=== PATIENT | male | born 1945 | race Caucasian/White ===

== ENCOUNTER 2017-01-10 06:39 | Day surgery (SDC) | payer OTHER, MEDICARE ==
[2017-01-10] VITALS (7 sets, daily range): BP systolic 108–134; BP diastolic 63–75; PULSE 48–56; RESP 16–20; TEMP 97.5–97.7; O2SAT 94–98
[~2017-01-10] VITALS: Ht 190.5 cm; Wt 97.3 kg
[~2017-01-10 06:39] MED LIST: ACIP20TA19 PO; ALPR0.5T3 PO; ATEN-102 PO; LEXA20TA PO
[2017-01-10] MEDS ORDERED: ATEN50TA PO (07:29)
[2017-01-10] MEDS ORDERED: LEXA20TA PO (07:29)
[2017-01-10] MEDS ORDERED: ACIP20TA6 PO (07:29)
[2017-01-10] MEDS ORDERED: ALPR0.5T3 PO (07:29)
[2017-01-10] MEDS ORDERED: SODIUM CHLORIDE 0.9% FLUSH 10 ML FLUSH IV FLUSH PRN ×2 (07:30)
[2017-01-10] MEDS ORDERED: IMPLANTED VASCULAR ACCESS DEVICE/PORT - SODIUM CHLORIDE FLUSH PRN IV FLUSH (07:30)
[2017-01-10] MEDS ORDERED: SODIUM CHLOR 0.9% 1000 ML IV SCH (07:30)
[2017-01-10] MEDS ORDERED: IMPLANTED VASCULAR ACCESS DEVICE/PORT - SODIUM CHLORIDE FLUSH IV FLUSH SCH (07:30)
[2017-01-10] MEDS ORDERED: LIDOCAINE 1%/EPINEPHrine 1:100,000 SOLN 20 ML VIAL ONE (07:53)
[2017-01-10 07:58] LABS: AUTOMATED NEUTROPHIL # 0.2 TH/MM3 (1.8-7.7); BASOPHIL % 0.4 % (0.0-2.0); EOSINOPHIL % 1.5 % (0.0-4.0); LYMPH % 79.9 % (9.0-44.0); LYMPHOCYTE # 0.9 TH/MM3 (1.0-4.8); MEAN CELL VOLUME 96.2 FL (80.0-100.0); MEAN CORPUSCULAR HEMOGLOBIN 33.8 PG (27.0-34.0); MEAN CORPUSCULAR HGB CONC 35.1 % (32.0-36.0); MONO % 1.3 % (0.0-8.0); NEUT % 16.9 % (16.0-70.0); PLATELET COUNT 70 TH/MM3 (150-450); RED BLOOD COUNT 3.12 MIL/MM3 (4.50-5.90); RED CELL DISTRIBUTION WIDTH 17.9 % (11.6-17.2); WHITE BLOOD COUNT 1.2 TH/MM3 (4.0-11.0)
[2017-01-10 08:01] LABS: HEMO FLAGS AUTO DIFF
[2017-01-10] MEDS ORDERED: fentaNYL CITRATE 250 MCG/5 ML AMP ONE (08:32)
[2017-01-10] MEDS ORDERED: MIDAZOLAM HCL 5 MG/5 ML VIAL ONE (08:32)
[2017-01-10 08:42] LABS: BASOPHILS 1 % (0-2); EOSINOPHILS 1 % (0-4); POLYS (SEG NEUTROPHILS) 20 % (16-70); WBC DIFF SAMPLE 100
[2017-01-10 08:45] LABS: OVALOCYTES 1+ (NORMAL); PLATELET ESTIMATE SMEAR LOW (NORMAL); PLATELET MORPHOLOGY NORMAL (NORMAL); SCAN/DIFF FINAL DIFF MANUAL
[2017-01-10 08:47] LABS: NEUTROPHIL # MANUAL DIFF 0.2 TH/MM3 (1.8-7.7)
[2017-01-10 09:27] LABS: BONE MARROW PROCESSING COMPLETE; IRON STAIN DONE; JENNER GIEMSA STAIN DONE
[2017-01-10] MEDS ORDERED: oxyCODONE/ACETAMINOPHEN 5 MG/325 MG TAB PO PRN (10:15)
--- NOTE | 2017-01-10 14:02 | RADRPT ---
EXAM DATE/TIME: 01/10/2017 08:42 [facility] COMPARISON: CT NEEDLE BIOPSY BONE MARROW, February 28, 2016, 8:44. INDICATIONS : Myelodysplastic syndrome SEDATION TIME: 15 minutes BIOPSY SITE: Right iliac bone MEDICATION(S): 1.) 2.5 mg midazolam (Versed) IV 2.) 150 mcg fentanyl (Sublimaze) IV DEVICE(S): 1.) 12 gauge On-Control needle MEDICAL HISTORY : SURGICAL HISTORY : Cholecystectomy ENCOUNTER: Initial ACUITY: 1 day PAIN SCORE: 0/10 LOCATION: Right ilium A total of one core specimen(s) were obtained and sent to the laboratory for pathologic evaluation. PROCEDURE: 1. CT guided bone marrow biopsy. 2. Conscious sedation with continuous EKG and oximetry monitoring. 3. EKG and oximetry remained stable throughout the procedure. Prior to the procedure informed consent was obtained. Any appropriate prior imaging studies were rev iewed. Using automated exposure control and adjustment of the mA and/or kV according to patient size , radiation dose was kept as low as reasonably achievable to obtain optimal diagnostic quality images . The site was prepped in a sterile fashion. Full sterile technique was used, including cap, mask, radha rile gloves and gown and a large sterile sheet. Hand hygiene and 2% chlorhexidine and/or betadine/al cohol prep was utilized per protocol for cutaneous antisepsis. The skin and subcutaneous tissues wer e infiltrated with local anesthetic solution. With CT guidance the previously identified target was localized. Biopsy was performed using the presc ribed needle as above. Following biopsy marrow aspiration was performed with repeat puncture. Adequa te hemostasis was obtained with compression at the puncture site. Follow-up CT scan reveals no hemorrhage. Conscious sedation was performed with the prescribed dosages and duration as above in the presence of an independent trained radiology nurse to assist in the monitoring of the patient. EKG and oximetry remained stable throughout the procedure. The patient tolerated the procedure well and there were no complications. The patient was sent to Radiology Outpatient Unit in stable condition. CONCLUSION: 1. Uncomplicated CT guided bone marrow aspirate. 2. Uncomplicated CT guided bone marrow biopsy. Cecilio Strange MD on January 10, 2017 at 13:59 Board Certified Radiologist. This report was verified electronically.
== END 2017-01-10 11:55 | disposition home or self-care (01) ==
LOC: HRAD 06:39 → HRIP 06:40 → HRAD 11:55
PROVIDERS: ATTEND Internal Medicine
DX: D46.9 Myelodysplastic syndrome, unspecified (principal)
CPT/HCPCS: 38221; 77012; 85007; 85027; 85097; 88305; 88311; 88313; 88341; 88342; 99152; C1830; G0364; J2250; J3010; 20225

== ENCOUNTER 2017-05-10 07:56 | Day surgery (SDC) | payer OTHER, MEDICARE ==
[~2017-05-10] VITALS: Ht 190.5 cm; Wt 94.1 kg
[~2017-05-10 07:56] MED LIST changes: -ACIP20TA19 PO; +ACIP20TA6 PO; -ATEN-102 PO; +ATEN50TA PO
[2017-05-10 08:16] VITALS: BP 139/74; PULSE 83; RESP 18; TEMP 98.2; O2SAT 97
[2017-05-10] MEDS ORDERED: FLUC100T2 PO (08:37)
[2017-05-10] MEDS ORDERED: ACYC400T PO (08:37)
[2017-05-10] MEDS ORDERED: NYST1000 SWISH-SWAL (08:37)
[2017-05-10] MEDS ORDERED: MEGE40S PO (08:37)
[2017-05-10] MEDS ORDERED: CIPR250T52 PO (08:37)
[2017-05-10] MEDS ORDERED: SULF1TAB23 PO (08:37)
[2017-05-10 08:42] LABS: HEMATOCRIT 26.9 % (39.0-51.0); MEAN CELL VOLUME 89.8 FL (80.0-100.0); MEAN CORPUSCULAR HGB CONC 32.3 % (32.0-36.0); PLATELET COUNT 33 TH/MM3 (150-450); RED CELL DISTRIBUTION WIDTH 17.4 % (11.6-17.2)
[2017-05-10 08:50] LABS: APTT (PATIENT) 29.8 SEC (24.3-30.1); HEMO FLAGS AUTO DIFF; INTERNATIONAL NORMALIZED RATIO 1.2 RATIO; PROTHROMBIN TIME - PATIENT 13.4 SEC (9.8-11.6)
[2017-05-10] MEDS ORDERED: SODIUM CHLORIDE 0.9% FLUSH 10 ML FLUSH IV FLUSH PRN (09:00)
[2017-05-10] MEDS ORDERED: SODIUM CHLOR 0.9% 1000 ML IV SCH (09:00)
[2017-05-10] MEDS ORDERED: LIDOCAINE HCL 1% 20 ML VIAL ONE (09:35)
[2017-05-10] MEDS ORDERED: MIDAZOLAM HCL 2 MG/2 ML VIAL ONE ×2 (09:35→10:09)
[2017-05-10 09:41] LABS: BLASTS 88 % (0-0); WBC DIFF SAMPLE 100
[2017-05-10 09:43] LABS: OVALOCYTES 1+ (NORMAL); PLATELET ESTIMATE SMEAR LOW (NORMAL); PLATELET MORPHOLOGY NORMAL (NORMAL)
[2017-05-10 09:44] LABS: SCAN/DIFF FINAL DIFF MANUAL
--- NOTE | 2017-05-10 10:29 | PD.RAD ---
Post CT Procedure Prog Note Pre Procedure Diagnosis: (1) Anemia Post Procedure Diagnosis: (1) Pancytopenia Procedure Date: May 10, 2017 Supervising Radiologist: Ethan Lynne JR Anesthesia: Conscious Sedation Plan of Activity Patient to Unit: ROPU Patient Condition: Good See PACS Report for procedural detail/treatment Biopsy Imaging Guidance: CT Side: Left Biopsy Procedure: Bone Marrow Specimen: Core Biopsy, Fine Needle Aspirate Findings: Good core sample and aspirate of bone marrow from left iliac wing. Jr. Maged,Ethan Recio MD May 10, 2017 10:29
[2017-05-10 10:40] VITALS: BP 111/73; PULSE 72; RESP 18; TEMP 97.5; O2SAT 94
[2017-05-10 10:55] VITALS: BP 100/69; PULSE 65; RESP 18; O2SAT 94
[2017-05-10 11:02] LABS: BONE MARROW PROCESSING COMPLETE
[2017-05-10 11:03] LABS: IRON STAIN DONE; JENNER GIEMSA STAIN DONE
[2017-05-10 11:25] VITALS: BP 98/64; PULSE 60; RESP 16; O2SAT 94
[2017-05-10 11:55] VITALS: BP 109/68; PULSE 60; RESP 18; O2SAT 95
--- NOTE | 2017-05-10 12:00 | RADRPT ---
EXAM DATE/TIME: 05/10/2017 09:57 [facility] COMPARISON: CT NEEDLE BIOPSY BONE MARROW, January 10, 2017, 8:42. INDICATIONS : Myelodysplastic syndrome SEDATION TIME: 20 minutes BIOPSY SITE: Left ilium MEDICATION(S): 1.) 6 mg midazolam (Versed) IV 2.) 300 mcg fentanyl (Sublimaze) IV DEVICE(S): 1.) 12 gauge On-Control needle MEDICAL HISTORY : Lymphoma. SURGICAL HISTORY : Cholecystectomy ENCOUNTER: Initial ACUITY: 1 day PAIN SCORE: 0/10 LOCATION: Left pelvis A total of one core specimen(s) were obtained and sent to the laboratory for pathologic evaluation. PROCEDURE: 1. CT guided bone marrow biopsy. Prior to the procedure informed consent was obtained. Any appropriate prior imaging studies were rev iewed. Using automated exposure control and adjustment of the mA and/or kV according to patient size , radiation dose was kept as low as reasonably achievable to obtain optimal diagnostic quality images . DICOM format image data is available electronically for review and comparison. The site was prepped in a sterile fashion. Full sterile technique was used, including cap, mask, radha rile gloves and gown and a large sterile sheet. Hand hygiene and 2% chlorhexidine and/or betadine/al cohol prep was utilized per protocol for cutaneous antisepsis. The skin and subcutaneous tissues wer e infiltrated with local anesthetic solution. With CT guidance the previously identified target was localized. Biopsy was performed using the presc ribed needle as above. Following biopsy marrow aspiration was performed with repeat puncture. Adequa te hemostasis was obtained with compression at the puncture site. Follow-up CT scan reveals no hemorrhage. Conscious sedation was performed with the prescribed dosages and duration as above in the presence of an independent trained radiology nurse to assist in the monitoring of the patient. EKG and oximetry remained stable throughout the procedure. The patient tolerated the procedure well and there were no complications. The patient was sent to Radiology Outpatient Unit in stable condition. CONCLUSION: 1. Uncomplicated CT guided bone marrow aspirate. 2. Uncomplicated CT guided bone marrow biopsy. Ethan Lynne Jr., MD on May 10, 2017 at 11:57 Board Certified Radiologist. This report was verified electronically.
== END 2017-05-10 12:30 | disposition home or self-care (01) ==
LOC: HRAD 07:56 → HRIP 08:01 → HRAD 12:30
PROVIDERS: ATTEND Internal Medicine
DX: C92.00 Acute myeloblastic leukemia, not having achieved remission (principal); D61.818 Other pancytopenia; Z01.812 Encounter for preprocedural laboratory examination
CPT/HCPCS: 38221; 77012; 85007; 85027; 85097; 85610; 85730; 88305; 88311; 88313; 99152; 99153; C1830; G0364; J1642; J2250; J3010

== ENCOUNTER 2017-05-15 12:10 | Inpatient (IN) | payer OTHER, MEDICARE ==
[~2017-05-15] VITALS: Ht 190.5 cm; Wt 89.7 kg
[~2017-05-15 12:10] MED LIST changes: +ACYC400T PO; +CIPR250T52 PO; +FLUC100T2 PO; +MEGE40S PO; +NYST1000 SWISH-SWAL; +SULF1TAB23 PO
[2017-05-15 12:45] VITALS: BP 116/64; PULSE 81; RESP 18; TEMP 99.1; O2SAT 98
[2017-05-15] MEDS ORDERED: SODIUM CHLOR 0.9% 1000 ML INJ 1,000 ML IV SCH (13:00)
[2017-05-15] MEDS ORDERED: ALTEPLASE RECOMBINANT 2 MG VIAL IVF PRN (15:00)
[2017-05-15 15:40] LABS: HEMATOCRIT 22.2 % (39.0-51.0); MEAN CELL VOLUME 91.1 FL (80.0-100.0); MEAN CORPUSCULAR HEMOGLOBIN 29.8 PG (27.0-34.0); MEAN CORPUSCULAR HGB CONC 32.7 % (32.0-36.0); PLATELET COUNT 13 TH/MM3 (150-450); RED BLOOD COUNT 2.43 MIL/MM3 (4.50-5.90); RED CELL DISTRIBUTION WIDTH 17.5 % (11.6-17.2); WHITE BLOOD COUNT 136.4 TH/MM3 (4.0-11.0)
[2017-05-15 15:49] LABS: HEMO FLAGS AUTO DIFF
--- NOTE | 2017-05-15 15:52 | RADRPT ---
EXAM DATE/TIME: 05/15/2017 14:57 [facility] COMPARISON: No previous studies available for comparison. INDICATIONS : T-cell lymphoma. Pre-chemotherapy. DOSE: 20.1 mCi Tc99m Ultratag labeled red blood cells IV PROJECTIONS: SAMARIA and LPO 45 EF: 72% MEDICAL HISTORY : Lymphoma. SURGICAL HISTORY : Inguinal hernia repair. Cholecystectomy. ENCOUNTER: Initial ACUITY: 1 day PAIN SCALE: 2/10 LOCATION: Bilateral chest TECHNIQUE: Following the modified in [place] Spill Control labeling of autologous red blood cells and reinjection, planar image s gated to the ECG cycle were obtained in specified projections. Fourier analysis and calculation of ejection fraction were performed. FINDINGS: CHAMBER-SIZE: There is normal size and configuration to the left ventricle, right ventricle, and atria. WALL MOTION: No wall motion abnormalities seen. No segmental hypokinesia is observed. MISCELLANEOUS: No abnormal accumulation of red cells is seen. CONCLUSION: Normal study. Ejection fraction 72% Man Burden MD on May 15, 2017 at 15:50 Board Certified Radiologist. This report was verified electronically.
[2017-05-15 16:00] VITALS: BP 135/65; PULSE 73; RESP 18; TEMP 98.9; O2SAT 94
[2017-05-15 16:06] LABS: ALT (GPT) 28 U/L (12-78); ANION GAP 8 MEQ/L (5-15); AST (GOT) 28 U/L (15-37); BICARBONATE 26.4 MEQ/L (21.0-32.0); BLOOD UREA NITROGEN 12 MG/DL (7-18); CHLORIDE 107 MEQ/L (98-107); GLOMERULAR FILTRATION RATE 57 ML/MIN (>89); POTASSIUM 3.5 MEQ/L (3.5-5.1); SODIUM (NA) 141 MEQ/L (136-145); URIC ACID 6.5 MG/DL (2.6-7.2)
[2017-05-15 16:15] LABS: ALKALINE PHOSPHATASE 54 U/L (45-117); LDH SERUM 1064 U/L (87-241); TOTAL BILIRUBIN ADULT 0.3 MG/DL (0.2-1.0)
[2017-05-15 16:22] LABS: APTT (PATIENT) 32.9 SEC (24.3-30.1); INTERNATIONAL NORMALIZED RATIO 1.2 RATIO; PROTHROMBIN TIME - PATIENT 13.4 SEC (9.8-11.6)
[2017-05-15 16:36] LABS: BLASTS 83 % (0-0); WBC DIFF SAMPLE 100
[2017-05-15 16:37] LABS: OVALOCYTES 1+ (NORMAL); PLATELET ESTIMATE SMEAR LOW (NORMAL); PLATELET MORPHOLOGY NORMAL (NORMAL); SCAN/DIFF FINAL DIFF MANUAL
[2017-05-15] MEDS ORDERED: SODIUM CHLOR 0.9% 250 ML INJ 250 ML IV ONE (17:15)
--- NOTE | 2017-05-15 18:37 | PD.RAD ---
Post Procedure Progress Note Pre Procedure Diagnosis: (1) MDS (myelodysplastic syndrome), high grade Post Procedure Diagnosis: (1) MDS (myelodysplastic syndrome), high grade Procedure Date: May 15, 2017 Supervising Radiologist: Man Burden Proceduralist/Assist: RT Mike(R)(CV) Anesthesia: Local Plan of Activity Patient to Unit: Nursing Unit Patient Condition: Fair See PACS Report for procedural detail/treatment Central Venous Access Device Procedure 1 Left Internal Jugular Hemodialysis Catheter Non-Tunneled Placement dual lumen English: 14 Additional Detail: 20 cm Man Gonzalez MD May 15, 2017 18:37
[2017-05-15] MEDS ORDERED: HEPARIN SODIUM - IV 2,000 UNITS/2 ML VIAL IV FLUSH PRN (18:45)
--- NOTE | 2017-05-15 18:48 | RADRPT ---
EXAM DATE/TIME: 05/15/2017 17:46 [facility] COMPARISON: No previous studies available for comparison. INDICATIONS : Patient is in need of a temporary phoresis catheter due recurrent myelodysplastic syndrome. MEDICAL HISTORY : History of anemia with excessive blasts, T-cell cutaneous lymphoma, thrombocytopenia, pancytopenia, B arrett's esophagus. SURGICAL HISTORY : History of port placement, bone marrow biopsy, cholecystectomy, bilateral knee surgery. ENCOUNTER: Subsequent ACUITY: > 1 year PAIN SCORE: 0/10 FLUORO TIME: 0.9 minutes IMAGE SERIES: 0 ACCESS: Left internal jugular vein MEDICATION(S): 1.) 2500 units Heparin catheter lock DEVICE(S): 1.) 14 [place] dual lumen 20 cm Schon catheter PROCEDURE : 1. Ultrasound guided venipuncture. 2. Fluoroscopic guidance. 3. Central line placement. The risks, benefits and alternatives to the procedure were explained and verbal and written consent w as obtained. The site was prepped in sterile fashion. Full sterile technique was used, including ca p, mask, sterile gloves and gown and a large sterile sheet. Hand hygiene and 2% chlorhexidine prep w as utilized per protocol for cutaneous antisepsis with appropriate dry time for site. Sterile gel an d sterile probe cover were utilized for ultrasound guidance. The skin and subcutaneous tissues were infiltrated with local anesthetic solution. A suitable site a kevin the vein was selected with ultrasound and fluoroscopic guidance. A small incision was made. Th e vein was accessed under direct ultrasound visualization using the micropuncture technique. The mikey ropuncture set was exchanged for a 0.035 wire. The tract was dilated. The catheter was advanced int o position under direct fluoroscopic visualization. The catheter was fixed in place with suture and a sterile dressing was applied. The patient tolerated the procedure well and there were no complications. CONCLUSION: Uncomplicated line placement as above. Man Burden MD on May 15, 2017 at 18:46 Board Certified Radiologist. This report was verified electronically.
[2017-05-15] MEDS ORDERED: HYDROXYUREA 500 MG CAP PO ONE (19:30)
[2017-05-15 20:00] VITALS: BP 118/59; PULSE 71; RESP 18; TEMP 99.3; O2SAT 97
[2017-05-15] MEDS: ALLOPURINOL 100 MG TAB PO SCH (20:36)
[2017-05-15 21:00] VITALS: PULSE 69
[2017-05-15] MEDS ORDERED: CALCIUM GLUCONATE INJ 4 GM in SODIUM CHLOR 0.9% 250 ML INJ 200 ML IV SCH (23:15)
[2017-05-15] MEDS ORDERED: ANTICOAGULANT CITRATE DEXTROSE SOLN-A 1L OTHER ONE (23:15)
[2017-05-15] MEDS ORDERED: SODIUM CHLOR 0.9% 1000 ML IV SCH (23:15)
[2017-05-15] MEDS ORDERED: HEPARIN SODIUM - 10,000 UNITS/ML 1ML VIAL IV FLUSH PRN (23:15)
[2017-05-15] MEDS: ALPRAZolam 0.25 MG TAB PO PRN (23:27)
[2017-05-16] VITALS (11 sets, daily range): BP systolic 112–144; BP diastolic 64–83; PULSE 62–109; RESP 18–20; TEMP 96–98.9; O2SAT 71–99
[2017-05-16] MEDS: ACETAMINOPHEN 325 MG TAB PO PRN ×2 (00:07→13:59)
[2017-05-16] MEDS: LEVOFLOXACIN 500 MG TAB PO SCH ×2 (03:54→08:36)
[2017-05-16 05:57] LABS: INTERNATIONAL NORMALIZED RATIO 1.2 RATIO; PROTHROMBIN TIME - PATIENT 13.9 SEC (9.8-11.6)
--- NOTE | 2017-05-16 06:17 | MH ---
cc: AYE REDDY DATE OF ADMISSION: 05/15/2017 DATE OF 1945 REASON FOR ADMISSION Patient with acute myeloid leukemia with blast crisis. CHIEF COMPLAINT Dyspnea, headaches. HISTORY OF PRESENT ILLNESS Mr. 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 He recently had a bone marrow biopsy which confirmed the transformation of his disease. He had approximately 80-90% blast cells in the bone marrow. He was originally diagnosed with MDS in early 2015. At that time he was found to have anywhere from 10-15% blast cells. Flt3 mutation was negative, NPM1 positive. He was treated with Vidaza with good treatment response. He had recovery of his blood counts. She remained in remission until a few months ago when he became profoundly pancytopenic. Vidaza was stopped. He was receiving supportive care with platelets and packed red blood cell transfusions. The patient was switched to Dacogen and received one cycle of this treatment. However, his disease continued to progress and he remained severely pancytopenic. Over the last 10 days he has developed leukocytosis and his white blood cell count has been precipitously rising. The patient is now being admitted to the hospital for induction chemotherapy for transformed acute myeloid leukemia. This case was discussed with [facility]. The patient has seen the transplant team and was being considered for stem-cell transplant. He was awaiting an appropriate donor. In light of recent transformation to acute myeloid leukemia with high blast count, the patient will need induction chemotherapy to bring his disease into remission prior to any consideration for stem-cell transplant. On admission today his WBC is 136.4, his hemoglobin is 7.2 and his platelet count is 13. He complains of shortness of breath. He has also been having occasional headaches. He denies any nose bleeds or gum bleeds, no fevers or chills. No diarrhea or constipation. He denies any pain. ECOG performance status is 0. REVIEW OF SYSTEMS A comprehensive 14-point review of systems was completed which is negative except as described in the HPI. PAST MEDICAL HISTORY History of myelodysplastic syndrome with conversion to acute myeloid leukemia. PAST SURGICAL HISTORY None. MEDICATIONS 1. Citalopram 20 mg daily. 2. Protonix 20 mg daily. 3. Megace 300 p.o. daily. 4. Bactrim DS Sunday, Sunday and Sunday. 5. Diflucan 100 mg p.o. daily. 6. Acyclovir 400 mg p.o. b.i.d. 7. Cipro 500 mg Sunday, and Saturdays. ALLERGIES No known drug allergies. FAMILY HISTORY Reviewed and is noncontributory to this admission. SOCIAL HISTORY He does not smoke cigarettes. Rare alcohol intake. Admits to marijuana use. PHYSICAL EXAMINATION VITAL SIGNS: Blood pressure is 116/64, pulse is in the 80s, temperature is 99.1. GENERAL: Well-developed, well-nourished male in no apparent distress. HEENT: Pupils are equal, round, reactive to light. EOMI. No oral thrush. No oral lesions. NECK: Supple. No JVD, no bruits. No lymphadenopathy. CHEST: Clear to auscultation bilaterally. CARDIAC: S1, S2. Regular rate and rhythm. ABDOMEN: Soft, nontender, nondistended. Bowel sounds are present. EXTREMITIES: Without any edema, erythema or cyanosis. SKIN: Without any petechiae, lesion or bruises. NEURO: No focal deficits. Complains of headaches. LABORATORY DATA WBCs 136.4, hemoglobin 7.2, platelet count 13. Serum chemistries show sodium of 141, potassium 3.5, chloride 107, CO2 26.4, BUN 12, creatinine 1.25, GFR is 57, uric acid is 6.5, phosphorus 3.5, AST is 28, ALT 28, alk phos is 54, LDH is elevated to 1064, albumin is 3.2. ASSESSMENT AND PLAN This is a 72-year-old male who has a history of MDS which has now transformed to acute myeloid leukemia. He presents with hyperleukocytosis and acute blast crises. 1. Leukocytosis/acute blast crisis/high-risk leukemia, conversion from MDS. In light of a high white blood cell count and symptoms of dyspnea and occasional headaches, we will proceed with emergent leukapheresis. He has a high risk of developing a thrombotic events. We have contacted [facility] and I have signed orders for white blood cell depletion. I will give him one dose of Hydrea today. In order to control his blood counts, he needs to be started on induction chemotherapy as soon as possible. We will begin his treatment tomorrow. If he has any worsening of symptoms such as worsening headaches, we will need to obtain MRI of the brain with and without contrast. If he becomes more dyspneic, then we will consider CT of the chest with and without contrast. In the absence of any worsening of these symptoms, we will continue to monitor. 2. 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 He recently had a bone marrow biopsy which confirmed this transformation. He has up to 80% blast cell involvement in the bone marrow. FISH and cytogenetic studies are pending. I will follow up. We will order testing for PML/RAR alpha. I have signed off on his chemotherapy orders. He will be treated with idarubicin and cytarabine 7+3 regimen. 3. High risk for tumor lysis syndrome. We will monitor uric acid, phosphorus and metabolic profile on a daily basis. I am starting him on allopurinol 100 mg p.o. b.i.d. He does have elevated LDH. At this time the uric acid is within normal range. If it does go up, we will consider giving him rasburicase. 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 Hemoglobin is 7.2. We will transfuse him for hemoglobin of 7 or less. He will be given irradiated/CMV-negative blood products. We will avoid over-transfusion to reduce the risk of alloantibodies formation. 5. Thrombocytopenia. The threshold for platelet transfusions is a platelet count of 10 or less. 6. ID prophylaxis. We will continue with Bactrim double strength Sunday, Sunday and Sunday, levofloxacin 500 mg daily which will be switched to Cipro 500 Tuesdays, and Saturdays if he remains afebrile over the next few days. We will continue oral Diflucan 100 mg daily and prophylaxis with acyclovir 400 mg p.o. b.i.d. 7. Fluid, electrolyte and nutrition. Continue Megace. Encourage oral intake, neutropenic diet. Check daily magnesium, phosphorus and calcium. 8. High risk for DIC/coagulopathy. Check daily fibrinogen levels. We will check his coags and LDH and haptoglobin [id number]. MD LETITIA Kaminski/JOO /12:59 AM /5:44 AM KELLY
[2017-05-16 06:19] LABS: ALT (GPT) 20 U/L (12-78); ANION GAP 6 MEQ/L (5-15); AST (GOT) 24 U/L (15-37); BICARBONATE 29.7 MEQ/L (21.0-32.0); BLOOD UREA NITROGEN 10 MG/DL (7-18); CHLORIDE 105 MEQ/L (98-107); GLOMERULAR FILTRATION RATE 64 ML/MIN (>89); POTASSIUM 3.2 MEQ/L (3.5-5.1); SODIUM (NA) 141 MEQ/L (136-145); URIC ACID 5.8 MG/DL (2.6-7.2)
[2017-05-16 06:21] LABS: ALKALINE PHOSPHATASE 49 U/L (45-117); TOTAL BILIRUBIN ADULT 0.4 MG/DL (0.2-1.0)
[2017-05-16] MEDS ORDERED: HYDROXYUREA 500 MG CAP PO ONE (07:00)
[2017-05-16] MEDS: ALLOPURINOL 100 MG TAB PO SCH ×2 (08:36→20:59)
[2017-05-16] MEDS: SULFAMETHOXAZOLE-TRIMETHOPRIM DS 800-160 MG TAB PO SCH (08:36)
[2017-05-16] MEDS: PANTOPRAZOLE SOD 20 MG DELAYED RELEASE TAB PO SCH (08:36)
[2017-05-16] MEDS: CITALOPRAM HYDROBROMIDE 20 MG TAB PO SCH (08:36)
[2017-05-16] MEDS: FLUCONAZOLE 100 MG TAB PO SCH (08:37)
[2017-05-16] MEDS: ACYCLOVIR 200 MG CAP PO SCH ×2 (08:37→20:59)
[2017-05-16] MEDS ORDERED: MEGESTROL ACETATE 40 MG TAB PO SCH (09:00)
--- NOTE | 2017-05-16 09:17 | RADRPT ---
EXAM DATE/TIME: 05/16/2017 07:41 [facility] COMPARISON: CHEST SINGLE AP, October 26, 2015, 19:25. INDICATIONS : Short of breath. MEDICAL HISTORY : Lymphoma. SURGICAL HISTORY : Inguinal hernia repair. Cholecystectomy ENCOUNTER: Subsequent ACUITY: 1 day PAIN SCORE: 0/10 LOCATION: Bilateral chest FINDINGS: Right [id number] catheter tip and left internal jugular catheter tip projects over the caval atria l junction. No evidence of pneumothorax. The lungs are symmetrically aerated. No focal infiltrate seen. The heart is normal in size. The central bronchopulmonary markings and hemidiaphragms well de lineated. CONCLUSION: The lungs are clear. No evidence of pneumothorax. Ethan Sabillon MD on May 16, 2017 at 9:14 Board Certified Radiologist. This report was verified electronically.
[2017-05-16 10:04] LABS: MEAN CORPUSCULAR HEMOGLOBIN 30.2 PG (27.0-34.0); MEAN CORPUSCULAR HGB CONC 34.3 % (32.0-36.0); PLATELET COUNT 22 TH/MM3 (150-450); RED BLOOD COUNT 2.33 MIL/MM3 (4.50-5.90); RED CELL DISTRIBUTION WIDTH 16.7 % (11.6-17.2); WHITE BLOOD COUNT 44.4 TH/MM3 (4.0-11.0)
[2017-05-16 10:07] LABS: HEMO FLAGS AUTO DIFF
[2017-05-16 10:12] LABS: HEMATOCRIT 20.5 % (39.0-51.0)
[2017-05-16] MEDS: ONDANSETRON HCL 4 MG/2 ML VIAL IV PUSH PRN (10:30)
[2017-05-16] MEDS ORDERED: MAGICADU2 SWISH-SWAL (10:46)
[2017-05-16 10:53] LABS: BLASTS 88 % (0-0); NEUTROPHIL # MANUAL DIFF 0.4 TH/MM3 (1.8-7.7); PLATELET ESTIMATE SMEAR LOW (NORMAL); PLATELET MORPHOLOGY NORMAL (NORMAL); POLYS (SEG NEUTROPHILS) 1 % (16-70); SCAN/DIFF FINAL DIFF MANUAL; SMUDGE CELLS PRESENT PRESENT; WBC DIFF SAMPLE 100
[2017-05-16] MEDS ORDERED: SODIUM CHLOR 0.9% 250 ML INJ 250 ML IV ONE (11:30)
--- NOTE | 2017-05-16 11:59 | PD.ONC.PN ---
Subjective Subjective Remarks Afebrile overnight. Patient resting in bed. Feeling better after leukapheresis and blood transfusion overnight. multiple questions about upcoming hospitalization and chemotherapy Objective Data Date Time Temp Pulse Resp B/P (MAP) Pulse Ox O2 Delivery O2 Flow Rate FiO2 05/16/17 08:00 96.4 70 18 112/71 (85) 98 05/16/17 05:59 96.1 75 20 137/76 99 05/16/17 05:17 97.5 73 18 121/74 97 05/16/17 04:22 96.8 84 20 122/72 99 05/16/17 04:07 97.6 76 19 121/71 71 05/16/17 02:00 19 05/15/17 21:00 69 05/15/17 20:00 99.3 71 18 118/59 (78) 97 05/15/17 16:00 98.9 73 18 135/65 (88) 94 05/15/17 12:45 99.1 81 18 116/64 (81) 98 05/16/17 05/16/17 05/16/17 07:00 15:00 23:00 Intake Total 347 ml 410 ml Balance 347 ml 410 ml Result Diagram: 05/16/17 0945 05/16/17 0514 Laboratory Results Laboratory Tests Test 05/15/17 14:12 05/15/17 20:30 05/16/17 05:14 05/16/17 09:45 White Blood Count 136.4 TH/MM3 44.4 TH/MM3 Red Blood Count 2.43 MIL/MM3 2.33 MIL/MM3 Hemoglobin 7.2 GM/DL 7.0 GM/DL Hematocrit 22.2 % 20.5 % Mean Corpuscular Volume 91.1 FL 88.0 FL Mean Corpuscular Hemoglobin 29.8 PG 30.2 PG Mean Corpuscular Hemoglobin Concent 32.7 % 34.3 % Red Cell Distribution Width 17.5 % 16.7 % Platelet Count 13 TH/MM3 22 TH/MM3 Mean Platelet Volume 8.4 FL 8.5 FL Lymphocytes (%) (Auto) % CBC Comment AUTO DIFF AUTO DIFF Differential Total Cells Counted 100 100 Lymphocytes % 17 % 10 % Neutrophils # (Manual) 0.0 TH/MM3 0.4 TH/MM3 Differential Comment FINAL DIFF MANUAL FINAL DIFF MANUAL Blastocytes 83 % 88 % Platelet Estimate LOW LOW Platelet Morphology Comment NORMAL NORMAL Ovalocytes 1+ Prothrombin Time 13.4 SEC 13.9 SEC Prothromb Time International Ratio 1.2 RATIO 1.2 RATIO Activated Partial Thromboplast Time 32.9 SEC Blood Urea Nitrogen 12 MG/DL 10 MG/DL Creatinine 1.25 MG/DL 1.13 MG/DL Random Glucose 98 MG/DL 103 MG/DL Total Protein 6.9 GM/DL 5.9 GM/DL Albumin 3.2 GM/DL 2.8 GM/DL Calcium Level 9.0 MG/DL 9.1 MG/DL Uric Acid 6.5 MG/DL 5.8 MG/DL Alkaline Phosphatase 54 U/L 49 U/L Aspartate Amino Transf (AST/SGOT) 28 U/L 24 U/L Alanine Aminotransferase (ALT/SGPT) 28 U/L 20 U/L Lactate Dehydrogenase 1064 U/L Total Bilirubin 0.3 MG/DL 0.4 MG/DL Sodium Level 141 MEQ/L 141 MEQ/L Potassium Level 3.5 MEQ/L 3.2 MEQ/L Chloride Level 107 MEQ/L 105 MEQ/L Carbon Dioxide Level 26.4 MEQ/L 29.7 MEQ/L Anion Gap 8 MEQ/L 6 MEQ/L Estimat Glomerular Filtration Rate 57 ML/MIN 64 ML/MIN Phosphorus Level 3.5 MG/DL Haptoglobin 189 MG/DL Fibrinogen 449 mg/dL Neutrophils % (Manual) 1 % Monocytes % 1 % Smudge Cells PRESENT Red Cell Morphology Comment NORMAL Imaging Studies Last 24 hours Impressions Chest X-Ray 05/16/17 0700 Signed Impressions: Service Date/Time: Tuesday, May 16, 2017 07:41 - CONCLUSION: The lungs are clear. No evidence of pneumothorax. Ethan Sabillon MD Administered Medications Medications (Trade) Dose Ordered Sig/Ivelisse Route PRN Reason Start Time Stop Time Status Last Admin Dose Admin Acetaminophen (Tylenol) 650 mg Q4H PRN PO fever>100.4 05/15/17 13:00 05/16/17 00:07 Citalopram Hydrobromide (CeleXA) 20 mg DAILY PO 05/16/17 09:00 05/16/17 08:36 Alprazolam (Xanax) 0.25 mg Q4H PRN PO anxiety 05/15/17 14:00 05/15/17 23:27 Pantoprazole Sodium (Protonix) 20 mg DAILY PO 05/16/17 09:00 05/16/17 08:36 Ondansetron HCl (Zofran Inj) 4 mg Q6HR PRN IV PUSH nausea 05/15/17 14:00 05/16/17 10:30 Allopurinol (Zyloprim) 100 mg BID PO 05/15/17 21:00 05/16/17 08:36 Levofloxacin (Levaquin) 500 mg DAILY PO 05/16/17 00:30 05/16/17 08:36 Trimethoprim/ Sulfamethoxazole (Bactrim Ds 800-160 Mg) 1 tab MoWeFr@09 PO 05/16/17 09:00 05/16/17 08:36 Fluconazole (Diflucan) 100 mg DAILY PO 05/16/17 09:00 05/16/17 08:37 Acyclovir (Zovirax) 400 mg BID PO 05/16/17 09:00 05/16/17 08:37 Objective Remarks GENERAL: Elderly male upright in bed in nad SKIN: Warm and dry. HEAD: Normocephalic. EYES: No injection or drainage. MOUTH: oral ulcers, left tongue NECK: Supple, trachea midline. vas-cath, left neck. no bleeding CARDIOVASCULAR: Regular rate and rhythm RESPIRATORY: Breath sounds equal bilaterally. No accessory muscle use. GASTROINTESTINAL: Abdomen soft, non-tender, nondistended. EXTREMITIES: No cyanosis NEUROLOGICAL: awake and alert, normal speech. Assessment/Plan Problem List: (1) AML (acute myeloblastic leukemia) ICD Codes: C92.00 - Acute myeloblastic leukemia, not having achieved remission Plan: --FISH and cytogenetic studies are pending. 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 --He presented with hyperleukocytosis and acute blast crises. --on Allopurinol 100mg PO BID for prophylaxis 05/15/17: Admission. given Hydrea. [facility] performed Leukapheresis bringing WBC from >100K to 44K. 05/16/17: D1. SONIA-C + Maria Del Rosario. 1 unit pRBC (2) Pancytopenia ICD Codes: D61.818 - Other pancytopenia Status: Acute Plan: --transfuse him for hemoglobin of 7 or less. -- irradiated/CMV-negative blood products. --transfuse for platelet count of 10 or less. --Bactrim DS MWF, Levaquin, Diflucan 100mg daily, Acyclovir 400mg PO BID (3) Coagulopathy ICD Codes: D68.9 - Coagulation defect, unspecified Plan: --Check daily fibrinogen levels. --check his coags and LDH and haptoglobin [id number]. Assessment 72y/o male with acute myeloid leukemia with blast crisis. 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 Plan 1. start SONIA-C + Maria Del Rosario. 2. give 1 unit pRBC 3. resume magic mouthwash for mouth ulcers Attending Statement The exam, history, and the medical decision-making described in the above note were completed with the assistance of the mid-level provider. I reviewed and agree with the findings presented. I attest that I had a [id number] encounter with the patient on the same day, and personally performed and documented my assessment and findings in the medical record. HIgh risk AML with transformation from MDS Hyperleukocytosis better after leukophoresis and Hydrea Will not need any further Leukophoresis Start induction chemotherapy D#1 Transfuse 1 unit of platelets no evidence of DIC Check Uric acid in am check fibrinogen am d/w rn o/n events reviewed Problem Qualifiers (1) AML (acute myeloblastic leukemia): Qualified Codes: C92.00 - Acute myeloblastic leukemia, not having achieved remission Oma Chavez May 16, 2017 11:59 Shar Ibanez MD May 16, 2017 23:19
[2017-05-16] MEDS: NYSTAT/DIPHENHY/LIDO MOUTHWASH (Adult) 120ML SWISH-SWAL SCH ×3 (13:00→21:00)
[2017-05-16] MEDS: SODIUM CHLOR 0.9% 1000 ML INJ 1,000 ML IV SCH (13:00)
[2017-05-16] MEDS ORDERED: POTASSIUM CHLORIDE 20 MEQ CONTROLLED RELEASE TAB PO ONE (13:00)
[2017-05-16] MEDS: diphenhydrAMINE HCL 25 MG CAP PO PRN (13:59)
[2017-05-16] MEDS: SODIUM CHLORIDE 0.9% IV SCH (14:47)
[2017-05-16] MEDS: IDARUBICIN IV SCH (14:47)
[2017-05-16] MEDS: ALPRAZolam 0.25 MG TAB PO PRN ×2 (14:49→21:03)
[2017-05-16] MEDS: GRANISETRON INJ 1 MG, DEXAMETHASONE INJ 20 MG in SODIUM CHLORIDE 0.9% INJ 50 ML IV SCH (15:35)
[2017-05-16] MEDS: MEGESTROL ACETATE SUSP 400 MG/10 ML CUP PO SCH (15:43)
[2017-05-16] MEDS: SODIUM CHLORID 0.9% IV SCH (17:47)
[2017-05-16] MEDS: CYTARABINE IV SCH (17:47)
[2017-05-17] VITALS (8 sets, daily range): BP systolic 114–137; BP diastolic 66–79; PULSE 66–95; RESP 16–18; TEMP 96.7–97.7; O2SAT 97–99
[2017-05-17] MEDS: SODIUM CHLOR 0.9% 1000 ML INJ 1,000 ML IV SCH ×2 (02:20→15:40)
[2017-05-17 06:33] LABS: HEMATOCRIT 23.6 % (39.0-51.0); MEAN CELL VOLUME 85.5 FL (80.0-100.0); MEAN CORPUSCULAR HEMOGLOBIN 29.3 PG (27.0-34.0); MEAN CORPUSCULAR HGB CONC 34.2 % (32.0-36.0); RED BLOOD COUNT 2.76 MIL/MM3 (4.50-5.90); RED CELL DISTRIBUTION WIDTH 18.4 % (11.6-17.2); WHITE BLOOD COUNT 23.5 TH/MM3 (4.0-11.0)
[2017-05-17 06:35] LABS: HEMO FLAGS AUTO DIFF; PLATELET COUNT 17 TH/MM3 (150-450)
[2017-05-17 07:00] LABS: APTT (PATIENT) 29.6 SEC (24.3-30.1); INTERNATIONAL NORMALIZED RATIO 1.2 RATIO; PROTHROMBIN TIME - PATIENT 13.1 SEC (9.8-11.6)
[2017-05-17 07:19] LABS: ALKALINE PHOSPHATASE 53 U/L (45-117); ALT (GPT) 26 U/L (12-78); ANION GAP 7 MEQ/L (5-15); AST (GOT) 26 U/L (15-37); BICARBONATE 26.3 MEQ/L (21.0-32.0); BLOOD UREA NITROGEN 15 MG/DL (7-18); CHLORIDE 105 MEQ/L (98-107); GLOMERULAR FILTRATION RATE 66 ML/MIN (>89); LDH SERUM 1018 U/L (87-241); MAGNESIUM 1.8 MG/DL (1.5-2.5); POTASSIUM 4.2 MEQ/L (3.5-5.1); SODIUM (NA) 138 MEQ/L (136-145); TOTAL BILIRUBIN ADULT 0.3 MG/DL (0.2-1.0); URIC ACID 4.6 MG/DL (2.6-7.2)
[2017-05-17 08:26] LABS: BASOPHILS 0 % (0-2); BLASTS 84 % (0-0); CORRECTED NUCLEATED RBC 1 /100 WBC (0-0); WBC DIFF SAMPLE 100
[2017-05-17 08:27] LABS: ACANTHOCYTES OCC (NORMAL); PLATELET ESTIMATE SMEAR RARE (NORMAL); PLATELET MORPHOLOGY NORMAL (NORMAL); SCAN/DIFF FINAL DIFF MANUAL; SMUDGE CELLS PRESENT PRESENT
[2017-05-17] MEDS: ACYCLOVIR 200 MG CAP PO SCH ×2 (08:51→21:03)
[2017-05-17] MEDS: LEVOFLOXACIN 500 MG TAB PO SCH (08:51)
[2017-05-17] MEDS: FLUCONAZOLE 100 MG TAB PO SCH (08:51)
[2017-05-17] MEDS: NYSTAT/DIPHENHY/LIDO MOUTHWASH (Adult) 120ML SWISH-SWAL SCH ×4 (08:52→21:04)
[2017-05-17] MEDS: ALLOPURINOL 100 MG TAB PO SCH ×2 (08:52→21:03)
[2017-05-17] MEDS: PANTOPRAZOLE SOD 20 MG DELAYED RELEASE TAB PO SCH (08:52)
[2017-05-17] MEDS: CITALOPRAM HYDROBROMIDE 20 MG TAB PO SCH (08:52)
[2017-05-17] MEDS: MEGESTROL ACETATE SUSP 400 MG/10 ML CUP PO SCH (08:52)
[2017-05-17] MEDS: ALPRAZolam 0.25 MG TAB PO PRN ×2 (08:56→21:03)
--- NOTE | 2017-05-17 09:15 | PD.ONC.PN ---
Subjective Subjective Remarks Afebrile overnight. Patient resting in room in nad. "I feel great today." Tolerated chemo yesterday. Objective Data Date Time Temp Pulse Resp B/P (MAP) Pulse Ox O2 Delivery O2 Flow Rate FiO2 05/17/17 05:40 96.9 95 18 133/78 (96) 98 05/17/17 04:00 70 05/17/17 00:00 97.7 74 17 115/69 (84) 97 05/17/17 00:00 76 05/16/17 20:00 96.7 77 18 134/71 (92) 96 05/16/17 20:00 66 05/16/17 16:00 68 05/16/17 15:49 98.9 80 18 144/83 97 05/16/17 15:30 62 18 129/72 95 05/16/17 14:22 97.3 76 18 126/67 (86) 97 05/16/17 12:00 96.0 109 20 120/64 (82) 96 05/16/17 12:00 87 Result Diagram: 05/17/17 0516 05/17/17 0516 Laboratory Results Laboratory Tests Test 05/16/17 09:45 05/17/17 05:16 05/17/17 05:35 White Blood Count 44.4 TH/MM3 23.5 TH/MM3 Red Blood Count 2.33 MIL/MM3 2.76 MIL/MM3 Hemoglobin 7.0 GM/DL 8.1 GM/DL Hematocrit 20.5 % 23.6 % Mean Corpuscular Volume 88.0 FL 85.5 FL Mean Corpuscular Hemoglobin 30.2 PG 29.3 PG Mean Corpuscular Hemoglobin Concent 34.3 % 34.2 % Red Cell Distribution Width 16.7 % 18.4 % Platelet Count 22 TH/MM3 17 TH/MM3 Mean Platelet Volume 8.5 FL 8.5 FL CBC Comment AUTO DIFF AUTO DIFF Differential Total Cells Counted 100 100 Neutrophils % (Manual) 1 % Lymphocytes % 10 % 16 % Monocytes % 1 % Neutrophils # (Manual) 0.4 TH/MM3 Differential Comment FINAL DIFF MANUAL FINAL DIFF MANUAL Blastocytes 88 % 84 % Smudge Cells PRESENT PRESENT Platelet Estimate LOW RARE Platelet Morphology Comment NORMAL NORMAL Red Cell Morphology Comment NORMAL Basophils % 0 % Nucleated Red Blood Cells 1 /100 WBC Acanthocytes OCC Prothrombin Time 13.1 SEC Prothromb Time International Ratio 1.2 RATIO Activated Partial Thromboplast Time 29.6 SEC Fibrinogen 449 mg/dL Blood Urea Nitrogen 15 MG/DL Creatinine 1.10 MG/DL Random Glucose 127 MG/DL Total Protein 6.5 GM/DL Albumin 3.0 GM/DL Calcium Level 8.6 MG/DL Phosphorus Level 4.1 MG/DL Magnesium Level 1.8 MG/DL Uric Acid 4.6 MG/DL Alkaline Phosphatase 53 U/L Aspartate Amino Transf (AST/SGOT) 26 U/L Alanine Aminotransferase (ALT/SGPT) 26 U/L Lactate Dehydrogenase 1018 U/L Total Bilirubin 0.3 MG/DL Sodium Level 138 MEQ/L Potassium Level 4.2 MEQ/L Chloride Level 105 MEQ/L Carbon Dioxide Level 26.3 MEQ/L Anion Gap 7 MEQ/L Estimat Glomerular Filtration Rate 66 ML/MIN Haptoglobin 223 MG/DL Administered Medications Medications (Trade) Dose Ordered Sig/Ivelisse Route PRN Reason Start Time Stop Time Status Last Admin Dose Admin Acetaminophen (Tylenol) 650 mg Q4H PRN PO fever>100.4 05/15/17 13:00 05/16/17 00:07 Citalopram Hydrobromide (CeleXA) 20 mg DAILY PO 05/16/17 09:00 05/17/17 08:52 Alprazolam (Xanax) 0.25 mg Q4H PRN PO anxiety 05/15/17 14:00 05/17/17 08:56 Pantoprazole Sodium (Protonix) 20 mg DAILY PO 05/16/17 09:00 05/17/17 08:52 Ondansetron HCl (Zofran Inj) 4 mg Q6HR PRN IV PUSH nausea 05/15/17 14:00 05/16/17 10:30 Allopurinol (Zyloprim) 100 mg BID PO 05/15/17 21:00 05/17/17 08:52 Levofloxacin (Levaquin) 500 mg DAILY PO 05/16/17 00:30 05/17/17 08:51 Trimethoprim/ Sulfamethoxazole (Bactrim Ds 800-160 Mg) 1 tab MoWeFr@09 PO 05/16/17 09:00 05/16/17 08:36 Fluconazole (Diflucan) 100 mg DAILY PO 05/16/17 09:00 05/17/17 08:51 Acyclovir (Zovirax) 400 mg BID PO 05/16/17 09:00 05/17/17 08:51 Multi-Ingredient Mouthwash/Gargle (Magic Mouthwash Adult Liq) 5 ml QID SWISH-SWAL 05/16/17 13:00 05/17/17 08:52 Acetaminophen (Tylenol) 650 mg Q4H PRN PO SEE LABEL COMMENTS 05/16/17 11:30 05/16/17 13:59 Diphenhydramine HCl (Benadryl) 25 mg Q4H PRN PO SEE LABEL COMMENTS 05/16/17 11:30 05/16/17 13:59 Sodium Chloride 1,000 ml @ 75 mls/hr [id number] IV 05/16/17 13:00 05/16/17 13:00 Idarubicin HCl 24 mg/Sodium Chloride 124 ml @ 372 mls/hr Q24H IV 05/16/17 15:00 05/18/17 15:19 05/16/17 14:47 Cytarabine 200 mg/ Sodium Chloride 500 ml @ 20.833 mls/ hr Q24H IV 05/16/17 15:00 05/23/17 14:59 05/16/17 17:47 Granisetron HCl 1 mg/Dexamethasone Sodium Phosphate 20 mg/Sodium Chloride 56 ml @ 336 mls/hr Q24H IV 05/16/17 14:30 05/22/17 14:39 05/16/17 15:35 Megestrol Acetate (Megace Liq) 300 mg DAILY PO 05/16/17 14:00 05/17/17 08:52 Objective Remarks GENERAL: Pleasant middle aged male, sitting up in bed in nad SKIN: Warm and dry. bandage, left neck is c/d/i. port in place, right chest wall. +petechiae noted on legs HEAD: Normocephalic. EYES: No scleral icterus. No injection or drainage. NECK: Supple, trachea midline. CARDIOVASCULAR: Regular rate and rhythm RESPIRATORY: Breath sounds equal bilaterally. No accessory muscle use. GASTROINTESTINAL: Abdomen soft, non-tender, nondistended. EXTREMITIES: No cyanosis NEUROLOGICAL: No obvious focal deficit. Awake, alert, and oriented x3. Assessment/Plan Problem List: (1) AML (acute myeloblastic leukemia) ICD Codes: C92.00 - Acute myeloblastic leukemia, not having achieved remission Plan: --FISH and cytogenetic studies are pending. 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 --He presented with hyperleukocytosis and acute blast crises. --on Allopurinol 100mg PO BID for prophylaxis 05/15/17: Admission. given Hydrea. [facility] performed Leukapheresis bringing WBC from >100K to 44K. 05/16/17: D1. SONIA-C + Maria Del Rosario. 1 unit pRBC 05/17/17: D2. no transfusion. tolerating chemo (2) Pancytopenia ICD Codes: D61.818 - Other pancytopenia Status: Acute Plan: --transfuse him for hemoglobin of 7 or less. -- irradiated/CMV-negative blood products. --transfuse for platelet count of 10 or less. --Bactrim DS MWF, Levaquin, Diflucan 100mg daily, Acyclovir 400mg PO BID (3) Coagulopathy ICD Codes: D68.9 - Coagulation defect, unspecified Plan: --Check daily fibrinogen levels. --check his coags and LDH and haptoglobin [id number]. Assessment 72y/o male with acute myeloid leukemia with blast crisis. 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 Plan 1. continue SONIA-C + Maria Del Rosario. 2. no blood transfusion today 3. monitor blood counts, electrolytes, uric acid, coags Attending Statement The exam, history, and the medical decision-making described in the above note were completed with the assistance of the mid-level provider. I reviewed and agree with the findings presented. I attest that I had a [id number] encounter with the patient on the same day, and personally performed and documented my assessment and findings in the medical record. D#2 AML induction --high risk disease No fevers/nausea minimum discussed case with Dr. Amaya relating to FISH studies and addition of IDH1/ IDH2 and NPM-1 testing Will request to add these tests to recent BM bx continue antibiotic prophylaxis munir bianchi overnight events reviewed Problem Qualifiers (1) AML (acute myeloblastic leukemia): Qualified Codes: C92.00 - Acute myeloblastic leukemia, not having achieved remission Oma Chavez May 17, 2017 09:15 Shar Ibanez MD May 17, 2017 23:06
[2017-05-17] MEDS: GRANISETRON INJ 1 MG, DEXAMETHASONE INJ 20 MG in SODIUM CHLORIDE 0.9% INJ 50 ML IV SCH (13:19)
[2017-05-17] MEDS: IDARUBICIN IV SCH (14:05)
[2017-05-17] MEDS: SODIUM CHLORIDE 0.9% IV SCH (14:05)
[2017-05-18] VITALS (8 sets, daily range): BP systolic 107–132; BP diastolic 58–77; PULSE 64–70; RESP 17–20; TEMP 96.3–97.8; O2SAT 97–100
[2017-05-18] MEDS: ALPRAZolam 0.25 MG TAB PO PRN ×2 (03:27→08:57)
[2017-05-18] MEDS: SODIUM CHLORID 0.9% IV SCH (04:25)
[2017-05-18] MEDS: CYTARABINE IV SCH (04:25)
[2017-05-18] MEDS: SODIUM CHLOR 0.9% 1000 ML INJ 1,000 ML IV SCH ×2 (05:00→17:46)
[2017-05-18 06:04] LABS: HEMATOCRIT 22.3 % (39.0-51.0); MEAN CELL VOLUME 86.9 FL (80.0-100.0); MEAN CORPUSCULAR HGB CONC 34.5 % (32.0-36.0); RED BLOOD COUNT 2.56 MIL/MM3 (4.50-5.90); RED CELL DISTRIBUTION WIDTH 18.1 % (11.6-17.2); WHITE BLOOD COUNT 7.7 TH/MM3 (4.0-11.0)
[2017-05-18 06:15] LABS: APTT (PATIENT) 28.9 SEC (24.3-30.1); INTERNATIONAL NORMALIZED RATIO 1.2 RATIO; PROTHROMBIN TIME - PATIENT 13.4 SEC (9.8-11.6)
[2017-05-18 06:25] LABS: HEMO FLAGS AUTO DIFF
[2017-05-18 06:27] LABS: PLATELET COUNT 12 TH/MM3 (150-450)
[2017-05-18 06:45] LABS: ALT (GPT) 23 U/L (12-78); ANION GAP 7 MEQ/L (5-15); AST (GOT) 17 U/L (15-37); BLOOD UREA NITROGEN 26 MG/DL (7-18); CHLORIDE 107 MEQ/L (98-107); GLOMERULAR FILTRATION RATE 55 ML/MIN (>89); LDH SERUM 831 U/L (87-241); MAGNESIUM 2.1 MG/DL (1.5-2.5); POTASSIUM 4.2 MEQ/L (3.5-5.1); SODIUM (NA) 140 MEQ/L (136-145)
[2017-05-18 06:56] LABS: ALKALINE PHOSPHATASE 47 U/L (45-117); TOTAL BILIRUBIN ADULT 0.2 MG/DL (0.2-1.0); URIC ACID 5.5 MG/DL (2.6-7.2)
[2017-05-18] MEDS: MEGESTROL ACETATE SUSP 400 MG/10 ML CUP PO SCH (08:57)
[2017-05-18] MEDS: SULFAMETHOXAZOLE-TRIMETHOPRIM DS 800-160 MG TAB PO SCH (08:57)
[2017-05-18] MEDS: LEVOFLOXACIN 500 MG TAB PO SCH (08:57)
[2017-05-18] MEDS: NYSTAT/DIPHENHY/LIDO MOUTHWASH (Adult) 120ML SWISH-SWAL SCH ×4 (08:57→21:32)
[2017-05-18] MEDS: PANTOPRAZOLE SOD 20 MG DELAYED RELEASE TAB PO SCH (08:57)
[2017-05-18] MEDS: FLUCONAZOLE 100 MG TAB PO SCH (08:57)
[2017-05-18] MEDS: ALLOPURINOL 100 MG TAB PO SCH ×2 (08:58→21:32)
[2017-05-18] MEDS: CITALOPRAM HYDROBROMIDE 20 MG TAB PO SCH (08:58)
[2017-05-18] MEDS: ACYCLOVIR 200 MG CAP PO SCH ×2 (08:58→21:32)
[2017-05-18 09:01] LABS: BLASTS 81 % (0-0); METAMYELOCYTES 1 % (0-1); MYELOCYTES 2 % (0-0); POLYS (SEG NEUTROPHILS) 1 % (16-70); WBC DIFF SAMPLE 100
[2017-05-18 09:02] LABS: NEUTROPHIL # MANUAL DIFF 0.3 TH/MM3 (1.8-7.7); PLATELET ESTIMATE SMEAR RARE (NORMAL); PLATELET MORPHOLOGY NORMAL (NORMAL); SCAN/DIFF FINAL DIFF MANUAL
[2017-05-18] MEDS ORDERED: ALPRAZolam 0.5 MG TAB PO PRN (10:00)
--- NOTE | 2017-05-18 11:48 | PD.ONC.PN ---
Subjective Subjective Remarks Afebrile overnight. Patient resting in bed in nad. Would like me to increase his xanax to help him sleep at night as he usually gets a higher dose. No vomiting or diarrhea. Tolerating chemotherapy. Objective Data Date Time Temp Pulse Resp B/P (MAP) Pulse Ox O2 Delivery O2 Flow Rate FiO2 05/18/17 08:00 96.3 65 18 132/74 (93) 97 05/18/17 04:00 96.5 69 20 129/71 (90) 98 05/18/17 00:00 96.6 70 20 107/58 (74) 98 05/17/17 20:00 96.9 69 16 137/79 (98) 98 05/17/17 19:33 66 05/17/17 16:25 97.3 70 18 120/70 (87) 97 05/17/17 12:00 96.7 76 18 114/66 (82) 99 Result Diagram: 05/18/17 0430 05/18/17 0430 Laboratory Results Laboratory Tests Test 05/18/17 04:30 White Blood Count 7.7 TH/MM3 Red Blood Count 2.56 MIL/MM3 Hemoglobin 7.7 GM/DL Hematocrit 22.3 % Mean Corpuscular Volume 86.9 FL Mean Corpuscular Hemoglobin 30.0 PG Mean Corpuscular Hemoglobin Concent 34.5 % Red Cell Distribution Width 18.1 % Platelet Count 12 TH/MM3 Mean Platelet Volume 8.6 FL CBC Comment AUTO DIFF Differential Total Cells Counted 100 Neutrophils % (Manual) 1 % Lymphocytes % 15 % Neutrophils # (Manual) 0.3 TH/MM3 Metamyelocytes 1 % Myelocytes 2 % Differential Comment FINAL DIFF MANUAL Blastocytes 81 % Platelet Estimate RARE Platelet Morphology Comment NORMAL Prothrombin Time 13.4 SEC Prothromb Time International Ratio 1.2 RATIO Activated Partial Thromboplast Time 28.9 SEC Fibrinogen 357 mg/dL Blood Urea Nitrogen 26 MG/DL Creatinine 1.29 MG/DL Random Glucose 127 MG/DL Total Protein 6.3 GM/DL Albumin 2.9 GM/DL Calcium Level 8.4 MG/DL Phosphorus Level 4.6 MG/DL Magnesium Level 2.1 MG/DL Uric Acid 5.5 MG/DL Alkaline Phosphatase 47 U/L Aspartate Amino Transf (AST/SGOT) 17 U/L Alanine Aminotransferase (ALT/SGPT) 23 U/L Lactate Dehydrogenase 831 U/L Total Bilirubin 0.2 MG/DL Sodium Level 140 MEQ/L Potassium Level 4.2 MEQ/L Chloride Level 107 MEQ/L Carbon Dioxide Level 26.0 MEQ/L Anion Gap 7 MEQ/L Estimat Glomerular Filtration Rate 55 ML/MIN Administered Medications Medications (Trade) Dose Ordered Sig/Ivelisse Route PRN Reason Start Time Stop Time Status Last Admin Dose Admin Acetaminophen (Tylenol) 650 mg Q4H PRN PO fever>100.4 05/15/17 13:00 05/16/17 00:07 Citalopram Hydrobromide (CeleXA) 20 mg DAILY PO 05/16/17 09:00 05/18/17 08:58 Pantoprazole Sodium (Protonix) 20 mg DAILY PO 05/16/17 09:00 05/18/17 08:57 Ondansetron HCl (Zofran Inj) 4 mg Q6HR PRN IV PUSH nausea 05/15/17 14:00 05/16/17 10:30 Allopurinol (Zyloprim) 100 mg BID PO 05/15/17 21:00 05/18/17 08:58 Levofloxacin (Levaquin) 500 mg DAILY PO 05/16/17 00:30 05/18/17 08:57 Trimethoprim/ Sulfamethoxazole (Bactrim Ds 800-160 Mg) 1 tab MoWeFr@09 PO 05/16/17 09:00 05/18/17 08:57 Fluconazole (Diflucan) 100 mg DAILY PO 05/16/17 09:00 05/18/17 08:57 Acyclovir (Zovirax) 400 mg BID PO 05/16/17 09:00 05/18/17 08:58 Multi-Ingredient Mouthwash/Gargle (Magic Mouthwash Adult Liq) 5 ml QID SWISH-SWAL 05/16/17 13:00 05/18/17 11:38 Acetaminophen (Tylenol) 650 mg Q4H PRN PO SEE LABEL COMMENTS 05/16/17 11:30 05/16/17 13:59 Diphenhydramine HCl (Benadryl) 25 mg Q4H PRN PO SEE LABEL COMMENTS 05/16/17 11:30 05/16/17 13:59 Sodium Chloride 1,000 ml @ 75 mls/hr [id number] IV 05/16/17 13:00 05/16/17 13:00 Idarubicin HCl 24 mg/Sodium Chloride 124 ml @ 372 mls/hr Q24H IV 05/16/17 15:00 05/18/17 15:19 05/17/17 14:05 Cytarabine 200 mg/ Sodium Chloride 500 ml @ 20.833 mls/ hr Q24H IV 05/16/17 15:00 05/23/17 14:59 05/18/17 04:25 Granisetron HCl 1 mg/Dexamethasone Sodium Phosphate 20 mg/Sodium Chloride 56 ml @ 336 mls/hr Q24H IV 05/16/17 14:30 05/22/17 14:39 05/17/17 13:19 Megestrol Acetate (Megace Liq) 300 mg DAILY PO 05/16/17 14:00 05/18/17 08:57 Objective Remarks GENERAL: Pleasant middle aged male, upright in bed in nad. SKIN: Warm and dry. clean bandage, left neck. scattered petechiae on legs. HEAD: Normocephalic. EYES: No scleral icterus. No injection or drainage. NECK: Supple, trachea midline. CARDIOVASCULAR: Regular rate and rhythm RESPIRATORY: Breath sounds equal bilaterally. No accessory muscle use. GASTROINTESTINAL: Abdomen soft, non-tender, nondistended. EXTREMITIES: No cyanosis NEUROLOGICAL: awake and alert, normal speech. moving all extremities. Assessment/Plan Problem List: (1) AML (acute myeloblastic leukemia) ICD Codes: C92.00 - Acute myeloblastic leukemia, not having achieved remission Plan: --FISH and cytogenetic studies are pending. 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 --He presented with hyperleukocytosis and acute blast crises. --on Allopurinol 100mg PO BID for prophylaxis 05/15/17: Admission. given Hydrea. [facility] performed Leukapheresis bringing WBC from >100K to 44K. 05/16/17: D1. SONIA-C + Maria Del Rosario. 1 unit pRBC 05/17/17: D2. no transfusion. tolerating chemo 05/18/17: D3. no transfusion. (2) Pancytopenia ICD Codes: D61.818 - Other pancytopenia Status: Acute Plan: --transfuse him for hemoglobin of 7 or less. -- irradiated/CMV-negative blood products. --transfuse for platelet count of 10 or less. --Bactrim DS MWF, Levaquin, Diflucan 100mg daily, Acyclovir 400mg PO BID (3) Coagulopathy ICD Codes: D68.9 - Coagulation defect, unspecified Status: Acute Plan: --Check daily fibrinogen levels. --check his coags and LDH and haptoglobin [id number]. Assessment 72y/o male with acute myeloid leukemia with blast crisis. 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 Plan 1. continue SONIA-C + Maria Del Rosario. 2. no transfusion today 3. start Ambien PRN insomnia Attending Statement The exam, history, and the medical decision-making described in the above note were completed with the assistance of the mid-level provider. I reviewed and agree with the findings presented. I attest that I had a [id number] encounter with the patient on the same day, and personally performed and documented my assessment and findings in the medical record. B Problem Qualifiers (1) AML (acute myeloblastic leukemia): Qualified Codes: C92.00 - Acute myeloblastic leukemia, not having achieved remission Oma Chavez May 18, 2017 11:48 Shar Ibanez MD Jun 07, 2017 23:19
--- NOTE | 2017-05-18 14:37 | PD.CONS ---
HPI Service [facility] Hospitalists Consult Requested By Dr. 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 Patient had been treated with Vidaza until a few months ago when he became pancytopenic. He was then switched to Dacogen and received 1 cycle but he continued to remain pancytopenic. Patient was admitted to the hospital for induction chemotherapy for transformed acute myeloid leukemia. Per review of Dr. Ibanez's notes, patient was being considered for stem cell transplant at [facility] [[email or web address]] and was waiting for donor. Patient is currently receiving induction chemotherapy and receiving supportive care with platelets and packed red blood cell transfusion. He is on empiric antibiotics. CBC is significant for pancytopenia, hemoglobin 7.7, hematocrit 22.3, platelets 12, neutrophils 0.3, WBC 7.7. LDH 831. During this hospitalization, he had a MUGA scan which was a normal study, ejection fraction 72%Patient denies any chest pain, shortness of breath. No fever. Appetite has been very good. Has a few oral sores that are being treated with Magic mouthwash. He has scattered petechia to both legs. No active bleeding. Hospitalist services are requested for medical management. Review of Systems Constitutional: DENIES: Diaphoretic episodes, Fatigue, Fever, Weight gain, Weight loss, Chills, Dizziness, Change in appetite, Night Sweats Endocrine: DENIES: Heat/cold intolerance, Polydipsia, Polyuria, Polyphagia Eyes: DENIES: Blurred vision, Diplopia, Eye inflammation, Eye pain, Vision loss , Photosensitivity, Double Vision Ears, nose, mouth, throat: DENIES: Tinnitus, Hearing loss, Vertigo, Nasal discharge, Oral lesions, Throat pain, Hoarseness, Ear Pain, Running Nose, Epistaxis, Sinus Pain, Toothache, Odynophagia Respiratory: DENIES: Apneas, Cough, Snoring, Wheezing, Hemoptysis, Sputum production, Shortness of breath Cardiovascular: DENIES: Chest pain, Palpitations, Syncope, Dyspnea on Exertion , PND, Lower Extremity Edema, Orthopnea, Claudication Gastrointestinal: DENIES: Abdominal pain, Black stools, Bloody stools, Constipation, Diarrhea, Nausea, Vomiting, Difficulty Swallowing, Anorexia Genitourinary: DENIES: Sexual dysfunction, Urinary frequency, Urinary incontinence, Urgency, Hematuria, Dysuria, Nocturia, Penile Discharge, Testicular Pain, Testicular Swelling Musculoskeletal: DENIES: Joint pain, Muscle aches, Stiffness, Joint Swelling, Back pain, Neck pain Integumentary: DENIES: Abnormal pigmentation, Nail changes, Pruritus, Rash Hematologic/lymphatic: COMPLAINS OF: Bruising (petechia to both legs), DENIES: Lymphadenopathy Immunologic/allergic: DENIES: Eczema, Urticaria Neurologic: DENIES: Abnormal gait, Headache, Localized weakness, Paresthesias, Seizures, Speech Problems, Tremor, Poor Balance Psychiatric: DENIES: Anxiety, Confusion, Mood changes, Depression, Hallucinations, Agitation, Suicidal Ideation, Homicidal Ideation, Delusions Past Family Social History Past Medical History 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 Osteoarthritis Kidney stones Sanford's esophagus GERD Familial tremor Tinnitus Anxiety and depression History of cutaneous T-cell lymphoma treated 3 years ago Past Surgical History Lithotripsy Port-A-Cath insertion Cholecystectomy Tonsillectomy Reported Medications Reported Meds & Active Scripts Active Reported Magic Mouthwash Adult Liq (Multi-Ingredient Mouthwash/Gargle) 120 Ml Susp 5 Ml SWISH-SWAL ACHS Each 5mL contains: Nystatin 200,000units, Diphenhydramine 4.25mg, Viscous Lidocaine 10mg, Hernández syrup 0.8 mL Sulfamethoxazole-Trimethoprim 800-160 Mg Tab 1 Tab PO BID Cipro (Ciprofloxacin HCl) 250 Mg Tab 250 Mg PO BID Fluconazole 100 Mg Tab 100 Mg PO DAILY Acyclovir 400 Mg Tab 400 Mg PO BID Nystatin Liq 100,000 unit/ml Susp 5 Ml SWISH-SWAL QID Megace Liq (Megestrol Acetate) 40 Mg/Ml Susp 300 Mg PO DAILY Aciphex (Rabeprazole Sodium) 20 Mg Tab 20 Mg PO DAILY Lexapro (Escitalopram Oxalate) 20 Mg Tab 20 Mg PO DAILY Alprazolam 0.5 Mg Tab 0.5 Mg PO TID NEB PRN Allergies: Coded Allergies: No Known Allergies (Unverified , 05/10/17) Active Ordered Medications Inpatient Medications Acetaminophen (Tylenol) 650 mg Q4H PRN PO SEE LABEL COMMENTS Last administered on 05/16/17t 13:59; Start 05/16/17 at 11:30 Acyclovir (Zovirax) 400 mg BID PO Last administered on 05/18/17 08:58; Start at 09:00 Allopurinol (Zyloprim) 100 mg BID PO Last administered on 05/18/17 08:58; Start 05/15/17 at 21:00 Alprazolam (Xanax) 0.5 mg Q4H PRN PO anxiety; Start 05/18/17 at 10:00; Status Future Hold Alteplase, Recombinant (Cathflo Activase Inj) 2 mg UNSCH PRN IVF SEE LABEL COMMENTS; Start 05/15/17 at 15:00 Anticoagulant Citrate Dextose Nubia A (Acd Formula Inj) 1,000 ml ONCE ONCE OTHER ; Start 05/15/17 at 23:15; Stop 05/15/17 at 23:16; Status DC Calcium Gluconate 4 gm/Sodium Chloride 240 ml @ 90 mls/hr LOGGING SHOVEL OPERATOR IV ; Start 05/15/17 at 23:15; Stop 05/17/17 at 00:00; Status DC Citalopram Hydrobromide (CeleXA) 20 mg DAILY PO Last administered on 05/18/17 08:58; Start 05/16/17 at 09:00 Cytarabine 200 mg/ Sodium Chloride 500 ml @ 20.833 mls/ hr Q24H IV Last administered on 05/18/17 04:25; Start 05/16/17 at 15:00; Stop 05/23/17 at 14:59 Diphenhydramine HCl (Benadryl) 25 mg Q4H PRN PO SEE LABEL COMMENTS Last administered on 05/16/17 13:59; Start 05/16/17 at 11:30 Fluconazole (Diflucan) 100 mg DAILY PO Last administered on 05/18/17 08:57; Start 05/16/17 at 09:00 Granisetron HCl 1 mg/Dexamethasone Sodium Phosphate 20 mg/Sodium Chloride 56 ml @ 336 mls/hr Q24H IV Last administered on 05/18/17 15:25; Start 05/16/17 at 14: 30; Stop 05/22/17 at 14:39 Heparin Sodium (Porcine) (Heparin Central Flush) 250 units UNSCH PRN IV FLUSH SEE PROTOCOL; Start 05/15/17 at 15:00 Heparin Sodium (Porcine) (Heparin Inj) 5,000 units UNSCH PRN IV FLUSH FLUSH AFTER USING IV ACCESS; Start 05/15/17 at 23:15; Stop 05/17/17 at 00:00; Status DC Hydroxyurea (Hydrea) 500 mg ONCE ONCE PO Last administered on 05/16/17 06:04; Start 05/16/17 at 07:00; Stop 05/16/17 at 07:01; Status DC Idarubicin HCl 24 mg/Sodium Chloride 124 ml @ 372 mls/hr Q24H IV Last administered on 05/18/17 16:10; Start 05/16/17 at 15:00; Stop 05/18/17 at 15:19; Status DC Levofloxacin (Levaquin) 500 mg DAILY PO Last administered on 05/18/17 08:57; Start 05/16/17 at 00:30 Megestrol Acetate (Megace Liq) 300 mg DAILY PO Last administered on 05/18/17 08 :57; Start 05/16/17 at 14:00 Megestrol Acetate (Megace) 300 mg DAILY PO ; Start 05/16/17 at 09:00; Stop at 13:29; Status DC Multi-Ingredient Mouthwash/Gargle (Magic Mouthwash Adult Liq) 5 ml QID SWISH- SWAL Last administered on 05/18/17 11:38; Start 05/16/17 at 13:00 Ondansetron HCl (Zofran Inj) 4 mg Q6HR PRN IV PUSH nausea Last administered on 05/16/17 10:30; Start 05/15/17 at 14:00 Pantoprazole Sodium (Protonix) 20 mg DAILY PO Last administered on 05/18/17 08: 57; Start 05/16/17 at 09:00 Potassium Chloride (KCl) 40 meq ONCE ONCE PO Last administered on 05/16/17 15: 42; Start 05/16/17 at 13:00; Stop 05/16/17 at 13:01; Status DC Sodium Chloride 1,000 ml @ 75 mls/hr [id number] IV Last administered on 05/16/17 13:00; Start 05/16/17 at 13:00 Sodium Chloride (NS Flush) UNSCH PRN IVF SEE PROTOCOL; Start 05/15/17 at 18:45 Trimethoprim/ Sulfamethoxazole (Bactrim Ds 800-160 Mg) 1 tab MoWeFr@09 PO Last administered on 05/18/17t 08:57; Start 05/16/17 at 09:00 Zolpidem Tartrate (Ambien) 5 mg HS PRN PO insomnia; Start 05/18/17 at 13:15 Family History Both parents from complications of cancer. Doesn't know the type of cancer mother had. Father from complications of throat cancer. Social History Patient is . Denies tobacco use, no alcohol. Daily marijuana use for appetite stimulation. Physical Exam Vital Signs Vital Signs Date Time Temp Pulse Resp B/P (MAP) Pulse Ox O2 Delivery O2 Flow Rate FiO2 05/18/17 12:00 96.5 68 18 130/77 (94) 98 05/18/17 08:00 96.3 65 18 132/74 (93) 97 05/18/17 04:00 96.5 69 20 129/71 (90) 98 05/18/17 00:00 96.6 70 20 107/58 (74) 98 05/17/17 20:00 96.9 69 16 137/79 (98) 98 05/17/17 19:33 66 05/17/17 16:25 97.3 70 18 120/70 (87) 97 Physical Exam GENERAL: This is a well-nourished, well-developed patient, in no apparent distress. SKIN: Petechial rash noted to bilateral pretibial areas. HEAD: Atraumatic. Normocephalic. No temporal or scalp tenderness. EYES: Pupils equal round and reactive. Extraocular motions intact. No scleral icterus. No injection or drainage. ENT: Nose without bleeding, purulent drainage or septal hematoma. Throat without erythema, tonsillar hypertrophy or exudate. Uvula midline. Airway patent. NECK: Trachea midline. No JVD or lymphadenopathy. Supple, nontender, no meningeal signs. CARDIOVASCULAR: Regular rate and rhythm without murmurs, gallops, or rubs. RESPIRATORY: Clear to auscultation. Breath sounds equal bilaterally. No wheezes , rales, or rhonchi. Port-A-Cath noted to left chest wall area. GASTROINTESTINAL: Abdomen soft, non-tender, nondistended. No hepato-splenomegaly , or palpable masses. No guarding. MUSCULOSKELETAL: Extremities without clubbing, cyanosis, or edema. No joint tenderness, effusion, or edema noted. No calf tenderness. Negative Homans sign bilaterally. NEUROLOGICAL: Awake, alert oriented 3. No Focal deficits. Laboratory Laboratory Tests Test 05/18/17 04:30 White Blood Count 7.7 Red Blood Count 2.56 Hemoglobin 7.7 Hematocrit 22.3 Mean Corpuscular Volume 86.9 Mean Corpuscular Hemoglobin 30.0 Mean Corpuscular Hemoglobin Concent 34.5 Red Cell Distribution Width 18.1 Platelet Count 12 Mean Platelet Volume 8.6 CBC Comment AUTO DIFF Differential Total Cells Counted 100 Neutrophils % (Manual) 1 Lymphocytes % 15 Neutrophils # (Manual) 0.3 Metamyelocytes 1 Myelocytes 2 Differential Comment FINAL DIFF MANUAL Blastocytes 81 Platelet Estimate RARE Platelet Morphology Comment NORMAL Prothrombin Time 13.4 Prothromb Time International Ratio 1.2 Activated Partial Thromboplast Time 28.9 Fibrinogen 357 Blood Urea Nitrogen 26 Creatinine 1.29 Random Glucose 127 Total Protein 6.3 Albumin 2.9 Calcium Level 8.4 Phosphorus Level 4.6 Magnesium Level 2.1 Uric Acid 5.5 Alkaline Phosphatase 47 Aspartate Amino Transf (AST/SGOT) 17 Alanine Aminotransferase (ALT/SGPT) 23 Lactate Dehydrogenase 831 Total Bilirubin 0.2 Sodium Level 140 Potassium Level 4.2 Chloride Level 107 Carbon Dioxide Level 26.0 Anion Gap 7 Estimat Glomerular Filtration Rate 55 Result Diagram: 05/18/170 05/18/17 0430 Imaging Last Impressions Chest X-Ray 05/16/17 0700 Signed Impressions: Service Date/Time: Tuesday, May 16, 2017 07:41 - CONCLUSION: The lungs are clear. No evidence of pneumothorax. Ethan Sabillon MD [facility] 05/15/17 0000 Signed Impressions: Service Date/Time: Monday, May 15, 2017 14:57 - CONCLUSION: Normal study. Ejection fraction 72%% Man Burden MD Catheter Placement X-Ray 05/15/17 0000 Signed Impressions: Service Date/Time: Monday, May 15, 2017 17:46 - CONCLUSION: Uncomplicated line placement as above. Man Burden MD A/P Diagnosis: (1) AML (acute myeloblastic leukemia) ICD Codes: C92.00 - Acute myeloblastic leukemia, not having achieved remission (2) Pancytopenia ICD Codes: D61.818 - Other pancytopenia Status: Acute (3) Coagulopathy ICD Codes: D68.9 - Coagulation defect, unspecified Status: Acute (4) Anxiety and depression ICD Codes: F41.8 - Other specified anxiety disorders Status: Chronic Assessment and Plan Thank you for this consultation, we will assist with medical management. 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 Admitted for chemotherapy induction. Acute myeloblastic leukemia Pancytopenia -Dr. Ibanez managing -Continue to monitor CBC and transfusion of blood products as needed -Continue with Bactrim Levaquin Diflucan and acyclovir Coagulopathy -Monitor for bleeding -Daily fibrinogen levels per oncology GERD Sanford esophagus -Continue Protonix 20 mg by mouth daily Anxiety and depression -Continue with Celexa 20 mg by mouth daily No SCDs or anticoagulation recommended at this time due to thrombocytopenia Continue Protonix for GI prophylaxis Plan of care discussed with the patient and his , RN, attending. Further management of the patient will be dependent on the hospital course Patient was seen by myself and Dr. Santos, this consultation is written on his behalf Problem Qualifiers (1) AML (acute myeloblastic leukemia): Qualified Codes: C92.00 - Acute myeloblastic leukemia, not having achieved remission Viola Sanon May 18, 2017 14:37
[2017-05-18] MEDS: GRANISETRON INJ 1 MG, DEXAMETHASONE INJ 20 MG in SODIUM CHLORIDE 0.9% INJ 50 ML IV SCH (15:25)
[2017-05-18] MEDS: SODIUM CHLORIDE 0.9% IV SCH (16:10)
[2017-05-18] MEDS: IDARUBICIN IV SCH (16:10)
[2017-05-18] MEDS: ZOLPIDEM TARTRATE 5 MG TAB PO PRN (21:31)
[2017-05-19] VITALS (8 sets, daily range): BP systolic 117–141; BP diastolic 66–84; PULSE 64–87; RESP 18–20; TEMP 96.5–97.9; O2SAT 94–99
[2017-05-19 05:46] LABS: ALT (GPT) 25 U/L (12-78); ANION GAP 7 MEQ/L (5-15); APTT (PATIENT) 29.9 SEC (24.3-30.1); AST (GOT) 15 U/L (15-37); BICARBONATE 25.1 MEQ/L (21.0-32.0); BLOOD UREA NITROGEN 26 MG/DL (7-18); CHLORIDE 105 MEQ/L (98-107); GLOMERULAR FILTRATION RATE 70 ML/MIN (>89); INTERNATIONAL NORMALIZED RATIO 1.2 RATIO; MAGNESIUM 2.4 MG/DL (1.5-2.5); POTASSIUM 4.7 MEQ/L (3.5-5.1); SODIUM (NA) 137 MEQ/L (136-145); URIC ACID 5.3 MG/DL (2.6-7.2)
[2017-05-19 05:50] LABS: ALKALINE PHOSPHATASE 42 U/L (45-117); LDH SERUM 803 U/L (87-241); TOTAL BILIRUBIN ADULT 0.5 MG/DL (0.2-1.0)
[2017-05-19] MEDS: CYTARABINE IV SCH (07:32)
[2017-05-19] MEDS: SODIUM CHLORID 0.9% IV SCH (07:32)
[2017-05-19] MEDS: LEVOFLOXACIN 500 MG TAB PO SCH (08:14)
[2017-05-19] MEDS: PANTOPRAZOLE SOD 20 MG DELAYED RELEASE TAB PO SCH (08:14)
[2017-05-19] MEDS: ACYCLOVIR 200 MG CAP PO SCH ×2 (08:14→22:31)
[2017-05-19] MEDS: CITALOPRAM HYDROBROMIDE 20 MG TAB PO SCH (08:14)
[2017-05-19] MEDS: FLUCONAZOLE 100 MG TAB PO SCH (08:15)
[2017-05-19] MEDS: MEGESTROL ACETATE SUSP 400 MG/10 ML CUP PO SCH (08:15)
[2017-05-19] MEDS: ALLOPURINOL 100 MG TAB PO SCH ×2 (08:15→22:31)
[2017-05-19] MEDS: NYSTAT/DIPHENHY/LIDO MOUTHWASH (Adult) 120ML SWISH-SWAL SCH ×4 (08:16→22:32)
--- NOTE | 2017-05-19 10:01 | PD.ONC.PN ---
Subjective Subjective Remarks Afebrile "I feel really good I have no complaints " Tolerating chemotherapy Objective Data Date Time Temp Pulse Resp B/P (MAP) Pulse Ox O2 Delivery O2 Flow Rate FiO2 05/19/17 07:50 96.5 66 20 128/73 (91) 97 05/19/17 05:29 97.2 64 19 130/84 (99) 94 05/19/17 04:00 67 05/19/17 01:03 97.9 68 18 126/67 (86) 98 05/18/17 21:25 97.5 64 17 110/73 (85) 98 05/18/17 20:15 64 05/18/17 19:31 67 05/18/17 16:00 97.8 65 18 116/73 (87) 100 05/18/17 12:00 96.5 68 18 130/77 (94) 98 Result Diagram: 05/18/17 0430 05/19/17 0320 Laboratory Results Laboratory Tests Test 05/19/17 03:20 Haptoglobin 285 MG/DL Prothrombin Time 13.0 SEC Prothromb Time International Ratio 1.2 RATIO Activated Partial Thromboplast Time 29.9 SEC Fibrinogen 392 mg/dL Blood Urea Nitrogen 26 MG/DL Creatinine 1.05 MG/DL Random Glucose 127 MG/DL Total Protein 6.4 GM/DL Albumin 2.8 GM/DL Calcium Level 8.6 MG/DL Phosphorus Level 4.6 MG/DL Magnesium Level 2.4 MG/DL Uric Acid 5.3 MG/DL Alkaline Phosphatase 42 U/L Aspartate Amino Transf (AST/SGOT) 15 U/L Alanine Aminotransferase (ALT/SGPT) 25 U/L Lactate Dehydrogenase 803 U/L Total Bilirubin 0.5 MG/DL Sodium Level 137 MEQ/L Potassium Level 4.7 MEQ/L Chloride Level 105 MEQ/L Carbon Dioxide Level 25.1 MEQ/L Anion Gap 7 MEQ/L Estimat Glomerular Filtration Rate 70 ML/MIN Administered Medications Medications (Trade) Dose Ordered Sig/Ivelisse Route PRN Reason Start Time Stop Time Status Last Admin Dose Admin Acetaminophen (Tylenol) 650 mg Q4H PRN PO fever>100.4 05/15/17 13:00 05/16/17 00:07 Citalopram Hydrobromide (CeleXA) 20 mg DAILY PO 05/16/17 09:00 05/19/17 08:14 Pantoprazole Sodium (Protonix) 20 mg DAILY PO 05/16/17 09:00 05/19/17 08:14 Ondansetron HCl (Zofran Inj) 4 mg Q6HR PRN IV PUSH nausea 05/15/17 14:00 05/16/17 10:30 Allopurinol (Zyloprim) 100 mg BID PO 05/15/17 21:00 05/19/17 08:15 Levofloxacin (Levaquin) 500 mg DAILY PO 05/16/17 00:30 05/19/17 08:14 Trimethoprim/ Sulfamethoxazole (Bactrim Ds 800-160 Mg) 1 tab MoWeFr@09 PO 05/16/17 09:00 05/18/17 08:57 Fluconazole (Diflucan) 100 mg DAILY PO 05/16/17 09:00 05/19/17 08:15 Acyclovir (Zovirax) 400 mg BID PO 05/16/17 09:00 05/19/17 08:14 Multi-Ingredient Mouthwash/Gargle (Magic Mouthwash Adult Liq) 5 ml QID SWISH-SWAL 05/16/17 13:00 05/19/17 08:16 Acetaminophen (Tylenol) 650 mg Q4H PRN PO SEE LABEL COMMENTS 05/16/17 11:30 05/16/17 13:59 Diphenhydramine HCl (Benadryl) 25 mg Q4H PRN PO SEE LABEL COMMENTS 05/16/17 11:30 05/16/17 13:59 Sodium Chloride 1,000 ml @ 75 mls/hr [id number] IV 05/16/17 13:00 05/16/17 13:00 Cytarabine 200 mg/ Sodium Chloride 500 ml @ 20.833 mls/ hr Q24H IV 05/16/17 15:00 05/23/17 14:59 05/19/17 07:32 Granisetron HCl 1 mg/Dexamethasone Sodium Phosphate 20 mg/Sodium Chloride 56 ml @ 336 mls/hr Q24H IV 05/16/17 14:30 05/22/17 14:39 05/18/17 15:25 Megestrol Acetate (Megace Liq) 300 mg DAILY PO 05/16/17 14:00 05/19/17 08:15 Zolpidem Tartrate (Ambien) 5 mg HS PRN PO insomnia 05/18/17 13:15 05/18/17 21:31 Objective Remarks GENERAL: Pleasant middle aged male, upright in bed in nad. SKIN: Warm and dry. clean bandage, left neck. Scattered petechiae on legs. HEAD: Normocephalic. EYES: No scleral icterus. No injection or drainage. NECK: Supple, trachea midline. CARDIOVASCULAR: Regular rate and rhythm RESPIRATORY: Breath sounds equal bilaterally. No accessory muscle use. GASTROINTESTINAL: Abdomen soft, non-tender, nondistended. EXTREMITIES: No cyanosis NEUROLOGICAL: Awake and alert, normal speech. moving all extremities. Assessment/Plan Problem List: (1) AML (acute myeloblastic leukemia) ICD Codes: C92.00 - Acute myeloblastic leukemia, not having achieved remission Plan: 05/15/17: Admission. given Hydrea. [facility] performed Leukapheresis bringing WBC from >100K to 44K. 05/16/17: D1. SONIA-C + Maria Del Rosario. 1 unit pRBC 05/17/17: D2. no transfusion. tolerating chemo 05/18/17: D3. no transfusion. 05/19/17: D4. 1 unit platelets today. No evidence of tumor lysis. Pt finished idarubicin yesterday. Continue SONIA-C. --FISH and cytogenetic studies are pending. 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 --He presented with hyperleukocytosis and acute blast crises. --on Allopurinol 100mg PO BID for prophylaxis (2) Pancytopenia ICD Codes: D61.818 - Other pancytopenia Status: Acute Plan: --transfuse him for hemoglobin of 7 or less. -- irradiated/CMV-negative blood products. --transfuse for platelet count of 10 or less. --Bactrim DS MWF, Levaquin, Diflucan 100mg daily, Acyclovir 400mg PO BID (3) Coagulopathy ICD Codes: D68.9 - Coagulation defect, unspecified Status: Acute Plan: --Check daily fibrinogen levels. --check his coags and LDH and haptoglobin [id number]. Assessment 72y/o male with acute myeloid leukemia with blast crisis. 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 Attending Statement no N/V Tolerating chemo well No Fever Plat Tx today. The exam, history, and the medical decision-making described in the above note were completed with the assistance of the mid-level provider. I reviewed and agree with the findings presented. I attest that I had a [id number] encounter with the patient on the same day, and personally performed and documented my assessment and findings in the medical record. Problem Qualifiers (1) AML (acute myeloblastic leukemia): Qualified Codes: C92.00 - Acute myeloblastic leukemia, not having achieved remission Arin Castillo May 19, 2017 10:01 Lainey Anaya MD May 19, 2017 18:42
[2017-05-19 10:55] LABS: HEMATOCRIT 22.3 % (39.0-51.0); MEAN CELL VOLUME 85.9 FL (80.0-100.0); MEAN CORPUSCULAR HEMOGLOBIN 29.2 PG (27.0-34.0); RED CELL DISTRIBUTION WIDTH 18.5 % (11.6-17.2); WHITE BLOOD COUNT 0.3 TH/MM3 (4.0-11.0)
[2017-05-19 10:59] LABS: HEMO FLAGS AUTO DIFF
[2017-05-19 11:01] LABS: PLATELET COUNT 5 TH/MM3 (150-450)
[2017-05-19 11:52] LABS: BLASTS 48 % (0-0); PLATELET ESTIMATE SMEAR RARE (NORMAL); PLATELET MORPHOLOGY NORMAL (NORMAL); SCAN/DIFF FINAL DIFF MANUAL; WBC DIFF SAMPLE 50
[2017-05-19 11:53] LABS: ROULEAUX PRESENT (NORMAL)
[2017-05-19] MEDS ORDERED: ACETAMINOPHEN 325 MG TAB PO PRN (12:45)
[2017-05-19] MEDS ORDERED: diphenhydrAMINE HCL 25 MG CAP PO PRN (12:45)
[2017-05-19] MEDS ORDERED: SODIUM CHLOR 0.9% 250 ML INJ 250 ML IV ONE (12:45)
--- NOTE | 2017-05-19 14:38 | HHI.PR ---
Subjective Subjective Remarks Resting in the bed watching TV Awake, alert, talkative Afebrile Denies any acute pain or shortness of breath Left jugular hemodialysis type catheter, non-tunneled (Marcie Summers) Review of Systems Constitutional Constitutional: Weakness (generalized mild) Constitutional Remarks 10 point ROS reviewed any positives noted (Marcie Summers) Musculoskeletal MS: Weakness (minimal generalized) (Marcie Summers) Psychiatric Psychiatric: Normal Mood (Marcie Summers) Vitals/Results Vital Signs Vital Signs Date Time Temp Pulse Resp B/P (MAP) Pulse Ox O2 Delivery O2 Flow Rate FiO2 05/19/17 07:50 96.5 66 20 128/73 (91) 97 05/19/17 05:29 97.2 64 19 130/84 (99) 94 05/19/17 04:00 67 05/19/17 01:03 97.9 68 18 126/67 (86) 98 05/18/17 21:25 97.5 64 17 110/73 (85) 98 05/18/17 20:15 64 05/18/17 19:31 67 05/18/17 16:00 97.8 65 18 116/73 (87) 100 (Marcie Summers) CBC/BMP: 05/19/17 1040 05/19/17 0320 Lab Results Laboratory Tests Test 05/19/17 03:20 05/19/17 10:40 Haptoglobin 285 MG/DL Prothrombin Time 13.0 SEC Prothromb Time International Ratio 1.2 RATIO Activated Partial Thromboplast Time 29.9 SEC Fibrinogen 392 mg/dL Blood Urea Nitrogen 26 MG/DL Creatinine 1.05 MG/DL Random Glucose 127 MG/DL Total Protein 6.4 GM/DL Albumin 2.8 GM/DL Calcium Level 8.6 MG/DL Phosphorus Level 4.6 MG/DL Magnesium Level 2.4 MG/DL Uric Acid 5.3 MG/DL Alkaline Phosphatase 42 U/L Aspartate Amino Transf (AST/SGOT) 15 U/L Alanine Aminotransferase (ALT/SGPT) 25 U/L Lactate Dehydrogenase 803 U/L Total Bilirubin 0.5 MG/DL Sodium Level 137 MEQ/L Potassium Level 4.7 MEQ/L Chloride Level 105 MEQ/L Carbon Dioxide Level 25.1 MEQ/L Anion Gap 7 MEQ/L Estimat Glomerular Filtration Rate 70 ML/MIN White Blood Count 0.3 TH/MM3 Red Blood Count 2.60 MIL/MM3 Hemoglobin 7.6 GM/DL Hematocrit 22.3 % Mean Corpuscular Volume 85.9 FL Mean Corpuscular Hemoglobin 29.2 PG Mean Corpuscular Hemoglobin Concent 34.0 % Red Cell Distribution Width 18.5 % Platelet Count 5 TH/MM3 Mean Platelet Volume 9.6 FL CBC Comment AUTO DIFF Differential Total Cells Counted 50 Lymphocytes % 46 % Monocytes % 6 % Neutrophils # (Manual) 0.0 TH/MM3 Differential Comment FINAL DIFF MANUAL Blastocytes 48 % Platelet Estimate RARE Platelet Morphology Comment NORMAL Rouleau PRESENT Imaging Remarks Last Impressions Chest X-Ray 05/16/17 0700 Signed Impressions: Service Date/Time: Tuesday, May 16, 2017 07:41 - CONCLUSION: The lungs are clear. No evidence of pneumothorax. Ethan Sabillon MD [facility] 05/15/17 0000 Signed Impressions: Service Date/Time: Monday, May 15, 2017 14:57 - CONCLUSION: Normal study. Ejection fraction 72%% Man Burden MD Catheter Placement X-Ray 05/15/17 0000 Signed Impressions: Service Date/Time: Monday, May 15, 2017 17:46 - CONCLUSION: Uncomplicated line placement as above. Man Burden MD Current Medications Administered Medications Medications (Trade) Dose Ordered Sig/Ivelisse Route PRN Reason Start Time Stop Time Status Last Admin Dose Admin Acetaminophen (Tylenol) 650 mg Q4H PRN PO fever>100.4 05/15/17 13:00 05/16/17 00:07 Citalopram Hydrobromide (CeleXA) 20 mg DAILY PO 05/16/17 09:00 05/19/17 08:14 Pantoprazole Sodium (Protonix) 20 mg DAILY PO 05/16/17 09:00 05/19/17 08:14 Ondansetron HCl (Zofran Inj) 4 mg Q6HR PRN IV PUSH nausea 05/15/17 14:00 05/16/17 10:30 Allopurinol (Zyloprim) 100 mg BID PO 05/15/17 21:00 05/19/17 08:15 Levofloxacin (Levaquin) 500 mg DAILY PO 05/16/17 00:30 05/19/17 08:14 Trimethoprim/ Sulfamethoxazole (Bactrim Ds 800-160 Mg) 1 tab MoWeFr@09 PO 05/16/17 09:00 05/18/17 08:57 Fluconazole (Diflucan) 100 mg DAILY PO 05/16/17 09:00 05/19/17 08:15 Acyclovir (Zovirax) 400 mg BID PO 05/16/17 09:00 05/19/17 08:14 Multi-Ingredient Mouthwash/Gargle (Magic Mouthwash Adult Liq) 5 ml QID SWISH-SWAL 05/16/17 13:00 05/19/17 12:39 Acetaminophen (Tylenol) 650 mg Q4H PRN PO SEE LABEL COMMENTS 05/16/17 11:30 05/16/17 13:59 Diphenhydramine HCl (Benadryl) 25 mg Q4H PRN PO SEE LABEL COMMENTS 05/16/17 11:30 05/16/17 13:59 Sodium Chloride 1,000 ml @ 75 mls/hr [id number] IV 05/16/17 13:00 05/16/17 13:00 Cytarabine 200 mg/ Sodium Chloride 500 ml @ 20.833 mls/ hr Q24H IV 05/16/17 15:00 05/23/17 14:59 05/19/17 07:32 Granisetron HCl 1 mg/Dexamethasone Sodium Phosphate 20 mg/Sodium Chloride 56 ml @ 336 mls/hr Q24H IV 05/16/17 14:30 05/22/17 14:39 05/18/17 15:25 Megestrol Acetate (Megace Liq) 300 mg DAILY PO 05/16/17 14:00 05/19/17 08:15 Zolpidem Tartrate (Ambien) 5 mg HS PRN PO insomnia 05/18/17 13:15 05/18/17 21:31 (Marcie Summers) Physical Exam General General Appearance: Well Developed, Well Nourished, Comfortable, Pale (mild) (Marcie Summers) Eyes Eye Exam: Pupils Reactive (Marcie Summers) Ears & Nose Ears & Nose Exam: Nasal Mucosa [place] (Marcie Summers) Throat Throat Exam: Oral Mucosa [place] & Moist (pale) (Marcie Summers) Neck Neck Exam: Neck Supple (Marcie Summers) Pulmonary Resp Exam: Clear Bilaterally, No Distress (Marcie Summers) Cardiology CV Exam: Regular (Marcie Summers) Gastrointestinal/Abdomen GI Exam: Soft, Non-Tender, Bowel Sounds Present (Marcie Summers) Hematologic/Lymphatic Heme Remarks No rash noted (Marcie Summers) Musculoskeletal MS Exam: Joints Intact (Marcie Summers) Integumentary Skin Exam: Warm, Dry (Marcie Summers) Extremeties Extremities Exam: No Edema (Marcie Summers) Neurologic Neuro Exam: Alert, Awake, Oriented, Speech Clear, Moving All Extremities (Marcie Summers) PUD Prophylasis PUD Remarks PUD prophylaxis (Marcie Summers) Assessment/Plan Assessment/Plan Vital signs reviewed, afebrile, BP normal trends Labs reviewed, anemic 7.6, platelets 0.5 low, WBC count 0.3, chemotherapy in process IV Check labs in the morning Acute myeloblastic leukemia with pancytopenia, 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 Appreciate oncology input and plan of care, non-tunneled, hemodialysis type catheter placed left jugular per IR, tolerated well Currently receiving chemotherapy IV, monitor labs and symptom management No active bleeding noted, monitor Thrombocytopenia receiving platelet pheresis today Currently complaining of no acute pain, mild tired sensation, appears to be in good spirits and very hopeful for remission GERD with [place]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 Santos, seen on his behalf Discussed with nurse (Marcie Summers) Assessment/Plan pt seen and examined as above labs reviewed meds reviewed dw pt plan of care dw micro[employer] bi consultant for plt replacement today (Panja,Jawed A. Marcie Flores May 19, 2017 14:38 Gold Santos MD May 19, 2017 16:16
[2017-05-19] MEDS: ACETAMINOPHEN 325 MG TAB PO PRN (15:00)
[2017-05-19] MEDS: diphenhydrAMINE HCL 25 MG CAP PO PRN (15:00)
[2017-05-19] MEDS: GRANISETRON INJ 1 MG, DEXAMETHASONE INJ 20 MG in SODIUM CHLORIDE 0.9% INJ 50 ML IV SCH (16:00)
[2017-05-19] MEDS: SODIUM CHLOR 0.9% 1000 ML INJ 1,000 ML IV SCH (21:00)
[2017-05-19] MEDS: ZOLPIDEM TARTRATE 5 MG TAB PO PRN (22:41)
[2017-05-20] VITALS (11 sets, daily range): BP systolic 100–147; BP diastolic 64–81; PULSE 64–99; RESP 16–24; TEMP 96.7–98.1; O2SAT 97–99
[2017-05-20 06:47] LABS: APTT (PATIENT) 28.7 SEC (24.3-30.1); INTERNATIONAL NORMALIZED RATIO 1.2 RATIO; PROTHROMBIN TIME - PATIENT 13.1 SEC (9.8-11.6)
[2017-05-20 06:55] LABS: MEAN CELL VOLUME 85.7 FL (80.0-100.0); MEAN CORPUSCULAR HEMOGLOBIN 29.1 PG (27.0-34.0); RED BLOOD COUNT 2.17 MIL/MM3 (4.50-5.90); RED CELL DISTRIBUTION WIDTH 17.7 % (11.6-17.2); WHITE BLOOD COUNT 0.1 TH/MM3 (4.0-11.0)
[2017-05-20 07:19] LABS: HEMO FLAGS AUTO DIFF
[2017-05-20 07:27] LABS: HEMATOCRIT 18.6 % (39.0-51.0); PLATELET COUNT 7 TH/MM3 (150-450)
[2017-05-20 07:32] LABS: ALKALINE PHOSPHATASE 42 U/L (45-117); ALT (GPT) 98 U/L (12-78); ANION GAP 8 MEQ/L (5-15); AST (GOT) 58 U/L (15-37); BICARBONATE 24.3 MEQ/L (21.0-32.0); BLOOD UREA NITROGEN 32 MG/DL (7-18); CHLORIDE 106 MEQ/L (98-107); GLOMERULAR FILTRATION RATE 71 ML/MIN (>89); LDH SERUM 593 U/L (87-241); MAGNESIUM 2.6 MG/DL (1.5-2.5); POTASSIUM 4.7 MEQ/L (3.5-5.1); SODIUM (NA) 138 MEQ/L (136-145); TOTAL BILIRUBIN ADULT 0.8 MG/DL (0.2-1.0); URIC ACID 5.5 MG/DL (2.6-7.2)
[2017-05-20] MEDS ORDERED: SODIUM CHLOR 0.9% 250 ML INJ 250 ML IV ONE (08:45)
[2017-05-20] MEDS ORDERED: FUROSEMIDE 20 MG/2 ML VIAL IV ONE (08:45)
[2017-05-20] MEDS: NYSTAT/DIPHENHY/LIDO MOUTHWASH (Adult) 120ML SWISH-SWAL SCH ×4 (09:00→19:47)
[2017-05-20] MEDS: ACYCLOVIR 200 MG CAP PO SCH ×2 (09:23→19:46)
[2017-05-20] MEDS: PANTOPRAZOLE SOD 20 MG DELAYED RELEASE TAB PO SCH (09:25)
[2017-05-20] MEDS: ALLOPURINOL 100 MG TAB PO SCH ×2 (09:25→19:46)
[2017-05-20] MEDS: LEVOFLOXACIN 500 MG TAB PO SCH (09:25)
[2017-05-20] MEDS: FLUCONAZOLE 100 MG TAB PO SCH (09:25)
[2017-05-20] MEDS: MEGESTROL ACETATE SUSP 400 MG/10 ML CUP PO SCH (09:26)
[2017-05-20] MEDS: CITALOPRAM HYDROBROMIDE 20 MG TAB PO SCH (09:31)
[2017-05-20] MEDS: SODIUM CHLORID 0.9% IV SCH (09:52)
[2017-05-20] MEDS: CYTARABINE IV SCH (09:52)
[2017-05-20] MEDS ORDERED: ALPRAZolam 0.5 MG TAB PO PRN (10:00)
--- NOTE | 2017-05-20 10:07 | PD.ONC.PN ---
Subjective Subjective Remarks Afebrile Pt anxious, reports that he hasn't slept in the last 2 nights and the Ambien isn 't working. Reports he normally takes 1mg Xanax to sleep at night. No bleeding Objective Data Date Time Temp Pulse Resp B/P (MAP) Pulse Ox O2 Delivery O2 Flow Rate FiO2 05/20/17 07:50 97.4 77 20 117/73 (88) 98 05/20/17 06:00 67 05/20/17 04:00 97.8 70 20 129/81 (97) 98 05/20/17 00:00 98.0 88 24 147/81 (103) 98 05/20/17 00:00 69 05/19/17 20:00 67 05/19/17 20:00 96.7 73 20 125/77 (93) 99 05/19/17 15:50 97.4 87 20 117/69 (85) 98 05/19/17 15:25 97.0 72 18 121/76 99 05/19/17 11:50 97.1 78 20 141/66 (91) 98 05/20/17 05/20/17 05/20/17 07:00 15:00 23:00 Intake Total 720 ml Balance 720 ml Result Diagram: 05/20/17 0530 05/20/17 0530 Laboratory Results Laboratory Tests Test 05/19/17 10:40 05/20/17 05:30 White Blood Count 0.3 TH/MM3 0.1 TH/MM3 Red Blood Count 2.60 MIL/MM3 2.17 MIL/MM3 Hemoglobin 7.6 GM/DL 6.3 GM/DL Hematocrit 22.3 % 18.6 % Mean Corpuscular Volume 85.9 FL 85.7 FL Mean Corpuscular Hemoglobin 29.2 PG 29.1 PG Mean Corpuscular Hemoglobin Concent 34.0 % 34.0 % Red Cell Distribution Width 18.5 % 17.7 % Platelet Count 5 TH/MM3 7 TH/MM3 Mean Platelet Volume 9.6 FL 7.7 FL CBC Comment AUTO DIFF AUTO DIFF Differential Total Cells Counted 50 Lymphocytes % 46 % Monocytes % 6 % Neutrophils # (Manual) 0.0 TH/MM3 Differential Comment FINAL DIFF MANUAL Blastocytes 48 % Platelet Estimate RARE Platelet Morphology Comment NORMAL Rouleau PRESENT Prothrombin Time 13.1 SEC Prothromb Time International Ratio 1.2 RATIO Activated Partial Thromboplast Time 28.7 SEC Fibrinogen 297 mg/dL Blood Urea Nitrogen 32 MG/DL Creatinine 1.04 MG/DL Random Glucose 127 MG/DL Total Protein 6.0 GM/DL Albumin 2.8 GM/DL Calcium Level 7.9 MG/DL Phosphorus Level 4.3 MG/DL Magnesium Level 2.6 MG/DL Uric Acid 5.5 MG/DL Alkaline Phosphatase 42 U/L Aspartate Amino Transf (AST/SGOT) 58 U/L Alanine Aminotransferase (ALT/SGPT) 98 U/L Lactate Dehydrogenase 593 U/L Total Bilirubin 0.8 MG/DL Sodium Level 138 MEQ/L Potassium Level 4.7 MEQ/L Chloride Level 106 MEQ/L Carbon Dioxide Level 24.3 MEQ/L Anion Gap 8 MEQ/L Estimat Glomerular Filtration Rate 71 ML/MIN Administered Medications Medications (Trade) Dose Ordered Sig/Ivelisse Route PRN Reason Start Time Stop Time Status Last Admin Dose Admin Acetaminophen (Tylenol) 650 mg Q4H PRN PO fever>100.4 05/15/17 13:00 05/19/17 15:00 Citalopram Hydrobromide (CeleXA) 20 mg DAILY PO 05/16/17 09:00 05/20/17 09:31 Pantoprazole Sodium (Protonix) 20 mg DAILY PO 05/16/17 09:00 05/20/17 09:25 Ondansetron HCl (Zofran Inj) 4 mg Q6HR PRN IV PUSH nausea 05/15/17 14:00 05/16/17 10:30 Allopurinol (Zyloprim) 100 mg BID PO 05/15/17 21:00 05/20/17 09:25 Levofloxacin (Levaquin) 500 mg DAILY PO 05/16/17 00:30 05/20/17 09:25 Trimethoprim/ Sulfamethoxazole (Bactrim Ds 800-160 Mg) 1 tab MoWeFr@09 PO 05/16/17 09:00 05/18/17 08:57 Fluconazole (Diflucan) 100 mg DAILY PO 05/16/17 09:00 05/20/17 09:25 Acyclovir (Zovirax) 400 mg BID PO 05/16/17 09:00 05/20/17 09:23 Multi-Ingredient Mouthwash/Gargle (Magic Mouthwash Adult Liq) 5 ml QID SWISH-SWAL 05/16/17 13:00 05/20/17 09:00 Acetaminophen (Tylenol) 650 mg Q4H PRN PO SEE LABEL COMMENTS 05/16/17 11:30 05/16/17 13:59 Sodium Chloride 1,000 ml @ 75 mls/hr [id number] IV 05/16/17 13:00 05/16/17 13:00 Cytarabine 200 mg/ Sodium Chloride 500 ml @ 20.833 mls/ hr Q24H IV 05/16/17 15:00 05/23/17 14:59 05/20/17 09:52 Granisetron HCl 1 mg/Dexamethasone Sodium Phosphate 20 mg/Sodium Chloride 56 ml @ 336 mls/hr Q24H IV 05/16/17 14:30 05/22/17 14:39 05/19/17 16:00 Megestrol Acetate (Megace Liq) 300 mg DAILY PO 05/16/17 14:00 05/20/17 09:26 Zolpidem Tartrate (Ambien) 5 mg HS PRN PO insomnia 05/18/17 13:15 05/19/17 22:41 Objective Remarks GENERAL: Pleasant middle aged male, upright in bed in nad. SKIN: Warm and dry. Scattered petechiae on legs. HEAD: Normocephalic. EYES: No scleral icterus. No injection or drainage. NECK: Supple, trachea midline. CARDIOVASCULAR: Regular rate and rhythm RESPIRATORY: Breath sounds equal bilaterally. No accessory muscle use. GASTROINTESTINAL: Abdomen soft, non-tender, nondistended. EXTREMITIES: No cyanosis NEUROLOGICAL: Awake and alert, normal speech. moving all extremities. Assessment/Plan Problem List: (1) AML (acute myeloblastic leukemia) ICD Codes: C92.00 - Acute myeloblastic leukemia, not having achieved remission Plan: 05/15/17: Admission. given Hydrea. [facility] performed Leukapheresis bringing WBC from >100K to 44K. 05/16/17: D1. SONIA-C + [place]. 1 unit pRBC 05/17/17: D2. no transfusion. tolerating chemo 05/18/17: D3. no transfusion. 05/19/17: D4. 1 unit platelets today. No evidence of tumor lysis. Pt finished idarubicin yesterday. Continue SONIA-C. 05/20/17 D5: 1 unit platelets, 2 units PRBC's today. Will add on xanax prn and 1mg xanax at HS scheduled. Continue chemo, continue to monitor blood counts. --FISH and cytogenetic studies are pending. 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 --He presented with hyperleukocytosis and acute blast crises. --on Allopurinol 100mg PO BID for prophylaxis (2) Pancytopenia ICD Codes: D61.818 - Other pancytopenia Status: Acute Plan: --transfuse him for hemoglobin of 7 or less. -- irradiated/CMV-negative blood products. --transfuse for platelet count of 10 or less. --Bactrim DS MWF, Levaquin, Diflucan 100mg daily, Acyclovir 400mg PO BID (3) Coagulopathy ICD Codes: D68.9 - Coagulation defect, unspecified Status: Acute Plan: --Check daily fibrinogen levels. --check his coags and LDH and haptoglobin [id number]. Assessment 72y/o male with acute myeloid leukemia with blast crisis. 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 Attending Statement c/o insomnia and severe anxiety. at bedside. Pt takes Xanax 1 mg at night for sleep which works for him. D/C ambien. Start Xanax 1 mg QHS. and xanax 0.5 mg Po TID prn anxiety during day time. continue induction chemo. Tolerating well. d/w and RN The exam, history, and the medical decision-making described in the above note were completed with the assistance of the mid-level provider. I reviewed and agree with the findings presented. I attest that I had a [id number] encounter with the patient on the same day, and personally performed and documented my assessment and findings in the medical record. Problem Qualifiers (1) AML (acute myeloblastic leukemia): Qualified Codes: C92.00 - Acute myeloblastic leukemia, not having achieved remission Arin Castillo May 20, 2017 10:07 Lainey Anaya MD May 20, 2017 10:59
[2017-05-20] MEDS ORDERED: ALPRAZolam 0.5 MG TAB PO ONE (10:45)
[2017-05-20 13:28] LABS: PLATELET ESTIMATE SMEAR RARE (NORMAL); PLATELET MORPHOLOGY NORMAL (NORMAL); POLYS (SEG NEUTROPHILS) 13 % (16-70); SCAN/DIFF FINAL DIFF MANUAL; WBC DIFF SAMPLE 15
[2017-05-20 13:29] LABS: ROULEAUX PRESENT (NORMAL)
[2017-05-20] MEDS: GRANISETRON INJ 1 MG, DEXAMETHASONE INJ 20 MG in SODIUM CHLORIDE 0.9% INJ 50 ML IV SCH (13:32)
[2017-05-20] MEDS: ACETAMINOPHEN 325 MG TAB PO PRN ×2 (13:41→20:12)
[2017-05-20] MEDS: diphenhydrAMINE HCL 25 MG CAP PO PRN ×2 (13:41→20:12)
--- NOTE | 2017-05-20 14:09 | HHI.PR ---
Subjective Subjective Remarks Not sleeping well, place back on his home Xanax dose per oncology team Continue with supportive care Appetite good Discussed bowel regimen, so far no BM in a day and a half Talkative good spirits (Marcie Summers) Review of Systems Constitutional Constitutional: Weakness (generalized mild) Constitutional Remarks 10 point ROS reviewed any positives noted (Marcie Summers) Hematologic/Lymphatic Heme/Lymph Remarks No rash noted (Marcie Summers) Musculoskeletal MS: Weakness (minimal generalized) (Marcie Summers) Psychiatric Psychiatric: Normal Mood, Anxiety (insomnia) (Marcie Summers) Vitals/Results Vital Signs Vital Signs Date Time Temp Pulse Resp B/P (MAP) Pulse Ox O2 Delivery O2 Flow Rate FiO2 05/20/17 11:30 97.6 82 20 123/74 (90) 97 05/20/17 07:50 97.4 77 20 117/73 (88) 98 05/20/17 06:00 67 05/20/17 04:00 97.8 70 20 129/81 (97) 98 05/20/17 00:00 98.0 88 24 147/81 (103) 98 05/20/17 00:00 69 05/19/17 20:00 67 05/19/17 20:00 96.7 73 20 125/77 (93) 99 05/19/17 15:50 97.4 87 20 117/69 (85) 98 05/19/17 15:25 97.0 72 18 121/76 99 (Marcie Summers) CBC/BMP: 05/20/17 0530 05/20/17 0530 Lab Results Laboratory Tests Test 05/20/17 05:30 White Blood Count 0.1 TH/MM3 Red Blood Count 2.17 MIL/MM3 Hemoglobin 6.3 GM/DL Hematocrit 18.6 % Mean Corpuscular Volume 85.7 FL Mean Corpuscular Hemoglobin 29.1 PG Mean Corpuscular Hemoglobin Concent 34.0 % Red Cell Distribution Width 17.7 % Platelet Count 7 TH/MM3 Mean Platelet Volume 7.7 FL CBC Comment AUTO DIFF Differential Total Cells Counted 15 Neutrophils % (Manual) 13 % Lymphocytes % 53 % Monocytes % 33 % Neutrophils # (Manual) 0.0 TH/MM3 Differential Comment FINAL DIFF MANUAL Platelet Estimate RARE Platelet Morphology Comment NORMAL Rouleau PRESENT Prothrombin Time 13.1 SEC Prothromb Time International Ratio 1.2 RATIO Activated Partial Thromboplast Time 28.7 SEC Fibrinogen 297 mg/dL Blood Urea Nitrogen 32 MG/DL Creatinine 1.04 MG/DL Random Glucose 127 MG/DL Total Protein 6.0 GM/DL Albumin 2.8 GM/DL Calcium Level 7.9 MG/DL Phosphorus Level 4.3 MG/DL Magnesium Level 2.6 MG/DL Uric Acid 5.5 MG/DL Alkaline Phosphatase 42 U/L Aspartate Amino Transf (AST/SGOT) 58 U/L Alanine Aminotransferase (ALT/SGPT) 98 U/L Lactate Dehydrogenase 593 U/L Total Bilirubin 0.8 MG/DL Sodium Level 138 MEQ/L Potassium Level 4.7 MEQ/L Chloride Level 106 MEQ/L Carbon Dioxide Level 24.3 MEQ/L Anion Gap 8 MEQ/L Estimat Glomerular Filtration Rate 71 ML/MIN Imaging Remarks Last Impressions Chest X-Ray 05/16/17 0700 Signed Impressions: Service Date/Time: Tuesday, May 16, 2017 07:41 - CONCLUSION: The lungs are clear. No evidence of pneumothorax. Ethan Sabillon MD [facility] 05/15/17 0000 Signed Impressions: Service Date/Time: Monday, May 15, 2017 14:57 - CONCLUSION: Normal study. Ejection fraction 72%% Man Burden MD Catheter Placement X-Ray 05/15/17 0000 Signed Impressions: Service Date/Time: Monday, May 15, 2017 17:46 - CONCLUSION: Uncomplicated line placement as above. Man Burden MD Current Medications Administered Medications Medications (Trade) Dose Ordered Sig/Ivelisse Route PRN Reason Start Time Stop Time Status Last Admin Dose Admin Acetaminophen (Tylenol) 650 mg Q4H PRN PO fever>100.4 05/15/17 13:00 05/19/17 15:00 Citalopram Hydrobromide (CeleXA) 20 mg DAILY PO 05/16/17 09:00 05/20/17 09:31 Pantoprazole Sodium (Protonix) 20 mg DAILY PO 05/16/17 09:00 05/20/17 09:25 Ondansetron HCl (Zofran Inj) 4 mg Q6HR PRN IV PUSH nausea 05/15/17 14:00 05/16/17 10:30 Allopurinol (Zyloprim) 100 mg BID PO 05/15/17 21:00 05/20/17 09:25 Levofloxacin (Levaquin) 500 mg DAILY PO 05/16/17 00:30 05/20/17 09:25 Trimethoprim/ Sulfamethoxazole (Bactrim Ds 800-160 Mg) 1 tab MoWeFr@09 PO 05/16/17 09:00 05/18/17 08:57 Fluconazole (Diflucan) 100 mg DAILY PO 05/16/17 09:00 05/20/17 09:25 Acyclovir (Zovirax) 400 mg BID PO 05/16/17 09:00 05/20/17 09:23 Multi-Ingredient Mouthwash/Gargle (Magic Mouthwash Adult Liq) 5 ml QID SWISH-SWAL 05/16/17 13:00 05/20/17 13:00 Sodium Chloride 1,000 ml @ 75 mls/hr [id number] IV 05/16/17 13:00 05/16/17 13:00 Cytarabine 200 mg/ Sodium Chloride 500 ml @ 20.833 mls/ hr Q24H IV 05/16/17 15:00 05/23/17 14:59 05/20/17 09:52 Granisetron HCl 1 mg/Dexamethasone Sodium Phosphate 20 mg/Sodium Chloride 56 ml @ 336 mls/hr Q24H IV 05/16/17 14:30 05/22/17 14:39 05/20/17 13:32 Megestrol Acetate (Megace Liq) 300 mg DAILY PO 05/16/17 14:00 05/20/17 09:26 Diphenhydramine HCl (Benadryl) 25 mg Q4H PRN PO SEE LABEL COMMENTS 05/20/17 08:45 05/20/17 13:41 (Marcie Summers) Physical Exam General General Appearance: Well Developed, Well Nourished, Comfortable, Pale (mild) (Marcie Summers) Eyes Eye Exam: Pupils Reactive (Marcie Summers) Ears & Nose Ears & Nose Exam: Nasal Mucosa [place] (Melina,Marcie M. DIE CUTTING MACHINE OPERATOR) Throat Throat Exam: Oral Mucosa [place] & Moist (pale) (Marcie Summers. DIE CUTTING MACHINE OPERATOR) Neck Neck Exam: Neck Supple (Marcie Summers. DIE CUTTING MACHINE OPERATOR) Pulmonary Resp Exam: Clear Bilaterally, No Distress (Marcie Summers. DIE CUTTING MACHINE OPERATOR) Cardiology CV Exam: Regular (Marcie Summers. DIE CUTTING MACHINE OPERATOR) Gastrointestinal/Abdomen GI Exam: Soft, Non-Tender, Bowel Sounds Present (Marcie Summers. DIE CUTTING MACHINE OPERATOR) Hematologic/Lymphatic Heme Remarks No rash noted (Moriah CenterMarcie quigley. DIE CUTTING MACHINE OPERATOR) Musculoskeletal MS Exam: Joints Intact (Marcie Summers. DIE CUTTING MACHINE OPERATOR) Integumentary Skin Exam: Warm, Dry (Marcie Summers. DIE CUTTING MACHINE OPERATOR) Extremeties Extremities Exam: No Edema (Marcie Summers. DIE CUTTING MACHINE OPERATOR) Neurologic Neuro Exam: Alert, Awake, Oriented, Speech Clear, Moving All Extremities (Marcie Summers. DIE CUTTING MACHINE OPERATOR) PUD Prophylasis PUD Remarks PUD prophylaxis (Marcie Summers) Assessment/Plan Assessment/Plan Vital signs reviewed, afebrile, BP 129/81 Labs reviewed, anemia, 6.3, pancytopenia. 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, blast crisis, received 2 units packed RBCs today ,one unit of platelets with Lasix 20 g IV between units, premedicated with Tylenol and Benadryl, per critical hemoglobin Appreciate oncology input and plan of care, continuing chemotherapy treatment regimen as planned per oncology team No active bleeding noted, monitor labs GERD with [place] esophagus PUD prophylaxis and treatment with Protonix Anxiety and depression, controlled, but not sleeping well, transitioned to home Xanax dose and Xanax as needed during the daytime medical management ,Celexa 20 mg by mouth daily No SCDs or anticoagulation recommended at this time due to thrombocytopenia Supportive care to patient Discussed with patient symptomatic treatment and medical management Discussed with Dr. Santos, seen on his behalf Discussed with nurse (Marcie Summers) Assessment/Plan Patient seen and examined as above Labs reviewed Medications reviewed Discussed with RN Plan of care discussed with DIE CUTTING MACHINE OPERATOR Discussed with patient (Gold Santos MD) Marcie Summers May 20, 2017 14:09 Gold Santos MD May 20, 2017 14:47
[2017-05-20] MEDS ORDERED: FUROSEMIDE 20 MG/2 ML VIAL IV SCH (17:00)
[2017-05-20] MEDS: ALPRAZolam 1 MG TAB PO SCH (19:47)
[2017-05-20] MEDS: SODIUM CHLOR 0.9% 1000 ML INJ 1,000 ML IV SCH (23:40)
[2017-05-21] VITALS (12 sets, daily range): BP systolic 112–142; BP diastolic 69–85; PULSE 61–74; RESP 16–20; TEMP 96.5–97.5; O2SAT 95–100
[2017-05-21 06:34] LABS: APTT (PATIENT) 27.3 SEC (24.3-30.1); INTERNATIONAL NORMALIZED RATIO 1.2 RATIO
[2017-05-21 06:35] LABS: HEMATOCRIT 22.7 % (39.0-51.0); MEAN CELL VOLUME 84.4 FL (80.0-100.0); MEAN CORPUSCULAR HEMOGLOBIN 28.8 PG (27.0-34.0); MEAN CORPUSCULAR HGB CONC 34.1 % (32.0-36.0); RED BLOOD COUNT 2.69 MIL/MM3 (4.50-5.90); RED CELL DISTRIBUTION WIDTH 16.8 % (11.6-17.2); WHITE BLOOD COUNT 0.1 TH/MM3 (4.0-11.0)
[2017-05-21 06:50] LABS: HEMO FLAGS AUTO DIFF
[2017-05-21 06:53] LABS: PLATELET COUNT 3 TH/MM3 (150-450)
[2017-05-21 07:11] LABS: ALKALINE PHOSPHATASE 42 U/L (45-117); ALT (GPT) 296 U/L (12-78); ANION GAP 8 MEQ/L (5-15); AST (GOT) 113 U/L (15-37); BICARBONATE 26.4 MEQ/L (21.0-32.0); BLOOD UREA NITROGEN 33 MG/DL (7-18); CHLORIDE 101 MEQ/L (98-107); GLOMERULAR FILTRATION RATE 71 ML/MIN (>89); LDH SERUM 456 U/L (87-241); MAGNESIUM 2.5 MG/DL (1.5-2.5); POTASSIUM 4.3 MEQ/L (3.5-5.1); SODIUM (NA) 135 MEQ/L (136-145); TOTAL BILIRUBIN ADULT 2.1 MG/DL (0.2-1.0)
[2017-05-21] MEDS ORDERED: diphenhydrAMINE HCL 25 MG CAP PO ONE (08:30)
[2017-05-21] MEDS: NYSTAT/DIPHENHY/LIDO MOUTHWASH (Adult) 120ML SWISH-SWAL SCH ×4 (08:38→21:16)
[2017-05-21] MEDS: PANTOPRAZOLE SOD 20 MG DELAYED RELEASE TAB PO SCH (08:39)
[2017-05-21] MEDS: ACETAMINOPHEN 325 MG TAB PO PRN (08:39)
[2017-05-21] MEDS: MEGESTROL ACETATE SUSP 400 MG/10 ML CUP PO SCH (08:39)
[2017-05-21] MEDS: LEVOFLOXACIN 500 MG TAB PO SCH (08:39)
[2017-05-21] MEDS: FLUCONAZOLE 100 MG TAB PO SCH (08:39)
[2017-05-21] MEDS: SULFAMETHOXAZOLE-TRIMETHOPRIM DS 800-160 MG TAB PO SCH (08:39)
[2017-05-21] MEDS: ACYCLOVIR 200 MG CAP PO SCH ×2 (08:39→21:16)
[2017-05-21] MEDS: ALLOPURINOL 100 MG TAB PO SCH ×2 (08:40→21:16)
[2017-05-21] MEDS: CITALOPRAM HYDROBROMIDE 20 MG TAB PO SCH (08:40)
[2017-05-21] MEDS ORDERED: SODIUM CHLOR 0.9% 250 ML INJ 250 ML IV ONE (09:15)
--- NOTE | 2017-05-21 09:33 | PD.ONC.PN ---
Subjective Subjective Remarks doing well and no complaints Objective Data Date Time Temp Pulse Resp B/P (MAP) Pulse Ox O2 Delivery O2 Flow Rate FiO2 05/21/17 08:14 63 05/21/17 07:30 97.5 70 20 121/85 (97) 100 05/21/17 04:00 96.5 61 20 142/85 (104) 96 05/21/17 04:00 68 05/21/17 00:00 68 05/21/17 00:00 97.5 68 20 139/72 (94) 97 05/20/17 21:07 98.1 71 19 100/72 99 05/20/17 20:01 97.4 65 18 127/69 99 05/20/17 20:00 96.7 68 18 114/64 (81) 97 05/20/17 20:00 64 05/20/17 15:24 97.0 99 16 116/76 (89) 99 05/20/17 15:20 97.0 99 16 116/76 99 05/20/17 14:23 97.6 95 18 121/73 99 05/20/17 11:30 97.6 82 20 123/74 (90) 97 05/21/17 05/21/17 05/21/17 07:00 15:00 23:00 Intake Total 600 ml Balance 600 ml Result Diagram: 05/21/17 0500 05/21/17 0500 Laboratory Results Laboratory Tests Test 05/21/17 05:00 White Blood Count 0.1 TH/MM3 Red Blood Count 2.69 MIL/MM3 Hemoglobin 7.7 GM/DL Hematocrit 22.7 % Mean Corpuscular Volume 84.4 FL Mean Corpuscular Hemoglobin 28.8 PG Mean Corpuscular Hemoglobin Concent 34.1 % Red Cell Distribution Width 16.8 % Platelet Count 3 TH/MM3 Mean Platelet Volume 11.6 FL CBC Comment AUTO DIFF Haptoglobin 273 MG/DL Prothrombin Time 13.0 SEC Prothromb Time International Ratio 1.2 RATIO Activated Partial Thromboplast Time 27.3 SEC Fibrinogen 275 mg/dL Blood Urea Nitrogen 33 MG/DL Creatinine 1.04 MG/DL Random Glucose 124 MG/DL Total Protein 5.8 GM/DL Albumin 2.8 GM/DL Calcium Level 8.8 MG/DL Phosphorus Level 4.3 MG/DL Magnesium Level 2.5 MG/DL Alkaline Phosphatase 42 U/L Aspartate Amino Transf (AST/SGOT) 113 U/L Alanine Aminotransferase (ALT/SGPT) 296 U/L Lactate Dehydrogenase 456 U/L Total Bilirubin 2.1 MG/DL Sodium Level 135 MEQ/L Potassium Level 4.3 MEQ/L Chloride Level 101 MEQ/L Carbon Dioxide Level 26.4 MEQ/L Anion Gap 8 MEQ/L Estimat Glomerular Filtration Rate 71 ML/MIN Administered Medications Medications (Trade) Dose Ordered Sig/Ivelisse Route PRN Reason Start Time Stop Time Status Last Admin Dose Admin Acetaminophen (Tylenol) 650 mg Q4H PRN PO fever>100.4 05/15/17 13:00 05/19/17 15:00 Citalopram Hydrobromide (CeleXA) 20 mg DAILY PO 05/16/17 09:00 05/21/17 08:40 Pantoprazole Sodium (Protonix) 20 mg DAILY PO 05/16/17 09:00 05/21/17 08:39 Ondansetron HCl (Zofran Inj) 4 mg Q6HR PRN IV PUSH nausea 05/15/17 14:00 05/16/17 10:30 Allopurinol (Zyloprim) 100 mg BID PO 05/15/17 21:00 05/21/17 08:40 Levofloxacin (Levaquin) 500 mg DAILY PO 05/16/17 00:30 05/21/17 08:39 Trimethoprim/ Sulfamethoxazole (Bactrim Ds 800-160 Mg) 1 tab MoWeFr@09 PO 05/16/17 09:00 05/21/17 08:39 Fluconazole (Diflucan) 100 mg DAILY PO 05/16/17 09:00 05/21/17 08:39 Acyclovir (Zovirax) 400 mg BID PO 05/16/17 09:00 05/21/17 08:39 Multi-Ingredient Mouthwash/Gargle (Magic Mouthwash Adult Liq) 5 ml QID SWISH-SWAL 05/16/17 13:00 05/21/17 08:38 Sodium Chloride 1,000 ml @ 75 mls/hr [id number] IV 05/16/17 13:00 05/16/17 13:00 Cytarabine 200 mg/ Sodium Chloride 500 ml @ 20.833 mls/ hr Q24H IV 05/16/17 15:00 05/23/17 14:59 05/20/17 09:52 Granisetron HCl 1 mg/Dexamethasone Sodium Phosphate 20 mg/Sodium Chloride 56 ml @ 336 mls/hr Q24H IV 05/16/17 14:30 05/22/17 14:39 05/20/17 13:32 Megestrol Acetate (Megace Liq) 300 mg DAILY PO 05/16/17 14:00 05/21/17 08:39 Alprazolam (Xanax) 1 mg HS PO 05/20/17 21:00 06/09/17 09:59 05/20/17 19:47 Objective Remarks GENERAL: Well-nourished, well-developed patient. SKIN: Warm and dry. HEAD: Normocephalic. EYES: No scleral icterus. No injection or drainage. NECK: Supple, trachea midline. No JVD or lymphadenopathy. LYMPHATIC: No adenopathy. CARDIOVASCULAR: Regular rate and rhythm without murmurs. RESPIRATORY: Breath sounds equal bilaterally. No accessory muscle use. GASTROINTESTINAL: Abdomen soft, non-tender, nondistended. EXTREMITIES: multiple small ecchymoses in area where he has scratched the skin MUSCULOSKELETAL: Adequate muscle tone. NEUROLOGICAL: No obvious focal deficit. Awake, alert, and oriented x3. PSYCHIATRIC: Appropriate mood and affect; insight and judgment normal. 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 Plan 1: has severe thrombocytopenia and appears refractory to platelet transfusions which is not surprising given that he has received multiple blood products in past. -I have contacted blood bank and they will do HLA typing and obtain HLA matched plat madhu -begin oral amicar 2: AML- continue SONIA-C and will complete treatment on the 13. 3: infection risk: no fever and will continue prophylactic antibiotics. Matthias Overton MD May 21, 2017 09:33
[2017-05-21 10:16] LABS: POLYS (SEG NEUTROPHILS) 14 % (16-70); WBC DIFF SAMPLE 14
[2017-05-21 10:17] LABS: PLATELET ESTIMATE SMEAR RARE (NORMAL); PLATELET MORPHOLOGY NORMAL (NORMAL); SCAN/DIFF FINAL DIFF MANUAL
[2017-05-21] MEDS: SODIUM CHLOR 0.9% 1000 ML INJ 1,000 ML IV SCH (12:27)
[2017-05-21] MEDS: CYTARABINE IV SCH (12:40)
[2017-05-21] MEDS: SODIUM CHLORID 0.9% IV SCH (12:40)
[2017-05-21] MEDS: AMINOCAPROIC ACID 500 MG TAB PO SCH ×3 (12:43→23:44)
--- NOTE | 2017-05-21 14:43 | HHI.PR ---
Subjective Subjective Remarks Not sleeping well, place back on his home Xanax dose per oncology team Continue with supportive care Appetite good Discussed bowel regimen, so far no BM in a day and a half Talkative good spirits (Marcie Summers) Review of Systems Constitutional Constitutional: Weakness (generalized mild) Constitutional Remarks 10 point ROS reviewed any positives noted (Marcie Summers) Hematologic/Lymphatic Heme/Lymph Remarks No rash noted (Marcie Summers) Musculoskeletal MS: Weakness (minimal generalized) (Marcie Summers) Psychiatric Psychiatric: Normal Mood, Anxiety (insomnia) (Marcie Summers) Vitals/Results Intake & Output 05/21/17 05/21/17 05/22/17 15:00 23:00 07:00 Intake Total 1129 ml Balance 1129 ml IV Total 920 ml Platelets 209 ml Vital Signs Vital Signs Date Time Temp Pulse Resp B/P (MAP) Pulse Ox O2 Delivery O2 Flow Rate FiO2 05/21/17 12:33 65 05/21/17 11:50 96.5 74 20 112/71 (85) 98 05/21/17 09:58 96.8 67 19 127/69 97 05/21/17 09:40 96.6 69 16 124/79 98 05/21/17 08:14 63 05/21/17 07:30 97.5 70 20 121/85 (97) 100 05/21/17 04:00 96.5 61 20 142/85 (104) 96 05/21/17 04:00 68 05/21/17 00:00 68 05/21/17 00:00 97.5 68 20 139/72 (94) 97 05/20/17 21:07 98.1 71 19 100/72 99 05/20/17 20:01 97.4 65 18 127/69 99 05/20/17 20:00 96.7 68 18 114/64 (81) 97 05/20/17 20:00 64 05/20/17 15:24 97.0 99 16 116/76 (89) 99 05/20/17 15:20 97.0 99 16 116/76 99 (Marcie Summers) CBC/BMP: 05/21/17 0500 05/21/17 0500 Lab Results Laboratory Tests Test 05/21/17 05:00 05/21/17 11:18 White Blood Count 0.1 TH/MM3 Red Blood Count 2.69 MIL/MM3 Hemoglobin 7.7 GM/DL Hematocrit 22.7 % Mean Corpuscular Volume 84.4 FL Mean Corpuscular Hemoglobin 28.8 PG Mean Corpuscular Hemoglobin Concent 34.1 % Red Cell Distribution Width 16.8 % Platelet Count 3 TH/MM3 Mean Platelet Volume 11.6 FL CBC Comment AUTO DIFF Differential Total Cells Counted 14 Neutrophils % (Manual) 14 % Lymphocytes % 64 % Monocytes % 22 % Neutrophils # (Manual) 0.0 TH/MM3 Differential Comment FINAL DIFF MANUAL Plasma Cells % Platelet Estimate RARE Platelet Morphology Comment NORMAL Haptoglobin 273 MG/DL Prothrombin Time 13.0 SEC Prothromb Time International Ratio 1.2 RATIO Activated Partial Thromboplast Time 27.3 SEC Fibrinogen 275 mg/dL Blood Urea Nitrogen 33 MG/DL Creatinine 1.04 MG/DL Random Glucose 124 MG/DL Total Protein 5.8 GM/DL Albumin 2.8 GM/DL Calcium Level 8.8 MG/DL Phosphorus Level 4.3 MG/DL Magnesium Level 2.5 MG/DL Alkaline Phosphatase 42 U/L Aspartate Amino Transf (AST/SGOT) 113 U/L Alanine Aminotransferase (ALT/SGPT) 296 U/L Lactate Dehydrogenase 456 U/L Total Bilirubin 2.1 MG/DL Sodium Level 135 MEQ/L Potassium Level 4.3 MEQ/L Chloride Level 101 MEQ/L Carbon Dioxide Level 26.4 MEQ/L Anion Gap 8 MEQ/L Estimat Glomerular Filtration Rate 71 ML/MIN (Marcie Summers) Physical Exam General General Appearance: Well Developed, Well Nourished, Comfortable, Pale (mild) (Marcie SummersP) Eyes Eye Exam: Pupils Reactive (Marcie SummersP) Ears & Nose Ears & Nose Exam: Nasal Mucosa [place] (Marcie SummersP) Throat Throat Exam: Oral Mucosa [place] & Moist (pale) (Marcie SummersP) Neck Neck Exam: Neck Supple (Marcie SummersP) Pulmonary Resp Exam: Clear Bilaterally, No Distress (Marcie Summers) Cardiology CV Exam: Regular (Marcie Summers) Gastrointestinal/Abdomen GI Exam: Soft, Non-Tender, Bowel Sounds Present (Marcie Summers) Hematologic/Lymphatic Heme Remarks No rash noted (Marcie Summers) Musculoskeletal MS Exam: Joints Intact (Marcie Summers) Integumentary Skin Exam: Warm, Dry (Marcie Summers) Extremeties Extremities Exam: No Edema (Marcie SummersP) Neurologic Neuro Exam: Alert, Awake, Oriented, Speech Clear, Moving All Extremities (Marcie SummersP) PUD Prophylasis PUD Remarks PUD prophylaxis (Marcie SummersP) Assessment/Plan Assessment/Plan Vital signs reviewed, afebrile, BP 142/85 Labs reviewed, anemia, 7.7, platelets 3, WBC 0.1 INR 1.2, APTT27.3 Nutrition regimen evaluated, appetite good, albumin low, protein low, encouraged protein supplements continue Bowel regimen Encourage activity, denies any pain, but appears to feel a little weaker today even though he denies it Acute myeloblastic leukemia with pancytopenia, 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, blast crisis, Appreciate oncology input and plan of care, continuing chemotherapy treatment regimen as planned per oncology team No active bleeding noted, monitor labs GERD with [place] esophagus PUD prophylaxis and treatment with Protonix Anxiety and depression, controlled, appears more comfortable today with Xanax as needed medical management ,Celexa 20 mg by mouth daily No SCDs or anticoagulation recommended at this time due to thrombocytopenia Supportive care to patient Discussed with patient symptomatic treatment and medical management Discussed with Dr. Santos, seen on his behalf Discussed with nurse (Marcie Summers) Assessment/Plan Patient was seen and examined in detail as above yesterday. Labs and medications were reviewed Case discussed with oncologist yesterday.dr [email or web address] Discussed with patient in detail On of care was discussed with QUILL SKINNER (Gold Santos MD) Marcie Summers May 21, 2017 14:43 Gold Santos MD May 22, 2017 12:28
[2017-05-21] MEDS ORDERED: GRANISETRON INJ 1 MG, DEXAMETHASONE INJ 20 MG in SODIUM CHLORIDE 0.9% INJ 50 ML IV SCH (15:00)
[2017-05-21] MEDS: MAGNESIUM HYDROXIDE SUSP 30 ML CUP PO PRN (16:54)
[2017-05-21] MEDS: ALPRAZolam 0.5 MG TAB PO PRN (19:52)
[2017-05-21] MEDS: ALPRAZolam 1 MG TAB PO SCH (23:33)
[2017-05-22] VITALS (10 sets, daily range): BP systolic 101–169; BP diastolic 56–80; PULSE 65–129; RESP 17–18; TEMP 96.4–98.4; O2SAT 97–100
[2017-05-22] MEDS: AMINOCAPROIC ACID 500 MG TAB PO SCH ×3 (06:25→18:14)
[2017-05-22 07:09] LABS: MEAN CELL VOLUME 85.7 FL (80.0-100.0); MEAN CORPUSCULAR HGB CONC 33.8 % (32.0-36.0); RED BLOOD COUNT 2.57 MIL/MM3 (4.50-5.90); RED CELL DISTRIBUTION WIDTH 17.2 % (11.6-17.2); WHITE BLOOD COUNT 0.1 TH/MM3 (4.0-11.0)
[2017-05-22 07:13] LABS: INTERNATIONAL NORMALIZED RATIO 1.2 RATIO; PROTHROMBIN TIME - PATIENT 13.4 SEC (9.8-11.6)
[2017-05-22 07:14] LABS: HEMO FLAGS AUTO DIFF
[2017-05-22 07:15] LABS: PLATELET COUNT 15 TH/MM3 (150-450)
[2017-05-22 07:16] LABS: ANION GAP 7 MEQ/L (5-15); AST (GOT) 55 U/L (15-37); BICARBONATE 26.8 MEQ/L (21.0-32.0); BLOOD UREA NITROGEN 28 MG/DL (7-18); CHLORIDE 102 MEQ/L (98-107); GLOMERULAR FILTRATION RATE 70 ML/MIN (>89); MAGNESIUM 2.3 MG/DL (1.5-2.5); POTASSIUM 4.2 MEQ/L (3.5-5.1); SODIUM (NA) 136 MEQ/L (136-145)
[2017-05-22 07:17] LABS: ALT (GPT) 257 U/L (12-78); LDH SERUM 346 U/L (87-241)
[2017-05-22 07:18] LABS: ALKALINE PHOSPHATASE 44 U/L (45-117)
[2017-05-22 08:09] LABS: WBC DIFF SAMPLE 10
[2017-05-22 08:10] LABS: OVALOCYTES 1+ (NORMAL); PLATELET ESTIMATE SMEAR LOW (NORMAL); PLATELET MORPHOLOGY NORMAL (NORMAL); SCAN/DIFF FINAL DIFF MANUAL
[2017-05-22] MEDS: LEVOFLOXACIN 500 MG TAB PO SCH (08:56)
[2017-05-22] MEDS: NYSTAT/DIPHENHY/LIDO MOUTHWASH (Adult) 120ML SWISH-SWAL SCH ×4 (08:56→21:15)
[2017-05-22] MEDS: MEGESTROL ACETATE SUSP 400 MG/10 ML CUP PO SCH (08:56)
[2017-05-22] MEDS: PANTOPRAZOLE SOD 20 MG DELAYED RELEASE TAB PO SCH (08:56)
[2017-05-22] MEDS: ACYCLOVIR 200 MG CAP PO SCH ×2 (08:56→21:15)
[2017-05-22] MEDS: FLUCONAZOLE 100 MG TAB PO SCH (08:56)
[2017-05-22] MEDS: ALLOPURINOL 100 MG TAB PO SCH ×2 (08:56→21:15)
[2017-05-22] MEDS: CITALOPRAM HYDROBROMIDE 20 MG TAB PO SCH (08:56)
--- NOTE | 2017-05-22 09:40 | PD.ONC.PN ---
Subjective Subjective Remarks Feels well. Passing gas, no BM x 4 days, atypical for pt's regular habit. Tolerating chemo day 7 today. Objective Data Date Time Temp Pulse Resp B/P (MAP) Pulse Ox O2 Delivery O2 Flow Rate FiO2 05/22/17 08:00 97.1 72 17 132/76 (94) 100 05/22/17 04:25 96.8 129 18 111/70 (84) 99 05/22/17 04:01 72 05/22/17 00:35 98.4 65 17 128/77 (94) 98 05/22/17 00:18 72 05/21/17 20:30 97.4 74 17 116/69 (85) 98 05/21/17 20:06 72 05/21/17 16:08 67 05/21/17 15:50 97.1 71 20 120/71 (87) 95 05/21/17 12:33 65 05/21/17 11:50 96.5 74 20 112/71 (85) 98 05/21/17 09:58 96.8 67 19 127/69 97 05/21/17 09:40 96.6 69 16 124/79 98 Result Diagram: 05/22/17 0635 05/22/17 0635 Laboratory Results Laboratory Tests Test 05/21/17 11:18 05/22/17 06:35 White Blood Count 0.1 TH/MM3 Red Blood Count 2.57 MIL/MM3 Hemoglobin 7.4 GM/DL Hematocrit 22.0 % Mean Corpuscular Volume 85.7 FL Mean Corpuscular Hemoglobin 29.0 PG Mean Corpuscular Hemoglobin Concent 33.8 % Red Cell Distribution Width 17.2 % Platelet Count 15 TH/MM3 Mean Platelet Volume 7.5 FL CBC Comment AUTO DIFF Differential Total Cells Counted 10 Lymphocytes % 100 % Differential Comment FINAL DIFF MANUAL Platelet Estimate LOW Platelet Morphology Comment NORMAL Ovalocytes 1+ Prothrombin Time 13.4 SEC Prothromb Time International Ratio 1.2 RATIO Activated Partial Thromboplast Time 28.0 SEC Fibrinogen 335 mg/dL Blood Urea Nitrogen 28 MG/DL Creatinine 1.05 MG/DL Random Glucose 119 MG/DL Total Protein 5.8 GM/DL Albumin 2.7 GM/DL Calcium Level 8.3 MG/DL Phosphorus Level 3.5 MG/DL Magnesium Level 2.3 MG/DL Alkaline Phosphatase 44 U/L Aspartate Amino Transf (AST/SGOT) 55 U/L Alanine Aminotransferase (ALT/SGPT) 257 U/L Lactate Dehydrogenase 346 U/L Total Bilirubin 2.0 MG/DL Sodium Level 136 MEQ/L Potassium Level 4.2 MEQ/L Chloride Level 102 MEQ/L Carbon Dioxide Level 26.8 MEQ/L Anion Gap 7 MEQ/L Estimat Glomerular Filtration Rate 70 ML/MIN Administered Medications Medications (Trade) Dose Ordered Sig/Ivelisse Route PRN Reason Start Time Stop Time Status Last Admin Dose Admin Acetaminophen (Tylenol) 650 mg Q4H PRN PO fever>100.4 05/15/17 13:00 05/19/17 15:00 Citalopram Hydrobromide (CeleXA) 20 mg DAILY PO 05/16/17 09:00 05/22/17 08:56 Pantoprazole Sodium (Protonix) 20 mg DAILY PO 05/16/17 09:00 05/22/17 08:56 Ondansetron HCl (Zofran Inj) 4 mg Q6HR PRN IV PUSH nausea 05/15/17 14:00 05/16/17 10:30 Allopurinol (Zyloprim) 100 mg BID PO 05/15/17 21:00 05/22/17 08:56 Levofloxacin (Levaquin) 500 mg DAILY PO 05/16/17 00:30 05/22/17 08:56 Trimethoprim/ Sulfamethoxazole (Bactrim Ds 800-160 Mg) 1 tab MoWeFr@09 PO 05/16/17 09:00 05/21/17 08:39 Fluconazole (Diflucan) 100 mg DAILY PO 05/16/17 09:00 05/22/17 08:56 Acyclovir (Zovirax) 400 mg BID PO 05/16/17 09:00 05/22/17 08:56 Multi-Ingredient Mouthwash/Gargle (Magic Mouthwash Adult Liq) 5 ml QID SWISH-SWAL 05/16/17 13:00 05/22/17 08:56 Megestrol Acetate (Megace Liq) 300 mg DAILY PO 05/16/17 14:00 05/22/17 08:56 Alprazolam (Xanax) 1 mg HS PO 05/20/17 21:00 06/09/17 09:59 05/21/17 23:33 Alprazolam (Xanax) 0.5 mg Q8H PRN PO anxiety 05/20/17 10:15 05/21/17 19:52 Aminocaproic Acid (Amicar) 1,000 mg Q6HR PO 05/21/17 12:00 05/22/17 06:25 Magnesium Hydroxide (Milk Of [place] Liq) 30 ml DAILY PRN PO CONSTIPATION 05/21/17 11:30 05/21/17 16:54 Objective Remarks GENERAL: Well-nourished, well-developed patient. SKIN: Warm and dry. Petechiae anterior post BL with pt crossing legs in bed. HEAD: Normocephalic. EYES: No scleral icterus. No injection or drainage. NECK: Supple, trachea midline. No JVD or lymphadenopathy. LYMPHATIC: No adenopathy. CARDIOVASCULAR: Regular rate and rhythm without murmurs. RESPIRATORY: Breath sounds equal bilaterally. No accessory muscle use. GASTROINTESTINAL: Abdomen soft, non-tender, nondistended. EXTREMITIES: multiple small ecchymoses in area where he has scratched the skin MUSCULOSKELETAL: Adequate muscle tone. NEUROLOGICAL: No obvious focal deficit. Awake, alert, and oriented x3. PSYCHIATRIC: Appropriate mood and affect; insight and judgment normal. Assessment/Plan Problem List: (1) AML (acute myeloblastic leukemia) ICD Codes: C92.00 - Acute myeloblastic leukemia, not having achieved remission Plan: 05/15/17: Admission. given Hydrea. [facility] performed Leukapheresis bringing WBC from >100K to 44K. 05/16/17: D1. SONIA-C + [facility] [place]. 1 unit pRBC 05/17/17: D2. no transfusion. tolerating chemo 05/18/17: D3. no transfusion. 05/19/17: D4. 1 unit platelets today. No evidence of tumor lysis. Pt finished idarubicin yesterday. Continue SONIA-C. 05/20/17 D5: 1 unit platelets, 2 units PRBC's today. Will add on xanax prn and 1mg xanax at HS scheduled. Continue chemo, continue to monitor blood counts. 05/21/17.D6: No transfusion, start lactulose for Bm, continue chemo --FISH and cytogenetic studies are pending. 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 --He presented with hyperleukocytosis and acute blast crises. --on Allopurinol 100mg PO BID for prophylaxis (2) Pancytopenia ICD Codes: D61.818 - Other pancytopenia Status: Acute Plan: 05/22/17. Plan for transfusion, no transfusion needed today. --transfuse him for hemoglobin of 7 or less. -- irradiated/CMV-negative blood products. --transfuse for platelet count of 10 or less. --Bactrim DS MWF, Levaquin, Diflucan 100mg daily, Acyclovir 400mg PO BID (3) Coagulopathy ICD Codes: D68.9 - Coagulation defect, unspecified Status: Acute Plan: 05/22/17. No bleeding. Monitor coag. --Check daily fibrinogen levels. --check his coags and LDH and haptoglobin [id number]. Assessment 72y/o male with acute myeloid leukemia with blast crisis. 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 Plan 1: has severe thrombocytopenia and appears refractory to platelet transfusions which is not surprising given that he has received multiple blood products in past. HLA typing and obtain HLA matched plat have been requested -begin oral amicar 2: Continue chemo per protocol, SONIA-C and will complete treatment on 05/23. 3: Neutropenia, afebrile, continue prophylactic antibiotics. Problem Qualifiers (1) AML (acute myeloblastic leukemia): Qualified Codes: C92.00 - Acute myeloblastic leukemia, not having achieved remission Lena Garcias MD May 22, 2017 09:40
[2017-05-22] MEDS: LACTULOSE SYRUP 20 GM/30 ML CUP PO SCH ×3 (10:38→18:02)
[2017-05-22] MEDS ORDERED: GRANISETRON INJ 1 MG, DEXAMETHASONE INJ 20 MG in SODIUM CHLORIDE 0.9% INJ 50 ML IV SCH (13:30)
[2017-05-22] MEDS: CYTARABINE IV SCH (15:17)
[2017-05-22] MEDS: SODIUM CHLORID 0.9% IV SCH (15:17)
--- NOTE | 2017-05-22 16:35 | HHI.PR ---
Subjective Subjective Remarks Up in chair watching TV and resting almost all day Constipation working with staff and medical management Denies any pain (Marcie Summers) Review of Systems Constitutional Constitutional: Weakness (generalized mild) Constitutional Remarks 10 point ROS reviewed any positives noted (Marcie Summers) GI/Abdomen GI/Abdominal Exam: Constipation (Marcie Summers) Hematologic/Lymphatic Heme/Lymph Remarks No rash noted (Marcie Summers) Musculoskeletal MS: Weakness (minimal generalized) (Marcie Summers) Psychiatric Psychiatric: Normal Mood, Anxiety (insomnia) (Marcie Summers) Vitals/Results Vital Signs Vital Signs Date Time Temp Pulse Resp B/P (MAP) Pulse Ox O2 Delivery O2 Flow Rate FiO2 05/22/17 12:00 96.5 78 17 101/56 (71) 98 05/22/17 08:00 97.1 72 17 132/76 (94) 100 05/22/17 08:00 71 05/22/17 04:25 96.8 129 18 111/70 (84) 99 05/22/17 04:01 72 05/22/17 00:35 98.4 65 17 128/77 (94) 98 05/22/17 00:18 72 05/21/17 20:30 97.4 74 17 116/69 (85) 98 05/21/17 20:06 72 (Marcie Summers) CBC/BMP: 05/22/17 0635 05/22/17 0635 Lab Results Laboratory Tests Test 05/22/17 06:35 White Blood Count 0.1 TH/MM3 Red Blood Count 2.57 MIL/MM3 Hemoglobin 7.4 GM/DL Hematocrit 22.0 % Mean Corpuscular Volume 85.7 FL Mean Corpuscular Hemoglobin 29.0 PG Mean Corpuscular Hemoglobin Concent 33.8 % Red Cell Distribution Width 17.2 % Platelet Count 15 TH/MM3 Mean Platelet Volume 7.5 FL CBC Comment AUTO DIFF Differential Total Cells Counted 10 Lymphocytes % 100 % Differential Comment FINAL DIFF MANUAL Platelet Estimate LOW Platelet Morphology Comment NORMAL Ovalocytes 1+ Prothrombin Time 13.4 SEC Prothromb Time International Ratio 1.2 RATIO Activated Partial Thromboplast Time 28.0 SEC Fibrinogen 335 mg/dL Blood Urea Nitrogen 28 MG/DL Creatinine 1.05 MG/DL Random Glucose 119 MG/DL Total Protein 5.8 GM/DL Albumin 2.7 GM/DL Calcium Level 8.3 MG/DL Phosphorus Level 3.5 MG/DL Magnesium Level 2.3 MG/DL Alkaline Phosphatase 44 U/L Aspartate Amino Transf (AST/SGOT) 55 U/L Alanine Aminotransferase (ALT/SGPT) 257 U/L Lactate Dehydrogenase 346 U/L Total Bilirubin 2.0 MG/DL Sodium Level 136 MEQ/L Potassium Level 4.2 MEQ/L Chloride Level 102 MEQ/L Carbon Dioxide Level 26.8 MEQ/L Anion Gap 7 MEQ/L Estimat Glomerular Filtration Rate 70 ML/MIN Current Medications Administered Medications Medications (Trade) Dose Ordered Sig/Ivelisse Route PRN Reason Start Time Stop Time Status Last Admin Dose Admin Acetaminophen (Tylenol) 650 mg Q4H PRN PO fever>100.4 05/15/17 13:00 05/19/17 15:00 Citalopram Hydrobromide (CeleXA) 20 mg DAILY PO 05/16/17 09:00 05/22/17 08:56 Pantoprazole Sodium (Protonix) 20 mg DAILY PO 05/16/17 09:00 05/22/17 08:56 Ondansetron HCl (Zofran Inj) 4 mg Q6HR PRN IV PUSH nausea 05/15/17 14:00 05/16/17 10:30 Allopurinol (Zyloprim) 100 mg BID PO 05/15/17 21:00 05/22/17 08:56 Levofloxacin (Levaquin) 500 mg DAILY PO 05/16/17 00:30 05/22/17 08:56 Trimethoprim/ Sulfamethoxazole (Bactrim Ds 800-160 Mg) 1 tab MoWeFr@09 PO 05/16/17 09:00 05/21/17 08:39 Fluconazole (Diflucan) 100 mg DAILY PO 05/16/17 09:00 05/22/17 08:56 Acyclovir (Zovirax) 400 mg BID PO 05/16/17 09:00 05/22/17 08:56 Multi-Ingredient Mouthwash/Gargle (Magic Mouthwash Adult Liq) 5 ml QID SWISH-SWAL 05/16/17 13:00 05/22/17 13:13 Megestrol Acetate (Megace Liq) 300 mg DAILY PO 05/16/17 14:00 05/22/17 08:56 Alprazolam (Xanax) 1 mg HS PO 05/20/17 21:00 06/09/17 09:59 05/21/17 23:33 Alprazolam (Xanax) 0.5 mg Q8H PRN PO anxiety 05/20/17 10:15 05/21/17 19:52 Aminocaproic Acid (Amicar) 1,000 mg Q6HR PO 05/21/17 12:00 05/22/17 13:13 Magnesium Hydroxide (Milk Of Magnesia Liq) 30 ml DAILY PRN PO CONSTIPATION 05/21/17 11:30 05/21/17 16:54 Cytarabine 200 mg/ Sodium Chloride 500 ml @ 20.833 mls/ hr Q24H IV 05/22/17 14:00 05/24/17 13:59 05/22/17 15:17 Granisetron HCl 1 mg/Dexamethasone Sodium Phosphate 20 mg/Sodium Chloride 56 ml @ 336 mls/hr Q24H IV 05/22/17 13:30 05/23/17 13:39 05/22/17 14:30 Lactulose (Lactulose Liq) 30 ml Q4HR PO 05/22/17 12:00 05/22/17 20:01 05/22/17 10:38 (Marcie Summers) Physical Exam General General Appearance: Well Developed, Well Nourished, Comfortable, Pale (mild), Anxious (at times requires Xanax which helps him relax) (Marcie Summers) Eyes Eye Exam: Pupils Reactive (Marcie Summers) Ears & Nose Ears & Nose Exam: Nasal Mucosa [place] (Marcie Summers) Throat Throat Exam: Oral Mucosa [place] & Moist (pale) (Marcie Summers) Neck Neck Exam: Neck Supple (Marcie Summers) Pulmonary Resp Exam: Clear Bilaterally, No Distress (Marcie Summers) Cardiology CV Exam: Regular (Marcie Summers) Gastrointestinal/Abdomen GI Exam: Soft, Non-Tender, Bowel Sounds Present (Marcie Summers) Hematologic/Lymphatic Heme Remarks No rash noted (Marcie Summers) Musculoskeletal MS Exam: Joints Intact (Marcie Summers) Integumentary Skin Exam: Warm, Dry (Marcie Summers) Extremeties Extremities Exam: No Edema (Marcie Summers) Neurologic Neuro Exam: Alert, Awake, Oriented, Speech Clear, Moving All Extremities (Marcie Summers) PUD Prophylasis PUD Remarks PUD prophylaxis (Marcie Summers) Assessment/Plan Assessment/Plan Vital signs reviewed, afebrile has fairly normal trends without any symptoms noted Labs reviewed, platelets 15 today, pancytopenia, anemia, no acute blood loss noted Encouraged Nutrition Bowel regimen, 4 days but patient is receiving multiple meds and staff is working with him for bowel movement Encourage activity, patient been up in the chair most of the day Acute myeloblastic leukemia with pancytopenia, 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, blast crisis, will receive her last dose of chemotherapy tomorrow then we'll have brief rest. 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 Santos, seen on his behalf Discussed with nurse (Marcie Summers) Assessment/Plan pt seen and examined as above labs reviewed meds reviewed dw pt [place] oncology input dw pharmaceutical development technician about plan of care (Gold Santos MD) Marcie Summers May 22, 2017 16:35 Gold Santos MD May 22, 2017 21:16
[2017-05-22] MEDS: ALPRAZolam 1 MG TAB PO SCH (21:15)
[2017-05-23] VITALS (16 sets, daily range): BP systolic 103–129; BP diastolic 60–77; PULSE 63–86; RESP 16–18; TEMP 95.9–98.9; O2SAT 95–100
[2017-05-23] MEDS: AMINOCAPROIC ACID 500 MG TAB PO SCH ×5 (00:18→23:20)
[2017-05-23 04:54] LABS: LYMPH % 54.4 % (9.0-44.0); MEAN CELL VOLUME 84.8 FL (80.0-100.0); MEAN CORPUSCULAR HGB CONC 34.2 % (32.0-36.0); MONO % 38.4 % (0.0-8.0); NEUT % 7.2 % (16.0-70.0); RED BLOOD COUNT 2.23 MIL/MM3 (4.50-5.90); RED CELL DISTRIBUTION WIDTH 16.4 % (11.6-17.2); WHITE BLOOD COUNT 0.1 TH/MM3 (4.0-11.0)
[2017-05-23 05:01] LABS: APTT (PATIENT) 30.4 SEC (24.3-30.1); HEMO FLAGS AUTO DIFF; INTERNATIONAL NORMALIZED RATIO 1.2 RATIO; PROTHROMBIN TIME - PATIENT 13.1 SEC (9.8-11.6)
[2017-05-23 05:07] LABS: HEMATOCRIT 18.9 % (39.0-51.0); PLATELET COUNT 9 TH/MM3 (150-450)
[2017-05-23 05:25] LABS: ANION GAP 5 MEQ/L (5-15); AST (GOT) 33 U/L (15-37); BICARBONATE 27.7 MEQ/L (21.0-32.0); BLOOD UREA NITROGEN 24 MG/DL (7-18); CHLORIDE 102 MEQ/L (98-107); GLOMERULAR FILTRATION RATE 101 ML/MIN (>89); MAGNESIUM 2.3 MG/DL (1.5-2.5); POTASSIUM 4.6 MEQ/L (3.5-5.1); SODIUM (NA) 135 MEQ/L (136-145)
[2017-05-23 05:26] LABS: ALT (GPT) 186 U/L (12-78); LDH SERUM 260 U/L (87-241)
[2017-05-23 05:28] LABS: ALKALINE PHOSPHATASE 41 U/L (45-117); TOTAL BILIRUBIN ADULT 1.2 MG/DL (0.2-1.0)
[2017-05-23 07:14] LABS: POLYS (SEG NEUTROPHILS) 20 % (16-70); WBC DIFF SAMPLE 20
[2017-05-23 07:15] LABS: PLATELET ESTIMATE SMEAR RARE (NORMAL); PLATELET MORPHOLOGY NORMAL (NORMAL); SCAN/DIFF FINAL DIFF MANUAL
[2017-05-23 08:59] LABS: CALCIUM-PROTEIN CORRECTED 8.9 MG/DL (8.5-10.1)
[2017-05-23] MEDS: MEGESTROL ACETATE SUSP 400 MG/10 ML CUP PO SCH (09:09)
[2017-05-23] MEDS: ACYCLOVIR 200 MG CAP PO SCH ×2 (09:09→19:55)
[2017-05-23] MEDS: diphenhydrAMINE HCL 25 MG CAP PO PRN ×2 (09:09→12:53)
[2017-05-23] MEDS: CITALOPRAM HYDROBROMIDE 20 MG TAB PO SCH (09:09)
[2017-05-23] MEDS: LEVOFLOXACIN 500 MG TAB PO SCH (09:09)
[2017-05-23] MEDS: SULFAMETHOXAZOLE-TRIMETHOPRIM DS 800-160 MG TAB PO SCH (09:09)
[2017-05-23] MEDS: FLUCONAZOLE 100 MG TAB PO SCH (09:10)
[2017-05-23] MEDS: NYSTAT/DIPHENHY/LIDO MOUTHWASH (Adult) 120ML SWISH-SWAL SCH ×4 (09:10→19:55)
[2017-05-23] MEDS: ACETAMINOPHEN 325 MG TAB PO PRN ×2 (09:10→12:54)
[2017-05-23] MEDS: PANTOPRAZOLE SOD 20 MG DELAYED RELEASE TAB PO SCH (09:10)
[2017-05-23] MEDS: ALLOPURINOL 100 MG TAB PO SCH ×2 (09:16→19:55)
--- NOTE | 2017-05-23 09:49 | PD.ONC.PN ---
Subjective Subjective Remarks Afebrile Pt reports he was previously having some constipation but this has resolved No other acute complaints. Objective Data Date Time Temp Pulse Resp B/P (MAP) Pulse Ox O2 Delivery O2 Flow Rate FiO2 05/23/17 08:00 97.5 81 16 115/64 (81) 98 05/23/17 04:25 97.8 68 17 113/71 (85) 98 05/23/17 04:03 65 05/23/17 00:25 97.2 75 17 103/63 (76) 98 05/23/17 00:13 69 05/22/17 20:05 67 05/22/17 20:00 97.3 68 18 118/72 (87) 99 05/22/17 16:00 90 05/22/17 16:00 96.4 81 17 108/63 (78) 98 05/22/17 12:13 73 05/22/17 12:00 96.5 78 17 101/56 (71) 98 05/23/17 05/23/17 05/23/17 07:00 15:00 23:00 Intake Total 480 ml Balance 480 ml Result Diagram: 05/23/17 0440 05/23/17 0440 Laboratory Results Laboratory Tests Test 05/23/17 04:40 White Blood Count 0.1 TH/MM3 Red Blood Count 2.23 MIL/MM3 Hemoglobin 6.5 GM/DL Hematocrit 18.9 % Mean Corpuscular Volume 84.8 FL Mean Corpuscular Hemoglobin 29.0 PG Mean Corpuscular Hemoglobin Concent 34.2 % Red Cell Distribution Width 16.4 % Platelet Count 9 TH/MM3 Mean Platelet Volume 7.0 FL Neutrophils (%) (Auto) 7.2 % Lymphocytes (%) (Auto) 54.4 % Monocytes (%) (Auto) 38.4 % Eosinophils (%) (Auto) 0.0 % Basophils (%) (Auto) 0.0 % Neutrophils # (Auto) 0.0 TH/MM3 Lymphocytes # (Auto) 0.0 TH/MM3 Monocytes # (Auto) 0.0 TH/MM3 Eosinophils # (Auto) 0.0 TH/MM3 Basophils # (Auto) 0.0 TH/MM3 CBC Comment AUTO DIFF Differential Total Cells Counted 20 Neutrophils % (Manual) 20 % Lymphocytes % 60 % Monocytes % 20 % Neutrophils # (Manual) 0.0 TH/MM3 Differential Comment FINAL DIFF MANUAL Platelet Estimate RARE Platelet Morphology Comment NORMAL Haptoglobin 284 MG/DL Prothrombin Time 13.1 SEC Prothromb Time International Ratio 1.2 RATIO Activated Partial Thromboplast Time 30.4 SEC Fibrinogen 357 mg/dL Blood Urea Nitrogen 24 MG/DL Creatinine 0.76 MG/DL Random Glucose 120 MG/DL Total Protein 5.3 GM/DL Albumin 2.4 GM/DL Calcium Level 8.1 MG/DL Phosphorus Level 3.2 MG/DL Magnesium Level 2.3 MG/DL Alkaline Phosphatase 41 U/L Aspartate Amino Transf (AST/SGOT) 33 U/L Alanine Aminotransferase (ALT/SGPT) 186 U/L Lactate Dehydrogenase 260 U/L Total Bilirubin 1.2 MG/DL Sodium Level 135 MEQ/L Potassium Level 4.6 MEQ/L Chloride Level 102 MEQ/L Carbon Dioxide Level 27.7 MEQ/L Anion Gap 5 MEQ/L Estimat Glomerular Filtration Rate 101 ML/MIN Protein Corrected Calcium 8.9 MG/DL Administered Medications Medications (Trade) Dose Ordered Sig/Ivelisse Route PRN Reason Start Time Stop Time Status Last Admin Dose Admin Acetaminophen (Tylenol) 650 mg Q4H PRN PO fever>100.4 05/15/17 13:00 05/19/17 15:00 Citalopram Hydrobromide (CeleXA) 20 mg DAILY PO 05/16/17 09:00 05/23/17 09:09 Pantoprazole Sodium (Protonix) 20 mg DAILY PO 05/16/17 09:00 05/23/17 09:10 Ondansetron HCl (Zofran Inj) 4 mg Q6HR PRN IV PUSH nausea 05/15/17 14:00 05/16/17 10:30 Allopurinol (Zyloprim) 100 mg BID PO 05/15/17 21:00 05/23/17 09:16 Levofloxacin (Levaquin) 500 mg DAILY PO 05/16/17 00:30 05/23/17 09:09 Trimethoprim/ Sulfamethoxazole (Bactrim Ds 800-160 Mg) 1 tab MoWeFr@09 PO 05/16/17 09:00 05/23/17 09:09 Fluconazole (Diflucan) 100 mg DAILY PO 05/16/17 09:00 05/23/17 09:10 Acyclovir (Zovirax) 400 mg BID PO 05/16/17 09:00 05/23/17 09:09 Multi-Ingredient Mouthwash/Gargle (Magic Mouthwash Adult Liq) 5 ml QID SWISH-SWAL 05/16/17 13:00 05/23/17 09:10 Megestrol Acetate (Megace Liq) 300 mg DAILY PO 05/16/17 14:00 05/23/17 09:09 Alprazolam (Xanax) 1 mg HS PO 05/20/17 21:00 06/09/17 09:59 05/22/17 21:15 Alprazolam (Xanax) 0.5 mg Q8H PRN PO anxiety 05/20/17 10:15 05/21/17 19:52 Aminocaproic Acid (Amicar) 1,000 mg Q6HR PO 05/21/17 12:00 05/23/17 05:36 Magnesium Hydroxide (Milk Of Magnesia Liq) 30 ml DAILY PRN PO CONSTIPATION 05/21/17 11:30 05/21/17 16:54 Cytarabine 200 mg/ Sodium Chloride 500 ml @ 20.833 mls/ hr Q24H IV 05/22/17 14:00 05/24/17 13:59 05/22/17 15:17 Granisetron HCl 1 mg/Dexamethasone Sodium Phosphate 20 mg/Sodium Chloride 56 ml @ 336 mls/hr Q24H IV 05/22/17 13:30 05/23/17 13:39 05/22/17 14:30 Acetaminophen (Tylenol) 650 mg Q4H PRN PO SEE LABEL COMMENTS 05/23/17 06:00 05/23/17 09:10 Diphenhydramine HCl (Benadryl) 25 mg Q4H PRN PO SEE LABEL COMMENTS 05/23/17 06:00 05/23/17 09:09 Objective Remarks GENERAL: Pleasant middle aged male, upright in bed in [facility]. SKIN: Warm and dry. Scattered petechiae on legs. HEAD: Normocephalic. EYES: No scleral icterus. No injection or drainage. NECK: Supple, trachea midline. CARDIOVASCULAR: Regular rate and rhythm RESPIRATORY: Breath sounds equal bilaterally. No accessory muscle use. GASTROINTESTINAL: Abdomen soft, non-tender, nondistended. EXTREMITIES: No cyanosis NEUROLOGICAL: Awake and alert, normal speech. moving all extremities. Assessment/Plan Problem List: (1) AML (acute myeloblastic leukemia) ICD Codes: C92.00 - Acute myeloblastic leukemia, not having achieved remission Plan: 05/15/17: Admission. given Hydrea. [facility] performed Leukapheresis bringing WBC from >100K to 44K. 05/16/17: D1. SONIA-C + Maria Del Rosario. 1 unit pRBC 05/17/17: D2. no transfusion. tolerating chemo 05/18/17: D3. no transfusion. 05/19/17: D4. 1 unit platelets today. No evidence of tumor lysis. Pt finished idarubicin yesterday. Continue SONIA-C. 05/20/17 D5: 1 unit platelets, 2 units PRBC's today. Will add on xanax prn and 1mg xanax at HS scheduled. Continue chemo, continue to monitor blood counts. 05/21/17.D6: No transfusion, start lactulose for Bm, continue chemo 05/22/17:D7 05/23/17: D8: Pt to have final bag chemo hung tonight. Transfuse 1 unit irradiated platelets, 1 unit irradiated PRBC's today. --FISH and cytogenetic studies are pending. 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 --He presented with hyperleukocytosis and acute blast crises. --on Allopurinol 100mg PO BID for prophylaxis (2) Pancytopenia ICD Codes: D61.818 - Other pancytopenia Status: Acute Plan: --transfuse him for hemoglobin of 7 or less. -- irradiated/CMV-negative blood products. --transfuse for platelet count of 10 or less. --Bactrim DS MWF, Levaquin, Diflucan 100mg daily, Acyclovir 400mg PO BID (3) Coagulopathy ICD Codes: D68.9 - Coagulation defect, unspecified Status: Acute Plan: --Check daily fibrinogen levels. --check his coags and LDH and haptoglobin [id number]. Assessment 72y/o male with acute myeloid leukemia with blast crisis. 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 Plan 1: Continue chemotherapy; last bag of SONIA-C to be hung tonight per RN. 2. No evidence of tumor lysis. Will continue to monitor. 3. Continue Amicar for now. Monitor for bleeding. 4. Pt remains neutropenic but afebrile, continue prophylactic antibiotics. Attending Statement The exam, history, and the medical decision-making described in the above note were completed with the assistance of the mid-level provider. I reviewed and agree with the findings presented. I attest that I had a [id number] encounter with the patient on the same day, and personally performed and documented my assessment and findings in the medical record. D#7 AML induction --high risk disease No fevers transfusional support munir rn overnight events reviewed Problem Qualifiers (1) AML (acute myeloblastic leukemia): Qualified Codes: C92.00 - Acute myeloblastic leukemia, not having achieved remission Arin Castillo May 23, 2017 09:49 Shar Ibanez MD May 24, 2017 00:22
--- NOTE | 2017-05-23 13:48 | HHI.PR ---
Subjective Subjective Remarks Resting in the bed Denies any acute pain or shortness of breath Packed RBCs infusing, Constipation resolved (Marcie Summers) Review of Systems Constitutional Constitutional: Fatigue (easily), Weakness (generalized mild) Constitutional Remarks 10 point ROS reviewed any positives noted (Marcie Summers) GI/Abdomen GI/Abdominal Exam: Constipation (resolved, but discussed monitoring and BM at least every 3 days) (Marcie Summers) Hematologic/Lymphatic Heme/Lymph Remarks No rash noted (Marcie Summers) Musculoskeletal MS: Weakness (minimal generalized) (Marcie Summers) Psychiatric Psychiatric: Normal Mood, Anxiety (insomnia) (Marcie Summers) Vitals/Results Vital Signs Vital Signs Date Time Temp Pulse Resp B/P (MAP) Pulse Ox O2 Delivery O2 Flow Rate FiO2 05/23/17 12:00 95.9 75 16 129/77 (94) 96 05/23/17 10:45 96.2 68 18 112/68 98 05/23/17 10:20 97.2 68 18 108/68 96 05/23/17 10:05 97.6 68 18 106/68 95 05/23/17 09:46 96.8 63 18 103/60 98 05/23/17 08:00 97.5 81 16 115/64 (81) 98 05/23/17 04:25 97.8 68 17 113/71 (85) 98 05/23/17 04:03 65 05/23/17 00:25 97.2 75 17 103/63 (76) 98 05/23/17 00:13 69 05/22/17 20:05 67 05/22/17 20:00 97.3 68 18 118/72 (87) 99 05/22/17 16:00 90 05/22/17 16:00 96.4 81 17 108/63 (78) 98 (Marcie Summers) CBC/BMP: 05/23/17 0440 05/23/17 0440 Lab Results Laboratory Tests Test 05/23/17 04:40 White Blood Count 0.1 TH/MM3 Red Blood Count 2.23 MIL/MM3 Hemoglobin 6.5 GM/DL Hematocrit 18.9 % Mean Corpuscular Volume 84.8 FL Mean Corpuscular Hemoglobin 29.0 PG Mean Corpuscular Hemoglobin Concent 34.2 % Red Cell Distribution Width 16.4 % Platelet Count 9 TH/MM3 Mean Platelet Volume 7.0 FL Neutrophils (%) (Auto) 7.2 % Lymphocytes (%) (Auto) 54.4 % Monocytes (%) (Auto) 38.4 % Eosinophils (%) (Auto) 0.0 % Basophils (%) (Auto) 0.0 % Neutrophils # (Auto) 0.0 TH/MM3 Lymphocytes # (Auto) 0.0 TH/MM3 Monocytes # (Auto) 0.0 TH/MM3 Eosinophils # (Auto) 0.0 TH/MM3 Basophils # (Auto) 0.0 TH/MM3 CBC Comment AUTO DIFF Differential Total Cells Counted 20 Neutrophils % (Manual) 20 % Lymphocytes % 60 % Monocytes % 20 % Neutrophils # (Manual) 0.0 TH/MM3 Differential Comment FINAL DIFF MANUAL Platelet Estimate RARE Platelet Morphology Comment NORMAL Haptoglobin 284 MG/DL Prothrombin Time 13.1 SEC Prothromb Time International Ratio 1.2 RATIO Activated Partial Thromboplast Time 30.4 SEC Fibrinogen 357 mg/dL Blood Urea Nitrogen 24 MG/DL Creatinine 0.76 MG/DL Random Glucose 120 MG/DL Total Protein 5.3 GM/DL Albumin 2.4 GM/DL Calcium Level 8.1 MG/DL Phosphorus Level 3.2 MG/DL Magnesium Level 2.3 MG/DL Alkaline Phosphatase 41 U/L Aspartate Amino Transf (AST/SGOT) 33 U/L Alanine Aminotransferase (ALT/SGPT) 186 U/L Lactate Dehydrogenase 260 U/L Total Bilirubin 1.2 MG/DL Sodium Level 135 MEQ/L Potassium Level 4.6 MEQ/L Chloride Level 102 MEQ/L Carbon Dioxide Level 27.7 MEQ/L Anion Gap 5 MEQ/L Estimat Glomerular Filtration Rate 101 ML/MIN Protein Corrected Calcium 8.9 MG/DL Imaging Remarks Last Impressions Chest X-Ray 05/16/17 0700 Signed Impressions: Service Date/Time: Tuesday, May 16, 2017 07:41 - CONCLUSION: The lungs are clear. No evidence of pneumothorax. Ethan Sabillon MD [facility] 05/15/17 0000 Signed Impressions: Service Date/Time: Monday, May 15, 2017 14:57 - CONCLUSION: Normal study. Ejection fraction 72%% Man Burden MD Catheter Placement X-Ray 05/15/17 0000 Signed Impressions: Service Date/Time: Monday, May 15, 2017 17:46 - CONCLUSION: Uncomplicated line placement as above. Man Burden MD Current Medications Administered Medications Medications (Trade) Dose Ordered Sig/Ivelisse Route PRN Reason Start Time Stop Time Status Last Admin Dose Admin Acetaminophen (Tylenol) 650 mg Q4H PRN PO fever>100.4 05/15/17 13:00 05/19/17 15:00 Citalopram Hydrobromide (CeleXA) 20 mg DAILY PO 05/16/17 09:00 05/23/17 09:09 Pantoprazole Sodium (Protonix) 20 mg DAILY PO 05/16/17 09:00 05/23/17 09:10 Ondansetron HCl (Zofran Inj) 4 mg Q6HR PRN IV PUSH nausea 05/15/17 14:00 05/16/17 10:30 Allopurinol (Zyloprim) 100 mg BID PO 05/15/17 21:00 05/23/17 09:16 Levofloxacin (Levaquin) 500 mg DAILY PO 05/16/17 00:30 05/23/17 09:09 Trimethoprim/ Sulfamethoxazole (Bactrim Ds 800-160 Mg) 1 tab MoWeFr@09 PO 05/16/17 09:00 05/23/17 09:09 Fluconazole (Diflucan) 100 mg DAILY PO 05/16/17 09:00 05/23/17 09:10 Acyclovir (Zovirax) 400 mg BID PO 05/16/17 09:00 05/23/17 09:09 Multi-Ingredient Mouthwash/Gargle (Magic Mouthwash Adult Liq) 5 ml QID SWISH-SWAL 05/16/17 13:00 05/23/17 12:53 Megestrol Acetate (Megace Liq) 300 mg DAILY PO 05/16/17 14:00 05/23/17 09:09 Alprazolam (Xanax) 1 mg HS PO 05/20/17 21:00 06/09/17 09:59 05/22/17 21:15 Alprazolam (Xanax) 0.5 mg Q8H PRN PO anxiety 05/20/17 10:15 05/21/17 19:52 Aminocaproic Acid (Amicar) 1,000 mg Q6HR PO 05/21/17 12:00 05/23/17 12:53 Magnesium Hydroxide (Milk Of Leigh Ligodwin) 30 ml DAILY PRN PO CONSTIPATION 05/21/17 11:30 05/21/17 16:54 Cytarabine 200 mg/ Sodium Chloride 500 ml @ 20.833 mls/ hr Q24H IV 05/22/17 14:00 05/24/17 13:59 05/22/17 15:17 (Marcie Summers) Physical Exam General General Appearance: Well Developed, Well Nourished, Comfortable, Pale (mild), Anxious (much more controlled) (Marcie Summers) Eyes Eye Exam: Pupils Reactive (Marcie Summers) Ears & Nose Ears & Nose Exam: Nasal Mucosa [place] (pale) (Marcie Summers) Throat Throat Exam: Oral Mucosa [place] & Moist (pale) (Marcie Summers) Neck Neck Exam: Neck Supple (Marcie Summers) Pulmonary Resp Exam: Clear Bilaterally, No Distress (Marcie SummersP) Cardiology CV Exam: Regular (Marcie SummersP) Gastrointestinal/Abdomen GI Exam: Soft, Non-Tender, Bowel Sounds Present (Marcie SummersP) Hematologic/Lymphatic Heme Remarks No rash noted (Marcie Summers) Musculoskeletal MS Exam: Joints Intact (Marcie Summers) Integumentary Skin Exam: Warm, Dry (Marcie Summers) Extremeties Extremities Exam: No Edema (Marcie SummersP) Neurologic Neuro Exam: Alert, Awake, Oriented, Speech Clear, Moving All Extremities (Marcie SummersP) PUD Prophylasis PUD Remarks PUD prophylaxis (Marcie Summers) Assessment/Plan Assessment/Plan Vital signs reviewed, afebrile, BP trends improving, labs in the morning Labs reviewed, platelets 9, hemoglobin 6.5, APTT 30.4 LDL uric acid ordered per oncology Encouraged Nutrition , eating outside food and taking by mouth fluids well Bowel regimen, constipation, now resolved continue to monitor Encourage activity, especially around in room and up in chair to maintain his strength is much as possible Acute myeloblastic leukemia with pancytopenia, 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, blast crisis, will receive her last dose of chemotherapy tomorrow then we'll have brief rest. And reevaluation Appreciate oncology input and plan of care monitor labs, patient denies any acute pain has some generalized weakness and tired sensation, but otherwise feeling good GERD with [place] esophagus Protonix Anxiety and depression, controlled much better with Xanax at night and when necessary medical management ,Celexa 20 mg by mouth daily No SCDs or anticoagulation recommended at this time due to thrombocytopenia Supportive care to patient Discussed with patient and his Discussed with Dr. Santos, seen on his behalf Discussed with nurse (Marcie Summers) Assessment/Plan Patient seen and examined as above [id number] time spent with patient Labs reviewed Medications reviewed Plan of care discussed with STUDY MANAGER as above Discussed with patient Labs for tomorrow (Gold Santos MD) Marcie Summers May 23, 2017 13:48 Gold Santos MD May 23, 2017 14:54
[2017-05-23] MEDS ORDERED: GRANISETRON INJ 1 MG, DEXAMETHASONE INJ 20 MG in SODIUM CHLORIDE 0.9% INJ 50 ML IV SCH (15:30)
[2017-05-23] MEDS: CYTARABINE IV SCH (17:28)
[2017-05-23] MEDS: SODIUM CHLORID 0.9% IV SCH (17:28)
[2017-05-23] MEDS: ALPRAZolam 1 MG TAB PO SCH (19:55)
[2017-05-23] MEDS: ALPRAZolam 0.5 MG TAB PO PRN (23:22)
[2017-05-24] VITALS (13 sets, daily range): BP systolic 107–118; BP diastolic 63–70; PULSE 65–91; RESP 16–18; TEMP 96–99.4; O2SAT 98–100
[2017-05-24] MEDS: AMINOCAPROIC ACID 500 MG TAB PO SCH ×4 (04:49→23:52)
[2017-05-24 06:19] LABS: MEAN CORPUSCULAR HEMOGLOBIN 28.9 PG (27.0-34.0); MEAN CORPUSCULAR HGB CONC 33.9 % (32.0-36.0); RED CELL DISTRIBUTION WIDTH 15.9 % (11.6-17.2); WHITE BLOOD COUNT 0.1 TH/MM3 (4.0-11.0)
[2017-05-24 06:21] LABS: HEMO FLAGS AUTO DIFF
[2017-05-24 06:22] LABS: HEMATOCRIT 20.4 % (39.0-51.0); PLATELET COUNT 13 TH/MM3 (150-450)
[2017-05-24 06:46] LABS: ANION GAP 6 MEQ/L (5-15); AST (GOT) 17 U/L (15-37); BICARBONATE 26.9 MEQ/L (21.0-32.0); BLOOD UREA NITROGEN 23 MG/DL (7-18); CHLORIDE 100 MEQ/L (98-107); GLOMERULAR FILTRATION RATE 92 ML/MIN (>89); MAGNESIUM 2.2 MG/DL (1.5-2.5); POTASSIUM 4.6 MEQ/L (3.5-5.1); SODIUM (NA) 133 MEQ/L (136-145)
[2017-05-24 06:48] LABS: ALT (GPT) 127 U/L (12-78); URIC ACID 3.3 MG/DL (2.6-7.2)
[2017-05-24 06:50] LABS: ALKALINE PHOSPHATASE 43 U/L (45-117); TOTAL BILIRUBIN ADULT 1.4 MG/DL (0.2-1.0)
[2017-05-24 09:16] LABS: POLYS (SEG NEUTROPHILS) 10 % (16-70); WBC DIFF SAMPLE 10
[2017-05-24 09:19] LABS: PLATELET ESTIMATE SMEAR RARE (NORMAL); PLATELET MORPHOLOGY NORMAL (NORMAL)
[2017-05-24 09:21] LABS: SCAN/DIFF FINAL DIFF MANUAL
[2017-05-24] MEDS: CITALOPRAM HYDROBROMIDE 20 MG TAB PO SCH (09:37)
[2017-05-24] MEDS: ALLOPURINOL 100 MG TAB PO SCH ×2 (09:37→19:59)
[2017-05-24] MEDS: FLUCONAZOLE 100 MG TAB PO SCH (09:37)
[2017-05-24] MEDS: MEGESTROL ACETATE SUSP 400 MG/10 ML CUP PO SCH (09:37)
[2017-05-24] MEDS: PANTOPRAZOLE SOD 20 MG DELAYED RELEASE TAB PO SCH (09:37)
[2017-05-24] MEDS: NYSTAT/DIPHENHY/LIDO MOUTHWASH (Adult) 120ML SWISH-SWAL SCH ×4 (09:38→20:01)
[2017-05-24] MEDS: LEVOFLOXACIN 500 MG TAB PO SCH (09:38)
[2017-05-24] MEDS: ACYCLOVIR 200 MG CAP PO SCH ×2 (09:38→19:57)
--- NOTE | 2017-05-24 10:21 | PD.ONC.PN ---
Subjective Subjective Remarks Afebrile Patient denies any acute complaints "I have no pain, I feel pretty good" Objective Data Date Time Temp Pulse Resp B/P (MAP) Pulse Ox O2 Delivery O2 Flow Rate FiO2 05/24/17 08:00 96.4 67 18 111/70 (84) 98 05/24/17 07:58 71 05/24/17 04:03 69 05/24/17 04:00 96.0 69 16 108/67 (81) 99 05/24/17 00:28 65 05/24/17 00:00 97.3 71 16 109/66 (80) 98 05/23/17 20:50 96.2 86 18 108/65 (79) 98 05/23/17 20:04 85 05/23/17 16:00 98.1 74 16 117/65 (82) 100 05/23/17 15:45 97.8 72 18 118/68 96 05/23/17 15:45 98.6 78 18 112/72 98 05/23/17 15:32 98.9 65 18 108/65 98 05/23/17 12:00 95.9 75 16 129/77 (94) 96 05/23/17 10:45 96.2 68 18 112/68 98 05/23/17 10:20 97.2 68 18 108/68 96 05/24/17 05/24/17 05/24/17 07:00 15:00 23:00 Intake Total 500 ml Balance 500 ml Result Diagram: 05/24/17 0420 05/24/17 042 Laboratory Results Laboratory Tests Test 05/24/17 04:20 White Blood Count 0.1 TH/MM3 Red Blood Count 2.40 MIL/MM3 Hemoglobin 6.9 GM/DL Hematocrit 20.4 % Mean Corpuscular Volume 85.0 FL Mean Corpuscular Hemoglobin 28.9 PG Mean Corpuscular Hemoglobin Concent 33.9 % Red Cell Distribution Width 15.9 % Platelet Count 13 TH/MM3 Mean Platelet Volume 7.6 FL Neutrophils # (Auto) TH/MM3 CBC Comment AUTO DIFF Differential Total Cells Counted 10 Neutrophils % (Manual) 10 % Lymphocytes % 80 % Monocytes % 10 % Neutrophils # (Manual) 0.0 TH/MM3 Differential Comment FINAL DIFF MANUAL Platelet Estimate RARE Platelet Morphology Comment NORMAL Blood Urea Nitrogen 23 MG/DL Creatinine 0.83 MG/DL Random Glucose 120 MG/DL Total Protein 5.3 GM/DL Albumin 2.4 GM/DL Calcium Level 8.1 MG/DL Phosphorus Level 2.8 MG/DL Magnesium Level 2.2 MG/DL Uric Acid 3.3 MG/DL Alkaline Phosphatase 43 U/L Aspartate Amino Transf (AST/SGOT) 17 U/L Alanine Aminotransferase (ALT/SGPT) 127 U/L Total Bilirubin 1.4 MG/DL Sodium Level 133 MEQ/L Potassium Level 4.6 MEQ/L Chloride Level 100 MEQ/L Carbon Dioxide Level 26.9 MEQ/L Anion Gap 6 MEQ/L Estimat Glomerular Filtration Rate 92 ML/MIN Administered Medications Medications (Trade) Dose Ordered Sig/Ivelisse Route PRN Reason Start Time Stop Time Status Last Admin Dose Admin Acetaminophen (Tylenol) 650 mg Q4H PRN PO fever>100.4 05/15/17 13:00 05/19/17 15:00 Citalopram Hydrobromide (CeleXA) 20 mg DAILY PO 05/16/17 09:00 05/24/17 09:37 Pantoprazole Sodium (Protonix) 20 mg DAILY PO 05/16/17 09:00 05/24/17 09:37 Ondansetron HCl (Zofran Inj) 4 mg Q6HR PRN IV PUSH nausea 05/15/17 14:00 05/16/17 10:30 Allopurinol (Zyloprim) 100 mg BID PO 05/15/17 21:00 05/24/17 09:37 Levofloxacin (Levaquin) 500 mg DAILY PO 05/16/17 00:30 05/24/17 09:38 Trimethoprim/ Sulfamethoxazole (Bactrim Ds 800-160 Mg) 1 tab MoWeFr@09 PO 05/16/17 09:00 05/23/17 09:09 Fluconazole (Diflucan) 100 mg DAILY PO 05/16/17 09:00 05/24/17 09:37 Acyclovir (Zovirax) 400 mg BID PO 05/16/17 09:00 05/24/17 09:38 Multi-Ingredient Mouthwash/Gargle (Magic Mouthwash Adult Liq) 5 ml QID SWISH-SWAL 05/16/17 13:00 05/24/17 09:38 Megestrol Acetate (Megace Liq) 300 mg DAILY PO 05/16/17 14:00 05/24/17 09:37 Alprazolam (Xanax) 1 mg HS PO 05/20/17 21:00 06/09/17 09:59 05/23/17 19:55 Alprazolam (Xanax) 0.5 mg Q8H PRN PO anxiety 05/20/17 10:15 05/23/17 23:22 Aminocaproic Acid (Amicar) 1,000 mg Q6HR PO 05/21/17 12:00 05/24/17 04:49 Magnesium Hydroxide (Milk Of Leigh Spencer) 30 ml DAILY PRN PO CONSTIPATION 05/21/17 11:30 05/21/17 16:54 Cytarabine 200 mg/ Sodium Chloride 500 ml @ 20.833 mls/ hr Q24H IV 05/22/17 14:00 05/24/17 13:59 05/23/17 17:28 Objective Remarks GENERAL: Pleasant middle aged male, upright in bed in [place]. SKIN: Warm and dry. Scattered petechiae on legs. HEAD: Normocephalic. EYES: No scleral icterus. No injection or drainage. NECK: Supple, trachea midline. CARDIOVASCULAR: Regular rate and rhythm RESPIRATORY: Breath sounds equal bilaterally. No accessory muscle use. GASTROINTESTINAL: Abdomen soft, non-tender, nondistended. EXTREMITIES: No cyanosis NEUROLOGICAL: Awake and alert, normal speech. moving all extremities. Assessment/Plan Problem List: (1) AML (acute myeloblastic leukemia) ICD Codes: C92.00 - Acute myeloblastic leukemia, not having achieved remission Plan: 05/15/17: Admission. given Hydrea. [facility] performed Leukapheresis bringing WBC from >100K to 44K. 05/16/17: D1. HARRISON-C + Maria Del Rosario. 1 unit pRBC 05/17/17: D2. no transfusion. tolerating chemo 05/18/17: D3. no transfusion. 05/19/17: D4. 1 unit platelets today. No evidence of tumor lysis. Pt finished idarubicin yesterday. Continue HARRISON-C. 05/20/17 D5: 1 unit platelets, 2 units PRBC's today. Will add on xanax prn and 1mg xanax at HS scheduled. Continue chemo, continue to monitor blood counts. 05/21/17.D6: No transfusion, start lactulose for Bm, continue chemo 05/22/17:D7 05/23/17: D8: Pt to have final bag chemo hung tonight. Transfuse 1 unit irradiated platelets, 1 unit irradiated PRBC's today. 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 --He presented with hyperleukocytosis and acute blast crises. --on Allopurinol 100mg PO BID for prophylaxis (2) Pancytopenia ICD Codes: D61.818 - Other pancytopenia Status: Acute Plan: --transfuse him for hemoglobin of 7 or less. -- irradiated/CMV-negative blood products. --transfuse for platelet count of 10 or less. --Bactrim DS MWF, Levaquin, Diflucan 100mg daily, Acyclovir 400mg PO BID (3) Coagulopathy ICD Codes: D68.9 - Coagulation defect, unspecified Status: Acute Plan: --Check daily fibrinogen levels. --check his coags and LDH and haptoglobin [id number]. Assessment 72y/o male with acute myeloid leukemia with blast crisis. 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 Plan 1: Patient currently receiving last bag of harrison-C. 2. Electrolytes stable. No evidence of TLS 3. Monitor for bleeding 4. Monitor for fevers; continue supportive care Problem Qualifiers (1) AML (acute myeloblastic leukemia): Qualified Codes: C92.00 - Acute myeloblastic leukemia, not having achieved remission Arin Castillo May 24, 2017 10:21
--- NOTE | 2017-05-24 10:53 | HHI.PR ---
Subjective Remarks no cp no sob no fever appetite fair fatigue with inc. activity no acute changes overnight tremors hands Objective Objective Results - Vital Signs Date Time Temp Pulse Resp B/P (MAP) Pulse Ox O2 Delivery O2 Flow Rate FiO2 05/24/17 08:00 96.4 67 18 111/70 (84) 98 05/24/17 07:58 71 05/24/17 04:03 69 05/24/17 04:00 96.0 69 16 108/67 (81) 99 05/24/17 00:28 65 05/24/17 00:00 97.3 71 16 109/66 (80) 98 05/23/17 20:50 96.2 86 18 108/65 (79) 98 05/23/17 20:04 85 05/23/17 16:00 98.1 74 16 117/65 (82) 100 05/23/17 15:45 97.8 72 18 118/68 96 05/23/17 15:45 98.6 78 18 112/72 98 05/23/17 15:32 98.9 65 18 108/65 98 05/23/17 12:00 95.9 75 16 129/77 (94) 96 I/O 05/23/17 05/23/17 05/23/17 05/24/17 05/24/17 05/24/17 07:00 15:00 23:00 07:00 15:00 23:00 Intake Total 480 ml 700 ml 2260 ml 500 ml Balance 480 ml 700 ml 2260 ml 500 ml Intake Oral 480 ml 1680 ml 500 ml Packed Cells 400 ml Platelets 580 ml Blood Product IV Normal Saline Flush 300 ml # Voids 3 5 # Bowel Movements 1 Result Diagram: 05/24/17 0420 05/24/17 0420 Imaging Last Impressions Chest X-Ray 05/16/17 0700 Signed Impressions: Service Date/Time: Tuesday, May 16, 2017 07:41 - CONCLUSION: The lungs are clear. No evidence of pneumothorax. Ethan Sabillon MD [facility] 05/15/17 0000 Signed Impressions: Service Date/Time: Monday, May 15, 2017 14:57 - CONCLUSION: Normal study. Ejection fraction 72%% Man Burden MD Catheter Placement X-Ray 05/15/17 0000 Signed Impressions: Service Date/Time: Monday, May 15, 2017 17:46 - CONCLUSION: Uncomplicated line placement as above. Man Burden MD Other Results Laboratory Tests Test 05/24/17 04:20 White Blood Count 0.1 Red Blood Count 2.40 Hemoglobin 6.9 Hematocrit 20.4 Mean Corpuscular Volume 85.0 Mean Corpuscular Hemoglobin 28.9 Mean Corpuscular Hemoglobin Concent 33.9 Red Cell Distribution Width 15.9 Platelet Count 13 Mean Platelet Volume 7.6 Neutrophils # (Auto) CBC Comment AUTO DIFF Differential Total Cells Counted 10 Neutrophils % (Manual) 10 Lymphocytes % 80 Monocytes % 10 Neutrophils # (Manual) 0.0 Differential Comment FINAL DIFF MANUAL Platelet Estimate RARE Platelet Morphology Comment NORMAL Blood Urea Nitrogen 23 Creatinine 0.83 Random Glucose 120 Total Protein 5.3 Albumin 2.4 Calcium Level 8.1 Phosphorus Level 2.8 Magnesium Level 2.2 Uric Acid 3.3 Alkaline Phosphatase 43 Aspartate Amino Transf (AST/SGOT) 17 Alanine Aminotransferase (ALT/SGPT) 127 Total Bilirubin 1.4 Sodium Level 133 Potassium Level 4.6 Chloride Level 100 Carbon Dioxide Level 26.9 Anion Gap 6 Estimat Glomerular Filtration Rate 92 ROS General: Fatigue HEENT: No: Sore Throat, Dysphagia Cardiac: No: Chest Pain, Edema, Palpitations Pulmonary: No: Cough, SOB, Wheezing GI: No: Abdominal Pain, BM, Diarrhea, N/V /TAX AUDITOR: No: Dysuria, Urgency Neuro/MS: Other (tremors ), No: Lightheaded, Confusion Psych: No: Anxiety, Depression Skin: No: Itching, Rash Physical Exam Physical Exam GENERAL: This is a well-nourished, well-developed patient, in no apparent distress. SKIN: Petechial rash noted to bilateral pretibial areas. HEAD: Atraumatic. Normocephalic. No temporal or scalp tenderness. EYES: Pupils equal round and reactive. Extraocular motions intact. No scleral icterus. No injection or drainage. ENT: Nose without bleeding, purulent drainage or septal hematoma. Throat without erythema, tonsillar hypertrophy or exudate. Uvula midline. Airway patent. NECK: Trachea midline. No JVD or lymphadenopathy. Supple, nontender, no meningeal signs. CARDIOVASCULAR: Regular rate and rhythm without murmurs, gallops, or rubs. RESPIRATORY: Clear to auscultation. Breath sounds equal bilaterally. No wheezes , rales, or rhonchi. Port-A-Cath noted to left chest wall area. GASTROINTESTINAL: Abdomen soft, non-tender, nondistended. No hepato-splenomegaly , or palpable masses. No guarding. MUSCULOSKELETAL: Extremities without clubbing, cyanosis, or edema. No joint tenderness, effusion, or edema noted. No calf tenderness. Negative Homans sign bilaterally. NEUROLOGICAL: Awake, alert oriented 3. No Focal deficits. 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 Admitted for chemotherapy induction. Acute myeloblastic leukemia Pancytopenia -Dr. Ibanez managing -Continue with Bactrim Levaquin Diflucan and acyclovir -completed chemo 05/23 -continue with supportive blood product infusion as needed, Hgb 6.9/20.4, to receive PRBC today Coagulopathy -Monitor for bleeding -Daily fibrinogen levels per oncology. 357 05/23 GERD [place] esophagus -Continue Protonix 20 mg by mouth daily Anxiety and depression -Continue with Celexa 20 mg by mouth daily -continue Xanax PRN Familial tremor, stable -continue with medical management No SCDs or anticoagulation recommended at this time due to thrombocytopenia Continue Protonix for GI prophylaxis Inc activity as tolerated bowel regimen monitor CBC closely. D/W RN D/W pt D/W Dr. Santos Patient was seen by myself and Dr. Santos, this note is written on his behalf Problem Qualifiers (1) AML (acute myeloblastic leukemia): Qualified Codes: C92.00 - Acute myeloblastic leukemia, not having achieved remission Viola Sanon May 24, 2017 10:53
[2017-05-24] MEDS: ALPRAZolam 1 MG TAB PO SCH (19:58)
[2017-05-25] VITALS (10 sets, daily range): BP systolic 97–116; BP diastolic 58–72; PULSE 59–120; RESP 18–22; TEMP 97.1–99.1; O2SAT 92–99
[2017-05-25] MEDS: AMINOCAPROIC ACID 500 MG TAB PO SCH ×4 (05:50→23:45)
[2017-05-25 06:23] LABS: HEMATOCRIT 25.9 % (39.0-51.0); MEAN CELL VOLUME 85.7 FL (80.0-100.0); MEAN CORPUSCULAR HGB CONC 33.9 % (32.0-36.0); RED BLOOD COUNT 3.02 MIL/MM3 (4.50-5.90); RED CELL DISTRIBUTION WIDTH 15.4 % (11.6-17.2); WHITE BLOOD COUNT 0.1 TH/MM3 (4.0-11.0)
[2017-05-25 06:33] LABS: HEMO FLAGS AUTO DIFF; PLATELET COUNT 7 TH/MM3 (150-450)
[2017-05-25 07:12] LABS: APTT (PATIENT) 28.3 SEC (24.3-30.1); INTERNATIONAL NORMALIZED RATIO 1.2 RATIO; PROTHROMBIN TIME - PATIENT 13.8 SEC (9.8-11.6)
[2017-05-25 08:15] LABS: PLATELET ESTIMATE SMEAR RARE (NORMAL); PLATELET MORPHOLOGY NORMAL (NORMAL); SCAN/DIFF FINAL DIFF MANUAL; WBC DIFF SAMPLE 15
[2017-05-25 08:18] LABS: ROULEAUX PRESENT (NORMAL)
[2017-05-25] MEDS: NYSTAT/DIPHENHY/LIDO MOUTHWASH (Adult) 120ML SWISH-SWAL SCH ×4 (08:36→20:02)
[2017-05-25] MEDS: ALPRAZolam 0.5 MG TAB PO PRN (08:36)
[2017-05-25] MEDS: ALLOPURINOL 100 MG TAB PO SCH (08:37)
[2017-05-25] MEDS: MEGESTROL ACETATE SUSP 400 MG/10 ML CUP PO SCH (08:37)
[2017-05-25] MEDS: SULFAMETHOXAZOLE-TRIMETHOPRIM DS 800-160 MG TAB PO SCH (08:37)
[2017-05-25] MEDS: ACYCLOVIR 200 MG CAP PO SCH ×2 (08:37→20:02)
[2017-05-25] MEDS: PANTOPRAZOLE SOD 20 MG DELAYED RELEASE TAB PO SCH (08:37)
[2017-05-25] MEDS: CITALOPRAM HYDROBROMIDE 20 MG TAB PO SCH (08:37)
[2017-05-25] MEDS: LEVOFLOXACIN 500 MG TAB PO SCH (08:37)
[2017-05-25] MEDS: FLUCONAZOLE 100 MG TAB PO SCH (08:37)
[2017-05-25 08:58] LABS: ALT (GPT) 78 U/L (12-78); ANION GAP 10 MEQ/L (5-15); AST (GOT) 9 U/L (15-37); BICARBONATE 22.5 MEQ/L (21.0-32.0); BLOOD UREA NITROGEN 23 MG/DL (7-18); CHLORIDE 101 MEQ/L (98-107); GLOMERULAR FILTRATION RATE 70 ML/MIN (>89); POTASSIUM 3.9 MEQ/L (3.5-5.1); SODIUM (NA) 133 MEQ/L (136-145)
[2017-05-25 09:05] LABS: ALKALINE PHOSPHATASE 43 U/L (45-117); LDH SERUM 167 U/L (87-241); TOTAL BILIRUBIN ADULT 3.5 MG/DL (0.2-1.0)
--- NOTE | 2017-05-25 10:32 | HHI.PR ---
Subjective Remarks Patient states he doesn't feel well today, brain feels foggy, feels confused Complains of significant left knee pain, cannot flex or extend, painful even to minimal palpation Left knee is slightly more swollen, warm to touch Denies any recent injury, indicates that yesterday he was getting up to the bathroom without any problems Per nursing, he was found sitting on the toilet overnight and could not stand but there was no reported falls Also complaining of right shoulder pain, increased with passive range of motion. I can denies any injury He's not very clear when the symptoms started, he thinks he may be 2-3 days. Objective Objective Results - Vital Signs Date Time Temp Pulse Resp B/P (MAP) Pulse Ox O2 Delivery O2 Flow Rate FiO2 05/25/17 08:00 98.6 96 20 101/58 (72) 98 05/25/17 04:00 97.1 120 22 116/68 (84) 98 05/25/17 00:50 99.1 94 18 112/65 (81) 98 05/24/17 21:00 81 05/24/17 20:50 98.2 83 18 116/67 (83) 100 05/24/17 16:02 97.7 90 18 108/68 (81) 99 05/24/17 14:36 98.5 72 16 118/70 100 05/24/17 13:54 99.4 18 114/63 98 05/24/17 12:44 87 05/24/17 11:58 97.8 91 18 107/67 (80) 99 I/O 05/24/17 05/24/17 05/24/17 05/25/17 05/25/17 05/25/17 07:00 15:00 23:00 07:00 15:00 23:00 Intake Total 500 ml 490 ml 670 ml 500 ml Balance 500 ml 490 ml 670 ml 500 ml Intake Oral 500 ml 480 ml 250 ml 500 ml Packed Cells 400 ml Blood Product IV Normal Saline Flush 10 ml 20 ml # Voids 2 4 # Bowel Movements 1 4 Result Diagram: 05/25/17 0548 05/25/17 0548 Imaging Last Impressions Chest X-Ray 05/16/17 0700 Signed Impressions: Service Date/Time: Tuesday, May 16, 2017 07:41 - CONCLUSION: The lungs are clear. No evidence of pneumothorax. Ethan Sabillon MD [facility] 05/15/17 0000 Signed Impressions: Service Date/Time: Monday, May 15, 2017 14:57 - CONCLUSION: Normal study. Ejection fraction 72%% Man Burden MD Catheter Placement X-Ray 05/15/17 0000 Signed Impressions: Service Date/Time: Monday, May 15, 2017 17:46 - CONCLUSION: Uncomplicated line placement as above. Man Burden MD Other Results Laboratory Tests Test 05/25/17 05:48 05/25/17 06:38 White Blood Count 0.1 Red Blood Count 3.02 Hemoglobin 8.8 Hematocrit 25.9 Mean Corpuscular Volume 85.7 Mean Corpuscular Hemoglobin 29.0 Mean Corpuscular Hemoglobin Concent 33.9 Red Cell Distribution Width 15.4 Platelet Count 7 Mean Platelet Volume 7.3 CBC Comment AUTO DIFF Differential Total Cells Counted 15 Lymphocytes % 100 Neutrophils # (Manual) 0.0 Differential Comment FINAL DIFF MANUAL Platelet Estimate RARE Platelet Morphology Comment NORMAL Rouleau PRESENT Red Cell Morphology Comment NORMAL Haptoglobin 318 Blood Urea Nitrogen 23 Creatinine 1.05 Random Glucose 117 Total Protein 5.2 Albumin 2.2 Calcium Level 8.4 Phosphorus Level 2.7 Magnesium Level 2.0 Alkaline Phosphatase 43 Aspartate Amino Transf (AST/SGOT) 9 Alanine Aminotransferase (ALT/SGPT) 78 Lactate Dehydrogenase 167 Total Bilirubin 3.5 Sodium Level 133 Potassium Level 3.9 Chloride Level 101 Carbon Dioxide Level 22.5 Anion Gap 10 Estimat Glomerular Filtration Rate 70 Prothrombin Time 13.8 Prothromb Time International Ratio 1.2 Activated Partial Thromboplast Time 28.3 ROS General: Fatigue Neuro/MS: Confusion, Other (left knee and right shoulder pain.) Physical Exam Physical Exam GENERAL: This is a well-nourished, well-developed patient, in no apparent distress. SKIN: Petechial rash noted to bilateral pretibial areas. Skin pale and cool to touch HEAD: Atraumatic. Normocephalic. No temporal or scalp tenderness. EYES: Pupils equal round and reactive. Extraocular motions intact. No scleral icterus. No injection or drainage. ENT: Nose without bleeding, purulent drainage or septal hematoma. Throat without erythema, tonsillar hypertrophy or exudate. Uvula midline. Airway patent. NECK: Trachea midline. No JVD or lymphadenopathy. Supple, nontender, no meningeal signs. CARDIOVASCULAR: Regular rate and rhythm without murmurs, gallops, or rubs. RESPIRATORY: Clear to auscultation. Breath sounds equal bilaterally. No wheezes , rales, or rhonchi. Port-A-Cath noted to left chest wall area. GASTROINTESTINAL: Abdomen soft, non-tender, nondistended. No hepato-splenomegaly , or palpable masses. No guarding. MUSCULOSKELETAL: Left knee is slightly more swollen, warm to touch. Resisted any movement, unable to flex or extend. Right shoulder tender, no erythema noted. No deformity. Able to bring up right arm up to eye level,very painful with abduction. NEUROLOGICAL: Awake, alert oriented 2, forgetful. No focal deficit. 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 Admitted for chemotherapy induction. Acute myeloblastic leukemia Pancytopenia -Dr. Ibanez managing -Continue with Bactrim Levaquin Diflucan and acyclovir -completed chemo 05/23 -plat 7 today, will receive plat. today Coagulopathy -Monitor for bleeding - fibrinogen levels per oncology. 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 septic joint, effusion -Xray left knee and right shoulder today -uric acid yesterday ok. -on Allopurinol 100 mg po bid -d/w H. TEENA Chavez , will check MRI left knee -add [place] [facility] PRN No SCDs or anticoagulation recommended at this time due to thrombocytopenia Continue Protonix for GI prophylaxis Inc activity as tolerated bowel regimen monitor CBC closely. D/W RN D/W pt D/W Dr. Santos/Goldie Chavez PA Patient was seen by myself and Dr. Santos, this note is written on his behalf Problem Qualifiers (1) AML (acute myeloblastic leukemia): Qualified Codes: C92.00 - Acute myeloblastic leukemia, not having achieved remission Viola Sanon May 25, 2017 10:32
[2017-05-25] MEDS: ACETAMINOPHEN/HYDROcodone 325 MG/7.5 MG TAB PO PRN ×2 (10:54→20:02)
--- NOTE | 2017-05-25 11:01 | PD.ONC.PN ---
Subjective Subjective Remarks Afebrile overnight. Patient complaining of severe pain in the left knee. Denies any injury or trauma. States yesterday at some point, although he cannot pinpoint the specific time, he started noticed pain and swelling in the left knee. He is now unable to put any weigh on the knee and cannot bend the knee actively or passively. he has also noticed some pain in the right shoulder over the last three days. He is able to passively move the right shoulder. No loss of feeling or weakness. Objective Data Date Time Temp Pulse Resp B/P (MAP) Pulse Ox O2 Delivery O2 Flow Rate FiO2 05/25/17 08:00 98.6 96 20 101/58 (72) 98 05/25/17 04:00 97.1 120 22 116/68 (84) 98 05/25/17 00:50 99.1 94 18 112/65 (81) 98 05/24/17 21:00 81 05/24/17 20:50 98.2 83 18 116/67 (83) 100 05/24/17 16:02 97.7 90 18 108/68 (81) 99 05/24/17 14:36 98.5 72 16 118/70 100 05/24/17 13:54 99.4 18 114/63 98 05/24/17 12:44 87 05/24/17 11:58 97.8 91 18 107/67 (80) 99 05/25/17 05/25/17 05/25/17 07:00 15:00 23:00 Intake Total 500 ml Balance 500 ml Result Diagram: 05/25/17 0548 05/25/17 0548 Laboratory Results Laboratory Tests Test 05/25/17 05:48 05/25/17 06:38 White Blood Count 0.1 TH/MM3 Red Blood Count 3.02 MIL/MM3 Hemoglobin 8.8 GM/DL Hematocrit 25.9 % Mean Corpuscular Volume 85.7 FL Mean Corpuscular Hemoglobin 29.0 PG Mean Corpuscular Hemoglobin Concent 33.9 % Red Cell Distribution Width 15.4 % Platelet Count 7 TH/MM3 Mean Platelet Volume 7.3 FL CBC Comment AUTO DIFF Differential Total Cells Counted 15 Lymphocytes % 100 % Neutrophils # (Manual) 0.0 TH/MM3 Differential Comment FINAL DIFF MANUAL Platelet Estimate RARE Platelet Morphology Comment NORMAL Rouleau PRESENT Red Cell Morphology Comment NORMAL Haptoglobin 318 MG/DL Blood Urea Nitrogen 23 MG/DL Creatinine 1.05 MG/DL Random Glucose 117 MG/DL Total Protein 5.2 GM/DL Albumin 2.2 GM/DL Calcium Level 8.4 MG/DL Phosphorus Level 2.7 MG/DL Magnesium Level 2.0 MG/DL Alkaline Phosphatase 43 U/L Aspartate Amino Transf (AST/SGOT) 9 U/L Alanine Aminotransferase (ALT/SGPT) 78 U/L Lactate Dehydrogenase 167 U/L Total Bilirubin 3.5 MG/DL Sodium Level 133 MEQ/L Potassium Level 3.9 MEQ/L Chloride Level 101 MEQ/L Carbon Dioxide Level 22.5 MEQ/L Anion Gap 10 MEQ/L Estimat Glomerular Filtration Rate 70 ML/MIN Prothrombin Time 13.8 SEC Prothromb Time International Ratio 1.2 RATIO Activated Partial Thromboplast Time 28.3 SEC Administered Medications Medications (Trade) Dose Ordered Sig/Ivelisse Route PRN Reason Start Time Stop Time Status Last Admin Dose Admin Acetaminophen (Tylenol) 650 mg Q4H PRN PO fever>100.4 05/15/17 13:00 05/19/17 15:00 Citalopram Hydrobromide (CeleXA) 20 mg DAILY PO 05/16/17 09:00 05/25/17 08:37 Pantoprazole Sodium (Protonix) 20 mg DAILY PO 05/16/17 09:00 05/25/17 08:37 Ondansetron HCl (Zofran Inj) 4 mg Q6HR PRN IV PUSH nausea 05/15/17 14:00 05/16/17 10:30 Allopurinol (Zyloprim) 100 mg BID PO 05/15/17 21:00 05/25/17 08:37 Levofloxacin (Levaquin) 500 mg DAILY PO 05/16/17 00:30 05/25/17 08:37 Trimethoprim/ Sulfamethoxazole (Bactrim Ds 800-160 Mg) 1 tab MoWeFr@09 PO 05/16/17 09:00 05/25/17 08:37 Fluconazole (Diflucan) 100 mg DAILY PO 05/16/17 09:00 05/25/17 08:37 Acyclovir (Zovirax) 400 mg BID PO 05/16/17 09:00 05/25/17 08:37 Multi-Ingredient Mouthwash/Gargle (Magic Mouthwash Adult Liq) 5 ml QID SWISH-SWAL 05/16/17 13:00 05/25/17 08:36 Megestrol Acetate (Megace Liq) 300 mg DAILY PO 05/16/17 14:00 05/25/17 08:37 Alprazolam (Xanax) 1 mg HS PO 05/20/17 21:00 06/09/17 09:59 05/24/17 19:58 Alprazolam (Xanax) 0.5 mg Q8H PRN PO anxiety 05/20/17 10:15 05/25/17 08:36 Aminocaproic Acid (Amicar) 1,000 mg Q6HR PO 05/21/17 12:00 05/25/17 05:50 Magnesium Hydroxide (Milk Of Magnesia Liq) 30 ml DAILY PRN PO CONSTIPATION 05/21/17 11:30 05/21/17 16:54 Objective Remarks GENERAL: Elderly male sitting up in bed in nad. SKIN: Warm and dry. a few bruises noted on left arm HEAD: Normocephalic. EYES: No injection or drainage. NECK: Supple, trachea midline. CARDIOVASCULAR: Regular rate and rhythm RESPIRATORY: Breath sounds equal bilaterally. No accessory muscle use. GASTROINTESTINAL: Abdomen soft, non-tender, nondistended. EXTREMITIES: No cyanosis. left knee swollen. tenderness to palpation along joint lines. there is no erythema or skin changes. unable to actively or passively extend or flex the knee. Right shoulder with no swelling or skin changes. able to passively flex shoulder. will not allow any other movements. NEUROLOGICAL: No obvious focal deficit. Awake, alert, and oriented x3. Assessment/Plan Problem List: (1) AML (acute myeloblastic leukemia) ICD Codes: C92.00 - Acute myeloblastic leukemia, not having achieved remission Plan: 05/15/17: Admission. given Hydrea. [facility] performed Leukapheresis bringing WBC from >100K to 44K. 05/16/17: D1. SONIA-C + [facility] [place] [facility]. 1 unit pRBC 05/17/17: D2. no transfusion. tolerating chemo 05/18/17: D3. no transfusion. 05/19/17: D4. 1 unit platelets today. No evidence of tumor lysis. Pt finished idarubicin yesterday. Continue SONIA-C. 05/20/17 D5: 1 unit platelets, 2 units PRBC's today. Will add on xanax prn and 1mg xanax at HS scheduled. Continue chemo, continue to monitor blood counts. 05/21/17.D6: No transfusion, start lactulose for Bm, continue chemo 05/22/17:D7 05/23/17: D8: Pt to have final bag chemo hung tonight. Transfuse 1 unit irradiated platelets, 1 unit irradiated PRBC's today. 05/24/17: D9: We'll transfuse 1 unit irradiated packed red blood cells today for hemoglobin of 6.9 05/25/17: D10. transfuse 1 unit platelets. pain in left knee and right shoulder. swelling in left knee. 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 --He presented with hyperleukocytosis and acute blast crises. --on Allopurinol 100mg PO BID for prophylaxis (2) Pancytopenia ICD Codes: D61.818 - Other pancytopenia Status: Acute Plan: --transfuse him for hemoglobin of 7 or less. -- irradiated/CMV-negative blood products. --transfuse for platelet count of 10 or less. --Bactrim DS MWF, Levaquin, Diflucan 100mg daily, Acyclovir 400mg PO BID (3) Coagulopathy ICD Codes: D68.9 - Coagulation defect, unspecified Status: Acute Plan: --Check daily fibrinogen levels. --check his coags and LDH and haptoglobin [id number]. (4) Swelling of left knee joint ICD Codes: M25.462 - Effusion, left knee Plan: --diff dx includes but is not limited to gout vs pseudogout, vs. hemarthrosis vs. septic joint vs. arthritis. --transfuse platelets --check MRI of knee Assessment 72y/o male with acute myeloid leukemia with blast crisis. 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 Plan 1. check MRI, left knee. 2. give 1 unit platelets 3. check repeat H/H 4. X-ray, right shoulder Attending Statement The exam, history, and the medical decision-making described in the above note were completed with the assistance of the mid-level provider. I reviewed and agree with the findings presented. I attest that I had a [id number] encounter with the patient on the same day, and personally performed and documented my assessment and findings in the medical record. 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
[2017-05-25] MEDS ORDERED: GADODIAMIDE PF 287 MG/ML 20 ML VIAL (for RAD MRI) IV PUSH ONE (14:19)
--- NOTE | 2017-05-25 14:42 | RADRPT ---
EXAM DATE/TIME: 05/25/2017 13:35 [facility] COMPARISON: KNEE LEFT COMPLETE (4VWS), May 25, 2017, 14:21. INDICATIONS : Left knee swelling CONTRAST: 18 cc Omniscan (gadodiamide) IV MEDICAL HISTORY : Leukemia. SURGICAL HISTORY : Bilat knee surgery. ENCOUNTER: Initial ACUITY: 2 day PAIN SCORE: 5/10 LOCATION: Left knee TECHNIQUE: Multiplanar multisequence MRI examination of the knee was performed with and without contrast. FINDINGS: The marrow signal is inhomogeneous in the distal femur the proximal tibia and fibula involving both t he medullary space and the epiphysis. This can be seen with leukemic infiltration. There is enlarged joint effusion evident with intense contrast enhancement. The abnormal marrow show s intense contrast enhancement as well. Anterior cruciate is replaced by large high signal intensity. Posterior cruciate is intact. The lat eral meniscus is not visualized. CONCLUSION: Joint effusion as described above intense enhancement. Considerations would include both inflammatory process as well as involvement with leukemia Marrow placement show intense enhancement consistent with leukemic infiltration. Jason Crawford MD FACR on May 25, 2017 at 14:35 Board Certified Radiologist. This report was verified electronically.
--- NOTE | 2017-05-25 14:49 | RADRPT ---
EXAM DATE/TIME: 05/25/2017 14:18 [facility] COMPARISON: No previous studies available for comparison. INDICATIONS : Patient states right shoulder pain. MEDICAL HISTORY : None. SURGICAL HISTORY : None. ENCOUNTER: Initial ACUITY: 1 day PAIN SCORE: 8/10 LOCATION: Right Shoulder FINDINGS: Two view examination of the right shoulder demonstrates no evidence of fracture or dislocation. The glenohumeral and acromioclavicular joints are maintained. Bony mineralization is normal. CONCLUSION: Negative for fracture. MRI of the knee had shown substantial leukemic infiltration. Jason Crawford MD FACR on May 25, 2017 at 14:48 Board Certified Radiologist. This report was verified electronically.
--- NOTE | 2017-05-25 14:53 | RADRPT ---
EXAM DATE/TIME: 05/25/2017 14:21 [facility] COMPARISON: No previous studies available for comparison. INDICATIONS : Patient states left knee pain. MEDICAL HISTORY : None. SURGICAL HISTORY : None. ENCOUNTER: Initial ACUITY: 1 day PAIN SCORE: 7/10 LOCATION: Left Knee FINDINGS: Large joint effusion present. Degenerative changes are present in knee. Fracture is not appreciated . MRI had shown substantial leukemic infiltration. CONCLUSION: Negative for fracture. Moderate joint effusion. Jason Crawford MD FACR on May 25, 2017 at 14:48 Board Certified Radiologist. This report was verified electronically.
[2017-05-25] MEDS ORDERED: HYDROmorphone HCL PF 1 MG/ML VIAL IV PUSH PRN (16:30)
[2017-05-25] MEDS ORDERED: Vancomycin Consult Pharmacy 1 EA OTHER SCH (17:00)
[2017-05-25] MEDS ORDERED: VANCOMYCIN INJ 1,000 MG in SODIUM CHLOR 0.9% 250 ML INJ 250 ML IV SCH (17:00)
[2017-05-25 17:04] LABS: HEMATOCRIT 21.5 % (39.0-51.0)
[2017-05-25 17:16] LABS: REVIEW FLAG FINAL
[2017-05-25] MEDS ORDERED: cefTRIAXone INJ 2,000 MG in SODIUM CHLORIDE 0.9% INJ 100 ML IV SCH (18:00)
[2017-05-25] MEDS ORDERED: VANCOMYCIN 1,500 MG/NS 500 ML IV ONE ×2 (20:00)
[2017-05-25] MEDS: ALPRAZolam 1 MG TAB PO SCH (20:02)
[2017-05-26] VITALS (10 sets, daily range): BP systolic 99–125; BP diastolic 61–73; PULSE 75–97; RESP 16–23; TEMP 95.9–99.7; O2SAT 96–99
[2017-05-26] MEDS: AMINOCAPROIC ACID 500 MG TAB PO SCH ×4 (05:12→22:37)
[2017-05-26 05:55] LABS: HEMATOCRIT 21.4 % (39.0-51.0); MEAN CELL VOLUME 85.4 FL (80.0-100.0); MEAN CORPUSCULAR HEMOGLOBIN 29.4 PG (27.0-34.0); MEAN CORPUSCULAR HGB CONC 34.4 % (32.0-36.0); RED BLOOD COUNT 2.51 MIL/MM3 (4.50-5.90); RED CELL DISTRIBUTION WIDTH 15.4 % (11.6-17.2); WHITE BLOOD COUNT 0.1 TH/MM3 (4.0-11.0)
[2017-05-26 05:59] LABS: HEMO FLAGS AUTO DIFF
[2017-05-26 06:01] LABS: PLATELET COUNT 12 TH/MM3 (150-450)
[2017-05-26 06:09] LABS: ALT (GPT) 55 U/L (12-78); ANION GAP 6 MEQ/L (5-15); AST (GOT) 7 U/L (15-37); BICARBONATE 26.2 MEQ/L (21.0-32.0); BLOOD UREA NITROGEN 19 MG/DL (7-18); CHLORIDE 103 MEQ/L (98-107); GLOMERULAR FILTRATION RATE 85 ML/MIN (>89); MAGNESIUM 2.3 MG/DL (1.5-2.5); POTASSIUM 3.9 MEQ/L (3.5-5.1); SODIUM (NA) 135 MEQ/L (136-145)
[2017-05-26 06:11] LABS: ALKALINE PHOSPHATASE 44 U/L (45-117); TOTAL BILIRUBIN ADULT 1.9 MG/DL (0.2-1.0)
[2017-05-26 07:45] LABS: PLATELET ESTIMATE SMEAR RARE (NORMAL); PLATELET MORPHOLOGY NORMAL (NORMAL); WBC DIFF SAMPLE 10
[2017-05-26 07:46] LABS: SCAN/DIFF FINAL DIFF MANUAL
[2017-05-26] MEDS: VANCOMYCIN INJ 1,500 MG in SODIUM CHLORID 0.9% 500 ML INJ 500 ML IV SCH ×2 (08:28→19:58)
[2017-05-26] MEDS: ACETAMINOPHEN/HYDROcodone 325 MG/7.5 MG TAB PO PRN ×2 (08:29→21:48)
[2017-05-26] MEDS: ACYCLOVIR 200 MG CAP PO SCH ×2 (08:30→21:47)
[2017-05-26] MEDS: CITALOPRAM HYDROBROMIDE 20 MG TAB PO SCH (08:30)
[2017-05-26] MEDS: FLUCONAZOLE 100 MG TAB PO SCH (08:30)
[2017-05-26] MEDS: PANTOPRAZOLE SOD 20 MG DELAYED RELEASE TAB PO SCH (08:30)
[2017-05-26] MEDS: MEGESTROL ACETATE SUSP 400 MG/10 ML CUP PO SCH (08:32)
[2017-05-26] MEDS: NYSTAT/DIPHENHY/LIDO MOUTHWASH (Adult) 120ML SWISH-SWAL SCH ×4 (08:35→21:47)
--- NOTE | 2017-05-26 10:21 | PD.ONC.PN ---
Subjective Subjective Remarks Afebrile overnight. patient resting in bed. States he continues to have pain if he tries to move his left knee or right shoulder. No new complaints. Slept well overnight. Objective Data Date Time Temp Pulse Resp B/P (MAP) Pulse Ox O2 Delivery O2 Flow Rate FiO2 05/26/17 05:23 96.5 94 20 106/65 (79) 98 05/25/17 23:48 97.4 90 20 114/71 (85) 99 05/25/17 21:52 20 05/25/17 21:00 88 05/25/17 20:00 98.6 90 18 115/69 (84) 99 05/25/17 16:00 98.4 99 20 109/72 (84) 98 05/25/17 12:05 97.5 84 18 97/62 99 05/25/17 11:30 84 05/26/17 05/26/17 05/26/17 07:00 15:00 23:00 Intake Total 480 ml Balance 480 ml Result Diagram: 05/26/1751905/26/17 05 Laboratory Results Laboratory Tests Test 05/25/17 15:55 05/26/17 05:20 Hemoglobin 7.2 GM/DL 7.4 GM/DL Hematocrit 21.5 % 21.4 % White Blood Count 0.1 TH/MM3 Red Blood Count 2.51 MIL/MM3 Mean Corpuscular Volume 85.4 FL Mean Corpuscular Hemoglobin 29.4 PG Mean Corpuscular Hemoglobin Concent 34.4 % Red Cell Distribution Width 15.4 % Platelet Count 12 TH/MM3 Mean Platelet Volume 7.3 FL CBC Comment AUTO DIFF Differential Total Cells Counted 10 Lymphocytes % 90 % Monocytes % 10 % Neutrophils # (Manual) 0.0 TH/MM3 Differential Comment FINAL DIFF MANUAL Platelet Estimate RARE Platelet Morphology Comment NORMAL Blood Urea Nitrogen 19 MG/DL Creatinine 0.89 MG/DL Random Glucose 118 MG/DL Total Protein 5.5 GM/DL Albumin 2.0 GM/DL Calcium Level 8.2 MG/DL Phosphorus Level 2.9 MG/DL Magnesium Level 2.3 MG/DL Alkaline Phosphatase 44 U/L Aspartate Amino Transf (AST/SGOT) 7 U/L Alanine Aminotransferase (ALT/SGPT) 55 U/L Total Bilirubin 1.9 MG/DL Sodium Level 135 MEQ/L Potassium Level 3.9 MEQ/L Chloride Level 103 MEQ/L Carbon Dioxide Level 26.2 MEQ/L Anion Gap 6 MEQ/L Estimat Glomerular Filtration Rate 85 ML/MIN Culture Results Microbiology Date/Time Source Procedure Growth Status 05/25/17 19:57 Blood Peripheral Aerobic Blood Culture Pending Received 05/25/17 19:57 Blood Peripheral Anaerobic Blood Culture Pending Received 05/25/17 19:55 Blood Other Aerobic Blood Culture Pending Received 05/25/17 19:55 Blood Other Anaerobic Blood Culture Pending Received Administered Medications Medications (Trade) Dose Ordered Sig/Ivelisse Route PRN Reason Start Time Stop Time Status Last Admin Dose Admin Acetaminophen (Tylenol) 650 mg Q4H PRN PO fever>100.4 05/15/17 13:00 05/19/17 15:00 Citalopram Hydrobromide (CeleXA) 20 mg DAILY PO 05/16/17 09:00 05/26/17 08:30 Pantoprazole Sodium (Protonix) 20 mg DAILY PO 05/16/17 09:00 05/26/17 08:30 Ondansetron HCl (Zofran Inj) 4 mg Q6HR PRN IV PUSH nausea 05/15/17 14:00 05/16/17 10:30 Trimethoprim/ Sulfamethoxazole (Bactrim Ds 800-160 Mg) 1 tab MoWeFr@09 PO 05/16/17 09:00 Future Hold 05/25/17 08:37 Fluconazole (Diflucan) 100 mg DAILY PO 05/16/17 09:00 05/26/17 08:30 Acyclovir (Zovirax) 400 mg BID PO 05/16/17 09:00 05/26/17 08:30 Multi-Ingredient Mouthwash/Gargle (Magic Mouthwash Adult Liq) 5 ml QID SWISH-SWAL 05/16/17 13:00 05/26/17 08:35 Megestrol Acetate (Megace Liq) 300 mg DAILY PO 05/16/17 14:00 05/26/17 08:32 Alprazolam (Xanax) 1 mg HS PO 05/20/17 21:00 06/09/17 09:59 05/25/17 20:02 Alprazolam (Xanax) 0.5 mg Q8H PRN PO anxiety 05/20/17 10:15 05/25/17 08:36 Aminocaproic Acid (Amicar) 1,000 mg Q6HR PO 05/21/17 12:00 05/26/17 05:12 Magnesium Hydroxide (Milk Of Leigh Spencer) 30 ml DAILY PRN PO CONSTIPATION 05/21/17 11:30 05/21/17 16:54 Acetaminophen/ Hydrocodone Bitart (Nunda 7.5-325 Mg) 1 tab Q4H PRN PO PAIN SCALE 4 TO 10 05/25/17 10:30 05/26/17 08:29 Ceftriaxone Sodium 2000 mg/ Sodium Chloride 100 ml @ 200 mls/hr Q24H IV 05/25/17 18:00 05/25/17 20:49 Vancomycin HCl 1500 mg/Sodium Chloride 515 ml @ 250 mls/hr Q12H IV 05/26/17 08:00 05/26/17 08:28 Objective Remarks GENERAL: Elderly male lying supine in bed in [facility]. SKIN: Warm and dry. HEAD: Normocephalic. EYES: No injection or drainage. NECK: Supple, trachea midline. CARDIOVASCULAR: Regular rate and rhythm RESPIRATORY: Breath sounds equal bilaterally. No accessory muscle use. GASTROINTESTINAL: Abdomen soft, non-tender, nondistended. EXTREMITIES: No cyanosis. left knee swelling is unchanged. no erythema or lesion. no active or passive ROM allowed by patient. Right shoulder: no swelling or skin changes. NEUROLOGICAL: awake and alert, normal speech. Assessment/Plan Problem List: (1) AML (acute myeloblastic leukemia) ICD Codes: C92.00 - Acute myeloblastic leukemia, not having achieved remission Plan: 05/15/17: Admission. given Hydrea. [facility] performed Leukapheresis bringing WBC from >100K to 44K. 05/16/17: D1. SONIA-C + Maria Del Rosario. 1 unit pRBC 05/17/17: D2. no transfusion. tolerating chemo 05/18/17: D3. no transfusion. 05/19/17: D4. 1 unit platelets today. No evidence of tumor lysis. Pt finished idarubicin yesterday. Continue SONIA-C. 05/20/17 D5: 1 unit platelets, 2 units PRBC's today. Will add on xanax prn and 1mg xanax at HS scheduled. Continue chemo, continue to monitor blood counts. 05/21/17.D6: No transfusion, start lactulose for Bm, continue chemo 05/22/17:D7 05/23/17: D8: Pt to have final bag chemo hung tonight. Transfuse 1 unit irradiated platelets, 1 unit irradiated PRBC's today. 05/24/17: D9: We'll transfuse 1 unit irradiated packed red blood cells today for hemoglobin of 6.9 05/25/17: D10. transfuse 1 unit platelets. pain in left knee and right shoulder. swelling in left knee. 05/26/17: D11. 1 unit platelets, 1 unit pRBC. 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 --He presented with hyperleukocytosis and acute blast crises. --on Allopurinol 100mg PO BID for prophylaxis (2) Pancytopenia ICD Codes: D61.818 - Other pancytopenia Status: Acute Plan: --transfuse him for hemoglobin of 7 or less. -- irradiated/CMV-negative blood products. --transfuse for platelet count of 10 or less. --Bactrim DS MWF, Levaquin, Diflucan 100mg daily, Acyclovir 400mg PO BID (3) Coagulopathy ICD Codes: D68.9 - Coagulation defect, unspecified Status: Acute Plan: --Check daily fibrinogen levels. --check his coags and LDH and haptoglobin [id number]. (4) Swelling of left knee joint ICD Codes: M25.462 - Effusion, left knee Plan: --diff dx includes but is not limited to gout vs pseudogout, vs. hemarthrosis vs. septic joint vs. arthritis. --transfuse platelets --MRI of knee shows joint effusion, unable to tap until counts recover --on Vanco/Rocephin empirically Assessment 72y/o male with acute myeloid leukemia with blast crisis. 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 Plan 1. continue antibiotics 2. 1 unit pRBC 3. 1 unit platelets Attending Statement The exam, history, and the medical decision-making described in the above note were completed with the assistance of the mid-level provider. I reviewed and agree with the findings presented. I attest that I had a [id number] encounter with the patient on the same day, and personally performed and documented my assessment and findings in the medical record. Left knee and right shoulder pain. Knee MRI +effusion but no bleeding noted. Blood counts are nadiring. Continue transfusion prn.Check ESR. Problem Qualifiers (1) AML (acute myeloblastic leukemia): Qualified Codes: C92.00 - Acute myeloblastic leukemia, not having achieved remission Oma Chavez May 26, 2017 10:21 Caleb Edwards MD May 26, 2017 12:26
[2017-05-26] MEDS ORDERED: SODIUM CHLOR 0.9% 250 ML INJ 250 ML IV ONE (10:30)
[2017-05-26] MEDS: diphenhydrAMINE HCL 25 MG CAP PO PRN ×2 (13:14→22:40)
--- NOTE | 2017-05-26 13:48 | HHI.PR ---
Objective Objective Results - Vital Signs Date Time Temp Pulse Resp B/P (MAP) Pulse Ox O2 Delivery O2 Flow Rate FiO2 05/26/17 12:25 95.9 81 20 111/70 (84) 99 05/26/17 08:50 99.7 89 23 111/73 (86) 98 05/26/17 05:23 96.5 94 20 106/65 (79) 98 05/25/17 23:48 97.4 90 20 114/71 (85) 99 05/25/17 21:52 20 05/25/17 21:00 88 05/25/17 20:00 98.6 90 18 115/69 (84) 99 05/25/17 16:00 98.4 99 20 109/72 (84) 98 I/O 05/25/17 05/25/17 05/25/17 05/26/17 05/26/17 05/26/17 07:00 15:00 23:00 07:00 15:00 23:00 Intake Total 500 ml 206 ml 840 ml 480 ml Output Total 900 ml Balance 500 ml 206 ml -60 ml 480 ml Intake Oral 500 ml 840 ml IV Total 480 ml Platelets 206 ml Output Urine Total 900 ml # Voids 4 # Bowel Movements 4 Result Diagram: 05/26/17 0520 05/26/17 0520 Imaging Last Impressions Chest X-Ray 05/16/17 0700 Signed Impressions: Service Date/Time: Tuesday, May 16, 2017 07:41 - CONCLUSION: The lungs are clear. No evidence of pneumothorax. Ethan Sabillon MD [facility] 05/15/17 0000 Signed Impressions: Service Date/Time: Monday, May 15, 2017 14:57 - CONCLUSION: Normal study. Ejection fraction 72%% Man Burden MD Catheter Placement X-Ray 05/15/17 0000 Signed Impressions: Service Date/Time: Monday, May 15, 2017 17:46 - CONCLUSION: Uncomplicated line placement as above. Man Burden MD Other Results Laboratory Tests Test 05/25/17 15:55 05/26/17 05:20 Hemoglobin 7.2 7.4 Hematocrit 21.5 21.4 White Blood Count 0.1 Red Blood Count 2.51 Mean Corpuscular Volume 85.4 Mean Corpuscular Hemoglobin 29.4 Mean Corpuscular Hemoglobin Concent 34.4 Red Cell Distribution Width 15.4 Platelet Count 12 Mean Platelet Volume 7.3 CBC Comment AUTO DIFF Differential Total Cells Counted 10 Lymphocytes % 90 Monocytes % 10 Neutrophils # (Manual) 0.0 Differential Comment FINAL DIFF MANUAL Platelet Estimate RARE Platelet Morphology Comment NORMAL Blood Urea Nitrogen 19 Creatinine 0.89 Random Glucose 118 Total Protein 5.5 Albumin 2.0 Calcium Level 8.2 Phosphorus Level 2.9 Magnesium Level 2.3 Alkaline Phosphatase 44 Aspartate Amino Transf (AST/SGOT) 7 Alanine Aminotransferase (ALT/SGPT) 55 Total Bilirubin 1.9 Sodium Level 135 Potassium Level 3.9 Chloride Level 103 Carbon Dioxide Level 26.2 Anion Gap 6 Estimat Glomerular Filtration Rate 85 Date/Time Source Procedure Growth Status 05/25/17 19:57 Blood Peripheral Aerobic Blood Culture - Preliminary NO GROWTH IN 1 DAY Resulted 05/25/17 19:57 Anaerobic Blood Culture - Preliminary Gram Positive Cocci Resulted Physical Exam Physical Exam GENERAL: This is a well-nourished, well-developed patient, in no apparent distress. SKIN: Petechial rash noted to bilateral pretibial areas. Skin pale and cool to touch HEAD: Atraumatic. Normocephalic. No temporal or scalp tenderness. EYES: Pupils equal round and reactive. Extraocular motions intact. No scleral icterus. No injection or drainage. ENT: Nose without bleeding, purulent drainage or septal hematoma. Airway patent. NECK: Trachea midline. No JVD or lymphadenopathy. Supple, nontender, no meningeal signs. CARDIOVASCULAR: Regular rate and rhythm without murmurs, gallops, or rubs. RESPIRATORY: Clear to auscultation. Breath sounds equal bilaterally. No wheezes , rales, or rhonchi. Port-A-Cath noted to left chest wall area. GASTROINTESTINAL: Abdomen soft, non-tender, nondistended. No hepato-splenomegaly , or palpable masses. No guarding. MUSCULOSKELETAL: Left knee is slightly more swollen, warm to touch. Resisted any movement, unable to flex or extend. Right shoulder tender, no erythema noted. No deformity. Able to bring up right arm up to eye level,very painful with abduction. NEUROLOGICAL: Awake, alert oriented 2, forgetful. No focal deficit. Urinary Catheter: No Vascular Central Line Catheter: No A/P Assessment and Plan (1) AML (acute myeloblastic leukemia) ICD Codes: C92.00 - Acute myeloblastic leukemia, not having achieved remission (2) Pancytopenia ICD Codes: D61.818 - Other pancytopenia Status: Acute (3) Coagulopathy ICD Codes: D68.9 - Coagulation defect, unspecified Status: Acute (4) Anxiety and depression ICD Codes: F41.8 - Other specified anxiety disorders Status: Chronic (5) Familial tremor ICD Codes: G25.0 - Essential tremor Status: Chronic Plan 72-year-old white male with 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 Admitted for chemotherapy induction. Acute myeloblastic leukemia Pancytopenia -Dr. Ibanez managing -Continue with Bactrim Levaquin Diflucan and acyclovir -completed chemo 05/23 -plat 12 today, - jaycob zaragoza Coagulopathy -Monitor for bleeding - fibrinogen levels per oncology. 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 septic joint, effusion -Xray left knee and right shoulder today -uric acid yesterday ok. -on Allopurinol 100 mg po bid -d/w TEENA Poe , will check MRI left knee -add Armstrong PRN -on rocephin and vanco + BLood culture - jaycob zaragoza will change rocephin to zosyn No SCDs or anticoagulation recommended at this time due to thrombocytopenia Continue Protonix for GI prophylaxis Inc activity as tolerated bowel regimen monitor CBC closely. D/W RN D/W pt Gold Santos MD May 26, 2017 13:48
[2017-05-26] MEDS: PIPERACIL-TAZO 3.375 GM PREMIX 50 ML IV SCH ×2 (14:00→21:47)
--- NOTE | 2017-05-26 19:11 | PD.ID.CON ---
History of Present Illness Service ID Consult Requested By GORDON Stover Reason for Consult neutropenic fever Primary Care Physician Shar Ibanez MD Diagnoses: History of Present Illness This a pleasant 72-year-old male with history of high-grade MDS which transformed to acute myeloblastic leukemia. Pt was started on chemo Pt is neutropenic since admission Blood clx growing coag negative staph in 2 / 2 blood clx sets Pt co L knee swelling and pain with inabilituy to bend the knee abd weight bearing He also co R shoulder pain MRI of both joints suggests leukemic infiltration. Review of Systems Except as stated in HPI: all other systems reviewed are Neg Past Family Social History Allergies: Coded Allergies: No Known Allergies (Unverified , 05/10/17) Past Medical History 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 Osteoarthritis Kidney stones Sanford's esophagus GERD Familial tremor Tinnitus Anxiety and depression History of cutaneous T-cell lymphoma treated 3 years ago Past Surgical History Lithotripsy Port-A-Cath insertion Cholecystectomy Tonsillectomy Active Ordered Medications Medications where reviewed in EMR Antibiotics Include: vancomycin zosyn Family History cancer in both parents Social History No Tobacco. No ETOH. + MJ daily Physical Exam Vital Signs Vital Signs Date Time Temp Pulse Resp B/P (MAP) Pulse Ox O2 Delivery O2 Flow Rate FiO2 05/26/17 16:38 99.4 97 20 113/69 (84) 99 05/26/17 14:35 98.1 76 17 106/65 99 05/26/17 14:20 98.0 78 16 104/66 99 05/26/17 12:25 95.9 81 20 111/70 (84) 99 05/26/17 08:50 99.7 89 23 111/73 (86) 98 05/26/17 05:23 96.5 94 20 106/65 (79) 98 05/25/17 23:48 97.4 90 20 114/71 (85) 99 05/25/17 21:52 20 05/25/17 21:00 88 05/25/17 20:00 98.6 90 18 115/69 (84) 99 Physical Exam CONSTITUTIONAL/GENERAL: This is an adequately nourished patient, in no apparent distress. TUBES/LINES/DRAINS: infusaport in place R chest, looks OK SKIN: No jaundice, petechial rashe BLE . . Skin temperature appropriate. Not diaphoretic. HEAD: Atraumatic. Normocephalic. EYES: Pupils equal and round and reactive. Extraocular motions intact. No scleral icterus. No injection or drainage. Fundi not examined. ENT: Hearing grossly normal. Nose without bleeding or purulent drainage. Throat without visible erythema, exudates, masses, or lesions. NECK: Trachea midline. Supple, nontender. . CARDIOVASCULAR: Regular rate and rhythm without murmurs, gallops, or rubs. No JVD. Peripheral pulses symmetric. RESPIRATORY/CHEST: Symmetric, unlabored respirations. Clear to auscultation. Breath sounds equal bilaterally. No wheezes, rales, or rhonchi. GASTROINTESTINAL: Abdomen soft, non-tender, nondistended. No hepato-splenomegaly , or palpable masses. No guarding. Bowel sounds present. GENITOURINARY: Without palpable bladder distension. MUSCULOSKELETAL: Extremities without clubbing, cyanosis, or edema. + L knee effusion noted. NO redness ROM limited severely 2/2 pain No erythema No calf tenderness. No mottling or clubbing. R shoulder also with severely reduced ROM 2/2 pain LYMPHATICS: No palpable cervical or supraclavicular adenopathy. NEUROLOGICAL: Awake and alert. Motor and sensory grossly within normal limits. Follows commands. Clear speech. Moves all extremities. PSYCHIATRIC: No obvious anxiety/depression. no apparent hallucinations or other psychotic thought process. Laboratory Laboratory Tests Test 05/26/17 05:20 White Blood Count 0.1 Red Blood Count 2.51 Hemoglobin 7.4 Hematocrit 21.4 Mean Corpuscular Volume 85.4 Mean Corpuscular Hemoglobin 29.4 Mean Corpuscular Hemoglobin Concent 34.4 Red Cell Distribution Width 15.4 Platelet Count 12 Mean Platelet Volume 7.3 CBC Comment AUTO DIFF Differential Total Cells Counted 10 Lymphocytes % 90 Monocytes % 10 Neutrophils # (Manual) 0.0 Differential Comment FINAL DIFF MANUAL Platelet Estimate RARE Platelet Morphology Comment NORMAL Blood Urea Nitrogen 19 Creatinine 0.89 Random Glucose 118 Total Protein 5.5 Albumin 2.0 Calcium Level 8.2 Phosphorus Level 2.9 Magnesium Level 2.3 Alkaline Phosphatase 44 Aspartate Amino Transf (AST/SGOT) 7 Alanine Aminotransferase (ALT/SGPT) 55 Total Bilirubin 1.9 Sodium Level 135 Potassium Level 3.9 Chloride Level 103 Carbon Dioxide Level 26.2 Anion Gap 6 Estimat Glomerular Filtration Rate 85 Date/Time Source Procedure Growth Status 05/25/17 19:57 Blood Peripheral Aerobic Blood Culture - Preliminary NO GROWTH IN 1 DAY Resulted 05/25/17 19:57 Anaerobic Blood Culture - Preliminary Gram Positive Cocci Resulted Result Diagram: 05/26/17 0520 05/26/17 0520 Imaging Last Impressions Shoulder X-Ray 05/25/17 0000 Signed Impressions: Service Date/Time: Thursday, May 25, 2017 14:18 - CONCLUSION: Negative for fracture. MRI of the knee had shown substantial leukemic infiltration. Jason Crawford MD FACR Knee X-Ray 05/25/17 0000 Signed Impressions: Service Date/Time: Thursday, May 25, 2017 14:21 - CONCLUSION: Negative for fracture. Moderate joint effusion. Jason Crawford MD FACR Knee MRI 05/25/17 0000 Signed Impressions: Service Date/Time: Thursday, May 25, 2017 13:35 - CONCLUSION: Joint effusion as described above intense enhancement. Considerations would include both inflammatory process as well as involvement with leukemia Marrow placement show intense enhancement consistent with leukemic infiltration. Jason Crawford MD FACR Chest X-Ray 05/16/17 0700 Signed Impressions: Service Date/Time: Tuesday, May 16, 2017 07:41 - CONCLUSION: The lungs are clear. No evidence of pneumothorax. Ethan Sabillon MD [facility] 05/15/17 0000 Signed Impressions: Service Date/Time: Monday, May 15, 2017 14:57 - CONCLUSION: Normal study. Ejection fraction 72%% Man Burden MD Catheter Placement X-Ray 05/15/17 0000 Signed Impressions: Service Date/Time: Monday, May 15, 2017 17:46 - CONCLUSION: Uncomplicated line placement as above. Man Burden MD Assessment and Plan Assessment and Plan MDS with leukemic tranformation sp chemo, neutropenic L knee effusion Staph epi bacteremia ? from port - cont vancomycin for at least 14 days - repeat blood clx to ensure resolution of bactermeia - L knee arthrocenthesis when feasible Marta Montilla MD May 26, 2017 19:11
[2017-05-26] MEDS: ALPRAZolam 1 MG TAB PO SCH (21:47)
[2017-05-26] MEDS: SODIUM CHLORIDE 0.9% FLUSH 10 ML FLUSH IVF PRN (21:47)
[2017-05-27] VITALS (9 sets, daily range): BP systolic 105–124; BP diastolic 64–75; PULSE 70–90; RESP 18–22; TEMP 96.7–97.7; O2SAT 94–99
[2017-05-27] MEDS: PIPERACIL-TAZO 3.375 GM PREMIX 50 ML IV SCH ×4 (02:50→19:51)
[2017-05-27] MEDS: AMINOCAPROIC ACID 500 MG TAB PO SCH ×4 (05:29→23:46)
[2017-05-27 06:10] LABS: MEAN CELL VOLUME 85.2 FL (80.0-100.0); MEAN CORPUSCULAR HEMOGLOBIN 29.3 PG (27.0-34.0); MEAN CORPUSCULAR HGB CONC 34.4 % (32.0-36.0); PLATELET COUNT 26 TH/MM3 (150-450); RED BLOOD COUNT 2.39 MIL/MM3 (4.50-5.90); RED CELL DISTRIBUTION WIDTH 15.2 % (11.6-17.2); WHITE BLOOD COUNT 0.1 TH/MM3 (4.0-11.0)
[2017-05-27 06:19] LABS: HEMO FLAGS AUTO DIFF
[2017-05-27 06:20] LABS: APTT (PATIENT) 36.9 SEC (24.3-30.1); INTERNATIONAL NORMALIZED RATIO 1.2 RATIO; PROTHROMBIN TIME - PATIENT 13.1 SEC (9.8-11.6)
[2017-05-27 06:21] LABS: HEMATOCRIT 20.4 % (39.0-51.0)
[2017-05-27 06:28] LABS: ALT (GPT) 37 U/L (12-78); ANION GAP 5 MEQ/L (5-15); AST (GOT) 7 U/L (15-37); BICARBONATE 26.6 MEQ/L (21.0-32.0); BLOOD UREA NITROGEN 17 MG/DL (7-18); CHLORIDE 103 MEQ/L (98-107); GLOMERULAR FILTRATION RATE 83 ML/MIN (>89); MAGNESIUM 2.2 MG/DL (1.5-2.5); POTASSIUM 3.7 MEQ/L (3.5-5.1); SODIUM (NA) 135 MEQ/L (136-145)
[2017-05-27 06:30] LABS: ALKALINE PHOSPHATASE 45 U/L (45-117); LDH SERUM 122 U/L (87-241); TOTAL BILIRUBIN ADULT 2.2 MG/DL (0.2-1.0)
[2017-05-27] MEDS ORDERED: SODIUM CHLOR 0.9% 250 ML INJ 250 ML IV ONE (07:45)
[2017-05-27] MEDS ORDERED: PHARMACY ORDERED LAB ONE (07:45)
[2017-05-27] MEDS: NYSTAT/DIPHENHY/LIDO MOUTHWASH (Adult) 120ML SWISH-SWAL SCH ×4 (08:36→20:53)
[2017-05-27] MEDS: VANCOMYCIN INJ 1,500 MG in SODIUM CHLORID 0.9% 500 ML INJ 500 ML IV SCH ×2 (08:37→19:51)
[2017-05-27] MEDS: ACYCLOVIR 200 MG CAP PO SCH ×2 (08:37→20:53)
[2017-05-27] MEDS: PANTOPRAZOLE SOD 20 MG DELAYED RELEASE TAB PO SCH (08:37)
[2017-05-27] MEDS: CITALOPRAM HYDROBROMIDE 20 MG TAB PO SCH (08:37)
[2017-05-27] MEDS: FLUCONAZOLE 100 MG TAB PO SCH (08:37)
[2017-05-27] MEDS: MEGESTROL ACETATE SUSP 400 MG/10 ML CUP PO SCH (08:51)
[2017-05-27 09:25] LABS: PLATELET ESTIMATE SMEAR LOW (NORMAL); PLATELET MORPHOLOGY NORMAL (NORMAL); SCAN/DIFF FINAL DIFF MANUAL; WBC DIFF SAMPLE 10
--- NOTE | 2017-05-27 09:41 | HHI.PR ---
Subjective Remarks left knee pain a little better, however he's not moving the leg and not walking very much Right arm noted with swelling, right forearm and AC with some erythema, had an IV site was discontinued. His that moving right arm as much although he is able to lift it off the bed No fever No chest pain No shortness of breath Feeling very fatigued (Viola Sanon) Objective Objective Results - Vital Signs Date Time Temp Pulse Resp B/P (MAP) Pulse Ox O2 Delivery O2 Flow Rate FiO2 05/27/17 04:18 70 05/27/17 04:11 96.7 73 20 111/67 (82) 94 05/27/17 00:25 97.2 80 18 111/71 98 05/27/17 00:03 72 05/26/17 23:10 96.6 75 16 101/61 96 05/26/17 22:48 16 05/26/17 22:43 97.6 80 16 99/62 96 05/26/17 20:28 97.2 86 20 125/71 (89) 98 05/26/17 20:04 90 05/26/17 16:38 99.4 97 20 113/69 (84) 99 05/26/17 14:35 98.1 76 17 106/65 99 05/26/17 14:20 98.0 78 16 104/66 99 05/26/17 12:25 95.9 81 20 111/70 (84) 99 I/O 05/26/17 05/26/17 05/26/17 05/27/17 05/27/17 05/27/17 07:00 15:00 23:00 07:00 15:00 23:00 Intake Total 480 ml 1117 ml 562 ml Output Total 500 ml 620 ml Balance 480 ml 617 ml -58 ml Intake Oral 717 ml IV Total 480 ml Packed Cells 400 ml Platelets 512 ml Blood Product IV Normal Saline Flush 50 ml Output Urine Total 500 ml 620 ml # Voids 4 # Bowel Movements 0 (Viola Sanon) Result Diagram: 05/27/17 0535 05/27/17 0535 Imaging Last Impressions Chest X-Ray 05/16/17 0700 Signed Impressions: Service Date/Time: Tuesday, May 16, 2017 07:41 - CONCLUSION: The lungs are clear. No evidence of pneumothorax. Ethan Sabillon MD [facility] 05/15/17 0000 Signed Impressions: Service Date/Time: Monday, May 15, 2017 14:57 - CONCLUSION: Normal study. Ejection fraction 72%% Man Burden MD Catheter Placement X-Ray 05/15/17 0000 Signed Impressions: Service Date/Time: Monday, May 15, 2017 17:46 - CONCLUSION: Uncomplicated line placement as above. Man Burden MD Other Results Laboratory Tests Test 05/27/17 05:30 05/27/17 05:35 Vancomycin Level Trough 16.5 White Blood Count 0.1 Red Blood Count 2.39 Hemoglobin 7.0 Hematocrit 20.4 Mean Corpuscular Volume 85.2 Mean Corpuscular Hemoglobin 29.3 Mean Corpuscular Hemoglobin Concent 34.4 Red Cell Distribution Width 15.2 Platelet Count 26 Mean Platelet Volume 6.7 CBC Comment AUTO DIFF Differential Total Cells Counted 10 Lymphocytes % 100 Neutrophils # (Manual) 0.0 Differential Comment FINAL DIFF MANUAL Platelet Estimate LOW Platelet Morphology Comment NORMAL Erythrocyte Sedimentation Rate GREATER THAN 140 Haptoglobin 306 Prothrombin Time 13.1 Prothromb Time International Ratio 1.2 Activated Partial Thromboplast Time 36.9 Blood Urea Nitrogen 17 Creatinine 0.90 Random Glucose 107 Total Protein 5.3 Albumin 2.0 Calcium Level 8.0 Phosphorus Level 2.5 Magnesium Level 2.2 Alkaline Phosphatase 45 Aspartate Amino Transf (AST/SGOT) 7 Alanine Aminotransferase (ALT/SGPT) 37 Lactate Dehydrogenase 122 Total Bilirubin 2.2 Sodium Level 135 Potassium Level 3.7 Chloride Level 103 Carbon Dioxide Level 26.6 Anion Gap 5 Estimat Glomerular Filtration Rate 83 Date/Time Source Procedure Growth Status 05/26/17 21:55 Blood Line Aerobic Blood Culture Pending Received 05/26/17 21:55 Blood Line Anaerobic Blood Culture Pending Received (Viola Sanon) ROS General: Fatigue HEENT: No: Sore Throat, Dysphagia Cardiac: No: Chest Pain, Edema, Palpitations Pulmonary: No: Cough, SOB, Wheezing GI: No: Abdominal Pain, BM, Diarrhea, N/V /DATA ENTRY MANAGER: No: Dysuria, Urgency Neuro/MS: Other (left knee pain, right shoulder pain) Psych: No: Anxiety, Depression Skin: No: Itching, Rash (Viola Sanon) Physical Exam Physical Exam GENERAL: This is a well-nourished, well-developed patient, in no apparent distress. SKIN: Petechial rash noted to bilateral pretibial areas. Skin pale and cool to touch HEAD: Atraumatic. Normocephalic. No temporal or scalp tenderness. EYES: Pupils equal round and reactive. Extraocular motions intact. No scleral icterus. No injection or drainage. ENT: Nose without bleeding, purulent drainage or septal hematoma. Throat without erythema, tonsillar hypertrophy or exudate. Uvula midline. Airway patent. NECK: Trachea midline. No JVD or lymphadenopathy. Supple, nontender, no meningeal signs. CARDIOVASCULAR: Regular rate and rhythm without murmurs, gallops, or rubs. RESPIRATORY: Clear to auscultation. Breath sounds equal bilaterally. No wheezes , rales, or rhonchi. Port-A-Cath noted to left chest wall area. GASTROINTESTINAL: Abdomen soft, non-tender, nondistended. No hepato-splenomegaly , or palpable masses. No guarding. MUSCULOSKELETAL: Left knee is slightly more swollen, warm to touch. Resisted any movement, unable to flex or extend. Right shoulder tender, no erythema noted. No deformity. Able to bring up right arm up to eye level,very painful with abduction. NEUROLOGICAL: Awake, alert oriented 2, forgetful. No focal deficit. (Viola Sanon) Urinary Catheter: No (Viola Sanon) Vascular Central Line Catheter: No (Viola Sanon) A/P Diagnosis: (1) AML (acute myeloblastic leukemia) ICD Codes: C92.00 - Acute myeloblastic leukemia, not having achieved remission (2) Pancytopenia ICD Codes: D61.818 - Other pancytopenia Status: Acute (3) Coagulopathy ICD Codes: D68.9 - Coagulation defect, unspecified Status: Acute (4) Anxiety and depression ICD Codes: F41.8 - Other specified anxiety disorders Status: Chronic (5) Familial tremor ICD Codes: G25.0 - Essential tremor Status: Chronic Assessment and Plan 72-year-old white male with 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 Admitted for chemotherapy induction. Acute myeloblastic leukemia Pancytopenia -Dr. Ibanez managing -Continue with Bactrim Levaquin Diflucan and acyclovir -completed chemo 05/23 -Continue with blood product replacement is needed -Monitor for bone marrow recovery Coagulopathy -Monitor for bleeding - fibrinogen levels per oncology. 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 septic joint, effusion -MRI left knee noted, joint effusion, unable to have arthrocentesis due to low platelets. -ID has been consulted, input appreciated -Continue with empiric antibiotic -Continue with Allopurinol 100 mg po bid -Continue Savage PRN Positive blood cultures, ? Bacteremia, left knee effusion. -Appreciate ID input -Continue with empiric antibiotics -Follow cultures closely No SCDs or anticoagulation recommended at this time due to thrombocytopenia Continue Protonix for GI prophylaxis PT and OT to increase mobility Monitor CBC D/W RN D/W pt D/W Dr. Santos/Goldie DICKINSON Patient was seen by myself and Dr. Santos, this note is written on his behalf (Viola Sanon) Assessment and Plan Patient seen and examined as above Labs reviewed Discussed with patient Medications reviewed Plan of care discussed with CAD DETAILER (Gold Santos MD) Problem Qualifiers (1) AML (acute myeloblastic leukemia): Qualified Codes: C92.00 - Acute myeloblastic leukemia, not having achieved remission Viola Sanon May 27, 2017 09:41 Gold Santos MD May 27, 2017 12:16
--- NOTE | 2017-05-27 09:58 | PD.ONC.PN ---
Subjective Subjective Remarks Afebrile overnight. Patient resting in bed in nad. Reports he doesn't have pain in his left knee unless he tries to move it. Same with the right shoulder. Objective Data Date Time Temp Pulse Resp B/P (MAP) Pulse Ox O2 Delivery O2 Flow Rate FiO2 05/27/17 04:18 70 05/27/17 04:11 96.7 73 20 111/67 (82) 94 05/27/17 00:25 97.2 80 18 111/71 98 05/27/17 00:03 72 05/26/17 23:10 96.6 75 16 101/61 96 05/26/17 22:48 16 05/26/17 22:43 97.6 80 16 99/62 96 05/26/17 20:28 97.2 86 20 125/71 (89) 98 05/26/17 20:04 90 05/26/17 16:38 99.4 97 20 113/69 (84) 99 05/26/17 14:35 98.1 76 17 106/65 99 05/26/17 14:20 98.0 78 16 104/66 99 05/26/17 12:25 95.9 81 20 111/70 (84) 99 05/27/17 05/27/17 05/27/17 07:00 15:00 23:00 Intake Total 562 ml Output Total 620 ml Balance -58 ml Result Diagram: 05/27/17 0535 05/27/17 0535 Laboratory Results Laboratory Tests Test 05/27/17 05:30 05/27/17 05:35 Vancomycin Level Trough 16.5 MCG/ML White Blood Count 0.1 TH/MM3 Red Blood Count 2.39 MIL/MM3 Hemoglobin 7.0 GM/DL Hematocrit 20.4 % Mean Corpuscular Volume 85.2 FL Mean Corpuscular Hemoglobin 29.3 PG Mean Corpuscular Hemoglobin Concent 34.4 % Red Cell Distribution Width 15.2 % Platelet Count 26 TH/MM3 Mean Platelet Volume 6.7 FL CBC Comment AUTO DIFF Differential Total Cells Counted 10 Lymphocytes % 100 % Neutrophils # (Manual) 0.0 TH/MM3 Differential Comment FINAL DIFF MANUAL Platelet Estimate LOW Platelet Morphology Comment NORMAL Erythrocyte Sedimentation Rate GREATER THAN 140 mm/hr Haptoglobin 306 MG/DL Prothrombin Time 13.1 SEC Prothromb Time International Ratio 1.2 RATIO Activated Partial Thromboplast Time 36.9 SEC Blood Urea Nitrogen 17 MG/DL Creatinine 0.90 MG/DL Random Glucose 107 MG/DL Total Protein 5.3 GM/DL Albumin 2.0 GM/DL Calcium Level 8.0 MG/DL Phosphorus Level 2.5 MG/DL Magnesium Level 2.2 MG/DL Alkaline Phosphatase 45 U/L Aspartate Amino Transf (AST/SGOT) 7 U/L Alanine Aminotransferase (ALT/SGPT) 37 U/L Lactate Dehydrogenase 122 U/L Total Bilirubin 2.2 MG/DL Sodium Level 135 MEQ/L Potassium Level 3.7 MEQ/L Chloride Level 103 MEQ/L Carbon Dioxide Level 26.6 MEQ/L Anion Gap 5 MEQ/L Estimat Glomerular Filtration Rate 83 ML/MIN Culture Results Microbiology Date/Time Source Procedure Growth Status 05/26/17 21:55 Blood Line Aerobic Blood Culture Pending Received 05/26/17 21:55 Blood Line Anaerobic Blood Culture Pending Received 05/26/17 20:51 Blood Line Aerobic Blood Culture Pending Received 05/26/17 20:51 Blood Line Anaerobic Blood Culture Pending Received 05/25/17 19:57 Blood Peripheral Aerobic Blood Culture - Preliminary NO GROWTH IN 1 DAY Resulted 05/25/17 19:57 Anaerobic Blood Culture - Preliminary Gram Positive Cocci Resulted 05/25/17 19:55 Blood Other Aerobic Blood Culture - Preliminary Staphylococcus Epidermidis Resulted 05/25/17 19:55 Blood Other Anaerobic Blood Culture - Preliminary NO GROWTH IN 1 DAY Resulted Administered Medications Medications (Trade) Dose Ordered Sig/Ivelisse Route PRN Reason Start Time Stop Time Status Last Admin Dose Admin Acetaminophen (Tylenol) 650 mg Q4H PRN PO fever>100.4 05/15/17 13:00 05/19/17 15:00 Citalopram Hydrobromide (CeleXA) 20 mg DAILY PO 05/16/17 09:00 05/27/17 08:37 Pantoprazole Sodium (Protonix) 20 mg DAILY PO 05/16/17 09:00 05/27/17 08:37 Ondansetron HCl (Zofran Inj) 4 mg Q6HR PRN IV PUSH nausea 05/15/17 14:00 05/16/17 10:30 Sodium Chloride (NS Flush) 5 ml UNSCH PRN IVF SEE PROTOCOL 05/15/17 15:00 05/26/17 21:47 Trimethoprim/ Sulfamethoxazole (Bactrim Ds 800-160 Mg) 1 tab MoWeFr@09 PO 05/16/17 09:00 Future Hold 05/25/17 08:37 Fluconazole (Diflucan) 100 mg DAILY PO 05/16/17 09:00 05/27/17 08:37 Acyclovir (Zovirax) 400 mg BID PO 05/16/17 09:00 05/27/17 08:37 Multi-Ingredient Mouthwash/Gargle (Magic Mouthwash Adult Liq) 5 ml QID SWISH-SWAL 05/16/17 13:00 05/27/17 08:36 Megestrol Acetate (Megace Liq) 300 mg DAILY PO 05/16/17 14:00 05/27/17 08:51 Alprazolam (Xanax) 1 mg HS PO 05/20/17 21:00 06/09/17 09:59 05/26/17 21:47 Alprazolam (Xanax) 0.5 mg Q8H PRN PO anxiety 05/20/17 10:15 05/25/17 08:36 Aminocaproic Acid (Amicar) 1,000 mg Q6HR PO 05/21/17 12:00 05/27/17 05:29 Magnesium Hydroxide (Milk Of Magnesia Liq) 30 ml DAILY PRN PO CONSTIPATION 05/21/17 11:30 05/21/17 16:54 Acetaminophen/ Hydrocodone Bitart ([place] 7.5-325 Mg) 1 tab Q4H PRN PO PAIN SCALE 4 TO 10 05/25/17 10:30 05/26/17 21:48 Vancomycin HCl 1500 mg/Sodium Chloride 515 ml @ 250 mls/hr Q12H IV 05/26/17 08:00 05/27/17 08:37 Piperacillin Sod/ Tazobactam Sod 50 ml @ 100 mls/hr Q6H IV 05/26/17 14:00 05/27/17 08:37 Objective Remarks GENERAL: Elderly male lying supine in bed in [facility]. appears well and bright. not acutely ill appearing. SKIN: Warm and dry. HEAD: Normocephalic. EYES: No injection or drainage. NECK: Supple, trachea midline. CARDIOVASCULAR: Regular rate and rhythm RESPIRATORY: Breath sounds equal bilaterally. No accessory muscle use. GASTROINTESTINAL: Abdomen soft, non-tender, nondistended. EXTREMITIES: No cyanosis. left knee with swelling. right forearm swelling and redness around medial antecubital fossa. Right shoulder: no swelling or skin changes. NEUROLOGICAL: awake and alert, normal speech. moving all extremities. Assessment/Plan Problem List: (1) AML (acute myeloblastic leukemia) ICD Codes: C92.00 - Acute myeloblastic leukemia, not having achieved remission Plan: 05/15/17: Admission. given Hydrea. [facility] performed Leukapheresis bringing WBC from >100K to 44K. 05/16/17: D1. SONIA-C + [facility] [place]. 1 unit pRBC 05/17/17: D2. no transfusion. tolerating chemo 05/18/17: D3. no transfusion. 05/19/17: D4. 1 unit platelets today. No evidence of tumor lysis. Pt finished idarubicin yesterday. Continue SONIA-C. 05/20/17 D5: 1 unit platelets, 2 units PRBC's today. Will add on xanax prn and 1mg xanax at HS scheduled. Continue chemo, continue to monitor blood counts. 05/21/17.D6: No transfusion, start lactulose for Bm, continue chemo 05/22/17:D7 05/23/17: D8: Pt to have final bag chemo hung tonight. Transfuse 1 unit irradiated platelets, 1 unit irradiated PRBC's today. 05/24/17: D9: We'll transfuse 1 unit irradiated packed red blood cells today for hemoglobin of 6.9 05/25/17: D10. transfuse 1 unit platelets. pain in left knee and right shoulder. swelling in left knee. 05/26/17: D11. 1 unit platelets, 1 unit pRBC. 05/27/17: D12. 1 unit pRBC. 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 --He presented with hyperleukocytosis and acute blast crises. --on Allopurinol 100mg PO BID for prophylaxis (2) Pancytopenia ICD Codes: D61.818 - Other pancytopenia Status: Acute Plan: --transfuse him for hemoglobin of 7 or less. -- irradiated/CMV-negative blood products. --transfuse for platelet count of 10 or less. --Diflucan 100mg daily, Acyclovir 400mg PO BID (3) Coagulopathy ICD Codes: D68.9 - Coagulation defect, unspecified Status: Acute Plan: --Check daily fibrinogen levels. --check his coags and LDH and haptoglobin [id number]. (4) Swelling of left knee joint ICD Codes: M25.462 - Effusion, left knee Plan: --diff dx includes but is not limited to gout vs pseudogout, vs. hemarthrosis vs. septic joint vs. arthritis. --transfuse platelets --MRI of knee shows joint effusion, unable to tap until counts recover --on Vanco/Rocephin empirically (5) right forearm swelling Plan: --no pain at site of swelling or redness. --?infiltration --check U/S arm --already on Vanco + Zosyn Assessment 72y/o male with acute myeloid leukemia with blast crisis. 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 Plan 1. continue antibiotics 2. 1 unit pRBC 3. monitor CBC 4. d/c IV right arm 4. check u/s right arm Attending Statement The exam, history, and the medical decision-making described in the above note were completed with the assistance of the mid-level provider. I reviewed and agree with the findings presented. I attest that I had a [id number] encounter with the patient on the same day, and personally performed and documented my assessment and findings in the medical record. Feeling better this am, he is eating breakfast. Left knee and right shoulder pain better this am. BCX + staph epi, ?contaminant, repeat BCX pending. Pt does not appear septic. Continue abx and follow BCX. Continue transfusion support. May need to aspirate the left knee if he has any sign of sepsis. Problem Qualifiers (1) AML (acute myeloblastic leukemia): Qualified Codes: C92.00 - Acute myeloblastic leukemia, not having achieved remission Oma Chavez May 27, 2017 09:58 Caleb Edwards MD May 27, 2017 11:38
[2017-05-27] MEDS: diphenhydrAMINE HCL 25 MG CAP PO PRN (15:15)
[2017-05-27] MEDS: ACETAMINOPHEN/HYDROcodone 325 MG/7.5 MG TAB PO PRN ×2 (15:23→19:57)
--- NOTE | 2017-05-27 18:17 | RADRPT ---
EXAM DATE/TIME: 05/27/2017 17:01 [facility] COMPARISON: No previous studies available for comparison. INDICATIONS : Edema. MEDICAL HISTORY : Hernia, hiatal. Arthritis. T-cell lymphoma. Herniated discs. Blood dyscrasias. SURGICAL HISTORY : Cholecystectomy. Lithotripsy. Chemotherapy. ENCOUNTER: Initial ACUITY: 4 - 6 days PAIN SCORE: 8/10 LOCATION: Right arm. FINDINGS: There is occlusive thrombus in the right cephalic vein extending from the mid forearm centrally to th e antecubital fossa. There is spontaneous flow documented in the brachial, basilic, central cephalic, axillary, and subcla vian veins. The vessels are compressible and augmentation response is documented. No filling defect s are seen. The flow is phasic with respiration. Direction of flow in the jugular vein is caudal. CONCLUSION: 1. Acute thrombosis of the cephalic vein in the right forearm. 2. Otherwise, no sonographic evidence for right upper extremity DVT. Yunier Lange MD on May 27, 2017 at 18:14 Board Certified Radiologist. This report was verified electronically.
[2017-05-27] MEDS: ALPRAZolam 1 MG TAB PO SCH (20:53)
[2017-05-28] VITALS (13 sets, daily range): BP systolic 99–116; BP diastolic 63–67; PULSE 60–78; RESP 16–18; TEMP 96.1–97.6; O2SAT 98–99
[2017-05-28] MEDS: PIPERACIL-TAZO 3.375 GM PREMIX 50 ML IV SCH ×2 (01:54→09:53)
[2017-05-28] MEDS: AMINOCAPROIC ACID 500 MG TAB PO SCH ×4 (05:21→23:48)
[2017-05-28 06:10] LABS: HEMATOCRIT 21.9 % (39.0-51.0); MEAN CELL VOLUME 84.7 FL (80.0-100.0); MEAN CORPUSCULAR HEMOGLOBIN 29.2 PG (27.0-34.0); MEAN CORPUSCULAR HGB CONC 34.5 % (32.0-36.0); RED BLOOD COUNT 2.59 MIL/MM3 (4.50-5.90); RED CELL DISTRIBUTION WIDTH 15.6 % (11.6-17.2); WHITE BLOOD COUNT 0.1 TH/MM3 (4.0-11.0)
[2017-05-28 06:20] LABS: ALT (GPT) 37 U/L (12-78); ANION GAP 6 MEQ/L (5-15); AST (GOT) 11 U/L (15-37); BICARBONATE 26.1 MEQ/L (21.0-32.0); BLOOD UREA NITROGEN 15 MG/DL (7-18); CHLORIDE 104 MEQ/L (98-107); GLOMERULAR FILTRATION RATE 92 ML/MIN (>89); POTASSIUM 3.7 MEQ/L (3.5-5.1); SODIUM (NA) 136 MEQ/L (136-145)
[2017-05-28 06:22] LABS: ALKALINE PHOSPHATASE 52 U/L (45-117); HEMO FLAGS AUTO DIFF; PLATELET COUNT 18 TH/MM3 (150-450); TOTAL BILIRUBIN ADULT 2.4 MG/DL (0.2-1.0)
[2017-05-28 07:44] LABS: PLATELET ESTIMATE SMEAR LOW (NORMAL); PLATELET MORPHOLOGY NORMAL (NORMAL); POLYS (SEG NEUTROPHILS) 10 % (16-70); SCAN/DIFF FINAL DIFF MANUAL; WBC DIFF SAMPLE 10
[2017-05-28] MEDS: NYSTAT/DIPHENHY/LIDO MOUTHWASH (Adult) 120ML SWISH-SWAL SCH ×4 (09:54→21:29)
[2017-05-28] MEDS: MEGESTROL ACETATE SUSP 400 MG/10 ML CUP PO SCH (09:54)
[2017-05-28] MEDS: FLUCONAZOLE 100 MG TAB PO SCH (09:55)
[2017-05-28] MEDS: PANTOPRAZOLE SOD 20 MG DELAYED RELEASE TAB PO SCH (09:55)
[2017-05-28] MEDS: ACYCLOVIR 200 MG CAP PO SCH ×2 (09:55→21:29)
[2017-05-28] MEDS: CITALOPRAM HYDROBROMIDE 20 MG TAB PO SCH (09:55)
[2017-05-28] MEDS: ACETAMINOPHEN/HYDROcodone 325 MG/7.5 MG TAB PO PRN ×3 (10:03→23:50)
--- NOTE | 2017-05-28 10:56 | HHI.PR ---
Subjective Subjective Remarks Resting in the bed Drowsy but responds to verbal stimuli Eating 80% of food, appetite good Pain management for right shoulder and left knee Review of Systems Constitutional Constitutional: Fatigue (easily), Weakness (generalized mild) Constitutional Remarks 10 point ROS reviewed any positives noted Hematologic/Lymphatic Heme/Lymph Remarks No rash noted Musculoskeletal MS: Weakness (minimal generalized) MS Remarks Left knee edema, sore to movement Right shoulder sore to movement, Right forearm mild edema, new thrombus right arm Neurologic Neurologic Remarks Fatigue tired sensation Psychiatric Psychiatric: Normal Mood, Anxiety (insomnia) Vitals/Results Vital Signs Vital Signs Date Time Temp Pulse Resp B/P (MAP) Pulse Ox O2 Delivery O2 Flow Rate FiO2 05/28/17 08:00 97.6 76 16 109/65 (80) 99 05/28/17 04:35 97.0 65 17 101/63 (76) 98 05/28/17 04:02 60 05/28/17 02:57 65 05/28/17 00:35 96.7 68 17 99/67 (78) 98 05/28/17 00:03 65 05/27/17 20:57 16 05/27/17 20:30 96.9 79 18 105/64 (78) 98 05/27/17 20:16 78 05/27/17 16:13 97.5 90 18 114/65 97 05/27/17 16:00 97.5 82 22 115/74 (88) 94 CBC/BMP: 05/28/17 0520 05/28/17 0520 Lab Results Laboratory Tests Test 05/28/17 05:20 White Blood Count 0.1 TH/MM3 Red Blood Count 2.59 MIL/MM3 Hemoglobin 7.6 GM/DL Hematocrit 21.9 % Mean Corpuscular Volume 84.7 FL Mean Corpuscular Hemoglobin 29.2 PG Mean Corpuscular Hemoglobin Concent 34.5 % Red Cell Distribution Width 15.6 % Platelet Count 18 TH/MM3 Mean Platelet Volume 6.4 FL CBC Comment AUTO DIFF Differential Total Cells Counted 10 Neutrophils % (Manual) 10 % Lymphocytes % 90 % Neutrophils # (Manual) 0.0 TH/MM3 Differential Comment FINAL DIFF MANUAL Platelet Estimate LOW Platelet Morphology Comment NORMAL Erythrocyte Sedimentation Rate GREATER THAN 140 mm/hr Blood Urea Nitrogen 15 MG/DL Creatinine 0.83 MG/DL Random Glucose 96 MG/DL Total Protein 5.3 GM/DL Albumin 1.8 GM/DL Calcium Level 7.9 MG/DL Alkaline Phosphatase 52 U/L Aspartate Amino Transf (AST/SGOT) 11 U/L Alanine Aminotransferase (ALT/SGPT) 37 U/L Total Bilirubin 2.4 MG/DL Sodium Level 136 MEQ/L Potassium Level 3.7 MEQ/L Chloride Level 104 MEQ/L Carbon Dioxide Level 26.1 MEQ/L Anion Gap 6 MEQ/L Estimat Glomerular Filtration Rate 92 ML/MIN Current Medications Administered Medications Medications (Trade) Dose Ordered Sig/Ivelisse Route PRN Reason Start Time Stop Time Status Last Admin Dose Admin Acetaminophen (Tylenol) 650 mg Q4H PRN PO fever>100.4 05/15/17 13:00 05/19/17 15:00 Citalopram Hydrobromide (CeleXA) 20 mg DAILY PO 05/16/17 09:00 05/28/17 09:55 Pantoprazole Sodium (Protonix) 20 mg DAILY PO 05/16/17 09:00 05/28/17 09:55 Ondansetron HCl (Zofran Inj) 4 mg Q6HR PRN IV PUSH nausea 05/15/17 14:00 05/16/17 10:30 Sodium Chloride (NS Flush) 5 ml UNSCH PRN IVF SEE PROTOCOL 05/15/17 15:00 05/26/17 21:47 Trimethoprim/ Sulfamethoxazole (Bactrim Ds 800-160 Mg) 1 tab MoWeFr@09 PO 05/16/17 09:00 Future Hold 05/25/17 08:37 Fluconazole (Diflucan) 100 mg DAILY PO 05/16/17 09:00 05/28/17 09:55 Acyclovir (Zovirax) 400 mg BID PO 05/16/17 09:00 05/28/17 09:55 Multi-Ingredient Mouthwash/Gargle (Magic Mouthwash Adult Liq) 5 ml QID SWISH-SWAL 05/16/17 13:00 05/28/17 09:54 Megestrol Acetate (Megace Liq) 300 mg DAILY PO 05/16/17 14:00 05/28/17 09:54 Alprazolam (Xanax) 1 mg HS PO 05/20/17 21:00 06/09/17 09:59 05/27/17 20:53 Alprazolam (Xanax) 0.5 mg Q8H PRN PO anxiety 05/20/17 10:15 05/25/17 08:36 Aminocaproic Acid (Amicar) 1,000 mg Q6HR PO 05/21/17 12:00 05/28/17 05:21 Magnesium Hydroxide (Milk Of Magncara Liq) 30 ml DAILY PRN PO CONSTIPATION 05/21/17 11:30 05/21/17 16:54 Acetaminophen/ Hydrocodone Bitart ([place] 7.5-325 Mg) 1 tab Q4H PRN PO PAIN SCALE 4 TO 10 05/25/17 10:30 05/28/17 10:03 Vancomycin HCl 1500 mg/Sodium Chloride 515 ml @ 250 mls/hr Q12H IV 05/26/17 08:00 05/28/17 11:31 Piperacillin Sod/ Tazobactam Sod 50 ml @ 100 mls/hr Q6H IV 05/26/17 14:00 05/28/17 09:53 Diphenhydramine HCl (Benadryl) 25 mg Q4H PRN PO SEE LABEL COMMENTS 05/27/17 07:45 05/27/17 15:15 Physical Exam General General Appearance: Well Developed, Well Nourished, Comfortable (with pain management), Pale (mild), Anxious (much more controlled) Eyes Eye Exam: Pupils Reactive Ears & Nose Ears & Nose Exam: Nasal Mucosa [place] (pale) Throat Throat Exam: Oral Mucosa [place] & Moist (pale) Neck Neck Exam: Neck Supple Pulmonary Resp Exam: Clear Bilaterally, No Distress Cardiology CV Exam: Regular Gastrointestinal/Abdomen GI Exam: Soft, Non-Tender, Bowel Sounds Present Hematologic/Lymphatic Heme Remarks No rash noted Musculoskeletal MS Remarks Left knee swollen, painful to movement and touch, warm Right shoulder sore to touch and movement Integumentary Skin Exam: Warm, Dry Extremeties Extremities Exam: No Edema Neurologic Neuro Exam: Awake, Oriented, Speech Clear Neuro Remarks Pain management effective PUD Prophylasis PUD Remarks PUD prophylaxis Assessment/Plan Assessment/Plan Vital signs reviewed BP 101/63 Labs reviewed, platelets 18, bilirubin 2.4, albumin 1.8, continue to monitor labs Acute myeloblastic leukemia with pancytopenia Appreciate input Dr. Ibanez, monitor for bone marrow recovery Medical management , Bactrim Levaquin Diflucan and acyclovir -completed chemo 05/23 Platelets low today, monitor coagulopathy New thrombus right arm, cephalic vein, monitor labs, elevate right arm at all times GERD [place] esophagus, stable with Protonix by mouth daily Anxiety and depression Celexa 20 mg by mouth daily Xanax PRN , which appears to be effective Left knee and right shoulder pain, probable effusion left knee, patient denies any acute problems in the past couple years unable to have arthrocentesis due to low platelets., Continue antibiotics and appreciate ID assisting with follow-up May need further evaluation once patient is stable from his chemotherapy, pain management appears to be effective Septicemia, unspecified, possible lt. knee, port?, MRI of both joints suggests leukemic infiltration. Appreciate ID input, antibiotic therapy maintenance No SCDs or anticoagulation recommended at this time due to thrombocytopenia PT and OT to increase mobility D/W RN D/W pt D/W Dr. Kaur, seen on his behalf Marcie Summers May 28, 2017 10:56
[2017-05-28] MEDS: VANCOMYCIN INJ 1,500 MG in SODIUM CHLORID 0.9% 500 ML INJ 500 ML IV SCH ×2 (11:31→21:37)
--- NOTE | 2017-05-28 12:08 | PD.ONC.PN ---
Subjective Subjective Remarks Afebrile overnight. patient resting in bed. "I feel fine." No change in left knee. states pain only present when he tries to move the knee. right shoulder without change as well. Objective Data Date Time Temp Pulse Resp B/P (MAP) Pulse Ox O2 Delivery O2 Flow Rate FiO2 05/28/17 08:00 97.6 76 16 109/65 (80) 99 05/28/17 04:35 97.0 65 17 101/63 (76) 98 05/28/17 04:02 60 05/28/17 02:57 65 05/28/17 00:35 96.7 68 17 99/67 (78) 98 05/28/17 00:03 65 05/27/17 20:57 16 05/27/17 20:30 96.9 79 18 105/64 (78) 98 05/27/17 20:16 78 05/27/17 16:13 97.5 90 18 114/65 97 05/27/17 16:00 97.5 82 22 115/74 (88) 94 05/28/17 05/28/17 05/28/17 07:00 15:00 23:00 Intake Total 240 ml Output Total 425 ml Balance -185 ml Result Diagram: 05/28/17 0520 05/28/17 0520 Laboratory Results Laboratory Tests Test 05/28/17 05:20 White Blood Count 0.1 TH/MM3 Red Blood Count 2.59 MIL/MM3 Hemoglobin 7.6 GM/DL Hematocrit 21.9 % Mean Corpuscular Volume 84.7 FL Mean Corpuscular Hemoglobin 29.2 PG Mean Corpuscular Hemoglobin Concent 34.5 % Red Cell Distribution Width 15.6 % Platelet Count 18 TH/MM3 Mean Platelet Volume 6.4 FL CBC Comment AUTO DIFF Differential Total Cells Counted 10 Neutrophils % (Manual) 10 % Lymphocytes % 90 % Neutrophils # (Manual) 0.0 TH/MM3 Differential Comment FINAL DIFF MANUAL Platelet Estimate LOW Platelet Morphology Comment NORMAL Erythrocyte Sedimentation Rate GREATER THAN 140 mm/hr Blood Urea Nitrogen 15 MG/DL Creatinine 0.83 MG/DL Random Glucose 96 MG/DL Total Protein 5.3 GM/DL Albumin 1.8 GM/DL Calcium Level 7.9 MG/DL Alkaline Phosphatase 52 U/L Aspartate Amino Transf (AST/SGOT) 11 U/L Alanine Aminotransferase (ALT/SGPT) 37 U/L Total Bilirubin 2.4 MG/DL Sodium Level 136 MEQ/L Potassium Level 3.7 MEQ/L Chloride Level 104 MEQ/L Carbon Dioxide Level 26.1 MEQ/L Anion Gap 6 MEQ/L Estimat Glomerular Filtration Rate 92 ML/MIN Culture Results Microbiology Date/Time Source Procedure Growth Status 05/26/17 21:55 Blood Line Aerobic Blood Culture - Preliminary Gram Positive Cocci Resulted 05/26/17 21:55 Blood Line Anaerobic Blood Culture - Preliminary NO GROWTH IN 2 DAYS Resulted 05/26/17 20:51 Blood Line Aerobic Blood Culture - Preliminary Gram Positive Cocci Resulted 05/26/17 20:51 Blood Line Anaerobic Blood Culture - Preliminary NO GROWTH IN 2 DAYS Resulted 05/25/17 19:57 Blood Peripheral Aerobic Blood Culture - Preliminary Gram Positive Cocci Resulted 05/25/17 19:57 Anaerobic Blood Culture - Preliminary Staph Sp Coagulase Negative Resulted 05/25/17 19:55 Blood Other Aerobic Blood Culture - Preliminary Staphylococcus Epidermidis Resulted 05/25/17 19:55 Anaerobic Blood Culture - Preliminary Gram Positive Cocci Resulted Administered Medications Medications (Trade) Dose Ordered Sig/Ivelisse Route PRN Reason Start Time Stop Time Status Last Admin Dose Admin Acetaminophen (Tylenol) 650 mg Q4H PRN PO fever>100.4 05/15/17 13:00 05/19/17 15:00 Citalopram Hydrobromide (CeleXA) 20 mg DAILY PO 05/16/17 09:00 05/28/17 09:55 Pantoprazole Sodium (Protonix) 20 mg DAILY PO 05/16/17 09:00 05/28/17 09:55 Ondansetron HCl (Zofran Inj) 4 mg Q6HR PRN IV PUSH nausea 05/15/17 14:00 05/16/17 10:30 Sodium Chloride (NS Flush) 5 ml UNSCH PRN IVF SEE PROTOCOL 05/15/17 15:00 05/26/17 21:47 Trimethoprim/ Sulfamethoxazole (Bactrim Ds 800-160 Mg) 1 tab MoWeFr@09 PO 05/16/17 09:00 Future Hold 05/25/17 08:37 Fluconazole (Diflucan) 100 mg DAILY PO 05/16/17 09:00 05/28/17 09:55 Acyclovir (Zovirax) 400 mg BID PO 05/16/17 09:00 05/28/17 09:55 Multi-Ingredient Mouthwash/Gargle (Magic Mouthwash Adult Liq) 5 ml QID SWISH-SWAL 05/16/17 13:00 05/28/17 09:54 Megestrol Acetate (Megace Liq) 300 mg DAILY PO 05/16/17 14:00 05/28/17 09:54 Alprazolam (Xanax) 1 mg HS PO 05/20/17 21:00 06/09/17 09:59 05/27/17 20:53 Alprazolam (Xanax) 0.5 mg Q8H PRN PO anxiety 05/20/17 10:15 05/25/17 08:36 Aminocaproic Acid (Amicar) 1,000 mg Q6HR PO 05/21/17 12:00 05/28/17 05:21 Magnesium Hydroxide (Milk Of Magnesia Liq) 30 ml DAILY PRN PO CONSTIPATION 05/21/17 11:30 05/21/17 16:54 Acetaminophen/ Hydrocodone Bitart ([place] 7.5-325 Mg) 1 tab Q4H PRN PO PAIN SCALE 4 TO 10 05/25/17 10:30 05/28/17 10:03 Vancomycin HCl 1500 mg/Sodium Chloride 515 ml @ 250 mls/hr Q12H IV 05/26/17 08:00 05/27/17 19:51 Piperacillin Sod/ Tazobactam Sod 50 ml @ 100 mls/hr Q6H IV 05/26/17 14:00 05/28/17 09:53 Diphenhydramine HCl (Benadryl) 25 mg Q4H PRN PO SEE LABEL COMMENTS 05/27/17 07:45 05/27/17 15:15 Objective Remarks GENERAL: Elderly male lying supine in bed in [facility]. appears well and bright. not acutely ill appearing. SKIN: Warm and dry. HEAD: Normocephalic. EYES: No injection or drainage. NECK: Supple, trachea midline. CARDIOVASCULAR: Regular rate and rhythm RESPIRATORY: Breath sounds equal bilaterally. No accessory muscle use. GASTROINTESTINAL: Abdomen soft, non-tender, nondistended. EXTREMITIES: No cyanosis. no change in the swelling in the left knee. right forearm swelling around medical elbow persistent. Right shoulder: no swelling or skin changes. NEUROLOGICAL: aox3. no obvious focal deficit. moving all extremities. Assessment/Plan Problem List: (1) AML (acute myeloblastic leukemia) ICD Codes: C92.00 - Acute myeloblastic leukemia, not having achieved remission Plan: 05/15/17: Admission. given Hydrea. [facility] performed Leukapheresis bringing WBC from >100K to 44K. 05/16/17: D1. SONIA-C + Maria Del Rosario. 1 unit pRBC 05/17/17: D2. no transfusion. tolerating chemo 05/18/17: D3. no transfusion. 05/19/17: D4. 1 unit platelets today. No evidence of tumor lysis. Pt finished idarubicin yesterday. Continue SONIA-C. 05/20/17 D5: 1 unit platelets, 2 units PRBC's today. Will add on xanax prn and 1mg xanax at HS scheduled. Continue chemo, continue to monitor blood counts. 05/21/17.D6: No transfusion, start lactulose for Bm, continue chemo 05/22/17:D7 05/23/17: D8: Pt to have final bag chemo hung tonight. Transfuse 1 unit irradiated platelets, 1 unit irradiated PRBC's today. 05/24/17: D9: We'll transfuse 1 unit irradiated packed red blood cells today for hemoglobin of 6.9 05/25/17: D10. transfuse 1 unit platelets. pain in left knee and right shoulder. swelling in left knee. 05/26/17: D11. 1 unit platelets, 1 unit pRBC. 05/27/17: D12. 1 unit pRBC. 05/28/17: D13. 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 --He presented with hyperleukocytosis and acute blast crises. --on Allopurinol 100mg PO BID for prophylaxis (2) Pancytopenia ICD Codes: D61.818 - Other pancytopenia Status: Acute Plan: --transfuse him for hemoglobin of 7 or less. -- irradiated/CMV-negative blood products. --transfuse for platelet count of 10 or less. --Diflucan 100mg daily, Acyclovir 400mg PO BID (3) Coagulopathy ICD Codes: D68.9 - Coagulation defect, unspecified Status: Acute Plan: --Check daily fibrinogen levels. --check his coags and LDH and haptoglobin [id number]. (4) Swelling of left knee joint ICD Codes: M25.462 - Effusion, left knee Plan: --diff dx includes but is not limited to gout vs pseudogout, vs. hemarthrosis vs. septic joint vs. arthritis. --MRI of knee shows joint effusion, unable to tap until counts recover --on abx. ID following. (5) right forearm swelling Plan: --no pain at site of swelling or redness. --?infiltration --check U/S arm --already on Vanco + Zosyn Assessment 72y/o male with acute myeloid leukemia with blast crisis. 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 Plan 1. continue antibiotics 2. warm compresses right arm superficial thrombus 3. monitor CBC Attending Statement The exam, history, and the medical decision-making described in the above note were completed with the assistance of the mid-level provider. I reviewed and agree with the findings presented. I attest that I had a [id number] encounter with the patient on the same day, and personally performed and documented my assessment and findings in the medical record. Remains pancytopenic with severe neutropenia Septic arthritis with gram positive cocci bacteremia Susceptible to Vancomycin Would hold off on removing port Repeat blood cultures pending obtain 2 D echocardiogram RUE cephalic vein thrombosis apply warm compresses d/w rn o/n events reviewed Problem Qualifiers (1) AML (acute myeloblastic leukemia): Qualified Codes: C92.00 - Acute myeloblastic leukemia, not having achieved remission Oma Chavez May 28, 2017 11:31 Shar Ibanez MD May 28, 2017 23:56
--- NOTE | 2017-05-28 15:46 | HHI.PR ---
Addendum to Inpatient Note Additional Information pt seen around 1545 full note to follow Marta Montilla MD May 28, 2017 15:46
--- NOTE | 2017-05-28 18:04 | HHI.IDPN ---
Subjective Subjective Remarks no fever R shoulder better L knee can weightbare, + painful ROM More + blood clx with Staph epi Antibiotics zosyn vanco Allergies: Coded Allergies: No Known Allergies (Unverified , 05/10/17) Objective . Vital Signs Date Time Temp Pulse Resp B/P (MAP) Pulse Ox O2 Delivery O2 Flow Rate FiO2 05/28/17 16:14 74 05/28/17 16:00 96.4 76 18 110/67 (81) 98 05/28/17 13:53 16 05/28/17 12:09 67 05/28/17 12:00 96.1 64 18 105/64 (78) 98 05/28/17 08:17 70 05/28/17 08:00 97.6 76 16 109/65 (80) 99 05/28/17 04:35 97.0 65 17 101/63 (76) 98 05/28/17 04:02 60 05/28/17 02:57 65 05/28/17 00:35 96.7 68 17 99/67 (78) 98 05/28/17 00:03 65 05/27/17 20:30 96.9 79 18 105/64 (78) 98 05/27/17 20:16 78 05/28/17 05/28/17 05/29/17 15:00 23:00 07:00 Intake Total 550 ml Output Total 500 ml Balance -500 ml 550 ml IV Total 550 ml Output Urine Total 500 ml . Laboratory Tests Test 05/27/17 05:35 05/28/17 05:20 White Blood Count 0.1 TH/MM3 0.1 TH/MM3 Red Blood Count 2.39 MIL/MM3 2.59 MIL/MM3 Hemoglobin 7.0 GM/DL 7.6 GM/DL Hematocrit 20.4 % 21.9 % Mean Corpuscular Volume 85.2 FL 84.7 FL Mean Corpuscular Hemoglobin 29.3 PG 29.2 PG Mean Corpuscular Hemoglobin Concent 34.4 % 34.5 % Red Cell Distribution Width 15.2 % 15.6 % Platelet Count 26 TH/MM3 18 TH/MM3 Mean Platelet Volume 6.7 FL 6.4 FL CBC Comment AUTO DIFF AUTO DIFF Differential Total Cells Counted 10 10 Lymphocytes % 100 % 90 % Neutrophils # (Manual) 0.0 TH/MM3 0.0 TH/MM3 Differential Comment FINAL DIFF MANUAL FINAL DIFF MANUAL Platelet Estimate LOW LOW Platelet Morphology Comment NORMAL NORMAL Erythrocyte Sedimentation Rate GREATER THAN 140 mm/hr GREATER THAN 140 mm/hr Haptoglobin 306 MG/DL Neutrophils % (Manual) 10 % Laboratory Tests Test 05/27/17 05:35 05/28/17 05:20 Blood Urea Nitrogen 17 MG/DL 15 MG/DL Creatinine 0.90 MG/DL 0.83 MG/DL Random Glucose 107 MG/DL 96 MG/DL Total Protein 5.3 GM/DL 5.3 GM/DL Albumin 2.0 GM/DL 1.8 GM/DL Calcium Level 8.0 MG/DL 7.9 MG/DL Phosphorus Level 2.5 MG/DL Magnesium Level 2.2 MG/DL Alkaline Phosphatase 45 U/L 52 U/L Aspartate Amino Transf (AST/SGOT) 7 U/L 11 U/L Alanine Aminotransferase (ALT/SGPT) 37 U/L 37 U/L Lactate Dehydrogenase 122 U/L Total Bilirubin 2.2 MG/DL 2.4 MG/DL Sodium Level 135 MEQ/L 136 MEQ/L Potassium Level 3.7 MEQ/L 3.7 MEQ/L Chloride Level 103 MEQ/L 104 MEQ/L Carbon Dioxide Level 26.6 MEQ/L 26.1 MEQ/L Anion Gap 5 MEQ/L 6 MEQ/L Estimat Glomerular Filtration Rate 83 ML/MIN 92 ML/MIN Microbiology Date/Time Source Procedure Growth Status 05/26/17 21:55 Blood Line Aerobic Blood Culture - Preliminary Gram Positive Cocci Resulted 05/26/17 21:55 Blood Line Anaerobic Blood Culture - Preliminary NO GROWTH IN 2 DAYS Resulted 05/26/17 20:51 Blood Line Aerobic Blood Culture - Preliminary Staphylococcus Epidermidis Resulted 05/26/17 20:51 Blood Line Anaerobic Blood Culture - Preliminary NO GROWTH IN 2 DAYS Resulted 05/25/17 19:57 Blood Peripheral Aerobic Blood Culture - Final Staphylococcus Epidermidis Complete 05/25/17 19:57 Anaerobic Blood Culture - Final Staphylococcus Epidermidis Complete 05/25/17 19:55 Blood Other Aerobic Blood Culture - Final Staphylococcus Epidermidis Complete 05/25/17 19:55 Anaerobic Blood Culture - Final Staphylococcus Epidermidis Complete Imaging Last Impressions Upper Extremity Ultrasound 05/27/17 0000 Signed Impressions: Service Date/Time: Saturday, May 27, 2017 17:01 - CONCLUSION: 1. Acute thrombosis of the cephalic vein in the right forearm. 2. Otherwise, no sonographic evidence for right upper extremity DVT. Yunier Bozorgmanesh, MD Shoulder X-Ray 05/25/17 0000 Signed Impressions: Service Date/Time: Thursday, May 25, 2017 14:18 - CONCLUSION: Negative for fracture. MRI of the knee had shown substantial leukemic infiltration. Jason Crawford MD FACR Knee X-Ray 05/25/17 0000 Signed Impressions: Service Date/Time: Thursday, May 25, 2017 14:21 - CONCLUSION: Negative for fracture. Moderate joint effusion. Jason Crawford MD FACR Knee MRI 05/25/17 0000 Signed Impressions: Service Date/Time: Thursday, May 25, 2017 13:35 - CONCLUSION: Joint effusion as described above intense enhancement. Considerations would include both inflammatory process as well as involvement with leukemia Marrow placement show intense enhancement consistent with leukemic infiltration. Jason Crawford MD FACR Chest X-Ray 05/16/17 0700 Signed Impressions: Service Date/Time: Tuesday, May 16, 2017 07:41 - CONCLUSION: The lungs are clear. No evidence of pneumothorax. Ethan Sabillon MD [facility] 05/15/17 0000 Signed Impressions: Service Date/Time: Monday, May 15, 2017 14:57 - CONCLUSION: Normal study. Ejection fraction 72%% Man Burden MD Catheter Placement X-Ray 05/15/17 0000 Signed Impressions: Service Date/Time: Monday, May 15, 2017 17:46 - CONCLUSION: Uncomplicated line placement as above. Man Burden MD Physical Exam CONSTITUTIONAL/GENERAL: This is an adequately nourished patient, in no apparent distress. TUBES/LINES/DRAINS: infusaport in place R chest, looks OK, not tender to palpation SKIN: No jaundice, petechial rash BLE . . Skin temperature appropriate. Not diaphoretic. HEAD: Atraumatic. Normocephalic. EYES: Pupils equal and round and reactive. Extraocular motions intact. No scleral icterus. No injection or drainage. Fundi not examined. ENT: Hearing grossly normal. Nose without bleeding or purulent drainage. Throat without visible erythema, exudates, masses, or lesions. NECK: Trachea midline. Supple, nontender. . CARDIOVASCULAR: Regular rate and rhythm without murmurs, gallops, or rubs. No JVD. Peripheral pulses symmetric. RESPIRATORY/CHEST: Symmetric, unlabored respirations. Clear to auscultation. Breath sounds equal bilaterally. No wheezes, rales, or rhonchi. GASTROINTESTINAL: Abdomen soft, non-tender, nondistended. No hepato-splenomegaly , or palpable masses. No guarding. Bowel sounds present. GENITOURINARY: Without palpable bladder distension. MUSCULOSKELETAL: Extremities without clubbing, cyanosis, or edema. + L knee effusion smaller . NO redness ROM limited severely 2/2 pain No erythema No calf tenderness. No mottling or clubbing. R shoulder also w/o e/o effusion LYMPHATICS: No palpable cervical or supraclavicular adenopathy. NEUROLOGICAL: Awake and alert. Motor and sensory grossly within normal limits. Follows commands. Clear speech. Moves all extremities. PSYCHIATRIC: No obvious anxiety/depression. no apparent hallucinations or other psychotic thought process. Assessment & Plan Remarks MDS with leukemic tranformation sp chemo, neutropenic L knee effusion, doubt septic arthritis - also image dw radiology: not likely septic arthritis Staph epi bacteremia source is likely PORT sustained - cont vancomycin dc Zoyn - repeat blood clx to ensure resolution of bactermeia - might require removal of PORT if persisteant bactermia despite of vancomycin - L knee arthrocenthesis if still concerns of septic arthritis arise Marta Montilla MD May 28, 2017 18:04
[2017-05-28] MEDS: ALPRAZolam 1 MG TAB PO SCH (21:29)
[2017-05-29] VITALS (9 sets, daily range): BP systolic 98–120; BP diastolic 61–69; PULSE 68–96; RESP 16–19; TEMP 96.3–97.3; O2SAT 96–99
[2017-05-29] MEDS: AMINOCAPROIC ACID 500 MG TAB PO SCH ×4 (05:19→23:37)
[2017-05-29] MEDS: ACETAMINOPHEN/HYDROcodone 325 MG/7.5 MG TAB PO PRN ×3 (05:20→20:41)
[2017-05-29 06:43] LABS: MEAN CELL VOLUME 84.3 FL (80.0-100.0); MEAN CORPUSCULAR HEMOGLOBIN 29.4 PG (27.0-34.0); MEAN CORPUSCULAR HGB CONC 34.9 % (32.0-36.0); RED BLOOD COUNT 2.32 MIL/MM3 (4.50-5.90); RED CELL DISTRIBUTION WIDTH 15.3 % (11.6-17.2); WHITE BLOOD COUNT 0.2 TH/MM3 (4.0-11.0)
[2017-05-29 06:48] LABS: HEMO FLAGS AUTO DIFF
[2017-05-29 06:49] LABS: HEMATOCRIT 19.6 % (39.0-51.0)
[2017-05-29 06:50] LABS: PLATELET COUNT 11 TH/MM3 (150-450)
[2017-05-29 06:54] LABS: APTT (PATIENT) 35.1 SEC (24.3-30.1); INTERNATIONAL NORMALIZED RATIO 1.2 RATIO; PROTHROMBIN TIME - PATIENT 12.8 SEC (9.8-11.6)
[2017-05-29] MEDS: VANCOMYCIN INJ 1,500 MG in SODIUM CHLORID 0.9% 500 ML INJ 500 ML IV SCH ×2 (08:09→20:47)
[2017-05-29 08:23] LABS: PLATELET ESTIMATE SMEAR RARE (NORMAL); PLATELET MORPHOLOGY NORMAL (NORMAL); SCAN/DIFF FINAL DIFF MANUAL; WBC DIFF SAMPLE 10
[2017-05-29] MEDS: diphenhydrAMINE HCL 25 MG CAP PO PRN (10:18)
[2017-05-29] MEDS: FLUCONAZOLE 100 MG TAB PO SCH (10:18)
[2017-05-29] MEDS: ACYCLOVIR 200 MG CAP PO SCH ×2 (10:18→20:40)
[2017-05-29] MEDS: PANTOPRAZOLE SOD 20 MG DELAYED RELEASE TAB PO SCH (10:18)
[2017-05-29] MEDS: CITALOPRAM HYDROBROMIDE 20 MG TAB PO SCH (10:18)
[2017-05-29] MEDS: MEGESTROL ACETATE SUSP 400 MG/10 ML CUP PO SCH (10:19)
[2017-05-29] MEDS: NYSTAT/DIPHENHY/LIDO MOUTHWASH (Adult) 120ML SWISH-SWAL SCH ×4 (10:28→20:49)
--- NOTE | 2017-05-29 11:02 | PD.ONC.PN ---
Subjective Subjective Remarks Afebrile overnight. Patient says knee feels the same. He says he feels fine. Slept well last night. No complaints. Objective Data Date Time Temp Pulse Resp B/P (MAP) Pulse Ox O2 Delivery O2 Flow Rate FiO2 05/29/17 10:28 97.1 96 16 98/62 (74) 97 05/29/17 08:00 96.3 69 18 100/61 (74) 96 05/29/17 07:35 71 05/29/17 04:00 76 05/29/17 04:00 96.8 95 17 109/68 (82) 97 05/29/17 00:00 96.4 79 18 120/69 (86) 99 05/29/17 00:00 81 05/28/17 20:50 78 05/28/17 20:00 97.4 77 18 116/66 (83) 98 05/28/17 16:14 74 05/28/17 16:00 96.4 76 18 110/67 (81) 98 05/28/17 13:53 16 05/28/17 12:09 67 05/28/17 12:00 96.1 64 18 105/64 (78) 98 05/29/17 05/29/17 05/29/17 07:00 15:00 23:00 Intake Total 5153 ml Output Total 900 ml 450 ml Balance 4253 ml -450 ml Result Diagram: 05/29/17 0520 05/28/17 0520 Laboratory Results Laboratory Tests Test 05/28/17 13:50 05/29/17 05:20 Fibrinogen 749 mg/dL 714 mg/dL White Blood Count 0.2 TH/MM3 Red Blood Count 2.32 MIL/MM3 Hemoglobin 6.8 GM/DL Hematocrit 19.6 % Mean Corpuscular Volume 84.3 FL Mean Corpuscular Hemoglobin 29.4 PG Mean Corpuscular Hemoglobin Concent 34.9 % Red Cell Distribution Width 15.3 % Platelet Count 11 TH/MM3 Mean Platelet Volume 6.8 FL CBC Comment AUTO DIFF Differential Total Cells Counted 10 Lymphocytes % 100 % Neutrophils # (Manual) 0.0 TH/MM3 Differential Comment FINAL DIFF MANUAL Platelet Estimate RARE Platelet Morphology Comment NORMAL Haptoglobin 330 MG/DL Prothrombin Time 12.8 SEC Prothromb Time International Ratio 1.2 RATIO Activated Partial Thromboplast Time 35.1 SEC Lactate Dehydrogenase 104 U/L Culture Results Microbiology Date/Time Source Procedure Growth Status 05/28/17 19:35 Blood Peripheral Aerobic Blood Culture Pending Received 05/28/17 19:35 Blood Peripheral Anaerobic Blood Culture Pending Received 05/28/17 19:01 Blood Peripheral Aerobic Blood Culture Pending Received 05/28/17 19:01 Blood Peripheral Anaerobic Blood Culture Pending Received 05/26/17 21:55 Blood Line Aerobic Blood Culture - Preliminary Gram Positive Cocci Resulted 05/26/17 21:55 Blood Line Anaerobic Blood Culture - Preliminary NO GROWTH IN 2 DAYS Resulted 05/26/17 20:51 Blood Line Aerobic Blood Culture - Preliminary Staphylococcus Epidermidis Resulted 05/26/17 20:51 Blood Line Anaerobic Blood Culture - Preliminary NO GROWTH IN 2 DAYS Resulted Administered Medications Medications (Trade) Dose Ordered Sig/Ivelisse Route PRN Reason Start Time Stop Time Status Last Admin Dose Admin Acetaminophen (Tylenol) 650 mg Q4H PRN PO fever>100.4 05/15/17 13:00 05/19/17 15:00 Citalopram Hydrobromide (CeleXA) 20 mg DAILY PO 05/16/17 09:00 05/29/17 10:18 Pantoprazole Sodium (Protonix) 20 mg DAILY PO 05/16/17 09:00 05/29/17 10:18 Ondansetron HCl (Zofran Inj) 4 mg Q6HR PRN IV PUSH nausea 05/15/17 14:00 05/16/17 10:30 Sodium Chloride (NS Flush) 5 ml UNSCH PRN IVF SEE PROTOCOL 05/15/17 15:00 05/26/17 21:47 Trimethoprim/ Sulfamethoxazole (Bactrim Ds 800-160 Mg) 1 tab MoWeFr@09 PO 05/16/17 09:00 Future Hold 05/25/17 08:37 Fluconazole (Diflucan) 100 mg DAILY PO 05/16/17 09:00 05/29/17 10:18 Acyclovir (Zovirax) 400 mg BID PO 05/16/17 09:00 05/29/17 10:18 Multi-Ingredient Mouthwash/Gargle (Magic Mouthwash Adult Liq) 5 ml QID SWISH-SWAL 05/16/17 13:00 05/29/17 10:28 Megestrol Acetate (Megace Liq) 300 mg DAILY PO 05/16/17 14:00 05/29/17 10:19 Alprazolam (Xanax) 1 mg HS PO 05/20/17 21:00 06/09/17 09:59 05/28/17 21:29 Alprazolam (Xanax) 0.5 mg Q8H PRN PO anxiety 05/20/17 10:15 05/25/17 08:36 Aminocaproic Acid (Amicar) 1,000 mg Q6HR PO 05/21/17 12:00 05/29/17 05:19 Magnesium Hydroxide (Milk Of [place] Liq) 30 ml DAILY PRN PO CONSTIPATION 05/21/17 11:30 05/21/17 16:54 Acetaminophen/ Hydrocodone Bitart ([place] 7.5-325 Mg) 1 tab Q4H PRN PO PAIN SCALE 4 TO 10 05/25/17 10:30 05/29/17 05:20 Vancomycin HCl 1500 mg/Sodium Chloride 515 ml @ 250 mls/hr Q12H IV 05/26/17 08:00 05/29/17 08:09 Objective Remarks GENERAL: Elderly male lying in bed in [place]. SKIN: Warm and dry. HEAD: Normocephalic. EYES: No injection or drainage. NECK: Supple, trachea midline. CARDIOVASCULAR: Regular rate and rhythm RESPIRATORY: Breath sounds equal bilaterally. No accessory muscle use. GASTROINTESTINAL: Abdomen soft, non-tender, nondistended. EXTREMITIES: No cyanosis. left knee persistent swelling. right forearm swelling improved. NEUROLOGICAL: awake and alert, normal speech. moving all extremities. Assessment/Plan Problem List: (1) AML (acute myeloblastic leukemia) ICD Codes: C92.00 - Acute myeloblastic leukemia, not having achieved remission Plan: 05/15/17: Admission. given Hydrea. [facility] performed Leukapheresis bringing WBC from >100K to 44K. 05/16/17: D1. SONIA-C + Maria Del Rosario. 1 unit pRBC 05/17/17: D2. no transfusion. tolerating chemo 05/18/17: D3. no transfusion. 05/19/17: D4. 1 unit platelets today. No evidence of tumor lysis. Pt finished idarubicin yesterday. Continue SONIA-C. 05/20/17 D5: 1 unit platelets, 2 units PRBC's today. Will add on xanax prn and 1mg xanax at HS scheduled. Continue chemo, continue to monitor blood counts. 05/21/17.D6: No transfusion, start lactulose for Bm, continue chemo 05/22/17:D7 05/23/17: D8: Pt to have final bag chemo hung tonight. Transfuse 1 unit irradiated platelets, 1 unit irradiated PRBC's today. 05/24/17: D9: We'll transfuse 1 unit irradiated packed red blood cells today for hemoglobin of 6.9 05/25/17: D10. transfuse 1 unit platelets. pain in left knee and right shoulder. swelling in left knee. 05/26/17: D11. 1 unit platelets, 1 unit pRBC. 05/27/17: D12. 1 unit pRBC. 05/28/17: D13. no transfusion 05/29/17: D14. 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 --He presented with hyperleukocytosis and acute blast crises. --on Allopurinol 100mg PO BID for prophylaxis (2) Pancytopenia ICD Codes: D61.818 - Other pancytopenia Status: Acute Plan: --transfuse him for hemoglobin of 7 or less. -- irradiated/CMV-negative blood products. --transfuse for platelet count of 10 or less. --Diflucan 100mg daily, Acyclovir 400mg PO BID (3) Coagulopathy ICD Codes: D68.9 - Coagulation defect, unspecified Status: Acute Plan: --Check daily fibrinogen levels. --check his coags and LDH and haptoglobin [id number]. (4) Swelling of left knee joint ICD Codes: M25.462 - Effusion, left knee Plan: --diff dx includes but is not limited to gout vs pseudogout, vs. hemarthrosis vs. septic joint vs. arthritis. --MRI of knee shows joint effusion, unable to tap until counts recover --on abx. ID following. (5) Sepsis ICD Codes: A41.9 - Sepsis, unspecified organism Plan: --ID following --+BC--GPC --on antibiotics Assessment 72y/o male with acute myeloid leukemia with blast crisis. 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 Plan 1. continue antibiotics 2. monitor CBC Attending Statement The exam, history, and the medical decision-making described in the above note were completed with the assistance of the mid-level provider. I reviewed and agree with the findings presented. I attest that I had a [id number] encounter with the patient on the same day, and personally performed and documented my assessment and findings in the medical record. remains pancytopenic s/p induction chemotherapy for AML I unit of prbc today left knee swollen and very tender--with effusion gram positive bacteremia on Vancomycin Unable to tap the knee at this time Obtain repat MRI of left knee in AM apply every 4 hours to the knee can not use NSAIDS since platelets are too low and would increase risk of bleeding If pain does not improve by tomorrow--will consider One time dose of IV Decadron 20 mg X 1 --difficult situation in this severely pancytopenic patient with septic arthritis encourage oral intake albumin low trimmer and reinforcer consult Back discomfort due to bed confinement ICY-HOT patches --apply to back d/w rn o/n events reviewed' Problem Qualifiers (1) AML (acute myeloblastic leukemia): Qualified Codes: C92.00 - Acute myeloblastic leukemia, not having achieved remission Oma Chavez May 29, 2017 11:02 Shar Ibanez MD May 30, 2017 00:13
--- NOTE | 2017-05-29 12:27 | HHI.PR ---
Subjective Subjective Remarks Resting in the bed Drowsy but responds to verbal stimuli Eating 80% of food, appetite good Pain management for right shoulder and left knee Review of Systems Constitutional Constitutional: Fatigue (easily), Weakness (generalized mild) Constitutional Remarks 10 point ROS reviewed any positives noted Hematologic/Lymphatic Heme/Lymph Remarks No rash noted Musculoskeletal MS: Weakness (minimal generalized) MS Remarks Left knee edema, sore to movement Right shoulder sore to movement, Right forearm mild edema, new thrombus right arm Neurologic Neurologic Remarks Fatigue tired sensation Psychiatric Psychiatric: Normal Mood, Anxiety (insomnia) Vitals/Results Intake & Output 05/29/17 05/29/17 05/30/17 15:00 23:00 07:00 Intake Total 10 ml Output Total 450 ml Balance -440 ml Blood Product IV Normal Saline Flush 10 ml Output Urine Total 450 ml Vital Signs Vital Signs Date Time Temp Pulse Resp B/P (MAP) Pulse Ox O2 Delivery O2 Flow Rate FiO2 05/29/17 10:28 97.1 96 16 98/62 (74) 97 05/29/17 08:00 96.3 69 18 100/61 (74) 96 05/29/17 07:35 71 05/29/17 04:00 76 05/29/17 04:00 96.8 95 17 109/68 (82) 97 05/29/17 00:00 96.4 79 18 120/69 (86) 99 05/29/17 00:00 81 05/28/17 20:50 78 05/28/17 20:00 97.4 77 18 116/66 (83) 98 05/28/17 16:14 74 05/28/17 16:00 96.4 76 18 110/67 (81) 98 05/28/17 13:53 16 CBC/BMP: 05/29/17 0520 05/28/17 0520 Lab Results Laboratory Tests Test 05/28/17 13:50 05/29/17 05:20 Fibrinogen 749 mg/dL 714 mg/dL White Blood Count 0.2 TH/MM3 Red Blood Count 2.32 MIL/MM3 Hemoglobin 6.8 GM/DL Hematocrit 19.6 % Mean Corpuscular Volume 84.3 FL Mean Corpuscular Hemoglobin 29.4 PG Mean Corpuscular Hemoglobin Concent 34.9 % Red Cell Distribution Width 15.3 % Platelet Count 11 TH/MM3 Mean Platelet Volume 6.8 FL CBC Comment AUTO DIFF Differential Total Cells Counted 10 Lymphocytes % 100 % Neutrophils # (Manual) 0.0 TH/MM3 Differential Comment FINAL DIFF MANUAL Platelet Estimate RARE Platelet Morphology Comment NORMAL Haptoglobin 330 MG/DL Prothrombin Time 12.8 SEC Prothromb Time International Ratio 1.2 RATIO Activated Partial Thromboplast Time 35.1 SEC Lactate Dehydrogenase 104 U/L Microbiology Microbiology 05/28/17 Aerobic Blood Culture - Preliminary, Resulted NO GROWTH IN 1 DAY 05/28/17 Anaerobic Blood Culture - Preliminary, Resulted NO GROWTH IN 1 DAY 05/28/17 Aerobic Blood Culture - Preliminary, Resulted NO GROWTH IN 1 DAY 05/28/17 Anaerobic Blood Culture - Preliminary, Resulted NO GROWTH IN 1 DAY Physical Exam General General Appearance: Well Developed, Well Nourished, Comfortable (with pain management), Pale (mild), Anxious (much more controlled) Eyes Eye Exam: Pupils Reactive Ears & Nose Ears & Nose Exam: Nasal Mucosa [place] (pale) Throat Throat Exam: Oral Mucosa [place] & Moist (pale) Neck Neck Exam: Neck Supple Pulmonary Resp Exam: Clear Bilaterally, No Distress Cardiology CV Exam: Regular Gastrointestinal/Abdomen GI Exam: Soft, Non-Tender, Bowel Sounds Present Hematologic/Lymphatic Heme Remarks No rash noted Musculoskeletal MS Remarks Left knee swollen, painful to movement and touch, warm Right shoulder sore to touch and movement Integumentary Skin Exam: Warm, Dry Extremeties Extremities Exam: No Edema Neurologic Neuro Exam: Awake, Oriented, Speech Clear Neuro Remarks Pain management effective PUD Prophylasis PUD Remarks PUD prophylaxis Assessment/Plan Assessment/Plan Vital signs reviewed BP 101/63 Labs reviewed, hemoglobin 6., Platelets 11, receiving transfusion today Acute myeloblastic leukemia with pancytopenia Appreciate input Dr. Ibanez, monitor for bone marrow recovery, chemotherapy completed 05-23, probable bone marrow biopsy in a week Medical management , Bactrim Levaquin Diflucan and acyclovir monitor coagulopathy any acute bleeding New thrombus right arm, cephalic vein, monitor labs, elevate right arm at all times, gradual decrease in right arm edema, chief soreness and pain noted in right shoulder Anxiety and depression Celexa and Xanax PRN , which appears to be effective, patient drowsy but awakens and is able to carry on simple conversation Left knee and right shoulder pain, probable effusion left knee, previous surgery but no acute issues in the past year or 2, edema seems to be improved today mild unable to have arthrocentesis due to low platelets., Continue antibiotics and appreciate ID assisting with follow-up Septicemia, unspecified, possible lt. knee, port?, MRI of both joints suggests leukemic infiltration. Appreciate ID input, antibiotic therapy maintenance No SCDs or anticoagulation recommended at this time due to thrombocytopenia GERD, Protonix PT and OT to increase mobility D/W oncologist PA, D/W pt D/W Dr. Kaur, seen on his behalf Marcie Summers May 29, 2017 12:27
[2017-05-29] MEDS: ALPRAZolam 1 MG TAB PO SCH (20:40)
[2017-05-30] VITALS (14 sets, daily range): BP systolic 96–118; BP diastolic 61–82; PULSE 74–92; RESP 18–20; TEMP 95.9–98; O2SAT 95–100
[2017-05-30] MEDS: AMINOCAPROIC ACID 500 MG TAB PO SCH ×3 (04:51→17:32)
[2017-05-30] MEDS: ACETAMINOPHEN/HYDROcodone 325 MG/7.5 MG TAB PO PRN ×4 (04:51→23:03)
[2017-05-30 06:14] LABS: HEMATOCRIT 23.2 % (39.0-51.0); MEAN CELL VOLUME 86.4 FL (80.0-100.0); MEAN CORPUSCULAR HEMOGLOBIN 29.5 PG (27.0-34.0); MEAN CORPUSCULAR HGB CONC 34.1 % (32.0-36.0); RED BLOOD COUNT 2.68 MIL/MM3 (4.50-5.90); RED CELL DISTRIBUTION WIDTH 15.3 % (11.6-17.2); WHITE BLOOD COUNT 0.2 TH/MM3 (4.0-11.0)
[2017-05-30 06:29] LABS: HEMO FLAGS AUTO DIFF
[2017-05-30 06:30] LABS: PLATELET COUNT 8 TH/MM3 (150-450)
[2017-05-30] MEDS ORDERED: PHARMACY ORDERED LAB ONE (07:45)
[2017-05-30 08:29] LABS: WBC DIFF SAMPLE 15
[2017-05-30 08:30] LABS: PLATELET ESTIMATE SMEAR RARE (NORMAL); PLATELET MORPHOLOGY NORMAL (NORMAL); ROULEAUX PRESENT (NORMAL); SCAN/DIFF FINAL DIFF MANUAL
[2017-05-30] MEDS: PANTOPRAZOLE SOD 20 MG DELAYED RELEASE TAB PO SCH (08:41)
[2017-05-30] MEDS: FLUCONAZOLE 100 MG TAB PO SCH (08:41)
[2017-05-30] MEDS: VANCOMYCIN INJ 1,500 MG in SODIUM CHLORID 0.9% 500 ML INJ 500 ML IV SCH ×2 (08:41→23:04)
[2017-05-30] MEDS: CITALOPRAM HYDROBROMIDE 20 MG TAB PO SCH (08:41)
[2017-05-30] MEDS: ACYCLOVIR 200 MG CAP PO SCH ×2 (08:41→23:02)
[2017-05-30] MEDS: MEGESTROL ACETATE SUSP 400 MG/10 ML CUP PO SCH (08:41)
[2017-05-30] MEDS: NYSTAT/DIPHENHY/LIDO MOUTHWASH (Adult) 120ML SWISH-SWAL SCH ×4 (08:44→22:55)
--- NOTE | 2017-05-30 10:55 | MB ---
cc: JOSE DAVID BARONE DATE OF CONSULTATION: 05/30/2017 REASON FOR CONSULTATION Left knee pain and effusion. CONSULTING PHYSICIAN Dr. Ibanez. HISTORY OF PRESENT ILLNESS Alvarado is a 72-year-old male. He has a history of acute myeloid leukemia. He is undergoing chemotherapy and treatment for his leukemia at this time. He has been developing left knee pain and swelling. He has also developed some right shoulder pain. He does have a history of some mild arthritis of the knee previously. The patient's pain and swelling have gotten worse. He is having some difficulty ambulating because of the knee pain. The pain is worse with ambulating or weightbearing. He has minimal pain at rest. He denies any recent injuries or traumatic events regarding his knee. PAST MEDICAL HISTORY ILLNESSES Acute myeloid leukemia. MEDICATIONS Medications include: 1. Citalopram. 2. Protonix. 3. Megace. 4. Bactrim. 5. Diflucan. 6. Acyclovir. 7. Cipro. ALLERGIES None. SOCIAL HISTORY The patient denies tobacco use. He drinks alcohol occasionally. He occasionally uses marijuana. FAMILY HISTORY Noncontributory. REVIEW OF SYSTEMS The patient denies headache, visual changes, neck pain, chest pain, shortness of breath, abdominal pain, nausea, vomiting or recent weight loss. He complains of left knee pain and swelling. He also has mild right shoulder pain. PHYSICAL EXAMINATION GENERAL: The patient is a pleasant 72-year-old male, in no acute distress. He is awake and alert. He is alert and oriented x3. VITAL SIGNS: Temperature 96.4, pulse 79, respirations 20, blood pressure 96/61, O2 sat 97% on room air. HEAD: The patient is normocephalic. Pupils are equal. NECK: Soft, nontender. Trachea is midline. ABDOMEN: Soft, nontender, nondistended. EXTREMITIES: Examination of right arm reveals minimal tenderness around his shoulder. He does have some mild discomfort with active forward flexion and abduction of his shoulder. He has no pain with elbow, wrist or finger motion. He has intact sensation in all fingers. He has good cap refill in all fingers. Radial pulses palpable. Examination of left arm reveals no pain with shoulder, elbow or wrist motion. He has intact sensation in radial, ulnar, median nerve distribution. Skein Washer strength is +5. Radial pulses palpable. Examination of right leg reveals no pain with hip, knee or ankle motion. Skin is intact. Dorsalis pedis pulses palpable. Sensation is intact. Examination of left leg reveals no pain with gentle hip or ankle motion. Skin is intact. Dorsalis pedis pulses palpable. Examination of his knee reveals a moderate knee effusion. He has mild discomfort with any knee range of motion. There is no significant warmth of the knee. Skin is intact. His knee is stable to varus and valgus stresses. There is no erythema noted. X-RAYS X-rays of the left knee were reviewed. X-rays reveal no evidence of acute fracture. He does have moderate osteoarthritis of the knee. IMPRESSION 1. Acute myeloid leukemia. 2. 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 3. Mild right shoulder pain. 4. Left knee pain and swelling. PLAN Treatment options were discussed with the patient. At this point he does have some pain and swelling of his knee. This may be a flare-up of his osteoarthritis. Given his immunosuppressed state there would be some concern for possible septic arthritis of his knee. I discussed his case and care with Dr. Ibanez. At this point Dr. Ibanez does not feel that it would be safe to perform a knee aspirate because the patient is so extremely immunosuppressed. Creating a puncture site around the knee may be introduction of infection into the knee joint. At this point I feel that it is relatively unlikely that the patient has a septic knee. Clinically his knee does not appear to be grossly infected. If the patient does have an infected knee, I would expect that the infection would worsen relatively rapidly given his immunocompromised state. We will need to monitor his knee closely and if conditions worsen he may need aspiration and possible irrigation and debridement of his knee. All questions were answered. We will continue to follow his progress. A mid-level provider in my office, nurse practitioner or PA, may see this patient on a follow-up basis and continue to implement the objective of this plan including: Starting or adjusting medications, injections of muscle, tendon, bursa or joints, cast application, orthotic or brace application, physical therapy, further radiographic studies including x-ray, MRI, CT, ultrasounds or bone scan, vascular studies, neurologic studies, or other specialist consultations, and proceeding with surgical management as appropriate. MD EFREN Eaton/RENAE /10:25 AM /10:35 AM
--- NOTE | 2017-05-30 11:28 | ECHRPT ---
Indication: STREP EPI BACTEREMIA CONCLUSIONS Normal left ventricular size. Wall thickness is normal. The left ventricular systolic function is low normal with an estimated ejection fraction in the rang e of 50- 55%. Doppler parameters are consistent with impaired left ventricular relaxtion (grade 1 diastolic dysfun ction). No atrial level shunt is demonstrated by color flow Doppler interrogation. No mitral valve regurgitation. No tricuspid regurgitation. Normal estimated pulmonary pressures. The inferior vena cava was not well visualized. BP: 109 / 68 HR: Rhythm: Sinus MEASUREMENTS (Male / Female) Normal Values Technical Quality:Fair 2D ECHO LV Diastolic Diameter PLAX 5.5 cm 4.2 - 5.9 / 3.9 - 5.3 cm LV Systolic Diameter PLAX 4.2 cm IVS Diastolic Thickness 1.1 cm 0.6 - 1.0 / 0.6 - 0.9 cm LVPW Diastolic Thickness 1.1 cm 0.6 - 1.0 / 0.6 - 0.9 cm LV Relative Wall Thickness 0.4 LVOT Diameter 2.2 cm Aortic Root Diameter 3.8 cm LA Systolic Diameter LX 3.2 cm 3.0 - 4.0 / 2.7 - 3.8 cm M-MODE AV Cusp Separation MM 2.5 cm DOPPLER AV Peak Velocity 160.0 cm/s AV Peak Gradient 10.2 mmHg AV Mean Gradient 6.0 mmHg AV Velocity Time Integral 26.7 cm LVOT Peak Velocity 111.0 cm/s LVOT Peak Gradient 4.9 mmHg LVOT Velocity Time Integral 16.2 cm AV Area Cont Eq vti 2.3 cm AV Area Cont Eq pk 2.6 cm Mitral E Point Velocity 60.2 cm/s Mitral A Point Velocity 74.5 cm/s Mitral E to A Ratio 0.8 LV E' Lateral Velocity 8.0 cm/s Mitral E to LV E' Lateral Ratio 7.5 LV E' Septal Velocity 6.2 cm/s Mitral E to LV E' Septal Ratio 9.6 PV Peak Velocity 99.3 cm/s PV Peak Gradient 3.9 mmHg FINDINGS LEFT VENTRICLE Normal left ventricular size. Wall thickness is normal. The left ventricular systolic function is low normal with an estimated ejection fraction in the rang e of 50- 55%. Doppler parameters are consistent with impaired left ventricular relaxtion (grade 1 diastolic dysfun ction). RIGHT VENTRICLE Normal right ventricular size and systolic function. LEFT ATRIUM The left atrial size is normal. RIGHT ATRIUM The right atrial size is normal. ATRIAL SEPTUM No atrial level shunt is demonstrated by color flow Doppler interrogation. AORTA The aortic root and proximal ascending aorta are normal in size on limited imaging. MITRAL VALVE Structurally normal mitral valve. No mitral valve regurgitation. AORTIC VALVE Trileaflet aortic valve. No aortic valve stenosis or regurgitation. TRICUSPID VALVE Structurally normal tricuspid valve. No tricuspid regurgitation. Normal estimated pulmonary pressures. PULMONARY VALVE No pulmonary valve regurgitation or stenosis. VESSELS The inferior vena cava was not well visualized. PERICARDIUM No pericardial effusion. Curt Coronel MD (Electronically Signed) Final Date:30 May 2017 11:27
--- NOTE | 2017-05-30 11:34 | PD.ONC.PN ---
Subjective Subjective Remarks Afebrile overnight. Patient resting in bed in nad. He says his knee does not hurt unless he moves it and reports when he moves it, "it hurts less than it did before." Still has been able to bear weight on it. Objective Data Date Time Temp Pulse Resp B/P (MAP) Pulse Ox O2 Delivery O2 Flow Rate FiO2 05/30/17 07:50 96.4 79 20 96/61 (73) 97 05/30/17 04:05 96.9 83 18 112/63 (79) 95 05/30/17 04:00 82 05/30/17 00:05 97.7 79 18 117/63 (81) 99 05/30/17 00:00 80 05/29/17 20:00 96.7 81 19 111/69 (83) 97 05/29/17 20:00 80 05/29/17 19:11 16 05/29/17 16:00 96.6 68 18 115/67 (83) 99 05/29/17 12:50 69 05/29/17 12:23 97.3 87 16 101/67 97 05/30/17 05/30/17 05/30/17 07:00 15:00 23:00 Intake Total 828 ml Output Total 875 ml Balance -47 ml Result Diagram: 05/30/17 0500 05/30/17 0500 Laboratory Results Laboratory Tests Test 05/30/17 05:00 05/30/17 07:20 White Blood Count 0.2 TH/MM3 Red Blood Count 2.68 MIL/MM3 Hemoglobin 7.9 GM/DL Hematocrit 23.2 % Mean Corpuscular Volume 86.4 FL Mean Corpuscular Hemoglobin 29.5 PG Mean Corpuscular Hemoglobin Concent 34.1 % Red Cell Distribution Width 15.3 % Platelet Count 8 TH/MM3 Mean Platelet Volume 6.8 FL CBC Comment AUTO DIFF Differential Total Cells Counted 15 Lymphocytes % 100 % Neutrophils # (Manual) 0.0 TH/MM3 Differential Comment FINAL DIFF MANUAL Platelet Estimate RARE Platelet Morphology Comment NORMAL [place] PRESENT Fibrinogen 783 mg/dL Creatinine 0.72 MG/DL Estimat Glomerular Filtration Rate 108 ML/MIN Vancomycin Level Trough 15.3 MCG/ML Culture Results Microbiology Date/Time Source Procedure Growth Status 05/28/17 19:35 Blood Peripheral Aerobic Blood Culture - Preliminary NO GROWTH IN 2 DAYS Resulted 05/28/17 19:35 Blood Peripheral Anaerobic Blood Culture - Preliminary NO GROWTH IN 2 DAYS Resulted 05/28/17 19:01 Blood Peripheral Aerobic Blood Culture - Preliminary NO GROWTH IN 2 DAYS Resulted 05/28/17 19:01 Blood Peripheral Anaerobic Blood Culture - Preliminary NO GROWTH IN 2 DAYS Resulted Administered Medications Medications (Trade) Dose Ordered Sig/Ivelisse Route PRN Reason Start Time Stop Time Status Last Admin Dose Admin Acetaminophen (Tylenol) 650 mg Q4H PRN PO fever>100.4 05/15/17 13:00 05/19/17 15:00 Citalopram Hydrobromide (CeleXA) 20 mg DAILY PO 05/16/17 09:00 05/30/17 08:41 Pantoprazole Sodium (Protonix) 20 mg DAILY PO 05/16/17 09:00 05/30/17 08:41 Ondansetron HCl (Zofran Inj) 4 mg Q6HR PRN IV PUSH nausea 05/15/17 14:00 05/16/17 10:30 Sodium Chloride (NS Flush) 5 ml UNSCH PRN IVF SEE PROTOCOL 05/15/17 15:00 05/26/17 21:47 Trimethoprim/ Sulfamethoxazole (Bactrim Ds 800-160 Mg) 1 tab MoWeFr@09 PO 05/16/17 09:00 Future Hold 05/25/17 08:37 Fluconazole (Diflucan) 100 mg DAILY PO 05/16/17 09:00 05/30/17 08:41 Acyclovir (Zovirax) 400 mg BID PO 05/16/17 09:00 05/30/17 08:41 Multi-Ingredient Mouthwash/Gargle (Magic Mouthwash Adult Liq) 5 ml QID SWISH-SWAL 05/16/17 13:00 05/30/17 08:44 Megestrol Acetate (Megace Liq) 300 mg DAILY PO 05/16/17 14:00 05/30/17 08:41 Alprazolam (Xanax) 1 mg HS PO 05/20/17 21:00 06/09/17 09:59 05/29/17 20:40 Alprazolam (Xanax) 0.5 mg Q8H PRN PO anxiety 05/20/17 10:15 05/25/17 08:36 Aminocaproic Acid (Amicar) 1,000 mg Q6HR PO 05/21/17 12:00 05/30/17 04:51 Magnesium Hydroxide (Milk Of Magncara Liq) 30 ml DAILY PRN PO CONSTIPATION 05/21/17 11:30 05/21/17 16:54 Acetaminophen/ Hydrocodone Bitart (Martin 7.5-325 Mg) 1 tab Q4H PRN PO PAIN SCALE 4 TO 10 05/25/17 10:30 05/30/17 04:51 Vancomycin HCl 1500 mg/Sodium Chloride 515 ml @ 250 mls/hr Q12H IV 05/26/17 08:00 05/30/17 08:41 Objective Remarks GENERAL: Elderly male supine in bed in nad. SKIN: Warm and dry. HEAD: Normocephalic. EYES: No injection or drainage. NECK: Supple, trachea midline. CARDIOVASCULAR: Regular rate and rhythm RESPIRATORY: Breath sounds equal bilaterally. No accessory muscle use. GASTROINTESTINAL: Abdomen soft, non-tender, nondistended. EXTREMITIES: No cyanosis. left knee swelling unchanged. no erythema. Right forearm swelling improving. NEUROLOGICAL: aox3. normal speech. no obvious focal deficit Assessment/Plan Problem List: (1) AML (acute myeloblastic leukemia) ICD Codes: C92.00 - Acute myeloblastic leukemia, not having achieved remission Plan: 05/15/17: Admission. given Hydrea. [facility] performed Leukapheresis bringing WBC from >100K to 44K. 05/16/17: D1. SONIA-C + [facility] [place] [facility]. 1 unit pRBC 05/17/17: D2. no transfusion. tolerating chemo 05/18/17: D3. no transfusion. 05/19/17: D4. 1 unit platelets today. No evidence of tumor lysis. Pt finished idarubicin yesterday. Continue SONIA-C. 05/20/17 D5: 1 unit platelets, 2 units PRBC's today. Will add on xanax prn and 1mg xanax at HS scheduled. Continue chemo, continue to monitor blood counts. 05/21/17.D6: No transfusion, start lactulose for Bm, continue chemo 05/22/17:D7 05/23/17: D8: Pt to have final bag chemo hung tonight. Transfuse 1 unit irradiated platelets, 1 unit irradiated PRBC's today. 05/24/17: D9: We'll transfuse 1 unit irradiated packed red blood cells today for hemoglobin of 6.9 05/25/17: D10. transfuse 1 unit platelets. pain in left knee and right shoulder. swelling in left knee. 05/26/17: D11. 1 unit platelets, 1 unit pRBC. 05/27/17: D12. 1 unit pRBC. 05/28/17: D13. no transfusion 05/29/17: D14. 1 unit pRBC 05/30/17: D15. 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 --He presented with hyperleukocytosis and acute blast crises. --on Allopurinol 100mg PO BID for prophylaxis (2) Pancytopenia ICD Codes: D61.818 - Other pancytopenia Status: Acute Plan: --transfuse him for hemoglobin of 7 or less. -- irradiated/CMV-negative blood products. --transfuse for platelet count of 10 or less. --Diflucan 100mg daily, Acyclovir 400mg PO BID (3) Coagulopathy ICD Codes: D68.9 - Coagulation defect, unspecified Status: Acute Plan: --Check daily fibrinogen levels. --check his coags and LDH and haptoglobin [id number]. (4) Swelling of left knee joint ICD Codes: M25.462 - Effusion, left knee Plan: --diff dx includes but is not limited to gout vs pseudogout, vs. hemarthrosis vs. septic joint vs. arthritis. --MRI of knee shows joint effusion, unable to tap until counts recover --on abx. ID following. --ortho saw patient on 05/30 and recommends medical management, close observation and intervention if symptoms worsen (5) Sepsis ICD Codes: A41.9 - Sepsis, unspecified organism Plan: --ID following --BC on 05/28 showed no growth --+BC--GPC --on antibiotics Assessment 72y/o male with acute myeloid leukemia with blast crisis. 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 Plan 1. continue antibiotics 2. give 1 unit platelets 3. obtain HLA typing for HLA matched platelets Attending Statement The exam, history, and the medical decision-making described in the above note were completed with the assistance of the mid-level provider. I reviewed and agree with the findings presented. I attest that I had a [id number] encounter with the patient on the same day, and personally performed and documented my assessment and findings in the medical record. remains pancytopenic severely neutropenic platelet transfusion today subjectively less painful knee case discussed with Orthopedics clinically monitor knee for now if symptoms worsen--will ask orthopedics to aspirate knee effusion under sterile conditions in OR appreciate ortho recs Staph epidermis bacteremia--on Vancomycin- repeat blood cultures---->no growth d/w patient d/w rn o/n events reviewed Problem Qualifiers (1) AML (acute myeloblastic leukemia): Qualified Codes: C92.00 - Acute myeloblastic leukemia, not having achieved remission Oma Chavez May 30, 2017 11:34 Shar Ibanez MD May 30, 2017 22:49
[2017-05-30 12:32] LABS: ANION GAP 7 MEQ/L (5-15); AST (GOT) 11 U/L (15-37); BICARBONATE 26.1 MEQ/L (21.0-32.0); BLOOD UREA NITROGEN 13 MG/DL (7-18); CHLORIDE 104 MEQ/L (98-107); GLOMERULAR FILTRATION RATE 103 ML/MIN (>89); SODIUM (NA) 137 MEQ/L (136-145)
[2017-05-30 12:38] LABS: ALKALINE PHOSPHATASE 67 U/L (45-117); ALT (GPT) 30 U/L (12-78); TOTAL BILIRUBIN ADULT 1.7 MG/DL (0.2-1.0)
--- NOTE | 2017-05-30 13:42 | HHI.PR ---
Subjective Remarks Left knee still painful, however controlled with by mouth narcotics Has been working with physical and occupational therapy Able to lift right arm a little bit better Right arm swelling improved No chest pain No shortness of breath Appetite is fair No diarrhea Objective Objective Results - Vital Signs Date Time Temp Pulse Resp B/P (MAP) Pulse Ox O2 Delivery O2 Flow Rate FiO2 05/30/17 07:50 96.4 79 20 96/61 (73) 97 05/30/17 04:05 96.9 83 18 112/63 (79) 95 05/30/17 04:00 82 05/30/17 00:05 97.7 79 18 117/63 (81) 99 05/30/17 00:00 80 05/29/17 20:00 96.7 81 19 111/69 (83) 97 05/29/17 20:00 80 05/29/17 19:11 16 05/29/17 16:00 96.6 68 18 115/67 (83) 99 I/O 05/29/17 05/29/17 05/29/17 05/30/17 05/30/17 05/30/17 07:00 15:00 23:00 07:00 15:00 23:00 Intake Total 5153 ml 420 ml 828 ml Output Total 900 ml 450 ml 1175 ml 875 ml Balance 4253 ml -30 ml -1175 ml -47 ml Intake Oral 828 ml IV Total 5153 ml Packed Cells 400 ml Blood Product IV Normal Saline Flush 20 ml Output Urine Total 900 ml 450 ml 1175 ml 875 ml Result Diagram: 05/30/17 0500 05/30/17 0500 Imaging Last Impressions Chest X-Ray 05/16/17 0700 Signed Impressions: Service Date/Time: Tuesday, May 16, 2017 07:41 - CONCLUSION: The lungs are clear. No evidence of pneumothorax. Ethan Sabillon MD [facility] 05/15/17 0000 Signed Impressions: Service Date/Time: Monday, May 15, 2017 14:57 - CONCLUSION: Normal study. Ejection fraction 72%% Man Burden MD Catheter Placement X-Ray 05/15/17 0000 Signed Impressions: Service Date/Time: Monday, May 15, 2017 17:46 - CONCLUSION: Uncomplicated line placement as above. Man Burden MD Other Results Laboratory Tests Test 05/30/17 05:00 05/30/17 07:20 White Blood Count 0.2 Red Blood Count 2.68 Hemoglobin 7.9 Hematocrit 23.2 Mean Corpuscular Volume 86.4 Mean Corpuscular Hemoglobin 29.5 Mean Corpuscular Hemoglobin Concent 34.1 Red Cell Distribution Width 15.3 Platelet Count 8 Mean Platelet Volume 6.8 CBC Comment AUTO DIFF Differential Total Cells Counted 15 Lymphocytes % 100 Neutrophils # (Manual) 0.0 Differential Comment FINAL DIFF MANUAL Platelet Estimate RARE Platelet Morphology Comment NORMAL [place] PRESENT Fibrinogen 783 Blood Urea Nitrogen 13 Creatinine 0.75 Random Glucose 100 Total Protein 5.4 Albumin 1.8 Calcium Level 8.3 Alkaline Phosphatase 67 Aspartate Amino Transf (AST/SGOT) 11 Alanine Aminotransferase (ALT/SGPT) 30 Total Bilirubin 1.7 Sodium Level 137 Potassium Level 4.0 Chloride Level 104 Carbon Dioxide Level 26.1 Anion Gap 7 Estimat Glomerular Filtration Rate 103 Vancomycin Level Trough 15.3 Date/Time Source Procedure Growth Status 05/28/17 19:35 Blood Peripheral Aerobic Blood Culture - Preliminary NO GROWTH IN 2 DAYS Resulted 05/28/17 19:35 Blood Peripheral Anaerobic Blood Culture - Preliminary NO GROWTH IN 2 DAYS Resulted ROS General: Fatigue HEENT: No: Sore Throat, Dysphagia, Other Cardiac: No: Chest Pain, Edema, Palpitations, Other Pulmonary: No: Cough, SOB, Wheezing, Other GI: No: Abdominal Pain, BM, Diarrhea, N/V, 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 SKIN: Petechial rash noted to bilateral pretibial areas. Skin pale and cool to touch HEAD: Atraumatic. Normocephalic. No temporal or scalp tenderness. EYES: Pupils equal round and reactive. Extraocular motions intact. No scleral icterus. No injection or drainage. ENT: Nose without bleeding, purulent drainage or septal hematoma. Throat without erythema, tonsillar hypertrophy or exudate. Uvula midline. Airway patent. NECK: Trachea midline. No JVD or lymphadenopathy. Supple, nontender, no meningeal signs. CARDIOVASCULAR: Regular rate and rhythm without murmurs, gallops, or rubs. RESPIRATORY: Clear to auscultation. Breath sounds equal bilaterally. No wheezes , rales, or rhonchi. Port-A-Cath noted to left chest wall area. GASTROINTESTINAL: Abdomen soft, non-tender, nondistended. No hepato-splenomegaly , or palpable masses. No guarding. MUSCULOSKELETAL: Left knee is less swollen. Painful with flexion. Right shoulder tender, no erythema noted. No deformity. Able to bring up right arm up to eye level,very painful with abduction. NEUROLOGICAL: Awake, alert oriented 2, forgetful. No focal deficit. 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 Admitted for chemotherapy induction. Acute myeloblastic leukemia Pancytopenia -Dr. Ibanez managing -Continue with Bactrim Levaquin Diflucan and acyclovir -completed chemo 05/23 -Continue with blood product replacement is needed, will receive platelets today -Monitor for bone marrow recovery Coagulopathy -Monitor for bleeding - fibrinogen levels per oncology, elevated. GERD [place] esophagus -Continue Protonix 20 mg by mouth daily Anxiety and depression -Continue with Celexa 20 mg by mouth daily -continue Xanax PRN Familial tremor, stable -continue with medical management Left knee and right shoulder pain, ? septic joint, effusion -MRI left knee noted, joint effusion, unable to have arthrocentesis due to low platelets. -ID has been consulted, input appreciated -Continue with empiric antibiotic -Continue with Allopurinol 100 mg po bid -Continue [place] PRN -Appreciate orthopedic input, doesn't believe septic joint. At this time patient is high risk for aspiration. Recommends to continue with medical management. Positive blood cultures, ? Bacteremia, left knee effusion. -Appreciate ID input -Continue with empiric antibiotics -Blood and line cultures positive for Staph epi -blood cultures repeated, so far negative. Continue to follow -May require removal of port if bacteremia persists per ID recommendations. Right arm swelling, positive for DVT cephalic vein -Elevate arm as needed -Warm compresses -no anticoagulation recommended at this time due to low platelets. No SCDs or anticoagulation recommended at this time due to thrombocytopenia Continue Protonix for GI prophylaxis PT and OT to increase mobility Monitor CBC Condition guarded D/W RN D/W pt D/W Dr. Kaur Patient was seen by myself and Dr. Kaur, this note is written on his behalf Problem Qualifiers (1) AML (acute myeloblastic leukemia): Qualified Codes: C92.00 - Acute myeloblastic leukemia, not having achieved remission Viola Sanon May 30, 2017 13:42
[2017-05-30] MEDS ORDERED: diphenhydrAMINE HCL 25 MG CAP PO ONE (17:30)
[2017-05-30] MEDS: ALPRAZolam 1 MG TAB PO SCH (23:02)
[2017-05-31] VITALS (9 sets, daily range): BP systolic 112–140; BP diastolic 70–79; PULSE 66–90; RESP 16–20; TEMP 96.2–97.2; O2SAT 95–100
[2017-05-31 06:48] LABS: APTT (PATIENT) 33.9 SEC (24.3-30.1); INTERNATIONAL NORMALIZED RATIO 1.2 RATIO; PROTHROMBIN TIME - PATIENT 13.5 SEC (9.8-11.6)
[2017-05-31 06:55] LABS: HEMATOCRIT 21.6 % (39.0-51.0); MEAN CELL VOLUME 87.1 FL (80.0-100.0); MEAN CORPUSCULAR HEMOGLOBIN 29.2 PG (27.0-34.0); MEAN CORPUSCULAR HGB CONC 33.6 % (32.0-36.0); RED BLOOD COUNT 2.49 MIL/MM3 (4.50-5.90); RED CELL DISTRIBUTION WIDTH 14.9 % (11.6-17.2); WHITE BLOOD COUNT 0.2 TH/MM3 (4.0-11.0)
[2017-05-31 07:03] LABS: HEMO FLAGS AUTO DIFF
[2017-05-31 07:05] LABS: ANION GAP 8 MEQ/L (5-15); AST (GOT) 10 U/L (15-37); BICARBONATE 26.8 MEQ/L (21.0-32.0); BLOOD UREA NITROGEN 12 MG/DL (7-18); CHLORIDE 104 MEQ/L (98-107); GLOMERULAR FILTRATION RATE 110 ML/MIN (>89); POTASSIUM 3.9 MEQ/L (3.5-5.1); SODIUM (NA) 139 MEQ/L (136-145)
[2017-05-31 07:06] LABS: PLATELET COUNT 19 TH/MM3 (150-450)
[2017-05-31 07:09] LABS: ALKALINE PHOSPHATASE 70 U/L (45-117); ALT (GPT) 32 U/L (12-78); LDH SERUM 98 U/L (87-241); TOTAL BILIRUBIN ADULT 1.6 MG/DL (0.2-1.0)
[2017-05-31 08:42] LABS: PLASMA CELLS 5 % (0-0); WBC DIFF SAMPLE 20
[2017-05-31 08:57] LABS: PLATELET ESTIMATE SMEAR RARE (NORMAL); PLATELET MORPHOLOGY NORMAL (NORMAL); SCAN/DIFF FINAL DIFF MANUAL
[2017-05-31] MEDS: NYSTAT/DIPHENHY/LIDO MOUTHWASH (Adult) 120ML SWISH-SWAL SCH ×4 (09:00→21:00)
[2017-05-31] MEDS: FLUCONAZOLE 100 MG TAB PO SCH (09:26)
[2017-05-31] MEDS: CITALOPRAM HYDROBROMIDE 20 MG TAB PO SCH (09:26)
[2017-05-31] MEDS: ACYCLOVIR 200 MG CAP PO SCH ×2 (09:26→22:32)
[2017-05-31] MEDS: MEGESTROL ACETATE SUSP 400 MG/10 ML CUP PO SCH (09:26)
[2017-05-31] MEDS: PANTOPRAZOLE SOD 20 MG DELAYED RELEASE TAB PO SCH (09:26)
[2017-05-31] MEDS: VANCOMYCIN INJ 1,500 MG in SODIUM CHLORID 0.9% 500 ML INJ 500 ML IV SCH (09:44)
[2017-05-31] MEDS: ALPRAZolam 0.5 MG TAB PO PRN (09:46)
[2017-05-31] MEDS: ACETAMINOPHEN/HYDROcodone 325 MG/7.5 MG TAB PO PRN (09:46)
[2017-05-31] MEDS ORDERED: SODIUM CHLOR 0.9% 250 ML INJ 250 ML IV ONE (11:00)
--- NOTE | 2017-05-31 11:38 | PD.ONC.PN ---
Subjective Subjective Remarks Afebrile overnight. Patient continuing to have pain in knee. He states the pain is better, but will not bear any weight on the knee. Remains bedridden. Objective Data Date Time Temp Pulse Resp B/P (MAP) Pulse Ox O2 Delivery O2 Flow Rate FiO2 05/31/17 07:50 97.0 88 20 137/74 (95) 95 05/31/17 05:44 96.3 66 16 140/71 (94) 100 05/31/17 04:00 78 05/31/17 00:50 96.2 89 18 112/79 (90) 99 05/31/17 00:00 80 05/30/17 20:50 95.9 90 18 118/82 (94) 100 05/30/17 20:00 84 05/30/17 18:50 98.0 75 18 117/72 100 05/30/17 18:15 96.0 74 18 114/66 100 05/30/17 18:02 96.1 76 18 113/64 98 05/30/17 15:50 96.3 79 20 109/70 (83) 95 05/30/17 12:00 79 05/30/17 11:50 96.5 75 20 105/66 (79) 96 05/31/17 05/31/17 05/31/17 07:00 15:00 23:00 Output Total 400 ml Balance -400 ml Result Diagram: 05/31/17 0530 05/31/17 0530 Laboratory Results Laboratory Tests Test 05/31/17 05:30 White Blood Count 0.2 TH/MM3 Red Blood Count 2.49 MIL/MM3 Hemoglobin 7.3 GM/DL Hematocrit 21.6 % Mean Corpuscular Volume 87.1 FL Mean Corpuscular Hemoglobin 29.2 PG Mean Corpuscular Hemoglobin Concent 33.6 % Red Cell Distribution Width 14.9 % Platelet Count 19 TH/MM3 Mean Platelet Volume 8.0 FL CBC Comment AUTO DIFF Differential Total Cells Counted 20 Lymphocytes % 85 % Monocytes % 10 % Neutrophils # (Manual) 0.0 TH/MM3 Differential Comment FINAL DIFF MANUAL Plasma Cells 5 % Platelet Estimate RARE Platelet Morphology Comment NORMAL Red Cell Morphology Comment NORMAL Haptoglobin 359 MG/DL Prothrombin Time 13.5 SEC Prothromb Time International Ratio 1.2 RATIO Activated Partial Thromboplast Time 33.9 SEC Fibrinogen 765 mg/dL Blood Urea Nitrogen 12 MG/DL Creatinine 0.71 MG/DL Random Glucose 93 MG/DL Total Protein 5.6 GM/DL Albumin 1.7 GM/DL Calcium Level 8.4 MG/DL Alkaline Phosphatase 70 U/L Aspartate Amino Transf (AST/SGOT) 10 U/L Alanine Aminotransferase (ALT/SGPT) 32 U/L Lactate Dehydrogenase 98 U/L Total Bilirubin 1.6 MG/DL Sodium Level 139 MEQ/L Potassium Level 3.9 MEQ/L Chloride Level 104 MEQ/L Carbon Dioxide Level 26.8 MEQ/L Anion Gap 8 MEQ/L Estimat Glomerular Filtration Rate 110 ML/MIN Culture Results Microbiology Date/Time Source Procedure Growth Status 05/28/17 19:35 Blood Peripheral Aerobic Blood Culture - Preliminary NO GROWTH IN 3 DAYS Resulted 05/28/17 19:35 Blood Peripheral Anaerobic Blood Culture - Preliminary NO GROWTH IN 3 DAYS Resulted 05/28/17 19:01 Blood Peripheral Aerobic Blood Culture - Preliminary NO GROWTH IN 3 DAYS Resulted 05/28/17 19:01 Blood Peripheral Anaerobic Blood Culture - Preliminary NO GROWTH IN 3 DAYS Resulted Administered Medications Medications (Trade) Dose Ordered Sig/Ivelisse Route PRN Reason Start Time Stop Time Status Last Admin Dose Admin Acetaminophen (Tylenol) 650 mg Q4H PRN PO fever>100.4 05/15/17 13:00 05/19/17 15:00 Citalopram Hydrobromide (CeleXA) 20 mg DAILY PO 05/16/17 09:00 05/31/17 09:26 Pantoprazole Sodium (Protonix) 20 mg DAILY PO 05/16/17 09:00 05/31/17 09:26 Ondansetron HCl (Zofran Inj) 4 mg Q6HR PRN IV PUSH nausea 05/15/17 14:00 05/16/17 10:30 Sodium Chloride (NS Flush) 5 ml UNSCH PRN IVF SEE PROTOCOL 05/15/17 15:00 05/26/17 21:47 Trimethoprim/ Sulfamethoxazole (Bactrim Ds 800-160 Mg) 1 tab MoWeFr@09 PO 05/16/17 09:00 Future Hold 05/25/17 08:37 Fluconazole (Diflucan) 100 mg DAILY PO 05/16/17 09:00 05/31/17 09:26 Acyclovir (Zovirax) 400 mg BID PO 05/16/17 09:00 05/31/17 09:26 Multi-Ingredient Mouthwash/Gargle (Magic Mouthwash Adult Liq) 5 ml QID SWISH-SWAL 05/16/17 13:00 05/31/17 09:00 Megestrol Acetate (Megace Liq) 300 mg DAILY PO 05/16/17 14:00 05/31/17 09:26 Alprazolam (Xanax) 1 mg HS PO 05/20/17 21:00 06/09/17 09:59 05/30/17 23:02 Alprazolam (Xanax) 0.5 mg Q8H PRN PO anxiety 05/20/17 10:15 05/31/17 09:46 Magnesium Hydroxide (Milk Of Magnesia Liq) 30 ml DAILY PRN PO CONSTIPATION 05/21/17 11:30 05/21/17 16:54 Acetaminophen/ Hydrocodone Bitart ([place] 7.5-325 Mg) 1 tab Q4H PRN PO PAIN SCALE 4 TO 10 05/25/17 10:30 05/31/17 09:46 Vancomycin HCl 1500 mg/Sodium Chloride 515 ml @ 250 mls/hr Q12H IV 05/26/17 08:00 05/31/17 09:44 Objective Remarks GENERAL: Elderly male sleeping on approach but easily awakened SKIN: Warm and dry. HEAD: Normocephalic. EYES: No injection or drainage. NECK: Supple, trachea midline. CARDIOVASCULAR: Regular rate and rhythm RESPIRATORY: Breath sounds equal bilaterally. No accessory muscle use. GASTROINTESTINAL: Abdomen soft, non-tender, nondistended. EXTREMITIES: No cyanosis. left knee persistently swollen. right forearm with swelling. NEUROLOGICAL: awake and alert, normal speech. moving all extremities. Assessment/Plan Problem List: (1) AML (acute myeloblastic leukemia) ICD Codes: C92.00 - Acute myeloblastic leukemia, not having achieved remission Plan: 05/15/17: Admission. given Hydrea. [facility] performed Leukapheresis bringing WBC from >100K to 44K. 05/16/17: D1. SONIA-C + [place]. 1 unit pRBC 05/17/17: D2. no transfusion. tolerating chemo 05/18/17: D3. no transfusion. 05/19/17: D4. 1 unit platelets today. No evidence of tumor lysis. Pt finished idarubicin yesterday. Continue SONIA-C. 05/20/17 D5: 1 unit platelets, 2 units PRBC's today. Will add on xanax prn and 1mg xanax at HS scheduled. Continue chemo, continue to monitor blood counts. 05/21/17.D6: No transfusion, start lactulose for Bm, continue chemo 05/22/17:D7 05/23/17: D8: Pt to have final bag chemo hung tonight. Transfuse 1 unit irradiated platelets, 1 unit irradiated PRBC's today. 05/24/17: D9: We'll transfuse 1 unit irradiated packed red blood cells today for hemoglobin of 6.9 05/25/17: D10. transfuse 1 unit platelets. pain in left knee and right shoulder. swelling in left knee. 05/26/17: D11. 1 unit platelets, 1 unit pRBC. 05/27/17: D12. 1 unit pRBC. 05/28/17: D13. no transfusion 05/29/17: D14. 1 unit pRBC 05/30/17: D15. 1 unit platelets 05/31/17: D16. 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 --He presented with hyperleukocytosis and acute blast crises. --on Allopurinol 100mg PO BID for prophylaxis (2) Pancytopenia ICD Codes: D61.818 - Other pancytopenia Status: Acute Plan: --transfuse him for hemoglobin of 7 or less. -- irradiated/CMV-negative blood products. --transfuse for platelet count of 10 or less. --Diflucan 100mg daily, Acyclovir 400mg PO BID (3) Coagulopathy ICD Codes: D68.9 - Coagulation defect, unspecified Status: Acute Plan: --Check daily fibrinogen levels. --check his coags and LDH and haptoglobin [id number]. (4) Swelling of left knee joint ICD Codes: M25.462 - Effusion, left knee Plan: --diff dx includes but is not limited to gout vs pseudogout, vs. hemarthrosis vs. septic joint vs. arthritis. --MRI of knee shows joint effusion, unable to tap until counts recover --on abx. ID following. --ortho saw patient on 9/20 and recommends medical management, close observation and intervention if symptoms worsen (5) Sepsis ICD Codes: A41.9 - Sepsis, unspecified organism Plan: --ID following --BC on 05/28 showed no growth --+BC--GPC --on antibiotics Assessment 72y/o male with acute myeloid leukemia with blast crisis. 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 Plan 1. give 1 unit pRBC 2. continue antibiotics 3. monitor knee Attending Statement The exam, history, and the medical decision-making described in the above note were completed with the assistance of the mid-level provider. I reviewed and agree with the findings presented. I attest that I had a [id number] encounter with the patient on the same day, and personally performed and documented my assessment and findings in the medical record High risk AML s/p induction chemotherapy remains severely neutropenic Bone marrow biopsy in am. FISH/FLOW Cytometry and Cytogenetics Blood product support today Antibiotic coverage expanded on Vanco and Cefepime increasingly drowsy and lethargic. Repeat blood cultures skin breakdown in sacral area--wound care eval. specialty bed left knee swelling and pain slightly decreased card lacer jacquard consult d/w rn o/n events reviewed Problem Qualifiers (1) AML (acute myeloblastic leukemia): Qualified Codes: C92.00 - Acute myeloblastic leukemia, not having achieved remission Oma Chavez May 31, 2017 11:37 Shar Ibanez MD May 31, 2017 21:59
--- NOTE | 2017-05-31 15:40 | HHI.PR ---
Subjective Remarks disoriented, was anxious this morning doesn't want to get out of bed, right knee painful no cp no sob no fever Objective Objective Results - Vital Signs Date Time Temp Pulse Resp B/P (MAP) Pulse Ox O2 Delivery O2 Flow Rate FiO2 05/31/17 11:50 96.4 85 20 131/70 (90) 96 05/31/17 07:50 97.0 88 20 137/74 (95) 95 05/31/17 05:44 96.3 66 16 140/71 (94) 100 05/31/17 04:00 78 05/31/17 00:50 96.2 89 18 112/79 (90) 99 05/31/17 00:00 80 05/30/17 20:50 95.9 90 18 118/82 (94) 100 05/30/17 20:00 84 05/30/17 18:50 98.0 75 18 117/72 100 05/30/17 18:15 96.0 74 18 114/66 100 05/30/17 18:02 96.1 76 18 113/64 98 05/30/17 15:50 96.3 79 20 109/70 (83) 95 I/O 05/30/17 05/30/17 05/30/17 05/31/17 05/31/17 05/31/17 07:00 15:00 23:00 07:00 15:00 23:00 Intake Total 828 ml 500 ml 1204 ml Output Total 875 ml 350 ml 400 ml Balance -47 ml 500 ml 854 ml -400 ml Intake Oral 828 ml 500 ml IV Total 500 ml 500 ml Platelets 194 ml Blood Product IV Normal Saline Flush 10 ml Output Urine Total 875 ml 350 ml 400 ml # Voids 1 1 # Bowel Movements 0 Result Diagram: 05/31/17 0530 05/31/17 0530 Imaging Last Impressions Chest X-Ray 05/16/17 0700 Signed Impressions: Service Date/Time: Tuesday, May 16, 2017 07:41 - CONCLUSION: The lungs are clear. No evidence of pneumothorax. Ethan Sabillon MD [facility] 05/15/17 0000 Signed Impressions: Service Date/Time: Monday, May 15, 2017 14:57 - CONCLUSION: Normal study. Ejection fraction 72%% Man Burden MD Catheter Placement X-Ray 05/15/17 0000 Signed Impressions: Service Date/Time: Monday, May 15, 2017 17:46 - CONCLUSION: Uncomplicated line placement as above. Man Burden MD Other Results Laboratory Tests Test 05/31/17 05:30 White Blood Count 0.2 Red Blood Count 2.49 Hemoglobin 7.3 Hematocrit 21.6 Mean Corpuscular Volume 87.1 Mean Corpuscular Hemoglobin 29.2 Mean Corpuscular Hemoglobin Concent 33.6 Red Cell Distribution Width 14.9 Platelet Count 19 Mean Platelet Volume 8.0 CBC Comment AUTO DIFF Differential Total Cells Counted 20 Lymphocytes % 85 Monocytes % 10 Neutrophils # (Manual) 0.0 Differential Comment FINAL DIFF MANUAL Plasma Cells 5 Platelet Estimate RARE Platelet Morphology Comment NORMAL Red Cell Morphology Comment NORMAL Haptoglobin 359 Prothrombin Time 13.5 Prothromb Time International Ratio 1.2 Activated Partial Thromboplast Time 33.9 Fibrinogen 765 Blood Urea Nitrogen 12 Creatinine 0.71 Random Glucose 93 Total Protein 5.6 Albumin 1.7 Calcium Level 8.4 Alkaline Phosphatase 70 Aspartate Amino Transf (AST/SGOT) 10 Alanine Aminotransferase (ALT/SGPT) 32 Lactate Dehydrogenase 98 Total Bilirubin 1.6 Sodium Level 139 Potassium Level 3.9 Chloride Level 104 Carbon Dioxide Level 26.8 Anion Gap 8 Estimat Glomerular Filtration Rate 110 Date/Time Source Procedure Growth Status 05/28/17 19:35 Blood Peripheral Aerobic Blood Culture - Preliminary NO GROWTH IN 3 DAYS Resulted 05/28/17 19:35 Blood Peripheral Anaerobic Blood Culture - Preliminary NO GROWTH IN 3 DAYS Resulted ROS General: Other (disoriented ) Neuro/MS: Other (left knee pain, lifting right arm better ) Physical Exam Physical Exam GENERAL: This is a well-nourished, well-developed patient, in no apparent distress. SKIN: Petechial rash noted to bilateral pretibial areas. Skin pale and cool to touch HEAD: Atraumatic. Normocephalic. No temporal or scalp tenderness. EYES: Pupils equal round and reactive. Extraocular motions intact. No scleral icterus. No injection or drainage. ENT: Nose without bleeding, purulent drainage or septal hematoma. Throat without erythema, tonsillar hypertrophy or exudate. Uvula midline. Airway patent. NECK: Trachea midline. No JVD or lymphadenopathy. Supple, nontender, no meningeal signs. CARDIOVASCULAR: Regular rate and rhythm without murmurs, gallops, or rubs. RESPIRATORY: Clear to auscultation. Breath sounds equal bilaterally. No wheezes , rales, or rhonchi. Port-A-Cath noted to left chest wall area. GASTROINTESTINAL: Abdomen soft, non-tender, nondistended. No hepato-splenomegaly , or palpable masses. No guarding. MUSCULOSKELETAL: Left knee is less swollen. Painful with flexion. Right shoulder tender, no erythema noted. No deformity. Able to bring up right arm up to eye level,very painful with abduction. NEUROLOGICAL: Awake, disoriented. No focal deficit. 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 Admitted for chemotherapy induction. Acute myeloblastic leukemia Pancytopenia -Dr. Ibanez managing -Continue with Bactrim Levaquin Diflucan and acyclovir -completed chemo 05/23 -Continue with blood product replacement is needed, will receive PRBC today -Monitor for bone marrow recovery Coagulopathy -Monitor for bleeding - fibrinogen levels per oncology, elevated. GERD [place] esophagus -Continue Protonix 20 mg by mouth daily Anxiety and depression -Continue with Celexa 20 mg by mouth daily -continue Xanax PRN -disoriented today, d/w Ana. Kathy, will check CT of head Familial tremor, stable -continue with medical management Left knee and right shoulder pain, ? septic joint, effusion -MRI left knee noted, joint effusion, unable to have arthrocentesis due to low platelets. -ID has been consulted, input appreciated -Continue with empiric antibiotic -Continue with Allopurinol 100 mg po bid -Continue [place] PRN -Appreciate orthopedic input, doesn't believe septic joint. At this time patient is high risk for aspiration. Recommends to continue with medical management. Positive blood cultures, ? Bacteremia, left knee effusion. -Appreciate ID input -Continue with empiric antibiotics -Blood and line cultures positive for Staph epi -blood cultures repeated, so far negative. Continue to follow -May require removal of port if bacteremia persists per ID recommendations. Right arm swelling, positive for DVT cephalic vein -Elevate arm as needed -Warm compresses -no anticoagulation recommended at this time due to low platelets. -Right arm with infiltration site that is reddened, hardened, crusting. ? cellulitis No SCDs or anticoagulation recommended at this time due to thrombocytopenia Continue Protonix for GI prophylaxis PT and OT to increase mobility, pt. refuses to get up. Monitor CBC Condition guarded D/W RN D/W pt D/W Goldie Guzman Patient was seen by myself and Dr. Kaur, this note is written on his behalf Problem Qualifiers (1) AML (acute myeloblastic leukemia): Qualified Codes: C92.00 - Acute myeloblastic leukemia, not having achieved remission Viola Sanon May 31, 2017 15:40
--- NOTE | 2017-05-31 15:44 | HHI.PR ---
Addendum to Inpatient Note Additional Information pt see today around 3:30 full note to follow UIcreased confusion and new onset RUE swelling /redness US noted PIV 05/28-: removed BC x 2 add cefepime dw Marta Lucia MD May 31, 2017 15:44
--- NOTE | 2017-05-31 16:19 | PD.WCN.NOT ---
Wound Consult Description: Received consult for wound management of buttock from Doctor Shar Ibanez Communicated with: LENA dowd and Doctor Shar Ibanez Recommendation: 1.Please cleanse buttock area with soap and water and pat dry. Apply Calaz[place] barrier cream BID and PRN and leave open to air. 2. Turn and reposition patient every 2 hours or PRN for comfort 3. Please obtain [place] [facility] bed or if not available order K-4 bed from the [facility] Additional Information: Patient seen around 15:30. Patient is noted laying in regular bed positioned to L side with pillow. Repositioned patient for assessment with the assistance of Reba dowd, LOOM DOFFER, and sports book writer to reveal non blanchable purple discoloration to L upper buttock that measures ~4cm x ~3cm. Periwound presents with scar tissue and blanchable pink and erythematous skin. R buttock presents with small area of macerated skin measuring ~1cm x~1cm with surrounding pink and light purple blanchable discoloration. Left buttock area open to air. Patient is complaining of pain in L knee when turned is not allowing nurses and CNAs on floor to reposition him. Spoke with patient and encouraged patient to let CNAs and Nurses on the floor turn and reposition him. Kari Wyatt [facility] May 31, 2017 16:19
--- NOTE | 2017-05-31 19:48 | RADRPT ---
EXAM DATE/TIME: 05/31/2017 19:34 [facility] COMPARISON: No previous studies available for comparison. INDICATIONS : Altered mental status. RADIATION DOSE: 43.66 CTDIvol (mGy) MEDICAL HISTORY : Lymphoma. SURGICAL HISTORY : Cholecystectomy. ENCOUNTER: Initial ACUITY: 1 day PAIN SCALE: 0/10 LOCATION: cranial TECHNIQUE: Multiple contiguous axial images were obtained of the head. Using automated exposure control and adj ustment of the mA and/or kV according to patient size, radiation dose was kept as low as reasonably a chievable to obtain optimal diagnostic quality images. DICOM format image data is available electro nically for review and comparison. FINDINGS: CEREBRUM: The ventricles are normal for age. No evidence of midline shift, mass lesion, hemorrhage or acute in farction. No extra-axial fluid collections are seen. POSTERIOR FOSSA: The cerebellum and brainstem are intact. The 4th ventricle is midline. The cerebellopontine angle i s unremarkable. EXTRACRANIAL: The visualized portion of the orbits is intact. SKULL: The calvaria is intact. No evidence of skull fracture. CONCLUSION: Negative noncontrast head CT. Man Ashton MD on May 31, 2017 at 19:46 Board Certified Radiologist. This report was verified electronically.
[2017-05-31] MEDS: ACETAMINOPHEN 325 MG TAB PO PRN (21:08)
[2017-05-31] MEDS: diphenhydrAMINE HCL 25 MG CAP PO PRN (21:08)
[2017-05-31] MEDS ORDERED: DEXAMETHASONE SOD PHOS 20 MG/5 ML VIAL IV PUSH ONE (22:00)
--- NOTE | 2017-05-31 22:49 | HHI.IDPN ---
Subjective Subjective Remarks Delayed entry- pt seen today around 1530 Pt is confused and lethargic co new onset R forearm swelling, redness and pain and worsening pain of L knee PIV removed form RUE 2 days ago US with thrombosis No fever Antibiotics vanco Allergies: Coded Allergies: No Known Allergies (Unverified , 05/10/17) Objective . Vital Signs Date Time Temp Pulse Resp B/P (MAP) Pulse Ox O2 Delivery O2 Flow Rate FiO2 05/31/17 21:16 96.3 86 19 121/71 98 05/31/17 21:12 97.2 90 19 114/73 (87) 96 05/31/17 15:50 96.2 86 20 121/76 (91) 99 05/31/17 11:50 96.4 85 20 131/70 (90) 96 05/31/17 07:50 97.0 88 20 137/74 (95) 95 05/31/17 05:44 96.3 66 16 140/71 (94) 100 05/31/17 04:00 78 05/31/17 00:50 96.2 89 18 112/79 (90) 99 05/31/17 00:00 80 05/31/17 05/31/17 06/01/17 15:00 23:00 07:00 Intake Total 740 ml Output Total 450 ml Balance 290 ml Intake Oral 720 ml Blood Product IV Normal Saline Flush 20 ml Output Urine Total 450 ml # Voids 0 . Laboratory Tests Test 05/30/17 05:00 05/31/17 05:30 White Blood Count 0.2 TH/MM3 0.2 TH/MM3 Red Blood Count 2.68 MIL/MM3 2.49 MIL/MM3 Hemoglobin 7.9 GM/DL 7.3 GM/DL Hematocrit 23.2 % 21.6 % Mean Corpuscular Volume 86.4 FL 87.1 FL Mean Corpuscular Hemoglobin 29.5 PG 29.2 PG Mean Corpuscular Hemoglobin Concent 34.1 % 33.6 % Red Cell Distribution Width 15.3 % 14.9 % Platelet Count 8 TH/MM3 19 TH/MM3 Mean Platelet Volume 6.8 FL 8.0 FL CBC Comment AUTO DIFF AUTO DIFF Differential Total Cells Counted 15 20 Lymphocytes % 100 % 85 % Neutrophils # (Manual) 0.0 TH/MM3 0.0 TH/MM3 Differential Comment FINAL DIFF MANUAL FINAL DIFF MANUAL Platelet Estimate RARE RARE Platelet Morphology Comment NORMAL NORMAL Rouleau PRESENT Monocytes % 10 % Plasma Cells 5 % Red Cell Morphology Comment NORMAL Haptoglobin 359 MG/DL Laboratory Tests Test 05/30/17 05:00 05/31/17 05:30 Blood Urea Nitrogen 13 MG/DL 12 MG/DL Creatinine 0.75 MG/DL 0.71 MG/DL Random Glucose 100 MG/DL 93 MG/DL Total Protein 5.4 GM/DL 5.6 GM/DL Albumin 1.8 GM/DL 1.7 GM/DL Calcium Level 8.3 MG/DL 8.4 MG/DL Alkaline Phosphatase 67 U/L 70 U/L Aspartate Amino Transf (AST/SGOT) 11 U/L 10 U/L Alanine Aminotransferase (ALT/SGPT) 30 U/L 32 U/L Total Bilirubin 1.7 MG/DL 1.6 MG/DL Sodium Level 137 MEQ/L 139 MEQ/L Potassium Level 4.0 MEQ/L 3.9 MEQ/L Chloride Level 104 MEQ/L 104 MEQ/L Carbon Dioxide Level 26.1 MEQ/L 26.8 MEQ/L Anion Gap 7 MEQ/L 8 MEQ/L Estimat Glomerular Filtration Rate 103 ML/MIN 110 ML/MIN Lactate Dehydrogenase 98 U/L Microbiology Date/Time Source Procedure Growth Status 05/31/17 16:21 Blood Peripheral Aerobic Blood Culture Pending Received 05/31/17 16:21 Blood Peripheral Anaerobic Blood Culture Pending Received 05/31/17 16:20 Blood Peripheral Aerobic Blood Culture Pending Received 05/31/17 16:20 Blood Peripheral Anaerobic Blood Culture Pending Received Imaging Last Impressions Head CT 05/31/17 1755 Signed Impressions: Service Date/Time: May 19:34 - CONCLUSION: Negative noncontrast head CT. Man Ashton MD Upper Extremity Ultrasound 05/27/17 0000 Signed Impressions: Service Date/Time: Saturday, May 27, 2017 17:01 - CONCLUSION: 1. Acute thrombosis of the cephalic vein in the right forearm. 2. Otherwise, no sonographic evidence for right upper extremity DVT. Yunier Lange MD Shoulder X-Ray 05/25/17 0000 Signed Impressions: Service Date/Time: Thursday, May 25, 2017 14:18 - CONCLUSION: Negative for fracture. MRI of the knee had shown substantial leukemic infiltration. Jason Crawford MD FACR Knee X-Ray 05/25/17 0000 Signed Impressions: Service Date/Time: Thursday, May 25, 2017 14:21 - CONCLUSION: Negative for fracture. Moderate joint effusion. Jason Crawford MD FACR Knee MRI 05/25/17 0000 Signed Impressions: Service Date/Time: Thursday, May 25, 2017 13:35 - CONCLUSION: Joint effusion as described above intense enhancement. Considerations would include both inflammatory process as well as involvement with leukemia Marrow placement show intense enhancement consistent with leukemic infiltration. Jason Crawford MD FACR Chest X-Ray 05/16/17 0700 Signed Impressions: Service Date/Time: Tuesday, May 16, 2017 07:41 - CONCLUSION: The lungs are clear. No evidence of pneumothorax. Ethan Sabillon MD [facility] 05/15/17 0000 Signed Impressions: Service Date/Time: Monday, May 15, 2017 14:57 - CONCLUSION: Normal study. Ejection fraction 72%% Man Burden MD Catheter Placement X-Ray 05/15/17 0000 Signed Impressions: Service Date/Time: Monday, May 15, 2017 17:46 - CONCLUSION: Uncomplicated line placement as above. Man Burden MD Physical Exam CONSTITUTIONAL/GENERAL: This is an adequately nourished patient, in no apparent distress. TUBES/LINES/DRAINS: infusaport in place R chest, looks OK, not tender to palpation SKIN: No jaundice, petechial rash BLE . . Skin temperature appropriate. Not diaphoretic. HEAD: Atraumatic. Normocephalic. EYES: Pupils equal and round and reactive. Extraocular motions intact. No scleral icterus. No injection or drainage. Fundi not examined. ENT: Hearing grossly normal. Nose without bleeding or purulent drainage. Throat without visible erythema, exudates, masses, or lesions. NECK: Trachea midline. Supple, nontender. . CARDIOVASCULAR: Regular rate and rhythm without murmurs, gallops, or rubs. No JVD. Peripheral pulses symmetric. RESPIRATORY/CHEST: Symmetric, unlabored respirations. Clear to auscultation. Breath sounds equal bilaterally. No wheezes, rales, or rhonchi. GASTROINTESTINAL: Abdomen soft, non-tender, nondistended. No hepato-splenomegaly , or palpable masses. No guarding. Bowel sounds present. GENITOURINARY: Without palpable bladder distension. MUSCULOSKELETAL: Extremities without clubbing, cyanosis, or edema. + L knee effusion no change . NO redness ROM limited severely 2/2 pain No erythema No calf tenderness. No mottling or clubbing. R shoulder also w/o e/o effusion RUE with edema, erythema, tender to palpation + palpable tender cords LYMPHATICS: No palpable cervical or supraclavicular adenopathy. NEUROLOGICAL: Lethargic, arousable . Confused Motor and sensory grossly within normal limits. Follows commands. Clear speech. Moves all extremities. PSYCHIATRIC: No obvious anxiety/depression. no apparent hallucinations or other psychotic thought process. Assessment & Plan Remarks MDS with leukemic tranformation sp chemo, neutropenic L knee effusion, doubt septic arthritis - also image dw radiology: not likely septic arthritis pain is persistent and not improving Staph epi bacteremia source is likely PORT sustained last clx are negative Acute thrombosis of the cephalic vein in the right forearm aw PIV - cont vancomycin - add cefepime - repeat blood clx - L knee arthrocenthesis if still concerns of septic arthritis arise Marta Purdy MD May 31, 2017 22:49
[2017-06-01] VITALS (13 sets, daily range): BP systolic 107–140; BP diastolic 55–79; PULSE 60–88; RESP 16–20; TEMP 97–98.4; O2SAT 93–100
[2017-06-01] MEDS: VANCOMYCIN INJ 1,500 MG in SODIUM CHLORID 0.9% 500 ML INJ 500 ML IV SCH ×3 (00:41→19:39)
[2017-06-01] MEDS: CEFEPIME INJ 2,000 MG in SODIUM CHLORIDE 0.9% INJ 100 ML IV SCH ×4 (00:42→23:34)
[2017-06-01] MEDS: ALPRAZolam 1 MG TAB PO SCH ×2 (00:44→21:07)
[2017-06-01 06:46] LABS: APTT (PATIENT) 31.5 SEC (24.3-30.1); INTERNATIONAL NORMALIZED RATIO 1.2 RATIO; PROTHROMBIN TIME - PATIENT 13.4 SEC (9.8-11.6)
[2017-06-01 06:59] LABS: HEMATOCRIT 23.5 % (39.0-51.0); MEAN CELL VOLUME 87.3 FL (80.0-100.0); MEAN CORPUSCULAR HEMOGLOBIN 29.6 PG (27.0-34.0); MEAN CORPUSCULAR HGB CONC 33.9 % (32.0-36.0); RED BLOOD COUNT 2.69 MIL/MM3 (4.50-5.90); RED CELL DISTRIBUTION WIDTH 14.7 % (11.6-17.2); WHITE BLOOD COUNT 0.1 TH/MM3 (4.0-11.0)
[2017-06-01 07:00] LABS: ALT (GPT) 30 U/L (12-78); ANION GAP 7 MEQ/L (5-15); AST (GOT) 9 U/L (15-37); BICARBONATE 25.7 MEQ/L (21.0-32.0); BLOOD UREA NITROGEN 15 MG/DL (7-18); CHLORIDE 106 MEQ/L (98-107); GLOMERULAR FILTRATION RATE 97 ML/MIN (>89); POTASSIUM 4.2 MEQ/L (3.5-5.1); SODIUM (NA) 139 MEQ/L (136-145)
[2017-06-01 07:02] LABS: ALKALINE PHOSPHATASE 84 U/L (45-117); TOTAL BILIRUBIN ADULT 1.1 MG/DL (0.2-1.0)
[2017-06-01 07:09] LABS: HEMO FLAGS AUTO DIFF
[2017-06-01 07:12] LABS: PLATELET COUNT 11 TH/MM3 (150-450)
[2017-06-01] MEDS ORDERED: SODIUM CHLOR 0.9% 250 ML INJ 250 ML IV ONE (08:00)
--- NOTE | 2017-06-01 08:02 | RADRPT ---
EXAM DATE/TIME: 06/01/2017 07:21 [facility] COMPARISON: CHEST SINGLE AP, May 16, 2017, 7:41. INDICATIONS : Fever, acute leukemia, short of breath MEDICAL HISTORY : Leukemia. SURGICAL HISTORY : None. Cholecystectomy. Lithotripsy. Chemotherapy. ENCOUNTER: Initial ACUITY: 2 days PAIN SCORE: 0/10 LOCATION: Bilateral chest FINDINGS: A single view of the chest demonstrates minimal left retrocardiac density. Cardiomegaly. Right-sided Yklyot-o-Vusv catheter unchanged. The cardiomediastinal contours are unremarkable. Osseous structure s are intact. CONCLUSION: Left basilar density.. Siddharth Diamond MD on June 01, 2017 at 7:59 Board Certified Radiologist. This report was verified electronically.
[2017-06-01 08:36] LABS: OVALOCYTES 1+ (NORMAL); PLASMA CELLS 10 % (0-0); PLATELET ESTIMATE SMEAR RARE (NORMAL); PLATELET MORPHOLOGY NORMAL (NORMAL); SCAN/DIFF FINAL DIFF MANUAL; WBC DIFF SAMPLE 10
[2017-06-01] MEDS: ACYCLOVIR 200 MG CAP PO SCH ×2 (08:41→19:40)
[2017-06-01] MEDS: MEGESTROL ACETATE SUSP 400 MG/10 ML CUP PO SCH (08:41)
[2017-06-01] MEDS: FLUCONAZOLE 100 MG TAB PO SCH (08:41)
[2017-06-01] MEDS: PANTOPRAZOLE SOD 20 MG DELAYED RELEASE TAB PO SCH (08:41)
[2017-06-01] MEDS: CITALOPRAM HYDROBROMIDE 20 MG TAB PO SCH (08:41)
[2017-06-01] MEDS: NYSTAT/DIPHENHY/LIDO MOUTHWASH (Adult) 120ML SWISH-SWAL SCH ×4 (09:00→19:41)
[2017-06-01] MEDS ORDERED: PILL SPLITTER OTHER PRN (10:00)
[2017-06-01] MEDS: METOPROLOL TARTRATE 25 MG TAB PO SCH ×2 (11:07→19:43)
[2017-06-01] MEDS ORDERED: MIDAZOLAM HCL 2 MG/2 ML VIAL ONE ×2 (11:32→12:21)
--- NOTE | 2017-06-01 11:33 | PD.ONC.PN ---
Subjective Subjective Remarks Afebrile overnight. Patient resting in room in nad. Denies pain at present. Had a short run of V-tach overnight. Now back in sinus rhythm. Objective Data Date Time Temp Pulse Resp B/P (MAP) Pulse Ox O2 Delivery O2 Flow Rate FiO2 06/01/17 08:00 97.2 87 20 128/66 (86) 96 06/01/17 04:00 97.3 77 18 119/67 (84) 96 06/01/17 00:25 98.1 75 19 120/63 (82) 97 06/01/17 00:00 98.4 88 16 113/55 (74) 95 05/31/17 22:50 19 05/31/17 21:16 96.3 86 19 121/71 98 05/31/17 21:12 97.2 90 19 114/73 (87) 96 05/31/17 21:00 20 05/31/17 15:50 96.2 86 20 121/76 (91) 99 05/31/17 11:50 96.4 85 20 131/70 (90) 96 06/01/17 06/01/17 06/01/17 07:00 15:00 23:00 Intake Total 420 ml Output Total 525 ml Balance -105 ml Result Diagram: 06/01/17 0559 06/01/17 0559 Laboratory Results Laboratory Tests Test 06/01/17 05:59 White Blood Count 0.1 TH/MM3 Red Blood Count 2.69 MIL/MM3 Hemoglobin 8.0 GM/DL Hematocrit 23.5 % Mean Corpuscular Volume 87.3 FL Mean Corpuscular Hemoglobin 29.6 PG Mean Corpuscular Hemoglobin Concent 33.9 % Red Cell Distribution Width 14.7 % Platelet Count 11 TH/MM3 Mean Platelet Volume 8.0 FL CBC Comment AUTO DIFF Differential Total Cells Counted 10 Lymphocytes % 60 % Monocytes % 30 % Neutrophils # (Manual) 0.0 TH/MM3 Differential Comment FINAL DIFF MANUAL Plasma Cells 10 % Platelet Estimate RARE Platelet Morphology Comment NORMAL Ovalocytes 1+ Prothrombin Time 13.4 SEC Prothromb Time International Ratio 1.2 RATIO Activated Partial Thromboplast Time 31.5 SEC Blood Urea Nitrogen 15 MG/DL Creatinine 0.79 MG/DL Random Glucose 145 MG/DL Total Protein 5.7 GM/DL Albumin 1.7 GM/DL Calcium Level 8.0 MG/DL Alkaline Phosphatase 84 U/L Aspartate Amino Transf (AST/SGOT) 9 U/L Alanine Aminotransferase (ALT/SGPT) 30 U/L Total Bilirubin 1.1 MG/DL Sodium Level 139 MEQ/L Potassium Level 4.2 MEQ/L Chloride Level 106 MEQ/L Carbon Dioxide Level 25.7 MEQ/L Anion Gap 7 MEQ/L Estimat Glomerular Filtration Rate 97 ML/MIN Magnesium Level 2.2 MG/DL Culture Results Microbiology Date/Time Source Procedure Growth Status 05/31/17 16:21 Blood Peripheral Aerobic Blood Culture - Preliminary NO GROWTH IN 1 DAY Resulted 05/31/17 16:21 Blood Peripheral Anaerobic Blood Culture - Preliminary NO GROWTH IN 1 DAY Resulted 05/31/17 16:20 Blood Peripheral Aerobic Blood Culture - Preliminary NO GROWTH IN 1 DAY Resulted 05/31/17 16:20 Blood Peripheral Anaerobic Blood Culture - Preliminary NO GROWTH IN 1 DAY Resulted Imaging Studies Last 24 hours Impressions Chest X-Ray 06/01/17 0600 Signed Impressions: Service Date/Time: Thursday, June 01, 2017 07:21 - CONCLUSION: Left basilar density.. Siddharth Diamond MD Head CT 05/31/17 1755 Signed Impressions: Service Date/Time: May 19:34 - CONCLUSION: Negative noncontrast head CT. Man Ashton MD Administered Medications Medications (Trade) Dose Ordered Sig/Ivelisse Route PRN Reason Start Time Stop Time Status Last Admin Dose Admin Acetaminophen (Tylenol) 650 mg Q4H PRN PO fever>100.4 05/15/17 13:00 05/31/17 21:08 Citalopram Hydrobromide (CeleXA) 20 mg DAILY PO 05/16/17 09:00 06/01/17 08:41 Pantoprazole Sodium (Protonix) 20 mg DAILY PO 05/16/17 09:00 06/01/17 08:41 Ondansetron HCl (Zofran Inj) 4 mg Q6HR PRN IV PUSH nausea 05/15/17 14:00 05/16/17 10:30 Sodium Chloride (NS Flush) 5 ml UNSCH PRN IVF SEE PROTOCOL 05/15/17 15:00 05/26/17 21:47 Trimethoprim/ Sulfamethoxazole (Bactrim Ds 800-160 Mg) 1 tab MoWeFr@09 PO 05/16/17 09:00 Future Hold 05/25/17 08:37 Fluconazole (Diflucan) 100 mg DAILY PO 05/16/17 09:00 06/01/17 08:41 Acyclovir (Zovirax) 400 mg BID PO 05/16/17 09:00 06/01/17 08:41 Multi-Ingredient Mouthwash/Gargle (Magic Mouthwash Adult Liq) 5 ml QID SWISH-SWAL 05/16/17 13:00 05/31/17 09:00 Megestrol Acetate (Megace Liq) 300 mg DAILY PO 05/16/17 14:00 06/01/17 08:41 Alprazolam (Xanax) 1 mg HS PO 05/20/17 21:00 06/09/17 09:59 06/01/17 00:44 Alprazolam (Xanax) 0.5 mg Q8H PRN PO anxiety 05/20/17 10:15 Future Hold 05/31/17 09:46 Magnesium Hydroxide (Milk Of Magnesia Liq) 30 ml DAILY PRN PO CONSTIPATION 05/21/17 11:30 05/21/17 16:54 Vancomycin HCl 1500 mg/Sodium Chloride 515 ml @ 250 mls/hr Q12H IV 05/26/17 08:00 06/01/17 08:40 Diphenhydramine HCl (Benadryl) 25 mg Q4H PRN PO SEE LABEL COMMENTS 05/31/17 11:00 05/31/17 21:08 Cefepime HCl 2000 mg/Sodium Chloride 100 ml @ 200 mls/hr Q8H IV 05/31/17 16:00 06/01/17 11:07 Metoprolol Tartrate (Lopressor) 12.5 mg BID PO 06/01/17 10:00 06/01/17 11:07 Objective Remarks GENERAL: Elderly male resting in room in [facility]. SKIN: Warm and dry. HEAD: Normocephalic. EYES: No injection or drainage. NECK: Supple, trachea midline. CARDIOVASCULAR: Regular rate and rhythm RESPIRATORY: Breath sounds equal bilaterally. No accessory muscle use. GASTROINTESTINAL: Abdomen soft, non-tender, nondistended. EXTREMITIES: No cyanosis. left knee remains swollen. right forearm with redness /swelling. NEUROLOGICAL: awake but lethargic. able to move extremities. Assessment/Plan Problem List: (1) AML (acute myeloblastic leukemia) ICD Codes: C92.00 - Acute myeloblastic leukemia, not having achieved remission Plan: 05/15/17: Admission. given Hydrea. [facility] performed Leukapheresis bringing WBC from >100K to 44K. 05/16/17: D1. SONIA-C + Maria Del Rosario. 1 unit pRBC 05/17/17: D2. no transfusion. tolerating chemo 05/18/17: D3. no transfusion. 05/19/17: D4. 1 unit platelets today. No evidence of tumor lysis. Pt finished idarubicin yesterday. Continue SONIA-C. 05/20/17 D5: 1 unit platelets, 2 units PRBC's today. Will add on xanax prn and 1mg xanax at HS scheduled. Continue chemo, continue to monitor blood counts. 05/21/17.D6: No transfusion, start lactulose for Bm, continue chemo 05/22/17:D7 05/23/17: D8: Pt to have final bag chemo hung tonight. Transfuse 1 unit irradiated platelets, 1 unit irradiated PRBC's today. 05/24/17: D9: We'll transfuse 1 unit irradiated packed red blood cells today for hemoglobin of 6.9 05/25/17: D10. transfuse 1 unit platelets. pain in left knee and right shoulder. swelling in left knee. 05/26/17: D11. 1 unit platelets, 1 unit pRBC. 05/27/17: D12. 1 unit pRBC. 05/28/17: D13. no transfusion 05/29/17: D14. 1 unit pRBC 05/30/17: D15. 1 unit platelets 05/31/17: D16. 1 unit pRBC 06/01/17: D17: 1 unit platelets. 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 --He presented with hyperleukocytosis and acute blast crises. --on Allopurinol 100mg PO BID for prophylaxis (2) Pancytopenia ICD Codes: D61.818 - Other pancytopenia Status: Acute Plan: --transfuse him for hemoglobin of 7 or less. -- irradiated/CMV-negative blood products. --transfuse for platelet count of 10 or less. --Diflucan 100mg daily, Acyclovir 400mg PO BID (3) Coagulopathy ICD Codes: D68.9 - Coagulation defect, unspecified Status: Acute Plan: --Check daily fibrinogen levels. --check his coags and LDH and haptoglobin [id number]. (4) Swelling of left knee joint ICD Codes: M25.462 - Effusion, left knee Plan: --diff dx includes but is not limited to gout vs pseudogout, vs. hemarthrosis vs. septic joint vs. arthritis. --MRI of knee shows joint effusion, unable to tap until counts recover --on abx. ID following. --ortho saw patient on 05/30 and recommends medical management, close observation and intervention if symptoms worsen (5) Sepsis ICD Codes: A41.9 - Sepsis, unspecified organism Plan: --ID following --BC on 05/28 showed no growth --+BC--GPC --on Vanco/Cefepime Assessment 72y/o male with acute myeloid leukemia with blast crisis. 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 Plan 1. give 1 unit platelets 2. continue antibiotics 3. bone marrow biopsy today. Attending Statement The exam, history, and the medical decision-making described in the above note were completed with the assistance of the mid-level provider. I reviewed and agree with the findings presented. I attest that I had a [id number] encounter with the patient on the same day, and personally performed and documented my assessment and findings in the medical record High risk AML s/p Induction Bone marrow biopsy today 1 unit of platelets irradiated left knee swelling improving--less swollen and less tender overall very weak--encourage ambulation needs PT--not seen by PT today--re-consult--will need PT over the weekend episode of V-tach non-sustained-- Echo only shows diastolic dysfunction supportive care over the weekend remains severely neutropenic Long discussion with patient and his d/w rn o/n events reviewed Problem Qualifiers (1) AML (acute myeloblastic leukemia): Qualified Codes: C92.00 - Acute myeloblastic leukemia, not having achieved remission Oma Chavez Jun 01, 2017 11:33 Shar Ibanez MD Jun 01, 2017 23:21
--- NOTE | 2017-06-01 11:50 | HHI.PR ---
Subjective Remarks remains disoriented going for ct bone guided bone marrow bx left knee painful no fever difficult to obtain ROS Objective Objective Results - Vital Signs Date Time Temp Pulse Resp B/P (MAP) Pulse Ox O2 Delivery O2 Flow Rate FiO2 06/01/17 08:00 97.2 87 20 128/66 (86) 96 06/01/17 04:00 97.3 77 18 119/67 (84) 96 06/01/17 00:25 98.1 75 19 120/63 (82) 97 06/01/17 00:00 98.4 88 16 113/55 (74) 95 05/31/17 22:50 19 05/31/17 21:16 96.3 86 19 121/71 98 05/31/17 21:12 97.2 90 19 114/73 (87) 96 05/31/17 21:00 20 05/31/17 15:50 96.2 86 20 121/76 (91) 99 05/31/17 11:50 96.4 85 20 131/70 (90) 96 I/O 05/31/17 05/31/17 05/31/17 06/01/17 06/01/17 06/01/17 07:00 15:00 23:00 07:00 15:00 23:00 Intake Total 740 ml 420 ml Output Total 400 ml 450 ml 525 ml Balance -400 ml 290 ml -105 ml Intake Oral 720 ml Packed Cells 400 ml Blood Product IV Normal Saline Flush 20 ml 20 ml Output Urine Total 400 ml 450 ml 525 ml # Voids 1 0 Result Diagram: 06/01/17 0559 06/01/17 0559 Imaging Last Impressions Chest X-Ray 05/16/17 0700 Signed Impressions: Service Date/Time: Tuesday, May 16, 2017 07:41 - CONCLUSION: The lungs are clear. No evidence of pneumothorax. Ethan Sabillon MD [facility] 05/15/17 0000 Signed Impressions: Service Date/Time: Monday, May 15, 2017 14:57 - CONCLUSION: Normal study. Ejection fraction 72%% Man Burden MD Catheter Placement X-Ray 05/15/17 0000 Signed Impressions: Service Date/Time: Monday, May 15, 2017 17:46 - CONCLUSION: Uncomplicated line placement as above. Man Burden MD Other Results Laboratory Tests Test 06/01/17 05:59 White Blood Count 0.1 Red Blood Count 2.69 Hemoglobin 8.0 Hematocrit 23.5 Mean Corpuscular Volume 87.3 Mean Corpuscular Hemoglobin 29.6 Mean Corpuscular Hemoglobin Concent 33.9 Red Cell Distribution Width 14.7 Platelet Count 11 Mean Platelet Volume 8.0 CBC Comment AUTO DIFF Differential Total Cells Counted 10 Lymphocytes % 60 Monocytes % 30 Neutrophils # (Manual) 0.0 Differential Comment FINAL DIFF MANUAL Plasma Cells 10 Platelet Estimate RARE Platelet Morphology Comment NORMAL Ovalocytes 1+ Prothrombin Time 13.4 Prothromb Time International Ratio 1.2 Activated Partial Thromboplast Time 31.5 Blood Urea Nitrogen 15 Creatinine 0.79 Random Glucose 145 Total Protein 5.7 Albumin 1.7 Calcium Level 8.0 Alkaline Phosphatase 84 Aspartate Amino Transf (AST/SGOT) 9 Alanine Aminotransferase (ALT/SGPT) 30 Total Bilirubin 1.1 Sodium Level 139 Potassium Level 4.2 Chloride Level 106 Carbon Dioxide Level 25.7 Anion Gap 7 Estimat Glomerular Filtration Rate 97 Magnesium Level 2.2 Date/Time Source Procedure Growth Status 05/31/17 16:21 Blood Peripheral Aerobic Blood Culture - Preliminary NO GROWTH IN 1 DAY Resulted 05/31/17 16:21 Blood Peripheral Anaerobic Blood Culture - Preliminary NO GROWTH IN 1 DAY Resulted ROS General: Fatigue, Other (ROS difficult to obtain ) Neuro/MS: Other (left knee pain , right shoulder pain ) Physical Exam Physical Exam GENERAL: This is a well-nourished, well-developed patient, in no apparent distress. SKIN: Petechial rash noted to bilateral pretibial areas. Skin pale and cool to touch HEAD: Atraumatic. Normocephalic. No temporal or scalp tenderness. EYES: Pupils equal round and reactive. Extraocular motions intact. No scleral icterus. No injection or drainage. ENT: Nose without bleeding, purulent drainage or septal hematoma. Throat without erythema, tonsillar hypertrophy or exudate. Uvula midline. Airway patent. NECK: Trachea midline. No JVD or lymphadenopathy. Supple, nontender, no meningeal signs. CARDIOVASCULAR: Regular rate and rhythm without murmurs, gallops, or rubs. RESPIRATORY: Clear to auscultation. Breath sounds equal bilaterally. No wheezes , rales, or rhonchi. Port-A-Cath noted to left chest wall area. GASTROINTESTINAL: Abdomen soft, non-tender, nondistended. No hepato-splenomegaly , or palpable masses. No guarding. MUSCULOSKELETAL: Left knee is less swollen. Painful with flexion. Right shoulder tender, no erythema noted. No deformity. Able to bring up right arm up to eye level,very painful with abduction. NEUROLOGICAL: Awake, disoriented. No focal deficit. 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 Admitted for chemotherapy induction. Acute myeloblastic leukemia Pancytopenia -Dr. Ibanez managing -Continue with Bactrim Levaquin Diflucan and acyclovir -completed chemo 05/23 -Continue with blood product replacement is needed, will receive PRBC today -Monitor for bone marrow recovery Coagulopathy -Monitor for bleeding - fibrinogen levels per oncology, elevated. GERD [place] esophagus -Continue Protonix 20 mg by mouth daily Anxiety and depression -Continue with Celexa 20 mg by mouth daily -continue Xanax PRN Confused, poss metabolic encephalopathy -CT head no acute findings -limit narcotics Familial tremor, stable -continue with medical management Left knee and right shoulder pain, ? septic joint, effusion -MRI left knee noted, joint effusion, unable to have arthrocentesis due to low platelets. -ID has been consulted, input appreciated -Continue with empiric antibiotic, Cefepime added per ID -Continue with Allopurinol 100 mg po bid -Continue [place] PRN -Appreciate orthopedic input, doesn't believe septic joint. At this time patient is high risk for aspiration. Recommends to continue with medical management. Positive blood cultures, ? Bacteremia, left knee effusion. -Appreciate ID input -Continue with empiric antibiotics -Blood and line cultures positive for Staph epi -blood cultures repeated, so far negative. Continue to follow -May require removal of port if bacteremia persists per ID recommendations. Right arm swelling, positive for DVT cephalic vein -Elevate arm as needed -Warm compresses -no anticoagulation recommended at this time due to low platelets. -Right arm with infiltration site that is reddened, hardened, crusting. ? cellulitis No SCDs or anticoagulation recommended at this time due to thrombocytopenia Continue Protonix for GI prophylaxis PT and OT to increase mobility, pt. refuses to get up. For CT guided bone marrow bx today Condition guarded D/W RN D/W pt D/W Dr. Kaur Patient was seen by myself and Dr. Kaur, this note is written on his behalf Problem Qualifiers (1) AML (acute myeloblastic leukemia): Qualified Codes: C92.00 - Acute myeloblastic leukemia, not having achieved remission Viola Sanon Jun 01, 2017 11:50
--- NOTE | 2017-06-01 12:36 | PD.RAD ---
Post CT Procedure Prog Note Pre Procedure Diagnosis: (1) Anemia (2) Thrombocytopenia Post Procedure Diagnosis: Procedure Date: Jun 01, 2017 Supervising Radiologist: Siddharth Diamond Proceduralist/Assist: maddi mcginnis Estimated blood loss: none Anesthesia: Conscious Sedation Plan of Activity Patient to Unit: ROPU Patient Condition: Good See PACS Report for procedural detail/treatment Siddharth Diamond MD Jun 01, 2017 12:36
[2017-06-01 13:14] LABS: BONE MARROW PROCESSING COMPLETE; IRON STAIN DONE; JENNER GIEMSA STAIN DONE
[2017-06-01] MEDS: SODIUM CHLOR 0.9% 1000 ML INJ 1,000 ML IV SCH (15:30)
--- NOTE | 2017-06-01 15:40 | RADRPT ---
EXAM DATE/TIME: 06/01/2017 12:15 [place] COMPARISON: No previous studies available for comparison. INDICATIONS : Acute myeloid leukemia. SEDATION TIME: 30 minutes BIOPSY SITE: Right MEDICATION(S): 1.) 3 mg midazolam (Versed) IV 2.) 150 mcg fentanyl (Sublimaze) IV DEVICE(S): 1.) 11 gauge Bone marrow biopsy needle MEDICAL HISTORY : Leukemia. SURGICAL HISTORY : Cholecystectomy ENCOUNTER: Initial ACUITY: 1 day PAIN SCORE: 0/10 LOCATION: Right iliac A total of one core specimen(s) were obtained and sent to the laboratory for pathologic evaluation. PROCEDURE: 1. CT guided bone marrow biopsy. 2. Conscious sedation with continuous EKG and oximetry monitoring. 3. EKG and oximetry remained stable throughout the procedure. Prior to the procedure informed consent was obtained. Any appropriate prior imaging studies were rev iewed. Using automated exposure control and adjustment of the mA and/or kV according to patient size , radiation dose was kept as low as reasonably achievable to obtain optimal diagnostic quality images . DICOM format image data is available electronically for review and comparison. The site was prepped in a sterile fashion. Full sterile technique was used, including cap, mask, radha rile gloves and gown and a large sterile sheet. Hand hygiene and 2% chlorhexidine and/or betadine/al cohol prep was utilized per protocol for cutaneous antisepsis. The skin and subcutaneous tissues wer e infiltrated with local anesthetic solution. With CT guidance the previously identified target was localized. Biopsy was performed using the presc ribed needle as above. Following biopsy marrow aspiration was performed with repeat puncture. [place] te hemostasis was obtained with compression at the puncture site. Follow-up CT scan reveals no hemorrhage. Conscious sedation was performed with the prescribed dosages and duration as above in the presence of an independent trained radiology nurse to assist in the monitoring of the patient. EKG and oximetry remained stable throughout the procedure. The patient tolerated the procedure well and there were no complications. The patient was sent to Radiology Outpatient Unit in stable condition. CONCLUSION: 1. Uncomplicated CT guided bone marrow aspirate. 2. Uncomplicated CT guided bone marrow biopsy. Siddharth Diamond MD on June 01, 2017 at 15:38 Board Certified Radiologist. This report was verified electronically.
--- NOTE | 2017-06-01 16:25 | EKG ---
Date Performed: 06/01/2017 Time Performed: 08:10:51 PTAGE: 72 years EKG: Sinus rhythm WITH MARKED SINUS ARRHYTHMIA WITH FIRST DEGREE AV BLOCK MARKED LEFT AXIS DEVIATION Right bundle bran ch block LATERAL MYOCARDIAL INFARCTION , PROBABLY OLD ABNORMAL ECG Since PREVIOUS TRACING : new right bundle branch block PREVIOUS TRACIN11/30/2015 09.35 DOCTOR: Jimena Calvo Interpretating Date/Time 06/01/2017 16:23:59
[2017-06-02] VITALS (9 sets, daily range): BP systolic 106–118; BP diastolic 56–63; PULSE 54–82; RESP 18–20; TEMP 96.1–98; O2SAT 95–98
[2017-06-02 05:46] LABS: APTT (PATIENT) 32.5 SEC (24.3-30.1); INTERNATIONAL NORMALIZED RATIO 1.2 RATIO; PROTHROMBIN TIME - PATIENT 13.5 SEC (9.8-11.6)
[2017-06-02 05:59] LABS: ALT (GPT) 30 U/L (12-78); ANION GAP 2 MEQ/L (5-15); AST (GOT) 23 U/L (15-37); BICARBONATE 26.5 MEQ/L (21.0-32.0); BLOOD UREA NITROGEN 17 MG/DL (7-18); CHLORIDE 110 MEQ/L (98-107); GLOMERULAR FILTRATION RATE 106 ML/MIN (>89); MEAN CORPUSCULAR HEMOGLOBIN 29.2 PG (27.0-34.0); MEAN CORPUSCULAR HGB CONC 33.2 % (32.0-36.0); PLATELET COUNT 23 TH/MM3 (150-450); POTASSIUM 5.3 MEQ/L (3.5-5.1); RED BLOOD COUNT 2.21 MIL/MM3 (4.50-5.90); RED CELL DISTRIBUTION WIDTH 14.5 % (11.6-17.2); SODIUM (NA) 138 MEQ/L (136-145); WHITE BLOOD COUNT 0.3 TH/MM3 (4.0-11.0)
[2017-06-02 06:12] LABS: ALKALINE PHOSPHATASE 67 U/L (45-117); LDH SERUM 236 U/L (87-241); TOTAL BILIRUBIN ADULT 0.8 MG/DL (0.2-1.0)
[2017-06-02 06:30] LABS: HEMO FLAGS AUTO DIFF
[2017-06-02 06:32] LABS: HEMATOCRIT 19.5 % (39.0-51.0)
[2017-06-02] MEDS ORDERED: SODIUM CHLOR 0.9% 250 ML INJ 250 ML IV ONE (08:15)
[2017-06-02] MEDS: SODIUM CHLOR 0.9% 1000 ML INJ 1,000 ML IV SCH ×2 (08:51→20:35)
[2017-06-02] MEDS: CEFEPIME INJ 2,000 MG in SODIUM CHLORIDE 0.9% INJ 100 ML IV SCH ×2 (08:52→15:15)
[2017-06-02] MEDS: NYSTAT/DIPHENHY/LIDO MOUTHWASH (Adult) 120ML SWISH-SWAL SCH ×4 (08:55→19:17)
[2017-06-02] MEDS: CITALOPRAM HYDROBROMIDE 20 MG TAB PO SCH (08:55)
[2017-06-02] MEDS: PANTOPRAZOLE SOD 20 MG DELAYED RELEASE TAB PO SCH (08:55)
[2017-06-02] MEDS: FLUCONAZOLE 100 MG TAB PO SCH (08:55)
[2017-06-02] MEDS: MEGESTROL ACETATE SUSP 400 MG/10 ML CUP PO SCH (08:55)
[2017-06-02] MEDS: ACYCLOVIR 200 MG CAP PO SCH ×2 (08:55→19:17)
--- NOTE | 2017-06-02 09:06 | PD.ONC.PN ---
Subjective Subjective Remarks "I'm going to leave AMA today if I don't get a different room" Pt reports he has no knee pain at rest States PT has not been working with him Objective Data Date Time Temp Pulse Resp B/P (MAP) Pulse Ox O2 Delivery O2 Flow Rate FiO2 06/02/17 04:00 96.7 63 18 111/59 (76) 97 06/02/17 00:00 96.1 67 18 107/60 (76) 98 06/01/17 21:00 73 06/01/17 20:00 97.4 73 17 110/59 (76) 99 06/01/17 16:50 97.0 72 18 107/64 (78) 96 06/01/17 13:52 60 18 117/70 (86) 95 06/01/17 13:22 61 18 123/60 (81) 96 06/01/17 13:05 98.3 69 18 112/63 100 06/01/17 13:00 98.3 62 18 112/63 (79) 93 06/01/17 12:10 97.2 69 18 140/79 100 06/01/17 11:44 97.2 80 20 128/66 96 06/02/17 06/02/17 06/02/17 07:00 15:00 23:00 Intake Total 1834 ml Output Total 750 ml Balance 1084 ml Result Diagram: 06/02/17 0456 06/02/17 0456 Laboratory Results Laboratory Tests Test 06/01/17 11:34 06/02/17 04:56 White Blood Count 0.3 TH/MM3 Red Blood Count 2.21 MIL/MM3 Hemoglobin 6.5 GM/DL Hematocrit 19.5 % Mean Corpuscular Volume 88.0 FL Mean Corpuscular Hemoglobin 29.2 PG Mean Corpuscular Hemoglobin Concent 33.2 % Red Cell Distribution Width 14.5 % Platelet Count 23 TH/MM3 Mean Platelet Volume 7.8 FL CBC Comment AUTO DIFF Haptoglobin 379 MG/DL Prothrombin Time 13.5 SEC Prothromb Time International Ratio 1.2 RATIO Activated Partial Thromboplast Time 32.5 SEC Blood Urea Nitrogen 17 MG/DL Creatinine 0.73 MG/DL Random Glucose 104 MG/DL Total Protein 5.3 GM/DL Albumin 1.6 GM/DL Calcium Level 7.8 MG/DL Alkaline Phosphatase 67 U/L Aspartate Amino Transf (AST/SGOT) 23 U/L Alanine Aminotransferase (ALT/SGPT) 30 U/L Lactate Dehydrogenase 236 U/L Total Bilirubin 0.8 MG/DL Sodium Level 138 MEQ/L Potassium Level 5.3 MEQ/L Chloride Level 110 MEQ/L Carbon Dioxide Level 26.5 MEQ/L Anion Gap 2 MEQ/L Estimat Glomerular Filtration Rate 106 ML/MIN Culture Results Microbiology Date/Time Source Procedure Growth Status 05/31/17 16:21 Blood Peripheral Aerobic Blood Culture - Preliminary NO GROWTH IN 1 DAY Resulted 05/31/17 16:21 Blood Peripheral Anaerobic Blood Culture - Preliminary NO GROWTH IN 1 DAY Resulted 05/31/17 16:20 Blood Peripheral Aerobic Blood Culture - Preliminary NO GROWTH IN 1 DAY Resulted 05/31/17 16:20 Blood Peripheral Anaerobic Blood Culture - Preliminary NO GROWTH IN 1 DAY Resulted Administered Medications Medications (Trade) Dose Ordered Sig/Ivelisse Route PRN Reason Start Time Stop Time Status Last Admin Dose Admin Acetaminophen (Tylenol) 650 mg Q4H PRN PO fever>100.4 05/15/17 13:00 05/31/17 21:08 Citalopram Hydrobromide (CeleXA) 20 mg DAILY PO 05/16/17 09:00 06/01/17 08:41 Pantoprazole Sodium (Protonix) 20 mg DAILY PO 05/16/17 09:00 06/01/17 08:41 Ondansetron HCl (Zofran Inj) 4 mg Q6HR PRN IV PUSH nausea 05/15/17 14:00 05/16/17 10:30 Sodium Chloride (NS Flush) 5 ml UNSCH PRN IVF SEE PROTOCOL 05/15/17 15:00 05/26/17 21:47 Trimethoprim/ Sulfamethoxazole (Bactrim Ds 800-160 Mg) 1 tab MoWeFr@09 PO 05/16/17 09:00 Future Hold 05/25/17 08:37 Fluconazole (Diflucan) 100 mg DAILY PO 05/16/17 09:00 06/01/17 08:41 Acyclovir (Zovirax) 400 mg BID PO 05/16/17 09:00 06/01/17 19:40 Multi-Ingredient Mouthwash/Gargle (Magic Mouthwash Adult Liq) 5 ml QID SWISH-SWAL 05/16/17 13:00 06/01/17 18:12 Megestrol Acetate (Megace Liq) 300 mg DAILY PO 05/16/17 14:00 06/01/17 08:41 Alprazolam (Xanax) 1 mg HS PO 05/20/17 21:00 06/09/17 09:59 06/01/17 21:07 Alprazolam (Xanax) 0.5 mg Q8H PRN PO anxiety 05/20/17 10:15 Future hold 05/31/17 09:46 Magnesium Hydroxide (Milk Of Magnesia Liq) 30 ml DAILY PRN PO CONSTIPATION 05/21/17 11:30 05/21/17 16:54 Vancomycin HCl 1500 mg/Sodium Chloride 515 ml @ 250 mls/hr Q12H IV 05/26/17 08:00 06/01/17 19:39 Diphenhydramine HCl (Benadryl) 25 mg Q4H PRN PO SEE LABEL COMMENTS 05/31/17 11:00 05/31/17 21:08 Cefepime HCl 2000 mg/Sodium Chloride 100 ml @ 200 mls/hr Q8H IV 05/31/17 16:00 06/01/17 23:34 Metoprolol Tartrate (Lopressor) 12.5 mg BID PO 06/01/17 10:00 06/01/17 19:43 Sodium Chloride 1,000 ml @ 84 mls/hr [id number] IV 06/01/17 15:00 06/01/17 15:30 Objective Remarks GENERAL: Anxious older male discussing reasons of why he is planning to leave the hospital. SKIN: Warm and dry. HEAD: Normocephalic. EYES: No injection or drainage. NECK: Supple, trachea midline. CARDIOVASCULAR: Regular rate and rhythm RESPIRATORY: Breath sounds equal bilaterally. No accessory muscle use. GASTROINTESTINAL: Abdomen soft, non-tender, nondistended. EXTREMITIES: No cyanosis. Left knee remains swollen. Right forearm with redness /swelling. NEUROLOGICAL: Awake but lethargic. Able to move extremities. Assessment/Plan Problem List: (1) AML (acute myeloblastic leukemia) ICD Codes: C92.00 - Acute myeloblastic leukemia, not having achieved remission Plan: 05/15/17: Admission. given Hydrea. Onechar[place] performed Leukapheresis bringing WBC from >100K to 44K. 05/16/17: D1. SONIA-C + [facility] [place] [facility]. 1 unit pRBC 05/17/17: D2. no transfusion. tolerating chemo 05/18/17: D3. no transfusion. 05/19/17: D4. 1 unit platelets today. No evidence of tumor lysis. Pt finished idarubicin yesterday. Continue SONIA-C. 05/20/17 D5: 1 unit platelets, 2 units PRBC's today. Will add on xanax prn and 1mg xanax at HS scheduled. Continue chemo, continue to monitor blood counts. 05/21/17.D6: No transfusion, start lactulose for Bm, continue chemo 05/22/17:D7 05/23/17: D8: Pt to have final bag chemo hung tonight. Transfuse 1 unit irradiated platelets, 1 unit irradiated PRBC's today. 05/24/17: D9: We'll transfuse 1 unit irradiated packed red blood cells today for hemoglobin of 6.9 05/25/17: D10. transfuse 1 unit platelets. pain in left knee and right shoulder. swelling in left knee. 05/26/17: D11. 1 unit platelets, 1 unit pRBC. 05/27/17: D12. 1 unit pRBC. 05/28/17: D13. no transfusion 05/29/17: D14. 1 unit pRBC 05/30/17: D15. 1 unit platelets 05/31/17: D16. 1 unit pRBC 06/01/17: D17: 1 unit platelets. 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 --He presented with hyperleukocytosis and acute blast crises. --on Allopurinol 100mg PO BID for prophylaxis (2) Pancytopenia ICD Codes: D61.818 - Other pancytopenia Status: Acute Plan: --transfuse him for hemoglobin of 7 or less. -- irradiated/CMV-negative blood products. --transfuse for platelet count of 10 or less. --Diflucan 100mg daily, Acyclovir 400mg PO BID (3) Coagulopathy ICD Codes: D68.9 - Coagulation defect, unspecified Status: Acute Plan: --Check daily fibrinogen levels. --check his coags and LDH and haptoglobin [id number]. (4) Swelling of left knee joint ICD Codes: M25.462 - Effusion, left knee Plan: --diff dx includes but is not limited to gout vs pseudogout, vs. hemarthrosis vs. septic joint vs. arthritis. --MRI of knee shows joint effusion, unable to tap until counts recover --on abx. ID following. --ortho saw patient on 05/30 and recommends medical management, close observation and intervention if symptoms worsen (5) Sepsis ICD Codes: A41.9 - Sepsis, unspecified organism Plan: --ID following --BC on 05/28 showed no growth --+BC--GPC --on Vanco/Cefepime Assessment 72y/o male with acute myeloid leukemia with blast crisis. 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 Plan 1. Give 1 unit irradiated packed red blood cells 2. The patient is highly anxious; will resume his prn Xanax 3. Await bone marrow biopsy results 4. Will discuss with charge nurse to see if he can be moved to a room with a view. 5. We will ask physical therapy to work with him over the weekend Attending Statement The exam, history, and the medical decision-making described in the above note were completed with the assistance of the mid-level provider. I reviewed and agree with the findings presented. I attest that I had a [id number] encounter with the patient on the same day, and personally performed and documented my assessment and findings in the medical record. Pt seen and examined. Very fond of Dr. Kaur. Pt wants a different room, prefer 720 which is occupied. Discussed potential availability of another corner room tomorrow, he was willing to accept his. Supportive tx after remission induction for AML. Pancytopenia. Problem Qualifiers (1) AML (acute myeloblastic leukemia): Qualified Codes: C92.00 - Acute myeloblastic leukemia, not having achieved remission Arin Castillo Jun 02, 2017 09:06 Lena Garcias MD Jun 02, 2017 12:36
[2017-06-02] MEDS: VANCOMYCIN INJ 1,500 MG in SODIUM CHLORID 0.9% 500 ML INJ 500 ML IV SCH ×2 (10:21→19:17)
[2017-06-02] MEDS: ALPRAZolam 0.5 MG TAB PO PRN (11:12)
[2017-06-02 11:33] LABS: PLASMA CELLS 4 % (0-0); WBC DIFF SAMPLE 25
[2017-06-02 11:34] LABS: PLATELET ESTIMATE SMEAR LOW (NORMAL); PLATELET MORPHOLOGY NORMAL (NORMAL); SCAN/DIFF FINAL DIFF MANUAL
--- NOTE | 2017-06-02 13:49 | HHI.PR ---
Subjective Remarks Lying in room eyes closed Has no TV and no music around Initially non-talkative, but seemed to open up with conversation and vent , over depression and anxiety Color pale, lips dry Objective Objective Results - Vital Signs Date Time Temp Pulse Resp B/P (MAP) Pulse Ox O2 Delivery O2 Flow Rate FiO2 06/02/17 11:30 97.6 56 20 118/57 (77) 96 06/02/17 07:50 96.9 54 20 106/56 (73) 96 06/02/17 04:00 96.7 63 18 111/59 (76) 97 06/02/17 00:00 96.1 67 18 107/60 (76) 98 06/01/17 21:00 73 06/01/17 20:00 97.4 73 17 110/59 (76) 99 06/01/17 16:50 97.0 72 18 107/64 (78) 96 06/01/17 13:52 60 18 117/70 (86) 95 I/O 06/01/17 06/01/17 06/01/17 06/02/17 06/02/17 06/02/17 07:00 15:00 23:00 07:00 15:00 23:00 Intake Total 420 ml 309 ml 2500 ml 1834 ml Output Total 525 ml 1500 ml 750 ml Balance -105 ml 309 ml 1000 ml 1084 ml Intake Oral 1200 ml 240 ml IV Total 1300 ml 1594 ml Packed Cells 400 ml Platelets 296 ml Blood Product IV Normal Saline Flush 20 ml 13 ml Output Urine Total 525 ml 1500 ml 750 ml Result Diagram: 06/02/17 0456 06/02/17 0456 ROS General: Fatigue, Weakness, Other (10 point ROS done positives noted) HEENT: Other (lips dry no obvious sores) Neuro/MS: Confusion (mild more so anxious and depressed today), Other (right shoulder left knee, pain gradual improvement) Physical Exam Physical Exam PHYSICAL EXAMINATION GENERAL: male Eyes closed, currently on isolation for his pancytopenia He is awake, became more talkative with visit HEAD: Normocephalic, facial color pale Facial features appear symmetric. OROPHARYNGEAL: Oropharynx pale, dry NECK: Thin Trachea midline without deviation. CARDIAC: Occasional bradycardia to Regular rhythm, regular rate, S1 and S2 are heard. Heart rate range 54-67 LUNGS: Clear to auscultation bilaterally. No active wheeze or rhonchi ABDOMEN: Soft, nontender, flat, Bowel sounds soft, EXTREMITIES: Left knee trace edema. No lower extremity edema, warm to touch NEUROLOGICAL: Patient mood and affect anxious, depressive, has begin to talk and open up some today, still having some forgetfulness, but redirects himself SKIN, dry, pale A/P Assessment and Plan Acute myeloblastic leukemia Pancytopenia continues and coagulopathy, patient's requiring treatment regimen based on labs cleaning fibrinogen levels Dr. Ibanez and oncology team appreciate input chemo completed on 05/23, status post bone marrow biopsy, currently 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 Anemia per labs , PRBC today platelets increased GERD [place] esophagus, asymptomatic Comanagement with Protonix 20 mg by mouth daily Anxiety and depression As well as Confusion. poss metabolic encephalopathy Patient remembers bits and pieces of last few days, upset that his Xanax was removed, restarted today Greater than 30 minutes of listening to patient vent, basically upset over not being in remission and prolonged hospital stay Does still have some forgetfulness when he is talking, but redirects easily Encouraged him to listen to his music, turning on the TV, and continue venting as needed Left knee, with effusion, gradual improvement, able to have more movement pain, still has some mild edema Will need reevaluation once he recovers from current AML symptoms ID has been consulted, input appreciated, Cefepime and allopurinol Right shoulder, pain controlled, no complaints today, [place] when necessary effective Right arm DVT cephalic vein Elevate arm as needed, continue medical management, no voiced complaints today more focused on his anxiety and depression No SCDs or anticoagulation recommended at this time due to thrombocytopenia Protonix for GI prophylaxis PT and OT to work with patient today, continue patient needs to get out of bed and stay focused as much as possible Discussed with patient, supportive care Discussed with nurse\ Discussed with Dr. Kaur, seen on his behalf Marcie Summers Jun 02, 2017 13:49
[2017-06-02] MEDS: METOPROLOL TARTRATE 25 MG TAB PO SCH (15:10)
[2017-06-02] MEDS: ACETAMINOPHEN 325 MG TAB PO PRN (15:23)
[2017-06-02] MEDS: diphenhydrAMINE HCL 25 MG CAP PO PRN (15:23)
--- NOTE | 2017-06-02 15:48 | HHI.PR ---
Addendum to Inpatient Note Additional Information pt seen around 1540 full note to follow doing better R UE and L knee pain - better repeat BC remain neg R FA with resolved edema, erythea + palp cords, still tednder cont vanco IV 14 days from 1st neg BC no need to remove PORT at this point Marta Montilla MD Jun 02, 2017 15:48
--- NOTE | 2017-06-02 22:09 | HHI.IDPN ---
Subjective Subjective Remarks Delayed entry- pt seen around 1540 doing better R UE and L knee pain - better repeat BC remain neg remains afebrile Antibiotics vanco cefepime Allergies: Coded Allergies: No Known Allergies (Unverified , 05/10/17) Objective . Vital Signs Date Time Temp Pulse Resp B/P (MAP) Pulse Ox O2 Delivery O2 Flow Rate FiO2 06/02/17 20:48 55 06/02/17 20:00 97.1 54 18 109/57 (74) 98 06/02/17 16:52 97.6 58 18 112/63 97 06/02/17 15:00 98.0 82 20 111/58 (75) 95 06/02/17 11:30 97.6 56 20 118/57 (77) 96 06/02/17 08:31 56 06/02/17 07:50 96.9 54 20 106/56 (73) 96 06/02/17 04:00 96.7 63 18 111/59 (76) 97 06/02/17 00:00 96.1 67 18 107/60 (76) 98 06/02/17 06/02/17 06/03/17 15:00 23:00 07:00 Intake Total 2214 ml Output Total 1500 ml Balance 714 ml Intake Oral 720 ml IV Total 1059 ml Packed Cells 400 ml Blood Product IV Normal Saline Flush 35 ml Output Urine Total 1500 ml # Bowel Movements 0 . Laboratory Tests Test 06/01/17 05:59 06/02/17 04:56 White Blood Count 0.1 TH/MM3 0.3 TH/MM3 Red Blood Count 2.69 MIL/MM3 2.21 MIL/MM3 Hemoglobin 8.0 GM/DL 6.5 GM/DL Hematocrit 23.5 % 19.5 % Mean Corpuscular Volume 87.3 FL 88.0 FL Mean Corpuscular Hemoglobin 29.6 PG 29.2 PG Mean Corpuscular Hemoglobin Concent 33.9 % 33.2 % Red Cell Distribution Width 14.7 % 14.5 % Platelet Count 11 TH/MM3 23 TH/MM3 Mean Platelet Volume 8.0 FL 7.8 FL CBC Comment AUTO DIFF AUTO DIFF Differential Total Cells Counted 10 25 Lymphocytes % 60 % 96 % Monocytes % 30 % Neutrophils # (Manual) 0.0 TH/MM3 Differential Comment FINAL DIFF MANUAL FINAL DIFF MANUAL Plasma Cells 10 % 4 % Platelet Estimate RARE LOW Platelet Morphology Comment NORMAL NORMAL Ovalocytes 1+ Corrected White Blood Count 0.0 TH/MM3 Haptoglobin 379 MG/DL Laboratory Tests Test 06/01/17 05:59 06/02/17 04:56 Blood Urea Nitrogen 15 MG/DL 17 MG/DL Creatinine 0.79 MG/DL 0.73 MG/DL Random Glucose 145 MG/DL 104 MG/DL Total Protein 5.7 GM/DL 5.3 GM/DL Albumin 1.7 GM/DL 1.6 GM/DL Calcium Level 8.0 MG/DL 7.8 MG/DL Alkaline Phosphatase 84 U/L 67 U/L Aspartate Amino Transf (AST/SGOT) 9 U/L 23 U/L Alanine Aminotransferase (ALT/SGPT) 30 U/L 30 U/L Total Bilirubin 1.1 MG/DL 0.8 MG/DL Sodium Level 139 MEQ/L 138 MEQ/L Potassium Level 4.2 MEQ/L 5.3 MEQ/L Chloride Level 106 MEQ/L 110 MEQ/L Carbon Dioxide Level 25.7 MEQ/L 26.5 MEQ/L Anion Gap 7 MEQ/L 2 MEQ/L Estimat Glomerular Filtration Rate 97 ML/MIN 106 ML/MIN Magnesium Level 2.2 MG/DL Lactate Dehydrogenase 236 U/L Microbiology Date/Time Source Procedure Growth Status 05/31/17 16:21 Blood Peripheral Aerobic Blood Culture - Preliminary NO GROWTH IN 2 DAYS Resulted 05/31/17 16:21 Blood Peripheral Anaerobic Blood Culture - Preliminary NO GROWTH IN 2 DAYS Resulted 05/31/17 16:20 Blood Peripheral Aerobic Blood Culture - Preliminary NO GROWTH IN 2 DAYS Resulted 05/31/17 16:20 Blood Peripheral Anaerobic Blood Culture - Preliminary NO GROWTH IN 2 DAYS Resulted Imaging Last Impressions Chest X-Ray 06/01/17 06 Signed Impressions: Service Date/Time: Thursday, June 01, 2017 07:21 - CONCLUSION: Left basilar density.. Siddharth Diamond MD Bone Biopsy CT 06/01/17 06 Signed Impressions: Service Date/Time: Thursday, June 01, 2017 12:15 - CONCLUSION: 1. Uncomplicated CT guided bone marrow aspirate. 2. Uncomplicated CT guided bone marrow biopsy. Siddharth Diamond MD Head CT 05/31/17 [id number] Signed Impressions: Service Date/Time: May 19:34 - CONCLUSION: Negative noncontrast head CT. Man Ashton MD Upper Extremity Ultrasound 05/27/17 0000 Signed Impressions: Service Date/Time: Saturday, May 27, 2017 17:01 - CONCLUSION: 1. Acute thrombosis of the cephalic vein in the right forearm. 2. Otherwise, no sonographic evidence for right upper extremity DVT. Yunier Lange MD Shoulder X-Ray 05/25/17 0000 Signed Impressions: Service Date/Time: Thursday, May 25, 2017 14:18 - CONCLUSION: Negative for fracture. MRI of the knee had shown substantial leukemic infiltration. Jason Crawford MD FACR Knee X-Ray 05/25/17 0000 Signed Impressions: Service Date/Time: Thursday, May 25, 2017 14:21 - CONCLUSION: Negative for fracture. Moderate joint effusion. Jason Crawford MD FACR Knee MRI 05/25/17 0000 Signed Impressions: Service Date/Time: Thursday, May 25, 2017 13:35 - CONCLUSION: Joint effusion as described above intense enhancement. Considerations would include both inflammatory process as well as involvement with leukemia Marrow placement show intense enhancement consistent with leukemic infiltration. Jason Crawford MD FACR [facility] 05/15/17 0000 Signed Impressions: Service Date/Time: Monday, May 15, 2017 14:57 - CONCLUSION: Normal study. Ejection fraction 72%% Man Burden MD Catheter Placement X-Ray 05/15/17 0000 Signed Impressions: Service Date/Time: Monday, May 15, 2017 17:46 - CONCLUSION: Uncomplicated line placement as above. Man Burden MD Physical Exam CONSTITUTIONAL/GENERAL: This is an adequately nourished patient, in no apparent distress. TUBES/LINES/DRAINS: infusaport in place R chest, looks OK, not tender to palpation SKIN: No jaundice, petechial rash BLE . . Skin temperature appropriate. Not diaphoretic. EYES: Pupils equal and round and reactive. Extraocular motions intact. No scleral icterus. No injection or drainage. Fundi not examined. ENT: Hearing grossly normal. Nose without bleeding or purulent drainage. Throat without visible erythema, exudates, masses, or lesions. CARDIOVASCULAR: Regular rate and rhythm without murmurs, gallops, or rubs. No JVD. Peripheral pulses symmetric. RESPIRATORY/CHEST: Symmetric, unlabored respirations. Clear to auscultation. Breath sounds equal bilaterally. No wheezes, rales, or rhonchi. GASTROINTESTINAL: Abdomen soft, non-tender, nondistended. No hepato-splenomegaly , or palpable masses. No guarding. Bowel sounds present. GENITOURINARY: Without palpable bladder distension. MUSCULOSKELETAL: Extremities without clubbing, cyanosis, or edema. + L knee with decreasing effusion . NO redness ROM seems improved R forearm with resolved edema, erythea + palp cords, still tednder NEUROLOGICAL: fully awake and alert, clear sensorium Motor and sensory grossly within normal limits. Follows commands. Clear speech. Moves all extremities. PSYCHIATRIC: No obvious anxiety/depression. no apparent hallucinations or other psychotic thought process. Assessment & Plan Remarks MDS with leukemic tranformation sp chemo, neutropenic L knee effusion, doubt septic arthritis - also image dw radiology: not likely septic arthritis pain is persistent and not improving Staph epi bacteremia source is likely PORT sustained last clx are negative Acute thrombosis of the cephalic vein in the right forearm aw PIV New LLL infiltrate - cont vancomycin - cont cefepime - repeat blood clx - L knee arthrocenthesis if still concerns of septic arthritis arise cont vanco IV 14 days from 1st neg BC no need to remove PORT at this point monitor ANC Marta Montilla MD Jun 02, 2017 22:09
[2017-06-02] MEDS: ALPRAZolam 1 MG TAB PO SCH (22:31)
[2017-06-03] VITALS (9 sets, daily range): BP systolic 114–130; BP diastolic 55–69; PULSE 59–74; RESP 16–20; TEMP 96–99.3; O2SAT 95–99
[2017-06-03] MEDS: CEFEPIME INJ 2,000 MG in SODIUM CHLORIDE 0.9% INJ 100 ML IV SCH ×3 (00:37→17:31)
[2017-06-03] MEDS: ALPRAZolam 0.5 MG TAB PO PRN ×2 (06:51→23:01)
[2017-06-03] MEDS: traMADol HCL 50 MG TAB PO PRN (06:51)
[2017-06-03 07:05] LABS: HEMATOCRIT 21.6 % (39.0-51.0); LYMPH % 96.4 % (9.0-44.0); LYMPHOCYTE # 0.4 TH/MM3 (1.0-4.8); MEAN CELL VOLUME 88.3 FL (80.0-100.0); MEAN CORPUSCULAR HEMOGLOBIN 29.6 PG (27.0-34.0); MEAN CORPUSCULAR HGB CONC 33.5 % (32.0-36.0); MONO % 2.2 % (0.0-8.0); NEUT % 1.4 % (16.0-70.0); RED BLOOD COUNT 2.45 MIL/MM3 (4.50-5.90); RED CELL DISTRIBUTION WIDTH 14.6 % (11.6-17.2); WHITE BLOOD COUNT 0.4 TH/MM3 (4.0-11.0)
[2017-06-03 07:20] LABS: ALKALINE PHOSPHATASE 70 U/L (45-117); ALT (GPT) 48 U/L (12-78); ANION GAP 5 MEQ/L (5-15); AST (GOT) 23 U/L (15-37); BICARBONATE 26.7 MEQ/L (21.0-32.0); BLOOD UREA NITROGEN 15 MG/DL (7-18); CHLORIDE 109 MEQ/L (98-107); GLOMERULAR FILTRATION RATE 93 ML/MIN (>89); POTASSIUM 3.6 MEQ/L (3.5-5.1); SODIUM (NA) 141 MEQ/L (136-145); TOTAL BILIRUBIN ADULT 0.9 MG/DL (0.2-1.0)
[2017-06-03 07:23] LABS: APTT (PATIENT) 30.6 SEC (24.3-30.1); INTERNATIONAL NORMALIZED RATIO 1.2 RATIO; PROTHROMBIN TIME - PATIENT 13.9 SEC (9.8-11.6)
[2017-06-03 07:24] LABS: HEMO FLAGS AUTO DIFF
[2017-06-03 07:27] LABS: PLATELET COUNT 14 TH/MM3 (150-450)
[2017-06-03 08:14] LABS: POLYS (SEG NEUTROPHILS) 2 % (16-70); WBC DIFF SAMPLE 50
[2017-06-03 08:15] LABS: PLATELET ESTIMATE SMEAR RARE (NORMAL); PLATELET MORPHOLOGY NORMAL (NORMAL); SCAN/DIFF FINAL DIFF MANUAL
[2017-06-03] MEDS: FLUCONAZOLE 100 MG TAB PO SCH (08:42)
[2017-06-03] MEDS: ACYCLOVIR 200 MG CAP PO SCH ×2 (08:42→20:15)
[2017-06-03] MEDS: MEGESTROL ACETATE SUSP 400 MG/10 ML CUP PO SCH (08:42)
[2017-06-03] MEDS: PANTOPRAZOLE SOD 20 MG DELAYED RELEASE TAB PO SCH (08:42)
[2017-06-03] MEDS: CITALOPRAM HYDROBROMIDE 20 MG TAB PO SCH (08:42)
[2017-06-03] MEDS: NYSTAT/DIPHENHY/LIDO MOUTHWASH (Adult) 120ML SWISH-SWAL SCH ×4 (09:00→20:15)
--- NOTE | 2017-06-03 09:14 | PD.ONC.PN ---
Subjective Subjective Remarks "It's day, I'm not going to work with PT even if they come up" No bleeding Per RN, pt still remains confused at times. Objective Data Date Time Temp Pulse Resp B/P (MAP) Pulse Ox O2 Delivery O2 Flow Rate FiO2 06/03/17 04:00 96.1 59 17 123/60 (81) 97 06/03/17 00:00 96.0 71 17 114/55 (74) 98 06/02/17 20:48 55 06/02/17 20:00 97.1 54 18 109/57 (74) 98 06/02/17 16:52 97.6 58 18 112/63 97 06/02/17 15:00 98.0 82 20 111/58 (75) 95 06/02/17 11:30 97.6 56 20 118/57 (77) 96 06/03/17 06/03/17 06/03/17 07:00 15:00 23:00 Intake Total 535 ml Output Total 2470 ml Balance -1935 ml Result Diagram: 06/03/17 0604 06/03/17 0604 Laboratory Results Laboratory Tests Test 06/03/17 06:04 White Blood Count 0.4 TH/MM3 Red Blood Count 2.45 MIL/MM3 Hemoglobin 7.2 GM/DL Hematocrit 21.6 % Mean Corpuscular Volume 88.3 FL Mean Corpuscular Hemoglobin 29.6 PG Mean Corpuscular Hemoglobin Concent 33.5 % Red Cell Distribution Width 14.6 % Platelet Count 14 TH/MM3 Mean Platelet Volume 7.4 FL Neutrophils (%) (Auto) 1.4 % Lymphocytes (%) (Auto) 96.4 % Monocytes (%) (Auto) 2.2 % Eosinophils (%) (Auto) 0.0 % Basophils (%) (Auto) 0.0 % Neutrophils # (Auto) 0.0 TH/MM3 Lymphocytes # (Auto) 0.4 TH/MM3 Monocytes # (Auto) 0.0 TH/MM3 Eosinophils # (Auto) 0.0 TH/MM3 Basophils # (Auto) 0.0 TH/MM3 CBC Comment AUTO DIFF Differential Total Cells Counted 50 Neutrophils % (Manual) 2 % Lymphocytes % 98 % Neutrophils # (Manual) 0.0 TH/MM3 Differential Comment FINAL DIFF MANUAL Platelet Estimate RARE Platelet Morphology Comment NORMAL Red Cell Morphology Comment NORMAL Prothrombin Time 13.9 SEC Prothromb Time International Ratio 1.2 RATIO Activated Partial Thromboplast Time 30.6 SEC Blood Urea Nitrogen 15 MG/DL Creatinine 0.82 MG/DL Random Glucose 93 MG/DL Total Protein 5.2 GM/DL Albumin 1.7 GM/DL Calcium Level 8.0 MG/DL Alkaline Phosphatase 70 U/L Aspartate Amino Transf (AST/SGOT) 23 U/L Alanine Aminotransferase (ALT/SGPT) 48 U/L Total Bilirubin 0.9 MG/DL Sodium Level 141 MEQ/L Potassium Level 3.6 MEQ/L Chloride Level 109 MEQ/L Carbon Dioxide Level 26.7 MEQ/L Anion Gap 5 MEQ/L Estimat Glomerular Filtration Rate 93 ML/MIN Culture Results Microbiology Date/Time Source Procedure Growth Status 05/31/17 16:21 Blood Peripheral Aerobic Blood Culture - Preliminary NO GROWTH IN 2 DAYS Resulted 05/31/17 16:21 Blood Peripheral Anaerobic Blood Culture - Preliminary NO GROWTH IN 2 DAYS Resulted 05/31/17 16:20 Blood Peripheral Aerobic Blood Culture - Preliminary NO GROWTH IN 2 DAYS Resulted 05/31/17 16:20 Blood Peripheral Anaerobic Blood Culture - Preliminary NO GROWTH IN 2 DAYS Resulted Administered Medications Medications (Trade) Dose Ordered Sig/Ivelisse Route PRN Reason Start Time Stop Time Status Last Admin Dose Admin Acetaminophen (Tylenol) 650 mg Q4H PRN PO fever>100.4 05/15/17 13:00 05/31/17 21:08 Citalopram Hydrobromide (CeleXA) 20 mg DAILY PO 05/16/17 09:00 06/03/17 08:42 Pantoprazole Sodium (Protonix) 20 mg DAILY PO 05/16/17 09:00 06/03/17 08:42 Ondansetron HCl (Zofran Inj) 4 mg Q6HR PRN IV PUSH nausea 05/15/17 14:00 05/16/17 10:30 Sodium Chloride (NS Flush) 5 ml UNSCH PRN IVF SEE PROTOCOL 05/15/17 15:00 05/26/17 21:47 Trimethoprim/ Sulfamethoxazole (Bactrim Ds 800-160 Mg) 1 tab MoWeFr@09 PO 05/16/17 09:00 Future Hold 05/25/17 08:37 Fluconazole (Diflucan) 100 mg DAILY PO 05/16/17 09:00 06/03/17 08:42 Acyclovir (Zovirax) 400 mg BID PO 05/16/17 09:00 06/03/17 08:42 Multi-Ingredient Mouthwash/Gargle (Magic Mouthwash Adult Liq) 5 ml QID SWISH-SWAL 05/16/17 13:00 06/02/17 19:17 Megestrol Acetate (Megace Liq) 300 mg DAILY PO 05/16/17 14:00 06/03/17 08:42 Alprazolam (Xanax) 1 mg HS PO 05/20/17 21:00 06/09/17 09:59 06/02/17 22:31 Alprazolam (Xanax) 0.5 mg Q8H PRN PO anxiety 05/20/17 10:15 Future hold 06/03/17 06:51 Magnesium Hydroxide (Milk Of Magnesia Liq) 30 ml DAILY PRN PO CONSTIPATION 05/21/17 11:30 05/21/17 16:54 Vancomycin HCl 1500 mg/Sodium Chloride 515 ml @ 250 mls/hr Q12H IV 05/26/17 08:00 06/02/17 19:17 Cefepime HCl 2000 mg/Sodium Chloride 100 ml @ 200 mls/hr Q8H IV 05/31/17 16:00 06/03/17 08:41 Sodium Chloride 1,000 ml @ 84 mls/hr [id number] IV 06/01/17 15:00 06/02/17 20:35 Acetaminophen (Tylenol) 650 mg Q4H PRN PO SEE LABEL COMMENTS 06/02/17 08:15 06/02/17 15:23 Tramadol HCl (Ultram) 25 mg Q6H PRN PO PAIN 06/03/17 06:45 06/03/17 06:51 Objective Remarks GENERAL: Older male asleep on approach, resting quietly in no distress. SKIN: Warm and dry. HEAD: Normocephalic. EYES: No injection or drainage. NECK: Supple, trachea midline. CARDIOVASCULAR: Regular rate and rhythm RESPIRATORY: Breath sounds equal bilaterally. No accessory muscle use. GASTROINTESTINAL: Abdomen soft, non-tender, nondistended. EXTREMITIES: No cyanosis. Left knee remains swollen. Right forearm with redness /swelling. NEUROLOGICAL: Awake. Moving all extremities. Normal speech. Assessment/Plan Problem List: (1) AML (acute myeloblastic leukemia) ICD Codes: C92.00 - Acute myeloblastic leukemia, not having achieved remission Plan: 05/15/17: Admission. given Hydrea. [facility] performed Leukapheresis bringing WBC from >100K to 44K. 05/16/17: D1. SONIA-C + Maria Del [facility]. 1 unit pRBC 05/17/17: D2. no transfusion. tolerating chemo 05/18/17: D3. no transfusion. 05/19/17: D4. 1 unit platelets today. No evidence of tumor lysis. Pt finished idarubicin yesterday. Continue SONIA-C. 05/20/17 D5: 1 unit platelets, 2 units PRBC's today. Will add on xanax prn and 1mg xanax at HS scheduled. Continue chemo, continue to monitor blood counts. 05/21/17.D6: No transfusion, start lactulose for Bm, continue chemo 05/22/17:D7 05/23/17: D8: Pt to have final bag chemo hung tonight. Transfuse 1 unit irradiated platelets, 1 unit irradiated PRBC's today. 05/24/17: D9: We'll transfuse 1 unit irradiated packed red blood cells today for hemoglobin of 6.9 05/25/17: D10. transfuse 1 unit platelets. pain in left knee and right shoulder. swelling in left knee. 05/26/17: D11. 1 unit platelets, 1 unit pRBC. 05/27/17: D12. 1 unit pRBC. 05/28/17: D13. no transfusion 05/29/17: D14. 1 unit pRBC 05/30/17: D15. 1 unit platelets 05/31/17: D16. 1 unit pRBC 06/01/17: D17: 1 unit platelets. 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 --He presented with hyperleukocytosis and acute blast crises. --on Allopurinol 100mg PO BID for prophylaxis (2) Pancytopenia ICD Codes: D61.818 - Other pancytopenia Status: Acute Plan: --transfuse him for hemoglobin of 7 or less. -- irradiated/CMV-negative blood products. --transfuse for platelet count of 10 or less. --Diflucan 100mg daily, Acyclovir 400mg PO BID (3) Coagulopathy ICD Codes: D68.9 - Coagulation defect, unspecified Status: Acute Plan: --Check daily fibrinogen levels. --check his coags and LDH and haptoglobin [id number]. (4) Swelling of left knee joint ICD Codes: M25.462 - Effusion, left knee Plan: --diff dx includes but is not limited to gout vs pseudogout, vs. hemarthrosis vs. septic joint vs. arthritis. --MRI of knee shows joint effusion, unable to tap until counts recover --on abx. ID following. --ortho saw patient on 05/30 and recommends medical management, close observation and intervention if symptoms worsen (5) Sepsis ICD Codes: A41.9 - Sepsis, unspecified organism Plan: --ID following --BC on 05/28 showed no growth --+BC--GPC --on Vanco/Cefepime Assessment 72y/o male with acute myeloid leukemia with blast crisis. 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 Plan 1. No blood transfusion today 2. Continue supportive care 3. Monitor blood counts during recovery Attending Statement The exam, history, and the medical decision-making described in the above note were completed with the assistance of the mid-level provider. I reviewed and agree with the findings presented. I attest that I had a [id number] encounter with the patient on the same day, and personally performed and documented my assessment and findings in the medical record. Pt seen and examined. at bedside with a cough but wearing a mask. In good mood today, con't pancytopenia. No transfusion needed. No changes in room to keep pt near nursing station, seems acceptable to pt today. Dr. Kaur to return tomorrow. Problem Qualifiers (1) AML (acute myeloblastic leukemia): Qualified Codes: C92.00 - Acute myeloblastic leukemia, not having achieved remission Arin Castillo Jun 03, 2017 09:14 Lena Garcias MD Jun 03, 2017 14:49
[2017-06-03] MEDS: SODIUM CHLOR 0.9% 1000 ML INJ 1,000 ML IV SCH (10:39)
[2017-06-03] MEDS: VANCOMYCIN INJ 1,500 MG in SODIUM CHLORID 0.9% 500 ML INJ 500 ML IV SCH ×2 (10:42→20:12)
--- NOTE | 2017-06-03 14:56 | HHI.PR ---
Subjective Remarks Resting in the bed, color pale in room Still having periods of mild anxiety and confusion Temp 99.3 Objective Objective Results - Vital Signs Date Time Temp Pulse Resp B/P (MAP) Pulse Ox O2 Delivery O2 Flow Rate FiO2 06/03/17 09:00 99.3 66 18 125/58 (80) 95 06/03/17 04:00 96.1 59 17 123/60 (81) 97 06/03/17 00:00 96.0 71 17 114/55 (74) 98 06/02/17 20:48 55 06/02/17 20:00 97.1 54 18 109/57 (74) 98 06/02/17 16:52 97.6 58 18 112/63 97 06/02/17 15:00 98.0 82 20 111/58 (75) 95 I/O 06/02/17 06/02/17 06/02/17 06/03/17 06/03/17 06/03/17 07:00 15:00 23:00 07:00 15:00 23:00 Intake Total 1834 ml 2454 ml 535 ml Output Total 750 ml 1800 ml 2470 ml 800 ml Balance 1084 ml 654 ml -1935 ml -800 ml Intake Oral 240 ml 960 ml 480 ml IV Total 1594 ml 1059 ml 55 ml Packed Cells 400 ml Blood Product IV Normal Saline Flush 35 ml Output Urine Total 750 ml 1800 ml 2470 ml 800 ml # Bowel Movements 0 Result Diagram: 06/03/17 0604 06/03/17 0604 ROS General: Other (limited ROS review, patient still has some altered mental status) Neuro/MS: Other (left knee effusion pain, right arm thrombus pain) Physical Exam Physical Exam PHYSICAL EXAMINATION GENERAL: This is a male resting in the bed is presently on room He is awake, still having some mild confusion HEAD: Normocephalic Facial features appear symmetric. OROPHARYNGEAL: Oropharynx pale clear NECK: Supple. Trachea midline without deviation. CARDIAC: Irregular rhythm, regular rate, S1 and S2, EKG shows sinus rhythm with PACs, LUNGS: Clear to auscultation bilaterally. No audible wheeze or rhonchi ABDOMEN: Flat, Soft, nontender, no organomegaly or masses. Bowel sounds are heard in all four quadrants. No rebound. No guarding. EXTREMITIES: no edema. Pulses equal bilateral. NEUROLOGICAL: Patient mood and affect still shows some mild confusion and anxiety. Does appear to be more alert today SKIN:Warm and dry A/P Assessment and Plan Acute myeloblastic leukemia Pancytopenia continues and coagulopathy, monitoring fibrinogen levels Dr. Ibanez and oncology team appreciate input chemo completed on 05/23, status post bone marrow biopsy, currently 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 Anemia per labs , hemoglobin 7.2 Low-grade fever 99.3, platelet count 14, albumin 1.7 GERD [place] esophagus, asymptomatic Comanagement with Protonix 20 mg by mouth daily Anxiety and depression As well as Confusion. poss metabolic encephalopathy, still some mild persistence and anxiety today Pain management transition to tramadol Attempts to redirect some of patient's concerns, but appears to agitate easily. in room, has been updated and understands current medical dilemmas and process as well as plan of care. Patient refused physical therapy today, encouraged to get a fresh start tomorrow morning Left knee, with effusion, gradual improvement although patient feels that it is doing as well today and has reoccurred. Ice pack ordered, encourage mobility even in the bed much as he can tolerate Will need reevaluation once he recovers from current AML symptoms ID has been consulted, input appreciated, Cefepime and allopurinol Right arm DVT cephalic vein Right arm forearm as well as before meals, warm, painful, areas of firmness to touch, ice packs and elevated No SCDs or anticoagulation recommended at this time due to thrombocytopenia Protonix for GI prophylaxis PT refused, coverage patient to start tomorrow. He agreed Discussed with patient, supportive care, and his , time spent approximately 40 minutes with patient and his as well as review of record Discussed with nurse\ Discussed with Dr. Kaur, seen on his behalf Marcie Summers Jun 03, 2017 14:56
[2017-06-03] MEDS: ALPRAZolam 1 MG TAB PO SCH (20:15)
[2017-06-04] VITALS (13 sets, daily range): BP systolic 103–126; BP diastolic 58–68; PULSE 73–89; RESP 16–20; TEMP 96.4–99.3; O2SAT 93–98
[2017-06-04] MEDS: CEFEPIME INJ 2,000 MG in SODIUM CHLORIDE 0.9% INJ 100 ML IV SCH ×3 (00:21→18:06)
[2017-06-04] MEDS: SODIUM CHLOR 0.9% 1000 ML INJ 1,000 ML IV SCH ×2 (03:28→14:22)
[2017-06-04] MEDS: SODIUM CHLORIDE 0.9% FLUSH 10 ML FLUSH IVF PRN (03:28)
[2017-06-04] MEDS: traMADol HCL 50 MG TAB PO PRN ×2 (03:47→20:40)
[2017-06-04 04:30] LABS: HEMATOCRIT 23.8 % (39.0-51.0); MEAN CELL VOLUME 87.8 FL (80.0-100.0); MEAN CORPUSCULAR HEMOGLOBIN 29.4 PG (27.0-34.0); MEAN CORPUSCULAR HGB CONC 33.5 % (32.0-36.0); RED BLOOD COUNT 2.71 MIL/MM3 (4.50-5.90); RED CELL DISTRIBUTION WIDTH 14.8 % (11.6-17.2); WHITE BLOOD COUNT 0.3 TH/MM3 (4.0-11.0)
[2017-06-04 04:45] LABS: HEMO FLAGS AUTO DIFF
[2017-06-04 04:47] LABS: PLATELET COUNT 9 TH/MM3 (150-450)
[2017-06-04] MEDS ORDERED: HYDROmorphone HCL PF 1 MG/ML VIAL IV PUSH ONE (05:12)
[2017-06-04] MEDS: diphenhydrAMINE HCL 25 MG CAP PO PRN (05:30)
[2017-06-04] MEDS: ACETAMINOPHEN 325 MG TAB PO PRN (05:31)
[2017-06-04 07:35] LABS: POLYS (SEG NEUTROPHILS) 2 % (16-70); WBC DIFF SAMPLE 50
[2017-06-04 07:36] LABS: PLATELET ESTIMATE SMEAR RARE (NORMAL); PLATELET MORPHOLOGY NORMAL (NORMAL); SCAN/DIFF FINAL DIFF MANUAL
[2017-06-04] MEDS ORDERED: PHARMACY ORDERED LAB ONE (07:45)
[2017-06-04] MEDS: PANTOPRAZOLE SOD 20 MG DELAYED RELEASE TAB PO SCH (09:26)
[2017-06-04] MEDS: CITALOPRAM HYDROBROMIDE 20 MG TAB PO SCH (09:26)
[2017-06-04] MEDS: FLUCONAZOLE 100 MG TAB PO SCH (09:26)
[2017-06-04] MEDS: ACYCLOVIR 200 MG CAP PO SCH (09:27)
[2017-06-04] MEDS: NYSTAT/DIPHENHY/LIDO MOUTHWASH (Adult) 120ML SWISH-SWAL SCH ×4 (09:28→20:41)
[2017-06-04] MEDS: MEGESTROL ACETATE SUSP 400 MG/10 ML CUP PO SCH (09:28)
[2017-06-04] MEDS: VANCOMYCIN INJ 1,500 MG in SODIUM CHLORID 0.9% 500 ML INJ 500 ML IV SCH ×2 (10:58→20:41)
--- NOTE | 2017-06-04 12:30 | PD.ONC.PN ---
Subjective Subjective Remarks Afebrile overnight. Patient resting in bed. Anxious. Still having knee pain with movement. None at rest. Objective Data Date Time Temp Pulse Resp B/P (MAP) Pulse Ox O2 Delivery O2 Flow Rate FiO2 06/04/17 08:18 73 06/04/17 08:00 96.4 76 20 113/63 (80) 93 06/04/17 06:56 96.4 78 16 118/64 06/04/17 06:36 97.1 85 16 117/62 06/04/17 06:19 97.5 89 16 103/68 95 06/04/17 04:00 80 06/04/17 04:00 97.6 79 18 126/62 (83) 97 06/04/17 00:02 74 06/04/17 00:00 99.3 73 17 120/61 (80) 97 06/03/17 20:00 98.7 69 16 124/62 (82) 97 06/03/17 19:55 74 06/03/17 18:59 97.6 61 20 130/69 (89) 97 06/03/17 16:19 64 06/04/17 06/04/17 06/04/17 07:00 15:00 23:00 Intake Total 876 ml Output Total 1050 ml Balance -174 ml Result Diagram: 06/04/17 0345 06/03/17 0604 Laboratory Results Laboratory Tests Test 06/04/17 03:45 06/04/17 09:45 White Blood Count 0.3 TH/MM3 Red Blood Count 2.71 MIL/MM3 Hemoglobin 7.9 GM/DL Hematocrit 23.8 % Mean Corpuscular Volume 87.8 FL Mean Corpuscular Hemoglobin 29.4 PG Mean Corpuscular Hemoglobin Concent 33.5 % Red Cell Distribution Width 14.8 % Platelet Count 9 TH/MM3 Mean Platelet Volume 7.5 FL CBC Comment AUTO DIFF Differential Total Cells Counted 50 Neutrophils % (Manual) 2 % Lymphocytes % 98 % Neutrophils # (Manual) 0.0 TH/MM3 Differential Comment FINAL DIFF MANUAL Platelet Estimate RARE Platelet Morphology Comment NORMAL Red Cell Morphology Comment NORMAL Haptoglobin 393 MG/DL Lactate Dehydrogenase 96 U/L Vancomycin Level Trough 17.9 MCG/ML Administered Medications Medications (Trade) Dose Ordered Sig/Ivelisse Route PRN Reason Start Time Stop Time Status Last Admin Dose Admin Acetaminophen (Tylenol) 650 mg Q4H PRN PO fever>100.4 05/15/17 13:00 05/31/17 21:08 Citalopram Hydrobromide (CeleXA) 20 mg DAILY PO 05/16/17 09:00 06/04/17 09:26 Pantoprazole Sodium (Protonix) 20 mg DAILY PO 05/16/17 09:00 06/04/17 09:26 Ondansetron HCl (Zofran Inj) 4 mg Q6HR PRN IV PUSH nausea 05/15/17 14:00 05/16/17 10:30 Sodium Chloride (NS Flush) 5 ml UNSCH PRN IVF SEE PROTOCOL 05/15/17 15:00 05/26/17 21:47 Sodium Chloride (NS Flush) UNSCH PRN IVF SEE PROTOCOL 05/15/17 18:45 06/04/17 03:28 Trimethoprim/ Sulfamethoxazole (Bactrim Ds 800-160 Mg) 1 tab MoWeFr@09 PO 05/16/17 09:00 Future Hold 05/25/17 08:37 Fluconazole (Diflucan) 100 mg DAILY PO 05/16/17 09:00 06/04/17 09:26 Acyclovir (Zovirax) 400 mg BID PO 05/16/17 09:00 06/04/17 09:27 Multi-Ingredient Mouthwash/Gargle (Magic Mouthwash Adult Liq) 5 ml QID SWISH-SWAL 05/16/17 13:00 06/04/17 09:28 Megestrol Acetate (Megace Liq) 300 mg DAILY PO 05/16/17 14:00 06/04/17 09:28 Alprazolam (Xanax) 1 mg HS PO 05/20/17 21:00 06/09/17 09:59 06/03/17 20:15 Alprazolam (Xanax) 0.5 mg Q8H PRN PO anxiety 05/20/17 10:15 Future hold 06/03/17 23:01 Magnesium Hydroxide (Milk Of Magnesia Liq) 30 ml DAILY PRN PO CONSTIPATION 05/21/17 11:30 05/21/17 16:54 Vancomycin HCl 1500 mg/Sodium Chloride 515 ml @ 250 mls/hr Q12H IV 05/26/17 08:00 06/04/17 10:58 Cefepime HCl 2000 mg/Sodium Chloride 100 ml @ 200 mls/hr Q8H IV 05/31/17 16:00 06/04/17 09:30 Sodium Chloride 1,000 ml @ 84 mls/hr [id number] IV 06/01/17 15:00 06/04/17 03:28 Diphenhydramine HCl (Benadryl) 25 mg Q4H PRN PO SEE LABEL COMMENTS 06/02/17 08:15 06/04/17 05:30 Tramadol HCl (Ultram) 25 mg Q6H PRN PO PAIN 06/03/17 06:45 06/04/17 03:47 Objective Remarks GENERAL: Elderly male sitting upright in bed. appears fatigued. SKIN: Warm and dry. HEAD: Normocephalic. EYES: No injection or drainage. NECK: Supple, trachea midline. CARDIOVASCULAR: Regular rate and rhythm RESPIRATORY: Breath sounds equal bilaterally. No accessory muscle use. GASTROINTESTINAL: Abdomen soft, non-tender, nondistended. EXTREMITIES: No cyanosis. left knee remains swollen. right forearm with redness /swelling. NEUROLOGICAL: awake and alert. slow to answer questions. normal speech. Assessment/Plan Problem List: (1) AML (acute myeloblastic leukemia) ICD Codes: C92.00 - Acute myeloblastic leukemia, not having achieved remission Plan: 05/15/17: Admission. given Hydrea. [facility] performed Leukapheresis bringing WBC from >100K to 44K. 05/16/17: D1. SONIA-C + Maria Del Rosario. 1 unit pRBC 05/17/17: D2. no transfusion. tolerating chemo 05/18/17: D3. no transfusion. 05/19/17: D4. 1 unit platelets today. No evidence of tumor lysis. Pt finished idarubicin yesterday. Continue SONIA-C. 05/20/17 D5: 1 unit platelets, 2 units PRBC's today. Will add on xanax prn and 1mg xanax at HS scheduled. Continue chemo, continue to monitor blood counts. 05/21/17.D6: No transfusion, start lactulose for Bm, continue chemo 05/22/17:D7 05/23/17: D8: Pt to have final bag chemo hung tonight. Transfuse 1 unit irradiated platelets, 1 unit irradiated PRBC's today. 05/24/17: D9: We'll transfuse 1 unit irradiated packed red blood cells today for hemoglobin of 6.9 05/25/17: D10. transfuse 1 unit platelets. pain in left knee and right shoulder. swelling in left knee. 05/26/17: D11. 1 unit platelets, 1 unit pRBC. 05/27/17: D12. 1 unit pRBC. 05/28/17: D13. no transfusion 05/29/17: D14. 1 unit pRBC 05/30/17: D15. 1 unit platelets 05/31/17: D16. 1 unit pRBC 06/01/17: D17: 1 unit platelets. repeat bone marrow biopsy 06/02/17: D18 1 unit PRBC 06/03/17: D19 No transfusion 06/04/17: D20. 1 unit platelets. 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 --He presented with hyperleukocytosis and acute blast crises. --on Allopurinol 100mg PO BID for prophylaxis (2) Pancytopenia ICD Codes: D61.818 - Other pancytopenia Status: Acute Plan: --transfuse him for hemoglobin of 7 or less. -- irradiated/CMV-negative blood products. --transfuse for platelet count of 10 or less. --Diflucan 100mg daily, Acyclovir 400mg PO BID (3) Coagulopathy ICD Codes: D68.9 - Coagulation defect, unspecified Status: Acute Plan: --monitor coags, fibrinogen, LDH and haptoglobin (4) Swelling of left knee joint ICD Codes: M25.462 - Effusion, left knee Plan: --diff dx includes but is not limited to gout vs pseudogout, vs. hemarthrosis vs. septic joint vs. arthritis. --MRI of knee shows joint effusion, unable to tap until counts recover --on abx. ID following. --ortho saw patient on 05/30 and recommends medical management, close observation and intervention if symptoms worsen (5) Sepsis ICD Codes: A41.9 - Sepsis, unspecified organism Plan: --ID following --BC on 05/28 showed no growth --+BC--GPC --on Vanco/Cefepime Assessment 72y/o male with acute myeloid leukemia with blast crisis. 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 Plan 1. give 1 unit platelets 2. continue antibiotics 3. await bone marrow recovery Attending Statement The exam, history, and the medical decision-making described in the above note were completed with the assistance of the mid-level provider. I reviewed and agree with the findings presented. I attest that I had a [id number] encounter with the patient on the same day, and personally performed and documented my assessment and findings in the medical record. Knee pain less but still present not ambulating much speech sluggish/ some encephalopathy ? drug effects/no active infection/? central etiology check Ammonia levels/Uric acids. will broaden w/u if does not improved. will consider MRI brain with and without contrast. Spinal tap etc overall very weak does not like the room. says its too close to the nurse station and noisy stop cefepime/stop acyclovir no narcotics//okay with alprazolam and citalopram 1 unit of platelets today Bone marrow biopsy final results pending d/w with rn o/n events reviewed spoke with charge nurse-- will try to move patient to a quieter room Problem Qualifiers (1) AML (acute myeloblastic leukemia): Qualified Codes: C92.00 - Acute myeloblastic leukemia, not having achieved remission Oma Chavez Jun 04, 2017 12:30 Shar Ibanez MD Jun 04, 2017 22:09
--- NOTE | 2017-06-04 13:53 | HHI.PR ---
Subjective Remarks Resting in the bed, color pale Restless, anxious Had a bad night, unable to sleep, uncontrolled knee pain, anxiety in room Told his he was dreaming about people dying Struggling with his illness now, possible depression Hemoglobin 7.9, platelets 9, pancytopenia Objective Objective Results - Vital Signs Date Time Temp Pulse Resp B/P (MAP) Pulse Ox O2 Delivery O2 Flow Rate FiO2 06/04/17 12:52 96.5 80 20 119/64 (82) 98 06/04/17 08:18 73 06/04/17 08:00 96.4 76 20 113/63 (80) 93 06/04/17 06:56 96.4 78 16 118/64 06/04/17 06:36 97.1 85 16 117/62 06/04/17 06:19 97.5 89 16 103/68 95 06/04/17 04:00 80 06/04/17 04:00 97.6 79 18 126/62 (83) 97 06/04/17 00:02 74 06/04/17 00:00 99.3 73 17 120/61 (80) 97 06/03/17 20:00 98.7 69 16 124/62 (82) 97 06/03/17 19:55 74 06/03/17 18:59 97.6 61 20 130/69 (89) 97 06/03/17 16:19 64 I/O 06/03/17 06/03/17 06/03/17 06/04/17 06/04/17 06/04/17 07:00 15:00 23:00 07:00 15:00 23:00 Intake Total 535 ml 1520 ml 876 ml Output Total 2470 ml 800 ml 1250 ml 1050 ml Balance -1935 ml -800 ml 270 ml -174 ml Intake Oral 480 ml 1520 ml 480 ml IV Total 55 ml Platelets 376 ml Blood Product IV Normal Saline Flush 20 ml Output Urine Total 2470 ml 800 ml 1250 ml 1050 ml Result Diagram: 06/04/17 0345 06/03/17 0604 ROS General: Fatigue, Weakness, Other (10 point ROS done limited information except for symptoms,) GI: Other (decreased appetite decreased by mouth intake) Neuro/MS: Confusion (at times worse at night), Other (left knee edema right forearm thrombus/pain) Physical Exam Physical Exam PHYSICAL EXAMINATION GENERAL: This is a well-developed male Pale, mildly restless and anxious in the bed. Speech is slow, mildly slurred but understandable. Asking his to speak for him HEAD: Normocephalic, Facial features appear symmetric. Pale OROPHARYNGEAL: Oropharynx dry NECK: Supple. Trachea midline without deviation. CARDIAC: Regular rhythm, regular rate, S1 and S2 LUNGS: Mild diminished to auscultation bilaterally. Low to medium volumes ABDOMEN: Soft, nontender, no organomegaly or masses. Bowel sounds soft, No rebound. No guarding. EXTREMITIES: Right forearm mild edema and left knee edema NEUROLOGICAL: Patient mood and affect anxious, restless SKIN:Warm, pale, dry A/P Assessment and Plan Acute myeloblastic leukemia Pancytopenia continues and coagulopathy, monitoring fibrinogen levels Dr. Ibanez and oncology team appreciate input chemo completed on 05/23, status post first bone marrow biopsy, currently 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, second biopsy has been done pending results Anemia per labs GERD [place] esophagus, decreased appetite but no complaints of reflux pain Comanagement with Protonix 20 mg by mouth daily Anxiety and depression As well as Confusion continues seems to be worse at night. poss metabolic encephalopathy, anxiety today and continues to be restless, but drowsy possibly due to not sleeping and or medication given Supportive care to patient and , now telling his he is dreaming about people dying, possible depression in room, she called her multiple times last night, staff called at 08 30 and ask her if she could come up. still works, but has been here all morning attempting to support and settle patient back down. Spent approximately 30 minutes with patient, and and in room, listening supportive care. Left knee, with effusion, gradual improvement although patient feels that it is doing as well today and has reoccurred. Ice pack on left knee, right forearm as warranted. Discussed options of taking ice also known, but patient seems to think ice makes it feel better Will need reevaluation once he recovers from current AML symptoms ID has been consulted, input appreciated, Cefepime and allopurinol Right arm DVT cephalic vein Right arm forearm as well as before meals, warm, painful, areas of firmness to touch, ice packs as warranted and elevate No SCDs or anticoagulation recommended at this time due to thrombocytopenia Protonix for GI prophylaxis She initially said he would work with physical therapy today, encouraged to do so Discussed with patient, supportive care, and his , Discussed with nurse\ Discussed with Dr. Kaur, seen on his behalf Marcie Summers Jun 04, 2017 13:53
--- NOTE | 2017-06-04 13:57 | EKG ---
Date Performed: 06/03/2017 Time Performed: 12:46:29 PTAGE: 72 years EKG: Sinus rhythm WITH OCCASIONAL SUPRAVENTRICULAR PREMATURE COMPLEXES BORDERLINE LEFT AXIS DEVIATION RIGHT BUNDLE BRA NCH BLOCK MINIMAL VOLTAGE CRITERIA FOR LVH, CONSIDER NORMAL VARIANT ABNORMAL ECG Compared to prior tr acing no significant change PREVIOUS TRACING : 06/01/2017 08.10 DOCTOR: Hardy Brownlee Interpretating Date/Time 06/04/2017 13:55:39
[2017-06-04 16:16] LABS: ALT (GPT) 36 U/L (12-78); ANION GAP 7 MEQ/L (5-15); AST (GOT) 10 U/L (15-37); BICARBONATE 25.6 MEQ/L (21.0-32.0); BLOOD UREA NITROGEN 13 MG/DL (7-18); CHLORIDE 107 MEQ/L (98-107); GLOMERULAR FILTRATION RATE 89 ML/MIN (>89); POTASSIUM 3.6 MEQ/L (3.5-5.1); SODIUM (NA) 140 MEQ/L (136-145)
[2017-06-04 16:18] LABS: ALKALINE PHOSPHATASE 71 U/L (45-117); TOTAL BILIRUBIN ADULT 1.4 MG/DL (0.2-1.0)
[2017-06-04] MEDS: ALPRAZolam 1 MG TAB PO SCH (20:39)
[2017-06-05] VITALS (10 sets, daily range): BP systolic 112–126; BP diastolic 57–69; PULSE 70–86; RESP 16–18; TEMP 97–99.7; O2SAT 95–98
[2017-06-05] MEDS: SODIUM CHLOR 0.9% 1000 ML INJ 1,000 ML IV SCH ×2 (00:21→14:35)
[2017-06-05] MEDS: traMADol HCL 50 MG TAB PO PRN ×2 (03:14→21:06)
[2017-06-05] MEDS: SODIUM CHLORIDE 0.9% FLUSH 10 ML FLUSH IVF PRN (03:15)
[2017-06-05 03:34] LABS: HEMATOCRIT 21.1 % (39.0-51.0); HEMO FLAGS AUTO DIFF; MEAN CELL VOLUME 88.2 FL (80.0-100.0); MEAN CORPUSCULAR HEMOGLOBIN 30.1 PG (27.0-34.0); MEAN CORPUSCULAR HGB CONC 34.1 % (32.0-36.0); RED BLOOD COUNT 2.39 MIL/MM3 (4.50-5.90); RED CELL DISTRIBUTION WIDTH 14.5 % (11.6-17.2); WHITE BLOOD COUNT 0.3 TH/MM3 (4.0-11.0)
[2017-06-05 03:35] LABS: PLATELET COUNT 14 TH/MM3 (150-450)
[2017-06-05 03:49] LABS: ALT (GPT) 27 U/L (12-78); ANION GAP 7 MEQ/L (5-15); AST (GOT) 9 U/L (15-37); BICARBONATE 27.1 MEQ/L (21.0-32.0); BLOOD UREA NITROGEN 11 MG/DL (7-18); CHLORIDE 106 MEQ/L (98-107); GLOMERULAR FILTRATION RATE 97 ML/MIN (>89); POTASSIUM 3.4 MEQ/L (3.5-5.1); SODIUM (NA) 140 MEQ/L (136-145); URIC ACID 1.8 MG/DL (2.6-7.2)
[2017-06-05 03:51] LABS: ALKALINE PHOSPHATASE 68 U/L (45-117); TOTAL BILIRUBIN ADULT 1.3 MG/DL (0.2-1.0)
[2017-06-05 05:10] LABS: PLATELET ESTIMATE SMEAR LOW (NORMAL); PLATELET MORPHOLOGY NORMAL (NORMAL); POLYS (SEG NEUTROPHILS) 2 % (16-70); SCAN/DIFF FINAL DIFF MANUAL; WBC DIFF SAMPLE 99
[2017-06-05] MEDS ORDERED: PHARMACY ORDERED LAB ONE (07:45)
[2017-06-05] MEDS: VANCOMYCIN INJ 1,500 MG in SODIUM CHLORID 0.9% 500 ML INJ 500 ML IV SCH ×2 (09:12→21:05)
[2017-06-05] MEDS: MEGESTROL ACETATE SUSP 400 MG/10 ML CUP PO SCH (09:13)
[2017-06-05] MEDS: NYSTAT/DIPHENHY/LIDO MOUTHWASH (Adult) 120ML SWISH-SWAL SCH ×4 (09:13→21:00)
[2017-06-05] MEDS: FLUCONAZOLE 100 MG TAB PO SCH (09:13)
[2017-06-05] MEDS: PANTOPRAZOLE SOD 20 MG DELAYED RELEASE TAB PO SCH (09:13)
[2017-06-05] MEDS: CITALOPRAM HYDROBROMIDE 20 MG TAB PO SCH (09:13)
--- NOTE | 2017-06-05 09:19 | PD.ONC.PN ---
Subjective Subjective Remarks Tmax 99.7 overnight. Remains fatigued. Left knee pain only with movement. No bleeding. Objective Data Date Time Temp Pulse Resp B/P (MAP) Pulse Ox O2 Delivery O2 Flow Rate FiO2 06/05/17 08:00 97.7 80 16 112/57 (75) 95 06/05/17 04:03 84 06/05/17 03:06 99.7 70 16 126/66 (86) 96 06/05/17 00:05 86 06/05/17 00:00 99.2 85 18 123/69 (87) 97 06/04/17 20:03 76 06/04/17 20:00 98.9 75 18 122/61 (81) 95 06/04/17 16:00 74 06/04/17 16:00 98.8 75 20 118/58 (78) 97 06/04/17 12:52 96.5 80 20 119/64 (82) 98 06/04/17 12:00 82 06/05/17 06/05/17 06/05/17 07:00 15:00 23:00 Intake Total 1340 ml Output Total 1150 ml 275 ml Balance 190 ml -275 ml Result Diagram: 06/05/17 0320 06/05/17 0320 Laboratory Results Laboratory Tests Test 06/04/17 09:45 06/05/17 03:20 06/05/17 07:40 Blood Urea Nitrogen 13 MG/DL 11 MG/DL Creatinine 0.85 MG/DL 0.79 MG/DL Random Glucose 112 MG/DL 89 MG/DL Total Protein 5.9 GM/DL 5.8 GM/DL Albumin 1.8 GM/DL 1.7 GM/DL Calcium Level 8.2 MG/DL 7.9 MG/DL Alkaline Phosphatase 71 U/L 68 U/L Aspartate Amino Transf (AST/SGOT) 10 U/L 9 U/L Alanine Aminotransferase (ALT/SGPT) 36 U/L 27 U/L Total Bilirubin 1.4 MG/DL 1.3 MG/DL Sodium Level 140 MEQ/L 140 MEQ/L Potassium Level 3.6 MEQ/L 3.4 MEQ/L Chloride Level 107 MEQ/L 106 MEQ/L Carbon Dioxide Level 25.6 MEQ/L 27.1 MEQ/L Anion Gap 7 MEQ/L 7 MEQ/L Estimat Glomerular Filtration Rate 89 ML/MIN 97 ML/MIN Vancomycin Level Trough 17.9 MCG/ML 18.7 MCG/ML White Blood Count 0.3 TH/MM3 Red Blood Count 2.39 MIL/MM3 Hemoglobin 7.2 GM/DL Hematocrit 21.1 % Mean Corpuscular Volume 88.2 FL Mean Corpuscular Hemoglobin 30.1 PG Mean Corpuscular Hemoglobin Concent 34.1 % Red Cell Distribution Width 14.5 % Platelet Count 14 TH/MM3 Mean Platelet Volume 7.7 FL CBC Comment AUTO DIFF Differential Total Cells Counted 99 Neutrophils % (Manual) 2 % Lymphocytes % 98 % Neutrophils # (Manual) 0.0 TH/MM3 Differential Comment FINAL DIFF MANUAL Platelet Estimate LOW Platelet Morphology Comment NORMAL Uric Acid 1.8 MG/DL Ammonia 16 MCMOL/L Administered Medications Medications (Trade) Dose Ordered Sig/Ivelisse Route PRN Reason Start Time Stop Time Status Last Admin Dose Admin Acetaminophen (Tylenol) 650 mg Q4H PRN PO fever>100.4 05/15/17 13:00 05/31/17 21:08 Citalopram Hydrobromide (CeleXA) 20 mg DAILY PO 05/16/17 09:00 06/05/17 09:13 Pantoprazole Sodium (Protonix) 20 mg DAILY PO 05/16/17 09:00 06/05/17 09:13 Ondansetron HCl (Zofran Inj) 4 mg Q6HR PRN IV PUSH nausea 05/15/17 14:00 05/16/17 10:30 Sodium Chloride (NS Flush) 5 ml UNSCH PRN IVF SEE PROTOCOL 05/15/17 15:00 05/26/17 21:47 Sodium Chloride (NS Flush) UNSCH PRN IVF SEE PROTOCOL 05/15/17 18:45 06/05/17 03:15 Trimethoprim/ Sulfamethoxazole (Bactrim Ds 800-160 Mg) 1 tab MoWeFr@09 PO 05/16/17 09:00 Future Hold 05/25/17 08:37 Fluconazole (Diflucan) 100 mg DAILY PO 05/16/17 09:00 06/05/17 09:13 Multi-Ingredient Mouthwash/Gargle (Magic Mouthwash Adult Liq) 5 ml QID SWISH-SWAL 05/16/17 13:00 06/05/17 09:13 Megestrol Acetate (Megace Liq) 300 mg DAILY PO 05/16/17 14:00 06/05/17 09:13 Alprazolam (Xanax) 1 mg HS PO 05/20/17 21:00 06/09/17 09:59 06/04/17 20:39 Alprazolam (Xanax) 0.5 mg Q8H PRN PO anxiety 05/20/17 10:15 Future hold 06/03/17 23:01 Magnesium Hydroxide (Milk Of Leigh Ligodwin) 30 ml DAILY PRN PO CONSTIPATION 05/21/17 11:30 05/21/17 16:54 Vancomycin HCl 1500 mg/Sodium Chloride 515 ml @ 250 mls/hr Q12H IV 05/26/17 08:00 06/05/17 09:12 Sodium Chloride 1,000 ml @ 84 mls/hr [id number] IV 06/01/17 15:00 06/05/17 00:21 Diphenhydramine HCl (Benadryl) 25 mg Q4H PRN PO SEE LABEL COMMENTS 06/02/17 08:15 06/04/17 05:30 Tramadol HCl (Ultram) 25 mg Q6H PRN PO PAIN 06/03/17 06:45 06/05/17 03:14 Objective Remarks GENERAL: Elderly male lying in bed, sleeping on approach. SKIN: Warm and dry. HEAD: Normocephalic. EYES: No injection or drainage. NECK: Supple, trachea midline. CARDIOVASCULAR: Regular rate and rhythm RESPIRATORY: Breath sounds equal bilaterally. No accessory muscle use. GASTROINTESTINAL: Abdomen soft, non-tender, nondistended. EXTREMITIES: No cyanosis. left knee mild swelling. NEUROLOGICAL: awake and alert, normal speech. Assessment/Plan Problem List: (1) AML (acute myeloblastic leukemia) ICD Codes: C92.00 - Acute myeloblastic leukemia, not having achieved remission Plan: 05/15/17: Admission. given Hydrea. [facility] performed Leukapheresis bringing WBC from >100K to 44K. 05/16/17: D1. SONIA-C + Maria Del Rosario. 1 unit pRBC 05/17/17: D2. no transfusion. tolerating chemo 05/18/17: D3. no transfusion. 05/19/17: D4. 1 unit platelets today. No evidence of tumor lysis. Pt finished idarubicin yesterday. Continue SONIA-C. 05/20/17 D5: 1 unit platelets, 2 units PRBC's today. Will add on xanax prn and 1mg xanax at HS scheduled. Continue chemo, continue to monitor blood counts. 05/21/17.D6: No transfusion, start lactulose for Bm, continue chemo 05/22/17:D7 05/23/17: D8: Pt to have final bag chemo hung tonight. Transfuse 1 unit irradiated platelets, 1 unit irradiated PRBC's today. 05/24/17: D9: We'll transfuse 1 unit irradiated packed red blood cells today for hemoglobin of 6.9 05/25/17: D10. transfuse 1 unit platelets. pain in left knee and right shoulder. swelling in left knee. 05/26/17: D11. 1 unit platelets, 1 unit pRBC. 05/27/17: D12. 1 unit pRBC. 05/28/17: D13. no transfusion 05/29/17: D14. 1 unit pRBC 05/30/17: D15. 1 unit platelets 05/31/17: D16. 1 unit pRBC 06/01/17: D17: 1 unit platelets. repeat bone marrow biopsy 06/02/17: D18 1 unit PRBC 06/03/17: D19 No transfusion 06/04/17: D20. 1 unit platelets. waiting on pathology 06/05/17: D21. 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 --He presented with hyperleukocytosis and acute blast crises. --on Allopurinol 100mg PO BID for prophylaxis (2) Pancytopenia ICD Codes: D61.818 - Other pancytopenia Status: Acute Plan: --transfuse him for hemoglobin of 7 or less. -- irradiated/CMV-negative blood products. --transfuse for platelet count of 10 or less. --Diflucan 100mg daily, Acyclovir 400mg PO BID (3) Coagulopathy ICD Codes: D68.9 - Coagulation defect, unspecified Status: Acute Plan: --monitor coags, fibrinogen, LDH and haptoglobin (4) Swelling of left knee joint ICD Codes: M25.462 - Effusion, left knee Plan: --diff dx includes but is not limited to gout vs pseudogout, vs. hemarthrosis vs. septic joint vs. arthritis. --MRI of knee shows joint effusion, unable to tap until counts recover --on abx. ID following. --ortho saw patient on 05/30 and recommends medical management, close observation and intervention if symptoms worsen (5) Sepsis ICD Codes: A41.9 - Sepsis, unspecified organism Plan: --ID following --BC on 05/28 showed no growth --+BC--GPC --on Vanco Assessment 72y/o male with acute myeloid leukemia with blast crisis. 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 Plan 1. continue antibiotics 2. continue supportive care 3. await repeat bone marrow biopsy Attending Statement The exam, history, and the medical decision-making described in the above note were completed with the assistance of the mid-level provider. I reviewed and agree with the findings presented. I attest that I had a [id number] encounter with the patient on the same day, and personally performed and documented my assessment and findings in the medical record. Very minute population of blasts cells on flow cytometry. No blasts cell by morphology Cytogenetics pending Main issues-- deconditioning, poor oral intake and waxing and waning sensorium appears more alert today knee pain persistent remains pancytopenic awaiting count recovery ongoing blood products support d/w rn overnight events reviewed called patent's over the phone Problem Qualifiers (1) AML (acute myeloblastic leukemia): Qualified Codes: C92.00 - Acute myeloblastic leukemia, not having achieved remission Oma Chavez Jun 05, 2017 09:19 Shar Ibanez MD Jun 05, 2017 23:59
--- NOTE | 2017-06-05 09:46 | HHI.PR ---
Subjective Remarks awake, occ. disorientation trying to move left leg, was able to dangle at bsd was able to lift leg improved ROM to right arm no cp no sob remains restless at HS (Viola Sanon) Objective Objective Results - Vital Signs Date Time Temp Pulse Resp B/P (MAP) Pulse Ox O2 Delivery O2 Flow Rate FiO2 06/05/17 08:00 97.7 80 16 112/57 (75) 95 06/05/17 04:03 84 06/05/17 03:06 99.7 70 16 126/66 (86) 96 06/05/17 00:05 86 06/05/17 00:00 99.2 85 18 123/69 (87) 97 06/04/17 20:03 76 06/04/17 20:00 98.9 75 18 122/61 (81) 95 06/04/17 16:00 74 06/04/17 16:00 98.8 75 20 118/58 (78) 97 06/04/17 12:52 96.5 80 20 119/64 (82) 98 06/04/17 12:00 82 I/O 06/04/17 06/04/17 06/04/17 06/05/17 06/05/17 06/05/17 07:00 15:00 23:00 07:00 15:00 23:00 Intake Total 876 ml 560 ml 1340 ml Output Total 1050 ml 300 ml 1150 ml 275 ml Balance -174 ml -300 ml 560 ml 190 ml -275 ml Intake Oral 480 ml 240 ml IV Total 560 ml 1100 ml Platelets 376 ml Blood Product IV Normal Saline Flush 20 ml Output Urine Total 1050 ml 300 ml 1150 ml 275 ml # Voids 1 (Viola Sanon) Result Diagram: 06/05/17 0320 06/05/17 0320 Imaging Last Impressions Chest X-Ray 05/16/17 0700 Signed Impressions: Service Date/Time: Tuesday, May 16, 2017 07:41 - CONCLUSION: The lungs are clear. No evidence of pneumothorax. Ethan Sabillon MD [facility] 05/15/17 0000 Signed Impressions: Service Date/Time: Monday, May 15, 2017 14:57 - CONCLUSION: Normal study. Ejection fraction 72%% Man Burden MD Catheter Placement X-Ray 05/15/17 0000 Signed Impressions: Service Date/Time: Monday, May 15, 2017 17:46 - CONCLUSION: Uncomplicated line placement as above. Man Burden MD Other Results Laboratory Tests Test 06/05/17 03:20 06/05/17 07:40 White Blood Count 0.3 Red Blood Count 2.39 Hemoglobin 7.2 Hematocrit 21.1 Mean Corpuscular Volume 88.2 Mean Corpuscular Hemoglobin 30.1 Mean Corpuscular Hemoglobin Concent 34.1 Red Cell Distribution Width 14.5 Platelet Count 14 Mean Platelet Volume 7.7 CBC Comment AUTO DIFF Differential Total Cells Counted 99 Neutrophils % (Manual) 2 Lymphocytes % 98 Neutrophils # (Manual) 0.0 Differential Comment FINAL DIFF MANUAL Platelet Estimate LOW Platelet Morphology Comment NORMAL Blood Urea Nitrogen 11 Creatinine 0.79 Random Glucose 89 Total Protein 5.8 Albumin 1.7 Calcium Level 7.9 Uric Acid 1.8 Alkaline Phosphatase 68 Aspartate Amino Transf (AST/SGOT) 9 Alanine Aminotransferase (ALT/SGPT) 27 Total Bilirubin 1.3 Sodium Level 140 Potassium Level 3.4 Chloride Level 106 Carbon Dioxide Level 27.1 Anion Gap 7 Estimat Glomerular Filtration Rate 97 Ammonia 16 Vancomycin Level Trough 18.7 Date/Time Source Procedure Growth Status 05/31/17 16:21 Blood Peripheral Aerobic Blood Culture - Preliminary NO GROWTH IN 4 DAYS Resulted 05/31/17 16:21 Blood Peripheral Anaerobic Blood Culture - Preliminary NO GROWTH IN 4 DAYS Resulted (Viola Sanon) ROS General: Other (12 point ros unreliable. Positive for right shoulder pain, left knee pain, fatigue, confusion ) (Viola Sanon) Physical Exam Physical Exam GENERAL: This is a well-nourished, well-developed patient, in no apparent distress. SKIN: Petechial rash noted to bilateral pretibial areas. Skin pale and cool to touch HEAD: Atraumatic. Normocephalic. No temporal or scalp tenderness. EYES: Pupils equal round and reactive. Extraocular motions intact. No scleral icterus. No injection or drainage. ENT: Nose without bleeding, purulent drainage or septal hematoma. Throat without erythema, tonsillar hypertrophy or exudate. Uvula midline. Airway patent. NECK: Trachea midline. No JVD or lymphadenopathy. Supple, nontender, no meningeal signs. CARDIOVASCULAR: Regular rate and rhythm without murmurs, gallops, or rubs. RESPIRATORY: Clear to auscultation. Breath sounds equal bilaterally. No wheezes , rales, or rhonchi. Port-A-Cath noted to left chest wall area. GASTROINTESTINAL: Abdomen soft, non-tender, nondistended. No hepato-splenomegaly , or palpable masses. No guarding. MUSCULOSKELETAL: Left knee is less swollen. Painful with flexion. Right shoulder tender, no erythema noted. No deformity. Able to bring up right arm up to eye level,very painful with abduction. NEUROLOGICAL: Awake, disoriented. No focal deficit. (Viola Sanon COLLEGE SPECIALIST) Urinary Catheter: No (Viola SanonP) Vascular Central Line Catheter: No (Viola Sanon COLLEGE SPECIALIST) A/P Diagnosis: (1) AML (acute myeloblastic leukemia) ICD Codes: C92.00 - Acute myeloblastic leukemia, not having achieved remission (2) Pancytopenia ICD Codes: D61.818 - Other pancytopenia Status: Acute (3) Coagulopathy ICD Codes: D68.9 - Coagulation defect, unspecified Status: Acute (4) Anxiety and depression ICD Codes: F41.8 - Other specified anxiety disorders Status: Chronic (5) Familial tremor ICD Codes: G25.0 - Essential tremor Status: Chronic Assessment and Plan 72-year-old white male with 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 Admitted for chemotherapy induction. Acute myeloblastic leukemia Pancytopenia -Dr. Ibanez managing -Continue with Bactrim Levaquin Diflucan and acyclovir -completed chemo 05/23 -Continue with blood product replacement is needed -Monitor for bone marrow recovery -CT guided bone marrow bx 06/01, results pending Coagulopathy -Monitor for bleeding - fibrinogen levels per oncology, elevated. GERD [place] esophagus -Continue Protonix 20 mg by mouth daily Anxiety and depression -Continue with Celexa 20 mg by mouth daily -continue Xanax PRN Confused, likely metabolic encephalopathy -CT head no acute findings -limit narcotics -ammonia level ok -continue to reorient frequently, inc. mobility Familial tremor, stable -continue with medical management Left knee and right shoulder pain, ? septic joint, effusion -MRI left knee noted, joint effusion, unable to have arthrocentesis due to low platelets. -ID has been consulted, input appreciated -Continue with empiric antibiotic, Cefepime added per ID -Continue with Allopurinol 100 mg po bid -Continue [place] PRN -Appreciate orthopedic input, doesn't believe septic joint. At this time patient is high risk for aspiration. Recommends to continue with medical management. Positive blood cultures, ? Bacteremia, left knee effusion. -Appreciate ID input -Continue with empiric antibiotics-Vanco and Cefepime -Blood and line cultures positive for Staph epi -blood cultures repeated, so far negative. Continue to follow -per ID, no need to remove port Right arm swelling, positive for DVT cephalic vein -Elevate arm as needed -Warm compresses -no anticoagulation recommended at this time due to low platelets. -right arm swelling improved, less erythema. No SCDs or anticoagulation recommended at this time due to thrombocytopenia Continue Protonix for GI prophylaxis PT and OT to increase mobility Condition guarded bone marrow recovery in progress, D/W RN D/W pt D/W Dr. Kaur Patient was seen by myself and Dr. Kaur, this note is written on his behalf (Viola Sanon) Assessment and Plan seen, examined by myself, Dr Kaur, today Right upper extremity looks better Complaining of pain and swelling in the left knee Bone marrow biopsy report noted Discussed with patient Discussed with mid level provider The exam, history, and the medical decision-making described in the above note were completed with the assistance of the mid-level provider. I reviewed the findings presented. I attest that I had a [id number] encounter with the patient on the same day, and personally performed and documented my assessment and findings in the medical record. (Jamil Kaur MD) Problem Qualifiers (1) AML (acute myeloblastic leukemia): Qualified Codes: C92.00 - Acute myeloblastic leukemia, not having achieved remission Viola Sanon Jun 05, 2017 09:46 Jamil Kaur MD Jun 05, 2017 13:02
[2017-06-05] MEDS ORDERED: POTASSIUM CHLORIDE 25 MEQ EFFERVESCENT TAB PO ONE (17:30)
[2017-06-05] MEDS: ALPRAZolam 1 MG TAB PO SCH (21:06)
[2017-06-05] MEDS: MAGNESIUM HYDROXIDE SUSP 30 ML CUP PO PRN (21:13)
[2017-06-06] VITALS (15 sets, daily range): BP systolic 106–137; BP diastolic 57–88; PULSE 69–89; RESP 16–20; TEMP 96.7–100.6; O2SAT 90–96
[2017-06-06] MEDS: ACETAMINOPHEN 325 MG TAB PO PRN ×2 (01:28→06:06)
[2017-06-06] MEDS: CEFEPIME INJ 2,000 MG in SODIUM CHLORIDE 0.9% INJ 100 ML IV SCH ×3 (01:29→18:25)
[2017-06-06 01:33] LABS: BLOOD, URINE TRACE (NEG); GLUCOSE,URINE NEG (NEG); KETONE, URINE NEG (NEG); NITRITE,URINE NEG (NEG); SQUAMOUS EPITHELIAL CELL URINE <1 /hpf (0-5); URINE COLOR YELLOW (YELLW/STRAW)
[2017-06-06 01:37] LABS: COMMENT (UR) CULT NOT INDICATED; CULTURE IF INDICATED CULT NOT INDICATED
--- NOTE | 2017-06-06 02:11 | RADRPT ---
EXAM DATE/TIME: 06/06/2017 01:25 [facility] COMPARISON: CHEST SINGLE AP, June 01, 2017, 7:21. INDICATIONS : Fever. MEDICAL HISTORY : Hiatal hernia. Arthritis. Leukemia, Herniated discs. Blood dyscrasias SURGICAL HISTORY : Cholecystectomy. Lithotripsy. Chemotherapy, Infusaport ENCOUNTER: Subsequent ACUITY: 1 day PAIN SCORE: 6/10 LOCATION: Bilateral chest FINDINGS: A single view of the chest demonstrates right [id number]-[id number] in superior vena cava. Minimal basilar at electasis. No significant effusion. Cardiomegaly. No pneumothorax. CONCLUSION: 1. Mild basilar atelectasis. Jbrpkw-y-[id number] in superior vena cava. Shravan Saldaña MD on June 06, 2017 at 2:07 Board Certified Radiologist. This report was verified electronically.
[2017-06-06] MEDS: SODIUM CHLORIDE 0.9% FLUSH 10 ML FLUSH IVF PRN (03:22)
[2017-06-06] MEDS: SODIUM CHLOR 0.9% 1000 ML INJ 1,000 ML IV SCH ×2 (03:28→22:23)
[2017-06-06] MEDS: traMADol HCL 50 MG TAB PO PRN (03:37)
[2017-06-06 04:20] LABS: MEAN CORPUSCULAR HEMOGLOBIN 29.4 PG (27.0-34.0); MEAN CORPUSCULAR HGB CONC 33.5 % (32.0-36.0); RED BLOOD COUNT 2.14 MIL/MM3 (4.50-5.90); RED CELL DISTRIBUTION WIDTH 13.9 % (11.6-17.2); WHITE BLOOD COUNT 0.2 TH/MM3 (4.0-11.0)
[2017-06-06 04:32] LABS: HEMO FLAGS AUTO DIFF
[2017-06-06 04:34] LABS: HEMATOCRIT 18.8 % (39.0-51.0); PLATELET COUNT 5 TH/MM3 (150-450)
[2017-06-06 04:45] LABS: ANION GAP 7 MEQ/L (5-15); AST (GOT) 10 U/L (15-37); BICARBONATE 26.2 MEQ/L (21.0-32.0); BLOOD UREA NITROGEN 9 MG/DL (7-18); CHLORIDE 107 MEQ/L (98-107); GLOMERULAR FILTRATION RATE 101 ML/MIN (>89); LDH SERUM 81 U/L (87-241); POTASSIUM 3.7 MEQ/L (3.5-5.1); SODIUM (NA) 140 MEQ/L (136-145)
[2017-06-06 04:49] LABS: ALKALINE PHOSPHATASE 62 U/L (45-117); ALT (GPT) 30 U/L (12-78); TOTAL BILIRUBIN ADULT 1.2 MG/DL (0.2-1.0)
[2017-06-06] MEDS: diphenhydrAMINE HCL 25 MG CAP PO PRN (06:03)
[2017-06-06 08:10] LABS: WBC DIFF SAMPLE 10
[2017-06-06 08:11] LABS: PLATELET ESTIMATE SMEAR RARE (NORMAL); PLATELET MORPHOLOGY NORMAL (NORMAL); SCAN/DIFF FINAL DIFF MANUAL
--- NOTE | 2017-06-06 09:31 | PD.ORT.PN ---
Subjective Subjective Remarks Resting in bed. States that pain in knee has continued to improve slightly Objective Vitals Vital Signs Date Time Temp Pulse Resp B/P (MAP) Pulse Ox O2 Delivery O2 Flow Rate FiO2 06/06/17 08:11 97.7 77 18 106/58 95 06/06/17 08:00 97.2 69 20 107/57 (74) 90 06/06/17 07:45 96.7 74 18 113/58 96 06/06/17 07:19 97.9 75 16 109/59 94 06/06/17 06:47 98.4 84 16 107/57 95 06/06/17 04:06 77 06/06/17 03:14 97.4 72 16 112/59 (76) 96 06/06/17 00:30 100.6 89 17 123/88 (100) 95 06/06/17 00:08 83 06/05/17 20:09 73 06/05/17 20:00 99.4 77 18 116/62 (80) 96 06/05/17 16:00 97.0 70 18 124/60 (81) 98 06/05/17 12:00 97.3 77 16 118/60 (79) 96 I/O 06/05/17 06/05/17 06/05/17 06/06/17 06/06/17 06/06/17 07:00 15:00 23:00 07:00 15:00 23:00 Intake Total 1340 ml 1000 ml 720 ml 1930 ml 302 ml Output Total 1150 ml 525 ml 1150 ml 675 ml Balance 190 ml 475 ml -430 ml 1255 ml 302 ml Intake Oral 240 ml 720 ml 260 ml IV Total 1100 ml 1000 ml 1670 ml Platelets 282 ml Blood Product IV Normal Saline Flush 20 ml Output Urine Total 1150 ml 525 ml 1150 ml 675 ml # Voids 1 1 # Bowel Movements 0 Result Diagram: 06/06/175 06/06/17324 Imaging Last 24 hours Impressions Chest X-Ray 06/06/17 0049 Signed Impressions: Service Date/Time: Tuesday, June 06, 2017 01:25 - CONCLUSION: 1. Mild basilar atelectasis. Cswfny-k-[id number] in superior vena cava. Shravan Saldaña MD Objective Remarks Left lower extremity: No pain with hip range of motion. Moderate swelling of knee with range of motion minimal. He is 5 short of extension and is only able to flex approximately 20. Mild tenderness to palpation surrounding the knee. There is no erythema or drainage. Distally he has intact sensation good capillary refills. Assessment & Plan Assessment and Plan Left knee joint effusion with osteoarthritis Unable to aspirate knee due to low white blood cell count. Still evaluating for arthritis versus septic arthritis Weightbearing as tolerated left lower extremity and for physical therapy to work on range of motion of knee Dhruv Osorio Jr. Jun 06, 2017 09:31
[2017-06-06] MEDS: NYSTAT/DIPHENHY/LIDO MOUTHWASH (Adult) 120ML SWISH-SWAL SCH ×4 (09:37→22:25)
[2017-06-06] MEDS: VANCOMYCIN INJ 1,500 MG in SODIUM CHLORID 0.9% 500 ML INJ 500 ML IV SCH ×2 (09:37→22:24)
[2017-06-06] MEDS: CITALOPRAM HYDROBROMIDE 20 MG TAB PO SCH (09:38)
[2017-06-06] MEDS: MEGESTROL ACETATE SUSP 400 MG/10 ML CUP PO SCH (09:38)
[2017-06-06] MEDS: PANTOPRAZOLE SOD 20 MG DELAYED RELEASE TAB PO SCH (09:38)
[2017-06-06] MEDS: FLUCONAZOLE 100 MG TAB PO SCH (09:38)
[2017-06-06] MEDS ORDERED: ALPRAZolam 0.25 MG TAB PO PRN (10:15)
--- NOTE | 2017-06-06 10:23 | PD.ONC.PN ---
Subjective Subjective Remarks Tmax 100.6 overnight Pt reports that his knee pain is overall improved Currently has PRBC's infusing Objective Data Date Time Temp Pulse Resp B/P (MAP) Pulse Ox O2 Delivery O2 Flow Rate FiO2 06/06/17 09:38 98.0 69 18 120/61 95 06/06/17 08:11 97.7 77 18 106/58 95 06/06/17 08:00 97.2 69 20 107/57 (74) 90 06/06/17 07:45 96.7 74 18 113/58 96 06/06/17 07:19 97.9 75 16 109/59 94 06/06/17 06:47 98.4 84 16 107/57 95 06/06/17 04:06 77 06/06/17 03:14 97.4 72 16 112/59 (76) 96 06/06/17 00:30 100.6 89 17 123/88 (100) 95 06/06/17 00:08 83 06/05/17 20:09 73 06/05/17 20:00 99.4 77 18 116/62 (80) 96 06/05/17 16:00 97.0 70 18 124/60 (81) 98 06/05/17 12:00 97.3 77 16 118/60 (79) 96 06/06/17 06/06/17 06/06/17 07:00 15:00 23:00 Intake Total 1930 ml 702 ml Output Total 675 ml Balance 1255 ml 702 ml Result Diagram: 06/06/17 0325 06/06/17 0325 Laboratory Results Laboratory Tests Test 06/06/17 01:02 06/06/17 03:25 Urine Color YELLOW Urine Turbidity CLEAR Urine pH 7.0 Urine Specific [place] 1.008 Urine Protein TRACE mg/dL Urine Glucose (UA) NEG mg/dL Urine Ketones NEG mg/dL Urine Occult Blood TRACE Urine Nitrite NEG Urine Bilirubin NEG Urine Urobilinogen 2.0 MG/DL Urine Leukocyte Esterase NEG Urine RBC 2 /hpf Urine WBC 1 /hpf Urine Squamous Epithelial Cells <1 /hpf Microscopic Urinalysis Comment CULT NOT INDICATED White Blood Count 0.2 TH/MM3 Red Blood Count 2.14 MIL/MM3 Hemoglobin 6.3 GM/DL Hematocrit 18.8 % Mean Corpuscular Volume 88.0 FL Mean Corpuscular Hemoglobin 29.4 PG Mean Corpuscular Hemoglobin Concent 33.5 % Red Cell Distribution Width 13.9 % Platelet Count 5 TH/MM3 Mean Platelet Volume 7.9 FL CBC Comment AUTO DIFF Differential Total Cells Counted 10 Lymphocytes % 100 % Neutrophils # (Manual) 0.0 TH/MM3 Differential Comment FINAL DIFF MANUAL Platelet Estimate RARE Platelet Morphology Comment NORMAL Blood Urea Nitrogen 9 MG/DL Creatinine 0.76 MG/DL Random Glucose 93 MG/DL Total Protein 5.5 GM/DL Albumin 1.5 GM/DL Calcium Level 7.9 MG/DL Alkaline Phosphatase 62 U/L Aspartate Amino Transf (AST/SGOT) 10 U/L Alanine Aminotransferase (ALT/SGPT) 30 U/L Lactate Dehydrogenase 81 U/L Total Bilirubin 1.2 MG/DL Sodium Level 140 MEQ/L Potassium Level 3.7 MEQ/L Chloride Level 107 MEQ/L Carbon Dioxide Level 26.2 MEQ/L Anion Gap 7 MEQ/L Estimat Glomerular Filtration Rate 101 ML/MIN Culture Results Microbiology Date/Time Source Procedure Growth Status 06/06/17 01:10 Blood Peripheral Aerobic Blood Culture Pending Received 06/06/17 01:10 Blood Peripheral Anaerobic Blood Culture Pending Received 06/06/17 01:05 Blood Peripheral Aerobic Blood Culture Pending Received 06/06/17 01:05 Blood Peripheral Anaerobic Blood Culture Pending Received Imaging Studies Last 24 hours Impressions Chest X-Ray 06/06/17 0049 Signed Impressions: Service Date/Time: Tuesday, June 06, 2017 01:25 - CONCLUSION: 1. Mild basilar atelectasis. Vwtqzy-[id number]-Creu in superior vena cava. Shravan Saldaña MD Administered Medications Medications (Trade) Dose Ordered Sig/Ivelisse Route PRN Reason Start Time Stop Time Status Last Admin Dose Admin Acetaminophen (Tylenol) 650 mg Q4H PRN PO fever>100.4 05/15/17 13:00 06/06/17 06:06 Citalopram Hydrobromide (CeleXA) 20 mg DAILY PO 05/16/17 09:00 06/06/17 09:38 Pantoprazole Sodium (Protonix) 20 mg DAILY PO 05/16/17 09:00 06/06/17 09:38 Ondansetron HCl (Zofran Inj) 4 mg Q6HR PRN IV PUSH nausea 05/15/17 14:00 05/16/17 10:30 Sodium Chloride (NS Flush) 5 ml UNSCH PRN IVF SEE PROTOCOL 05/15/17 15:00 05/26/17 21:47 Sodium Chloride (NS Flush) UNSCH PRN IVF SEE PROTOCOL 05/15/17 18:45 06/06/17 03:22 Trimethoprim/ Sulfamethoxazole (Bactrim Ds 800-160 Mg) 1 tab MoWeFr@09 PO 05/16/17 09:00 Future Hold 05/25/17 08:37 Fluconazole (Diflucan) 100 mg DAILY PO 05/16/17 09:00 06/06/17 09:38 Multi-Ingredient Mouthwash/Gargle (Magic Mouthwash Adult Liq) 5 ml QID SWISH-SWAL 05/16/17 13:00 06/06/17 09:37 Megestrol Acetate (Megace Liq) 300 mg DAILY PO 05/16/17 14:00 06/06/17 09:38 Alprazolam (Xanax) 1 mg HS PO 05/20/17 21:00 06/09/17 09:59 06/05/17 21:06 Alprazolam (Xanax) 0.5 mg Q8H PRN PO anxiety 05/20/17 10:15 Future hold 06/03/17 23:01 Magnesium Hydroxide (Milk Of Magnesia Liq) 30 ml DAILY PRN PO CONSTIPATION 05/21/17 11:30 06/05/17 21:13 Vancomycin HCl 1500 mg/Sodium Chloride 515 ml @ 250 mls/hr Q12H IV 05/26/17 08:00 06/06/17 09:37 Sodium Chloride 1,000 ml @ 84 mls/hr [id number] IV 06/01/17 15:00 06/06/17 03:28 Tramadol HCl (Ultram) 25 mg Q6H PRN PO PAIN 06/03/17 06:45 06/06/17 03:37 Cefepime HCl 2000 mg/Sodium Chloride 100 ml @ 200 mls/hr Q8H IV 06/06/17 02:00 06/06/17 01:29 Objective Remarks GENERAL: Elderly male lying in bed, sleeping on approach. SKIN: Warm and dry. HEAD: Normocephalic. EYES: No injection or drainage. NECK: Supple, trachea midline. CARDIOVASCULAR: Regular rate and rhythm RESPIRATORY: Breath sounds equal bilaterally. No accessory muscle use. GASTROINTESTINAL: Abdomen soft, non-tender, nondistended. EXTREMITIES: No cyanosis. Left knee mild swelling. NEUROLOGICAL: Normal speech. Moving all extremities. No obvious focal deficit. Assessment/Plan Problem List: (1) AML (acute myeloblastic leukemia) ICD Codes: C92.00 - Acute myeloblastic leukemia, not having achieved remission Plan: 05/15/17: Admission. given Hydrea. [facility] performed Leukapheresis bringing WBC from >100K to 44K. 05/16/17: D1. SONIA-C + [place]. 1 unit pRBC 05/17/17: D2. no transfusion. tolerating chemo 05/18/17: D3. no transfusion. 05/19/17: D4. 1 unit platelets today. No evidence of tumor lysis. Pt finished idarubicin yesterday. Continue SONIA-C. 05/20/17 D5: 1 unit platelets, 2 units PRBC's today. Will add on xanax prn and 1mg xanax at HS scheduled. Continue chemo, continue to monitor blood counts. 05/21/17.D6: No transfusion, start lactulose for Bm, continue chemo 05/22/17:D7 05/23/17: D8: Pt to have final bag chemo hung tonight. Transfuse 1 unit irradiated platelets, 1 unit irradiated PRBC's today. 05/24/17: D9: We'll transfuse 1 unit irradiated packed red blood cells today for hemoglobin of 6.9 05/25/17: D10. transfuse 1 unit platelets. pain in left knee and right shoulder. swelling in left knee. 05/26/17: D11. 1 unit platelets, 1 unit pRBC. 05/27/17: D12. 1 unit pRBC. 05/28/17: D13. no transfusion 05/29/17: D14. 1 unit pRBC 05/30/17: D15. 1 unit platelets 05/31/17: D16. 1 unit pRBC 06/01/17: D17: 1 unit platelets. repeat bone marrow biopsy 06/02/17: D18 1 unit PRBC 06/03/17: D19 No transfusion 06/04/17: D20. 1 unit platelets. waiting on pathology 06/05/17: D21. no events 06/06/17: D22. Transfuse 1 unit PRBC's, 1 unit platelets. 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 --He presented with hyperleukocytosis and acute blast crises. --on Allopurinol 100mg PO BID for prophylaxis (2) Pancytopenia ICD Codes: D61.818 - Other pancytopenia Status: Acute Plan: --transfuse him for hemoglobin of 7 or less. -- irradiated/CMV-negative blood products. --transfuse for platelet count of 10 or less. --Diflucan 100mg daily, Acyclovir 400mg PO BID (3) Coagulopathy ICD Codes: D68.9 - Coagulation defect, unspecified Status: Acute Plan: --monitor coags, fibrinogen, LDH and haptoglobin (4) Swelling of left knee joint ICD Codes: M25.462 - Effusion, left knee Plan: --diff dx includes but is not limited to gout vs pseudogout, vs. hemarthrosis vs. septic joint vs. arthritis. --MRI of knee shows joint effusion, unable to tap until counts recover --on abx. ID following. --ortho saw patient on 05/30 and recommends medical management, close observation and intervention if symptoms worsen (5) Sepsis ICD Codes: A41.9 - Sepsis, unspecified organism Plan: --ID following --BC on 05/28 showed no growth --+BC--GPC --on Vanco Assessment 72y/o male with acute myeloid leukemia with blast crisis. 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 Plan 1. U/A negative, BC pending after low grade fever overnight. 2. Continue Abx per ID. 3. Repeat BMB shows blasts less than 5% 4. Continue to await recovery; transfuse as needed. 5. Transfuse 1 unit PRBC's and 1 unit platelets today. Attending Statement The exam, history, and the medical decision-making described in the above note were completed with the assistance of the mid-level provider. I reviewed and agree with the findings presented. I attest that I had a [id number] encounter with the patient on the same day, and personally performed and documented my assessment and findings in the medical record. Blood products ordered today more awake and alert today but still has slurred speech occasionally will get an MRI of brain with and without contrast Will consider CT guided LP for cytology, cultures, gram stain, viral serologies and flow cytometry discussed with patient and his Knee still swollen and painful l. Will ask orthopedics assistance in getting a knee aspirate tomorrow. bx to be done in sterile environment poor appetite despite being on Megace. encourage oral intake. If nutrition does not improve over the next 24-48 hours --the will consider TPN--albumin decline febrile today-- cefepime added and blood cultures pending d/w rn o/n events reviewed Problem Qualifiers (1) AML (acute myeloblastic leukemia): Qualified Codes: C92.00 - Acute myeloblastic leukemia, not having achieved remission Arin Castillo Jun 06, 2017 10:23 Shar Ibanez MD Jun 06, 2017 23:02
--- NOTE | 2017-06-06 12:57 | HHI.PR ---
Subjective Remarks awakes to voice, disoriented states he was out of bed however he declined to get out of bed per PT notes left knee pain better temp 100.6 last night Objective Objective Results - Vital Signs Date Time Temp Pulse Resp B/P (MAP) Pulse Ox O2 Delivery O2 Flow Rate FiO2 06/06/17 12:00 97.5 75 20 114/73 (87) 93 06/06/17 09:38 98.0 69 18 120/61 95 06/06/17 08:11 97.7 77 18 106/58 95 06/06/17 08:07 75 06/06/17 08:00 97.2 69 20 107/57 (74) 90 06/06/17 07:45 96.7 74 18 113/58 96 06/06/17 07:19 97.9 75 16 109/59 94 06/06/17 06:47 98.4 84 16 107/57 95 06/06/17 04:06 77 06/06/17 03:14 97.4 72 16 112/59 (76) 96 06/06/17 00:30 100.6 89 17 123/88 (100) 95 06/06/17 00:08 83 06/05/17 20:09 73 06/05/17 20:00 99.4 77 18 116/62 (80) 96 06/05/17 16:00 97.0 70 18 124/60 (81) 98 I/O 06/05/17 06/05/17 06/05/17 06/06/17 06/06/17 06/06/17 07:00 15:00 23:00 07:00 15:00 23:00 Intake Total 1340 ml 1000 ml 720 ml 1930 ml 1217 ml Output Total 1150 ml 525 ml 1150 ml 675 ml Balance 190 ml 475 ml -430 ml 1255 ml 1217 ml Intake Oral 240 ml 720 ml 260 ml IV Total 1100 ml 1000 ml 1670 ml 515 ml Packed Cells 400 ml Platelets 282 ml Blood Product IV Normal Saline Flush 20 ml Output Urine Total 1150 ml 525 ml 1150 ml 675 ml # Voids 1 1 # Bowel Movements 0 Result Diagram: 06/06/17 0325 06/06/17 0325 Imaging Last Impressions Chest X-Ray 05/16/17 0700 Signed Impressions: Service Date/Time: Tuesday, May 16, 2017 07:41 - CONCLUSION: The lungs are clear. No evidence of pneumothorax. Ethan Sabillon MD [facility] 05/15/17 0000 Signed Impressions: Service Date/Time: Monday, May 15, 2017 14:57 - CONCLUSION: Normal study. Ejection fraction 72%% Man Burden MD Catheter Placement X-Ray 05/15/17 0000 Signed Impressions: Service Date/Time: Monday, May 15, 2017 17:46 - CONCLUSION: Uncomplicated line placement as above. Man Burden MD Other Results Laboratory Tests Test 06/06/17 01:02 06/06/17 03:25 Urine Color YELLOW Urine Turbidity CLEAR Urine pH 7.0 Urine Specific [place] 1.008 Urine Protein TRACE Urine Glucose (UA) NEG Urine Ketones NEG Urine Occult Blood TRACE Urine Nitrite NEG Urine Bilirubin NEG Urine Urobilinogen 2.0 Urine Leukocyte Esterase NEG Urine RBC 2 Urine WBC 1 Urine Squamous Epithelial Cells <1 Microscopic Urinalysis Comment CULT NOT INDICATED White Blood Count 0.2 Red Blood Count 2.14 Hemoglobin 6.3 Hematocrit 18.8 Mean Corpuscular Volume 88.0 Mean Corpuscular Hemoglobin 29.4 Mean Corpuscular Hemoglobin Concent 33.5 Red Cell Distribution Width 13.9 Platelet Count 5 Mean Platelet Volume 7.9 CBC Comment AUTO DIFF Differential Total Cells Counted 10 Lymphocytes % 100 Neutrophils # (Manual) 0.0 Differential Comment FINAL DIFF MANUAL Platelet Estimate RARE Platelet Morphology Comment NORMAL Blood Urea Nitrogen 9 Creatinine 0.76 Random Glucose 93 Total Protein 5.5 Albumin 1.5 Calcium Level 7.9 Alkaline Phosphatase 62 Aspartate Amino Transf (AST/SGOT) 10 Alanine Aminotransferase (ALT/SGPT) 30 Lactate Dehydrogenase 81 Total Bilirubin 1.2 Sodium Level 140 Potassium Level 3.7 Chloride Level 107 Carbon Dioxide Level 26.2 Anion Gap 7 Estimat Glomerular Filtration Rate 101 Date/Time Source Procedure Growth Status 06/06/17 01:10 Blood Peripheral Aerobic Blood Culture Pending Received 06/06/17 01:10 Blood Peripheral Anaerobic Blood Culture Pending Received ROS General: Other (ROS unreliable ) Physical Exam Physical Exam GENERAL: This is a well-nourished, well-developed patient, in no apparent distress. SKIN: Petechial rash noted to bilateral pretibial areas. Skin pale and cool to touch HEAD: Atraumatic. Normocephalic. No temporal or scalp tenderness. EYES: Pupils equal round and reactive. Extraocular motions intact. No scleral icterus. No injection or drainage. ENT: Nose without bleeding, purulent drainage or septal hematoma. Throat without erythema, tonsillar hypertrophy or exudate. Uvula midline. Airway patent. NECK: Trachea midline. No JVD or lymphadenopathy. Supple, nontender, no meningeal signs. CARDIOVASCULAR: Regular rate and rhythm without murmurs, gallops, or rubs. RESPIRATORY: Clear to auscultation. Breath sounds equal bilaterally. No wheezes , rales, or rhonchi. Port-A-Cath noted to left chest wall area. GASTROINTESTINAL: Abdomen soft, non-tender, nondistended. No hepato-splenomegaly , or palpable masses. No guarding. MUSCULOSKELETAL: Left knee is less swollen. Painful with flexion. Right shoulder tender, no erythema noted. No deformity. Able to bring up right arm up to eye level,very painful with abduction. NEUROLOGICAL: Awakes to voice, disoriented. No focal deficit. 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 Admitted for chemotherapy induction. Acute myeloblastic leukemia Pancytopenia -Dr. Ibanez managing -Continue with Bactrim Levaquin Diflucan and acyclovir -completed chemo 05/23 -Continue with blood product replacement is needed -Monitor for bone marrow recovery -CT guided bone marrow bx 06/01, results back. Minimal residual disease. -getting PRBC and Plat today Coagulopathy -Monitor for bleeding - fibrinogen levels per oncology, elevated. GERD [place] esophagus -Continue Protonix 20 mg by mouth daily Anxiety and depression -Continue with Celexa 20 mg by mouth daily -continue Xanax PRN Confused, likely metabolic encephalopathy -CT head no acute findings -limit narcotics -ammonia level ok -continue to reorient frequently, inc. mobility -remains poorly motivated. Enc. out of bed Familial tremor, stable -continue with medical management Left knee and right shoulder pain, ? septic joint, effusion -MRI left knee noted, joint effusion, unable to have arthrocentesis due to low platelets. -ID has been consulted, input appreciated -Continue with empiric antibiotic, Cefepime added per ID -Continue with Allopurinol 100 mg po bid -Continue [place] PRN -Appreciate orthopedic input, doesn't believe septic joint. At this time patient is high risk for aspiration. Recommends to continue with medical management. Positive blood cultures, ? Bacteremia, left knee effusion. -Appreciate ID input -Continue with empiric antibiotics-Vanco and Cefepime -Blood and line cultures positive for Staph epi -blood cultures repeated, so far negative. Continue to follow -per ID, no need to remove port Right arm swelling, positive for DVT cephalic vein -Elevate arm as needed -Warm compresses -no anticoagulation recommended at this time due to low platelets. -right arm swelling improved, less erythema. No SCDs or anticoagulation recommended at this time due to thrombocytopenia Continue Protonix for GI prophylaxis PT and OT to increase mobility Condition guarded bone marrow recovery in progress, Pt. remains debilitated, not very motivated. D/W RN D/W pt D/W Dr. Kaur Patient was seen by myself and Dr. Kaur, this note is written on his behalf Problem Qualifiers (1) AML (acute myeloblastic leukemia): Qualified Codes: C92.00 - Acute myeloblastic leukemia, not having achieved remission Viola Sanon Jun 06, 2017 12:57
[2017-06-06] MEDS: MAGNESIUM HYDROXIDE SUSP 30 ML CUP PO PRN (13:20)
--- NOTE | 2017-06-06 14:35 | HHI.PR ---
Addendum to Inpatient Note Additional Information pt seen around 1400 full note to follow worse clinically co fatigue fever T m 100.6 on venco, cefepime repeat BC P cont vanco, cefepime will add antifungal coverage if cont to have fever on current Rx Marta Montilla MD Jun 06, 2017 14:35
[2017-06-06] MEDS: ALPRAZolam 1 MG TAB PO SCH (22:25)
--- NOTE | 2017-06-06 22:53 | HHI.IDPN ---
Subjective Subjective Remarks Delayed entry- pt seen around 1400 pt is much worse clinically co fatigue fever T m 100.6 in the last 24 hrs denies any other com,plaints, but appears quite lethargic on vanco, cefepime was added repeat BC P cont vanco, cefepime will add antifungal coverage if cont to have fever on current Rx Antibiotics vanco cefepime Allergies: Coded Allergies: No Known Allergies (Unverified , 05/10/17) Objective . Vital Signs Date Time Temp Pulse Resp B/P (MAP) Pulse Ox O2 Delivery O2 Flow Rate FiO2 06/06/17 20:28 97.5 79 16 131/61 (84) 95 06/06/17 14:59 96.9 73 20 137/64 (88) 95 06/06/17 12:00 97.5 75 20 114/73 (87) 93 06/06/17 09:38 98.0 69 18 120/61 95 06/06/17 08:11 97.7 77 18 106/58 95 06/06/17 08:07 75 06/06/17 08:00 97.2 69 20 107/57 (74) 90 06/06/17 07:45 96.7 74 18 113/58 96 06/06/17 07:19 97.9 75 16 109/59 94 06/06/17 06:47 98.4 84 16 107/57 95 06/06/17 04:06 77 06/06/17 03:14 97.4 72 16 112/59 (76) 96 06/06/17 00:30 100.6 89 17 123/88 (100) 95 06/06/17 00:08 83 06/06/17 06/06/17 06/07/17 15:00 23:00 07:00 Intake Total 1217 ml Output Total 200 ml 1000 ml Balance 1017 ml -1000 ml IV Total 515 ml Packed Cells 400 ml Platelets 282 ml Blood Product IV Normal Saline Flush 20 ml Output Urine Total 200 ml 1000 ml . Laboratory Tests Test 06/05/17 03:20 06/06/17 03:25 White Blood Count 0.3 TH/MM3 0.2 TH/MM3 Red Blood Count 2.39 MIL/MM3 2.14 MIL/MM3 Hemoglobin 7.2 GM/DL 6.3 GM/DL Hematocrit 21.1 % 18.8 % Mean Corpuscular Volume 88.2 FL 88.0 FL Mean Corpuscular Hemoglobin 30.1 PG 29.4 PG Mean Corpuscular Hemoglobin Concent 34.1 % 33.5 % Red Cell Distribution Width 14.5 % 13.9 % Platelet Count 14 TH/MM3 5 TH/MM3 Mean Platelet Volume 7.7 FL 7.9 FL CBC Comment AUTO DIFF AUTO DIFF Differential Total Cells Counted 99 10 Neutrophils % (Manual) 2 % Lymphocytes % 98 % 100 % Neutrophils # (Manual) 0.0 TH/MM3 0.0 TH/MM3 Differential Comment FINAL DIFF MANUAL FINAL DIFF MANUAL Platelet Estimate LOW RARE Platelet Morphology Comment NORMAL NORMAL Laboratory Tests Test 06/05/17 03:20 06/06/17 03:25 Blood Urea Nitrogen 11 MG/DL 9 MG/DL Creatinine 0.79 MG/DL 0.76 MG/DL Random Glucose 89 MG/DL 93 MG/DL Total Protein 5.8 GM/DL 5.5 GM/DL Albumin 1.7 GM/DL 1.5 GM/DL Calcium Level 7.9 MG/DL 7.9 MG/DL Uric Acid 1.8 MG/DL Alkaline Phosphatase 68 U/L 62 U/L Aspartate Amino Transf (AST/SGOT) 9 U/L 10 U/L Alanine Aminotransferase (ALT/SGPT) 27 U/L 30 U/L Total Bilirubin 1.3 MG/DL 1.2 MG/DL Sodium Level 140 MEQ/L 140 MEQ/L Potassium Level 3.4 MEQ/L 3.7 MEQ/L Chloride Level 106 MEQ/L 107 MEQ/L Carbon Dioxide Level 27.1 MEQ/L 26.2 MEQ/L Anion Gap 7 MEQ/L 7 MEQ/L Estimat Glomerular Filtration Rate 97 ML/MIN 101 ML/MIN Ammonia 16 MCMOL/L Lactate Dehydrogenase 81 U/L Microbiology Date/Time Source Procedure Growth Status 06/06/17 01:10 Blood Peripheral Aerobic Blood Culture Pending Received 06/06/17 01:10 Blood Peripheral Anaerobic Blood Culture Pending Received 06/06/17 01:05 Blood Peripheral Aerobic Blood Culture Pending Received 06/06/17 01:05 Blood Peripheral Anaerobic Blood Culture Pending Received Imaging Last Impressions Chest X-Ray 06/06/17 0049 Signed Impressions: Service Date/Time: Tuesday, June 06, 2017 01:25 - CONCLUSION: 1. Mild basilar atelectasis. [id number] in superior vena cava. Shravan Saldaña MD Bone Biopsy CT 06/01/17 0600 Signed Impressions: Service Date/Time: Thursday, June 01, 2017 12:15 - CONCLUSION: 1. Uncomplicated CT guided bone marrow aspirate. 2. Uncomplicated CT guided bone marrow biopsy. Siddharth Diamond MD Head CT 05/31/17 1755 Signed Impressions: Service Date/Time: May 19:34 - CONCLUSION: Negative noncontrast head CT. Man Ashton MD Upper Extremity Ultrasound 05/27/17 0000 Signed Impressions: Service Date/Time: Saturday, May 27, 2017 17:01 - CONCLUSION: 1. Acute thrombosis of the cephalic vein in the right forearm. 2. Otherwise, no sonographic evidence for right upper extremity DVT. Yunier Lange MD Shoulder X-Ray 05/25/17 0000 Signed Impressions: Service Date/Time: Thursday, May 25, 2017 14:18 - CONCLUSION: Negative for fracture. MRI of the knee had shown substantial leukemic infiltration. Jason Crawford MD FACR Knee X-Ray 05/25/17 0000 Signed Impressions: Service Date/Time: Thursday, May 25, 2017 14:21 - CONCLUSION: Negative for fracture. Moderate joint effusion. Jason Crawford MD FACR Knee MRI 05/25/17 0000 Signed Impressions: Service Date/Time: Thursday, May 25, 2017 13:35 - CONCLUSION: Joint effusion as described above intense enhancement. Considerations would include both inflammatory process as well as involvement with leukemia Marrow placement show intense enhancement consistent with leukemic infiltration. Jason Crawford MD [facility] 05/15/17 0000 Signed Impressions: Service Date/Time: Monday, May 15, 2017 14:57 - CONCLUSION: Normal study. Ejection fraction 72%% Man Burden MD Catheter Placement X-Ray 05/15/17 0000 Signed Impressions: Service Date/Time: Monday, May 15, 2017 17:46 - CONCLUSION: Uncomplicated line placement as above. Man Burden MD Physical Exam CONSTITUTIONAL/GENERAL: This is an adequately nourished patient, in no apparent distress. Lethargic and chronically ill appearing TUBES/LINES/DRAINS: infusaport in place R chest, looks OK, not tender to palpation SKIN: No jaundice, \ EYES: Pupils equal and round and reactive. Extraocular motions intact. No scleral icterus. No injection or drainage. Fundi not examined. ENT: Hearing grossly normal. Nose without bleeding or purulent drainage. Throat without visible erythema, exudates, masses, or lesions. CARDIOVASCULAR: Regular rate and rhythm without murmurs, gallops, or rubs. No JVD. Peripheral pulses symmetric. RESPIRATORY/CHEST: Symmetric, unlabored respirations. Clear to auscultation. Breath sounds equal bilaterally. No wheezes, rales, or rhonchi. GASTROINTESTINAL: Abdomen soft, non-tender, nondistended. No hepato-splenomegaly , or palpable masses. No guarding. Bowel sounds present. GENITOURINARY: Without palpable bladder distension. MUSCULOSKELETAL: Extremities without clubbing, cyanosis, or edema. + L knee with small effusion . NO redness ROM seems improved R forearm with resolved edema, no erythea much less prominent palpable cords, not tednder NEUROLOGICAL: lethargic, but fully arousable Motor and sensory grossly within normal limits. Follows commands. Clear speech. Moves all extremities. PSYCHIATRIC: No obvious anxiety/depression. no apparent hallucinations or other psychotic thought process. Assessment & Plan Remarks MDS with leukemic tranformation sp chemo, neutropenic L knee effusion, doubt septic arthritis - also image dw radiology: not likely septic arthritis pain is persistent and not improving Staph epi bacteremia source is likely PORT sustained last clx are negative Acute thrombosis of the cephalic vein in the right forearm aw PIV New LLL infiltrate New fever, BC P - cont vancomycin - cont cefepime - repeat blood clx add micafungin if cont to have fever and/or clincially septic cont vanco IV 14 days from 1st neg BC no need to remove PORT at this point monitor ANC Marta Montilla MD Jun 06, 2017 22:53
[2017-06-07] VITALS (11 sets, daily range): BP systolic 114–145; BP diastolic 61–70; PULSE 72–90; RESP 16–20; TEMP 98–100.6; O2SAT 95–98
[2017-06-07] MEDS: CEFEPIME INJ 2,000 MG in SODIUM CHLORIDE 0.9% INJ 100 ML IV SCH ×3 (02:00→18:34)
[2017-06-07] MEDS: SODIUM CHLOR 0.9% 1000 ML INJ 1,000 ML IV SCH ×2 (02:56→20:18)
[2017-06-07 06:27] LABS: MEAN CELL VOLUME 86.4 FL (80.0-100.0); MEAN CORPUSCULAR HGB CONC 33.5 % (32.0-36.0); RED BLOOD COUNT 2.31 MIL/MM3 (4.50-5.90); RED CELL DISTRIBUTION WIDTH 15.3 % (11.6-17.2); WHITE BLOOD COUNT 0.2 TH/MM3 (4.0-11.0)
[2017-06-07 06:28] LABS: HEMO FLAGS AUTO DIFF
[2017-06-07 06:29] LABS: HEMATOCRIT 19.9 % (39.0-51.0); PLATELET COUNT 7 TH/MM3 (150-450)
[2017-06-07 06:48] LABS: ANION GAP 7 MEQ/L (5-15); AST (GOT) 10 U/L (15-37); BICARBONATE 27.4 MEQ/L (21.0-32.0); BLOOD UREA NITROGEN 9 MG/DL (7-18); CHLORIDE 107 MEQ/L (98-107); GLOMERULAR FILTRATION RATE 93 ML/MIN (>89); POTASSIUM 3.6 MEQ/L (3.5-5.1); SODIUM (NA) 141 MEQ/L (136-145)
[2017-06-07 06:51] LABS: ALKALINE PHOSPHATASE 67 U/L (45-117); ALT (GPT) 28 U/L (12-78); TOTAL BILIRUBIN ADULT 1.2 MG/DL (0.2-1.0)
[2017-06-07 08:02] LABS: PLATELET ESTIMATE SMEAR RARE (NORMAL); PLATELET MORPHOLOGY NORMAL (NORMAL); SCAN/DIFF FINAL DIFF MANUAL; WBC DIFF SAMPLE 10
[2017-06-07] MEDS ORDERED: SODIUM CHLOR 0.9% 250 ML INJ 250 ML IV ONE (08:30)
[2017-06-07] MEDS: MEGESTROL ACETATE SUSP 400 MG/10 ML CUP PO SCH (08:57)
[2017-06-07] MEDS: CITALOPRAM HYDROBROMIDE 20 MG TAB PO SCH (08:58)
[2017-06-07] MEDS: FLUCONAZOLE 100 MG TAB PO SCH (08:58)
[2017-06-07] MEDS: PANTOPRAZOLE SOD 20 MG DELAYED RELEASE TAB PO SCH (08:58)
[2017-06-07] MEDS: NYSTAT/DIPHENHY/LIDO MOUTHWASH (Adult) 120ML SWISH-SWAL SCH ×4 (09:05→20:17)
[2017-06-07] MEDS: VANCOMYCIN INJ 1,500 MG in SODIUM CHLORID 0.9% 500 ML INJ 500 ML IV SCH ×2 (09:05→20:17)
--- NOTE | 2017-06-07 09:37 | PD.ONC.PN ---
Subjective Subjective Remarks Afebrile overnight Patient complaining of pain in his left knee He is calm and alert this am Objective Data Date Time Temp Pulse Resp B/P (MAP) Pulse Ox O2 Delivery O2 Flow Rate FiO2 06/07/17 04:54 98.2 75 16 125/70 (88) 95 06/07/17 00:45 98.2 75 16 125/70 (88) 95 06/06/17 23:42 80 06/06/17 20:28 97.5 79 16 131/61 (84) 95 06/06/17 14:59 96.9 73 20 137/64 (88) 95 06/06/17 12:00 97.5 75 20 114/73 (87) 93 06/06/17 09:38 98.0 69 18 120/61 95 Result Diagram: 06/07/17 0600 06/07/17 0600 Laboratory Results Laboratory Tests Test 06/07/17 06:00 White Blood Count 0.2 TH/MM3 Red Blood Count 2.31 MIL/MM3 Hemoglobin 6.7 GM/DL Hematocrit 19.9 % Mean Corpuscular Volume 86.4 FL Mean Corpuscular Hemoglobin 29.0 PG Mean Corpuscular Hemoglobin Concent 33.5 % Red Cell Distribution Width 15.3 % Platelet Count 7 TH/MM3 Mean Platelet Volume 7.8 FL CBC Comment AUTO DIFF Differential Total Cells Counted 10 Lymphocytes % 100 % Neutrophils # (Manual) 0.0 TH/MM3 Differential Comment FINAL DIFF MANUAL Platelet Estimate RARE Platelet Morphology Comment NORMAL Blood Urea Nitrogen 9 MG/DL Creatinine 0.82 MG/DL Random Glucose 91 MG/DL Total Protein 5.8 GM/DL Albumin 1.7 GM/DL Calcium Level 8.0 MG/DL Alkaline Phosphatase 67 U/L Aspartate Amino Transf (AST/SGOT) 10 U/L Alanine Aminotransferase (ALT/SGPT) 28 U/L Total Bilirubin 1.2 MG/DL Sodium Level 141 MEQ/L Potassium Level 3.6 MEQ/L Chloride Level 107 MEQ/L Carbon Dioxide Level 27.4 MEQ/L Anion Gap 7 MEQ/L Estimat Glomerular Filtration Rate 93 ML/MIN Culture Results Microbiology Date/Time Source Procedure Growth Status 06/06/17 01:10 Blood Peripheral Aerobic Blood Culture Pending Received 06/06/17 01:10 Blood Peripheral Anaerobic Blood Culture Pending Received 06/06/17 01:05 Blood Peripheral Aerobic Blood Culture Pending Received 06/06/17 01:05 Blood Peripheral Anaerobic Blood Culture Pending Received Administered Medications Medications (Trade) Dose Ordered Sig/Ivelisse Route PRN Reason Start Time Stop Time Status Last Admin Dose Admin Acetaminophen (Tylenol) 650 mg Q4H PRN PO fever>100.4 05/15/17 13:00 06/06/17 06:06 Citalopram Hydrobromide (CeleXA) 20 mg DAILY PO 05/16/17 09:00 06/07/17 08:58 Pantoprazole Sodium (Protonix) 20 mg DAILY PO 05/16/17 09:00 06/07/17 08:58 Ondansetron HCl (Zofran Inj) 4 mg Q6HR PRN IV PUSH nausea 05/15/17 14:00 05/16/17 10:30 Sodium Chloride (NS Flush) 5 ml UNSCH PRN IVF SEE PROTOCOL 05/15/17 15:00 05/26/17 21:47 Sodium Chloride (NS Flush) UNSCH PRN IVF SEE PROTOCOL 05/15/17 18:45 06/06/17 03:22 Trimethoprim/ Sulfamethoxazole (Bactrim Ds 800-160 Mg) 1 tab MoWeFr@09 PO 05/16/17 09:00 Future Hold 05/25/17 08:37 Fluconazole (Diflucan) 100 mg DAILY PO 05/16/17 09:00 06/07/17 08:58 Multi-Ingredient Mouthwash/Gargle (Magic Mouthwash Adult Liq) 5 ml QID SWISH-SWAL 05/16/17 13:00 06/07/17 09:05 Megestrol Acetate (Megace Liq) 300 mg DAILY PO 05/16/17 14:00 06/07/17 08:57 Alprazolam (Xanax) 1 mg HS PO 05/20/17 21:00 06/09/17 09:59 06/06/17 22:25 Magnesium Hydroxide (Milk Of Magnesia Liq) 30 ml DAILY PRN PO CONSTIPATION 05/21/17 11:30 06/06/17 13:20 Vancomycin HCl 1500 mg/Sodium Chloride 515 ml @ 250 mls/hr Q12H IV 05/26/17 08:00 06/07/17 09:05 Sodium Chloride 1,000 ml @ 84 mls/hr [id number] IV 06/01/17 15:00 06/07/17 02:56 Tramadol HCl (Ultram) 25 mg Q6H PRN PO PAIN 06/03/17 06:45 06/06/17 03:37 Cefepime HCl 2000 mg/Sodium Chloride 100 ml @ 200 mls/hr Q8H IV 06/06/17 02:00 06/07/17 02:00 Objective Remarks GENERAL: Elderly male lying in bed, awake and watching TV on approach SKIN: Warm and dry. HEAD: Normocephalic. EYES: No injection or drainage. NECK: Supple, trachea midline. CARDIOVASCULAR: Regular rate and rhythm RESPIRATORY: Lungs clear anteriorly. Breathing unlabored. GASTROINTESTINAL: Abdomen soft, non-tender, nondistended. EXTREMITIES: No cyanosis. Left knee mild swelling. NEUROLOGICAL: Normal speech. Moving all extremities. No obvious focal deficit. Assessment/Plan Problem List: (1) AML (acute myeloblastic leukemia) ICD Codes: C92.00 - Acute myeloblastic leukemia, not having achieved remission Plan: 05/15/17: Admission. given Hydrea. [facility] performed Leukapheresis bringing WBC from >100K to 44K. 05/16/17: D1. SONIA-C + [place]. 1 unit pRBC 05/17/17: D2. no transfusion. tolerating chemo 05/18/17: D3. no transfusion. 05/19/17: D4. 1 unit platelets today. No evidence of tumor lysis. Pt finished idarubicin yesterday. Continue SONIA-C. 05/20/17 D5: 1 unit platelets, 2 units PRBC's today. Will add on xanax prn and 1mg xanax at HS scheduled. Continue chemo, continue to monitor blood counts. 05/21/17.D6: No transfusion, start lactulose for Bm, continue chemo 05/22/17:D7 05/23/17: D8: Pt to have final bag chemo hung tonight. Transfuse 1 unit irradiated platelets, 1 unit irradiated PRBC's today. 05/24/17: D9: We'll transfuse 1 unit irradiated packed red blood cells today for hemoglobin of 6.9 05/25/17: D10. transfuse 1 unit platelets. pain in left knee and right shoulder. swelling in left knee. 05/26/17: D11. 1 unit platelets, 1 unit pRBC. 05/27/17: D12. 1 unit pRBC. 05/28/17: D13. no transfusion 05/29/17: D14. 1 unit pRBC 05/30/17: D15. 1 unit platelets 05/31/17: D16. 1 unit pRBC 06/01/17: D17: 1 unit platelets. repeat bone marrow biopsy 06/02/17: D18 1 unit PRBC 06/03/17: D19 No transfusion 06/04/17: D20. 1 unit platelets. waiting on pathology 06/05/17: D21. no events 06/06/17: D22. Transfuse 1 unit PRBC's, 1 unit platelets. 06/07/17: D23. Transfuse one unit packed cells, 1 unit platelets. 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 --He presented with hyperleukocytosis and acute blast crises. --on Allopurinol 100mg PO BID for prophylaxis (2) Pancytopenia ICD Codes: D61.818 - Other pancytopenia Status: Acute Plan: --transfuse him for hemoglobin of 7 or less. -- irradiated/CMV-negative blood products. --transfuse for platelet count of 10 or less. --Diflucan 100mg daily, Acyclovir 400mg PO BID (3) Coagulopathy ICD Codes: D68.9 - Coagulation defect, unspecified Status: Acute Plan: --monitor coags, fibrinogen, LDH and haptoglobin (4) Swelling of left knee joint ICD Codes: M25.462 - Effusion, left knee Plan: --diff dx includes but is not limited to gout vs pseudogout, vs. hemarthrosis vs. septic joint vs. arthritis. --MRI of knee shows joint effusion, unable to tap until counts recover --on abx. ID following. --ortho saw patient on 05/30 and recommends medical management, close observation and intervention if symptoms worsen (5) Sepsis ICD Codes: A41.9 - Sepsis, unspecified organism Plan: --ID following --BC on 05/28 showed no growth --+BC--GPC Assessment 72y/o male with acute myeloid leukemia with blast crisis. 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 Plan 1. Afebrile overnight. Cultures are pending. Antibiotics per infectious disease 2. MRI of the brain ordered to rule out leukemic involvement with pt's confusion. May order LP but will hold off for now. 3. Transfuse one unit packed cells and 1 unit platelets today. 4. Contacted orthopedic PA; will tap knee in sterile fashion at the bedside. Discussed with Dr Ibanez. Discussed with freight car repairer Attending Statement The exam, history, and the medical decision-making described in the above note were completed with the assistance of the mid-level provider. I reviewed and agree with the findings presented. I attest that I had a [id number] encounter with the patient on the same day, and personally performed and documented my assessment and findings in the medical record Transfuse a unit of pRBC and Platelets MRI brain today Orthopedics to re-asses for Knee aspirate today Will transfuse additional unit of platelets if plan for knee aspiration today focus on nutrition and PT d/w rn o/n events reviewed Problem Qualifiers (1) AML (acute myeloblastic leukemia): Qualified Codes: C92.00 - Acute myeloblastic leukemia, not having achieved remission Arin Castillo Jun 07, 2017 09:37 Shar Ibanez MD Jun 07, 2017 10:23
[2017-06-07] MEDS ORDERED: LIDOCAINE 1%/EPINEPHrine 1:100,000 SOLN 30 ML VIAL ONE (11:03)
--- NOTE | 2017-06-07 11:22 | PD.ORT.PN ---
Subjective Subjective Remarks Resting in bed. States that pain in knee has continued to improve slightly Objective Vitals Vital Signs Date Time Temp Pulse Resp B/P (MAP) Pulse Ox O2 Delivery O2 Flow Rate FiO2 06/07/17 07:50 98.7 78 20 122/65 (84) 97 06/07/17 04:54 98.2 75 16 125/70 (88) 95 06/07/17 00:45 98.2 75 16 125/70 (88) 95 06/06/17 23:42 80 06/06/17 20:28 97.5 79 16 131/61 (84) 95 06/06/17 14:59 96.9 73 20 137/64 (88) 95 06/06/17 12:00 97.5 75 20 114/73 (87) 93 I/O 06/06/17 06/06/17 06/06/17 06/07/17 06/07/17 06/07/17 07:00 15:00 23:00 07:00 15:00 23:00 Intake Total 1930 ml 1217 ml Output Total 675 ml 200 ml 1000 ml Balance 1255 ml 1017 ml -1000 ml Intake Oral 260 ml IV Total 1670 ml 515 ml Packed Cells 400 ml Platelets 282 ml Blood Product IV Normal Saline Flush 20 ml Output Urine Total 675 ml 200 ml 1000 ml # Voids 1 Result Diagram: 06/07/17 0600 06/07/17 0600 Imaging Last 24 hours Impressions Chest X-Ray 06/06/17 0049 Signed Impressions: Service Date/Time: Tuesday, June 06, 2017 01:25 - CONCLUSION: 1. Mild basilar atelectasis. [id number] in superior vena cava. Shravan Saldaña MD Objective Remarks Left lower extremity: No pain with hip range of motion. Moderate swelling of knee with range of motion minimal. He is 5 short of extension and is only able to flex approximately 20. Mild tenderness to palpation surrounding the knee. There is no erythema or drainage. Distally he has intact sensation good capillary refills. Assessment & Plan Assessment and Plan Left knee joint effusion with osteoarthritis We make him permission by oncology to proceed with aspiration of left knee. Consents are obtained and the knee is sterilely prepped with alcohol and ChloraPrep. 1.5 cc of lidocaine 25% is used to generate wheal at aspiration site. 10 cc of synovial fluid is obtained using a 20-gauge spinal needle. Sterile dressings are placed upon the left knee with compression dressing. There is minimal drainage or bleeding prior to compression dressing. Samples given to nurse and will have stat white blood cells, Gram stain, culture and sensitivity and crystal studies. Once lab's are obtained we will proceed as determined by the results. Dhruv Osorio Jr. Jun 07, 2017 11:22
--- NOTE | 2017-06-07 12:54 | HHI.PR ---
Subjective Remarks resting in bed dozing and appears more comfortable states he is weak (Marcie Summers) Objective Objective Results - Vital Signs Date Time Temp Pulse Resp B/P (MAP) Pulse Ox O2 Delivery O2 Flow Rate FiO2 06/07/17 07:50 98.7 78 20 122/65 (84) 97 06/07/17 04:54 98.2 75 16 125/70 (88) 95 06/07/17 00:45 98.2 75 16 125/70 (88) 95 06/06/17 23:42 80 06/06/17 20:28 97.5 79 16 131/61 (84) 95 06/06/17 14:59 96.9 73 20 137/64 (88) 95 I/O 06/06/17 06/06/17 06/06/17 06/07/17 06/07/17 06/07/17 07:00 15:00 23:00 07:00 15:00 23:00 Intake Total 1930 ml 1217 ml Output Total 675 ml 200 ml 1000 ml Balance 1255 ml 1017 ml -1000 ml Intake Oral 260 ml IV Total 1670 ml 515 ml Packed Cells 400 ml Platelets 282 ml Blood Product IV Normal Saline Flush 20 ml Output Urine Total 675 ml 200 ml 1000 ml # Voids 1 (Marcie Summers) Result Diagram: 06/07/17 0600 06/07/17 0600 ROS General: Fatigue, Weakness, Other (10 point ROS done,) Cardiac: Edema (rt. fa and lt knee) Neuro/MS: Other (anxiety, depression) (Marcie Summers) Physical Exam Physical Exam PHYSICAL EXAMINATION GENERAL: This is a male dozing , but arouses to verbal stimuli. HEAD: Normocephalic, sunken cheeks and orbitals OROPHARYNGEAL: Oropharynx dry NECK: Supple. Trachea midline without deviation. CARDIAC: Regular rhythm, regular rate, S1 and S2 are heard. LUNGS: Diminished to auscultation bilaterally. Low volumes ABDOMEN: Soft, nontender, no organomegaly or masses. soft low bowel sounds No rebound. No guarding. EXTREMITIES: lt knee edema. , rt. fa mild edema NEUROLOGICAL: Patient mood and affect flat, speech clear. SKIN:Warm and dry (Marcie Summers) A/P Assessment and Plan vital signs normal trends, BP 122/65 labs reviewed, receiving blood products today. Acute myeloblastic leukemia Pancytopenia, appreciate oncology input. management with Bactrim Levaquin Diflucan and acyclovir completed chemo 05/23, daily monitor of CBC, hgb 6.7, 1 unit PRBCs today and platelets CT guided bone marrow bx 06/01, results back. Minimal residual disease. Coagulopathy, Monitor for bleeding, bone marrow recovery, mild improvement GERD [place] esophagus, stable -Continue Protonix 20 mg by mouth daily Anxiety and depression, waxes and wans, mild gradual improvement -Continue with Celexa 20 mg by mouth daily and Xanax PRN metabolic encephalopathy, gradual improvement , knows where he is and situation , encouraged motivation and supportive care. Left knee and right shoulder pain, -MRI left knee noted, joint effusion, seen per ortho today, lt knee aspiration today,specimen gathered for labs, tolerated well after explanation of plan., dressing secure ID input appreciated , Cefepime and Vancomycin IV continue , positive blood cultures 05/26/17 Right arm swelling, positive for DVT cephalic vein, less edema and gradual improvement -Elevate arm as needed and warm compresses if needed. -no anticoagulation, thrombocytopenia Continue Protonix for GI prophylaxis PT and OT to increase mobility, encouraged Not ready for DC yet. D/W RN D/W pt D/W Dr. Kaur, seen on his behalf (Marcie Summers) Assessment and Plan seen, examined by myself, Dr Kaur, today Discussed with patient and family at his bedside Discussed with nurse Discussed with infectious disease specialist Left knee arthrocentesis appears to show hemarthrosis Transfusion one unit packed red blood cells today Transfusion platelets today Continue empiric antibiotics Discussed with mid level provider The exam, history, and the medical decision-making described in the above note were completed with the assistance of the mid-level provider. I reviewed the findings presented. I attest that I had a [id number] encounter with the patient on the same day, and personally performed and documented my assessment and findings in the medical record. (Jamil Kaur MD) Marcie Summers Jun 07, 2017 12:54 Jamil Kaur MD Jun 07, 2017 16:43
[2017-06-07 12:55] LABS: WBC, SYNOVIAL FLUID 80 /MM3 (0-200)
[2017-06-07] MEDS: diphenhydrAMINE HCL 25 MG CAP PO PRN (14:44)
[2017-06-07] MEDS: ACETAMINOPHEN 325 MG TAB PO PRN ×2 (14:44→21:51)
--- NOTE | 2017-06-07 16:31 | HHI.PR ---
Addendum to Inpatient Note Additional Information seen around 1615 full note to mo MS improved AF sp L knee grainage: hemorragic, not infected Marta Montilla MD Jun 07, 2017 16:31
--- NOTE | 2017-06-07 17:10 | PD.WCN.NOT ---
Wound Consult Description: Received vocera call for wound possible worsening wound to left buttock per LENA Britton Communicated with: LENA Britton, motor tester Patient Recommendation: 1. Please gently cleanse buttocks with mild soap and water and pat dry. 2. Apply Calazime barrier cream BID and PRN to bilateral buttocks and leave open to air. 3. Turn and reposition patient every 2 hours and PRN for comfort 4. Use ONLY 1 ultrasorb pad or 2 staggered for occasional incontinence and repositioning Additional Information: Patient seen on for re-evaluation of buttock wound. Patient was positioned to his right side for assessment of left buttock. There is a partial thickness skin loss area measuring ~4cm x 1cm x <0.1cm of ~50% pink and ~50% red non granulating tissue noted with non blanching erythematous periwound. Wound was previously charted as a DEEP TISSUE INJURY that has since opened up to partial thickness skin loss indicating a Stage II pressure injury with periwound of Stage I pressure injury. Right buttock is dry, non blanching erythema and measures ~3cm x ~1cm x 0cm indicating a Stage I pressure injury. Recommend to continue current treatment of Calazime BID and PRN as ordered by Dr Kaur on 05/31/17. Rachel Simon [facility] Jun 07, 2017 17:10
[2017-06-07] MEDS ORDERED: GADODIAMIDE PF 287 MG/ML 20 ML VIAL (for RAD MRI) IVCONTRAST ONE (18:08)
--- NOTE | 2017-06-07 18:19 | RADRPT ---
EXAM DATE/TIME: 06/07/2017 17:39 [facility] COMPARISON: CT BRAIN W/O CONTRAST, May 31, 2017, 19:34. INDICATIONS : Encephalitis. CONTRAST: 19 cc Omniscan (gadodiamide) IV MEDICAL HISTORY : AML and acosta's esophagus. SURGICAL HISTORY : Cholecystectomy. Right knee and left leg. ENCOUNTER: Initial ACUITY: 1 day PAIN SCORE: 0/10 LOCATION: Head. TECHNIQUE: Multiplanar, multisequence MRI of the brain was performed both prior to and following the administrat ion of paramagnetic contrast. FINDINGS: CEREBRUM: The ventricles are normal for age. No evidence of midline shift, mass lesion, hemorrhage or acute in farction. No extraaxial fluid collections are seen. The pituitary gland and suprasellar cistern are normal in configuration. WHITE MATTER: A few scattered subcentimeter foci of chronic flair signal abnormality seen in the white matter of adeel th vertebral hemispheres, mostly in the frontal lobes. POSTERIOR FOSSA: The cerebellum and brainstem are intact. The 4th ventricle is midline. The cerebellopontine angle is unremarkable. The cerebellar tonsils are normal in position. DIFFUSION IMAGING: No focal areas of restricted diffusion are seen. No evidence of acute infarction. EXTRACRANIAL: Mild mucoperiosteal thickening of the visualized sinuses. There is a uterus retention cyst in the lef t maxillary air cell. POST-CONTRAST: No abnormal areas of parenchymal or dural enhancement. No evidence of blood-brain barrier breakdown. CONCLUSION: 1. No acute intracranial abnormality. No evidence of encephalitis. 2. Minimal chronic white matter changes. 3. Mild sinus disease. Man Ashton MD on June 07, 2017 at 18:15 Board Certified Radiologist. This report was verified electronically.
[2017-06-07] MEDS: ALPRAZolam 1 MG TAB PO SCH (20:17)
--- NOTE | 2017-06-07 23:32 | HHI.IDPN ---
Subjective Subjective Remarks Delayed entry- seen around 1615 full note to follow MS improved afebrile earlier, but later started ton have fever again sp L knee grainage: hemorragic, not infected Antibiotics vanco cefepime Allergies: Coded Allergies: No Known Allergies (Unverified , 05/10/17) Objective . Vital Signs Date Time Temp Pulse Resp B/P (MAP) Pulse Ox O2 Delivery O2 Flow Rate FiO2 06/07/17 21:52 100.6 90 20 145/66 (92) 96 06/07/17 21:50 99.1 76 20 126/68 96 06/07/17 21:35 100.6 90 20 145/66 96 06/07/17 20:32 90 06/07/17 15:50 98.6 72 20 120/64 (82) 97 06/07/17 15:16 98.6 73 18 120/64 96 06/07/17 11:50 98.0 74 20 114/61 (78) 06/07/17 07:50 98.7 78 20 122/65 (84) 97 06/07/17 04:54 98.2 75 16 125/70 (88) 95 06/07/17 00:45 98.2 75 16 125/70 (88) 95 06/06/17 23:42 80 06/07/17 06/07/17 06/08/17 15:00 23:00 07:00 Intake Total 1222 ml Output Total 300 ml Balance 922 ml Intake Oral 720 ml Platelets 367 ml Blood Product IV Normal Saline Flush 135 ml Output Urine Total 300 ml # Voids 1 # Bowel Movements 1 . Laboratory Tests Test 06/06/17 03:25 06/07/17 06:00 White Blood Count 0.2 TH/MM3 0.2 TH/MM3 Red Blood Count 2.14 MIL/MM3 2.31 MIL/MM3 Hemoglobin 6.3 GM/DL 6.7 GM/DL Hematocrit 18.8 % 19.9 % Mean Corpuscular Volume 88.0 FL 86.4 FL Mean Corpuscular Hemoglobin 29.4 PG 29.0 PG Mean Corpuscular Hemoglobin Concent 33.5 % 33.5 % Red Cell Distribution Width 13.9 % 15.3 % Platelet Count 5 TH/MM3 7 TH/MM3 Mean Platelet Volume 7.9 FL 7.8 FL CBC Comment AUTO DIFF AUTO DIFF Differential Total Cells Counted 10 10 Lymphocytes % 100 % 100 % Neutrophils # (Manual) 0.0 TH/MM3 0.0 TH/MM3 Differential Comment FINAL DIFF MANUAL FINAL DIFF MANUAL Platelet Estimate RARE RARE Platelet Morphology Comment NORMAL NORMAL Laboratory Tests Test 06/06/17 03:25 06/07/17 06:00 Blood Urea Nitrogen 9 MG/DL 9 MG/DL Creatinine 0.76 MG/DL 0.82 MG/DL Random Glucose 93 MG/DL 91 MG/DL Total Protein 5.5 GM/DL 5.8 GM/DL Albumin 1.5 GM/DL 1.7 GM/DL Calcium Level 7.9 MG/DL 8.0 MG/DL Alkaline Phosphatase 62 U/L 67 U/L Aspartate Amino Transf (AST/SGOT) 10 U/L 10 U/L Alanine Aminotransferase (ALT/SGPT) 30 U/L 28 U/L Lactate Dehydrogenase 81 U/L Total Bilirubin 1.2 MG/DL 1.2 MG/DL Sodium Level 140 MEQ/L 141 MEQ/L Potassium Level 3.7 MEQ/L 3.6 MEQ/L Chloride Level 107 MEQ/L 107 MEQ/L Carbon Dioxide Level 26.2 MEQ/L 27.4 MEQ/L Anion Gap 7 MEQ/L 7 MEQ/L Estimat Glomerular Filtration Rate 101 ML/MIN 93 ML/MIN Microbiology Date/Time Source Procedure Growth Status 06/06/17 01:10 Blood Peripheral Aerobic Blood Culture - Preliminary NO GROWTH IN 1 DAY Resulted 06/06/17 01:10 Blood Peripheral Anaerobic Blood Culture - Preliminary NO GROWTH IN 1 DAY Resulted 06/06/17 01:05 Blood Peripheral Aerobic Blood Culture - Preliminary NO GROWTH IN 1 DAY Resulted 06/06/17 01:05 Blood Peripheral Anaerobic Blood Culture - Preliminary NO GROWTH IN 1 DAY Resulted 06/07/17 11:15 Fluid Synovial Fluid Gram Stain - Final Resulted 06/07/17 11:15 Fluid Synovial Fluid Body Fluid Culture Pending Resulted Imaging Last Impressions Chest X-Ray 06/06/17 0049 Signed Impressions: Service Date/Time: Tuesday, June 06, 2017 01:25 - CONCLUSION: 1. Mild basilar atelectasis. [id number] in superior vena cava. Shravan Saldaña MD Bone Biopsy CT 06/01/17 0600 Signed Impressions: Service Date/Time: Thursday, June 01, 2017 12:15 - CONCLUSION: 1. Uncomplicated CT guided bone marrow aspirate. 2. Uncomplicated CT guided bone marrow biopsy. Siddharth Diamond MD Head CT 05/31/17 1755 Signed Impressions: Service Date/Time: May 19:34 - CONCLUSION: Negative noncontrast head CT. Man Ashton MD Upper Extremity Ultrasound 05/27/17 0000 Signed Impressions: Service Date/Time: Saturday, May 27, 2017 17:01 - CONCLUSION: 1. Acute thrombosis of the cephalic vein in the right forearm. 2. Otherwise, no sonographic evidence for right upper extremity DVT. Yunier Lange MD Shoulder X-Ray 05/25/17 0000 Signed Impressions: Service Date/Time: Thursday, May 25, 2017 14:18 - CONCLUSION: Negative for fracture. MRI of the knee had shown substantial leukemic infiltration. Jason Crawford MD FACR Knee X-Ray 05/25/17 0000 Signed Impressions: Service Date/Time: Thursday, May 25, 2017 14:21 - CONCLUSION: Negative for fracture. Moderate joint effusion. Jason Crawford MD FACR Knee MRI 05/25/17 0000 Signed Impressions: Service Date/Time: Thursday, May 25, 2017 13:35 - CONCLUSION: Joint effusion as described above intense enhancement. Considerations would include both inflammatory process as well as involvement with leukemia Marrow placement show intense enhancement consistent with leukemic infiltration. Jason Crawford MD FACR [facility] 05/15/17 0000 Signed Impressions: Service Date/Time: Monday, May 15, 2017 14:57 - CONCLUSION: Normal study. Ejection fraction 72%% Man Burden MD Catheter Placement X-Ray 05/15/17 0000 Signed Impressions: Service Date/Time: Monday, May 15, 2017 17:46 - CONCLUSION: Uncomplicated line placement as above. Man Burden MD Physical Exam CONSTITUTIONAL/GENERAL: This is an adequately nourished patient, in no apparent distress.Appears much more alert TUBES/LINES/DRAINS: infusaport in place R chest, looks OK, not tender to palpation SKIN: No jaundice, \ EYES: Pupils equal and round and reactive. Extraocular motions intact. No scleral icterus. No injection or drainage. Fundi not examined. ENT: Hearing grossly normal. Nose without bleeding or purulent drainage. Throat without visible erythema, exudates, masses, or lesions. CARDIOVASCULAR: Regular rate and rhythm without murmurs, gallops, or rubs. No JVD. Peripheral pulses symmetric. RESPIRATORY/CHEST: Symmetric, unlabored respirations. Clear to auscultation. Breath sounds equal bilaterally. No wheezes, rales, or rhonchi. GASTROINTESTINAL: Abdomen soft, non-tender, nondistended. No hepato-splenomegaly , or palpable masses. No guarding. Bowel sounds present. GENITOURINARY: Without palpable bladder distension. MUSCULOSKELETAL: Extremities without clubbing, cyanosis, or edema. + L knee with small effusion . NO redness ROM seems improved R forearm with resolved edema, no erythea much less prominent palpable cords, not tednder NEUROLOGICAL: fully awake alert, not confused Motor and sensory grossly within normal limits. Follows commands. Clear speech. Moves all extremities. PSYCHIATRIC: No obvious anxiety/depression. no apparent hallucinations or other psychotic thought process. Assessment & Plan Remarks MDS with leukemic tranformation sp chemo, neutropenic L knee effusion, doubt septic arthritis - fluid looks hemorrhagic with negative Gstain Staph epi bacteremia source is likely PORT sustained last clx are negative Acute thrombosis of the cephalic vein in the right forearm aw PIV New LLL infiltrate New fever, BC P - cont vancomycin - cont cefepime - fu repeat blood clx - add micafungin cont vanco IV 14 days from 1st neg BC, but longer if cont to have neutroutropenic fever no need to remove PORT at this point monitor ANC Marta Montilla MD Jun 07, 2017 23:32
[2017-06-08] VITALS (10 sets, daily range): BP systolic 124–141; BP diastolic 53–73; PULSE 69–87; RESP 16–20; TEMP 97.5–101.4; O2SAT 96–99
[2017-06-08] MEDS: CEFEPIME INJ 2,000 MG in SODIUM CHLORIDE 0.9% INJ 100 ML IV SCH ×3 (01:05→18:00)
[2017-06-08] MEDS: SODIUM CHLOR 0.9% 1000 ML INJ 1,000 ML IV SCH ×2 (02:40→20:07)
[2017-06-08 06:02] LABS: HEMATOCRIT 21.3 % (39.0-51.0); MEAN CELL VOLUME 86.7 FL (80.0-100.0); MEAN CORPUSCULAR HEMOGLOBIN 29.1 PG (27.0-34.0); MEAN CORPUSCULAR HGB CONC 33.6 % (32.0-36.0); RED BLOOD COUNT 2.46 MIL/MM3 (4.50-5.90); RED CELL DISTRIBUTION WIDTH 14.7 % (11.6-17.2); WHITE BLOOD COUNT 0.2 TH/MM3 (4.0-11.0)
[2017-06-08 06:21] LABS: ANION GAP 7 MEQ/L (5-15); AST (GOT) 9 U/L (15-37); BICARBONATE 26.1 MEQ/L (21.0-32.0); BLOOD UREA NITROGEN 10 MG/DL (7-18); CHLORIDE 106 MEQ/L (98-107); GLOMERULAR FILTRATION RATE 105 ML/MIN (>89); POTASSIUM 3.2 MEQ/L (3.5-5.1); SODIUM (NA) 139 MEQ/L (136-145)
[2017-06-08 06:25] LABS: ALKALINE PHOSPHATASE 64 U/L (45-117); ALT (GPT) 25 U/L (12-78); TOTAL BILIRUBIN ADULT 1.4 MG/DL (0.2-1.0)
[2017-06-08 06:36] LABS: HEMO FLAGS AUTO DIFF
[2017-06-08 06:38] LABS: PLATELET COUNT 14 TH/MM3 (150-450)
[2017-06-08] MEDS: FLUCONAZOLE 100 MG TAB PO SCH (08:56)
[2017-06-08] MEDS: MEGESTROL ACETATE SUSP 400 MG/10 ML CUP PO SCH (08:57)
[2017-06-08] MEDS: PANTOPRAZOLE SOD 20 MG DELAYED RELEASE TAB PO SCH (08:57)
[2017-06-08] MEDS: NYSTAT/DIPHENHY/LIDO MOUTHWASH (Adult) 120ML SWISH-SWAL SCH ×4 (09:00→22:17)
[2017-06-08] MEDS: CITALOPRAM HYDROBROMIDE 20 MG TAB PO SCH (09:02)
[2017-06-08] MEDS: VANCOMYCIN INJ 1,500 MG in SODIUM CHLORID 0.9% 500 ML INJ 500 ML IV SCH ×2 (09:02→22:04)
[2017-06-08 11:09] LABS: POLYS (SEG NEUTROPHILS) 12 % (16-70); WBC DIFF SAMPLE 25
[2017-06-08 11:10] LABS: PLATELET ESTIMATE SMEAR RARE (NORMAL); PLATELET MORPHOLOGY NORMAL (NORMAL); SCAN/DIFF FINAL DIFF MANUAL
--- NOTE | 2017-06-08 12:16 | PD.ONC.PN ---
Subjective Subjective Remarks Tmax 100.6 overnight. Continuing to have interval confusion. Patient feels his knee is improving and he is improving. Objective Data Date Time Temp Pulse Resp B/P (MAP) Pulse Ox O2 Delivery O2 Flow Rate FiO2 06/08/17 06:28 99.2 79 18 137/67 (90) 96 06/08/17 01:30 97.5 69 19 138/61 (86) 98 06/08/17 00:43 98.8 70 20 129/72 98 06/07/17 21:52 100.6 90 20 145/66 (92) 96 06/07/17 21:50 99.1 76 20 126/68 96 06/07/17 21:35 100.6 90 20 145/66 96 06/07/17 20:32 90 06/07/17 20:00 99.4 81 19 135/63 (87) 98 06/07/17 15:50 98.6 72 20 120/64 (82) 97 06/07/17 15:16 98.6 73 18 120/64 96 06/08/17 06/08/17 06/08/17 07:00 15:00 23:00 Intake Total 733 ml Output Total 300 ml Balance 433 ml Result Diagram: 06/08/17 0530 06/08/17 0530 Laboratory Results Laboratory Tests Test 06/08/17 05:30 White Blood Count 0.2 TH/MM3 Red Blood Count 2.46 MIL/MM3 Hemoglobin 7.1 GM/DL Hematocrit 21.3 % Mean Corpuscular Volume 86.7 FL Mean Corpuscular Hemoglobin 29.1 PG Mean Corpuscular Hemoglobin Concent 33.6 % Red Cell Distribution Width 14.7 % Platelet Count 14 TH/MM3 Mean Platelet Volume 7.4 FL CBC Comment AUTO DIFF Differential Total Cells Counted 25 Neutrophils % (Manual) 12 % Lymphocytes % 88 % Neutrophils # (Manual) 0.0 TH/MM3 Differential Comment FINAL DIFF MANUAL Platelet Estimate RARE Platelet Morphology Comment NORMAL Blood Urea Nitrogen 10 MG/DL Creatinine 0.74 MG/DL Random Glucose 96 MG/DL Total Protein 5.9 GM/DL Albumin 1.9 GM/DL Calcium Level 8.3 MG/DL Alkaline Phosphatase 64 U/L Aspartate Amino Transf (AST/SGOT) 9 U/L Alanine Aminotransferase (ALT/SGPT) 25 U/L Total Bilirubin 1.4 MG/DL Sodium Level 139 MEQ/L Potassium Level 3.2 MEQ/L Chloride Level 106 MEQ/L Carbon Dioxide Level 26.1 MEQ/L Anion Gap 7 MEQ/L Estimat Glomerular Filtration Rate 105 ML/MIN Culture Results Microbiology Date/Time Source Procedure Growth Status 06/06/17 01:10 Blood Peripheral Aerobic Blood Culture - Preliminary NO GROWTH IN 2 DAYS Resulted 06/06/17 01:10 Blood Peripheral Anaerobic Blood Culture - Preliminary NO GROWTH IN 2 DAYS Resulted 06/06/17 01:05 Blood Peripheral Aerobic Blood Culture - Preliminary NO GROWTH IN 2 DAYS Resulted 06/06/17 01:05 Blood Peripheral Anaerobic Blood Culture - Preliminary NO GROWTH IN 2 DAYS Resulted 06/07/17 11:15 Fluid Synovial Fluid Gram Stain - Final Resulted 06/07/17 11:15 Fluid Synovial Fluid Body Fluid Culture Pending Resulted Administered Medications Medications (Trade) Dose Ordered Sig/Ivelisse Route PRN Reason Start Time Stop Time Status Last Admin Dose Admin Acetaminophen (Tylenol) 650 mg Q4H PRN PO fever>100.4 05/15/17 13:00 06/07/17 21:51 Citalopram Hydrobromide (CeleXA) 20 mg DAILY PO 05/16/17 09:00 06/08/17 09:02 Pantoprazole Sodium (Protonix) 20 mg DAILY PO 05/16/17 09:00 06/08/17 08:57 Ondansetron HCl (Zofran Inj) 4 mg Q6HR PRN IV PUSH nausea 05/15/17 14:00 05/16/17 10:30 Sodium Chloride (NS Flush) 5 ml UNSCH PRN IVF SEE PROTOCOL 05/15/17 15:00 05/26/17 21:47 Sodium Chloride (NS Flush) UNSCH PRN IVF SEE PROTOCOL 05/15/17 18:45 06/06/17 03:22 Trimethoprim/ Sulfamethoxazole (Bactrim Ds 800-160 Mg) 1 tab MoWeFr@09 PO 05/16/17 09:00 Future Hold 05/25/17 08:37 Fluconazole (Diflucan) 100 mg DAILY PO 05/16/17 09:00 06/08/17 08:56 Multi-Ingredient Mouthwash/Gargle (Magic Mouthwash Adult Liq) 5 ml QID SWISH-SWAL 05/16/17 13:00 06/07/17 20:17 Megestrol Acetate (Megace Liq) 300 mg DAILY PO 05/16/17 14:00 06/08/17 08:57 Alprazolam (Xanax) 1 mg HS PO 05/20/17 21:00 06/09/17 09:59 06/07/17 20:17 Magnesium Hydroxide (Milk Of Magnesia Liq) 30 ml DAILY PRN PO CONSTIPATION 05/21/17 11:30 06/06/17 13:20 Vancomycin HCl 1500 mg/Sodium Chloride 515 ml @ 250 mls/hr Q12H IV 05/26/17 08:00 06/08/17 09:02 Sodium Chloride 1,000 ml @ 84 mls/hr [id number] IV 06/01/17 15:00 06/08/17 02:40 Tramadol HCl (Ultram) 25 mg Q6H PRN PO PAIN 06/03/17 06:45 Future Hold 06/06/17 03:37 Cefepime HCl 2000 mg/Sodium Chloride 100 ml @ 200 mls/hr Q8H IV 06/06/17 02:00 06/08/17 01:05 Alprazolam (Xanax) 0.25 mg Q8H PRN PO anxiety 06/06/17 10:15 Future Hold 06/08/17 02:39 Acetaminophen (Tylenol) 650 mg Q4H PRN PO SEE LABEL COMMENTS 06/07/17 08:30 06/07/17 14:44 Diphenhydramine HCl (Benadryl) 25 mg Q4H PRN PO SEE LABEL COMMENTS 06/07/17 08:30 06/07/17 14:44 Objective Remarks GENERAL: Elderly male lying in bed in [facility]. SKIN: Warm and dry. HEAD: Normocephalic. EYES: No injection or drainage. NECK: Supple, trachea midline. CARDIOVASCULAR: Regular rate and rhythm RESPIRATORY: anterior campo clear. GASTROINTESTINAL: Abdomen soft, non-tender, nondistended. EXTREMITIES: No cyanosis. Left knee swollen with yudi bandage wrap in place NEUROLOGICAL: awake and alert, normal speech. moving all extremities. Assessment/Plan Problem List: (1) AML (acute myeloblastic leukemia) ICD Codes: C92.00 - Acute myeloblastic leukemia, not having achieved remission Plan: 05/15/17: Admission. given Hydrea. [place] performed Leukapheresis bringing WBC from >100K to 44K. 05/16/17: D1. SONIA-C + [facility]. 1 unit pRBC 05/17/17: D2. no transfusion. tolerating chemo 05/18/17: D3. no transfusion. 05/19/17: D4. 1 unit platelets today. No evidence of tumor lysis. Pt finished idarubicin yesterday. Continue SONIA-C. 05/20/17 D5: 1 unit platelets, 2 units PRBC's today. Will add on xanax prn and 1mg xanax at HS scheduled. Continue chemo, continue to monitor blood counts. 05/21/17.D6: No transfusion, start lactulose for Bm, continue chemo 05/22/17:D7 05/23/17: D8: Pt to have final bag chemo hung tonight. Transfuse 1 unit irradiated platelets, 1 unit irradiated PRBC's today. 05/24/17: D9: We'll transfuse 1 unit irradiated packed red blood cells today for hemoglobin of 6.9 05/25/17: D10. transfuse 1 unit platelets. pain in left knee and right shoulder. swelling in left knee. 05/26/17: D11. 1 unit platelets, 1 unit pRBC. 05/27/17: D12. 1 unit pRBC. 05/28/17: D13. no transfusion 05/29/17: D14. 1 unit pRBC 05/30/17: D15. 1 unit platelets 05/31/17: D16. 1 unit pRBC 06/01/17: D17: 1 unit platelets. repeat bone marrow biopsy 06/02/17: D18 1 unit PRBC 06/03/17: D19 No transfusion 06/04/17: D20. 1 unit platelets. waiting on pathology 06/05/17: D21. no events 06/06/17: D22. Transfuse 1 unit PRBC's, 1 unit platelets. 06/07/17: D23. Transfuse one unit packed cells, 1 unit platelets. 06/08/17: D24. 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 --He presented with hyperleukocytosis and acute blast crises. --on Allopurinol 100mg PO BID for prophylaxis (2) Pancytopenia ICD Codes: D61.818 - Other pancytopenia Status: Acute Plan: --transfuse him for hemoglobin of 7 or less. -- irradiated/CMV-negative blood products. --transfuse for platelet count of 10 or less. --Diflucan 100mg daily, Acyclovir 400mg PO BID (3) Coagulopathy ICD Codes: D68.9 - Coagulation defect, unspecified Status: Acute Plan: --monitor coags, fibrinogen, LDH and haptoglobin (4) Swelling of left knee joint ICD Codes: M25.462 - Effusion, left knee Plan: --diff dx includes but is not limited to gout vs pseudogout, vs. hemarthrosis vs. septic joint vs. arthritis. --MRI of knee shows joint effusion, unable to tap until counts recover --on abx. ID following. --ortho saw patient on 05/30 and recommends medical management, close observation and intervention if symptoms worsen (5) Sepsis ICD Codes: A41.9 - Sepsis, unspecified organism Plan: --ID following --BC on 05/28 showed no growth --+BC, 05/26--[facility] Assessment 72y/o male with acute myeloid leukemia with blast crisis. 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 Plan 1. continue antibiotics 2. monitor CBC 3. hold PRN xanax and ultram with AMS 4. ask PT to come daily Discharge Disposition: was refused from [facility] on 06/07 Attending Statement The exam, history, and the medical decision-making described in the above note were completed with the assistance of the mid-level provider. I reviewed and agree with the findings presented. I attest that I had a [id number] encounter with the patient on the same day, and personally performed and documented my assessment and findings in the medical record. remains very weak would need PT to see him daily stop sedating meds//intermittent confusion MRI brain was negative Will consider LP Micafungin added. On Vanc and Cef Blood cultures negative thus far Chest X-ray in AM knee aspirate cytology/gram stain culture pending d.w rn o/n events reviewed Problem Qualifiers (1) AML (acute myeloblastic leukemia): Qualified Codes: C92.00 - Acute myeloblastic leukemia, not having achieved remission Oma Chavez Jun 08, 2017 12:15 Shar Ibanez MD Jun 08, 2017 16:17
[2017-06-08] MEDS: POTASSIUM CHLORIDE 10 MEQ CONTROLLED RELEASE TAB PO SCH (12:21)
--- NOTE | 2017-06-08 12:43 | HHI.PR ---
Subjective Remarks resting in bed random conversation to previous jobs. confused, worse today, but not anxious. low grade fever (Marcie Summers) Objective Objective Results - Vital Signs Date Time Temp Pulse Resp B/P (MAP) Pulse Ox O2 Delivery O2 Flow Rate FiO2 06/08/17 06:28 99.2 79 18 137/67 (90) 96 06/08/17 01:30 97.5 69 19 138/61 (86) 98 06/08/17 00:43 98.8 70 20 129/72 98 06/07/17 21:52 100.6 90 20 145/66 (92) 96 06/07/17 21:50 99.1 76 20 126/68 96 06/07/17 21:35 100.6 90 20 145/66 96 06/07/17 20:32 90 06/07/17 20:00 99.4 81 19 135/63 (87) 98 06/07/17 15:50 98.6 72 20 120/64 (82) 97 06/07/17 15:16 98.6 73 18 120/64 96 I/O 06/07/17 06/07/17 06/07/17 06/08/17 06/08/17 06/08/17 07:00 15:00 23:00 07:00 15:00 23:00 Intake Total 1222 ml 733 ml Output Total 300 ml 300 ml Balance 922 ml 433 ml Intake Oral 720 ml Packed Cells 400 ml Platelets 367 ml Blood Product IV Normal Saline Flush 135 ml 333 ml Output Urine Total 300 ml 300 ml # Voids 1 # Bowel Movements 1 1 (Marcie Summers) Result Diagram: 06/08/1730 06/08/17 0530 Medications and IVs Administered Medications Medications (Trade) Dose Ordered Sig/Ivelisse Route PRN Reason Start Time Stop Time Status Last Admin Dose Admin Acetaminophen (Tylenol) 650 mg Q4H PRN PO fever>100.4 05/15/17 13:00 06/07/17 21:51 Citalopram Hydrobromide (CeleXA) 20 mg DAILY PO 05/16/17 09:00 06/08/17 09:02 Pantoprazole Sodium (Protonix) 20 mg DAILY PO 05/16/17 09:00 06/08/17 08:57 Ondansetron HCl (Zofran Inj) 4 mg Q6HR PRN IV PUSH nausea 05/15/17 14:00 05/16/17 10:30 Sodium Chloride (NS Flush) 5 ml UNSCH PRN IVF SEE PROTOCOL 05/15/17 15:00 05/26/17 21:47 Sodium Chloride (NS Flush) UNSCH PRN IVF SEE PROTOCOL 05/15/17 18:45 06/06/17 03:22 Trimethoprim/ Sulfamethoxazole (Bactrim Ds 800-160 Mg) 1 tab MoWeFr@09 PO 05/16/17 09:00 Future Hold 05/25/17 08:37 Fluconazole (Diflucan) 100 mg DAILY PO 05/16/17 09:00 06/08/17 08:56 Multi-Ingredient Mouthwash/Gargle (Magic Mouthwash Adult Liq) 5 ml QID SWISH-SWAL 05/16/17 13:00 06/07/17 20:17 Megestrol Acetate (Megace Liq) 300 mg DAILY PO 05/16/17 14:00 06/08/17 08:57 Alprazolam (Xanax) 1 mg HS PO 05/20/17 21:00 06/09/17 09:59 06/07/17 20:17 Magnesium Hydroxide (Milk Of Magnesia Liq) 30 ml DAILY PRN PO CONSTIPATION 05/21/17 11:30 06/06/17 13:20 Vancomycin HCl 1500 mg/Sodium Chloride 515 ml @ 250 mls/hr Q12H IV 05/26/17 08:00 06/08/17 09:02 Sodium Chloride 1,000 ml @ 84 mls/hr [id number] IV 06/01/17 15:00 06/08/17 02:40 Tramadol HCl (Ultram) 25 mg Q6H PRN PO PAIN 06/03/17 06:45 Future Hold 06/06/17 03:37 Cefepime HCl 2000 mg/Sodium Chloride 100 ml @ 200 mls/hr Q8H IV 06/06/17 02:00 06/08/17 12:21 Alprazolam (Xanax) 0.25 mg Q8H PRN PO anxiety 06/06/17 10:15 Future Hold 06/08/17 02:39 Acetaminophen (Tylenol) 650 mg Q4H PRN PO SEE LABEL COMMENTS 06/07/17 08:30 06/07/17 14:44 Diphenhydramine HCl (Benadryl) 25 mg Q4H PRN PO SEE LABEL COMMENTS 06/07/17 08:30 06/07/17 14:44 Potassium Chloride (KCl) 30 meq DAILY PO 06/08/17 12:00 06/08/17 12:21 (Marcie Summers) ROS General: Fatigue, Weakness, Other (unable to access, AMS, delirium) (Marcie Summers) Physical Exam Physical Exam PHYSICAL EXAMINATION GENERAL: This is a male resting in bed, AMS, delirium with anxiety. HEAD: Normocephalic. Facial features appear symmetric. OROPHARYNGEAL: Oropharynx dry NECK: Supple. Trachea midline without deviation. CARDIAC: Regular rhythm, regular rate, S1 and S2 LUNGS: diminished at bases to auscultation bilaterally. no cough ABDOMEN: Soft, nontender, Bowel sounds soft EXTREMITIES: no edema. NEUROLOGICAL: Patient mood and affect without anxiety, but delirium SKIN:Warm and dry, pale (Marcie Summers) A/P Assessment and Plan vital signs, low grade fever labs reviewed, K+ 3.2, 30meq K given PO, bilirubin remains elevated,anemia, 7.1 , platelets 14. Acute myeloblastic leukemia, monitor labs, cbc Pancytopenia, appreciate oncology input. management with Bactrim Levaquin Diflucan and acyclovir completed chemo 05/23, daily monitor of CBC, hgb 6.7, 1 unit PRBCs today and platelets CT guided bone marrow bx 06/01, results back. Minimal residual disease. Coagulopathy, Monitor for bleeding, Pleasant altered mental status, disoriented to situation , time, place, possible metabolic, vs mild delirium without anxiety. 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 -Continue with Celexa 20 mg by mouth daily and Xanax PRN metabolic encephalopathy, worse today. monitor labs, Left knee and right shoulder pain, -MRI left knee noted, joint effusion, lt knee aspiration 06/07,specimen labs pending, ID input appreciated , Cefepime and Vancomycin IV continue , positive blood cultures 05/26/17 Right arm swelling, positive for DVT cephalic vein, less edema and gradual improvement -Elevate arm as needed and warm compresses if needed. -no anticoagulation, thrombocytopenia Continue Protonix for GI prophylaxis PT and OT to increase mobility, encouraged , but patient has not been as willing to participate. Daily order now to maintain strength. Not ready for DC yet. Condition guarded D/W RN D/W pt, no family D/W Dr. Kaur, seen on his behalf (Marcie Summers) Assessment and Plan seen, examined by myself, Dr Kaur, today Discussed with patient Discussed with nurse Discussed with mid level provider, agree with the above No measurable improvement Unfortunately, I don't have much to offer for this gentleman at this time The exam, history, and the medical decision-making described in the above note were completed with the assistance of the mid-level provider. I reviewed the findings presented. I attest that I had a [id number] encounter with the patient on the same day, and personally performed and documented my assessment and findings in the medical record. (Jamil Kaur MD) Marcie Summers Jun 08, 2017 12:43 Jamil Kaur MD Jun 08, 2017 18:17
[2017-06-08] MEDS ORDERED: SODIUM CHLOR 0.9% 250 ML INJ 250 ML IV ONE (13:30)
--- NOTE | 2017-06-08 14:50 | PD.ORT.PN ---
Subjective Subjective Remarks Resting in bed. States that pain in knee has continued to improve slightly Objective Vitals Vital Signs Date Time Temp Pulse Resp B/P (MAP) Pulse Ox O2 Delivery O2 Flow Rate FiO2 06/08/17 12:00 98.6 77 18 133/69 (90) 96 06/08/17 08:00 98.2 80 18 141/73 (95) 96 06/08/17 06:28 99.2 79 18 137/67 (90) 96 06/08/17 01:30 97.5 69 19 138/61 (86) 98 06/08/17 00:43 98.8 70 20 129/72 98 06/07/17 21:52 100.6 90 20 145/66 (92) 96 06/07/17 21:50 99.1 76 20 126/68 96 06/07/17 21:35 100.6 90 20 145/66 96 06/07/17 20:32 90 06/07/17 20:00 99.4 81 19 135/63 (87) 98 06/07/17 15:50 98.6 72 20 120/64 (82) 97 06/07/17 15:16 98.6 73 18 120/64 96 I/O 06/07/17 06/07/17 06/07/17 06/08/17 06/08/17 06/08/17 07:00 15:00 23:00 07:00 15:00 23:00 Intake Total 1222 ml 733 ml Output Total 300 ml 300 ml Balance 922 ml 433 ml Intake Oral 720 ml Packed Cells 400 ml Platelets 367 ml Blood Product IV Normal Saline Flush 135 ml 333 ml Output Urine Total 300 ml 300 ml # Voids 1 # Bowel Movements 1 1 Result Diagram: 06/08/1730 06/08/17529 Imaging Last 24 hours Impressions Chest X-Ray 06/06/17 0049 Signed Impressions: Service Date/Time: Tuesday, June 06, 2017 01:25 - CONCLUSION: 1. Mild basilar atelectasis. [id number] in superior vena cava. Shravan Saldaña MD Objective Remarks Left lower extremity: No pain with hip range of motion. Moderate swelling of knee with range of motion minimal. Clean dry dressings intact with compression dressing. Slight increased swelling since yesterday. He is 5 short of extension and is only able to flex approximately 20. Mild tenderness to palpation surrounding the knee. There is no erythema or drainage. Distally he has intact sensation good capillary refills. Assessment & Plan Assessment and Plan Left knee joint effusion with osteoarthritis Laboratory results do not show infection at this time. We will continue to follow cultures. No organisms were seen on Gram stain and crystals were negative. Continue to use compressive dressing to help avoid continued swelling at this time. Ice and elevate to help decrease swelling. Physical therapy to work on range of motion of the knee and he will be weightbearing as tolerated We will examine the knee next week for progress. Dhruv Osorio Jr. Jun 08, 2017 14:50
--- NOTE | 2017-06-08 19:26 | RADRPT ---
EXAM DATE/TIME: 06/08/2017 19:06 [facility] COMPARISON: CHEST SINGLE AP, June 06, 2017, 1:25. INDICATIONS : Fever and shortness of breath. MEDICAL HISTORY : Hiatal hernia. Arthritis. Leukemia, Herniated discs. Blood dyscrasias. SURGICAL HISTORY : Cholecystectomy. Lithotripsy. Chemotherapy, Infusaport ENCOUNTER: Subsequent ACUITY: 3 weeks PAIN SCORE: 0/10 LOCATION: chest FINDINGS: Mild retrocardiac consolidation. There is mild cardiomegaly, compensated. No large effusion seen. No pneumothorax. Right internal jugular [id number] catheter with tip at the atriocaval junction again noted. CONCLUSION: Mild left base consolidation and mild compensated cardiomegaly. Man Ashton MD on June 08, 2017 at 19:24 Board Certified Radiologist. This report was verified electronically.
[2017-06-08] MEDS: MICAFUNGIN INJ 150 MG in SODIUM CHLORIDE 0.9% INJ 100 ML IV SCH (19:59)
[2017-06-08] MEDS: diphenhydrAMINE HCL 25 MG CAP PO PRN (22:05)
[2017-06-08] MEDS: ALPRAZolam 1 MG TAB PO SCH (22:05)
[2017-06-09] VITALS (9 sets, daily range): BP systolic 126–147; BP diastolic 62–67; PULSE 63–76; RESP 14–22; TEMP 97.5–99.6; O2SAT 96–99
[2017-06-09] MEDS: SODIUM CHLOR 0.9% 1000 ML INJ 1,000 ML IV SCH ×2 (01:45→16:22)
[2017-06-09] MEDS: CEFEPIME INJ 2,000 MG in SODIUM CHLORIDE 0.9% INJ 100 ML IV SCH ×3 (03:02→17:53)
[2017-06-09 07:02] LABS: HEMATOCRIT 23.2 % (39.0-51.0); MEAN CELL VOLUME 85.6 FL (80.0-100.0); MEAN CORPUSCULAR HEMOGLOBIN 28.8 PG (27.0-34.0); MEAN CORPUSCULAR HGB CONC 33.6 % (32.0-36.0); RED BLOOD COUNT 2.71 MIL/MM3 (4.50-5.90); RED CELL DISTRIBUTION WIDTH 15.1 % (11.6-17.2); WHITE BLOOD COUNT 0.2 TH/MM3 (4.0-11.0)
[2017-06-09 07:15] LABS: HEMO FLAGS AUTO DIFF
[2017-06-09 07:17] LABS: PLATELET COUNT 10 TH/MM3 (150-450)
[2017-06-09 07:20] LABS: INTERNATIONAL NORMALIZED RATIO 1.6 RATIO; PROTHROMBIN TIME - PATIENT 17.5 SEC (9.8-11.6)
[2017-06-09 07:27] LABS: ANION GAP 9 MEQ/L (5-15); AST (GOT) 11 U/L (15-37); BICARBONATE 25.3 MEQ/L (21.0-32.0); BLOOD UREA NITROGEN 10 MG/DL (7-18); CHLORIDE 107 MEQ/L (98-107); GLOMERULAR FILTRATION RATE 96 ML/MIN (>89); POTASSIUM 3.2 MEQ/L (3.5-5.1); SODIUM (NA) 141 MEQ/L (136-145)
[2017-06-09 07:28] LABS: ALT (GPT) 25 U/L (12-78); LDH SERUM 94 U/L (87-241)
[2017-06-09 07:31] LABS: ALKALINE PHOSPHATASE 65 U/L (45-117); TOTAL BILIRUBIN ADULT 1.5 MG/DL (0.2-1.0)
[2017-06-09 08:44] LABS: BANDS 4 % (0-6); PLASMA CELLS 2 % (0-0); POLYS (SEG NEUTROPHILS) 6 % (16-70); WBC DIFF SAMPLE 50
[2017-06-09 08:47] LABS: PLATELET ESTIMATE SMEAR RARE (NORMAL); PLATELET MORPHOLOGY NORMAL (NORMAL); SCAN/DIFF FINAL DIFF MANUAL
[2017-06-09] MEDS ORDERED: diphenhydrAMINE HCL 25 MG CAP PO PRN (09:00)
[2017-06-09] MEDS ORDERED: SODIUM CHLOR 0.9% 250 ML INJ 250 ML IV ONE (09:00)
[2017-06-09] MEDS: CITALOPRAM HYDROBROMIDE 20 MG TAB PO SCH (10:13)
[2017-06-09] MEDS: MEGESTROL ACETATE SUSP 400 MG/10 ML CUP PO SCH (10:13)
[2017-06-09] MEDS: NYSTAT/DIPHENHY/LIDO MOUTHWASH (Adult) 120ML SWISH-SWAL SCH ×4 (10:13→21:00)
[2017-06-09] MEDS: FLUCONAZOLE 100 MG TAB PO SCH (10:13)
[2017-06-09] MEDS: PANTOPRAZOLE SOD 20 MG DELAYED RELEASE TAB PO SCH (10:13)
[2017-06-09] MEDS: SODIUM CHLORIDE 0.9% FLUSH 10 ML FLUSH IVF PRN (10:14)
[2017-06-09] MEDS: POTASSIUM CHLORIDE 10 MEQ CONTROLLED RELEASE TAB PO SCH ×3 (10:14→20:14)
--- NOTE | 2017-06-09 10:48 | HHI.PR ---
Subjective Remarks resting in bed Drowsy but recognizes people Gen. pleasant confusion to situation, is now talking randomly about things in the far past Complaints of left knee pain especially with any type of movement (Marcie Summers) Objective Objective Results - Vital Signs Date Time Temp Pulse Resp B/P (MAP) Pulse Ox O2 Delivery O2 Flow Rate FiO2 06/09/17 08:00 98.7 76 18 127/67 (87) 96 06/09/17 04:00 99.4 74 18 126/62 (83) 97 06/09/17 00:23 73 06/09/17 00:00 99.6 73 18 144/65 (91) 96 06/08/17 23:39 99.2 75 19 136/65 99 06/08/17 23:23 98.6 77 16 130/53 99 06/08/17 20:23 74 06/08/17 20:00 101.4 70 20 139/71 (93) 97 06/08/17 16:00 98.5 87 18 124/63 (83) 96 06/08/17 12:00 98.6 77 18 133/69 (90) 96 I/O 06/08/17 06/08/17 06/08/17 06/09/17 06/09/17 06/09/17 07:00 15:00 23:00 07:00 15:00 23:00 Intake Total 733 ml 600 ml 930 ml Output Total 300 ml 200 ml 750 ml Balance 433 ml 400 ml 180 ml Intake Oral 600 ml 480 ml Packed Cells 400 ml 400 ml Blood Product IV Normal Saline Flush 333 ml 50 ml Output Urine Total 300 ml 200 ml 750 ml # Voids 4 2 # Bowel Movements 1 1 (Marcie Summers) Result Diagram: 06/09/1745 06/09/17 0645 ROS General: Other (limited ROS) (Marcie Summers) Physical Exam Physical Exam PHYSICAL EXAMINATION GENERAL: This is a male Resting in the bed , unshaven , pale. Speech slightly slurred and slow HEAD: Normocephalic, atraumatic OROPHARYNGEAL: Oropharynx dry NECK: Supple. Trachea midline without deviation. CARDIAC: Regular rhythm, regular rate, S1 and S2 LUNGS: Diminished in lower lung campo to auscultation bilaterally. ABDOMEN: Soft, nontender, no organomegaly or masses. Bowel sounds active Decreased appetite EXTREMITIES: Left knee and left lower leg edema. NEUROLOGICAL: Patient mood and affect continues with mild confusion SKIN:Warm, pale (Marcie Summers) A/P Assessment and Plan vital signs, low grade fever labs reviewed, hemoglobin 7.8, platelets 10 will receive platelets today, hypokalemia continues potassium 3.3, 30 mEq 2 doses today, recheck potassium in the morning Acute myeloblastic leukemia, monitor labs, cbc, will need platelets today Pancytopenia, appreciate oncology input. management with Bactrim Levaquin Diflucan and acyclovir completed chemo 05/23, CT guided bone marrow bx 06/01, results back. Minimal residual disease. Coagulopathy, Monitor for bleeding, Pleasant altered mental status continues, patient actually appears drowsy at time, Currently receiving no pain meds GERD Sanford esophagus, stable -Continue Protonix 20 mg by mouth daily Anxiety and depression, waxes and wans, now complicated with AMS. Still has periods of anxiety, metabolic encephalopathy, continues to worsen, early receiving no narcotics, and no Xanax, weaned Left knee and right shoulder pain, -MRI left knee noted, joint effusion, lt knee aspiration 06/07,specimen labs pending, ID input appreciated , Cefepime and Vancomycin IV continue , positive blood cultures 05/26/17 Still complains of extreme left knee pain especially with any type of movement Right arm swelling, positive for DVT cephalic vein, less edema, slow gradual improvement -Elevate arm as needed and warm compresses if needed. -no anticoagulation, thrombocytopenia Continue Protonix for GI prophylaxis PT and OT to increase mobility, encouraged , but patient has not been as willing to participate. Daily order now to maintain strength. Minimal if any participation Not ready for DC yet. Condition guarded D/W RN D/W pt, D/W Dr. Obrien, seen on his behalf (Marcie Summers) Assessment and Plan Patient is seen and examined Chart reviewed Hematology input noted Discussed with patient Discussed with Marcie Agree with above Continue supportive care Will follow (Lydia Obrien MD) Marcie Summers Jun 09, 2017 10:48 Lydia Obrien MD Jun 09, 2017 16:17
[2017-06-09] MEDS: VANCOMYCIN INJ 1,500 MG in SODIUM CHLORID 0.9% 500 ML INJ 500 ML IV SCH ×2 (11:05→20:14)
--- NOTE | 2017-06-09 11:06 | PD.ONC.PN ---
Subjective Subjective Remarks Tmax 101.4 overnight. Patient remains sedated, confused. Tells me the year is 1977 and that he is at the [facility]. He is able to tell me his correct name. He tells me he feels like his knee is getting better. Objective Data Date Time Temp Pulse Resp B/P (MAP) Pulse Ox O2 Delivery O2 Flow Rate FiO2 06/09/17 08:00 98.7 76 18 127/67 (87) 96 06/09/17 04:00 99.4 74 18 126/62 (83) 97 06/09/17 00:23 73 06/09/17 00:00 99.6 73 18 144/65 (91) 96 06/08/17 23:39 99.2 75 19 136/65 99 06/08/17 23:23 98.6 77 16 130/53 99 06/08/17 20:23 74 06/08/17 20:00 101.4 70 20 139/71 (93) 97 06/08/17 16:00 98.5 87 18 124/63 (83) 96 06/08/17 12:00 98.6 77 18 133/69 (90) 96 06/09/17 06/09/17 06/09/17 07:00 15:00 23:00 Intake Total 930 ml Output Total 750 ml Balance 180 ml Result Diagram: 06/09/17 0645 06/09/17 0645 Laboratory Results Laboratory Tests Test 06/09/17 06:45 White Blood Count 0.2 TH/MM3 Red Blood Count 2.71 MIL/MM3 Hemoglobin 7.8 GM/DL Hematocrit 23.2 % Mean Corpuscular Volume 85.6 FL Mean Corpuscular Hemoglobin 28.8 PG Mean Corpuscular Hemoglobin Concent 33.6 % Red Cell Distribution Width 15.1 % Platelet Count 10 TH/MM3 Mean Platelet Volume 7.6 FL CBC Comment AUTO DIFF Differential Total Cells Counted 50 Neutrophils % (Manual) 6 % Band Neutrophils % 4 % Lymphocytes % 84 % Monocytes % 4 % Neutrophils # (Manual) 0.0 TH/MM3 Differential Comment FINAL DIFF MANUAL Plasma Cells 2 % Platelet Estimate RARE Platelet Morphology Comment NORMAL Prothrombin Time 17.5 SEC Prothromb Time International Ratio 1.6 RATIO Activated Partial Thromboplast Time 36.0 SEC Fibrinogen 582 mg/dL Blood Urea Nitrogen 10 MG/DL Creatinine 0.80 MG/DL Random Glucose 97 MG/DL Total Protein 6.0 GM/DL Albumin 1.8 GM/DL Calcium Level 8.2 MG/DL Alkaline Phosphatase 65 U/L Aspartate Amino Transf (AST/SGOT) 11 U/L Alanine Aminotransferase (ALT/SGPT) 25 U/L Lactate Dehydrogenase 94 U/L Total Bilirubin 1.5 MG/DL Sodium Level 141 MEQ/L Potassium Level 3.2 MEQ/L Chloride Level 107 MEQ/L Carbon Dioxide Level 25.3 MEQ/L Anion Gap 9 MEQ/L Estimat Glomerular Filtration Rate 96 ML/MIN Culture Results Microbiology Date/Time Source Procedure Growth Status 06/07/17 11:15 Fluid Synovial Fluid Gram Stain - Final Resulted 06/07/17 11:15 Fluid Synovial Fluid Body Fluid Culture - Preliminary NO GROWTH IN 24 HOURS. Resulted Imaging Studies Last 24 hours Impressions Chest X-Ray 06/08/17 1617 Signed Impressions: Service Date/Time: Thursday, June 08, 2017 19:06 - CONCLUSION: Mild left base consolidation and mild compensated cardiomegaly. Man Ashton MD Administered Medications Medications (Trade) Dose Ordered Sig/Ivelisse Route PRN Reason Start Time Stop Time Status Last Admin Dose Admin Acetaminophen (Tylenol) 650 mg Q4H PRN PO fever>100.4 05/15/17 13:00 06/07/17 21:51 Citalopram Hydrobromide (CeleXA) 20 mg DAILY PO 05/16/17 09:00 06/09/17 10:13 Pantoprazole Sodium (Protonix) 20 mg DAILY PO 05/16/17 09:00 06/09/17 10:13 Ondansetron HCl (Zofran Inj) 4 mg Q6HR PRN IV PUSH nausea 05/15/17 14:00 05/16/17 10:30 Sodium Chloride (NS Flush) 5 ml UNSCH PRN IVF SEE PROTOCOL 05/15/17 15:00 06/09/17 10:14 Sodium Chloride (NS Flush) UNSCH PRN IVF SEE PROTOCOL 05/15/17 18:45 06/06/17 03:22 Trimethoprim/ Sulfamethoxazole (Bactrim Ds 800-160 Mg) 1 tab MoWeFr@09 PO 05/16/17 09:00 Future Hold 05/25/17 08:37 Fluconazole (Diflucan) 100 mg DAILY PO 05/16/17 09:00 06/09/17 10:13 Multi-Ingredient Mouthwash/Gargle (Magic Mouthwash Adult Liq) 5 ml QID SWISH-SWAL 05/16/17 13:00 06/09/17 10:13 Megestrol Acetate (Megace Liq) 300 mg DAILY PO 05/16/17 14:00 06/09/17 10:13 Magnesium Hydroxide (Milk Of Magnesia Liq) 30 ml DAILY PRN PO CONSTIPATION 05/21/17 11:30 06/06/17 13:20 Vancomycin HCl 1500 mg/Sodium Chloride 515 ml @ 250 mls/hr Q12H IV 05/26/17 08:00 06/08/17 22:04 Sodium Chloride 1,000 ml @ 42 mls/hr [id number] IV 06/01/17 15:00 06/08/17 20:07 Tramadol HCl (Ultram) 25 mg Q6H PRN PO PAIN 06/03/17 06:45 Future Hold 06/06/17 03:37 Cefepime HCl 2000 mg/Sodium Chloride 100 ml @ 200 mls/hr Q8H IV 06/06/17 02:00 06/09/17 10:00 Alprazolam (Xanax) 0.25 mg Q8H PRN PO anxiety 06/06/17 10:15 Future Hold 06/08/17 02:39 Acetaminophen (Tylenol) 650 mg Q4H PRN PO SEE LABEL COMMENTS 06/07/17 08:30 06/07/17 14:44 Potassium Chloride (KCl) 30 meq DAILY PO 06/08/17 12:00 06/09/17 10:14 Micafungin Sodium 150 mg/Sodium Chloride 100 ml @ 100 mls/hr Q24H IV 06/08/17 18:00 06/08/17 19:59 Sodium Chloride 250 ml @ 15 mls/hr ONCE ONCE IV 06/09/17 09:00 06/10/17 01:39 06/09/17 09:00 Objective Remarks GENERAL: Elderly male supine in bed, sleeping on approach. SKIN: Warm and dry. HEAD: Normocephalic. EYES: No injection or drainage. NECK: Supple, trachea midline. CARDIOVASCULAR: Regular rate and rhythm RESPIRATORY: anterior campo clear. GASTROINTESTINAL: Abdomen soft, non-tender, nondistended. EXTREMITIES: No cyanosis. Left knee swollen with yudi bandage wrap in place NEUROLOGICAL: sleeping on approach. easily awakened. oriented to self, but not time or place. Assessment/Plan Problem List: (1) AML (acute myeloblastic leukemia) ICD Codes: C92.00 - Acute myeloblastic leukemia, not having achieved remission Plan: 05/15/17: Admission. given Hydrea. [facility] performed Leukapheresis bringing WBC from >100K to 44K. 05/16/17: D1. SONIA-C + Maria Del Rosario. 1 unit pRBC 05/17/17: D2. no transfusion. tolerating chemo 05/18/17: D3. no transfusion. 05/19/17: D4. 1 unit platelets today. No evidence of tumor lysis. Pt finished idarubicin yesterday. Continue SONIA-C. 05/20/17 D5: 1 unit platelets, 2 units PRBC's today. Will add on xanax prn and 1mg xanax at HS scheduled. Continue chemo, continue to monitor blood counts. 05/21/17.D6: No transfusion, start lactulose for Bm, continue chemo 05/22/17:D7 05/23/17: D8: Pt to have final bag chemo hung tonight. Transfuse 1 unit irradiated platelets, 1 unit irradiated PRBC's today. 05/24/17: D9: We'll transfuse 1 unit irradiated packed red blood cells today for hemoglobin of 6.9 05/25/17: D10. transfuse 1 unit platelets. pain in left knee and right shoulder. swelling in left knee. 05/26/17: D11. 1 unit platelets, 1 unit pRBC. 05/27/17: D12. 1 unit pRBC. 05/28/17: D13. no transfusion 05/29/17: D14. 1 unit pRBC 05/30/17: D15. 1 unit platelets 05/31/17: D16. 1 unit pRBC 06/01/17: D17: 1 unit platelets. repeat bone marrow biopsy 06/02/17: D18 1 unit PRBC 06/03/17: D19 No transfusion 06/04/17: D20. 1 unit platelets. waiting on pathology 06/05/17: D21. no events 06/06/17: D22. Transfuse 1 unit PRBC's, 1 unit platelets. 06/07/17: D23. Transfuse one unit packed cells, 1 unit platelets. 06/08/17: D24. 1 unit pRBC 06/09/17: D25. remains confused. 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 --He presented with hyperleukocytosis and acute blast crises. --on Allopurinol 100mg PO BID for prophylaxis (2) Pancytopenia ICD Codes: D61.818 - Other pancytopenia Status: Acute Plan: --transfuse him for hemoglobin of 7 or less. -- irradiated/CMV-negative blood products. --transfuse for platelet count of 10 or less. --Diflucan 100mg daily, Acyclovir 400mg PO BID (3) Coagulopathy ICD Codes: D68.9 - Coagulation defect, unspecified Status: Acute Plan: --monitor coags, fibrinogen, LDH and haptoglobin (4) Swelling of left knee joint ICD Codes: M25.462 - Effusion, left knee Plan: --diff dx includes but is not limited to gout vs pseudogout, vs. hemarthrosis vs. septic joint vs. arthritis. --MRI of knee shows joint effusion, unable to tap until counts recover --on abx. ID following. --ortho saw patient on 05/30 and recommends medical management, close observation and intervention if symptoms worsen (5) Sepsis ICD Codes: A41.9 - Sepsis, unspecified organism Plan: --ID following --BC on 05/28 showed no growth --+BC, 05/26--GPC Assessment 72y/o male with acute myeloid leukemia with blast crisis. 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 Plan 1. continue antibiotics 2. reduce fluids to 42cc/hr 3. obtain repeat blood cultures for fever spike overnight Attending Statement The exam, history, and the medical decision-making described in the above note were completed with the assistance of the mid-level provider. I reviewed and agree with the findings presented. I attest that I had a [id number] encounter with the patient on the same day, and personally performed and documented my assessment and findings in the medical record. Waxing and waning sensorium LP on Sunday Poor oral intake INR prolonged TPN under consideration Give Vitamin K 5mg PO times once Continue Vanc, cefepime and Micafungin Chest X-ray with interstitial prominence check BNP --has wet cough 2 D echo Strict I&O d/w rn o/n events reviewed Problem Qualifiers (1) AML (acute myeloblastic leukemia): Qualified Codes: C92.00 - Acute myeloblastic leukemia, not having achieved remission Oma Chavez Jun 09, 2017 11:06 Shar Ibanez MD Jun 09, 2017 11:49
[2017-06-09] MEDS ORDERED: PHYTONADIONE 5 MG TAB PO ONE (14:00)
[2017-06-09] MEDS: diphenhydrAMINE HCL 25 MG CAP PO PRN (14:29)
[2017-06-09] MEDS: ACETAMINOPHEN 325 MG TAB PO PRN (14:29)
[2017-06-09] MEDS: MICAFUNGIN INJ 150 MG in SODIUM CHLORIDE 0.9% INJ 100 ML IV SCH (16:32)
[2017-06-09 21:04] LABS: MAGNESIUM 1.8 MG/DL (1.5-2.5)
[2017-06-09] MEDS: CLINIMIX E 4.25/25 1000 mL- </= 42 mls/hr IV-CENTRAL SCH ×3 (22:07)
[2017-06-09] MEDS: FAT EMULSION 20% INJ 250 ML (@10 mls/hr) IV-CENTRAL SCH (22:07)
[2017-06-10] VITALS (7 sets, daily range): BP systolic 129–146; BP diastolic 67–76; PULSE 63–83; RESP 18–20; TEMP 96.7–100.7; O2SAT 95–100
[2017-06-10] MEDS ORDERED: FUROSEMIDE 20 MG/2 ML VIAL IV PUSH ONE
[2017-06-10] MEDS: CEFEPIME INJ 2,000 MG in SODIUM CHLORIDE 0.9% INJ 100 ML IV SCH ×3 (03:07→17:06)
[2017-06-10 07:10] LABS: HEMATOCRIT 23.3 % (39.0-51.0); MEAN CELL VOLUME 85.9 FL (80.0-100.0); MEAN CORPUSCULAR HEMOGLOBIN 29.2 PG (27.0-34.0); PLATELET COUNT 28 TH/MM3 (150-450); RED BLOOD COUNT 2.72 MIL/MM3 (4.50-5.90); RED CELL DISTRIBUTION WIDTH 15.4 % (11.6-17.2); WHITE BLOOD COUNT 0.2 TH/MM3 (4.0-11.0)
[2017-06-10 07:14] LABS: HEMO FLAGS AUTO DIFF
[2017-06-10 07:17] LABS: APTT (PATIENT) 35.7 SEC (24.3-30.1); INTERNATIONAL NORMALIZED RATIO 1.4 RATIO; PROTHROMBIN TIME - PATIENT 16.1 SEC (9.8-11.6)
[2017-06-10 07:23] LABS: ALT (GPT) 28 U/L (12-78); ANION GAP 6 MEQ/L (5-15); AST (GOT) 12 U/L (15-37); BICARBONATE 28.2 MEQ/L (21.0-32.0); BLOOD UREA NITROGEN 11 MG/DL (7-18); CHLORIDE 108 MEQ/L (98-107); GLOMERULAR FILTRATION RATE 98 ML/MIN (>89); POTASSIUM 3.3 MEQ/L (3.5-5.1); SODIUM (NA) 142 MEQ/L (136-145)
[2017-06-10 07:25] LABS: ALKALINE PHOSPHATASE 63 U/L (45-117)
[2017-06-10 08:09] LABS: BANDS 4 % (0-6); PLATELET ESTIMATE SMEAR LOW (NORMAL); PLATELET MORPHOLOGY NORMAL (NORMAL); POLYS (SEG NEUTROPHILS) 12 % (16-70); SCAN/DIFF FINAL DIFF MANUAL; WBC DIFF SAMPLE 25
[2017-06-10] MEDS: VANCOMYCIN INJ 1,500 MG in SODIUM CHLORID 0.9% 500 ML INJ 500 ML IV SCH ×2 (08:14→20:07)
[2017-06-10] MEDS: NYSTAT/DIPHENHY/LIDO MOUTHWASH (Adult) 120ML SWISH-SWAL SCH ×4 (08:14→20:09)
[2017-06-10] MEDS: PANTOPRAZOLE SOD 20 MG DELAYED RELEASE TAB PO SCH (08:15)
[2017-06-10] MEDS: MEGESTROL ACETATE SUSP 400 MG/10 ML CUP PO SCH (08:15)
[2017-06-10] MEDS: POTASSIUM CHLORIDE 10 MEQ CONTROLLED RELEASE TAB PO SCH (08:15)
[2017-06-10] MEDS: FLUCONAZOLE 100 MG TAB PO SCH (08:15)
[2017-06-10] MEDS: CITALOPRAM HYDROBROMIDE 20 MG TAB PO SCH (08:15)
[2017-06-10 08:31] LABS: MAGNESIUM 1.9 MG/DL (1.5-2.5)
--- NOTE | 2017-06-10 09:02 | RADRPT ---
EXAM DATE/TIME: 06/10/2017 08:03 [facility] COMPARISON: CHEST SINGLE AP, June 08, 2017, 19:06. INDICATIONS : Cough and shortness of breath. MEDICAL HISTORY : Hiatal hernia. Arthritis. Leukemia, Herniated discs. Blood dyscrasias. SURGICAL HISTORY : Cholecystectomy. Lithotripsy. Chemotherapy, Infusaport ENCOUNTER: Initial ACUITY: 1 day PAIN SCORE: 0/10 LOCATION: Bilateral chest FINDINGS: Single view of the chest again demonstrates mild cardiomegaly. There is improved aeration of the left hemithorax with decreased atelectasis of the left lower lobe. The right hemithorax is clear. There i s stable appearance of the right-sided central line. Pulmonary vasculature appears mildly prominent. Osseous structures are unremarkable. CONCLUSION: Overall improved lung exam with clearing of a majority of the atelectasis within the left lower lobe. Persistent mild cardiomegaly and cephalization of pulmonary vasculature consistent with congestive h eart failure or volume overload. Sabine Stephenson MD on June 10, 2017 at 9:00 Board Certified Radiologist. This report was verified electronically.
--- NOTE | 2017-06-10 10:07 | PD.ONC.PN ---
Subjective Subjective Remarks Tmax 99.9 overnight. Patient more alert and clear today. Continues to have pain and hesitation with moving the left knee. Objective Data Date Time Temp Pulse Resp B/P (MAP) Pulse Ox O2 Delivery O2 Flow Rate FiO2 06/10/17 04:10 72 06/10/17 00:11 77 06/10/17 00:00 99.9 72 20 129/67 (87) 96 06/09/17 23:31 76 06/09/17 20:00 98.0 73 22 139/65 (89) 98 06/09/17 16:00 97.5 63 18 141/67 (91) 98 06/09/17 14:56 98.3 72 18 147/65 99 06/09/17 12:00 98.2 69 14 145/67 (93) 98 06/10/17 06/10/17 06/10/17 07:00 15:00 23:00 Intake Total 240 ml Output Total 2440 ml Balance -2200 ml Result Diagram: 06/10/17 0550 06/10/17 0550 Laboratory Results Laboratory Tests Test 06/10/17 05:50 White Blood Count 0.2 TH/MM3 Red Blood Count 2.72 MIL/MM3 Hemoglobin 7.9 GM/DL Hematocrit 23.3 % Mean Corpuscular Volume 85.9 FL Mean Corpuscular Hemoglobin 29.2 PG Mean Corpuscular Hemoglobin Concent 34.0 % Red Cell Distribution Width 15.4 % Platelet Count 28 TH/MM3 Mean Platelet Volume 7.9 FL CBC Comment AUTO DIFF Differential Total Cells Counted 25 Neutrophils % (Manual) 12 % Band Neutrophils % 4 % Lymphocytes % 84 % Neutrophils # (Manual) 0.0 TH/MM3 Differential Comment FINAL DIFF MANUAL Platelet Estimate LOW Platelet Morphology Comment NORMAL Red Cell Morphology Comment NORMAL Prothrombin Time 16.1 SEC Prothromb Time International Ratio 1.4 RATIO Activated Partial Thromboplast Time 35.7 SEC Fibrinogen 571 mg/dL Blood Urea Nitrogen 11 MG/DL Creatinine 0.78 MG/DL Random Glucose 154 MG/DL Total Protein 6.3 GM/DL Albumin 1.9 GM/DL Calcium Level 8.3 MG/DL Alkaline Phosphatase 63 U/L Aspartate Amino Transf (AST/SGOT) 12 U/L Alanine Aminotransferase (ALT/SGPT) 28 U/L Total Bilirubin 1.0 MG/DL Sodium Level 142 MEQ/L Potassium Level 3.3 MEQ/L Chloride Level 108 MEQ/L Carbon Dioxide Level 28.2 MEQ/L Anion Gap 6 MEQ/L Estimat Glomerular Filtration Rate 98 ML/MIN Phosphorus Level 1.8 MG/DL Magnesium Level 1.9 MG/DL Culture Results Microbiology Date/Time Source Procedure Growth Status 06/09/17 11:27 Blood Peripheral Aerobic Blood Culture Pending Received 06/09/17 11:27 Blood Peripheral Anaerobic Blood Culture Pending Received 06/09/17 11:22 Blood Line Aerobic Blood Culture Pending Received 06/09/17 11:22 Blood Line Anaerobic Blood Culture Pending Received 06/07/17 11:15 Fluid Synovial Fluid Gram Stain - Final Complete 06/07/17 11:15 Fluid Synovial Fluid Body Fluid Culture - Final NO GROWTH IN 72 HRS.--AEROBICALLY OR ... Complete Administered Medications Medications (Trade) Dose Ordered Sig/Ivelisse Route PRN Reason Start Time Stop Time Status Last Admin Dose Admin Acetaminophen (Tylenol) 650 mg Q4H PRN PO fever>100.4 05/15/17 13:00 06/07/17 21:51 Citalopram Hydrobromide (CeleXA) 20 mg DAILY PO 05/16/17 09:00 06/10/17 08:15 Pantoprazole Sodium (Protonix) 20 mg DAILY PO 05/16/17 09:00 06/10/17 08:15 Ondansetron HCl (Zofran Inj) 4 mg Q6HR PRN IV PUSH nausea 05/15/17 14:00 05/16/17 10:30 Sodium Chloride (NS Flush) 5 ml UNSCH PRN IVF SEE PROTOCOL 05/15/17 15:00 06/09/17 10:14 Sodium Chloride (NS Flush) UNSCH PRN IVF SEE PROTOCOL 05/15/17 18:45 06/06/17 03:22 Trimethoprim/ Sulfamethoxazole (Bactrim Ds 800-160 Mg) 1 tab MoWeFr@09 PO 05/16/17 09:00 Future Hold 05/25/17 08:37 Fluconazole (Diflucan) 100 mg DAILY PO 05/16/17 09:00 06/10/17 08:15 Multi-Ingredient Mouthwash/Gargle (Magic Mouthwash Adult Liq) 5 ml QID SWISH-SWAL 05/16/17 13:00 06/10/17 08:14 Megestrol Acetate (Megace Liq) 300 mg DAILY PO 05/16/17 14:00 06/10/17 08:15 Magnesium Hydroxide (Milk Of Magnesia Liq) 30 ml DAILY PRN PO CONSTIPATION 05/21/17 11:30 06/06/17 13:20 Vancomycin HCl 1500 mg/Sodium Chloride 515 ml @ 250 mls/hr Q12H IV 05/26/17 08:00 06/10/17 08:14 Sodium Chloride 1,000 ml @ 42 mls/hr [id number] IV 06/01/17 15:00 06/08/17 20:07 Tramadol HCl (Ultram) 25 mg Q6H PRN PO PAIN 06/03/17 06:45 Future Hold 06/06/17 03:37 Cefepime HCl 2000 mg/Sodium Chloride 100 ml @ 200 mls/hr Q8H IV 06/06/17 02:00 06/10/17 09:36 Alprazolam (Xanax) 0.25 mg Q8H PRN PO anxiety 06/06/17 10:15 Future Hold 06/08/17 02:39 Potassium Chloride (KCl) 30 meq DAILY PO 06/08/17 12:00 06/10/17 08:15 Micafungin Sodium 150 mg/Sodium Chloride 100 ml @ 100 mls/hr Q24H IV 06/08/17 18:00 06/09/17 16:32 Diphenhydramine HCl (Benadryl) 25 mg Q4H PRN PO SEE LABEL COMMENTS 06/09/17 14:30 06/09/17 14:29 Multivitamins 10 ml/Folic Acid 1 mg/Amino Acids/ Electrolytes/ Dextrose 1,010.2 ml @ 42 mls/hr Q24H IV-CENTRAL 06/09/17 20:00 06/09/17 22:07 Fat Emulsion Intravenous 250 ml @ 10 mls/hr Q24H IV-CENTRAL 06/09/17 20:00 06/09/17 22:07 Objective Remarks GENERAL: Elderly male upright in bed in nad. SKIN: Warm and dry. HEAD: Normocephalic. EYES: No injection or drainage. NECK: Supple, trachea midline. CARDIOVASCULAR: Regular rate and rhythm RESPIRATORY: anterior campo clear. GASTROINTESTINAL: Abdomen soft, non-tender, nondistended. EXTREMITIES: No cyanosis. Left knee with edema. NEUROLOGICAL: awake and alert, normal speech. Assessment/Plan Problem List: (1) AML (acute myeloblastic leukemia) ICD Codes: C92.00 - Acute myeloblastic leukemia, not having achieved remission Plan: 05/15/17: Admission. given Hydrea. [facility] performed Leukapheresis bringing WBC from >100K to 44K. 05/16/17: D1. SONIA-C + Maria Del Rosario. 1 unit pRBC 05/17/17: D2. no transfusion. tolerating chemo 05/18/17: D3. no transfusion. 05/19/17: D4. 1 unit platelets today. No evidence of tumor lysis. Pt finished idarubicin yesterday. Continue SONIA-C. 05/20/17 D5: 1 unit platelets, 2 units PRBC's today. Will add on xanax prn and 1mg xanax at HS scheduled. Continue chemo, continue to monitor blood counts. 05/21/17.D6: No transfusion, start lactulose for Bm, continue chemo 05/22/17:D7 05/23/17: D8: Pt to have final bag chemo hung tonight. Transfuse 1 unit irradiated platelets, 1 unit irradiated PRBC's today. 05/24/17: D9: We'll transfuse 1 unit irradiated packed red blood cells today for hemoglobin of 6.9 05/25/17: D10. transfuse 1 unit platelets. pain in left knee and right shoulder. swelling in left knee. 05/26/17: D11. 1 unit platelets, 1 unit pRBC. 05/27/17: D12. 1 unit pRBC. 05/28/17: D13. no transfusion 05/29/17: D14. 1 unit pRBC 05/30/17: D15. 1 unit platelets 05/31/17: D16. 1 unit pRBC 06/01/17: D17: 1 unit platelets. repeat bone marrow biopsy 06/02/17: D18 1 unit PRBC 06/03/17: D19 No transfusion 06/04/17: D20. 1 unit platelets. waiting on pathology 06/05/17: D21. no events 06/06/17: D22. Transfuse 1 unit PRBC's, 1 unit platelets. 06/07/17: D23. Transfuse one unit packed cells, 1 unit platelets. 06/08/17: D24. 1 unit pRBC 06/09/17: D25. remains confused. 1 unit platelets. vitamin K 5mg x 1 06/10/17: D26. coags somewhat improved. 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 --He presented with hyperleukocytosis and acute blast crises. (2) Pancytopenia ICD Codes: D61.818 - Other pancytopenia Status: Acute Plan: --transfuse him for hemoglobin of 7 or less. -- irradiated/CMV-negative blood products. --transfuse for platelet count of 10 or less. --Diflucan 100mg daily, Acyclovir 400mg PO BID (3) Coagulopathy ICD Codes: D68.9 - Coagulation defect, unspecified Status: Acute Plan: --monitor coags, fibrinogen, LDH and haptoglobin (4) Swelling of left knee joint ICD Codes: M25.462 - Effusion, left knee Plan: --diff dx includes but is not limited to gout vs pseudogout, vs. hemarthrosis vs. septic joint vs. arthritis. --MRI of knee shows joint effusion, unable to tap until counts recover --on abx. ID following. --ortho saw patient on 05/30 and recommends medical management, close observation and intervention if symptoms worsen (5) Sepsis ICD Codes: A41.9 - Sepsis, unspecified organism Plan: --ID following --BC on 05/28 showed no growth --+BC, 05/26--GPC (6) Protein-calorie malnutrition, moderate ICD Codes: E44.0 - Moderate protein-calorie malnutrition Status: Acute Plan: -started on TPN on 06/09 Assessment 72y/o male with acute myeloid leukemia with blast crisis. 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 Plan 1. continue antibiotics 2. continue TPN. stop IVF Attending Statement The exam, history, and the medical decision-making described in the above note were completed with the assistance of the mid-level provider. I reviewed and agree with the findings presented. I attest that I had a [id number] encounter with the patient on the same day, and personally performed and documented my assessment and findings in the medical record. TPN ongoing---Start increasing rate to max of 90 cc/hr LP tomorrow if confusion continues 2 D echo Chest X-ray ---> chf I&Os slight negative balance no blood products today replace phosp PT to resume in am encourage oral intake d/w rn o/n events reviewed Problem Qualifiers (1) AML (acute myeloblastic leukemia): Qualified Codes: C92.00 - Acute myeloblastic leukemia, not having achieved remission Oma Chavze Jun 10, 2017 10:07 Shar Ibanez MD Jun 10, 2017 11:43
[2017-06-10] MEDS ORDERED: PHYTONADIONE 5 MG TAB PO ONE (12:15)
[2017-06-10] MEDS ORDERED: POTASSIUM PHOSPHATE MONOBASIC 500 MG TAB PO ONE (13:15)
--- NOTE | 2017-06-10 14:16 | ECHRPT ---
Indication: cardimyopathy CONCLUSIONS Limited study for LVEF: The left ventricular systolic function is low normal with an estimated ejection fraction in the rang e of 50- 55%. Normal left ventricular size. Mild concentric left ventricular hypertrophy. No regional wall motion abnormalities are present. BP: / HR: Rhythm: Sinus Technical Quality:Good FINDINGS LEFT VENTRICLE The left ventricular systolic function is low normal with an estimated ejection fraction in the rang e of 50- 55%. Normal left ventricular size. Mild concentric left ventricular hypertrophy. No regional wall motion abnormalities are present. Ton Ruiz MD (Electronically Signed) Final Date:10 June 2017 14:16
--- NOTE | 2017-06-10 16:38 | HHI.PR ---
Subjective Remarks resting in bed Drowsy Random conversation about people being in the room with him, may be draining Left knee joint pain, states a little less painful today (Marcie Summers) Objective Objective Results - Vital Signs Date Time Temp Pulse Resp B/P (MAP) Pulse Ox O2 Delivery O2 Flow Rate FiO2 06/10/17 13:27 96.7 63 18 141/75 (97) 98 06/10/17 04:10 72 06/10/17 00:11 77 06/10/17 00:00 99.9 72 20 129/67 (87) 96 06/09/17 23:31 76 06/09/17 20:00 98.0 73 22 139/65 (89) 98 I/O 06/09/17 06/09/17 06/09/17 06/10/17 06/10/17 06/10/17 07:00 15:00 23:00 07:00 15:00 23:00 Intake Total 930 ml 550 ml 240 ml Output Total 750 ml 475 ml 2440 ml 200 ml Balance 180 ml 75 ml -2200 ml -200 ml Intake Oral 480 ml 296 ml 240 ml Packed Cells 400 ml Platelets 254 ml Blood Product IV Normal Saline Flush 50 ml Output Urine Total 750 ml 475 ml 2440 ml 200 ml # Voids 2 3 1 # Bowel Movements 1 2 1 (Marcie Summers) Result Diagram: 06/10/17 0550 06/10/17 0550 ROS General: Other (limited ROS, still confused) (Marcie Summers) Physical Exam Physical Exam PHYSICAL EXAMINATION GENERAL: This is a well-developed, well-nourished male who appears to be in no acute distress. He is alert and awake, []. HEAD: Normocephalic without any lesion or mass noted. Facial features appear symmetric. OROPHARYNGEAL: Oropharynx without erythema or edema. NECK: Supple. No nuchal rigidity or lymphadenopathy. Trachea midline without deviation. CARDIAC: Regular rhythm, regular rate, S1 and S2 are heard. Murmur []; no gallops or rubs. LUNGS: Clear to auscultation bilaterally. [] wheeze, [] rhonchi or [] rale. No use of accessory muscles on inspiration or expiration. ABDOMEN: Soft, nontender, no organomegaly or masses. Bowel sounds are heard in all four quadrants. No rebound. No guarding. EXTREMITIES: [] edema. Pulses equal bilateral. [] cyanosis. NEUROLOGICAL: Patient mood and affect appropriate. No focal deficit SKIN:Warm and moist (Marcie Summers) A/P Assessment and Plan low grade fever, <100. labs mild improvement, now receiving hyperal and lipids, hypokalemia treated with potassium phosphate Acute myeloblastic leukemia, monitor labs, cbc, coags mild improvement Pancytopenia, appreciate oncology input. management with Bactrim Levaquin Diflucan and acyclovir completed chemo 05/23, CT guided bone marrow bx 06/01, results back. Coagulopathy, Monitor for bleeding, slow gradual improvement History of GERD [place] esophagus, stable, voice raspy, minimal appetite, now receiving IV nutrition hyperal and lipids -Continue Protonix 20 mg by mouth daily Anxiety and depression, waxes and wans, now complicated with AMS, still drowsy and carries on with conversation which is probably some of his dreaming Sleeping a lot metabolic encephalopathy, minimal slow gradual improvement Left knee and right shoulder pain, -MRI left knee noted, joint effusion, lt knee aspiration 06/07,specimen labs pending, ID input appreciated , Cefepime and Vancomycin IV continue , positive blood cultures 05/26/17 States left knee pain mild improvement today, encouraged to be up with physical therapy Right arm swelling, positive for DVT cephalic vein, less edema, slow gradual improvement encourage him continue to elevate PT and OT to increase mobility, Daily order now to maintain strength., Extremely weak and limited movement secondary to left knee effusion Not ready for DC yet. Condition guarded D/W RN D/W pt, D/W Dr. Obrien, seen on his behalf (Marcie Summers) Assessment and Plan pt is seen & examined d/w pt d/w marcie mauerr above cont current tx will f/u (Lydia Obrien MD) Marcie Summers Jun 10, 2017 16:38 Lydia Obrien MD Jun 10, 2017 20:05
[2017-06-10] MEDS: MICAFUNGIN INJ 150 MG in SODIUM CHLORIDE 0.9% INJ 100 ML IV SCH (17:06)
[2017-06-10] MEDS: ACETAMINOPHEN 325 MG TAB PO PRN ×2 (17:06→23:36)
[2017-06-10] MEDS: FAT EMULSION 20% INJ 250 ML (@10 mls/hr) IV-CENTRAL SCH (21:35)
[2017-06-10] MEDS: CLINIMIX E 4.25/25 1000 mL- </= 42 mls/hr IV-CENTRAL SCH ×3 (21:35)
[2017-06-11] VITALS (9 sets, daily range): BP systolic 124–142; BP diastolic 58–81; PULSE 77–100; RESP 16–20; TEMP 97.4–101; O2SAT 95–98
[2017-06-11] MEDS: CEFEPIME INJ 2,000 MG in SODIUM CHLORIDE 0.9% INJ 100 ML IV SCH ×3 (02:27→17:33)
[2017-06-11 06:26] LABS: ALKALINE PHOSPHATASE 71 U/L (45-117); ALT (GPT) 53 U/L (12-78); ANION GAP 6 MEQ/L (5-15); AST (GOT) 30 U/L (15-37); BICARBONATE 26.6 MEQ/L (21.0-32.0); BLOOD UREA NITROGEN 12 MG/DL (7-18); CHLORIDE 106 MEQ/L (98-107); GLOMERULAR FILTRATION RATE 90 ML/MIN (>89); POTASSIUM 3.5 MEQ/L (3.5-5.1); SODIUM (NA) 139 MEQ/L (136-145); TOTAL BILIRUBIN ADULT 1.2 MG/DL (0.2-1.0)
[2017-06-11 06:59] LABS: APTT (PATIENT) 33.4 SEC (24.3-30.1); INTERNATIONAL NORMALIZED RATIO 1.4 RATIO; PROTHROMBIN TIME - PATIENT 16.1 SEC (9.8-11.6)
[2017-06-11] MEDS: FLUCONAZOLE 100 MG TAB PO SCH (08:36)
[2017-06-11] MEDS: PANTOPRAZOLE SOD 20 MG DELAYED RELEASE TAB PO SCH (08:36)
[2017-06-11] MEDS: POTASSIUM CHLORIDE 10 MEQ CONTROLLED RELEASE TAB PO SCH (08:36)
[2017-06-11] MEDS: CITALOPRAM HYDROBROMIDE 20 MG TAB PO SCH (08:36)
[2017-06-11] MEDS: MEGESTROL ACETATE SUSP 400 MG/10 ML CUP PO SCH (08:36)
[2017-06-11] MEDS: NYSTAT/DIPHENHY/LIDO MOUTHWASH (Adult) 120ML SWISH-SWAL SCH ×4 (08:37→21:00)
[2017-06-11] MEDS: SODIUM CHLORIDE 0.9% FLUSH 10 ML FLUSH IVF PRN (08:44)
[2017-06-11] MEDS: VANCOMYCIN INJ 1,500 MG in SODIUM CHLORID 0.9% 500 ML INJ 500 ML IV SCH ×2 (08:45→21:47)
[2017-06-11] MEDS: ACETAMINOPHEN 325 MG TAB PO PRN ×2 (09:46→21:59)
[2017-06-11 10:40] LABS: MEAN CELL VOLUME 86.1 FL (80.0-100.0); MEAN CORPUSCULAR HEMOGLOBIN 28.8 PG (27.0-34.0); MEAN CORPUSCULAR HGB CONC 33.5 % (32.0-36.0); RED BLOOD COUNT 2.67 MIL/MM3 (4.50-5.90); RED CELL DISTRIBUTION WIDTH 15.3 % (11.6-17.2); WHITE BLOOD COUNT 0.2 TH/MM3 (4.0-11.0)
[2017-06-11 10:46] LABS: HEMO FLAGS AUTO DIFF
[2017-06-11 10:48] LABS: PLATELET COUNT 16 TH/MM3 (150-450)
--- NOTE | 2017-06-11 10:52 | PD.ONC.PN ---
Subjective Subjective Remarks Tmax 101F overnight. Patient resting in bed in nad. Says he slept well last night. Objective Data Date Time Temp Pulse Resp B/P (MAP) Pulse Ox O2 Delivery O2 Flow Rate FiO2 06/11/17 09:00 100.4 83 20 133/64 (87) 95 06/11/17 04:00 99.9 79 17 127/71 (89) 97 06/11/17 00:36 16 06/11/17 00:18 82 06/11/17 00:00 101.0 78 16 124/71 (88) 95 06/10/17 20:04 79 06/10/17 20:00 99.7 77 18 141/76 (97) 100 06/10/17 16:00 100.7 83 18 146/73 (97) 95 06/10/17 13:27 96.7 63 18 141/75 (97) 98 06/11/17 06/11/17 06/11/17 07:00 15:00 23:00 Intake Total 240 ml Output Total 320 ml 800 ml Balance -80 ml -800 ml Result Diagram: 06/11/17 0950 06/11/17 0525 Laboratory Results Laboratory Tests Test 06/11/17 05:25 06/11/17 09:50 Prothrombin Time 16.1 SEC Prothromb Time International Ratio 1.4 RATIO Activated Partial Thromboplast Time 33.4 SEC Fibrinogen 579 mg/dL Blood Urea Nitrogen 12 MG/DL Creatinine 0.84 MG/DL Random Glucose 123 MG/DL Total Protein 6.2 GM/DL Albumin 1.8 GM/DL Calcium Level 8.3 MG/DL Alkaline Phosphatase 71 U/L Aspartate Amino Transf (AST/SGOT) 30 U/L Alanine Aminotransferase (ALT/SGPT) 53 U/L Total Bilirubin 1.2 MG/DL Sodium Level 139 MEQ/L Potassium Level 3.5 MEQ/L Chloride Level 106 MEQ/L Carbon Dioxide Level 26.6 MEQ/L Anion Gap 6 MEQ/L Estimat Glomerular Filtration Rate 90 ML/MIN White Blood Count 0.2 TH/MM3 Red Blood Count 2.67 MIL/MM3 Hemoglobin 7.7 GM/DL Hematocrit 23.0 % Mean Corpuscular Volume 86.1 FL Mean Corpuscular Hemoglobin 28.8 PG Mean Corpuscular Hemoglobin Concent 33.5 % Red Cell Distribution Width 15.3 % Platelet Count 16 TH/MM3 Mean Platelet Volume 7.5 FL CBC Comment AUTO DIFF Culture Results Microbiology Date/Time Source Procedure Growth Status 06/09/17 11:27 Blood Peripheral Aerobic Blood Culture - Preliminary NO GROWTH IN 1 DAY Resulted 06/09/17 11:27 Blood Peripheral Anaerobic Blood Culture - Preliminary NO GROWTH IN 1 DAY Resulted 06/09/17 11:22 Blood Line Aerobic Blood Culture - Preliminary NO GROWTH IN 1 DAY Resulted 06/09/17 11:22 Blood Line Anaerobic Blood Culture - Preliminary NO GROWTH IN 1 DAY Resulted Administered Medications Medications (Trade) Dose Ordered Sig/Ivelisse Route PRN Reason Start Time Stop Time Status Last Admin Dose Admin Acetaminophen (Tylenol) 650 mg Q4H PRN PO fever>100.4 05/15/17 13:00 06/11/17 09:46 Citalopram Hydrobromide (CeleXA) 20 mg DAILY PO 05/16/17 09:00 06/11/17 08:36 Pantoprazole Sodium (Protonix) 20 mg DAILY PO 05/16/17 09:00 06/11/17 08:36 Ondansetron HCl (Zofran Inj) 4 mg Q6HR PRN IV PUSH nausea 05/15/17 14:00 05/16/17 10:30 Sodium Chloride (NS Flush) 5 ml UNSCH PRN IVF SEE PROTOCOL 05/15/17 15:00 06/11/17 08:44 Sodium Chloride (NS Flush) UNSCH PRN IVF SEE PROTOCOL 05/15/17 18:45 06/06/17 03:22 Trimethoprim/ Sulfamethoxazole (Bactrim Ds 800-160 Mg) 1 tab MoWeFr@09 PO 05/16/17 09:00 Future Hold 05/25/17 08:37 Fluconazole (Diflucan) 100 mg DAILY PO 05/16/17 09:00 06/11/17 08:36 Multi-Ingredient Mouthwash/Gargle (Magic Mouthwash Adult Liq) 5 ml QID SWISH-SWAL 05/16/17 13:00 06/11/17 08:37 Megestrol Acetate (Megace Liq) 300 mg DAILY PO 05/16/17 14:00 06/11/17 08:36 Magnesium Hydroxide (Milk Of Magnesia Liq) 30 ml DAILY PRN PO CONSTIPATION 05/21/17 11:30 06/06/17 13:20 Vancomycin HCl 1500 mg/Sodium Chloride 515 ml @ 250 mls/hr Q12H IV 05/26/17 08:00 06/11/17 08:45 Tramadol HCl (Ultram) 25 mg Q6H PRN PO PAIN 06/03/17 06:45 Future Hold 06/06/17 03:37 Cefepime HCl 2000 mg/Sodium Chloride 100 ml @ 200 mls/hr Q8H IV 06/06/17 02:00 06/11/17 08:58 Alprazolam (Xanax) 0.25 mg Q8H PRN PO anxiety 06/06/17 10:15 Future Hold 06/08/17 02:39 Potassium Chloride (KCl) 30 meq DAILY PO 06/08/17 12:00 06/11/17 08:36 Micafungin Sodium 150 mg/Sodium Chloride 100 ml @ 100 mls/hr Q24H IV 06/08/17 18:00 06/10/17 17:06 Diphenhydramine HCl (Benadryl) 25 mg Q4H PRN PO SEE LABEL COMMENTS 06/09/17 14:30 06/09/17 14:29 Multivitamins 10 ml/Folic Acid 1 mg/Amino Acids/ Electrolytes/ Dextrose 1,010.2 ml @ 42 mls/hr Q24H IV-CENTRAL 06/09/17 20:00 06/10/17 21:35 Fat Emulsion Intravenous 250 ml @ 10 mls/hr Q24H IV-CENTRAL 06/09/17 20:00 06/10/17 21:35 Objective Remarks GENERAL: Elderly male sitting up in bed in [facility]. SKIN: Warm and dry. HEAD: Normocephalic. EYES: No injection or drainage. NECK: Supple, trachea midline. CARDIOVASCULAR: Regular rate and rhythm RESPIRATORY: anterior campo clear. GASTROINTESTINAL: Abdomen soft, non-tender, nondistended. EXTREMITIES: No cyanosis. Left knee edematous. yudi wrap in place. NEUROLOGICAL: awake. normal speech. answers questions appropriately. Assessment/Plan Problem List: (1) AML (acute myeloblastic leukemia) ICD Codes: C92.00 - Acute myeloblastic leukemia, not having achieved remission Plan: 05/15/17: Admission. given Hydrea. [facility] performed Leukapheresis bringing WBC from >100K to 44K. 05/16/17: D1. SONIA-C + [facility]. 1 unit pRBC 05/17/17: D2. no transfusion. tolerating chemo 05/18/17: D3. no transfusion. 05/19/17: D4. 1 unit platelets today. No evidence of tumor lysis. Pt finished idarubicin yesterday. Continue SONIA-C. 05/20/17 D5: 1 unit platelets, 2 units PRBC's today. Will add on xanax prn and 1mg xanax at HS scheduled. Continue chemo, continue to monitor blood counts. 05/21/17.D6: No transfusion, start lactulose for Bm, continue chemo 05/22/17:D7 05/23/17: D8: Pt to have final bag chemo hung tonight. Transfuse 1 unit irradiated platelets, 1 unit irradiated PRBC's today. 05/24/17: D9: We'll transfuse 1 unit irradiated packed red blood cells today for hemoglobin of 6.9 05/25/17: D10. transfuse 1 unit platelets. pain in left knee and right shoulder. swelling in left knee. 05/26/17: D11. 1 unit platelets, 1 unit pRBC. 05/27/17: D12. 1 unit pRBC. 05/28/17: D13. no transfusion 05/29/17: D14. 1 unit pRBC 05/30/17: D15. 1 unit platelets 05/31/17: D16. 1 unit pRBC 06/01/17: D17: 1 unit platelets. repeat bone marrow biopsy 06/02/17: D18 1 unit PRBC 06/03/17: D19 No transfusion 06/04/17: D20. 1 unit platelets. waiting on pathology 06/05/17: D21. no events 06/06/17: D22. Transfuse 1 unit PRBC's, 1 unit platelets. 06/07/17: D23. Transfuse one unit packed cells, 1 unit platelets. 06/08/17: D24. 1 unit pRBC 06/09/17: D25. remains confused. 1 unit platelets. vitamin K 5mg x 1 06/10/17: D26. coags somewhat improved. Vitamin K2.5mg x 1 06/11/17: D27. no transfusion. monitor coags. 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 --He presented with hyperleukocytosis and acute blast crises. (2) Pancytopenia ICD Codes: D61.818 - Other pancytopenia Status: Acute Plan: --transfuse him for hemoglobin of 7 or less. -- irradiated/CMV-negative blood products. --transfuse for platelet count of 10 or less. --Diflucan 100mg daily, Acyclovir 400mg PO BID (3) Coagulopathy ICD Codes: D68.9 - Coagulation defect, unspecified Status: Acute Plan: --monitor coags, fibrinogen, LDH and haptoglobin (4) Swelling of left knee joint ICD Codes: M25.462 - Effusion, left knee Plan: --diff dx includes but is not limited to gout vs pseudogout, vs. hemarthrosis vs. septic joint vs. arthritis. --MRI of knee shows joint effusion, unable to tap until counts recover --on abx. ID following. --ortho saw patient on 05/30 and recommends medical management, close observation and intervention if symptoms worsen (5) Sepsis ICD Codes: A41.9 - Sepsis, unspecified organism Plan: --ID following --BC on 06/09 showed no growth --+BC, 05/26--GPC --on Cefepime, Vanco and Micafungin (6) Protein-calorie malnutrition, moderate ICD Codes: E44.0 - Moderate protein-calorie malnutrition Status: Acute Plan: -started on TPN on 06/09 Assessment 72y/o male with acute myeloid leukemia with blast crisis. 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 Plan 1. monitor coags 2. continue TPN 3. monitor CBC 4. Patient has a bag of HLA matched platelets expiring tonight. will give today. Attending Statement The exam, history, and the medical decision-making described in the above note were completed with the assistance of the mid-level provider. I reviewed and agree with the findings presented. I attest that I had a [id number] encounter with the patient on the same day, and personally performed and documented my assessment and findings in the medical record. High risk AML more awake and alert today had fever/blood cultures drawn on Vanc/Cefepime and Micafungin--will d/c diflucan Transfuse platelets 2D echo pending positive fluid balance--Lasix 20 mg X 1 TPN on going --increase rate to 60 cc Remains severely neutropenic MRD 2% based on flow knee swelling improving--s/p arthrocentesis--gram stain negative/culture no growth// bloody tap very difficult situation focus on Nutrition and PT d/w rn o/n events reviewed Problem Qualifiers (1) AML (acute myeloblastic leukemia): Qualified Codes: C92.00 - Acute myeloblastic leukemia, not having achieved remission Oma Chavez Jun 11, 2017 10:52 Shar Ibanez MD Jun 11, 2017 21:47
[2017-06-11 10:58] LABS: ALT (GPT) 51 U/L (12-78); ANION GAP 5 MEQ/L (5-15); AST (GOT) 21 U/L (15-37); BICARBONATE 28.9 MEQ/L (21.0-32.0); BLOOD UREA NITROGEN 11 MG/DL (7-18); CHLORIDE 104 MEQ/L (98-107); GLOMERULAR FILTRATION RATE 111 ML/MIN (>89); MAGNESIUM 1.8 MG/DL (1.5-2.5); POTASSIUM 3.5 MEQ/L (3.5-5.1); SODIUM (NA) 138 MEQ/L (136-145)
[2017-06-11 10:59] LABS: ALKALINE PHOSPHATASE 72 U/L (45-117); TOTAL BILIRUBIN ADULT 1.4 MG/DL (0.2-1.0)
[2017-06-11] MEDS ORDERED: SODIUM CHLOR 0.9% 250 ML INJ 250 ML IV ONE (11:30)
[2017-06-11] MEDS ORDERED: FUROSEMIDE 20 MG/2 ML VIAL IV PUSH ONE (11:30)
--- NOTE | 2017-06-11 11:30 | PD.ORT.PN ---
Subjective Subjective Remarks Sitting at bedside commode. States that pain in knee has continued to improve slightly Objective Vitals Vital Signs Date Time Temp Pulse Resp B/P (MAP) Pulse Ox O2 Delivery O2 Flow Rate FiO2 06/11/17 09:00 100.4 83 20 133/64 (87) 95 06/11/17 04:00 99.9 79 17 127/71 (89) 97 06/11/17 00:36 16 06/11/17 00:18 82 06/11/17 00:00 101.0 78 16 124/71 (88) 95 06/10/17 20:04 79 06/10/17 20:00 99.7 77 18 141/76 (97) 100 06/10/17 16:00 100.7 83 18 146/73 (97) 95 06/10/17 13:27 96.7 63 18 141/75 (97) 98 I/O 06/10/17 06/10/17 06/10/17 06/11/17 06/11/17 06/11/17 07:00 15:00 23:00 07:00 15:00 23:00 Intake Total 240 ml 360 ml 240 ml 3345 ml Output Total 2440 ml 200 ml 500 ml 320 ml 800 ml Balance -2200 ml -200 ml -140 ml -80 ml 2545 ml Intake Oral 240 ml 360 ml 240 ml IV Total 3345 ml Output Urine Total 2440 ml 200 ml 500 ml 320 ml 800 ml # Voids 1 2 # Bowel Movements 1 Result Diagram: 06/11/17 0950 06/11/17 0950 Other Results Laboratory Tests Test 06/11/17 05:25 Prothromb Time International Ratio 1.4 RATIO Prothrombin Time 16.1 SEC (9.8-11.6) Imaging Last 24 hours Impressions Chest X-Ray 06/06/17 0049 Signed Impressions: Service Date/Time: Tuesday, June 06, 2017 01:25 - CONCLUSION: 1. Mild basilar atelectasis. [id number] in superior vena cava. Shravan Saldaña MD Objective Remarks Left lower extremity: No pain with hip range of motion. Moderate swelling of knee with range of motion minimal. Clean dry dressings intact with compression dressing. Swelling is continued to improve. He is 5 short of extension and is only able to flex approximately 20. Mild tenderness to palpation surrounding the knee. There is no erythema or drainage. Distally he has intact sensation good capillary refills. Assessment & Plan Assessment and Plan Left knee joint effusion with osteoarthritis Laboratory results do not show infection at this time. We will continue to follow cultures. No organisms were seen on Gram stain and crystals were negative. Continue to use compressive dressing to help avoid continued swelling at this time. Ice and elevate to help decrease swelling. Physical therapy to work on range of motion of the knee and he will be weightbearing as tolerated Unless there is a change in swelling or symptoms no further orthopedic follow- up needed at this time Dhruv Osorio Jr. Jun 11, 2017 11:30
[2017-06-11 12:01] LABS: BANDS 5 % (0-6); POLYS (SEG NEUTROPHILS) 5 % (16-70); TOXIC GRANULATION 3+ (NORMAL); WBC DIFF SAMPLE 20
[2017-06-11 12:02] LABS: PLATELET ESTIMATE SMEAR LOW (NORMAL); PLATELET MORPHOLOGY NORMAL (NORMAL); SCAN/DIFF FINAL DIFF MANUAL
--- NOTE | 2017-06-11 14:05 | RADRPT ---
EXAM DATE/TIME: 06/11/2017 13:36 [facility] COMPARISON: CHEST SINGLE AP, June 10, 2017, 8:03. INDICATIONS : Cough and shortness of breath. MEDICAL HISTORY : Hiatal hernia. Arthritis. Leukemia, Herniated discs. Blood dyscrasias. SURGICAL HISTORY : Cholecystectomy. Lithotripsy. Chemotherapy, Infusaport ENCOUNTER: Subsequent ACUITY: 2 days PAIN SCORE: 0/10 LOCATION: Bilateral chest FINDINGS: There is a right IJ [id number] in place. Redemonstration of mild left lower lobe airspace disease and likely trace pleural effusion. The cardiac silhouette is mildly enlarged with slight prominence o f the central pulmonary vascularity. Remainder of the exam is unchanged. CONCLUSION: 1. Stable mild left lower lobe airspace disease and likely trace pleural effusion. 2. Mild cardiomegaly with slight positive fluid balance. Yunier Lange MD on June 11, 2017 at 14:00 Board Certified Radiologist. This report was verified electronically.
--- NOTE | 2017-06-11 16:04 | HHI.PR ---
Subjective History of Present Illness pt started spiking temp again Resting in bed I am okay No significant cough, no sputum production No nausea or vomiting Appetite so-so Left knee swelling remains, pain in control Denies abdominal pain No diarrhea No dysuria Offers no other complaints Review of Systems Constitutional Constitutional: Fatigue (easily), Weakness (generalized mild) Musculoskeletal MS: Weakness (minimal generalized) Psychiatric Psychiatric: Normal Mood, Anxiety (insomnia) Vitals/Results Intake & Output 06/11/17 06/11/17 06/12/17 15:00 23:00 07:00 Intake Total 3345 ml Output Total 800 ml Balance 2545 ml IV Total 3345 ml Output Urine Total 800 ml Vital Signs Vital Signs Date Time Temp Pulse Resp B/P (MAP) Pulse Ox O2 Delivery O2 Flow Rate FiO2 06/11/17 14:00 97.4 100 18 124/69 (87) 97 06/11/17 09:00 100.4 83 20 133/64 (87) 95 06/11/17 04:00 99.9 79 17 127/71 (89) 97 06/11/17 00:36 16 06/11/17 00:18 82 06/11/17 00:00 101.0 78 16 124/71 (88) 95 06/10/17 20:04 79 06/10/17 20:00 99.7 77 18 141/76 (97) 100 CBC/BMP: 06/11/17 0950 06/11/17 0950 Lab Results Laboratory Tests Test 06/11/17 05:25 06/11/17 09:50 Prothrombin Time 16.1 SEC Prothromb Time International Ratio 1.4 RATIO Activated Partial Thromboplast Time 33.4 SEC Fibrinogen 579 mg/dL Blood Urea Nitrogen 12 MG/DL 11 MG/DL Creatinine 0.84 MG/DL 0.70 MG/DL Random Glucose 123 MG/DL 103 MG/DL Total Protein 6.2 GM/DL 6.3 GM/DL Albumin 1.8 GM/DL 1.8 GM/DL Calcium Level 8.3 MG/DL 8.0 MG/DL Alkaline Phosphatase 71 U/L 72 U/L Aspartate Amino Transf (AST/SGOT) 30 U/L 21 U/L Alanine Aminotransferase (ALT/SGPT) 53 U/L 51 U/L Total Bilirubin 1.2 MG/DL 1.4 MG/DL Sodium Level 139 MEQ/L 138 MEQ/L Potassium Level 3.5 MEQ/L 3.5 MEQ/L Chloride Level 106 MEQ/L 104 MEQ/L Carbon Dioxide Level 26.6 MEQ/L 28.9 MEQ/L Anion Gap 6 MEQ/L 5 MEQ/L Estimat Glomerular Filtration Rate 90 ML/MIN 111 ML/MIN White Blood Count 0.2 TH/MM3 Red Blood Count 2.67 MIL/MM3 Hemoglobin 7.7 GM/DL Hematocrit 23.0 % Mean Corpuscular Volume 86.1 FL Mean Corpuscular Hemoglobin 28.8 PG Mean Corpuscular Hemoglobin Concent 33.5 % Red Cell Distribution Width 15.3 % Platelet Count 16 TH/MM3 Mean Platelet Volume 7.5 FL CBC Comment AUTO DIFF Differential Total Cells Counted 20 Neutrophils % (Manual) 5 % Band Neutrophils % 5 % Lymphocytes % 90 % Neutrophils # (Manual) 0.0 TH/MM3 Differential Comment FINAL DIFF MANUAL Toxic Granulation 3+ Platelet Estimate LOW Platelet Morphology Comment NORMAL Phosphorus Level 2.4 MG/DL Magnesium Level 1.8 MG/DL Physical Exam General General Appearance: Well Developed, Well Nourished, Comfortable (with pain management), Pale (mild) Eyes Eye Exam: Pupils Equal, Sclera White Ears & Nose Ears & Nose Exam: Nasal Mucosa [place] (pale) Throat Throat Exam: Oral Mucosa [place] & Moist (pale) Neck Neck Exam: Neck Supple, Trachea Midline Pulmonary Resp Exam: Clear Bilaterally, No Distress Cardiology CV Exam: Regular, Normal Sinus Rhythm Gastrointestinal/Abdomen GI Exam: Soft, Non-Tender, Bowel Sounds Present Musculoskeletal MS Remarks Left knee joint swelling, tenderness slight warmth Evidence of weight loss and muscle wasting bilateral lower extremity Integumentary Skin Exam: Warm, Dry Extremeties Extremities Exam: No Edema Neurologic Neuro Exam: Alert, Awake, Oriented, Speech Clear Neuro Remarks Slightly forgetful Assessment/Plan Assessment/Plan Hx MD transformed into Acute Leukemia Acute myeloblastic leukemia s/p SONIA-C/ Vidarabine completed 05/23 sec Pancytopenia s/p Multiple PRBC & platelet tx f/u CBC Oncology f/u On Prophylactic abx , bactrim/acyclovir s/p Staph Epi bacteremia s/p Fever/Febrile Neutropenia IV Vanco cefepime /Micafungin ID f/u Neutropenic precautions Repeat blood culture today, if staph epi bacteremia persist, than Port may have to be removed Coagulopathy any acute bleeding s/p Vit K , stable New thrombus right cephalic vein [Superficial Vein ] elevate right arm at all times, gradual decrease in right arm edema, warm compresses Anxiety and depression Celexa and Xanax PRN , which appears to be effective, patient drowsy but awakens and is able to carry on simple conversation Left knee joint effusion s/p arthro-centesis , fluid appeared bloody Gram stain and c/s neg Cell count noted analgesic Protein calorie malnutrition TPN is ordered Encourage oral intake No SCDs or anticoagulation recommended at this time due to thrombocytopenia GERD, Protonix PT and OT to increase mobility D/W pt Discussed RN Supportive care Lydia Obrien MD Jun 11, 2017 16:04
[2017-06-11] MEDS: diphenhydrAMINE HCL 25 MG CAP PO PRN (16:52)
[2017-06-11] MEDS: MICAFUNGIN INJ 150 MG in SODIUM CHLORIDE 0.9% INJ 100 ML IV SCH (17:57)
[2017-06-12] VITALS (9 sets, daily range): BP systolic 123–147; BP diastolic 62–89; PULSE 75–94; RESP 12–18; TEMP 97–100.6; O2SAT 93–97
[2017-06-12] MEDS: FAT EMULSION 20% INJ 250 ML (@10 mls/hr) IV-CENTRAL SCH ×2 (00:13→20:57)
[2017-06-12] MEDS: CLINIMIX E 4.25/25 1000 mL- </= 42 mls/hr IV-CENTRAL SCH ×6 (00:13→20:57)
[2017-06-12] MEDS: CEFEPIME INJ 2,000 MG in SODIUM CHLORIDE 0.9% INJ 100 ML IV SCH ×3 (02:19→17:25)
[2017-06-12] MEDS: SODIUM CHLORIDE 0.9% FLUSH 10 ML FLUSH IVF PRN (03:18)
[2017-06-12] MEDS: ACETAMINOPHEN 325 MG TAB PO PRN (03:22)
[2017-06-12 04:51] LABS: APTT (PATIENT) 33.1 SEC (24.3-30.1); INTERNATIONAL NORMALIZED RATIO 1.5 RATIO; PROTHROMBIN TIME - PATIENT 16.5 SEC (9.8-11.6)
[2017-06-12] MEDS ORDERED: PHARMACY ORDERED LAB ONE (07:45)
[2017-06-12] MEDS: NYSTAT/DIPHENHY/LIDO MOUTHWASH (Adult) 120ML SWISH-SWAL SCH ×4 (08:27→20:51)
[2017-06-12] MEDS: PANTOPRAZOLE SOD 20 MG DELAYED RELEASE TAB PO SCH (08:28)
[2017-06-12] MEDS: VANCOMYCIN INJ 1,500 MG in SODIUM CHLORID 0.9% 500 ML INJ 500 ML IV SCH ×2 (08:28→20:51)
[2017-06-12] MEDS: CITALOPRAM HYDROBROMIDE 20 MG TAB PO SCH (08:28)
[2017-06-12] MEDS: POTASSIUM CHLORIDE 10 MEQ CONTROLLED RELEASE TAB PO SCH (08:28)
[2017-06-12] MEDS: MEGESTROL ACETATE SUSP 400 MG/10 ML CUP PO SCH (08:29)
[2017-06-12 08:52] LABS: HEMATOCRIT 21.6 % (39.0-51.0); MEAN CELL VOLUME 85.8 FL (80.0-100.0); MEAN CORPUSCULAR HEMOGLOBIN 29.1 PG (27.0-34.0); PLATELET COUNT 28 TH/MM3 (150-450); RED BLOOD COUNT 2.52 MIL/MM3 (4.50-5.90); RED CELL DISTRIBUTION WIDTH 14.9 % (11.6-17.2); WHITE BLOOD COUNT 0.2 TH/MM3 (4.0-11.0)
[2017-06-12 08:55] LABS: HEMO FLAGS AUTO DIFF
[2017-06-12 09:28] LABS: BANDS 5 % (0-6); METAMYELOCYTES 5 % (0-1); PLATELET ESTIMATE SMEAR LOW (NORMAL); PLATELET MORPHOLOGY NORMAL (NORMAL); POLYS (SEG NEUTROPHILS) 5 % (16-70); WBC DIFF SAMPLE 20
[2017-06-12 09:29] LABS: SCAN/DIFF FINAL DIFF MANUAL
[2017-06-12 09:31] LABS: BLOOD UREA NITROGEN 13 MG/DL (7-18); GLOMERULAR FILTRATION RATE 83 ML/MIN (>89)
[2017-06-12 09:32] LABS: ALKALINE PHOSPHATASE 68 U/L (45-117); ALT (GPT) 38 U/L (12-78); ANION GAP 8 MEQ/L (5-15); AST (GOT) 12 U/L (15-37); BICARBONATE 28.9 MEQ/L (21.0-32.0); CHLORIDE 103 MEQ/L (98-107); LDH SERUM 85 U/L (87-241); SODIUM (NA) 140 MEQ/L (136-145); TOTAL BILIRUBIN ADULT 1.1 MG/DL (0.2-1.0)
[2017-06-12 09:39] LABS: POTASSIUM 2.9 MEQ/L (3.5-5.1)
--- NOTE | 2017-06-12 11:06 | PD.ONC.PN ---
Subjective Subjective Remarks Tmax 100.9 overnight. Resting in bed. Wasn't able to have breakfast this morning. He states dietary forgot to bring it. He states he has been eating more. No complaints. Objective Data Date Time Temp Pulse Resp B/P (MAP) Pulse Ox O2 Delivery O2 Flow Rate FiO2 06/12/17 08:00 97.0 75 14 130/68 (88) 97 06/12/17 04:15 84 06/12/17 04:00 100.6 86 17 147/89 (108) 93 06/12/17 03:22 100.4 06/12/17 00:07 85 06/12/17 00:00 98.8 76 17 123/74 (90) 97 06/11/17 20:06 85 06/11/17 20:00 100.9 84 18 142/81 (101) 96 06/11/17 16:50 99.0 80 18 125/58 97 06/11/17 16:00 99.0 77 20 125/58 (80) 98 06/11/17 14:00 97.4 100 18 124/69 (87) 97 06/12/17 06/12/17 06/12/17 07:00 15:00 23:00 Intake Total 1040 ml Output Total 1375 ml Balance -335 ml Result Diagram: 06/12/1715 06/12/17814 Laboratory Results Laboratory Tests Test 06/12/17 03:20 06/12/17 08:15 Prothrombin Time 16.5 SEC Prothromb Time International Ratio 1.5 RATIO Activated Partial Thromboplast Time 33.1 SEC Fibrinogen 522 mg/dL White Blood Count 0.2 TH/MM3 Red Blood Count 2.52 MIL/MM3 Hemoglobin 7.3 GM/DL Hematocrit 21.6 % Mean Corpuscular Volume 85.8 FL Mean Corpuscular Hemoglobin 29.1 PG Mean Corpuscular Hemoglobin Concent 34.0 % Red Cell Distribution Width 14.9 % Platelet Count 28 TH/MM3 Mean Platelet Volume 7.4 FL CBC Comment AUTO DIFF Differential Total Cells Counted 20 Neutrophils % (Manual) 5 % Band Neutrophils % 5 % Lymphocytes % 85 % Neutrophils # (Manual) 0.0 TH/MM3 Metamyelocytes 5 % Differential Comment FINAL DIFF MANUAL Platelet Estimate LOW Platelet Morphology Comment NORMAL Blood Urea Nitrogen 13 MG/DL Creatinine 0.90 MG/DL Random Glucose 129 MG/DL Total Protein 6.2 GM/DL Albumin 1.8 GM/DL Calcium Level 8.5 MG/DL Alkaline Phosphatase 68 U/L Aspartate Amino Transf (AST/SGOT) 12 U/L Alanine Aminotransferase (ALT/SGPT) 38 U/L Lactate Dehydrogenase 85 U/L Total Bilirubin 1.1 MG/DL Sodium Level 140 MEQ/L Potassium Level 2.9 MEQ/L Chloride Level 103 MEQ/L Carbon Dioxide Level 28.9 MEQ/L Anion Gap 8 MEQ/L Estimat Glomerular Filtration Rate 83 ML/MIN Vancomycin Level Trough 19.8 MCG/ML Culture Results Microbiology Date/Time Source Procedure Growth Status 06/11/17 15:39 Blood Peripheral Aerobic Blood Culture Pending Received 06/11/17 15:39 Blood Peripheral Anaerobic Blood Culture Pending Received 06/11/17 15:37 Blood Line Aerobic Blood Culture Pending Received 06/11/17 15:37 Blood Line Anaerobic Blood Culture Pending Received 06/09/17 11:27 Blood Peripheral Aerobic Blood Culture - Preliminary NO GROWTH IN 2 DAYS Resulted 06/09/17 11:27 Blood Peripheral Anaerobic Blood Culture - Preliminary NO GROWTH IN 2 DAYS Resulted 06/09/17 11:22 Blood Line Aerobic Blood Culture - Preliminary NO GROWTH IN 2 DAYS Resulted 06/09/17 11:22 Blood Line Anaerobic Blood Culture - Preliminary NO GROWTH IN 2 DAYS Resulted Administered Medications Medications (Trade) Dose Ordered Sig/Ivelisse Route PRN Reason Start Time Stop Time Status Last Admin Dose Admin Acetaminophen (Tylenol) 650 mg Q4H PRN PO fever>100.4 05/15/17 13:00 06/12/17 03:22 Citalopram Hydrobromide (CeleXA) 20 mg DAILY PO 05/16/17 09:00 06/12/17 08:28 Pantoprazole Sodium (Protonix) 20 mg DAILY PO 05/16/17 09:00 06/12/17 08:28 Ondansetron HCl (Zofran Inj) 4 mg Q6HR PRN IV PUSH nausea 05/15/17 14:00 05/16/17 10:30 Sodium Chloride (NS Flush) 5 ml UNSCH PRN IVF SEE PROTOCOL 05/15/17 15:00 06/11/17 08:44 Heparin Sodium (Porcine) (Heparin Central Flush) 250 units UNSCH PRN IV FLUSH SEE PROTOCOL 05/15/17 15:00 06/12/17 03:18 Sodium Chloride (NS Flush) UNSCH PRN IVF SEE PROTOCOL 05/15/17 18:45 06/12/17 03:18 Trimethoprim/ Sulfamethoxazole (Bactrim Ds 800-160 Mg) 1 tab MoWeFr@09 PO 05/16/17 09:00 Future Hold 05/25/17 08:37 Multi-Ingredient Mouthwash/Gargle (Magic Mouthwash Adult Liq) 5 ml QID SWISH-SWAL 05/16/17 13:00 06/12/17 08:27 Megestrol Acetate (Megace Liq) 300 mg DAILY PO 05/16/17 14:00 06/12/17 08:29 Magnesium Hydroxide (Milk Of Magnesia Liq) 30 ml DAILY PRN PO CONSTIPATION 05/21/17 11:30 06/06/17 13:20 Vancomycin HCl 1500 mg/Sodium Chloride 515 ml @ 250 mls/hr Q12H IV 05/26/17 08:00 06/12/17 08:28 Tramadol HCl (Ultram) 25 mg Q6H PRN PO PAIN 06/03/17 06:45 Future Hold 06/06/17 03:37 Cefepime HCl 2000 mg/Sodium Chloride 100 ml @ 200 mls/hr Q8H IV 06/06/17 02:00 06/12/17 02:19 Alprazolam (Xanax) 0.25 mg Q8H PRN PO anxiety 06/06/17 10:15 Future Hold 06/08/17 02:39 Potassium Chloride (KCl) 30 meq DAILY PO 06/08/17 12:00 06/12/17 08:28 Micafungin Sodium 150 mg/Sodium Chloride 100 ml @ 100 mls/hr Q24H IV 06/08/17 18:00 06/11/17 17:57 Diphenhydramine HCl (Benadryl) 25 mg Q4H PRN PO SEE LABEL COMMENTS 06/09/17 14:30 06/11/17 16:52 Multivitamins 10 ml/Folic Acid 1 mg/Amino Acids/ Electrolytes/ Dextrose 1,010.2 ml @ 42 mls/hr Q24H IV-CENTRAL 06/09/17 20:00 06/12/17 00:13 Fat Emulsion Intravenous 250 ml @ 10 mls/hr Q24H IV-CENTRAL 06/09/17 20:00 06/12/17 00:13 Objective Remarks GENERAL: Elderly male upright in bed in nad. SKIN: Warm and dry. HEAD: Normocephalic. EYES: No injection or drainage. NECK: Supple, trachea midline. CARDIOVASCULAR: Regular rate and rhythm RESPIRATORY: anterior campo clear. GASTROINTESTINAL: Abdomen soft, non-tender, nondistended. EXTREMITIES: No cyanosis. Left knee with yudi wrap in place, edema mildly improved. NEUROLOGICAL: awake and alert, normal speech. Assessment/Plan Problem List: (1) AML (acute myeloblastic leukemia) ICD Codes: C92.00 - Acute myeloblastic leukemia, not having achieved remission Plan: 05/15/17: Admission. given Hydrea. [facility] performed Leukapheresis bringing WBC from >100K to 44K. 05/16/17: D1. SONIA-C + Maria Del Rosario. 1 unit pRBC 05/17/17: D2. no transfusion. tolerating chemo 05/18/17: D3. no transfusion. 05/19/17: D4. 1 unit platelets today. No evidence of tumor lysis. Pt finished idarubicin yesterday. Continue SONIA-C. 05/20/17 D5: 1 unit platelets, 2 units PRBC's today. Will add on xanax prn and 1mg xanax at HS scheduled. Continue chemo, continue to monitor blood counts. 05/21/17.D6: No transfusion, start lactulose for Bm, continue chemo 05/22/17:D7 05/23/17: D8: Pt to have final bag chemo hung tonight. Transfuse 1 unit irradiated platelets, 1 unit irradiated PRBC's today. 05/24/17: D9: We'll transfuse 1 unit irradiated packed red blood cells today for hemoglobin of 6.9 05/25/17: D10. transfuse 1 unit platelets. pain in left knee and right shoulder. swelling in left knee. 05/26/17: D11. 1 unit platelets, 1 unit pRBC. 05/27/17: D12. 1 unit pRBC. 05/28/17: D13. no transfusion 05/29/17: D14. 1 unit pRBC 05/30/17: D15. 1 unit platelets 05/31/17: D16. 1 unit pRBC 06/01/17: D17: 1 unit platelets. repeat bone marrow biopsy 06/02/17: D18 1 unit PRBC 06/03/17: D19 No transfusion 06/04/17: D20. 1 unit platelets. waiting on pathology 06/05/17: D21. no events 06/06/17: D22. Transfuse 1 unit PRBC's, 1 unit platelets. 06/07/17: D23. Transfuse one unit packed cells, 1 unit platelets. 06/08/17: D24. 1 unit pRBC 06/09/17: D25. remains confused. 1 unit platelets. vitamin K 5mg x 1 06/10/17: D26. coags somewhat improved. Vitamin K2.5mg x 1 06/11/17: D27. 1 unit platelets. monitor coags. 06/12/17: D28. 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 --He presented with hyperleukocytosis and acute blast crises. (2) Pancytopenia ICD Codes: D61.818 - Other pancytopenia Status: Acute Plan: --transfuse him for hemoglobin of 7 or less. -- irradiated/CMV-negative blood products. --transfuse for platelet count of 10 or less. --Diflucan 100mg daily, Acyclovir 400mg PO BID (3) Coagulopathy ICD Codes: D68.9 - Coagulation defect, unspecified Status: Acute Plan: --monitor coags, fibrinogen, LDH and haptoglobin (4) Swelling of left knee joint ICD Codes: M25.462 - Effusion, left knee Status: Acute Plan: --diff dx includes but is not limited to gout vs pseudogout, vs. hemarthrosis vs. septic joint vs. arthritis. --MRI of knee shows joint effusion, unable to tap until counts recover --on abx. ID following. --ortho saw patient on 05/30 and recommends medical management, close observation and intervention if symptoms worsen (5) Sepsis ICD Codes: A41.9 - Sepsis, unspecified organism Plan: --ID following --BC 06/11: pending. --BC on 06/09 showed no growth --+BC, 05/26--[facility] --on Cefepime, Vanco and Micafungin (6) Protein-calorie malnutrition, moderate ICD Codes: E44.0 - Moderate protein-calorie malnutrition Status: Acute Plan: -started on TPN on 06/09 Assessment 72y/o male with acute myeloid leukemia with blast crisis. 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 Plan 1. consult home health care case manager for calorie count 2. replace potassium 3. monitor CBC, coags Attending Statement The exam, history, and the medical decision-making described in the above note were completed with the assistance of the mid-level provider. I reviewed and agree with the findings presented. I attest that I had a [id number] encounter with the patient on the same day, and personally performed and documented my assessment and findings in the medical record. remains pancytopenic with severe neutropenia had high fever this am blood cultures drawn on 06/11 no growth thus far on Vanc/Cefepime and Micafungin no eating much and refusing PT says he is trying but his disagrees Not ready to come off the TPN chest X-ray in am daily Mag and Phosp INR up due to malnutrition will give Vitamin K 5mg X 1 d/w rn o/n events reviewed Problem Qualifiers (1) AML (acute myeloblastic leukemia): Qualified Codes: C92.00 - Acute myeloblastic leukemia, not having achieved remission Oma Chavez Jun 12, 2017 11:06 Shar Ibanez MD Jun 12, 2017 20:35
[2017-06-12] MEDS ORDERED: POTASSIUM CHLORIDE 25 MEQ EFFERVESCENT TAB PO ONE (12:15)
--- NOTE | 2017-06-12 13:11 | HHI.PR ---
Subjective Remarks disoriented doesn't feel well, "I had a tough night" states he had a fever of 103, was 100.6 left knee pain stable appetite poor Objective Objective Results - Vital Signs Date Time Temp Pulse Resp B/P (MAP) Pulse Ox O2 Delivery O2 Flow Rate FiO2 06/12/17 12:00 98.7 94 12 135/73 (93) 97 06/12/17 08:00 97.0 75 14 130/68 (88) 97 06/12/17 04:15 84 06/12/17 04:00 100.6 86 17 147/89 (108) 93 06/12/17 03:22 100.4 06/12/17 00:07 85 06/12/17 00:00 98.8 76 17 123/74 (90) 97 06/11/17 20:06 85 06/11/17 20:00 100.9 84 18 142/81 (101) 96 06/11/17 16:50 99.0 80 18 125/58 97 06/11/17 16:00 99.0 77 20 125/58 (80) 98 06/11/17 14:00 97.4 100 18 124/69 (87) 97 I/O 06/11/17 06/11/17 06/11/17 06/12/17 06/12/17 06/12/17 07:00 15:00 23:00 07:00 15:00 23:00 Intake Total 240 ml 3345 ml 1832 ml 1040 ml Output Total 320 ml 800 ml 1300 ml 1375 ml Balance -80 ml 2545 ml 532 ml -335 ml Intake Oral 240 ml 480 ml 480 ml IV Total 3345 ml 1098 ml 560 ml Platelets 254 ml Output Urine Total 320 ml 800 ml 1300 ml 1375 ml # Voids 2 # Bowel Movements 1 Result Diagram: 06/12/17 0815 06/12/17 0815 Imaging Last Impressions Chest X-Ray 05/16/17 0700 Signed Impressions: Service Date/Time: Tuesday, May 16, 2017 07:41 - CONCLUSION: The lungs are clear. No evidence of pneumothorax. Ethan Sabillon MD [facility] 05/15/17 0000 Signed Impressions: Service Date/Time: Monday, May 15, 2017 14:57 - CONCLUSION: Normal study. Ejection fraction 72%% Man Burden MD Catheter Placement X-Ray 05/15/17 0000 Signed Impressions: Service Date/Time: Monday, May 15, 2017 17:46 - CONCLUSION: Uncomplicated line placement as above. Man Burden MD Other Results Laboratory Tests Test 06/12/17 03:20 06/12/17 08:15 Prothrombin Time 16.5 Prothromb Time International Ratio 1.5 Activated Partial Thromboplast Time 33.1 Fibrinogen 522 White Blood Count 0.2 Red Blood Count 2.52 Hemoglobin 7.3 Hematocrit 21.6 Mean Corpuscular Volume 85.8 Mean Corpuscular Hemoglobin 29.1 Mean Corpuscular Hemoglobin Concent 34.0 Red Cell Distribution Width 14.9 Platelet Count 28 Mean Platelet Volume 7.4 CBC Comment AUTO DIFF Differential Total Cells Counted 20 Neutrophils % (Manual) 5 Band Neutrophils % 5 Lymphocytes % 85 Neutrophils # (Manual) 0.0 Metamyelocytes 5 Differential Comment FINAL DIFF MANUAL Platelet Estimate LOW Platelet Morphology Comment NORMAL Blood Urea Nitrogen 13 Creatinine 0.90 Random Glucose 129 Total Protein 6.2 Albumin 1.8 Calcium Level 8.5 Alkaline Phosphatase 68 Aspartate Amino Transf (AST/SGOT) 12 Alanine Aminotransferase (ALT/SGPT) 38 Lactate Dehydrogenase 85 Total Bilirubin 1.1 Sodium Level 140 Potassium Level 2.9 Chloride Level 103 Carbon Dioxide Level 28.9 Anion Gap 8 Estimat Glomerular Filtration Rate 83 Vancomycin Level Trough 19.8 Date/Time Source Procedure Growth Status 06/11/17 15:39 Blood Peripheral Aerobic Blood Culture - Preliminary NO GROWTH IN 1 DAY Resulted 06/11/17 15:39 Blood Peripheral Anaerobic Blood Culture - Preliminary NO GROWTH IN 1 DAY Resulted 06/07/17 11:15 Fluid Synovial Fluid Gram Stain - Final Complete 06/07/17 11:15 Fluid Synovial Fluid Body Fluid Culture - Final NO GROWTH IN 72 HRS.--AEROBICALLY OR ... Complete ROS General: Other (ros difficult to obtain ) Physical Exam Physical Exam GENERAL: This is a well-nourished, well-developed patient, in no apparent distress. SKIN: Petechial rash noted to bilateral pretibial areas. Skin pale and cool to touch HEAD: Atraumatic. Normocephalic. No temporal or scalp tenderness. EYES: Pupils equal round and reactive. Extraocular motions intact. No scleral icterus. No injection or drainage. ENT: Nose without bleeding, purulent drainage or septal hematoma. Throat without erythema, tonsillar hypertrophy or exudate. Uvula midline. Airway patent. NECK: Trachea midline. No JVD or lymphadenopathy. Supple, nontender, no meningeal signs. CARDIOVASCULAR: Regular rate and rhythm without murmurs, gallops, or rubs. RESPIRATORY: Clear to auscultation. Breath sounds equal bilaterally. No wheezes , rales, or rhonchi. Port-A-Cath noted to left chest wall area. GASTROINTESTINAL: Abdomen soft, non-tender, nondistended. No hepato-splenomegaly , or palpable masses. No guarding. MUSCULOSKELETAL: Left knee tender with flexion. Right shoulder moving better. NEUROLOGICAL: Awakes to voice, disoriented. No focal deficit. Urinary Catheter: No (condom catheter ) Vascular Central Line Catheter: No A/P Diagnosis: (1) AML (acute myeloblastic leukemia) ICD Codes: C92.00 - Acute myeloblastic leukemia, not having achieved remission (2) Pancytopenia ICD Codes: D61.818 - Other pancytopenia Status: Acute (3) Coagulopathy ICD Codes: D68.9 - Coagulation defect, unspecified Status: Acute (4) Anxiety and depression ICD Codes: F41.8 - Other specified anxiety disorders Status: Chronic (5) Familial tremor ICD Codes: G25.0 - Essential tremor Status: Chronic (6) Protein-calorie malnutrition, moderate ICD Codes: E44.0 - Moderate protein-calorie malnutrition Status: Acute (7) Thrombocytopenia ICD Codes: D69.6 - Thrombocytopenia, unspecified Status: Acute (8) Anemia ICD Codes: D64.9 - Anemia, unspecified Status: Acute (9) right forearm swelling Status: Acute (10) Swelling of left knee joint ICD Codes: M25.462 - Effusion, left knee Status: Acute Assessment and Plan 72-year-old white male with 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 Admitted for chemotherapy induction. Acute myeloblastic leukemia Pancytopenia -Dr. Ibanez managing -Continue with Bactrim Levaquin Diflucan and acyclovir -completed chemo 05/23 -Continue with blood product replacement is needed -Monitor for bone marrow recovery -CT guided bone marrow bx 06/01, results back. Minimal residual disease. -continue with blood product replacement Coagulopathy -Monitor for bleeding - fibrinogen levels per oncology, elevated. GERD Sanford esophagus -Continue Protonix 20 mg by mouth daily Anxiety and depression -Continue with Celexa 20 mg by mouth daily -continue Xanax PRN Confused, likely metabolic encephalopathy -CT head no acute findings -limit narcotics -continue to reorient frequently, inc. mobility -remains poorly motivated. Enc. out of bed Familial tremor, stable -continue with medical management Left knee and right shoulder pain, ? septic joint, effusion -MRI left knee noted, joint effusion, unable to have arthrocentesis due to low platelets. -ID has been consulted, input appreciated -Ortho following, input appreciated -Continue with empiric antibiotic -Continue with Allopurinol 100 mg po bid -Continue Riley PRN -s/p arthro-centesis , fluid appeared bloody Gram stain and c/s neg Cell count noted Positive blood cultures, ? Bacteremia, left knee effusion. -Appreciate ID input -Continue with empiric antibiotics per ID -Blood and line cultures positive for Staph epi -blood cultures repeated, so far negative. Continue to follow -per ID, no need to remove port -febrile overnight Coagulopathy any acute bleeding -s/p Vit K , stable Right arm swelling, positive for DVT cephalic vein -Elevate arm as needed -Warm compresses -no anticoagulation recommended at this time due to low platelets. -right arm swelling improved, less erythema. Protein calorie malnutrition -calorie count -continue TPN No SCDs or anticoagulation recommended at this time due to thrombocytopenia Continue Protonix for GI prophylaxis PT and OT to increase mobility Condition guarded bone marrow recovery in progress, Pt. remains debilitated, not very motivated. D/W RN D/W pt D/W Dr. Obrien Patient was seen by myself and Dr. Obrien, this note is written on his behalf Problem Qualifiers (1) AML (acute myeloblastic leukemia): Qualified Codes: C92.00 - Acute myeloblastic leukemia, not having achieved remission (2) Anemia: Viola Sanon Jun 12, 2017 13:11
[2017-06-12] MEDS: MICAFUNGIN INJ 150 MG in SODIUM CHLORIDE 0.9% INJ 100 ML IV SCH (17:25)
[2017-06-12] MEDS ORDERED: PHYTONADIONE 5 MG TAB PO ONE (21:00)
[2017-06-13] VITALS (7 sets, daily range): BP systolic 128–168; BP diastolic 60–84; PULSE 69–90; RESP 14–18; TEMP 98.9–101.4; O2SAT 94–98
[2017-06-13] MEDS: ACETAMINOPHEN 325 MG TAB PO PRN ×3 (00:33→23:23)
[2017-06-13] MEDS: CEFEPIME INJ 2,000 MG in SODIUM CHLORIDE 0.9% INJ 100 ML IV SCH ×3 (02:34→17:49)
[2017-06-13 05:44] LABS: MEAN CELL VOLUME 86.7 FL (80.0-100.0); MEAN CORPUSCULAR HGB CONC 33.5 % (32.0-36.0); WHITE BLOOD COUNT 0.1 TH/MM3 (4.0-11.0)
[2017-06-13 05:53] LABS: APTT (PATIENT) 34.5 SEC (24.3-30.1); INTERNATIONAL NORMALIZED RATIO 1.5 RATIO; PROTHROMBIN TIME - PATIENT 17.1 SEC (9.8-11.6)
[2017-06-13 05:56] LABS: ANION GAP 7 MEQ/L (5-15); AST (GOT) 13 U/L (15-37); BICARBONATE 28.9 MEQ/L (21.0-32.0); BLOOD UREA NITROGEN 15 MG/DL (7-18); CHLORIDE 104 MEQ/L (98-107); GLOMERULAR FILTRATION RATE 92 ML/MIN (>89); POTASSIUM 3.1 MEQ/L (3.5-5.1); SODIUM (NA) 140 MEQ/L (136-145)
[2017-06-13 05:57] LABS: HEMO FLAGS AUTO DIFF
[2017-06-13 05:58] LABS: HEMATOCRIT 20.8 % (39.0-51.0)
[2017-06-13 05:59] LABS: ALKALINE PHOSPHATASE 68 U/L (45-117); ALT (GPT) 39 U/L (12-78); PLATELET COUNT 18 TH/MM3 (150-450); TOTAL BILIRUBIN ADULT 1.1 MG/DL (0.2-1.0)
--- NOTE | 2017-06-13 07:22 | RADRPT ---
EXAM DATE/TIME: 06/13/2017 06:45 [facility] COMPARISON: CHEST PA & LAT, June 11, 2017, 13:36. INDICATIONS : Cough. Leukemia. Fever. MEDICAL HISTORY : Hiatal hernia. Arthritis. Leukemia, Herniated discs. Blood dyscrasias. SURGICAL HISTORY : Cholecystectomy. Lithotripsy. Chemotherapy, Infusaport ENCOUNTER: Subsequent ACUITY: 4 - 6 days PAIN SCORE: 0/10 LOCATION: Bilateral chest FINDINGS: A single view of the chest demonstrates right [id number] and superior vena cava. Cardiomegaly. Min imal basilar airspace disease. Calcified granuloma left lung base. CONCLUSION: Mild basilar airspace disease similar to June 10. Cardiomegaly. Shravan Saldaña MD on June 13, 2017 at 7:17 Board Certified Radiologist. This report was verified electronically.
[2017-06-13] MEDS: NYSTAT/DIPHENHY/LIDO MOUTHWASH (Adult) 120ML SWISH-SWAL SCH ×4 (09:00→20:11)
[2017-06-13 09:21] LABS: BANDS 7 % (0-6); PLATELET ESTIMATE SMEAR RARE (NORMAL); PLATELET MORPHOLOGY NORMAL (NORMAL); SCAN/DIFF FINAL DIFF MANUAL; WBC DIFF SAMPLE 15
[2017-06-13] MEDS: PANTOPRAZOLE SOD 20 MG DELAYED RELEASE TAB PO SCH (10:11)
[2017-06-13] MEDS: VANCOMYCIN INJ 1,500 MG in SODIUM CHLORID 0.9% 500 ML INJ 500 ML IV SCH ×2 (10:11→20:11)
[2017-06-13] MEDS: MEGESTROL ACETATE SUSP 400 MG/10 ML CUP PO SCH (10:12)
[2017-06-13] MEDS: POTASSIUM CHLORIDE 10 MEQ CONTROLLED RELEASE TAB PO SCH (10:12)
[2017-06-13] MEDS: CITALOPRAM HYDROBROMIDE 20 MG TAB PO SCH (10:12)
[2017-06-13] MEDS ORDERED: SODIUM CHLOR 0.9% 250 ML INJ 250 ML IV ONE (10:30)
--- NOTE | 2017-06-13 11:48 | PD.ONC.PN ---
Subjective Subjective Remarks Tmax 101.4 overnight. Patient states he is tired today. He is waiting to talk with his . Knee feels the same. denies cough. Objective Data Date Time Temp Pulse Resp B/P (MAP) Pulse Ox O2 Delivery O2 Flow Rate FiO2 06/13/17 08:00 100.8 77 16 168/84 (112) 94 06/13/17 04:00 99.1 69 17 131/60 (83) 95 06/13/17 04:00 76 06/13/17 01:15 100.5 06/13/17 00:00 83 06/13/17 00:00 101.4 81 17 128/70 (89) 96 06/12/17 20:00 100.3 75 18 126/62 (83) 96 06/12/17 20:00 88 06/12/17 16:00 99.6 87 14 140/69 (92) 96 06/12/17 12:00 98.7 94 12 135/73 (93) 97 06/13/17 06/13/17 06/13/17 07:00 15:00 23:00 Intake Total 480 ml Output Total 1350 ml Balance -870 ml Result Diagram: 06/13/17 0500 06/13/17 0500 Laboratory Results Laboratory Tests Test 06/13/17 05:00 White Blood Count 0.1 TH/MM3 Red Blood Count 2.40 MIL/MM3 Hemoglobin 7.0 GM/DL Hematocrit 20.8 % Mean Corpuscular Volume 86.7 FL Mean Corpuscular Hemoglobin 29.0 PG Mean Corpuscular Hemoglobin Concent 33.5 % Red Cell Distribution Width 15.0 % Platelet Count 18 TH/MM3 Mean Platelet Volume 7.8 FL CBC Comment AUTO DIFF Differential Total Cells Counted 15 Band Neutrophils % 7 % Lymphocytes % 93 % Neutrophils # (Manual) 0.0 TH/MM3 Differential Comment FINAL DIFF MANUAL Platelet Estimate RARE Platelet Morphology Comment NORMAL Prothrombin Time 17.1 SEC Prothromb Time International Ratio 1.5 RATIO Activated Partial Thromboplast Time 34.5 SEC Blood Urea Nitrogen 15 MG/DL Creatinine 0.83 MG/DL Random Glucose 137 MG/DL Total Protein 6.0 GM/DL Albumin 1.7 GM/DL Calcium Level 8.2 MG/DL Phosphorus Level 2.4 MG/DL Alkaline Phosphatase 68 U/L Aspartate Amino Transf (AST/SGOT) 13 U/L Alanine Aminotransferase (ALT/SGPT) 39 U/L Total Bilirubin 1.1 MG/DL Sodium Level 140 MEQ/L Potassium Level 3.1 MEQ/L Chloride Level 104 MEQ/L Carbon Dioxide Level 28.9 MEQ/L Anion Gap 7 MEQ/L Estimat Glomerular Filtration Rate 92 ML/MIN Culture Results Microbiology Date/Time Source Procedure Growth Status 06/13/17 01:36 Blood Peripheral Aerobic Blood Culture Pending Received 06/13/17 01:36 Blood Peripheral Anaerobic Blood Culture Pending Received 06/13/17 00:40 Blood Line Aerobic Blood Culture Pending Received 06/13/17 00:40 Blood Line Anaerobic Blood Culture Pending Received 06/11/17 15:39 Blood Peripheral Aerobic Blood Culture - Preliminary NO GROWTH IN 2 DAYS Resulted 06/11/17 15:39 Blood Peripheral Anaerobic Blood Culture - Preliminary NO GROWTH IN 2 DAYS Resulted 06/11/17 15:37 Blood Line Aerobic Blood Culture - Preliminary NO GROWTH IN 2 DAYS Resulted 06/11/17 15:37 Blood Line Anaerobic Blood Culture - Preliminary NO GROWTH IN 2 DAYS Resulted Imaging Studies Last 24 hours Impressions Chest X-Ray 06/13/17 0600 Signed Impressions: Service Date/Time: Tuesday, June 13, 2017 06:45 - CONCLUSION: Mild basilar airspace disease similar to June 10. Cardiomegaly. Shravan Saldaña MD Administered Medications Medications (Trade) Dose Ordered Sig/Ivelisse Route PRN Reason Start Time Stop Time Status Last Admin Dose Admin Acetaminophen (Tylenol) 650 mg Q4H PRN PO fever>100.4 05/15/17 13:00 06/13/17 10:15 Citalopram Hydrobromide (CeleXA) 20 mg DAILY PO 05/16/17 09:00 06/13/17 10:12 Pantoprazole Sodium (Protonix) 20 mg DAILY PO 05/16/17 09:00 06/13/17 10:11 Ondansetron HCl (Zofran Inj) 4 mg Q6HR PRN IV PUSH nausea 05/15/17 14:00 05/16/17 10:30 Sodium Chloride (NS Flush) 5 ml UNSCH PRN IVF SEE PROTOCOL 05/15/17 15:00 06/11/17 08:44 Heparin Sodium (Porcine) (Heparin Central Flush) 250 units UNSCH PRN IV FLUSH SEE PROTOCOL 05/15/17 15:00 06/12/17 03:18 Sodium Chloride (NS Flush) UNSCH PRN IVF SEE PROTOCOL 05/15/17 18:45 06/12/17 03:18 Trimethoprim/ Sulfamethoxazole (Bactrim Ds 800-160 Mg) 1 tab MoWeFr@09 PO 05/16/17 09:00 Future Hold 05/25/17 08:37 Multi-Ingredient Mouthwash/Gargle (Magic Mouthwash Adult Liq) 5 ml QID SWISH-SWAL 05/16/17 13:00 06/12/17 20:51 Megestrol Acetate (Megace Liq) 300 mg DAILY PO 05/16/17 14:00 06/13/17 10:12 Magnesium Hydroxide (Milk Of Magnesia Liq) 30 ml DAILY PRN PO CONSTIPATION 05/21/17 11:30 06/06/17 13:20 Vancomycin HCl 1500 mg/Sodium Chloride 515 ml @ 250 mls/hr Q12H IV 05/26/17 08:00 06/13/17 10:11 Tramadol HCl (Ultram) 25 mg Q6H PRN PO PAIN 06/03/17 06:45 Future Hold 06/06/17 03:37 Cefepime HCl 2000 mg/Sodium Chloride 100 ml @ 200 mls/hr Q8H IV 06/06/17 02:00 06/13/17 02:34 Alprazolam (Xanax) 0.25 mg Q8H PRN PO anxiety 06/06/17 10:15 Future Hold 06/08/17 02:39 Potassium Chloride (KCl) 30 meq DAILY PO 06/08/17 12:00 06/13/17 10:12 Micafungin Sodium 150 mg/Sodium Chloride 100 ml @ 100 mls/hr Q24H IV 06/08/17 18:00 06/12/17 17:25 Diphenhydramine HCl (Benadryl) 25 mg Q4H PRN PO SEE LABEL COMMENTS 06/09/17 14:30 06/11/17 16:52 Multivitamins 10 ml/Folic Acid 1 mg/Amino Acids/ Electrolytes/ Dextrose 1,010.2 ml @ 42 mls/hr Q24H IV-CENTRAL 06/09/17 20:00 06/12/17 20:57 Fat Emulsion Intravenous 250 ml @ 10 mls/hr Q24H IV-CENTRAL 06/09/17 20:00 06/12/17 20:57 Objective Remarks GENERAL: Elderly male lying in bed in nad. SKIN: Warm and dry. HEAD: Normocephalic. EYES: No injection or drainage. NECK: Supple, trachea midline. CARDIOVASCULAR: +S1/S2 RESPIRATORY: anterior campo clear. GASTROINTESTINAL: Abdomen soft, non-tender, nondistended. EXTREMITIES: No cyanosis. Left knee mildly swollen with yudi bandage in place. NEUROLOGICAL: awake and alert, normal speech. moving extremities. Assessment/Plan Problem List: (1) AML (acute myeloblastic leukemia) ICD Codes: C92.00 - Acute myeloblastic leukemia, not having achieved remission Plan: 05/15/17: Admission. given Hydrea. [facility] performed Leukapheresis bringing WBC from >100K to 44K. 05/16/17: D1. SONIA-C + Maria Del Rosario. 1 unit pRBC 05/17/17: D2. no transfusion. tolerating chemo 05/19/17: D4. 1 unit platelets today. No evidence of tumor lysis. Pt finished idarubicin yesterday. Continue SONIA-C. 05/20/17 D5: 1 unit platelets, 2 units PRBC's today. Will add on xanax prn and 1mg xanax at HS scheduled. Continue chemo, continue to monitor blood counts. 05/23/17: D8: Pt to have final bag chemo hung tonight. Transfuse 1 unit irradiated platelets, 1 unit irradiated PRBC's today. 05/24/17: D9: We'll transfuse 1 unit irradiated packed red blood cells today for hemoglobin of 6.9 05/25/17: D10. transfuse 1 unit platelets. pain in left knee and right shoulder. swelling in left knee. 06/12/17: D28. 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 --He presented with hyperleukocytosis and acute blast crises. (2) Pancytopenia ICD Codes: D61.818 - Other pancytopenia Status: Acute Plan: --transfuse him for hemoglobin of 7 or less. -- irradiated/CMV-negative blood products. --transfuse for platelet count of 10 or less. --Diflucan 100mg daily, Acyclovir 400mg PO BID (3) Coagulopathy ICD Codes: D68.9 - Coagulation defect, unspecified Status: Acute Plan: --monitor coags, fibrinogen, LDH and haptoglobin (4) Swelling of left knee joint ICD Codes: M25.462 - Effusion, left knee Status: Acute Plan: --diff dx includes but is not limited to gout vs pseudogout, vs. hemarthrosis vs. septic joint vs. arthritis. --MRI of knee shows joint effusion, unable to tap until counts recover --on abx. ID following. --ortho saw patient on 05/30 and recommends medical management, close observation and intervention if symptoms worsen (5) Sepsis ICD Codes: A41.9 - Sepsis, unspecified organism Plan: --ID following --BC 06/13: BC pending. --BC 06/11: BC no growth --BC on 06/09 showed no growth --+BC, 05/26--GPC --on Cefepime, Vanco and Micafungin (6) Protein-calorie malnutrition, moderate ICD Codes: E44.0 - Moderate protein-calorie malnutrition Status: Acute Plan: -started on TPN on 06/09 Assessment 72y/o male with acute myeloid leukemia with blast crisis. 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 Plan 1. continue TPN 2. monitor I/O 3. continue antibiotics. --discussed antibiotics with Dr. Montilla of ID. He is on full spectrum coverage. until we have positive blood cultures return, will continue current antibiotics. Attending Statement The exam, history, and the medical decision-making described in the above note were completed with the assistance of the mid-level provider. I reviewed and agree with the findings presented. I attest that I had a [id number] encounter with the patient on the same day, and personally performed and documented my assessment and findings in the medical record. High risk AML severe neutropenia persists blood product support pRBCs today continue TPN deconditioning and malnutrition Daily PT wants to speak with palliative care to discuss hospice but not quiet ready spoke with patient and he states that he wants to "fight all the way" will ask palliative care team to speak with the patient to determine goals of care for now d/w rn overnight events reviewed Problem Qualifiers (1) AML (acute myeloblastic leukemia): Qualified Codes: C92.00 - Acute myeloblastic leukemia, not having achieved remission Oma Chavez Jun 13, 2017 11:48 Shar Ibanez MD Jun 13, 2017 23:32
--- NOTE | 2017-06-13 13:52 | HHI.PR ---
Subjective Remarks more awake, and oriented today "I had fevers last night" feeling poorly today left knee same, doesn't want to move leg febrile overnight, Max 101.4 no cough, no sputum no diarrhea Objective Objective Results - Vital Signs Date Time Temp Pulse Resp B/P (MAP) Pulse Ox O2 Delivery O2 Flow Rate FiO2 06/13/17 08:00 100.8 77 16 168/84 (112) 94 06/13/17 04:00 99.1 69 17 131/60 (83) 95 06/13/17 04:00 76 06/13/17 01:15 100.5 06/13/17 00:00 83 06/13/17 00:00 101.4 81 17 128/70 (89) 96 06/12/17 20:00 100.3 75 18 126/62 (83) 96 06/12/17 20:00 88 06/12/17 16:00 99.6 87 14 140/69 (92) 96 I/O 06/12/17 06/12/17 06/12/17 06/13/17 06/13/17 06/13/17 07:00 15:00 23:00 07:00 15:00 23:00 Intake Total 1040 ml 1005 ml 480 ml Output Total 1375 ml 1650 ml 1350 ml Balance -335 ml -645 ml -870 ml Intake Oral 480 ml 480 ml IV Total 560 ml 1005 ml Output Urine Total 1375 ml 1650 ml 1350 ml # Bowel Movements 1 1 Result Diagram: 06/13/17 0500 06/13/17 0500 Imaging Last Impressions Chest X-Ray 05/16/17 0700 Signed Impressions: Service Date/Time: Tuesday, May 16, 2017 07:41 - CONCLUSION: The lungs are clear. No evidence of pneumothorax. Ethan Sabillon MD [facility] 05/15/17 0000 Signed Impressions: Service Date/Time: Monday, May 15, 2017 14:57 - CONCLUSION: Normal study. Ejection fraction 72%% Man Burden MD Catheter Placement X-Ray 05/15/17 0000 Signed Impressions: Service Date/Time: Monday, May 15, 2017 17:46 - CONCLUSION: Uncomplicated line placement as above. Man Burden MD Other Results Laboratory Tests Test 06/13/17 05:00 White Blood Count 0.1 Red Blood Count 2.40 Hemoglobin 7.0 Hematocrit 20.8 Mean Corpuscular Volume 86.7 Mean Corpuscular Hemoglobin 29.0 Mean Corpuscular Hemoglobin Concent 33.5 Red Cell Distribution Width 15.0 Platelet Count 18 Mean Platelet Volume 7.8 CBC Comment AUTO DIFF Differential Total Cells Counted 15 Band Neutrophils % 7 Lymphocytes % 93 Neutrophils # (Manual) 0.0 Differential Comment FINAL DIFF MANUAL Platelet Estimate RARE Platelet Morphology Comment NORMAL Prothrombin Time 17.1 Prothromb Time International Ratio 1.5 Activated Partial Thromboplast Time 34.5 Blood Urea Nitrogen 15 Creatinine 0.83 Random Glucose 137 Total Protein 6.0 Albumin 1.7 Calcium Level 8.2 Phosphorus Level 2.4 Alkaline Phosphatase 68 Aspartate Amino Transf (AST/SGOT) 13 Alanine Aminotransferase (ALT/SGPT) 39 Total Bilirubin 1.1 Sodium Level 140 Potassium Level 3.1 Chloride Level 104 Carbon Dioxide Level 28.9 Anion Gap 7 Estimat Glomerular Filtration Rate 92 Date/Time Source Procedure Growth Status 06/13/17 01:36 Blood Peripheral Aerobic Blood Culture Pending Received 06/13/17 01:36 Blood Peripheral Anaerobic Blood Culture Pending Received 06/07/17 11:15 Fluid Synovial Fluid Gram Stain - Final Complete 06/07/17 11:15 Fluid Synovial Fluid Body Fluid Culture - Final NO GROWTH IN 72 HRS.--AEROBICALLY OR ... Complete ROS General: Fatigue, Weakness, Other (12 point ros completed, limited except as noted above ) Neuro/MS: Other (left knee pain ) Physical Exam Physical Exam GENERAL: This is a well-nourished, well-developed patient, in no apparent distress. SKIN: Petechial rash noted to bilateral pretibial areas. Skin pale and cool to touch HEAD: Atraumatic. Normocephalic. No temporal or scalp tenderness. EYES: Pupils equal round and reactive. Extraocular motions intact. No scleral icterus. No injection or drainage. ENT: Nose without bleeding, purulent drainage or septal hematoma. Throat without erythema, tonsillar hypertrophy or exudate. Uvula midline. Airway patent. NECK: Trachea midline. No JVD or lymphadenopathy. Supple, nontender, no meningeal signs. CARDIOVASCULAR: Regular rate and rhythm without murmurs, gallops, or rubs. RESPIRATORY: Clear to auscultation. Breath sounds equal bilaterally. No wheezes , rales, or rhonchi. Port-A-Cath noted to left chest wall area. GASTROINTESTINAL: Abdomen soft, non-tender, nondistended. No hepato-splenomegaly , or palpable masses. No guarding. MUSCULOSKELETAL: Left knee tender with flexion. Right shoulder moving better. NEUROLOGICAL: Awakes to voice, disoriented. No focal deficit. Urinary Catheter: No Vascular Central Line Catheter: No A/P Diagnosis: (1) AML (acute myeloblastic leukemia) ICD Codes: C92.00 - Acute myeloblastic leukemia, not having achieved remission (2) Pancytopenia ICD Codes: D61.818 - Other pancytopenia Status: Acute (3) Coagulopathy ICD Codes: D68.9 - Coagulation defect, unspecified Status: Acute (4) Anxiety and depression ICD Codes: F41.8 - Other specified anxiety disorders Status: Chronic (5) Familial tremor ICD Codes: G25.0 - Essential tremor Status: Chronic (6) Protein-calorie malnutrition, moderate ICD Codes: E44.0 - Moderate protein-calorie malnutrition Status: Acute (7) Thrombocytopenia ICD Codes: D69.6 - Thrombocytopenia, unspecified Status: Acute (8) Anemia ICD Codes: D64.9 - Anemia, unspecified Status: Acute (9) right forearm swelling Status: Acute (10) Swelling of left knee joint ICD Codes: M25.462 - Effusion, left knee Status: Acute Assessment and Plan 72-year-old white male with 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 Admitted for chemotherapy induction. Acute myeloblastic leukemia Pancytopenia -Dr. Ibanez managing -completed chemo 05/23 -Continue with blood product replacement is needed -Monitor for bone marrow recovery -CT guided bone marrow bx 06/01, results back. Minimal residual disease. -continue with blood product replacement per heme Coagulopathy -Monitor for bleeding - fibrinogen levels per oncology, elevated. GERD Sanford esophagus -Continue Protonix 20 mg by mouth daily Anxiety and depression -Continue with Celexa 20 mg by mouth daily -continue Xanax PRN Confused, likely metabolic encephalopathy -CT head no acute findings -limit narcotics -continue to reorient frequently, inc. mobility -remains poorly motivated. Enc. out of bed Familial tremor, stable -continue with medical management Left knee and right shoulder pain, ? septic joint, effusion -MRI left knee noted, joint effusion, unable to have arthrocentesis due to low platelets. -ID has been consulted, input appreciated -Ortho following, input appreciated -Continue with empiric antibiotic -Continue with Allopurinol 100 mg po bid -Continue Goodman PRN -s/p arthro-centesis , fluid appeared bloody Gram stain and c/s neg Cell count noted Positive blood cultures, ? Bacteremia, left knee effusion. -Appreciate ID input -Continue with empiric antibiotics per ID -Cefepime, Micafungin, Vanco -Blood and line cultures positive for Staph epi -per ID, no need to remove port -febrile overnight, BC x 2, CXR unchanged. Coagulopathy any acute bleeding -INR 1.5, Vit K given per heme Right arm swelling, positive for DVT cephalic vein -Elevate arm as needed -Warm compresses -no anticoagulation recommended at this time due to low platelets. -right arm swelling improved, faint erythema Protein calorie malnutrition -calorie count -continue TPN -remains anorexic, TPN rate adjusted. No SCDs or anticoagulation recommended at this time due to thrombocytopenia Continue Protonix for GI prophylaxis PT and OT to increase mobility Condition guarded bone marrow recovery in progress, Pt. remains debilitated, not very motivated. follow labs in am D/W RN D/W pt D/W Dr. Obrien Patient was seen by myself and Dr. Obrien, this note is written on his behalf Problem Qualifiers (1) AML (acute myeloblastic leukemia): Qualified Codes: C92.00 - Acute myeloblastic leukemia, not having achieved remission (2) Anemia: Viola Sanon Jun 13, 2017 13:52
[2017-06-13] MEDS ORDERED: POTASSIUM CHLORIDE 10 MEQ CONTROLLED RELEASE TAB PO ONE (15:30)
[2017-06-13] MEDS ORDERED: POTASSIUM CHLOR 10 MEQ PREMIX 100 ML IV ONE (15:30)
[2017-06-13] MEDS: MICAFUNGIN INJ 150 MG in SODIUM CHLORIDE 0.9% INJ 100 ML IV SCH (16:40)
[2017-06-13] MEDS: CLINIMIX E 4.25/25 1000 mL- </= 42 mls/hr IV-CENTRAL SCH ×3 (16:41)
--- NOTE | 2017-06-13 19:11 | HHI.PR ---
Addendum to Inpatient Note Additional Information pt seen around 1845 full note to follow + low grade fever all clx remain negative + loose BMs cont vanco, cefepime, gareth fu P BC dw H Marta Westbrook Rn, MD Jun 13, 2017 19:11
[2017-06-13] MEDS: FAT EMULSION 20% INJ 250 ML (@10 mls/hr) IV-CENTRAL SCH (20:11)
--- NOTE | 2017-06-13 23:12 | HHI.IDPN ---
Subjective Subjective Remarks Delayed entry- pt seen around 1845 pt cont to have low grade fever all clx remain negative he co loose BMs no abd pain no cough or SOB Antibiotics vanco cefepime micafungin Allergies: Coded Allergies: No Known Allergies (Unverified , 05/10/17) Objective . Vital Signs Date Time Temp Pulse Resp B/P (MAP) Pulse Ox O2 Delivery O2 Flow Rate FiO2 06/13/17 20:00 98.9 86 18 136/73 (94) 98 06/13/17 16:00 99.4 85 14 151/79 (103) 98 06/13/17 12:00 100.2 69 16 137/79 (98) 96 06/13/17 08:00 100.8 77 16 168/84 (112) 94 06/13/17 04:00 99.1 69 17 131/60 (83) 95 06/13/17 04:00 76 06/13/17 01:15 100.5 06/13/17 00:00 83 06/13/17 00:00 101.4 81 17 128/70 (89) 96 06/13/17 06/13/17 06/14/17 15:00 23:00 07:00 Intake Total 200 ml Output Total 1100 ml Balance -900 ml Intake Oral 200 ml Output Urine Total 1100 ml # Bowel Movements 0 . Laboratory Tests Test 06/12/17 08:15 06/13/17 05:00 White Blood Count 0.2 TH/MM3 0.1 TH/MM3 Red Blood Count 2.52 MIL/MM3 2.40 MIL/MM3 Hemoglobin 7.3 GM/DL 7.0 GM/DL Hematocrit 21.6 % 20.8 % Mean Corpuscular Volume 85.8 FL 86.7 FL Mean Corpuscular Hemoglobin 29.1 PG 29.0 PG Mean Corpuscular Hemoglobin Concent 34.0 % 33.5 % Red Cell Distribution Width 14.9 % 15.0 % Platelet Count 28 TH/MM3 18 TH/MM3 Mean Platelet Volume 7.4 FL 7.8 FL CBC Comment AUTO DIFF AUTO DIFF Differential Total Cells Counted 20 15 Neutrophils % (Manual) 5 % Band Neutrophils % 5 % 7 % Lymphocytes % 85 % 93 % Neutrophils # (Manual) 0.0 TH/MM3 0.0 TH/MM3 Metamyelocytes 5 % Differential Comment FINAL DIFF MANUAL FINAL DIFF MANUAL Platelet Estimate LOW RARE Platelet Morphology Comment NORMAL NORMAL Laboratory Tests Test 06/12/17 08:15 06/13/17 05:00 Blood Urea Nitrogen 13 MG/DL 15 MG/DL Creatinine 0.90 MG/DL 0.83 MG/DL Random Glucose 129 MG/DL 137 MG/DL Total Protein 6.2 GM/DL 6.0 GM/DL Albumin 1.8 GM/DL 1.7 GM/DL Calcium Level 8.5 MG/DL 8.2 MG/DL Alkaline Phosphatase 68 U/L 68 U/L Aspartate Amino Transf (AST/SGOT) 12 U/L 13 U/L Alanine Aminotransferase (ALT/SGPT) 38 U/L 39 U/L Lactate Dehydrogenase 85 U/L Total Bilirubin 1.1 MG/DL 1.1 MG/DL Sodium Level 140 MEQ/L 140 MEQ/L Potassium Level 2.9 MEQ/L 3.1 MEQ/L Chloride Level 103 MEQ/L 104 MEQ/L Carbon Dioxide Level 28.9 MEQ/L 28.9 MEQ/L Anion Gap 8 MEQ/L 7 MEQ/L Estimat Glomerular Filtration Rate 83 ML/MIN 92 ML/MIN Phosphorus Level 2.4 MG/DL Microbiology Date/Time Source Procedure Growth Status 06/13/17 01:36 Blood Peripheral Aerobic Blood Culture Pending Received 06/13/17 01:36 Blood Peripheral Anaerobic Blood Culture Pending Received 06/13/17 00:40 Blood Line Aerobic Blood Culture Pending Received 06/13/17 00:40 Blood Line Anaerobic Blood Culture Pending Received 06/11/17 15:39 Blood Peripheral Aerobic Blood Culture - Preliminary NO GROWTH IN 2 DAYS Resulted 06/11/17 15:39 Blood Peripheral Anaerobic Blood Culture - Preliminary NO GROWTH IN 2 DAYS Resulted 06/11/17 15:37 Blood Line Aerobic Blood Culture - Preliminary NO GROWTH IN 2 DAYS Resulted 06/11/17 15:37 Blood Line Anaerobic Blood Culture - Preliminary NO GROWTH IN 2 DAYS Resulted Imaging Last Impressions Chest X-Ray 06/13/17 0600 Signed Impressions: Service Date/Time: Tuesday, June 13, 2017 06:45 - CONCLUSION: Mild basilar airspace disease similar to June 10. Cardiomegaly. Shravan Saldaña MD Brain MRI 06/07/17 0000 Signed Impressions: Service Date/Time: May 17:39 - CONCLUSION: 1. No acute intracranial abnormality. No evidence of encephalitis. 2. Minimal chronic white matter changes. 3. Mild sinus disease. Man Ashton MD Bone Biopsy CT 06/01/17 0600 Signed Impressions: Service Date/Time: Thursday, June 01, 2017 12:15 - CONCLUSION: 1. Uncomplicated CT guided bone marrow aspirate. 2. Uncomplicated CT guided bone marrow biopsy. Siddharth Diamond MD Head CT 05/31/17 1755 Signed Impressions: Service Date/Time: May 19:34 - CONCLUSION: Negative noncontrast head CT. Man Ashton MD Upper Extremity Ultrasound 05/27/17 0000 Signed Impressions: Service Date/Time: Saturday, May 27, 2017 17:01 - CONCLUSION: 1. Acute thrombosis of the cephalic vein in the right forearm. 2. Otherwise, no sonographic evidence for right upper extremity DVT. Yunier Lange MD Shoulder X-Ray 05/25/17 0000 Signed Impressions: Service Date/Time: Thursday, May 25, 2017 14:18 - CONCLUSION: Negative for fracture. MRI of the knee had shown substantial leukemic infiltration. Jason Crawford MD FACR Knee X-Ray 05/25/17 0000 Signed Impressions: Service Date/Time: Thursday, May 25, 2017 14:21 - CONCLUSION: Negative for fracture. Moderate joint effusion. Jason Crawford MD FACR Knee MRI 05/25/17 0000 Signed Impressions: Service Date/Time: Thursday, May 25, 2017 13:35 - CONCLUSION: Joint effusion as described above intense enhancement. Considerations would include both inflammatory process as well as involvement with leukemia Marrow placement show intense enhancement consistent with leukemic infiltration. Jason Crawford MD [facility] 05/15/17 0000 Signed Impressions: Service Date/Time: Monday, May 15, 2017 14:57 - CONCLUSION: Normal study. Ejection fraction 72%% Man Burden MD Catheter Placement X-Ray 05/15/17 0000 Signed Impressions: Service Date/Time: Monday, May 15, 2017 17:46 - CONCLUSION: Uncomplicated line placement as above. Man Burden MD Physical Exam CONSTITUTIONAL/GENERAL: This is an adequately nourished patient, in no apparent distress.Appears much more alert TUBES/LINES/DRAINS: infusaport in place R chest, looks OK, not tender to palpation SKIN: No jaundice, no rash EYES: Pupils equal and round and reactive. Extraocular motions intact. No scleral icterus. No injection or drainage. Fundi not examined. ENT: Hearing grossly normal. Nose without bleeding or purulent drainage. Throat without visible erythema, exudates, masses, or lesions. CARDIOVASCULAR: Regular rate and rhythm without murmurs, gallops, or rubs. No JVD. Peripheral pulses symmetric. RESPIRATORY/CHEST: Symmetric, unlabored respirations. Clear to auscultation. Breath sounds equal bilaterally. No wheezes, rales, or rhonchi. GASTROINTESTINAL: Abdomen soft, non-tender, nondistended. No hepato-splenomegaly , or palpable masses. No guarding. Bowel sounds present. GENITOURINARY: Without palpable bladder distension. MUSCULOSKELETAL: Extremities without clubbing, cyanosis, or edema. + L knee with dressing in place R forearm with no edema, no erythea not tednder NEUROLOGICAL: fully awake alert, not confused Motor and sensory grossly within normal limits. Follows commands. Clear speech. Moves all extremities. PSYCHIATRIC: No obvious anxiety/depression. no apparent hallucinations or other psychotic thought process. Assessment & Plan Remarks MDS with leukemic tranformation sp chemo, neutropenic L knee effusion, doubt septic arthritis - fluid looks hemorrhagic with negative Gstain Staph epi bacteremia source is likely PORT sustained last clx are negative Acute thrombosis of the cephalic vein in the right forearm aw PIV LLL infiltrate Persistent fever, all BC remain negative - cont vancomycin - cont cefepime - cont micafungin - fu repeat blood clx no need to remove PORT at this point monitor Marta Pennington Rn, MD Jun 13, 2017 23:11
[2017-06-13] MEDS: diphenhydrAMINE HCL 25 MG CAP PO PRN (23:23)
[2017-06-13] MEDS ORDERED: PHYTONADIONE 5 MG TAB PO ONE (23:30)
[2017-06-14] VITALS (12 sets, daily range): BP systolic 124–161; BP diastolic 50–84; PULSE 73–114; RESP 17–20; TEMP 96.9–101.2; O2SAT 94–98
[2017-06-14] MEDS ORDERED: HYDROCORTISONE SOD SUCCINATE 100 MG VIAL IV PUSH ONE (00:45)
[2017-06-14] MEDS: CEFEPIME INJ 2,000 MG in SODIUM CHLORIDE 0.9% INJ 100 ML IV SCH ×3 (04:05→18:46)
[2017-06-14 04:42] LABS: HEMATOCRIT 22.5 % (39.0-51.0); MEAN CELL VOLUME 86.7 FL (80.0-100.0); MEAN CORPUSCULAR HEMOGLOBIN 29.3 PG (27.0-34.0); MEAN CORPUSCULAR HGB CONC 33.8 % (32.0-36.0); RED CELL DISTRIBUTION WIDTH 15.2 % (11.6-17.2); WHITE BLOOD COUNT 0.1 TH/MM3 (4.0-11.0)
[2017-06-14 04:51] LABS: APTT (PATIENT) 32.8 SEC (24.3-30.1); INTERNATIONAL NORMALIZED RATIO 1.5 RATIO; PROTHROMBIN TIME - PATIENT 16.6 SEC (9.8-11.6)
[2017-06-14 05:12] LABS: ALT (GPT) 60 U/L (12-78); ANION GAP 6 MEQ/L (5-15); AST (GOT) 26 U/L (15-37); BICARBONATE 27.7 MEQ/L (21.0-32.0); BLOOD UREA NITROGEN 14 MG/DL (7-18); CHLORIDE 105 MEQ/L (98-107); GLOMERULAR FILTRATION RATE 100 ML/MIN (>89); MAGNESIUM 1.9 MG/DL (1.5-2.5); POTASSIUM 3.5 MEQ/L (3.5-5.1); SODIUM (NA) 139 MEQ/L (136-145)
[2017-06-14 05:13] LABS: ALKALINE PHOSPHATASE 77 U/L (45-117); HEMO FLAGS AUTO DIFF
[2017-06-14 05:14] LABS: TOTAL BILIRUBIN ADULT 1.3 MG/DL (0.2-1.0)
[2017-06-14 05:15] LABS: PLATELET COUNT 12 TH/MM3 (150-450)
[2017-06-14] MEDS: VANCOMYCIN INJ 1,500 MG in SODIUM CHLORID 0.9% 500 ML INJ 500 ML IV SCH ×2 (08:09→20:35)
[2017-06-14 08:25] LABS: BASOPHILS 5 % (0-2); PLATELET ESTIMATE SMEAR RARE (NORMAL); PLATELET MORPHOLOGY NORMAL (NORMAL); SCAN/DIFF FINAL DIFF MANUAL; WBC DIFF SAMPLE 20
[2017-06-14] MEDS: PANTOPRAZOLE SOD 20 MG DELAYED RELEASE TAB PO SCH (08:42)
[2017-06-14] MEDS: CITALOPRAM HYDROBROMIDE 20 MG TAB PO SCH (08:42)
[2017-06-14] MEDS: MEGESTROL ACETATE SUSP 400 MG/10 ML CUP PO SCH (08:42)
[2017-06-14] MEDS: POTASSIUM CHLORIDE 10 MEQ CONTROLLED RELEASE TAB PO SCH (08:42)
[2017-06-14] MEDS: NYSTAT/DIPHENHY/LIDO MOUTHWASH (Adult) 120ML SWISH-SWAL SCH ×4 (08:42→20:39)
--- NOTE | 2017-06-14 09:06 | PD.ONC.PN ---
Subjective Subjective Remarks Tmax 101.2 overnight. Patient frustrated that he is still in the hospital. Remains a bit confused. Asking for pancakes for breakfast. Objective Data Date Time Temp Pulse Resp B/P (MAP) Pulse Ox O2 Delivery O2 Flow Rate FiO2 06/14/17 04:00 73 06/14/17 04:00 98.0 84 18 149/73 95 06/14/17 02:00 99.6 73 19 144/77 94 06/14/17 01:40 98.9 86 20 151/84 96 06/14/17 00:05 101.2 82 20 136/79 95 06/14/17 00:00 96.9 87 17 124/79 (94) 98 06/14/17 00:00 86 06/13/17 20:00 90 06/13/17 20:00 98.9 86 18 136/73 (94) 98 06/13/17 16:00 99.4 85 14 151/79 (103) 98 06/13/17 12:00 100.2 69 16 137/79 (98) 96 06/14/17 06/14/17 06/14/17 07:00 15:00 23:00 Intake Total 350 ml Output Total 650 ml Balance -300 ml Result Diagram: 06/14/17 0415 06/14/17 0415 Laboratory Results Laboratory Tests Test 06/14/17 04:15 White Blood Count 0.1 TH/MM3 Red Blood Count 2.60 MIL/MM3 Hemoglobin 7.6 GM/DL Hematocrit 22.5 % Mean Corpuscular Volume 86.7 FL Mean Corpuscular Hemoglobin 29.3 PG Mean Corpuscular Hemoglobin Concent 33.8 % Red Cell Distribution Width 15.2 % Platelet Count 12 TH/MM3 Mean Platelet Volume 8.0 FL CBC Comment AUTO DIFF Differential Total Cells Counted 20 Lymphocytes % 95 % Basophils % 5 % Neutrophils # (Manual) 0.0 TH/MM3 Differential Comment FINAL DIFF MANUAL Platelet Estimate RARE Platelet Morphology Comment NORMAL Prothrombin Time 16.6 SEC Prothromb Time International Ratio 1.5 RATIO Activated Partial Thromboplast Time 32.8 SEC Blood Urea Nitrogen 14 MG/DL Creatinine 0.77 MG/DL Random Glucose 159 MG/DL Total Protein 6.1 GM/DL Albumin 1.7 GM/DL Calcium Level 8.0 MG/DL Phosphorus Level 2.5 MG/DL Magnesium Level 1.9 MG/DL Alkaline Phosphatase 77 U/L Aspartate Amino Transf (AST/SGOT) 26 U/L Alanine Aminotransferase (ALT/SGPT) 60 U/L Total Bilirubin 1.3 MG/DL Sodium Level 139 MEQ/L Potassium Level 3.5 MEQ/L Chloride Level 105 MEQ/L Carbon Dioxide Level 27.7 MEQ/L Anion Gap 6 MEQ/L Estimat Glomerular Filtration Rate 100 ML/MIN Culture Results Microbiology Date/Time Source Procedure Growth Status 06/14/17 00:30 Blood Line Aerobic Blood Culture Pending Received 06/14/17 00:30 Blood Line Anaerobic Blood Culture Pending Received 06/13/17 01:36 Blood Peripheral Aerobic Blood Culture Pending Received 06/13/17 01:36 Blood Peripheral Anaerobic Blood Culture Pending Received 06/13/17 00:40 Blood Line Aerobic Blood Culture Pending Received 06/13/17 00:40 Blood Line Anaerobic Blood Culture Pending Received 06/11/17 15:39 Blood Peripheral Aerobic Blood Culture - Preliminary NO GROWTH IN 2 DAYS Resulted 06/11/17 15:39 Blood Peripheral Anaerobic Blood Culture - Preliminary NO GROWTH IN 2 DAYS Resulted 06/11/17 15:37 Blood Line Aerobic Blood Culture - Preliminary NO GROWTH IN 2 DAYS Resulted 06/11/17 15:37 Blood Line Anaerobic Blood Culture - Preliminary NO GROWTH IN 2 DAYS Resulted Administered Medications Medications (Trade) Dose Ordered Sig/Ivelisse Route PRN Reason Start Time Stop Time Status Last Admin Dose Admin Acetaminophen (Tylenol) 650 mg Q4H PRN PO fever>100.4 05/15/17 13:00 06/13/17 23:23 Citalopram Hydrobromide (CeleXA) 20 mg DAILY PO 05/16/17 09:00 06/14/17 08:42 Pantoprazole Sodium (Protonix) 20 mg DAILY PO 05/16/17 09:00 06/14/17 08:42 Ondansetron HCl (Zofran Inj) 4 mg Q6HR PRN IV PUSH nausea 05/15/17 14:00 05/16/17 10:30 Sodium Chloride (NS Flush) 5 ml UNSCH PRN IVF SEE PROTOCOL 05/15/17 15:00 06/11/17 08:44 Heparin Sodium (Porcine) (Heparin Central Flush) 250 units UNSCH PRN IV FLUSH SEE PROTOCOL 05/15/17 15:00 06/12/17 03:18 Sodium Chloride (NS Flush) UNSCH PRN IVF SEE PROTOCOL 05/15/17 18:45 06/12/17 03:18 Trimethoprim/ Sulfamethoxazole (Bactrim Ds 800-160 Mg) 1 tab MoWeFr@09 PO 05/16/17 09:00 Future Hold 05/25/17 08:37 Multi-Ingredient Mouthwash/Gargle (Magic Mouthwash Adult Liq) 5 ml QID SWISH-SWAL 05/16/17 13:00 06/14/17 08:42 Megestrol Acetate (Megace Liq) 300 mg DAILY PO 05/16/17 14:00 06/14/17 08:42 Magnesium Hydroxide (Milk Of Magnesia Liq) 30 ml DAILY PRN PO CONSTIPATION 05/21/17 11:30 06/06/17 13:20 Vancomycin HCl 1500 mg/Sodium Chloride 515 ml @ 250 mls/hr Q12H IV 05/26/17 08:00 06/14/17 08:09 Tramadol HCl (Ultram) 25 mg Q6H PRN PO PAIN 06/03/17 06:45 Future Hold 06/06/17 03:37 Cefepime HCl 2000 mg/Sodium Chloride 100 ml @ 200 mls/hr Q8H IV 06/06/17 02:00 06/14/17 04:05 Alprazolam (Xanax) 0.25 mg Q8H PRN PO anxiety 06/06/17 10:15 Future Hold 06/08/17 02:39 Potassium Chloride (KCl) 30 meq DAILY PO 06/08/17 12:00 06/14/17 08:42 Micafungin Sodium 150 mg/Sodium Chloride 100 ml @ 100 mls/hr Q24H IV 06/08/17 18:00 06/13/17 16:40 Diphenhydramine HCl (Benadryl) 25 mg Q4H PRN PO SEE LABEL COMMENTS 06/09/17 14:30 06/13/17 23:23 Multivitamins 10 ml/Folic Acid 1 mg/Amino Acids/ Electrolytes/ Dextrose 1,010.2 ml @ 42 mls/hr Q24H IV-CENTRAL 06/09/17 20:00 06/13/17 16:41 Fat Emulsion Intravenous 250 ml @ 10 mls/hr Q24H IV-CENTRAL 06/09/17 20:00 06/13/17 20:11 Objective Remarks GENERAL: Elderly male sitting up in bed, anxious. SKIN: Warm and dry. HEAD: Normocephalic. EYES: No injection or drainage. NECK: Supple, trachea midline. CARDIOVASCULAR: +S1/S2 RESPIRATORY: anterior campo clear. GASTROINTESTINAL: Abdomen soft, non-tender, nondistended. EXTREMITIES: No cyanosis. Left knee mildly swollen with yudi bandage in place. NEUROLOGICAL: awake. normal speech. moving extremities. Assessment/Plan Problem List: (1) AML (acute myeloblastic leukemia) ICD Codes: C92.00 - Acute myeloblastic leukemia, not having achieved remission Plan: 05/15/17: Admission. given Hydrea. [facility] performed Leukapheresis bringing WBC from >100K to 44K. 05/16/17: D1. SONIA-C + [facility]. 1 unit pRBC 05/17/17: D2. no transfusion. tolerating chemo 05/19/17: D4. 1 unit platelets today. No evidence of tumor lysis. Pt finished idarubicin yesterday. Continue SONIA-C. 05/20/17 D5: 1 unit platelets, 2 units PRBC's today. Will add on xanax prn and 1mg xanax at HS scheduled. Continue chemo, continue to monitor blood counts. 05/23/17: D8: Pt to have final bag chemo hung tonight. Transfuse 1 unit irradiated platelets, 1 unit irradiated PRBC's today. 05/24/17: D9: We'll transfuse 1 unit irradiated packed red blood cells today for hemoglobin of 6.9 05/25/17: D10. transfuse 1 unit platelets. pain in left knee and right shoulder. swelling in left knee. 06/12/17: D28. 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 --He presented with hyperleukocytosis and acute blast crises. (2) Pancytopenia ICD Codes: D61.818 - Other pancytopenia Status: Acute Plan: --transfuse him for hemoglobin of 7 or less. -- irradiated/CMV-negative blood products. --transfuse for platelet count of 10 or less. --Diflucan 100mg daily, Acyclovir 400mg PO BID (3) Coagulopathy ICD Codes: D68.9 - Coagulation defect, unspecified Status: Acute Plan: --monitor coags, fibrinogen, LDH and haptoglobin (4) Swelling of left knee joint ICD Codes: M25.462 - Effusion, left knee Status: Acute Plan: --diff dx includes but is not limited to gout vs pseudogout, vs. hemarthrosis vs. septic joint vs. arthritis. --MRI of knee shows joint effusion, unable to tap until counts recover --on abx. ID following. --ortho saw patient on 05/30 and recommends medical management, close observation and intervention if symptoms worsen (5) Sepsis ICD Codes: A41.9 - Sepsis, unspecified organism Plan: --ID following --BC 06/13: BC pending. --BC 06/11: BC no growth --BC on 06/09 showed no growth --+BC, 05/26--[facility] --on Cefepime, Vanco and Micafungin (6) Protein-calorie malnutrition, moderate ICD Codes: E44.0 - Moderate protein-calorie malnutrition Status: Acute Plan: -started on TPN on 06/09 Assessment 72y/o male with acute myeloid leukemia with blast crisis. 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 Plan 1. continue TPN 2. monitor blood cultures 3. continue antibiotics. Attending Statement The exam, history, and the medical decision-making described in the above note were completed with the assistance of the mid-level provider. I reviewed and agree with the findings presented. I attest that I had a [id number] encounter with the patient on the same day, and personally performed and documented my assessment and findings in the medical record. remains bedbound and severely deconditioned Unwilling to participate in PT oral intake -->remains poor. says he ate breakfast continue TPN Palliative care saw patient to discuss goals of care. INR elevated due to malnutrition daily Vitamin K spiking fevers//? drug related. Blood cultures negative d/w rn o/n events reviewed Problem Qualifiers (1) AML (acute myeloblastic leukemia): Qualified Codes: C92.00 - Acute myeloblastic leukemia, not having achieved remission Oma Chavez Jun 14, 2017 09:06 Shar Ibanez MD Jun 14, 2017 23:53
[2017-06-14] MEDS: CLINIMIX E 4.25/25 1000 mL- </= 42 mls/hr IV-CENTRAL SCH ×3 (11:09)
[2017-06-14] MEDS ORDERED: POTASSIUM CHLORIDE 25 MEQ EFFERVESCENT TAB PO ONE (14:30)
--- NOTE | 2017-06-14 14:30 | HHI.PR ---
Subjective Remarks a bit disoriented, conversing more today asking about hospital bills tired of being hospitalized fever max 101.2 eating poorly stood with PT yesterday Objective Objective Results - Vital Signs Date Time Temp Pulse Resp B/P (MAP) Pulse Ox O2 Delivery O2 Flow Rate FiO2 06/14/17 12:00 97.6 77 18 134/73 (93) 97 06/14/17 08:00 97.5 75 18 142/63 (89) 97 06/14/17 04:00 73 06/14/17 04:00 98.0 84 18 149/73 95 06/14/17 02:00 99.6 73 19 144/77 94 06/14/17 01:40 98.9 86 20 151/84 96 06/14/17 00:05 101.2 82 20 136/79 95 06/14/17 00:00 96.9 87 17 124/79 (94) 98 06/14/17 00:00 86 06/13/17 20:00 90 06/13/17 20:00 98.9 86 18 136/73 (94) 98 06/13/17 16:00 99.4 85 14 151/79 (103) 98 I/O 06/13/17 06/13/17 06/13/17 06/14/17 06/14/17 06/14/17 07:00 15:00 23:00 07:00 15:00 23:00 Intake Total 480 ml 400 ml 350 ml Output Total 1350 ml 2100 ml 650 ml Balance -870 ml -1700 ml -300 ml Intake Oral 480 ml 400 ml 300 ml IV Total 50 ml Output Urine Total 1350 ml 2100 ml 650 ml # Bowel Movements 1 0 Result Diagram: 06/14/17 0415 06/14/17 0415 Imaging Last Impressions Chest X-Ray 05/16/17 0700 Signed Impressions: Service Date/Time: Tuesday, May 16, 2017 07:41 - CONCLUSION: The lungs are clear. No evidence of pneumothorax. Ethan Sabillon MD [facility] 05/15/17 0000 Signed Impressions: Service Date/Time: Monday, May 15, 2017 14:57 - CONCLUSION: Normal study. Ejection fraction 72%% Man Burden MD Catheter Placement X-Ray 05/15/17 0000 Signed Impressions: Service Date/Time: Monday, May 15, 2017 17:46 - CONCLUSION: Uncomplicated line placement as above. Man Burden MD Other Results Laboratory Tests Test 06/14/17 04:15 White Blood Count 0.1 Red Blood Count 2.60 Hemoglobin 7.6 Hematocrit 22.5 Mean Corpuscular Volume 86.7 Mean Corpuscular Hemoglobin 29.3 Mean Corpuscular Hemoglobin Concent 33.8 Red Cell Distribution Width 15.2 Platelet Count 12 Mean Platelet Volume 8.0 CBC Comment AUTO DIFF Differential Total Cells Counted 20 Lymphocytes % 95 Basophils % 5 Neutrophils # (Manual) 0.0 Differential Comment FINAL DIFF MANUAL Platelet Estimate RARE Platelet Morphology Comment NORMAL Prothrombin Time 16.6 Prothromb Time International Ratio 1.5 Activated Partial Thromboplast Time 32.8 Blood Urea Nitrogen 14 Creatinine 0.77 Random Glucose 159 Total Protein 6.1 Albumin 1.7 Calcium Level 8.0 Phosphorus Level 2.5 Magnesium Level 1.9 Alkaline Phosphatase 77 Aspartate Amino Transf (AST/SGOT) 26 Alanine Aminotransferase (ALT/SGPT) 60 Total Bilirubin 1.3 Sodium Level 139 Potassium Level 3.5 Chloride Level 105 Carbon Dioxide Level 27.7 Anion Gap 6 Estimat Glomerular Filtration Rate 100 Date/Time Source Procedure Growth Status 06/14/17 00:30 Blood Line Aerobic Blood Culture Pending Received 06/14/17 00:30 Blood Line Anaerobic Blood Culture Pending Received 06/07/17 11:15 Fluid Synovial Fluid Gram Stain - Final Complete 06/07/17 11:15 Fluid Synovial Fluid Body Fluid Culture - Final NO GROWTH IN 72 HRS.--AEROBICALLY OR ... 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 SKIN: Petechial rash noted to bilateral pretibial areas. Skin pale and cool to touch HEAD: Atraumatic. Normocephalic. No temporal or scalp tenderness. EYES: Pupils equal round and reactive. Extraocular motions intact. No scleral icterus. No injection or drainage. ENT: Nose without bleeding, purulent drainage or septal hematoma. Throat without erythema, tonsillar hypertrophy or exudate. Uvula midline. Airway patent. NECK: Trachea midline. No JVD or lymphadenopathy. Supple, nontender, no meningeal signs. CARDIOVASCULAR: Regular rate and rhythm without murmurs, gallops, or rubs. RESPIRATORY: Clear to auscultation. Breath sounds equal bilaterally. No wheezes , rales, or rhonchi. Port-A-Cath noted to left chest wall area. GASTROINTESTINAL: Abdomen soft, non-tender, nondistended. No hepato-splenomegaly , or palpable masses. No guarding. MUSCULOSKELETAL: Left knee less tender with flexion. Right shoulder moving better. NEUROLOGICAL: Awakes to voice, disoriented. No focal deficit. Urinary Catheter: No Vascular Central Line Catheter: No A/P Diagnosis: (1) AML (acute myeloblastic leukemia) ICD Codes: C92.00 - Acute myeloblastic leukemia, not having achieved remission (2) Pancytopenia ICD Codes: D61.818 - Other pancytopenia Status: Acute (3) Coagulopathy ICD Codes: D68.9 - Coagulation defect, unspecified Status: Acute (4) Anxiety and depression ICD Codes: F41.8 - Other specified anxiety disorders Status: Chronic (5) Familial tremor ICD Codes: G25.0 - Essential tremor Status: Chronic (6) Protein-calorie malnutrition, moderate ICD Codes: E44.0 - Moderate protein-calorie malnutrition Status: Acute (7) Thrombocytopenia ICD Codes: D69.6 - Thrombocytopenia, unspecified Status: Acute (8) Anemia ICD Codes: D64.9 - Anemia, unspecified Status: Acute (9) right forearm swelling Status: Acute (10) Swelling of left knee joint ICD Codes: M25.462 - Effusion, left knee Status: Acute Assessment and Plan 72-year-old white male with 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 Admitted for chemotherapy induction. Acute myeloblastic leukemia Pancytopenia -Dr. Ibanez managing -completed chemo 05/23 -Continue with blood product replacement is needed -Monitor for bone marrow recovery -CT guided bone marrow bx 06/01, results back. Minimal residual disease. -continue with blood product replacement per heme -waiting for bone marrow recovery Coagulopathy -Monitor for bleeding - fibrinogen levels per oncology, elevated. GERD [place] esophagus -Continue Protonix 20 mg by mouth daily Anxiety and depression -Continue with Celexa 20 mg by mouth daily -continue Xanax PRN Confused, likely metabolic encephalopathy -CT head no acute findings -limit narcotics -continue to reorient frequently, inc. mobility -remains poorly motivated. Enc. out of bed Familial tremor, stable -continue with medical management Left knee and right shoulder pain, ? septic joint, effusion -MRI left knee noted, joint effusion, unable to have arthrocentesis due to low platelets. -ID has been consulted, input appreciated -Ortho following, input appreciated -Continue with empiric antibiotic -Continue with Allopurinol 100 mg po bid -Continue [place] PRN -s/p arthro-centesis , fluid appeared bloody Gram stain and c/s neg Cell count noted Positive blood cultures, ? Bacteremia, left knee effusion. -Appreciate ID input -Continue with empiric antibiotics per ID -Cefepime, Micafungin, Vanco -Blood and line cultures positive for Staph epi -per ID, no need to remove port -febrile overnight, BC x 2, CXR unchanged. Coagulopathy any acute bleeding -INR 1.5, Vit K given per heme Right arm swelling, positive for DVT cephalic vein -Elevate arm as needed -Warm compresses -no anticoagulation recommended at this time due to low platelets. -right arm swelling improved, faint erythema Protein calorie malnutrition -calorie count -continue TPN -remains anorexic, TPN rate adjusted. No SCDs or anticoagulation recommended at this time due to thrombocytopenia Continue Protonix for GI prophylaxis PT and OT to increase mobility Condition guarded bone marrow recovery in progress, Pt. remains debilitated, not very motivated. requested palliative care consultation follow labs in am D/W RN D/W pt D/W Dr. Obrien Patient was seen by myself and Dr. Obrien, this note is written on his behalf Problem Qualifiers (1) AML (acute myeloblastic leukemia): Qualified Codes: C92.00 - Acute myeloblastic leukemia, not having achieved remission (2) Anemia: Viola Sanon Jun 14, 2017 14:30
--- NOTE | 2017-06-14 15:09 | PD.CONS ---
Consult Service Palliative Care Consult Requested By Dr. Ibanez. Primary Care Physician Shar Ibanez MD Reason for Consultation a. To assist with evaluation and management of symptoms including: Debility , decreased appetite. b. To assist medical decision maker(s) with: better understanding of current medical conditions; weighing benefits/burdens of medical treatment options; making medical treatment decisions. . (Nicole Malik) HPI History of Present Illness Mr. 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 Patient originally diagnosed with MDS in early 2015. Patient was treated with Vidaza with good treatment response. As per medical records, patient remained in remission until a few months ago when he became profoundly pancytopenic. At that time, and treatment was stopped. Patient subsequently receiving supportive care with platelets and PRBC transfusions. Patient patient showing progression of disease while on Dacogen for which he received 1 cycle. 10 days prior to admission to the hospital on 05/15/17, patient developed leukocytosis prompting admission for induction chemotherapy. Patient underwent placement of hemodialysis catheter for emergent leukapheresis, WBC 136.4. Upon admission, Hgb 7.2, platelet count 13. Gated heart NM showing EF of 72%. [facility]ist service is consulted on 05/18/17 for medical management. On , infectious disease Dr. Montilla consulted secondary to neutropenic fever. Blood cultures 05/26/17 and 05/26/17 growing a Staphylococcus epidermidis. Follow-up blood cultures with no growth. Patient endorsing swelling of left knee, MRI of joints revealing effusion consistent with leukemic infiltration. Orthopedic, Dr. Sung consulted on 05/30/17, nonsurgical management/close observation recommended given high risk for infection secondary to neutropenic status. 05/29/17 echocardiogram revealing EF of 50-55%. Clinical course complicated by encephalopathy, decreased oral intake. Head CT 05/31/17 negative for acute process. Patient continue with persistent confusion/encephalopathy. Brain MRI 05/30/17 negative for acute process, minimal chronic white matter changes and mild sinus disease found. Throughout this hospitalization, patient has continue requiring supportive care with frequent platelet and PRBC transfusions. Bone marrow biopsy 06/01/17 revealing minimal residual acute myeloid leukemia. Clinical course further complicated by protein calorie malnutrition, patient was started on TPN on . Currently ongoing calorie count. Most recent albumin 1.7 on 06/14/17, decreased from 3.2 upon admission. Patient seen in oncology floor. Patient resting in bed in no acute distress. Endorsing generalized weakness, denies pain or discomfort at this time. Patient alert and oriented x self, place and situation. Frequently confused/ forgetful. Patient has continue with intermittent fevers, Max temperature 101.2 earlier this morning. Continue endorsing left knee pain which is limiting movement. Denies shortness of breath, most recent chest x-ray 06/13/17 revealing mild basilar airspace disease and cardiomegaly. Laboratory workup today revealing WBC 0.1, Hgb 7.6, platelet count 12. Patient stable hemodynamically, tolerating room air with oxygen saturation in the high 90s. Telephone conversation with patient's Cristina Jensen, setup meeting to discuss goals of care for tomorrow Sunday06/15/17 at 10:00 AM. Bedside conversation with patient, obtained past medical history and psychosocial history. Patient deferring any additional conversation to . Case discussed with oncology TEENA Poe and bedside RN Ladan. . Function/Cognitive Trajectory Patient residing independently with prior to this hospitalization. Independent with all ADLs. No cognitive deficit reported. . (Nicole Malik) Review of Systems ROS Limitations: Altered Mental Status Constitutional: COMPLAINS OF: Fatigue, Fever, Weight loss, Change in appetite Endocrine: DENIES: Heat/cold intolerance Eyes: DENIES: Eye inflammation, Eye pain Ears, nose, mouth, throat: DENIES: Hearing loss, Hoarseness, Ear Pain, Running Nose, Epistaxis Respiratory: DENIES: Apneas, Sputum production, Shortness of breath Cardiovascular: COMPLAINS OF: Dyspnea on Exertion, DENIES: Lower Extremity Edema Gastrointestinal: DENIES: Abdominal pain, Nausea, Vomiting Genitourinary: DENIES: Urinary incontinence Musculoskeletal: COMPLAINS OF: Joint pain, Decreased range of motion, DENIES: Back pain Integumentary: DENIES: Pruritus Hematologic/Lymphatics: COMPLAINS OF: Bruising Immunologic/Allergic: DENIES: Eczema Neurologic: COMPLAINS OF: Tremor, Poor Balance Psychiatric: COMPLAINS OF: Anxiety, Confusion, Depression (Malik,Nicole Karley PERL SOFTWARE ENGINEER) Past Family Social History Coded Allergies: No Known Allergies (Unverified , 05/10/17) Past Medical History Myelodysplastic syndrome, 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 Past Surgical History Bone marrow biopsy Cholecystectomy Appendectomy Kidney stone removal Tonsillectomy Hemodialysis catheter placement . Reported Medications Magic Mouthwash Adult Liq (Multi-Ingredient Mouthwash/Gargle) 120 Ml Susp 5 Ml SWISH-SWAL ACHS Sulfamethoxazole-Trimethoprim 800-160 Mg Tab 1 Tab PO BID Cipro (Ciprofloxacin HCl) 250 Mg Tab 250 Mg PO BID Fluconazole 100 Mg Tab 100 Mg PO DAILY Acyclovir 400 Mg Tab 400 Mg PO BID Nystatin Liq 100,000 unit/ml Susp 5 Ml SWISH-SWAL QID Megace Liq (Megestrol Acetate) 40 Mg/Ml Susp 300 Mg PO DAILY Aciphex (Rabeprazole Sodium) 20 Mg Tab 20 Mg PO DAILY Lexapro (Escitalopram Oxalate) 20 Mg Tab 20 Mg PO DAILY Alprazolam 0.5 Mg Tab 0.5 Mg PO TID NEB PRN . Current Medications Medications (Trade) Dose Ordered Sig/Ivelisse Route Start Time Stop Time Status Last Admin (Tylenol) 650 mg Q4H PRN PO 05/15/17 13:00 06/13/17 23:23 (CeleXA) 20 mg DAILY PO 05/16/17 09:00 06/14/17 08:42 (Protonix) 20 mg DAILY PO 05/16/17 09:00 06/14/17 08:42 (Zofran Inj) 4 mg Q6HR PRN IV PUSH 05/15/17 14:00 05/16/17 10:30 (Cathflo Activase Inj) 2 mg UNSCH PRN IVF 05/15/17 15:00 (Heparin Central Flush) 500 units UNSCH IV FLUSH 05/15/17 15:00 (NS Flush) 5 ml UNSCH PRN IVF 05/15/17 15:00 06/11/17 08:44 (Heparin Central Flush) 250 units UNSCH PRN IV FLUSH 05/15/17 15:00 06/12/17 03:18 (NS Flush) UNSCH PRN IVF 05/15/17 18:45 06/12/17 03:18 (Heparin Inj) UNSCH PRN IV FLUSH 05/15/17 18:45 (Bactrim Ds 800-160 Mg) 1 tab MoWeFr@09 PO 05/16/17 09:00 Future Hold 05/25/17 08:37 (Magic Mouthwash Adult Liq) 5 ml QID SWISH-SWAL 05/16/17 13:00 06/14/17 13:11 (Megace Liq) 300 mg DAILY PO 05/16/17 14:00 06/14/17 08:42 (Milk Of Magnesia Liq) 30 ml DAILY PRN PO 05/21/17 11:30 06/06/17 13:20 Pharmacy Profile Note 0 ml @ 0 mls/hr UNSCH OTHER 05/25/17 17:00 Vancomycin HCl 1500 mg/Sodium Chloride 515 ml @ 250 mls/hr Q12H IV 05/26/17 08:00 06/14/17 08:09 (Pill Splitter) 1 ea UNSCH PRN OTHER 06/01/17 10:00 (Ultram) 25 mg Q6H PRN PO 06/03/17 06:45 Future Hold 06/06/17 03:37 Cefepime HCl 2000 mg/Sodium Chloride 100 ml @ 200 mls/hr Q8H IV 06/06/17 02:00 06/14/17 11:56 (Xanax) 0.25 mg Q8H PRN PO 06/06/17 10:15 Future Hold 06/08/17 02:39 (KCl) 30 meq DAILY PO 06/08/17 12:00 06/14/17 08:42 Micafungin Sodium 150 mg/Sodium Chloride 100 ml @ 100 mls/hr Q24H IV 06/08/17 18:00 06/13/17 16:40 (Benadryl) 25 mg Q4H PRN PO 06/09/17 14:30 06/13/17 23:23 Multivitamins 10 ml/Folic Acid 1 mg/Amino Acids/ Electrolytes/ Dextrose 1,010.2 ml @ 60 mls/hr [id number] IV-CENTRAL 06/09/17 20:00 06/14/17 19:59 06/14/17 11:09 Fat Emulsion Intravenous 250 ml @ 10 mls/hr Q24H IV-CENTRAL 9/30/17 20:00 06/13/17 20:11 Multivitamins 10 ml/Folic Acid 1 mg/Amino Acids/ Electrolytes/ Dextrose 2,010.2 ml @ 60 mls/hr Q24H IV 06/14/17 20:00 Family History No family history of leukemia. Substance Use Tobacco: Denies. Alcohol: Socially. Prescription med abuse: Denies. Illicits: Frequent cannabis use for appetite stimulant. . Psychosocial History Patient originally from [place], moved to [place] when he was 23 years old. Patient has been to current for the past 24 years, 1 biological son who 21 years ago. No service. 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 . Spiritual/Cultural Factors No restoration affiliation. . (Nicole Malik) Living Will: Copy in medical record Health Care Surrogate: Copy in medical record Date completed: 03/15/17. Health Care Surrogate(s): Patient designated his Cristina Banks as healthcare surrogate decision maker. . Documented care wishes: Living will with standard verbiage as it relates to terminal condition, end- stage condition, or persistent vegetative state. . Ethical and Legal Issues No ethical legal issues have been identified. . (Nicole Malik) Physical Exam Vital Signs Date Time Temp Pulse Resp B/P (MAP) Pulse Ox O2 Delivery O2 Flow Rate FiO2 06/14/17 12:00 97.6 77 18 134/73 (93) 97 06/14/17 08:00 97.5 75 18 142/63 (89) 97 06/14/17 04:00 73 06/14/17 04:00 98.0 84 18 149/73 95 06/14/17 02:00 99.6 73 19 144/77 94 06/14/17 01:40 98.9 86 20 151/84 96 06/14/17 00:05 101.2 82 20 136/79 95 06/14/17 00:00 96.9 87 17 124/79 (94) 98 06/14/17 00:00 86 06/13/17 20:00 90 06/13/17 20:00 98.9 86 18 136/73 (94) 98 06/13/17 16:00 99.4 85 14 151/79 (103) 98 Exam CONSTITUTIONAL/GENERAL: This is an adequately nourished patient in no apparent distress. TUBES/LINES/DRAINS: PIV's, SKIN: Pale. No jaundice or lesions. Scatter ecchymoses on upper extremities. No wounds seen anteriorly. Skin temperature appropriate. Not diaphoretic. HEAD: Atraumatic. Normocephalic. EYES: Pupils equal and round and reactive. Extraocular motions intact. No scleral icterus. No injection or drainage. ENT: Hearing grossly normal. Nose without bleeding or purulent drainage. Moist oral mucosa. NECK: Trachea midline. Supple, nontender. CARDIOVASCULAR: Regular rate and rhythm. Peripheral pulses symmetric. RESPIRATORY/CHEST: Symmetric, unlabored respirations. Clear to auscultation. Breath sounds equal bilaterally. GASTROINTESTINAL: Abdomen soft, non-tender, nondistended. No guarding. Bowel sounds present. GENITOURINARY: Without palpable bladder distension. MUSCULOSKELETAL: Extremities without clubbing, cyanosis. No mottling or clubbing. NEUROLOGICAL: Awake and alert, confused/forgetful. Motor and sensory grossly within normal limits. Follows commands. Moves all extremities. PSYCHIATRIC: Irritated/anxious at times. . (Nicole Malik) Diagnostic Tests Laboratory Laboratory Tests Test 06/12/17 03:20 06/12/17 08:15 06/13/17 05:00 06/14/17 04:15 Prothrombin Time 16.5 SEC (9.8-11.6) 17.1 SEC (9.8-11.6) 16.6 SEC (9.8-11.6) Prothromb Time International Ratio 1.5 RATIO 1.5 RATIO 1.5 RATIO Activated Partial Thromboplast Time 33.1 SEC (24.3-30.1) 34.5 SEC (24.3-30.1) 32.8 SEC (24.3-30.1) Fibrinogen 522 mg/dL (227-377) White Blood Count 0.2 TH/MM3 (4.0-11.0) 0.1 TH/MM3 (4.0-11.0) 0.1 TH/MM3 (4.0-11.0) Red Blood Count 2.52 MIL/MM3 (4.50-5.90) 2.40 MIL/MM3 (4.50-5.90) 2.60 MIL/MM3 (4.50-5.90) Hemoglobin 7.3 GM/DL (13.0-17.0) 7.0 GM/DL (13.0-17.0) 7.6 GM/DL (13.0-17.0) Hematocrit 21.6 % (39.0-51.0) 20.8 % (39.0-51.0) 22.5 % (39.0-51.0) Mean Corpuscular Volume 85.8 FL (80.0-100.0) 86.7 FL (80.0-100.0) 86.7 FL (80.0-100.0) Mean Corpuscular Hemoglobin 29.1 PG (27.0-34.0) 29.0 PG (27.0-34.0) 29.3 PG (27.0-34.0) Mean Corpuscular Hemoglobin Concent 34.0 % (32.0-36.0) 33.5 % (32.0-36.0) 33.8 % (32.0-36.0) Red Cell Distribution Width 14.9 % (11.6-17.2) 15.0 % (11.6-17.2) 15.2 % (11.6-17.2) Platelet Count 28 TH/MM3 (150-450) 18 TH/MM3 (150-450) 12 TH/MM3 (150-450) Mean Platelet Volume 7.4 FL (7.0-11.0) 7.8 FL (7.0-11.0) 8.0 FL (7.0-11.0) CBC Comment AUTO DIFF AUTO DIFF AUTO DIFF Differential Total Cells Counted 20 15 20 Neutrophils % (Manual) 5 % (16-70) Band Neutrophils % 5 % (0-6) 7 % (0-6) Lymphocytes % 85 % (9-44) 93 % (9-44) 95 % (9-44) Neutrophils # (Manual) 0.0 TH/MM3 (1.8-7.7) 0.0 TH/MM3 (1.8-7.7) 0.0 TH/MM3 (1.8-7.7) Metamyelocytes 5 % (0-1) Differential Comment FINAL DIFF MANUAL FINAL DIFF MANUAL FINAL DIFF MANUAL Platelet Estimate LOW (NORMAL) RARE (NORMAL) RARE (NORMAL) Platelet Morphology Comment NORMAL (NORMAL) NORMAL (NORMAL) NORMAL (NORMAL) Blood Urea Nitrogen 13 MG/DL (7-18) 15 MG/DL (7-18) 14 MG/DL (7-18) Creatinine 0.90 MG/DL (0.60-1.30) 0.83 MG/DL (0.60-1.30) 0.77 MG/DL (0.60-1.30) Random Glucose 129 MG/DL (74-106) 137 MG/DL (74-106) 159 MG/DL (74-106) Total Protein 6.2 GM/DL (6.4-8.2) 6.0 GM/DL (6.4-8.2) 6.1 GM/DL (6.4-8.2) Albumin 1.8 GM/DL (3.4-5.0) 1.7 GM/DL (3.4-5.0) 1.7 GM/DL (3.4-5.0) Calcium Level 8.5 MG/DL (8.5-10.1) 8.2 MG/DL (8.5-10.1) 8.0 MG/DL (8.5-10.1) Alkaline Phosphatase 68 U/L (45-117) 68 U/L (45-117) 77 U/L (45-117) Aspartate Amino Transf (AST/SGOT) 12 U/L (15-37) 13 U/L (15-37) 26 U/L (15-37) Alanine Aminotransferase (ALT/SGPT) 38 U/L (12-78) 39 U/L (12-78) 60 U/L (12-78) Lactate Dehydrogenase 85 U/L (87-241) Total Bilirubin 1.1 MG/DL (0.2-1.0) 1.1 MG/DL (0.2-1.0) 1.3 MG/DL (0.2-1.0) Sodium Level 140 MEQ/L (136-145) 140 MEQ/L (136-145) 139 MEQ/L (136-145) Potassium Level 2.9 MEQ/L (3.5-5.1) 3.1 MEQ/L (3.5-5.1) 3.5 MEQ/L (3.5-5.1) Chloride Level 103 MEQ/L (98-107) 104 MEQ/L (98-107) 105 MEQ/L (98-107) Carbon Dioxide Level 28.9 MEQ/L (21.0-32.0) 28.9 MEQ/L (21.0-32.0) 27.7 MEQ/L (21.0-32.0) Anion Gap 8 MEQ/L (5-15) 7 MEQ/L (5-15) 6 MEQ/L (5-15) Estimat Glomerular Filtration Rate 83 ML/MIN (>89) 92 ML/MIN (>89) 100 ML/MIN (>89) Vancomycin Level Trough 19.8 MCG/ML (5.0-10.0) Phosphorus Level 2.4 MG/DL (2.5-4.9) 2.5 MG/DL (2.5-4.9) Basophils % 5 % (0-2) Magnesium Level 1.9 MG/DL (1.5-2.5) (Nicole Malik) Result Diagram: 06/14/17 0415 06/14/17 0415 Microbiology Microbiology Date/Time Source Procedure Growth Status 06/14/17 00:30 Blood Line Aerobic Blood Culture Pending Received 06/14/17 00:30 Blood Line Anaerobic Blood Culture Pending Received 06/13/17 01:36 Blood Peripheral Aerobic Blood Culture - Preliminary NO GROWTH IN 1 DAY Resulted 06/13/17 01:36 Blood Peripheral Anaerobic Blood Culture - Preliminary NO GROWTH IN 1 DAY Resulted 06/13/17 00:40 Blood Line Aerobic Blood Culture - Preliminary NO GROWTH IN 1 DAY Resulted 06/13/17 00:40 Blood Line Anaerobic Blood Culture - Preliminary NO GROWTH IN 1 DAY Resulted 06/11/17 15:39 Blood Peripheral Aerobic Blood Culture - Preliminary NO GROWTH IN 3 DAYS Resulted 06/11/17 15:39 Blood Peripheral Anaerobic Blood Culture - Preliminary NO GROWTH IN 3 DAYS Resulted 06/11/17 15:37 Blood Line Aerobic Blood Culture - Preliminary NO GROWTH IN 3 DAYS Resulted 06/11/17 15:37 Blood Line Anaerobic Blood Culture - Preliminary NO GROWTH IN 3 DAYS Resulted Imaging Last Impressions Chest X-Ray 06/13/17 0600 Signed Impressions: Service Date/Time: Tuesday, June 13, 2017 06:45 - CONCLUSION: Mild basilar airspace disease similar to June 10. Cardiomegaly. Shravan Saldaña MD Brain MRI 06/07/17 0000 Signed Impressions: Service Date/Time: May 17:39 - CONCLUSION: 1. No acute intracranial abnormality. No evidence of encephalitis. 2. Minimal chronic white matter changes. 3. Mild sinus disease. Man Ashton MD Bone Biopsy CT 06/01/17 0600 Signed Impressions: Service Date/Time: Thursday, June 01, 2017 12:15 - CONCLUSION: 1. Uncomplicated CT guided bone marrow aspirate. 2. Uncomplicated CT guided bone marrow biopsy. Siddharth Diamond MD Head CT 05/31/17 1755 Signed Impressions: Service Date/Time: May 19:34 - CONCLUSION: Negative noncontrast head CT. Man Ashton MD Upper Extremity Ultrasound 05/27/17 0000 Signed Impressions: Service Date/Time: Saturday, May 27, 2017 17:01 - CONCLUSION: 1. Acute thrombosis of the cephalic vein in the right forearm. 2. Otherwise, no sonographic evidence for right upper extremity DVT. Yunier Lange MD Shoulder X-Ray 05/25/17 0000 Signed Impressions: Service Date/Time: Thursday, May 25, 2017 14:18 - CONCLUSION: Negative for fracture. MRI of the knee had shown substantial leukemic infiltration. Jason Crawford MD FACR Knee X-Ray 05/25/17 0000 Signed Impressions: Service Date/Time: Thursday, May 25, 2017 14:21 - CONCLUSION: Negative for fracture. Moderate joint effusion. Jason Crawford MD FACR Knee MRI 05/25/17 0000 Signed Impressions: Service Date/Time: Thursday, May 25, 2017 13:35 - CONCLUSION: Joint effusion as described above intense enhancement. Considerations would include both inflammatory process as well as involvement with leukemia Marrow placement show intense enhancement consistent with leukemic infiltration. Jason Crawford MD FACR Gated Heart Nuclear Medicine 05/15/17 0000 Signed Impressions: Service Date/Time: Monday, May 15, 2017 14:57 - CONCLUSION: Normal study. Ejection fraction 72%% Man Burden MD Catheter Placement X-Ray 05/15/17 0000 Signed Impressions: Service Date/Time: Monday, May 15, 2017 17:46 - CONCLUSION: Uncomplicated line placement as above. Man Burden MD Procedures 06/01/17 -CT-guided biopsy of bone marrow 05/15/17 -hemodialysis catheter placement . (Nicole Malik) Patient/Family Conference Present at Family Conference: Patient, Cristina via telephone. . Family Conference Time (mins): 33 Family Conference Location: Bedside, Telephone Issues Discussed: * Palliative care role, purpose, approach * Additional medical, psychosocial, and spiritual history * Patients general health, functional status, and cognitive changes in the months leading up to the current hospitalization * Questions answered to the best of my ability * Palliative care contact information provided . (Nicole Malik) Assessment and Plan Disease Oriented Problem List: (1) AML (acute myeloblastic leukemia) (2) Thrombocytopenia (3) Anemia (4) Swelling of left knee joint (5) Protein-calorie malnutrition, moderate Symptom Scale: (1) Debility 0-10 Scale: Unable to quantify Comment: Progressive given illness and prolonged hospitalization. (2) Poor appetite 0-10 Scale: Unable to quantify Comment: Ongoing calorie count at this time. Pertinent Non-Medical Issues Psychosocial: Patient originally from [place], moved to [place] when he was 23 years old. Patient has been to current for the past 24 years, 1 biological son who 21 years ago. No service. 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 Spiritual: No restoration affiliation. Legal: Advance directives completed. Ethical issues impacting care: No legal or ethical issues identified. . Important Contacts Cristina Banks , . . Prognosis Mr. 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 Patient originally diagnosed with MDS in early 2015. Patient showing progression of disease status post chemotherapy. He was admitted on 05/15/17 for induction therapy given and emergent leukapheresis. Patient's clinical course complicated by persistent neutropenia with fevers, malnutrition, poor oral intake and profound physical deconditioning. Patient at high risk for further complications, continue decline and . . Plan * CODE STATUS: full code by default. Patient's verbalized NOT wishing "to code him", however, deferred goals of care conversation until meeting scheduled for tomorrow. * HEALTHCARE DECISION-MAKING: Patient confused given encephalopathy, deferring any conversation to his . Advance directives secured, patient designated his Cristina Banks as healthcare surrogate decision maker. * GOALS OF CARE: Not addressed at this time. Family meeting with patient and his scheduled for tomorrow Sunday06/15/17 at 10:00 AM to discuss goals of care. Case has been discussed with oncology TEENA Poe. * SYMPTOMS: = Poor appetite, decreased oral intake. Malnutrition with albumin 1.7. Patient started on TPN on 06/09/17. Currently undergoing calorie count, to be completed on 06/15/17. Currently on Megace daily. = Debility, progressive secondary to acute illness, clinical complications and prolonged hospitalization. PT/OT following, patient with poor motivation. History of depression, currently on Celexa. * Case discussed with oncology PA. Lui and bedside RN Ladan. * Palliative care contact information has been provided to patient and . * Palliative care will continue to follow-up for further clarifications of goals of care as patient's clinical course continue to evolve. . (Nicole Malik) Time Spent Total Floor Time (mins): 52 (Total time to include review and summarization of available medical records, physical exam, conversation with patient and , case discussion with oncology and bedside RN.) >50% Counseling/Coord of Care: Yes (Nicole Malik) Thank you for the opportunity to participate in the care of Mr. Banks. (Nicole Malik) Attestation To help prompt me to consider important information that might be impacting today's encounter and assessment, information from prior notes written by myself or my colleagues may have been "brought forward" into today's note. My signature on this note, however, is an attestation that I personally performed the exam, history, and/or decision-making noted today, and, unless otherwise indicated, the interactions with patient, family, and staff as well as the review of records all occurred today. I also attest that the listed assessment and stated plan reflect my best clinical judgment today based on the combination of historical information, prior notes, and today's exam/ interactions. When time spent is documented, it refers only to time spent today by the signer, or if indicated, combined time spent today by collaborating physician/nurse practitioner. (Nicole Malik) Collaborating MD Comments Chart reviewed. Case discussed with palliative care PERL SOFTWARE ENGINEER. Above PERL SOFTWARE ENGINEER note reviewed and I concur. . (Erwin Clark MD) Nicole Malik Jun 14, 2017 15:09 Erwin Clark MD Jun 17, 2017 18:32
[2017-06-14] MEDS: MICAFUNGIN INJ 150 MG in SODIUM CHLORIDE 0.9% INJ 100 ML IV SCH (17:36)
[2017-06-14] MEDS: MULTIVITAMIN INJ 10 ML, FOLIC ACID INJ 1 MG in AMINO ACID IN D5W W/ELECTROLYT 2,000 ML IV SCH ×3 (20:35)
[2017-06-14] MEDS: FAT EMULSION 20% INJ 250 ML (@10 mls/hr) IV-CENTRAL SCH (20:35)
[2017-06-15] VITALS (10 sets, daily range): BP systolic 123–151; BP diastolic 67–93; PULSE 69–89; RESP 17–20; TEMP 97.8–99.9; O2SAT 94–98
[2017-06-15] MEDS: CEFEPIME INJ 2,000 MG in SODIUM CHLORIDE 0.9% INJ 100 ML IV SCH ×3 (01:33→18:19)
[2017-06-15 06:24] LABS: HEMATOCRIT 22.1 % (39.0-51.0); MEAN CELL VOLUME 85.9 FL (80.0-100.0); MEAN CORPUSCULAR HEMOGLOBIN 29.1 PG (27.0-34.0); MEAN CORPUSCULAR HGB CONC 33.9 % (32.0-36.0); RED BLOOD COUNT 2.58 MIL/MM3 (4.50-5.90); RED CELL DISTRIBUTION WIDTH 14.9 % (11.6-17.2); WHITE BLOOD COUNT 0.2 TH/MM3 (4.0-11.0)
[2017-06-15 06:25] LABS: HEMO FLAGS AUTO DIFF
[2017-06-15 06:28] LABS: PLATELET COUNT 10 TH/MM3 (150-450)
[2017-06-15 06:29] LABS: APTT (PATIENT) 32.4 SEC (24.3-30.1); INTERNATIONAL NORMALIZED RATIO 1.5 RATIO; PROTHROMBIN TIME - PATIENT 16.6 SEC (9.8-11.6)
[2017-06-15 06:59] LABS: ALKALINE PHOSPHATASE 87 U/L (45-117); ALT (GPT) 115 U/L (12-78); ANION GAP 7 MEQ/L (5-15); AST (GOT) 55 U/L (15-37); BICARBONATE 28.1 MEQ/L (21.0-32.0); BLOOD UREA NITROGEN 14 MG/DL (7-18); CHLORIDE 104 MEQ/L (98-107); GLOMERULAR FILTRATION RATE 106 ML/MIN (>89); POTASSIUM 3.1 MEQ/L (3.5-5.1); SODIUM (NA) 139 MEQ/L (136-145); TOTAL BILIRUBIN ADULT 1.5 MG/DL (0.2-1.0)
[2017-06-15 07:51] LABS: BANDS 5 % (0-6); METAMYELOCYTES 10 % (0-1); NEUTROPHIL # MANUAL DIFF 0.1 TH/MM3 (1.8-7.7); POLYS (SEG NEUTROPHILS) 20 % (16-70); WBC DIFF SAMPLE 20
[2017-06-15 07:52] LABS: PLATELET ESTIMATE SMEAR RARE (NORMAL); PLATELET MORPHOLOGY NORMAL (NORMAL); TOXIC GRANULATION 2+ (NORMAL)
[2017-06-15] MEDS: NYSTAT/DIPHENHY/LIDO MOUTHWASH (Adult) 120ML SWISH-SWAL SCH ×4 (08:01→19:41)
[2017-06-15] MEDS: POTASSIUM CHLORIDE 10 MEQ CONTROLLED RELEASE TAB PO SCH (08:02)
[2017-06-15] MEDS: PANTOPRAZOLE SOD 20 MG DELAYED RELEASE TAB PO SCH (08:02)
[2017-06-15] MEDS: VANCOMYCIN INJ 1,500 MG in SODIUM CHLORID 0.9% 500 ML INJ 500 ML IV SCH ×2 (08:02→19:38)
[2017-06-15] MEDS: CITALOPRAM HYDROBROMIDE 20 MG TAB PO SCH (08:02)
[2017-06-15] MEDS: MEGESTROL ACETATE SUSP 400 MG/10 ML CUP PO SCH (08:02)
[2017-06-15] MEDS: ONDANSETRON HCL 4 MG/2 ML VIAL IV PUSH PRN (08:15)
[2017-06-15] MEDS ORDERED: PHYTONADIONE 5 MG TAB PO ONE (09:00)
--- NOTE | 2017-06-15 09:06 | PD.ORT.PN ---
Subjective Subjective Remarks Sitting at bedside commode. States that pain in knee has continued to improve slightly Objective Vitals Vital Signs Date Time Temp Pulse Resp B/P (MAP) Pulse Ox O2 Delivery O2 Flow Rate FiO2 06/15/17 08:58 99.9 84 18 151/93 (112) 96 06/15/17 06:00 98.7 81 20 141/79 (99) 97 06/15/17 00:00 99.0 84 18 142/67 (92) 98 06/14/17 21:15 114 06/14/17 20:00 99.9 90 20 161/78 (105) 97 06/14/17 17:40 99.4 06/14/17 16:00 98.9 82 20 136/50 (78) 98 06/14/17 12:00 97.6 77 18 134/73 (93) 97 I/O 06/14/17 06/14/17 06/14/17 06/15/17 06/15/17 06/15/17 07:00 15:00 23:00 07:00 15:00 23:00 Intake Total 350 ml 515 ml 1170 ml 2728 ml Output Total 650 ml 2525 ml 1300 ml Balance -300 ml 515 ml -1355 ml 1428 ml Intake Oral 300 ml 1070 ml 240 ml IV Total 50 ml 515 ml 100 ml 2488 ml Output Urine Total 650 ml 2525 ml 1300 ml # Bowel Movements 1 Result Diagram: 06/15/17 0542 06/15/17 0542 Other Results Laboratory Tests Test 06/15/17 05:42 Prothromb Time International Ratio 1.5 RATIO Prothrombin Time 16.6 SEC (9.8-11.6) Imaging Last 24 hours Impressions Chest X-Ray 06/06/17 0049 Signed Impressions: Service Date/Time: Tuesday, June 06, 2017 01:25 - CONCLUSION: 1. Mild basilar atelectasis. [id number] in superior vena cava. Shravan Saldaña MD Objective Remarks Left lower extremity: No pain with hip range of motion. Minimal swelling of knee. Clean dry dressings intact with compression dressing. Swelling is continued to improve. He is 5 short of extension and is only able to flex approximately 20. Mild tenderness to palpation surrounding the knee. There is no erythema or drainage. Distally he has intact sensation good capillary refills. Assessment & Plan Assessment and Plan Left knee joint effusion with osteoarthritis Laboratory results still show no infection. Swelling has resolved. He continues to have osteoarthritis. Continue to work with physical therapy for range of motion and weightbearing as tolerated. No further orthopedic follow-up necessary Dhruv Osorio Jr. Jun 15, 2017 09:06
--- NOTE | 2017-06-15 09:33 | PD.ONC.PN ---
Subjective Subjective Remarks Tmax 99.9 overnight. Patient confused today. Denies pain. Had difficulty sleeping last night. Objective Data Date Time Temp Pulse Resp B/P (MAP) Pulse Ox O2 Delivery O2 Flow Rate FiO2 06/15/17 08:58 99.9 84 18 151/93 (112) 96 06/15/17 06:00 98.7 81 20 141/79 (99) 97 06/15/17 00:00 99.0 84 18 142/67 (92) 98 06/14/17 21:15 114 06/14/17 20:00 99.9 90 20 161/78 (105) 97 06/14/17 17:40 99.4 06/14/17 16:00 98.9 82 20 136/50 (78) 98 06/14/17 12:00 97.6 77 18 134/73 (93) 97 06/15/17 06/15/17 06/15/17 07:00 15:00 23:00 Intake Total 2728 ml Output Total 1300 ml Balance 1428 ml Result Diagram: 06/15/17 0542 06/15/17 0542 Laboratory Results Laboratory Tests Test 06/15/17 05:42 White Blood Count 0.2 TH/MM3 Red Blood Count 2.58 MIL/MM3 Hemoglobin 7.5 GM/DL Hematocrit 22.1 % Mean Corpuscular Volume 85.9 FL Mean Corpuscular Hemoglobin 29.1 PG Mean Corpuscular Hemoglobin Concent 33.9 % Red Cell Distribution Width 14.9 % Platelet Count 10 TH/MM3 Mean Platelet Volume 8.3 FL CBC Comment AUTO DIFF Differential Total Cells Counted 20 Neutrophils % (Manual) 20 % Band Neutrophils % 5 % Lymphocytes % 60 % Monocytes % 5 % Neutrophils # (Manual) 0.1 TH/MM3 Metamyelocytes 10 % Toxic Granulation 2+ Platelet Estimate RARE Platelet Morphology Comment NORMAL Prothrombin Time 16.6 SEC Prothromb Time International Ratio 1.5 RATIO Activated Partial Thromboplast Time 32.4 SEC Blood Urea Nitrogen 14 MG/DL Creatinine 0.73 MG/DL Random Glucose 148 MG/DL Total Protein 6.0 GM/DL Albumin 1.6 GM/DL Calcium Level 8.0 MG/DL Phosphorus Level 2.4 MG/DL Alkaline Phosphatase 87 U/L Aspartate Amino Transf (AST/SGOT) 55 U/L Alanine Aminotransferase (ALT/SGPT) 115 U/L Total Bilirubin 1.5 MG/DL Sodium Level 139 MEQ/L Potassium Level 3.1 MEQ/L Chloride Level 104 MEQ/L Carbon Dioxide Level 28.1 MEQ/L Anion Gap 7 MEQ/L Estimat Glomerular Filtration Rate 106 ML/MIN Culture Results Microbiology Date/Time Source Procedure Growth Status 06/14/17 00:30 Blood Line Aerobic Blood Culture Pending Received 06/14/17 00:30 Blood Line Anaerobic Blood Culture Pending Received 06/13/17 01:36 Blood Peripheral Aerobic Blood Culture - Preliminary NO GROWTH IN 1 DAY Resulted 06/13/17 01:36 Blood Peripheral Anaerobic Blood Culture - Preliminary NO GROWTH IN 1 DAY Resulted 06/13/17 00:40 Blood Line Aerobic Blood Culture - Preliminary NO GROWTH IN 1 DAY Resulted 06/13/17 00:40 Blood Line Anaerobic Blood Culture - Preliminary NO GROWTH IN 1 DAY Resulted Administered Medications Medications (Trade) Dose Ordered Sig/Ivelisse Route PRN Reason Start Time Stop Time Status Last Admin Dose Admin Acetaminophen (Tylenol) 650 mg Q4H PRN PO fever>100.4 05/15/17 13:00 06/13/17 23:23 Citalopram Hydrobromide (CeleXA) 20 mg DAILY PO 05/16/17 09:00 06/15/17 08:02 Pantoprazole Sodium (Protonix) 20 mg DAILY PO 05/16/17 09:00 06/15/17 08:02 Ondansetron HCl (Zofran Inj) 4 mg Q6HR PRN IV PUSH nausea 05/15/17 14:00 06/15/17 08:15 Sodium Chloride (NS Flush) 5 ml UNSCH PRN IVF SEE PROTOCOL 05/15/17 15:00 06/11/17 08:44 Heparin Sodium (Porcine) (Heparin Central Flush) 250 units UNSCH PRN IV FLUSH SEE PROTOCOL 05/15/17 15:00 06/12/17 03:18 Sodium Chloride (NS Flush) UNSCH PRN IVF SEE PROTOCOL 05/15/17 18:45 06/12/17 03:18 Trimethoprim/ Sulfamethoxazole (Bactrim Ds 800-160 Mg) 1 tab MoWeFr@09 PO 05/16/17 09:00 Future Hold 05/25/17 08:37 Multi-Ingredient Mouthwash/Gargle (Magic Mouthwash Adult Liq) 5 ml QID SWISH-SWAL 05/16/17 13:00 06/15/17 08:01 Megestrol Acetate (Megace Liq) 300 mg DAILY PO 05/16/17 14:00 06/15/17 08:02 Magnesium Hydroxide (Milk Of Magnesia Liq) 30 ml DAILY PRN PO CONSTIPATION 05/21/17 11:30 06/06/17 13:20 Vancomycin HCl 1500 mg/Sodium Chloride 515 ml @ 250 mls/hr Q12H IV 05/26/17 08:00 06/15/17 08:02 Tramadol HCl (Ultram) 25 mg Q6H PRN PO PAIN 06/03/17 06:45 Future Hold 06/06/17 03:37 Cefepime HCl 2000 mg/Sodium Chloride 100 ml @ 200 mls/hr Q8H IV 06/06/17 02:00 06/15/17 01:33 Alprazolam (Xanax) 0.25 mg Q8H PRN PO anxiety 06/06/17 10:15 Future Hold 06/08/17 02:39 Potassium Chloride (KCl) 30 meq DAILY PO 06/08/17 12:00 06/15/17 08:02 Micafungin Sodium 150 mg/Sodium Chloride 100 ml @ 100 mls/hr Q24H IV 06/08/17 18:00 06/14/17 17:36 Diphenhydramine HCl (Benadryl) 25 mg Q4H PRN PO SEE LABEL COMMENTS 06/09/17 14:30 06/13/17 23:23 Fat Emulsion Intravenous 250 ml @ 10 mls/hr Q24H IV-CENTRAL 06/09/17 20:00 06/14/17 20:35 Multivitamins 10 ml/Folic Acid 1 mg/Amino Acids/ Electrolytes/ Dextrose 2,010.2 ml @ 60 mls/hr Q24H IV 06/14/17 20:00 06/14/17 20:35 Objective Remarks GENERAL: Elderly male upright in bed, anxious. SKIN: Warm and dry. HEAD: Normocephalic. EYES: No injection or drainage. NECK: Supple, trachea midline. CARDIOVASCULAR: +S1/S2 RESPIRATORY: anterior campo clear. GASTROINTESTINAL: Abdomen soft, non-tender, nondistended. EXTREMITIES: No cyanosis. Left knee swelling improving. yudi bandage in place. NEUROLOGICAL: awake. confused. following commands. able to move extremities. Assessment/Plan Problem List: (1) AML (acute myeloblastic leukemia) ICD Codes: C92.00 - Acute myeloblastic leukemia, not having achieved remission Plan: 05/15/17: Admission. given Hydrea. [facility] performed Leukapheresis bringing WBC from >100K to 44K. 05/16/17: D1. SONIA-C + Maria Del [facility]. 1 unit pRBC 05/17/17: D2. no transfusion. tolerating chemo 05/19/17: D4. 1 unit platelets today. No evidence of tumor lysis. Pt finished idarubicin yesterday. Continue SONIA-C. 05/20/17 D5: 1 unit platelets, 2 units PRBC's today. Will add on xanax prn and 1mg xanax at HS scheduled. Continue chemo, continue to monitor blood counts. 05/23/17: D8: Pt to have final bag chemo hung tonight. Transfuse 1 unit irradiated platelets, 1 unit irradiated PRBC's today. 05/24/17: D9: We'll transfuse 1 unit irradiated packed red blood cells today for hemoglobin of 6.9 05/25/17: D10. transfuse 1 unit platelets. pain in left knee and right shoulder. swelling in left knee. 06/12/17: D28. 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 --He presented with hyperleukocytosis and acute blast crises. (2) Pancytopenia ICD Codes: D61.818 - Other pancytopenia Status: Acute Plan: --transfuse him for hemoglobin of 7 or less. -- irradiated/CMV-negative blood products. --transfuse for platelet count of 10 or less. (3) Coagulopathy ICD Codes: D68.9 - Coagulation defect, unspecified Status: Acute Plan: --monitor coags, fibrinogen, LDH and haptoglobin (4) Swelling of left knee joint ICD Codes: M25.462 - Effusion, left knee Status: Acute Plan: --diff dx includes but is not limited to gout vs pseudogout, vs. hemarthrosis vs. septic joint vs. arthritis. --MRI of knee shows joint effusion, unable to tap until counts recover --on abx. ID following. --ortho saw patient on 05/30 and recommends medical management, close observation and intervention if symptoms worsen (5) Sepsis ICD Codes: A41.9 - Sepsis, unspecified organism Plan: --ID following --BC 06/13: BC no growth --BC 06/11: BC no growth --BC on 06/09 showed no growth --+BC, 05/26--[facility] --on Cefepime, Vanco and Micafungin (6) Protein-calorie malnutrition, moderate ICD Codes: E44.0 - Moderate protein-calorie malnutrition Status: Acute Plan: -started on TPN on 06/09 (7) Transaminitis ICD Codes: R74.0 - Nonspecific elevation of levels of transaminase and lactic acid dehydrogenase [LDH] Plan: ?d/t TPN --monitor for trend Assessment 72y/o male with acute myeloid leukemia with blast crisis. 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 Plan 1. continue antibiotics 2. monitor LFTs 3. watch for bone marrow recovery, monitor CBC 4. palliative care meeting today Attending Statement The exam, history, and the medical decision-making described in the above note were completed with the assistance of the mid-level provider. I reviewed and agree with the findings presented. I attest that I had a [id number] encounter with the patient on the same day, and personally performed and documented my assessment and findings in the medical record. High risk AML pancytopenic and severely neutropenic LFTs up--? TPN vs Drugs vs passive congestion? vs infection. Get Liver U/S decrease TPN rate to 40 cc/hr awake and alert but confused sometimes transfuse platelets Vit K for coagulopathy d/w patient's spoke with palliative care wants to hold off hospice placement until Sunday Continue TP/supportive care through the weekend patient not co-operating with PT d/w rn o/n events reviewed Problem Qualifiers (1) AML (acute myeloblastic leukemia): Qualified Codes: C92.00 - Acute myeloblastic leukemia, not having achieved remission Oma Chavez Jun 15, 2017 09:33 Shar Ibanez MD Jun 15, 2017 19:35
[2017-06-15] MEDS ORDERED: SODIUM CHLOR 0.9% 250 ML INJ 250 ML IV ONE (09:45)
[2017-06-15 09:58] LABS: SCAN/DIFF FINAL DIFF MANUAL
[2017-06-15] MEDS: diphenhydrAMINE HCL 25 MG CAP PO PRN (10:40)
[2017-06-15] MEDS: ACETAMINOPHEN 325 MG TAB PO PRN (10:40)
--- NOTE | 2017-06-15 12:11 | HHI.PR ---
Subjective Remarks disoriented, anxious, wants to get out of bed temp max 99.9 difficult to obtain ROS Objective Objective Results - Vital Signs Date Time Temp Pulse Resp B/P (MAP) Pulse Ox O2 Delivery O2 Flow Rate FiO2 06/15/17 11:48 97.8 88 18 123/69 97 06/15/17 11:27 98.3 69 18 133/67 94 06/15/17 08:58 99.9 84 18 151/93 (112) 96 06/15/17 06:00 98.7 81 20 141/79 (99) 97 06/15/17 00:00 99.0 84 18 142/67 (92) 98 06/14/17 21:15 114 06/14/17 20:00 99.9 90 20 161/78 (105) 97 06/14/17 17:40 99.4 06/14/17 16:00 98.9 82 20 136/50 (78) 98 I/O 06/14/17 06/14/17 06/14/17 06/15/17 06/15/17 06/15/17 07:00 15:00 23:00 07:00 15:00 23:00 Intake Total 350 ml 515 ml 1170 ml 2728 ml 290 ml Output Total 650 ml 2525 ml 1300 ml Balance -300 ml 515 ml -1355 ml 1428 ml 290 ml Intake Oral 300 ml 1070 ml 240 ml IV Total 50 ml 515 ml 100 ml 2488 ml Platelets 290 ml Output Urine Total 650 ml 2525 ml 1300 ml # Bowel Movements 1 Result Diagram: 06/15/17 0542 06/15/17 0542 Imaging Last Impressions Chest X-Ray 05/16/17 0700 Signed Impressions: Service Date/Time: Tuesday, May 16, 2017 07:41 - CONCLUSION: The lungs are clear. No evidence of pneumothorax. Ethan Sabillon MD [facility] 05/15/17 0000 Signed Impressions: Service Date/Time: Monday, May 15, 2017 14:57 - CONCLUSION: Normal study. Ejection fraction 72%% Man Burden MD Catheter Placement X-Ray 05/15/17 0000 Signed Impressions: Service Date/Time: Monday, May 15, 2017 17:46 - CONCLUSION: Uncomplicated line placement as above. Man Burden MD Other Results Laboratory Tests Test 06/15/17 05:42 White Blood Count 0.2 Red Blood Count 2.58 Hemoglobin 7.5 Hematocrit 22.1 Mean Corpuscular Volume 85.9 Mean Corpuscular Hemoglobin 29.1 Mean Corpuscular Hemoglobin Concent 33.9 Red Cell Distribution Width 14.9 Platelet Count 10 Mean Platelet Volume 8.3 CBC Comment AUTO DIFF Differential Total Cells Counted 20 Neutrophils % (Manual) 20 Band Neutrophils % 5 Lymphocytes % 60 Monocytes % 5 Neutrophils # (Manual) 0.1 Metamyelocytes 10 Differential Comment FINAL DIFF MANUAL Toxic Granulation 2+ Platelet Estimate RARE Platelet Morphology Comment NORMAL Prothrombin Time 16.6 Prothromb Time International Ratio 1.5 Activated Partial Thromboplast Time 32.4 Blood Urea Nitrogen 14 Creatinine 0.73 Random Glucose 148 Total Protein 6.0 Albumin 1.6 Calcium Level 8.0 Phosphorus Level 2.4 Alkaline Phosphatase 87 Aspartate Amino Transf (AST/SGOT) 55 Alanine Aminotransferase (ALT/SGPT) 115 Total Bilirubin 1.5 Sodium Level 139 Potassium Level 3.1 Chloride Level 104 Carbon Dioxide Level 28.1 Anion Gap 7 Estimat Glomerular Filtration Rate 106 Date/Time Source Procedure Growth Status 06/14/17 00:30 Blood Line Aerobic Blood Culture - Preliminary NO GROWTH IN 1 DAY Resulted 06/14/17 00:30 Blood Line Anaerobic Blood Culture - Preliminary NO GROWTH IN 1 DAY Resulted 06/07/17 11:15 Fluid Synovial Fluid Gram Stain - Final Complete 06/07/17 11:15 Fluid Synovial Fluid Body Fluid Culture - Final NO GROWTH IN 72 HRS.--AEROBICALLY OR ... Complete ROS General: Other (unable to obtain ROS ) Physical Exam Physical Exam GENERAL: This is a well-nourished, well-developed patient, in no apparent distress. SKIN: Petechial rash noted to bilateral pretibial areas. Skin pale and cool to touch HEAD: Atraumatic. Normocephalic. No temporal or scalp tenderness. EYES: Pupils equal round and reactive. Extraocular motions intact. No scleral icterus. No injection or drainage. ENT: Nose without bleeding, purulent drainage or septal hematoma. Throat without erythema, tonsillar hypertrophy or exudate. Uvula midline. Airway patent. NECK: Trachea midline. No JVD or lymphadenopathy. Supple, nontender, no meningeal signs. CARDIOVASCULAR: Regular rate and rhythm without murmurs, gallops, or rubs. RESPIRATORY: Clear to auscultation. Breath sounds equal bilaterally. No wheezes , rales, or rhonchi. Port-A-Cath noted to left chest wall area. GASTROINTESTINAL: Abdomen soft, non-tender, nondistended. No hepato-splenomegaly , or palpable masses. No guarding. MUSCULOSKELETAL: Left knee less tender with flexion. Right shoulder moving better. NEUROLOGICAL: Awakes, disoriented. Anxious. No focal deficit. Urinary Catheter: No Vascular Central Line Catheter: No A/P Diagnosis: (1) AML (acute myeloblastic leukemia) ICD Codes: C92.00 - Acute myeloblastic leukemia, not having achieved remission (2) Pancytopenia ICD Codes: D61.818 - Other pancytopenia Status: Acute (3) Coagulopathy ICD Codes: D68.9 - Coagulation defect, unspecified Status: Acute (4) Anxiety and depression ICD Codes: F41.8 - Other specified anxiety disorders Status: Chronic (5) Familial tremor ICD Codes: G25.0 - Essential tremor Status: Chronic (6) Protein-calorie malnutrition, moderate ICD Codes: E44.0 - Moderate protein-calorie malnutrition Status: Acute (7) Thrombocytopenia ICD Codes: D69.6 - Thrombocytopenia, unspecified Status: Acute (8) Anemia ICD Codes: D64.9 - Anemia, unspecified Status: Acute (9) right forearm swelling Status: Acute (10) Swelling of left knee joint ICD Codes: M25.462 - Effusion, left knee Status: Acute Assessment and Plan 72-year-old white male with 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 Admitted for chemotherapy induction. Acute myeloblastic leukemia Pancytopenia -Dr. Ibanez managing -completed chemo 05/23 -Continue with blood product replacement is needed -Monitor for bone marrow recovery -CT guided bone marrow bx 06/01, results back. Minimal residual disease. -continue with blood product replacement per heme -waiting for bone marrow recovery Coagulopathy -Monitor for bleeding - fibrinogen levels per oncology, elevated. GERD [place] esophagus -Continue Protonix 20 mg by mouth daily Anxiety and depression -Continue with Celexa 20 mg by mouth daily -continue Xanax PRN Confused, likely metabolic encephalopathy -CT head no acute findings -limit narcotics -continue to reorient frequently, inc. mobility -remains poorly motivated. Enc. out of bed Familial tremor, stable -continue with medical management Left knee and right shoulder pain, ? septic joint, effusion -MRI left knee noted, joint effusion, unable to have arthrocentesis due to low platelets. -ID has been consulted, input appreciated -Ortho following, input appreciated -Continue with empiric antibiotic -Continue with Allopurinol 100 mg po bid -Continue [place] PRN -s/p arthro-centesis , fluid appeared bloody Gram stain and c/s neg Cell count noted Positive blood cultures, ? Bacteremia, left knee effusion. -Appreciate ID input -Continue with empiric antibiotics per ID -Cefepime, Micafungin, Vanco -Blood and line cultures positive for Staph epi -per ID, no need to remove port -fevers improving. Following cultures. Coagulopathy any acute bleeding -INR 1.5, Vit K given per heme Right arm swelling, positive for DVT cephalic vein -Elevate arm as needed -Warm compresses -no anticoagulation recommended at this time due to low platelets. -right arm swelling improved, faint erythema Protein calorie malnutrition -calorie count -continue TPN -remains anorexic, TPN rate adjusted. No SCDs or anticoagulation recommended at this time due to thrombocytopenia Continue Protonix for GI prophylaxis PT and OT to increase mobility Condition guarded bone marrow recovery in progress, Pt. remains debilitated, not very motivated. appreciate palliative care input, they met with . She has requested hospice. Hospice to meet with today poss nm to [facility] D/W RN D/W pt D/W Dr. Obrien/Goldie Chavez PA Patient was seen by myself and Dr. Obrien, this note is written on his behalf Problem Qualifiers (1) AML (acute myeloblastic leukemia): Qualified Codes: C92.00 - Acute myeloblastic leukemia, not having achieved remission (2) Anemia: Viola Sanon Jun 15, 2017 12:11
--- NOTE | 2017-06-15 12:33 | HHI.HCPN ---
Reason for visit a. To assist with evaluation and management of symptoms including: Debility , decreased appetite. b. To assist medical decision maker(s) with: better understanding of current medical conditions; weighing benefits/burdens of medical treatment options; making medical treatment decisions. . Subjective/Interval History Mr. 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 Patient originally diagnosed with MDS in early 2015. Patient showing progression of disease status post chemotherapy. He was admitted on 05/15/17 for induction therapy and emergent leukapheresis. Patient's clinical course complicated by persistent neutropenia with fevers, malnutrition, poor oral intake and profound physical deconditioning. Palliative care consulted for further clarifications of goals of care, family's request. Patient seen in oncology floor. Patient resting in bed in no acute distress. Alert and oriented x self, place and situation. Frequently confused/forgetful. Patient endorsing pain to his lower back/buttocks from prolonged bedrest, continues endorsing generalized debility and poor appetite. Max temperature 99.9 this morning, hemodynamically stable. Tolerating room air, oxygen saturation in the mid to high 90s. Laboratory workup today revealing WBC 0.2, Hgb 7.5, platelet count 10. Pending platelet transfusion. Since admission, patient has received a total of 15 units of PRBC and 15 units of platelets. Met with patient's Cristina Banks (Trish). In this first visit, reviewed the role of palliative care in advanced illness in regards to symptom management as well as support surrounding goals of care and advance care planning. Reviewed patient's past medical history, and events leading to this hospitalization, clinical course and current medical management. Reviewed clinical complications to include persistent neutropenia with fevers, malnutrition with albumin 1.6, poor oral intake/pt on TPN and profound physical deconditioning. Patient's tells me that she feels that patient is not having any meaningful quality of life given his worsening condition. feels that patient will not likely recuperate from this acute illness/ complications and that she feels that he is suffering. Discussed risks, benefits and limitations of CPR, intubation and mechanical ventilation. electing no code. DNR/DNI. Community DNR has been signed. inquiring regarding hospice services/transition patient to comfort-directed care. Hospice philosophy and benefits reviewed. Discussed that if comfort-directed care is elected, TPN and transfusions will be discontinued. Discussed patient's prognosis of days while on comfort directed-care if illness runs its natural course. Patient's was encouraged to share concerns with oncology Dr. Ibanez. Case discussed with oncology TEENA Poe and bedside RN Ladan. . Family/friend interactions See interval note. . Advance Directives Living Will: Copy in medical record Health Care Surrogate: Copy in medical record Advance Directive Specifics Date completed: 03/15/17. Health Care Surrogate(s): Patient designated his Cristina Banks as healthcare surrogate decision maker. . Documented care wishes: Living will with standard verbiage as it relates to terminal condition, end- stage condition, or persistent vegetative state. . Significant change in goals: No code. DNR/DNI. Patient's family considering transitioning patient to comfort-directed care with hospice. . Objective Vital Signs Date Time Temp Pulse Resp B/P (MAP) Pulse Ox O2 Delivery O2 Flow Rate FiO2 06/15/17 11:48 97.8 88 18 123/69 97 06/15/17 11:27 98.3 69 18 133/67 94 06/15/17 08:58 99.9 84 18 151/93 (112) 96 06/15/17 06:00 98.7 81 20 141/79 (99) 97 06/15/17 00:00 99.0 84 18 142/67 (92) 98 06/14/17 21:15 114 06/14/17 20:00 99.9 90 20 161/78 (105) 97 06/14/17 17:40 99.4 06/14/17 16:00 98.9 82 20 136/50 (78) 98 Intake & Output 06/15/17 06/15/17 07:00 19:00 Intake Total 3078 ml 290 ml Output Total 2150 ml Balance 928 ml 290 ml Intake Oral 590 ml IV Total 2488 ml Platelets 290 ml Output Urine Total 2150 ml Physical Exam CONSTITUTIONAL/GENERAL: This is a thin male patient in no apparent distress. TUBES/LINES/DRAINS: PIV's. SKIN: Pale. No jaundice or lesions. Scatter ecchymoses on upper extremities. No wounds seen anteriorly. Skin temperature appropriate. Not diaphoretic. HEAD: Atraumatic. Normocephalic. EYES: Pupils equal and round and reactive. Extraocular motions intact. No scleral icterus. No injection or drainage. ENT: Hearing grossly normal. Nose without bleeding or purulent drainage. Moist oral mucosa. NECK: Trachea midline. Supple, nontender. CARDIOVASCULAR: Regular rate and rhythm. Peripheral pulses symmetric. RESPIRATORY/CHEST: Symmetric, unlabored respirations. Clear to auscultation. Breath sounds equal bilaterally. GASTROINTESTINAL: Abdomen soft, non-tender, nondistended. No guarding. Bowel sounds present. GENITOURINARY: Without palpable bladder distension. MUSCULOSKELETAL: Extremities without clubbing, cyanosis. No mottling or clubbing. NEUROLOGICAL: Awake and alert, confused/forgetful. Motor and sensory grossly within normal limits. Follows commands. Moves all extremities. PSYCHIATRIC: Irritated/anxious at times. . Diagnostic Tests Laboratory Laboratory Tests Test 06/13/17 05:00 06/14/17 04:15 06/15/17 05:42 White Blood Count 0.1 TH/MM3 (4.0-11.0) 0.1 TH/MM3 (4.0-11.0) 0.2 TH/MM3 (4.0-11.0) Red Blood Count 2.40 MIL/MM3 (4.50-5.90) 2.60 MIL/MM3 (4.50-5.90) 2.58 MIL/MM3 (4.50-5.90) Hemoglobin 7.0 GM/DL (13.0-17.0) 7.6 GM/DL (13.0-17.0) 7.5 GM/DL (13.0-17.0) Hematocrit 20.8 % (39.0-51.0) 22.5 % (39.0-51.0) 22.1 % (39.0-51.0) Mean Corpuscular Volume 86.7 FL (80.0-100.0) 86.7 FL (80.0-100.0) 85.9 FL (80.0-100.0) Mean Corpuscular Hemoglobin 29.0 PG (27.0-34.0) 29.3 PG (27.0-34.0) 29.1 PG (27.0-34.0) Mean Corpuscular Hemoglobin Concent 33.5 % (32.0-36.0) 33.8 % (32.0-36.0) 33.9 % (32.0-36.0) Red Cell Distribution Width 15.0 % (11.6-17.2) 15.2 % (11.6-17.2) 14.9 % (11.6-17.2) Platelet Count 18 TH/MM3 (150-450) 12 TH/MM3 (150-450) 10 TH/MM3 (150-450) Mean Platelet Volume 7.8 FL (7.0-11.0) 8.0 FL (7.0-11.0) 8.3 FL (7.0-11.0) CBC Comment AUTO DIFF AUTO DIFF AUTO DIFF Differential Total Cells Counted 15 20 20 Band Neutrophils % 7 % (0-6) 5 % (0-6) Lymphocytes % 93 % (9-44) 95 % (9-44) 60 % (9-44) Neutrophils # (Manual) 0.0 TH/MM3 (1.8-7.7) 0.0 TH/MM3 (1.8-7.7) 0.1 TH/MM3 (1.8-7.7) Differential Comment FINAL DIFF MANUAL FINAL DIFF MANUAL FINAL DIFF MANUAL Platelet Estimate RARE (NORMAL) RARE (NORMAL) RARE (NORMAL) Platelet Morphology Comment NORMAL (NORMAL) NORMAL (NORMAL) NORMAL (NORMAL) Prothrombin Time 17.1 SEC (9.8-11.6) 16.6 SEC (9.8-11.6) 16.6 SEC (9.8-11.6) Prothromb Time International Ratio 1.5 RATIO 1.5 RATIO 1.5 RATIO Activated Partial Thromboplast Time 34.5 SEC (24.3-30.1) 32.8 SEC (24.3-30.1) 32.4 SEC (24.3-30.1) Blood Urea Nitrogen 15 MG/DL (7-18) 14 MG/DL (7-18) 14 MG/DL (7-18) Creatinine 0.83 MG/DL (0.60-1.30) 0.77 MG/DL (0.60-1.30) 0.73 MG/DL (0.60-1.30) Random Glucose 137 MG/DL (74-106) 159 MG/DL (74-106) 148 MG/DL (74-106) Total Protein 6.0 GM/DL (6.4-8.2) 6.1 GM/DL (6.4-8.2) 6.0 GM/DL (6.4-8.2) Albumin 1.7 GM/DL (3.4-5.0) 1.7 GM/DL (3.4-5.0) 1.6 GM/DL (3.4-5.0) Calcium Level 8.2 MG/DL (8.5-10.1) 8.0 MG/DL (8.5-10.1) 8.0 MG/DL (8.5-10.1) Phosphorus Level 2.4 MG/DL (2.5-4.9) 2.5 MG/DL (2.5-4.9) 2.4 MG/DL (2.5-4.9) Alkaline Phosphatase 68 U/L (45-117) 77 U/L (45-117) 87 U/L (45-117) Aspartate Amino Transf (AST/SGOT) 13 U/L (15-37) 26 U/L (15-37) 55 U/L (15-37) Alanine Aminotransferase (ALT/SGPT) 39 U/L (12-78) 60 U/L (12-78) 115 U/L (12-78) Total Bilirubin 1.1 MG/DL (0.2-1.0) 1.3 MG/DL (0.2-1.0) 1.5 MG/DL (0.2-1.0) Sodium Level 140 MEQ/L (136-145) 139 MEQ/L (136-145) 139 MEQ/L (136-145) Potassium Level 3.1 MEQ/L (3.5-5.1) 3.5 MEQ/L (3.5-5.1) 3.1 MEQ/L (3.5-5.1) Chloride Level 104 MEQ/L (98-107) 105 MEQ/L (98-107) 104 MEQ/L (98-107) Carbon Dioxide Level 28.9 MEQ/L (21.0-32.0) 27.7 MEQ/L (21.0-32.0) 28.1 MEQ/L (21.0-32.0) Anion Gap 7 MEQ/L (5-15) 6 MEQ/L (5-15) 7 MEQ/L (5-15) Estimat Glomerular Filtration Rate 92 ML/MIN (>89) 100 ML/MIN (>89) 106 ML/MIN (>89) Basophils % 5 % (0-2) Magnesium Level 1.9 MG/DL (1.5-2.5) Neutrophils % (Manual) 20 % (16-70) Monocytes % 5 % (0-8) Metamyelocytes 10 % (0-1) Toxic Granulation 2+ (NORMAL) Result Diagram: 06/15/1754106/15/17541 Microbiology Microbiology Date/Time Source Procedure Growth Status 06/14/17 00:30 Blood Line Aerobic Blood Culture - Preliminary NO GROWTH IN 1 DAY Resulted 06/14/17 00:30 Blood Line Anaerobic Blood Culture - Preliminary NO GROWTH IN 1 DAY Resulted 06/13/17 01:36 Blood Peripheral Aerobic Blood Culture - Preliminary NO GROWTH IN 2 DAYS Resulted 06/13/17 01:36 Blood Peripheral Anaerobic Blood Culture - Preliminary NO GROWTH IN 2 DAYS Resulted 06/13/17 00:40 Blood Line Aerobic Blood Culture - Preliminary NO GROWTH IN 2 DAYS Resulted 06/13/17 00:40 Blood Line Anaerobic Blood Culture - Preliminary NO GROWTH IN 2 DAYS Resulted Procedures 06/01/17 -CT-guided biopsy of bone marrow 05/15/17 -hemodialysis catheter placement . Assessment and Plan Disease Oriented Problem List: (1) AML (acute myeloblastic leukemia) (2) Thrombocytopenia (3) Anemia (4) Swelling of left knee joint (5) Protein-calorie malnutrition, moderate Symptom Scale: (1) Debility 0-10 Scale: Unable to quantify Comment: Progressive given illness and prolonged hospitalization. (2) Poor appetite 0-10 Scale: Unable to quantify Comment: Ongoing calorie count at this time. Pertinent Non-Medical Issues Psychosocial: Patient originally from [place], moved to [place] when he was 23 years old. Patient has been to current for the past 24 years, 1 biological son who 21 years ago. No service. 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 Spiritual: No protestant affiliation. Legal: Advance directives completed. Ethical issues impacting care: No legal or ethical issues identified. . Important Contacts Cristina Banks , . . Prognosis Mr. 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 Patient originally diagnosed with MDS in early 2016. Patient showing progression of disease status post chemotherapy. He was admitted on 05/15/17 for induction therapy given and emergent leukapheresis. Patient's clinical course complicated by persistent neutropenia with fevers, malnutrition, poor oral intake and profound physical deconditioning. Patient at high risk for further complications, continue decline and . . Code Status: No Code Plan * CODE STATUS: No code. DNR/DNI. Community DNR has been sign by patient's . * HEALTHCARE DECISION-MAKING: Patient confused given encephalopathy, deferring any conversation to his . Patient does not demonstrate a good understanding of this medical condition or the ability to weight the benefits and burdens of treatment options. Advance directives secured, patient designated his Cristina Banks as healthcare surrogate decision maker. * GOALS OF CARE: Ongoing discussion. Patient's strongly considering transitioning patient to comfort-directed care given patient's clinical status to include persistent neutropenia with fevers, malnutrition with albumin of 1.6 , poor oral intake requiring TPN and profound physical deconditioning. Patient' s tells me that she feels that patient is not having any meaningful quality of life given his worsening condition. feels that patient will not likely recuperate from this acute illness/complications and that she feels that he is suffering. Family was encouraged to discuss concerns with oncology, Dr. Ibanez. Hospice philosophy and benefits reviewed in detail. Patient's prognosis of days upon discontinuation of TPN/blood products if transition to comfort-directed care with hospice. * SYMPTOMS: = Poor appetite, decreased oral intake. Malnutrition with albumin 1.7. Patient started on TPN on 06/09/17. Currently undergoing calorie count, to be completed on 06/15/17. Currently on Megace daily. = Debility, progressive secondary to acute illness, clinical complications and prolonged hospitalization. PT/OT following, patient with poor motivation. History of depression, currently on Celexa. Likely to continue to worsen. * Case discussed with oncology TEENA Poe, bedside LENA Pickering and hospice turf farmer Debbie. * Ongoing emotional support and active listening provided to patient's . * Palliative care contact information has been provided to patient and . * Palliative care will continue to follow-up for further clarifications of goals of care as patient's clinical course continue to evolve. . Time Spent Total Floor Time (mins): 48 (Total time to include review of medical records, physical exam, goals of care discussion with patient's , case discussion with oncology, bedside RN and manager property.) >50% Counseling/Coord of Care: Yes Attestation To help prompt me to consider important information that might be impacting today's encounter and assessment, information from prior notes written by myself or my colleagues may have been "brought forward" into today's note. My signature on this note, however, is an attestation that I personally performed the exam, history, and/or decision-making noted today, and, unless otherwise indicated, the interactions with patient, family, and staff as well as the review of records all occurred today. I also attest that the listed assessment and stated plan reflect my best clinical judgment today based on the combination of historical information, prior notes, and today's exam/ interactions. When time spent is documented, it refers only to time spent today by the signer, or if indicated, combined time spent today by collaborating physician/nurse practitioner. Nicole Malik Jun 15, 2017 12:33
[2017-06-15] MEDS ORDERED: POTASSIUM CHLORIDE 8 MEQ CONTROLLED RELEASE TAB PO ONE (15:45)
[2017-06-15] MEDS: MICAFUNGIN INJ 150 MG in SODIUM CHLORIDE 0.9% INJ 100 ML IV SCH (16:55)
[2017-06-15] MEDS: MULTIVITAMIN INJ 10 ML, FOLIC ACID INJ 1 MG in AMINO ACID IN D5W W/ELECTROLYT 2,000 ML IV SCH ×3 (19:38)
[2017-06-15] MEDS: FAT EMULSION 20% INJ 250 ML (@10 mls/hr) IV-CENTRAL SCH (19:39)
[2017-06-16] VITALS: BP 140/88; PULSE 87; RESP 18; TEMP 99.8; O2SAT 97
[2017-06-16] MEDS: CEFEPIME INJ 2,000 MG in SODIUM CHLORIDE 0.9% INJ 100 ML IV SCH (01:20)
[2017-06-16 04:00] VITALS: BP 122/83; PULSE 86; RESP 20; TEMP 100; O2SAT 98
[2017-06-16 08:00] VITALS: BP 156/86; PULSE 83; RESP 20; TEMP 97.2; O2SAT 96
[2017-06-16] MEDS ORDERED: ACETAMINOPHEN 325 MG TAB PO PRN (08:00)
[2017-06-16] MEDS ORDERED: SODIUM CHLOR 0.9% 250 ML INJ 250 ML IV ONE (08:00)
[2017-06-16] MEDS ORDERED: diphenhydrAMINE HCL 25 MG CAP PO PRN (08:00)
[2017-06-16] MEDS: MEGESTROL ACETATE SUSP 400 MG/10 ML CUP PO SCH (08:33)
[2017-06-16] MEDS: PANTOPRAZOLE SOD 20 MG DELAYED RELEASE TAB PO SCH (08:33)
[2017-06-16] MEDS: CITALOPRAM HYDROBROMIDE 20 MG TAB PO SCH (08:33)
[2017-06-16] MEDS: NYSTAT/DIPHENHY/LIDO MOUTHWASH (Adult) 120ML SWISH-SWAL SCH (08:33)
[2017-06-16] MEDS: VANCOMYCIN INJ 1,500 MG in SODIUM CHLORID 0.9% 500 ML INJ 500 ML IV SCH (08:33)
[2017-06-16] MEDS: POTASSIUM CHLORIDE 10 MEQ CONTROLLED RELEASE TAB PO SCH (08:33)
[2017-06-16 08:38] LABS: HEMATOCRIT 21.7 % (39.0-51.0); MEAN CELL VOLUME 86.6 FL (80.0-100.0); MEAN CORPUSCULAR HGB CONC 33.5 % (32.0-36.0); RED BLOOD COUNT 2.51 MIL/MM3 (4.50-5.90); RED CELL DISTRIBUTION WIDTH 15.3 % (11.6-17.2); WHITE BLOOD COUNT 0.2 TH/MM3 (4.0-11.0)
[2017-06-16 08:41] LABS: HEMO FLAGS AUTO DIFF
[2017-06-16 08:48] LABS: APTT (PATIENT) 33.1 SEC (24.3-30.1); INTERNATIONAL NORMALIZED RATIO 1.4 RATIO; PLATELET COUNT 13 TH/MM3 (150-450); PROTHROMBIN TIME - PATIENT 15.8 SEC (9.8-11.6)
[2017-06-16 08:58] LABS: ALKALINE PHOSPHATASE 88 U/L (45-117); ALT (GPT) 81 U/L (12-78); ANION GAP 6 MEQ/L (5-15); AST (GOT) 17 U/L (15-37); BICARBONATE 28.3 MEQ/L (21.0-32.0); BLOOD UREA NITROGEN 15 MG/DL (7-18); CHLORIDE 105 MEQ/L (98-107); GLOMERULAR FILTRATION RATE 106 ML/MIN (>89); POTASSIUM 3.7 MEQ/L (3.5-5.1); SODIUM (NA) 139 MEQ/L (136-145); TOTAL BILIRUBIN ADULT 1.4 MG/DL (0.2-1.0)
--- NOTE | 2017-06-16 09:03 | PD.ONC.PN ---
Subjective Subjective Remarks Tmax 100.0 overnight Pt reports he did not sleep well overnight Remains confused per RN Objective Data Date Time Temp Pulse Resp B/P (MAP) Pulse Ox O2 Delivery O2 Flow Rate FiO2 06/16/17 04:00 100.0 86 20 122/83 (96) 98 06/16/17 00:00 99.8 87 18 140/88 (105) 97 06/15/17 21:15 85 06/15/17 20:00 99.8 89 17 145/76 (99) 97 06/15/17 16:00 98.9 87 18 140/78 (98) 98 06/15/17 12:00 98.0 85 18 135/73 (93) 98 06/15/17 11:48 97.8 88 18 123/69 97 06/15/17 11:27 98.3 69 18 133/67 94 06/15/17 08:58 99.9 84 18 151/93 (112) 96 06/16/17 06/16/17 06/16/17 07:00 15:00 23:00 Intake Total 2159 ml Output Total 1500 ml Balance 659 ml Result Diagram: 06/16/17 0600 06/15/17 0542 Laboratory Results Laboratory Tests Test 06/16/17 06:00 White Blood Count 0.2 TH/MM3 Red Blood Count 2.51 MIL/MM3 Hemoglobin 7.3 GM/DL Hematocrit 21.7 % Mean Corpuscular Volume 86.6 FL Mean Corpuscular Hemoglobin 29.0 PG Mean Corpuscular Hemoglobin Concent 33.5 % Red Cell Distribution Width 15.3 % Platelet Count 13 TH/MM3 Mean Platelet Volume 8.2 FL CBC Comment AUTO DIFF Prothrombin Time 15.8 SEC Prothromb Time International Ratio 1.4 RATIO Activated Partial Thromboplast Time 33.1 SEC Fibrinogen 493 mg/dL Culture Results Microbiology Date/Time Source Procedure Growth Status 06/14/17 00:30 Blood Line Aerobic Blood Culture - Preliminary NO GROWTH IN 1 DAY Resulted 06/14/17 00:30 Blood Line Anaerobic Blood Culture - Preliminary NO GROWTH IN 1 DAY Resulted Administered Medications Medications (Trade) Dose Ordered Sig/Ivelisse Route PRN Reason Start Time Stop Time Status Last Admin Dose Admin Acetaminophen (Tylenol) 650 mg Q4H PRN PO fever>100.4 05/15/17 13:00 06/15/17 10:40 Citalopram Hydrobromide (CeleXA) 20 mg DAILY PO 05/16/17 09:00 06/16/17 08:33 Pantoprazole Sodium (Protonix) 20 mg DAILY PO 05/16/17 09:00 06/16/17 08:33 Ondansetron HCl (Zofran Inj) 4 mg Q6HR PRN IV PUSH nausea 05/15/17 14:00 06/15/17 08:15 Sodium Chloride (NS Flush) 5 ml UNSCH PRN IVF SEE PROTOCOL 05/15/17 15:00 06/11/17 08:44 Heparin Sodium (Porcine) (Heparin Central Flush) 250 units UNSCH PRN IV FLUSH SEE PROTOCOL 05/15/17 15:00 06/12/17 03:18 Sodium Chloride (NS Flush) UNSCH PRN IVF SEE PROTOCOL 05/15/17 18:45 06/12/17 03:18 Trimethoprim/ Sulfamethoxazole (Bactrim Ds 800-160 Mg) 1 tab MoWeFr@09 PO 05/16/17 09:00 Future Hold 05/25/17 08:37 Multi-Ingredient Mouthwash/Gargle (Magic Mouthwash Adult Liq) 5 ml QID SWISH-SWAL 05/16/17 13:00 06/16/17 08:33 Megestrol Acetate (Megace Liq) 300 mg DAILY PO 05/16/17 14:00 06/16/17 08:33 Magnesium Hydroxide (Milk Of Magnesia Liq) 30 ml DAILY PRN PO CONSTIPATION 05/21/17 11:30 06/06/17 13:20 Vancomycin HCl 1500 mg/Sodium Chloride 515 ml @ 250 mls/hr Q12H IV 05/26/17 08:00 06/16/17 08:33 Tramadol HCl (Ultram) 25 mg Q6H PRN PO PAIN 06/03/17 06:45 Future Hold 06/06/17 03:37 Cefepime HCl 2000 mg/Sodium Chloride 100 ml @ 200 mls/hr Q8H IV 06/06/17 02:00 06/16/17 01:20 Alprazolam (Xanax) 0.25 mg Q8H PRN PO anxiety 06/06/17 10:15 Future Hold 06/08/17 02:39 Potassium Chloride (KCl) 30 meq DAILY PO 06/08/17 12:00 10/7/17 08:33 Micafungin Sodium 150 mg/Sodium Chloride 100 ml @ 100 mls/hr Q24H IV 06/08/17 18:00 06/15/17 16:55 Diphenhydramine HCl (Benadryl) 25 mg Q4H PRN PO SEE LABEL COMMENTS 06/09/17 14:30 06/15/17 10:40 Fat Emulsion Intravenous 250 ml @ 10 mls/hr Q24H IV-CENTRAL 06/09/17 20:00 06/15/17 19:39 Multivitamins 10 ml/Folic Acid 1 mg/Amino Acids/ Electrolytes/ Dextrose 2,010.2 ml @ 60 mls/hr Q24H IV 06/14/17 20:00 06/15/17 19:38 Objective Remarks GENERAL: Elderly male upright in bed, moaning on approach. SKIN: Warm and dry. HEAD: Normocephalic. EYES: No injection or drainage. NECK: Supple, trachea midline. CARDIOVASCULAR: +S1/S2 RESPIRATORY: Clear anteriorly. Breathing unlabored. GASTROINTESTINAL: Abdomen soft, non-tender, nondistended. EXTREMITIES: No cyanosis. Left knee remains somewhat swollen. NEUROLOGICAL: Patient is alert but confused. Follows commands. Moving all extremities. Assessment/Plan Problem List: (1) AML (acute myeloblastic leukemia) ICD Codes: C92.00 - Acute myeloblastic leukemia, not having achieved remission Plan: 05/15/17: Admission. given Hydrea. [facility] performed Leukapheresis bringing WBC from >100K to 44K. 05/16/17: D1. SONIA-C + Maria Del Rosario. 1 unit pRBC 05/17/17: D2. no transfusion. tolerating chemo 05/19/17: D4. 1 unit platelets today. No evidence of tumor lysis. Pt finished idarubicin yesterday. Continue SONIA-C. 05/20/17 D5: 1 unit platelets, 2 units PRBC's today. Will add on xanax prn and 1mg xanax at HS scheduled. Continue chemo, continue to monitor blood counts. 05/23/17: D8: Pt to have final bag chemo hung tonight. Transfuse 1 unit irradiated platelets, 1 unit irradiated PRBC's today. 05/24/17: D9: We'll transfuse 1 unit irradiated packed red blood cells today for hemoglobin of 6.9 05/25/17: D10. transfuse 1 unit platelets. pain in left knee and right shoulder. swelling in left knee. 06/12/17: D28. 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 --He presented with hyperleukocytosis and acute blast crises. (2) Pancytopenia ICD Codes: D61.818 - Other pancytopenia Status: Acute Plan: --transfuse him for hemoglobin of 7 or less. -- irradiated/CMV-negative blood products. --transfuse for platelet count of 10 or less. (3) Coagulopathy ICD Codes: D68.9 - Coagulation defect, unspecified Status: Acute Plan: --monitor coags, fibrinogen, LDH and haptoglobin (4) Swelling of left knee joint ICD Codes: M25.462 - Effusion, left knee Status: Acute Plan: --diff dx includes but is not limited to gout vs pseudogout, vs. hemarthrosis vs. septic joint vs. arthritis. --MRI of knee shows joint effusion, unable to tap until counts recover --on abx. ID following. --ortho saw patient on 05/30 and recommends medical management, close observation and intervention if symptoms worsen (5) Sepsis ICD Codes: A41.9 - Sepsis, unspecified organism Plan: --ID following --BC 06/13: BC no growth --BC 06/11: BC no growth --BC on 06/09 showed no growth --+BC, 05/26--G[facility] --on Cefepime, Vanco and Micafungin (6) Protein-calorie malnutrition, moderate ICD Codes: E44.0 - Moderate protein-calorie malnutrition Status: Acute Plan: -started on TPN on 06/09 (7) Transaminitis ICD Codes: R74.0 - Nonspecific elevation of levels of transaminase and lactic acid dehydrogenase [LDH] Plan: ?d/t TPN --monitor for trend Assessment 72y/o male with acute myeloid leukemia with blast crisis. 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 Plan 1. Per Hospice, he is moving to [facility] in [place] today around 11am. 2. No transfusion today 3. Supportive care. Problem Qualifiers (1) AML (acute myeloblastic leukemia): Qualified Codes: C92.00 - Acute myeloblastic leukemia, not having achieved remission Arin Castillo Jun 16, 2017 09:02
--- NOTE | 2017-06-16 09:36 | HHI.PR ---
Objective Objective Results - Vital Signs Date Time Temp Pulse Resp B/P (MAP) Pulse Ox O2 Delivery O2 Flow Rate FiO2 06/16/17 04:00 100.0 86 20 122/83 (96) 98 06/16/17 00:00 99.8 87 18 140/88 (105) 97 06/15/17 21:15 85 06/15/17 20:00 99.8 89 17 145/76 (99) 97 06/15/17 16:00 98.9 87 18 140/78 (98) 98 06/15/17 12:00 98.0 85 18 135/73 (93) 98 06/15/17 11:48 97.8 88 18 123/69 97 06/15/17 11:27 98.3 69 18 133/67 94 I/O 06/15/17 06/15/17 06/15/17 06/16/17 06/16/17 06/16/17 07:00 15:00 23:00 07:00 15:00 23:00 Intake Total 2728 ml 290 ml 1040 ml 2159 ml 182 ml Output Total 1300 ml 700 ml 1900 ml 1500 ml Balance 1428 ml -410 ml -860 ml 659 ml 182 ml Intake Oral 240 ml 1040 ml 120 ml IV Total 2488 ml 2039 ml 182 ml Platelets 290 ml Output Urine Total 1300 ml 700 ml 1900 ml 1500 ml # Bowel Movements 3 1 Result Diagram: 06/16/17 0600 06/16/17 0600 Imaging Last Impressions Chest X-Ray 05/16/17 0700 Signed Impressions: Service Date/Time: Tuesday, May 16, 2017 07:41 - CONCLUSION: The lungs are clear. No evidence of pneumothorax. Ethan Sabillon MD [facility] 05/15/17 0000 Signed Impressions: Service Date/Time: Monday, May 15, 2017 14:57 - CONCLUSION: Normal study. Ejection fraction 72%% Man Burden MD Catheter Placement X-Ray 05/15/17 0000 Signed Impressions: Service Date/Time: Monday, May 15, 2017 17:46 - CONCLUSION: Uncomplicated line placement as above. Man Burden MD Other Results Laboratory Tests Test 06/16/17 06:00 White Blood Count 0.2 Red Blood Count 2.51 Hemoglobin 7.3 Hematocrit 21.7 Mean Corpuscular Volume 86.6 Mean Corpuscular Hemoglobin 29.0 Mean Corpuscular Hemoglobin Concent 33.5 Red Cell Distribution Width 15.3 Platelet Count 13 Mean Platelet Volume 8.2 CBC Comment AUTO DIFF Prothrombin Time 15.8 Prothromb Time International Ratio 1.4 Activated Partial Thromboplast Time 33.1 Fibrinogen 493 Blood Urea Nitrogen 15 Creatinine 0.73 Random Glucose 122 Total Protein 6.3 Albumin 1.8 Calcium Level 8.8 Phosphorus Level 2.5 Magnesium Level 2.0 Alkaline Phosphatase 88 Aspartate Amino Transf (AST/SGOT) 17 Alanine Aminotransferase (ALT/SGPT) 81 Total Bilirubin 1.4 Sodium Level 139 Potassium Level 3.7 Chloride Level 105 Carbon Dioxide Level 28.3 Anion Gap 6 Estimat Glomerular Filtration Rate 106 Triglycerides Level 86 Date/Time Source Procedure Growth Status 06/14/17 00:30 Blood Line Aerobic Blood Culture - Preliminary NO GROWTH IN 1 DAY Resulted 06/14/17 00:30 Blood Line Anaerobic Blood Culture - Preliminary NO GROWTH IN 1 DAY Resulted 06/07/17 11:15 Fluid Synovial Fluid Gram Stain - Final Complete 06/07/17 11:15 Fluid Synovial Fluid Body Fluid Culture - Final NO GROWTH IN 72 HRS.--AEROBICALLY OR ... Complete Physical Exam Physical Exam pt's met w hospice today pt has signed up w hospice paper are signed/pt is scheduled to go to Hospice care center around 11 am d/w esthetics instructor Nataly Weston to transfer to Hospice see orders Lydia Obrien MD Jun 16, 2017 09:36
--- NOTE | 2017-06-16 10:15 | HHI.PR ---
Addendum to Inpatient Note Additional Information pt is going to hospice today will sign off Marta Montilla MD Jun 16, 2017 10:15
[2017-06-16 10:34] LABS: BANDS 5 % (0-6); PLATELET ESTIMATE SMEAR RARE (NORMAL); PLATELET MORPHOLOGY NORMAL (NORMAL); POLYS (SEG NEUTROPHILS) 10 % (16-70); SCAN/DIFF FINAL DIFF MANUAL; WBC DIFF SAMPLE 20
--- NOTE | 2017-07-04 17:50 | HHI.DS ---
Discharge Summary Admission Date May 15, 2017 at 12:10 Discharge Date: Jun 16, 2017 Admitting Diagnosis (1) AML (acute myeloblastic leukemia) ICD Codes: C92.00 - Acute myeloblastic leukemia, not having achieved remission (2) Pancytopenia ICD Codes: D61.818 - Other pancytopenia Status: Acute (3) Coagulopathy ICD Codes: D68.9 - Coagulation defect, unspecified Status: Acute (4) Anxiety and depression ICD Codes: F41.8 - Other specified anxiety disorders Status: Chronic (5) Familial tremor ICD Codes: G25.0 - Essential tremor Status: Chronic (6) Protein-calorie malnutrition, moderate ICD Codes: E44.0 - Moderate protein-calorie malnutrition Status: Acute (7) Thrombocytopenia ICD Codes: D69.6 - Thrombocytopenia, unspecified Status: Acute (8) Anemia ICD Codes: D64.9 - Anemia, unspecified Status: Acute (9) right forearm swelling Status: Acute (10) Swelling of left knee joint ICD Codes: M25.462 - Effusion, left knee Status: Acute Procedures CT guided bone marrow bx 06/01 Imaging Last Impressions Chest X-Ray 06/13/17 0600 Signed Impressions: Service Date/Time: Tuesday, June 13, 2017 06:45 - CONCLUSION: Mild basilar airspace disease similar to June 10. Cardiomegaly. Shravan Saldaña MD Brain MRI 06/07/17 0000 Signed Impressions: Service Date/Time: May 17:39 - CONCLUSION: 1. No acute intracranial abnormality. No evidence of encephalitis. 2. Minimal chronic white matter changes. 3. Mild sinus disease. Man Ashton MD Bone Biopsy CT 06/01/17 0600 Signed Impressions: Service Date/Time: Thursday, June 01, 2017 12:15 - CONCLUSION: 1. Uncomplicated CT guided bone marrow aspirate. 2. Uncomplicated CT guided bone marrow biopsy. Siddharth Diamond MD Head CT 05/31/17 1755 Signed Impressions: Service Date/Time: May 19:34 - CONCLUSION: Negative noncontrast head CT. Man Ashton MD Upper Extremity Ultrasound 05/27/17 0000 Signed Impressions: Service Date/Time: Saturday, May 27, 2017 17:01 - CONCLUSION: 1. Acute thrombosis of the cephalic vein in the right forearm. 2. Otherwise, no sonographic evidence for right upper extremity DVT. Yunier Lange MD Shoulder X-Ray 05/25/17 0000 Signed Impressions: Service Date/Time: Thursday, May 25, 2017 14:18 - CONCLUSION: Negative for fracture. MRI of the knee had shown substantial leukemic infiltration. Jason Crawford MD FACR Knee X-Ray 05/25/17 0000 Signed Impressions: Service Date/Time: Thursday, May 25, 2017 14:21 - CONCLUSION: Negative for fracture. Moderate joint effusion. Jason Crawford MD FACR Knee MRI 05/25/17 0000 Signed Impressions: Service Date/Time: Thursday, May 25, 2017 13:35 - CONCLUSION: Joint effusion as described above intense enhancement. Considerations would include both inflammatory process as well as involvement with leukemia Marrow placement show intense enhancement consistent with leukemic infiltration. Jason Crawford MD FACR [facility] 05/15/17 0000 Signed Impressions: Service Date/Time: Monday, May 15, 2017 14:57 - CONCLUSION: Normal study. Ejection fraction 72%% Man Burden MD Catheter Placement X-Ray 05/15/17 0000 Signed Impressions: Service Date/Time: Monday, May 15, 2017 17:46 - CONCLUSION: Uncomplicated line placement as above. 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 Patient had been treated with Vidaza until a few months ago when he became pancytopenic. He was then switched to Dacogen and received 1 cycle but he continued to remain pancytopenic. Patient was admitted to the hospital for induction chemotherapy for transformed acute myeloid leukemia. Per review of Dr. Ibanez's notes, patient was being considered for stem cell transplant at [facility] [place] and was waiting for donor. Patient is currently receiving induction chemotherapy and receiving supportive care with platelets and packed red blood cell transfusion. He is on empiric antibiotics. CBC is significant for pancytopenia, hemoglobin 7.7, hematocrit 22.3, platelets 12, neutrophils 0.3, WBC 7.7. LDH 831. During this hospitalization, he had a MUGA scan which was a normal study, ejection fraction 72%Patient denies any chest pain, shortness of breath. No fever. Appetite has been very good. Has a few oral sores that are being treated with Magic mouthwash. He has scattered petechia to both legs. No active bleeding. Hospitalist services were requested for medical management. Pt. had a protracted prolonged hospitalization course with multiple complications including DVT, sepsis, delirium. During the course of the hospitalization the following occurred. 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 Admitted for chemotherapy induction. Acute myeloblastic leukemia Pancytopenia -Dr. Ibanez managed pt. He completed chemo 05/23 -CBC were monitored daily. -Multiple blood product transfusions were done during hospitalization. -Monitored for bone marrow recovery. It was slow to respond. -CT guided bone marrow bx 06/01, results came back. Minimal residual disease. -continue with blood product replacement per heme -bone marrow remain suppressed. Pt. developed Coagulopathies -Monitored for bleeding - fibrinogen levels per oncology, elevated. -Required Vit K Pt. became confused, likely metabolic encephalopathy -CT head no acute findings -limited narcotics -continued to reorient frequently, inc. mobility -remained poorly motivated. Enc. out of bed -Mentation improved some but became very restless. C/P of significant Left knee and right shoulder pain, ? septic joint, effusion -MRI left knee noted, joint effusion, unable to have arthrocentesis due to low platelets-initially. -ID was consulted, input appreciated -Ortho followed, input appreciated -Continued with empiric antibiotic -Continued with Allopurinol 100 mg po bid -Continued [place] PRN -s/p arthro-centesis , fluid appeared bloody Gram stain and c/s neg Cell count noted -Knee pain improved, however very little activitu. Pt. noted with fevers, early sepsis. Had positive blood cultures, ? Bacteremia , left knee effusion. -Appreciated ID input -Continued with empiric antibiotics per ID -Cefepime, Micafungin, Vanco -Blood and line cultures positive for Staph epi -per ID, no need to remove port -fevers improved, continued to follow cultures. . Was noted with right arm swelling, positive for DVT cephalic vein -Elevate arm as needed -Warm compresses -no anticoagulation recommended at this time due to low platelets. -right arm swelling improved, faint erythema Poor appetite, found with protein calorie malnutrition -calorie count done -started on TPN -remained anorexic, TPN rate adjusted. No SCDs or anticoagulation recommended at this time due to thrombocytopenia Started on Protonix for GI prophylaxis PT and OT to increase mobility bone marrow recovery slow progress, Pt. remained debilitated, not very motivated. Palliative care consulted. They met with , she requested hospice. Pt. discharged to hospice care center Pt Condition on Discharge: Fair Discharge Disposition: Hospice/Med Facility Discharge Instructions DIET: Follow Instructions for: As Tolerated, No Restrictions Fluid Restrictions: none Activities you can perform: Weight Bearing as Cyndi Continued Medications: Acyclovir (Acyclovir) 400 Mg Tab 400 MG PO BID for Mgmt Viral Infection, TAB 0 Refills Alprazolam (Alprazolam) 0.5 Mg Tab 0.5 MG PO TID NEB PRN for ANXIETY, TAB 0 Refills Ciprofloxacin (Cipro) 250 Mg Tab 250 MG PO BID for Infection, TAB 0 Refills Escitalopram (Lexapro) 20 Mg Tab 20 MG PO DAILY, #30 TAB 0 Refills Fluconazole (Fluconazole) 100 Mg Tab 100 MG PO DAILY for Infection, TAB 0 Refills Nystatin Liq (Nystatin Liq) 100,000 unit/ml Susp 5 ML SWISH-SWAL QID for Infection, ML 0 Refills Kjfyrykj-Homuqmuiwzcoemg-Qafpscawi Liq (Magic Mouthwash Adult Liq) 120 Ml Susp 5 ML SWISH-SWAL ACHS for Mouth sores, #120 ML 0 Refills Each 5mL contains: Nystatin 200,000units, Diphenhydramine 4.25mg, Viscous Lidocaine 10mg, Hernández syrup 0.8 mL Rabeprazole (Aciphex) 20 Mg Tab 20 MG PO DAILY for Reflux, #30 TAB 0 Refills Sulfamethoxazole-Trimethoprim (Sulfamethoxazole-Trimethoprim) 800-160 Mg Tab 1 TAB PO BID for Infection, TAB 0 Refills Discontinued Medications: Megestrol Liq (Megace Liq) 40 Mg/Ml Susp 300 MG PO DAILY for Improve Appetite, ML 0 Refills Viola Sanon Jul 04, 2017 17:50
== END 2017-06-16 11:12 | disposition hospice, inpatient (51) | DRG 837 ==
LOC: HOCB 12:10
PROVIDERS: ADMIT Internal Medicine; ATTEND Internal Medicine
PROC: 02HV33Z Insertion of Infusion Device into Superior Vena Cava, Percutaneous Approach (ICD-10-PCS; 2017-05-15)
PROC: 3E04305 Introduction of Other Antineoplastic into Central Vein, Percutaneous Approach (ICD-10-PCS; principal; 2017-05-16)
PROC: 30233N1 Transfusion of Nonautologous Red Blood Cells into Peripheral Vein, Percutaneous Approach (ICD-10-PCS; 2017-05-16)
PROC: 30233R1 Transfusion of Nonautologous Platelets into Peripheral Vein, Percutaneous Approach (ICD-10-PCS; 2017-05-16)
PROC: 07DR3ZX Extraction of Iliac Bone Marrow, Percutaneous Approach, Diagnostic (ICD-10-PCS; 2017-06-01)
PROC: 0S9D3ZX Drainage of Left Knee Joint, Percutaneous Approach, Diagnostic (ICD-10-PCS; 2017-06-07)
DX: Z51.11 Encounter for antineoplastic chemotherapy (principal); G93.41 Metabolic encephalopathy; C92.00 Acute myeloblastic leukemia, not having achieved remission; I47.2 Ventricular tachycardia; A41.9 Sepsis, unspecified organism; D61.818 Other pancytopenia; E44.0 Moderate protein-calorie malnutrition; D68.9 Coagulation defect, unspecified; T82.7XXA Infection and inflammatory reaction due to other cardiac and vascular devices, implants and grafts, initial encounter; I82.611 Acute embolism and thrombosis of superficial veins of right upper extremity; T80.211A Bloodstream infection due to central venous catheter, initial encounter; R51 Headache; R74.0 Nonspecific elevation of levels of transaminase and lactic acid dehydrogenase [LDH]; R23.3 Spontaneous ecchymoses; K21.9 Gastro-esophageal reflux disease without esophagitis; F41.9 Anxiety disorder, unspecified; F32.9 Major depressive disorder, single episode, unspecified; K22.70 Barrett's esophagus without dysplasia; M25.511 Pain in right shoulder; G25.0 Essential tremor; M17.0 Bilateral primary osteoarthritis of knee; M25.462 Effusion, left knee; R50.81 Fever presenting with conditions classified elsewhere; Z51.5 Encounter for palliative care; Z66 Do not resuscitate; K59.00 Constipation, unspecified; E87.6 Hypokalemia; B95.7 Other staphylococcus as the cause of diseases classified elsewhere; T45.1X5A Adverse effect of antineoplastic and immunosuppressive drugs, initial encounter; Z79.899 Other long term (current) drug therapy; Z87.442 Personal history of urinary calculi; Z85.72 Personal history of non-Hodgkin lymphomas
CPT/HCPCS: 36430; 36511; 36556; 38221; 70450; 70553; 71010; 71020; 73030; 73564; 73723; 76937; 77001; 77012; 78472; 80053; 80202; 81001; 82140; 82565; 82948; 83010; 83615; 83735; 83880; 84100; 84155; 84478; 84550; 85007; 85014; 85018; 85027; 85097; 85384; 85610; 85652; 85730; 86403; 86644; 86645; 86850; 86900; 86901; 86920; 86945; 87040; 87070; 87077; 87186; 87205; 88305; 88311; 88313; 89051; 89060; 93005; 93306; 93308; 93971; 99152; 99153; A9560; A9579; C1752; C1830; G0364; J0692; J0696; J1100; J1170; J1626; J1642; J1644; J1720; J1940; J2248; J2250; J2405; J2543; J3010; J3370; J3480; J7030; J7040; J7050; J9100; J9211; P9037; P9040; P9052